=== PATIENT | female | born 1965 | race Caucasian/White ===

== ENCOUNTER 2020-03-01 16:15 | Observation (INO) | payer MEDICARE, OTHER ==
[~2020-03-01] VITALS: Ht 154 cm; Wt 95.2 kg
[~2020-03-01 16:15] MED LIST: ESCI20TA2; NASACORT
[2020-03-01] MEDS ORDERED: FAMOTIDINE 20MG/2ML IV (PEPCID) IV STA (16:31)
[2020-03-01 16:37] LABS: BASOPHILS % (AUTO) 0 % (0-10); EOSINOPHILS # (AUTO) 0.3 10^3/uL (0.0-0.3); EOSINOPHILS % (AUTO) 3 % (0-10); HEMATOCRIT 45 % (35-52); HEMOGLOBIN 15.6 g/dL (11.5-16.0); LYMPHOCYTES # (AUTO) 3.4 10^3/uL (1.0-4.0); LYMPHOCYTES % (AUTO) 34 % (12-44); MEAN CORPUSCULAR HEMOGLOBIN 29 pg (25-34); MEAN CORPUSCULAR HGB CONC 35 g/dL (32-36); MEAN CORPUSCULAR VOLUME 84 fL (80-99); MEAN PLATELET VOLUME 9.6 fL (9.0-12.2); MONOCYTES % (AUTO) 10 % (0-12); NEUTROPHILS # (AUTO) 5.3 10^3/uL (1.8-7.8); NEUTROPHILS % (AUTO) 52 % (42-75); PLATELET COUNT 319 10^3/uL (130-400); WHITE BLOOD COUNT 10.1 10^3/uL (4.3-11.0)
--- NOTE | 2020-03-01 16:38 | ED Chest Pain ---
General Chief Complaint: Chest Pain Stated Complaint: CHEST PAIN/SOB Source: patient Exam Limitations: no limitations (JORDI AGUILAR) History of Present Illness Date Seen by Provider: Mar 01, 2020 Time Seen by Provider: 16:14 Initial Comments Patient presents to the ER by private conveyance from home with chief complaint since yesterday evening when she went to bed she started having some right sided upper chest pain radiating into her neck and right shoulder and right jaw. She has no previous history of this pain or cardiac history. Her brother had his first heart attack when he was 42 years old. She has a history of asthma but she does not smoke cigarettes. She is not having any wheezing or shortness of air. She says the pain is okay as long she sits perfectly still but is soon as she starts getting up and walking around the pain intensifies and feels like pressure on her chest. She has hypertension and hyperlipidemia but no diabetes. She says several years ago when she was in [place] she had a work-up by a sheet writer and was told everything was okay and she was dismissed from his care. She has not establish care with a primary care provider here. She does not take any medicines routinely. She says she cannot take aspirin because it causes her to have seizures. She has not taken anything for the pain. She denies a history of reflux but she does take ibuprofen daily for her rheumatoid arthritis and scleroderma. She used to be followed by a lead assistant manager but is not on any antirheumatic's or antiimmunologic's. She has not been on steroids recently. (JORDI AGUILAR) Initial Comments PT STATES SHE HAS NOT SEEN A DR OF ANY KIND SINCE 2015 (JOSÉ STOKES DO) Allergies and Home Medications Allergies Coded Allergies: Aspirin (Unverified Allergy, Mild, 06/09/08) Penicillins (Unverified Allergy, Mild, 06/09/08) Uncoded Allergies: CODIENE (Allergy, Mild, 06/09/08) Patient Home Medication List Home Medication List Reviewed: Yes (JORDI AGUILAR) Review of Systems Review of Systems Constitutional: No chills, No diaphoresis EENTM: No Blurred Vision, No Double Vision Respiratory: Denies Cough, Denies Shortness of Air Cardiovascular: See HPI, Chest Pain; Denies Edema, Denies Irregular Heart Rate, Denies Lightheadedness, Denies Palpitations, Denies Syncope Gastrointestinal: Denies Abdomen Distended, Denies Abdominal Pain, Denies Constipated, Denies Diarrhea, Denies Difficulty Swallowing, Denies Nausea Genitourinary: Denies Burning, Denies Discharge Musculoskeletal: No back pain, No joint pain (JORDI AGUILAR) All Other Systems Reviewed Negative Unless Noted: Yes (JORDI AGUILAR) Past Bfzdaoq-Nzptbj-Rkajou Hx Past Med/Social Hx: Reviewed and Corrections made (JOSÉ STOKES DO) Patient Social History Alcohol Use: Denies Use Recreational Drug Use: No Smoking Status: Never a Smoker (JORDI AGUILAR) Alcohol Use: Occasionally Uses Recreational Drug Use: No Smoking Status: Never a Smoker (JOSÉ STOKES DO) Seasonal Allergies Seasonal Allergies: Yes (JOSÉ STOKES DO) Past Medical History Surgeries: Yes (C-SPINE SURGERY; LEFT ELBOW ULNAR NERVE SURGERY) Gallbladder, Orthopedic Respiratory: No Cardiac: Yes High Cholesterol, Hypertension Neurological: Yes 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 Genitourinary: No Gastrointestinal: Yes (S/P CHOLECYSTECTOMY; CELIAC DISEASE) Gall Bladder Disease Musculoskeletal: Yes (SCLERODERMA; C-SPINE SURGERY; LEFT ELBOW ULNAR NERVE SURGERY) Rheumatoid Arthritis Endocrine: No HEENT: Yes (SINUS PROBLEMS) Cancer: No Psychosocial: Yes Anxiety, Depression Integumentary: No Blood Disorders: No (JOSÉ STOKES DO) Physical Exam Vital Signs Vital Signs - First Documented 03/01/20 16:26 Temp 35.7 Pulse 76 Resp 18 B/P (MAP) 140/68 (92) Pulse Ox 100 O2 Delivery Room Air (JOSÉ STOKES DO) Vital Signs Capillary Refill : (JORDI AGUILAR) Height, Weight, BMI Height: '" Weight: lbs. oz. kg; BMI Method: General Appearance: WD/WN, Anxious, Mild Distress HEENT: PERRL/EOMI, Pharynx Normal, Moist Mucous Membranes Neck: Full Range of Motion, Normal Inspection Respiratory: Chest Non Tender, Lungs Clear, Normal Breath Sounds, No Accessory Muscle Use, No Respiratory Distress Cardiovascular: Regular Rate, Rhythm, No Edema, Normal Peripheral Pulses Gastrointestinal: Normal Bowel Sounds, Non Tender, Soft Extremity: Normal Capillary Refill, Normal Inspection, Normal Range of Motion, Non Tender, No Calf Tenderness, No Pedal Edema Neurologic/Psychiatric: Alert, Oriented x3 Skin: Normal Color, Damp (Mild sweating) (JORDI AGUILAR) General Appearance: Obese (JOSÉ STOKES K DO) Progress/Results/Core Measures Results/Orders Lab Results Laboratory Tests Test 03/01/20 16:30 Range/Units White Blood Count 10.1 4.3-11.0 10^3/uL Red Blood Count 5.32 H 3.80-5.11 10^6/uL Hemoglobin 15.6 11.5-16.0 g/dL Hematocrit 45 35-52 % Mean Corpuscular Volume 84 80-99 fL Mean Corpuscular Hemoglobin 29 25-34 pg Mean Corpuscular Hemoglobin Concent 35 32-36 g/dL Red Cell Distribution Width 11.6 10.0-14.5 % Platelet Count 319 130-400 10^3/uL Mean Platelet Volume 9.6 9.0-12.2 fL Immature Granulocyte % (Auto) 0 % Neutrophils (%) (Auto) 52 42-75 % Lymphocytes (%) (Auto) 34 12-44 % Monocytes (%) (Auto) 10 0-12 % Eosinophils (%) (Auto) 3 0-10 % Basophils (%) (Auto) 0 0-10 % Neutrophils # (Auto) 5.3 1.8-7.8 10^3/uL Lymphocytes # (Auto) 3.4 1.0-4.0 10^3/uL Monocytes # (Auto) 1.0 0.0-1.0 10^3/uL Eosinophils # (Auto) 0.3 0.0-0.3 10^3/uL Basophils # (Auto) 0.0 0.0-0.1 10^3/uL Immature Granulocyte # (Auto) 0.0 0.0-0.1 10^3/uL Prothrombin Time 12.8 12.2-14.7 SEC INR Comment 0.9 0.8-1.4 Activated Partial Thromboplast Time 33 24-35 SEC D-Dimer < 0.27 0.00-0.49 UG/ML Sodium Level 138 135-145 MMOL/L Potassium Level 4.2 3.6-5.0 MMOL/L Chloride Level 103 98-107 MMOL/L Carbon Dioxide Level 25 21-32 MMOL/L Anion Gap 10 5-14 MMOL/L Blood Urea Nitrogen 18 7-18 MG/DL Creatinine 0.85 0.60-1.30 MG/DL Estimat Glomerular Filtration Rate > 60 BUN/Creatinine Ratio 21 Glucose Level 107 H 70-105 MG/DL Calcium Level 9.2 8.5-10.1 MG/DL Corrected Calcium 9.0 8.5-10.1 MG/DL Magnesium Level 2.2 1.6-2.4 MG/DL Total Bilirubin 0.5 0.1-1.0 MG/DL Aspartate Amino Transf (AST/SGOT) 21 5-34 U/L Alanine Aminotransferase (ALT/SGPT) 20 0-55 U/L Alkaline Phosphatase 90 40-136 U/L Myoglobin 31.8 10.0-92.0 NG/ML Troponin I < 0.028 <0.028 NG/ML Total Protein 7.4 6.4-8.2 GM/DL Albumin 4.3 3.2-4.5 GM/DL Lipase 35 8-78 U/L (JACKY,JOSÉ K DO) My Orders Orders - JACKYJOSÉ K DO Metoprolol Succinate (Xl) Tab (Toprol Xl (03/01/20 18:15) Enoxaparin Injection (Lovenox Injection) (03/01/20 18:15) Clopidogrel Tablet (Plavix Tablet) (03/01/20 18:15) Pantoprazole Injection (Protonix Injecti (03/01/20 18:15) (JACKY,JOSÉ K DO) Medications Given in ED Current Medications Medications Dose Ordered Sig/Issa Route Start Time Stop Time Status Last Admin Dose Admin Al Hydrox/Mg Hydrox/Simethicone 30 ml ONCE ONCE PO 03/01/20 16:45 03/01/20 16:46 DC 03/01/20 16:42 30 ML Clopidogrel Bisulfate 300 mg ONCE ONCE PO 03/01/20 18:15 03/01/20 18:16 03/01/20 18:14 300 MG Enoxaparin Sodium 100 mg ONCE ONCE SC 03/01/20 18:15 03/01/20 18:16 03/01/20 18:15 100 MG Lidocaine HCl 15 ml ONCE ONCE PO 03/01/20 16:45 03/01/20 16:46 DC 03/01/20 16:42 15 ML Pantoprazole 40 mg ONCE ONCE IV 03/01/20 18:15 03/01/20 18:16 03/01/20 18:15 40 MG (JOSÉ STOKES Barbara BLOUNT) Vital Signs/I&O 03/01/20 03/01/20 16:26 16:26 Temp 35.7 Pulse 76 Resp 18 B/P (MAP) 140/68 (92) Pulse Ox 100 O2 Delivery Room Air (JOSÉ STOKES ) Progress Progress Note #1: Time: 16:38 Progress Note Patient is perimenopausal but has not had any hemoptysis coughing shortness of air or hypoxia/tachycardia. Pulmonary embolism is less likely. Initial EKG is reassuring. Her family history and personal medical history is concerning. Even with a negative first troponin her heart score would be 4 points, high risk. Giving her a GI cocktail to entertain the possibility of GERD with her frequent use of NSAIDs. Progress Note #2: Time: 18:00 Progress Note Care of the patient transferred at shift change to Dr. Stokes. Labs are in and her initial troponin and EKG are normal. She does have significant risk factors and we recommend consultation with cardiology for final disposition. (JORDI AGUILAR) Progress Note : Progress Note 1745-ASSUMED CARE FROM DR. AGUILAR. PT IS PAIN-FREE AND HAS NO COMPLAINTS, ALL LAB IS NORMAL, IS EKG. PT HAS NOT REQUIRED ANY NTG AT THIS TIME. (JOSÉ STOKES DO) Initial ECG Impression Date: Mar 01, 2020 Initial ECG Impression Time: 16:19 Initial ECG Rate: 74 Initial ECG Rhythm: Normal Sinus Initial ECG Intervals: Normal Initial ECG Impression: Normal Comment Normal sinus rhythm without clinically relevant ST elevation or depression (JORDI AGUILAR) Diagnostic Imaging Diagonstic Imaging: Xray Plain Films/CT/US/NM/MRI: chest Comments [facility], [place] NAME: LUCILA ALANIZ MED REC#: [id number] PT STATUS: REG ER : 1965 PHYSICIAN: JORDI AGUILAR MD ADMIT DATE: 03/01/20/ER Signed Date of Exam:03/01/20 CHEST 1 VIEW, AP/PA ONLY EXAMINATION: Chest 1 view HISTORY: Chest pain COMPARISON: None available. FINDINGS: Heart size and pulmonary vasculature are normal. The lungs are clear without consolidation, pleural effusion, or pneumothorax. The osseous structures are intact. Cervical fusion hardware is present. IMPRESSION: 1. No acute radiographic abnormality in the chest. Dictated by: Dictated on workstation # [id number] Dict: 03/01/201656 Trans: 03/01/201701 AS6 [id number] Interpreted by: ELIER ZAMORA DO Electronically signed by: ELIER ZAMORA DO 03/01/201701 Reviewed: Reviewed by Me (JORDI AGUILAR) Departure Communication (Admissions) 1757--SPOKE WITH DR. NINO, ORDERS NOTED. ADVISES ADMIT TO HOSPITALIST 1801--SPOKE WITH DR. MARTINEZ, HOSPITALIST, ACCEPTS PT FOR ADMIT (JOSÉ STOKES DO) Impression Primary Impression: Chest pain Qualified Codes: R07.9 - Chest pain, unspecified Disposition: ADMITTED INPATIENT Condition: Stable Admissions Decision to Admit Reason: Admit from ER (General) Decision to Admit/Date: Mar 01, 2020 Time/Decision to Admit Time: 18:00 (JOSÉ STOKES DO) JORDI AGUILAR Mar 01, 2020 16:38 JOSÉ STOKES DO Mar 01, 2020 17:58
[2020-03-01] MEDS ORDERED: LIDOCAINE 2% VISCOUS 15 ML UDC PO ONE (16:45)
[2020-03-01] MEDS ORDERED: ANTACID SUSP 30 ML UDC (MYLANTA) PO ONE (16:45)
[2020-03-01 16:57] LABS: ALBUMIN 4.3 GM/DL (3.2-4.5); CHLORIDE 103 MMOL/L (98-107); INR 0.9 (0.8-1.4); POTASSIUM 4.2 MMOL/L (3.6-5.0); PROTHROMBIN TIME PATIENT 12.8 SEC (12.2-14.7); SODIUM 138 MMOL/L (135-145)
[2020-03-01 16:58] LABS: CALCIUM 9.2 MG/DL (8.5-10.1)
[2020-03-01 16:59] LABS: GLUCOSE 107 MG/DL (70-105); TOTAL PROTEIN 7.4 GM/DL (6.4-8.2)
--- NOTE | 2020-03-01 16:59 | Diagnostic Imaging Report ---
EXAMINATION: Chest 1 view HISTORY: Chest pain COMPARISON: None available. FINDINGS: Heart size and pulmonary vasculature are normal. The lungs are clear without consolidation, pleural effusion, or pneumothorax. The osseous structures are intact. Cervical fusion hardware is present. IMPRESSION: 1. No acute radiographic abnormality in the chest. Dictated by: Dictated on workstation # [id number]
[2020-03-01 17:01] LABS: BILIRUBIN,TOTAL 0.5 MG/DL (0.1-1.0); CARBON DIOXIDE 25 MMOL/L (21-32)
[2020-03-01 17:03] LABS: ALKALINE PHOSPHATASE 90 U/L (40-136); CREATININE SERUM 0.85 MG/DL (0.60-1.30); GFR ESTIMATED > 60
[2020-03-01 17:04] LABS: BUN/CREATININE RATIO 21
[2020-03-01 17:06] LABS: ALANINE AMINOTRANSFERASE 20 U/L (0-55); MAGNESIUM 2.2 MG/DL (1.6-2.4)
[2020-03-01 17:07] LABS: LIPASE 35 U/L (8-78)
[2020-03-01] MEDS ORDERED: ENOXAPARIN 100 MG/1 ML (LOVENOX) SYR SC ONE (18:15)
[2020-03-01] MEDS ORDERED: CLOPIDOGREL 300 MG (PLAVIX) TABLET PO ONE (18:15)
[2020-03-01] MEDS ORDERED: PANTOPRAZOLE 40 MG (PROTONIX) VIAL IV ONE (18:15)
[2020-03-01] MEDS ORDERED: meTOproloL SUCCINATE 50 MG (TOPROL XL) TAB PO SCH (18:15)
[2020-03-01 19:45] VITALS: BP 138/94
--- NOTE | 2020-03-01 19:45 | NUR ---
LUCILA ALANIZ admitted to room 405-1, with an admitting diagnosis of chest pain, on 03/01/20 from [place] via [place], accompanied by ED staff.LUCILA ALANIZ introduced to surroundings, call light, bed controls, phone, TV, temperature control, lights, meal times, smoking policy, visitor policy, side rail policy, bathrooms and showers. Patient Rights given to patient in the handbook. LUCILA ALANIZ verbalizes understanding that [facility] is not responsible for the loss or damage to any personal effects or valuables that are kept in the patients possession during their hospitalization. LUCILA ALANIZ verbalizes understanding of Interdisciplinary Patient Education. Patient and/or family were informed about the Rapid Response Team and its purpose.
[2020-03-01 20:00] VITALS: BP 134/94
[2020-03-01 20:15] VITALS: BP 124/63
[2020-03-01 20:26] VITALS: BP 149/77
[2020-03-01 20:30] VITALS: BP 119/57
[2020-03-01 20:45] VITALS: BP 116/58
--- NOTE | 2020-03-01 21:11 | NUR ---
THIS RN CONTACTED DR NINO AND INFORMED HIM THAT PATIENTS REPEAT 1 HR AFTER ADM EKG CAME BACK ABNORMAL. PATIENTS PREVIOUS EKG IN IN ED WAS OTHERWISE NORMAL. 2045 EKG INDICATED SINUS RHYTHM WITH MULTIPLE PVC'S. NO NEW ORDERS AT THIS TIME.
[2020-03-01] MEDS ORDERED: CATHETER FLUSH 10 ML SYR IV PRN (21:45)
[2020-03-02] VITALS (22 sets, daily range): BP systolic 109–153; BP diastolic 60–99
[2020-03-02] MEDS: CATHETER FLUSH 10 ML SYR IV SCH ×4 (00:03→21:00)
--- NOTE | 2020-03-02 01:27 | NUR ---
PT CALLED THIS RN INTO ROOM AND ADVISED SHE WAS HAVING 7/10 CHEST PAIN. PT DESCRIBED SHARP PAIN ACCOMPANIED BY HEAVY PRESSURE IN CENTER AND ON RIGHT SIDE OF CHEST RADIATING TO RIGHT NECK AND JAW. THIS RN TOOK VITALS AND PERFORMED AN EKG. VS: BP 148/86, HR 68, 18R, 98%O2. EKG INDICATED SINUS RHYTHM, PVC'S, AND NONSPECIFIC T ABNORMALITIES. AT THIS TIME PT STATED HER PAIN HAD MOSTLY SUBSIDED AND WAS REPLACED BY A DULL ACHE. THIS RN CONTACTED DR NINO AND INFORMED HIM OF PT COMPLAINT, VS, AND EKG RESULTS. ORDERS GIVEN FOR TYLENOL 650MG PO Q6HR PRN, AND PERCOCET 5/325 PO Q4HR PRN TO CONTROL PAIN. PATIENT DENIED NEED FOR PAIN MEDICATION AT THIS TIME.
[2020-03-02] MEDS ORDERED: oxyCODONE/APAP 5/325MG (PERCOCET 5) TABLET PO PRN (01:45)
[2020-03-02] MEDS ORDERED: ACETAMINOPHEN 325 MG TABLET PO PRN (01:45)
[2020-03-02] MEDS ORDERED: ENOXAPARIN 100 MG/1 ML (LOVENOX) SYR SC SCH (06:00)
[2020-03-02 06:19] LABS: BASOPHILS % (AUTO) 0 % (0-10); EOSINOPHILS # (AUTO) 0.3 10^3/uL (0.0-0.3); EOSINOPHILS % (AUTO) 3 % (0-10); HEMATOCRIT 43 % (35-52); HEMOGLOBIN 14.7 g/dL (11.5-16.0); LYMPHOCYTES # (AUTO) 2.9 10^3/uL (1.0-4.0); LYMPHOCYTES % (AUTO) 31 % (12-44); MEAN CORPUSCULAR HEMOGLOBIN 29 pg (25-34); MEAN CORPUSCULAR HGB CONC 34 g/dL (32-36); MEAN CORPUSCULAR VOLUME 85 fL (80-99); MEAN PLATELET VOLUME 9.2 fL (9.0-12.2); MONOCYTES # (AUTO) 0.9 10^3/uL (0.0-1.0); MONOCYTES % (AUTO) 9 % (0-12); NEUTROPHILS # (AUTO) 5.3 10^3/uL (1.8-7.8); NEUTROPHILS % (AUTO) 56 % (42-75); PLATELET COUNT 273 10^3/uL (130-400); WHITE BLOOD COUNT 9.4 10^3/uL (4.3-11.0)
[2020-03-02 07:07] LABS: ALANINE AMINOTRANSFERASE 15 U/L (0-55); ALBUMIN 3.7 GM/DL (3.2-4.5); ALKALINE PHOSPHATASE 72 U/L (40-136); BILIRUBIN,TOTAL 0.5 MG/DL (0.1-1.0); BUN/CREATININE RATIO 19; CALCIUM 8.7 MG/DL (8.5-10.1); CARBON DIOXIDE 23 MMOL/L (21-32); CHLORIDE 105 MMOL/L (98-107); CHOLESTEROL 237 MG/DL (< 200); CREATININE SERUM 0.78 MG/DL (0.60-1.30); GFR ESTIMATED > 60; GLUCOSE 103 MG/DL (70-105); HDL CHOLESTEROL 38 MG/DL (40-60); SODIUM 137 MMOL/L (135-145); TOTAL PROTEIN 6.5 GM/DL (6.4-8.2); TRIGLYCERIDES 217 MG/DL (<150); VLDL CHOLESTEROL 43 MG/DL (5-40)
[2020-03-02] MEDS ORDERED: PANTOPRAZOLE 40 MG (PROTONIX) VIAL IV SCH (09:00)
[2020-03-02] MEDS: meTOproloL SUCCINATE 50 MG (TOPROL XL) TAB PO SCH (09:16)
[2020-03-02] MEDS: CLOPIDOGREL 75 MG (PLAVIX) TABLET PO SCH (09:16)
[2020-03-02] MEDS ORDERED: REGADENOSON 0.4 MG/5 ML SYR (LEXISCAN) IV ONE (10:00)
[2020-03-02] MEDS ORDERED: methylPREDNISolone 125 MG (Solu-MEDROL) VIAL IV SCH (10:30)
[2020-03-02] MEDS ORDERED: FAMOTIDINE 20 MG (PEPCID) TABLET PO SCH (10:30)
[2020-03-02] MEDS ORDERED: diphenhydrAMINE 25 MG TAB (BENADRYL) PO SCH (10:30)
--- NOTE | 2020-03-02 10:36 | Consultation-Cardiology ---
HPI-Cardiology Cardiology Consultation: Date of Consultation 03/02/20 Time Seen by a Provider: 10:10 Date of Admission 03-01-2020 Attending Physician Cynthia Huerta MD Admitting Physician No,Local Physician Consulting Physician Mary Vora MD HPI: Chief Complaint: Chest pain Ms. Ley is a 54 yr old female admitted to 405 from the ED with c/o CP. She reports the pain started a few days ago. She reports it was mid-sternal, radiating up her neck, into her shoulder blades and down left arm. She states the discomfort was brought on with exertion and relieved with rest. Chest pain describes as a pressure, ache. Discomfort off and on all day yesterday. Reports feeling SOB with the chest pain. C/O palpitations, hard heart beat with the chest pain. No c/o n/v/d. No c/o fever or chills. No c/o LE swelling. No syncope or near syncope. Review of Systems-Cardiology Review of Systems Constitutional: No chills, No fever Eyes: No vision change Ears/Nose/Throat: No epistaxis, No recent hearing loss Respiratory: As described under HPI Cardiovascular: As described under HPI Gastrointestinal: No constipation, No diarrhea, No nausea, No vomiting Genitourinary: No dysuria, No hematuria Musculoskeletal: no symptoms reported Skin: No rash on exposed areas, No ulcerations on exposed areas Psychiatric/Neurological: No anxiety, No depression, No seizure, No focal w eakness, No syncope Hematologic: No bleeding abnormalities All Other Systems Reviewed Negative Unless Noted: Yes GPD-Rtguds-Qylxwk Hx Patient Social History Alcohol Use: Occasionally Uses Recreational Drug Use: No Smoking Status: Never a Smoker Recent Foreign Travel: No Recent Infectious Disease Expo: No Past Medical History PMH As described under Assessment. Family Medical History Family Medical History: Family h/o father having CAD sisi his 50's. Reports brothers x 2 having CAD and TX's in thier 40's. Family History: 19 FATHER Myocardial infarction, Onset:60 years & older Cataracts, Onset:60 years & older Deafness or hearing loss Dementia Hypertension Severe allergy, Onset: 19 MOTHER Arthritis, Onset:Adolescence Diabetes mellitus Severe allergy, Onset:Childhood G8 BROTHER Alcoholism, Onset:15's - 20 Myocardial infarction, Onset:40's - 50 Psychosocial problem, Onset:25's - 30 G8 BROTHER Arthritis, Onset:Adolescence Asthma Diabetes mellitus Hypertension G8 SISTER Arthritis, Onset: Allergies and Home Medications Allergies Coded Allergies: Penicillins (Unverified Allergy, Mild, 06/09/08) aspirin (Unverified Allergy, Mild, convulsions, 03/02/20) Uncoded Allergies: CODIENE (Allergy, Mild, 06/09/08) Physical Exam-Cardiology Physical Exam Vital Signs/I&O 03/02/20 03/02/20 03/02/20 03/02/20 00:00 00:10 01:17 03:46 Temp 36.2 36.4 Pulse 74 72 68 68 Resp 20 18 18 B/P (MAP) 141/82 (101) 148/86 (106) 145/64 (91) Pulse Ox 99 98 98 O2 Delivery Room Air Room Air Room Air 03/02/20 03/02/20 03/02/20 07:00 08:00 08:00 Temp 36.3 Pulse 63 79 Resp 16 B/P (MAP) 153/70 (97) Pulse Ox 96 96 O2 Delivery Room Air Room Air Capillary Refill : Less Than 3 SecondsLess Than 3 Seconds Constitutional: AAO x 3, well-developed, well-nourished HEENT: hearing is well preserved, oral hygience is good Neck: No carotid bruit; carotid pulses are 2 + bilaterally Respiratory: No accessory muscle use, No respiratory distress; chest expansion is symmetric, chest is bilaterally symmetric, lungs clear to auscultation Cardiovascular: regular rate-rhythm; No JVD; S1 and S2 Gastrointestinal: No tender; soft, round, audible bowel sounds Extremities: no lower extremity edema bilateral Neurologic/Psychiatric: grossly intact (moves all extremities) Skin: No rash on exposed areas, No ulcerations on exposed areas Data Review Labs Laboratory Tests 03/01/20 16:30: White Blood Count 10.1, Red Blood Count 5.32H, Hemoglobin 15.6, Hematocrit 45, Mean Corpuscular Volume 84, Mean Corpuscular Hemoglobin 29, Mean Corpuscular Hemoglobin Concent 35, Red Cell Distribution Width 11.6, Platelet Count 319, Mean Platelet Volume 9.6, Immature Granulocyte % (Auto) 0, Neutrophils (%) (Auto) 52, Lymphocytes (%) (Auto) 34, Monocytes (%) (Auto) 10, Eosinophils (%) (Auto) 3, Basophils (%) (Auto) 0, Neutrophils # (Auto) 5.3, Lymphocytes # (Auto) 3.4, Monocytes # (Auto) 1.0, Eosinophils # (Auto) 0.3, Basophils # (Auto) 0.0, Immature Granulocyte # (Auto) 0.0, Prothrombin Time 12.8, INR Comment 0.9, Activated Partial Thromboplast Time 33, D-Dimer < 0.27, Sodium Level 138, Potassium Level 4.2, Chloride Level 103, Carbon Dioxide Level 25, Anion Gap 10, Blood Urea Nitrogen 18, Creatinine 0.85, Estimat Glomerular Filtration Rate > 60, BUN/Creatinine Ratio 21, Glucose Level 107H, Calcium Level 9.2, Corrected Calcium 9.0, Magnesium Level 2.2, Total Bilirubin 0.5, Aspartate Amino Transf (AST/SGOT) 21, Alanine Aminotransferase (ALT/SGPT) 20, Alkaline Phosphatase 90, Myoglobin 31.8, Troponin I < 0.028, Total Protein 7.4, Albumin 4.3, Lipase 35 03/02/20 05:31: White Blood Count 9.4, Red Blood Count 5.05, Hemoglobin 14.7, Hematocrit 43, Mean Corpuscular Volume 85, Mean Corpuscular Hemoglobin 29, Mean Corpuscular Hemoglobin Concent 34, Red Cell Distribution Width 11.7, Platelet Count 273, Mean Platelet Volume 9.2, Immature Granulocyte % (Auto) 0, Neutrophils (%) (Auto) 56, Lymphocytes (%) (Auto) 31, Monocytes (%) (Auto) 9, Eosinophils (%) (Auto) 3, Basophils (%) (Auto) 0, Neutrophils # (Auto) 5.3, Lymphocytes # (Auto) 2.9, Monocytes # (Auto) 0.9, Eosinophils # (Auto) 0.3, Basophils # (Auto) 0.0, Immature Granulocyte # (Auto) 0.0, Sodium Level 137, Potassium Level 4.0, Chloride Level 105, Carbon Dioxide Level 23, Anion Gap 9, Blood Urea Nitrogen 15, Creatinine 0.78, Estimat Glomerular Filtration Rate > 60, BUN/Creatinine Ratio 19, Glucose Level 103, Calcium Level 8.7, Corrected Calcium 8.9, Total Bilirubin 0.5, Aspartate Amino Transf (AST/SGOT) 16, Alanine Aminotransferase (ALT/SGPT) 15, Alkaline Phosphatase 72, Total Protein 6.5, Albumin 3.7, Triglycerides Level 217H, Cholesterol Level 237H, LDL Cholesterol Direct 177H, VLDL Cholesterol 43H, HDL Cholesterol 38L Laboratory Tests 03/01/20 16:30 03/02/20 05:31 Radiology NAME: [facility] REC#: [id number] PT STATUS: REG ER : 1965 PHYSICIAN: JORDI AGUILAR MD ADMIT DATE: 03/01/20/ER Signed Date of Exam:03/01/20 CHEST 1 VIEW, AP/PA ONLY EXAMINATION: Chest 1 view HISTORY: Chest pain COMPARISON: None available. FINDINGS: Heart size and pulmonary vasculature are normal. The lungs are clear without consolidation, pleural effusion, or pneumothorax. The osseous structures are intact. Cervical fusion hardware is present. IMPRESSION: 1. No acute radiographic abnormality in the chest. Dictated by: Dictated on workstation # [id number] Dict: 03/01/201656 Trans: 03/01/201701 AS6 [id number] Interpreted by: ELIER ZAMORA DO Electronically signed by: ELIER ZAMORA DO 03/01/201701 ECG Impression ECG Comment SR with PVC A/P-Cardiology Assessment/Admission Diagnosis Chest pain with features suggestive of exertional angina HTN Scleroderma H/O rheumatic fever as a child Celiac dz HLD H/O occular stroke Allergy to ASA - reports h/o convulsions Reported shellfish allergy Family h/o premature CAD (brothers x2 and father) Discussion and Recomendations Chest pain with features of stable angina - advise cardiac cath . We have discussed the procedure, risks, benefits and potential complications of cardiac cath with possible ad hoc coronary intervention. She provides informed consent We will proceed later today She has a reported shellfish allergy, we will pre-med She has a reported ASA allergy Advise echocardiogram to eval structure and function Monitor lab Replace electrolytes as indicated Continue Plavix and BB Add statin Further recs will be based on her hospital course We would like to thank Dr. Huerta for this consult We have spoken with Dr. Huerta regarding plan of care Clinical Quality Measures AMI/AHF: ASA po Prior to arrival: No DVT/VTE Risk/Contraindication: Risk Factor Score Per Nursin RFS Level Per Nursing on Admit: 3=High GERARD NOLASCO Mar 02, 2020 10:36
[2020-03-02] MEDS: NS IV 1000 ML 1,000 ML IV SCH ×2 (10:44→16:35)
[2020-03-02] MEDS ORDERED: 5-HY100C3 PO (11:38)
[2020-03-02] MEDS ORDERED: IBUP-2185 PO (11:38)
[2020-03-02] MEDS ORDERED: MAGN250T13 PO (11:38)
[2020-03-02] MEDS ORDERED: DIPH25CA48 PO (11:38)
[2020-03-02] MEDS ORDERED: VITA-189 PO (11:38)
[2020-03-02] MEDS ORDERED: FERR-84 PO (11:38)
[2020-03-02] MEDS ORDERED: DICL20GE TP (11:38)
--- NOTE | 2020-03-02 11:40 | NUR ---
SPOKE WITH THE PT TO COMPLETE THE MED REC PT DENIES TAKING ANY PRESCRIPTION MEDICATIONS OTC MEDS 5 HTP MAGNESIUM IBUPROFEN BENADRYL B-COMPLEX IRON VOLTAREN GEL
[2020-03-02] MEDS ORDERED: NS IV 1000 ML 0 ML ONE (12:04)
[2020-03-02] MEDS ORDERED: HEParin (CATH LAB) 2,000 ML IV ONE (12:04)
[2020-03-02] MEDS ORDERED: LIDOCAINE 1% INJ 20 ML 20 ML VIAL ONE (12:04)
[2020-03-02] MEDS ORDERED: fentaNYL INJECTION 100 MCG/2 ML AMP ONE (12:45)
[2020-03-02] MEDS ORDERED: MIDAZOLAM 5 MG/5 ML (VERSED) VIAL ONE (12:45)
--- NOTE | 2020-03-02 13:42 | History & Physical-Hospitalist ---
History of Present Illness HPI/Chief Complaint Pt is a 54yoCF with a PMH of HTN, HLD who presented to the ER due to chest pain. She states that this has been going on for a while and is worse with exertion. She states she has a history of asthma and thought that that was all it was but as it continued she decided to seek evaluation. She has a significant family his tory of heart disease. Her father and two of her brothers have had heart attacks very young (one of [place] at 55yo and one had his first [place] at 42yo). Source: patient Date Seen 03/02/20 Time Seen by a Provider: 09:30 Attending Physician Tiffanie Huerta MD PCP No,Local Physician Referring Physician Date of Admission Mar 01, 2020 at 18:00 Home Medications & Allergies Home Medications Reviewed patient Home Medication Reconciliation performed by pharmacy medication reconciliations ct technician and/or nursing. Patients Allergies have been reviewed. Allergies Allergies Coded Allergies nitrofurantoin (Verified Allergy, Severe, 03/02/20) shellfish derived (Verified Allergy, Severe, 03/02/20) Penicillins (Unverified Allergy, Mild, 06/09/08) aspirin (Unverified Allergy, Mild, convulsions, 03/02/20) Uncoded Allergies CODIENE ( Allergy, Mild, 06/09/08) Past Jkcnwfn-Ypmxxt-Qqiqam Hx Past Med/Social Hx: Reviewed and Corrections made Patient Social History Alcohol Use: Occasionally Uses Recreational Drug Use: No Smoking Status: Never a Smoker Recent Foreign Travel: No Contact w/other who traveled: No Recent Hopitalizations: No Recent Infectious Disease Expo: No Seasonal Allergies Seasonal Allergies: Yes Past Medical History Surgeries: Gallbladder, Orthopedic Cardiac: High Cholesterol, Hypertension Neurological: 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 Menopausal Gastrointestinal: Gall Bladder Disease Musculoskeletal: Rheumatoid Arthritis Psychosocial: Anxiety, Depression Skin/Integumentary: Psoriasis History of Blood Disorders: No Family History Reviewed Nursing Family Hx Alcoholism G8 BROTHER, Onset:15's - 20 Arthritis 19 MOTHER, Onset:Adolescence G8 BROTHER, Onset:Adolescence G8 SISTER, Onset:25's - 30 Asthma G8 BROTHER Cataracts 19 FATHER, Onset:60 years & older Deafness or hearing loss 19 FATHER Dementia 19 FATHER Diabetes mellitus 19 MOTHER G8 BROTHER Hypertension 19 FATHER G8 BROTHER Myocardial infarction 19 FATHER, Onset:60 years & older G8 BROTHER, Onset:40's - 50 Psychosocial problem G8 BROTHER, Onset:25's - 30 Severe allergy 19 FATHER, Onset:[place] 19 MOTHER, Onset:Childhood Review of Systems Constitutional: No chills, No fever EENTM: no symptoms reported Respiratory: see HPI Cardiovascular: see HPI Gastrointestinal: No abdominal pain, No nausea, No vomiting Genitourinary: frequency Musculoskeletal: no symptoms reported Skin: no symptoms reported Psychiatric/Neurological: Anxiety Physical Exam Physical Exam Vital Signs Vital Signs - First Documented 03/01/20 16:26 Temp 35.7 Pulse 76 Resp 18 B/P (MAP) 140/68 (92) Pulse Ox 100 O2 Delivery Room Air Capillary Refill : Less Than 3 SecondsLess Than 3 Seconds Height, Weight, BMI Height: '" Weight: lbs. oz. kg; 40.14 BMI Method: General Appearance: No Apparent Distress, WD/WN HEENT: PERRL/EOMI, Moist Mucous Membranes Neck: Normal Inspection, Supple Respiratory: Lungs Clear, No Accessory Muscle Use, No Respiratory Distress Cardiovascular: Regular Rate, Rhythm, No Murmur Gastrointestinal: Normal Bowel Sounds, Non Tender, Soft Extremity: No Calf Tenderness, No Pedal Edema Neurologic/Psychiatric: Alert, Oriented x3, Normal Mood/Affect Skin: Normal Color, Warm/Dry Results Results/Procedures Labs Laboratory Tests 03/01/20 16:30 03/02/20 05:31 Patient resulted labs reviewed. Imaging: Reviewed Imaging Report Assessment/Plan Admission Diagnosis Chest pain Admission Status: Inpatient Order (span 2 midnights) Reason for Inpatient Admission: see below Assessment and Plan Chest pain Features somewhat concerning for cardiac etiology Has very significant family history of heart disease Cardiology consulted, appreciate recs Plan is for cardiac cath today per cardiology Severe allergy to ASA Clinical Quality Measures AMI/AHF: ASA po Prior to arrival: No DVT/VTE Risk/Contraindication: Risk Factor Score Per Nursin RFS Level Per Nursing on Admit: 3=High TIFFANIE HUERTA MD Mar 02, 2020 13:42
[2020-03-02] MEDS ORDERED: DICLOFENAC 1% GEL 100 GM (VOLTAREN) TUBE TP PRN (13:45)
[2020-03-02] MEDS ORDERED: EPTIFIBATIDE BOLUS 20 ML IV ONE (14:00)
[2020-03-02] MEDS ORDERED: HEParin 1000 UNIT/ML (10ML VIAL) FOR BOLUS ONE (14:00)
[2020-03-02] MEDS ORDERED: NITRO DRIP 25000 MCG/D5W 250 ML IV ONE (14:33)
[2020-03-02] MEDS ORDERED: CLOPIDOGREL 300 MG (PLAVIX) TABLET PO ONE (14:46)
[2020-03-02] MEDS ORDERED: ASPIRIN 81 MG CHEW (CHILDREN'S ASA) ONE (14:46)
[2020-03-02] MEDS ORDERED: NS IV 1000 ML 1,000 ML ONE (15:10)
--- NOTE | 2020-03-02 15:12 | Consultation-Cardiology ---
HPI-Cardiology Cardiology Consultation: Date of Consultation 03/02/20 Time Seen by a Provider: 10:10 Date of Admission Attending Physician Cynthia Huerta MD Admitting Physician No,Local Physician Consulting Physician SERENITY NINO MD, FACP, FACC HPI: Chief Complaint: Chest pain Ms. Ley is a 54 yr old female admitted to 405 from the ED with c/o CP. She reports the pain started a few days ago. She reports it was mid-sternal, radiating up her neck, into her shoulder blades and down left arm. She states the discomfort was brought on with exertion and relieved with rest. Chest pain describes as a pressure, ache. Discomfort off and on all day yesterday. Reports feeling SOB with the chest pain. C/O palpitations, hard heart beat with the chest pain. No c/o n/v/d. No c/o fever or chills. No c/o LE swelling. No syncope or near syncope. Review of Systems-Cardiology Review of Systems Constitutional: No chills, No fever Eyes: No vision change Ears/Nose/Throat: No epistaxis, No recent hearing loss Respiratory: As described under HPI Cardiovascular: As described under HPI Gastrointestinal: No constipation, No diarrhea, No nausea, No vomiting Genitourinary: No dysuria, No hematuria Musculoskeletal: no symptoms reported Skin: No rash on exposed areas, No ulcerations on exposed areas Psychiatric/Neurological: No anxiety, No depression, No seizure, No focal weakness, No syncope Hematologic: No bleeding abnormalities All Other Systems Reviewed Negative Unless Noted: Yes IGL-Edetoz-Rktfba Hx Patient Social History Alcohol Use: Occasionally Uses Recreational Drug Use: No Smoking Status: Never a Smoker Recent Foreign Travel: No Recent Infectious Disease Expo: No Past Medical History PMH As described under Assessment. Family Medical History Family Medical History: Family h/o father having CAD sisi his 50's. Reports brothers x 2 having CAD and WA's in thier 40's. Family History: Alcoholism G8 BROTHER, Onset:15's - 20 Arthritis 19 MOTHER, Onset:Adolescence G8 BROTHER, Onset:Adolescence G8 SISTER, Onset:25's - 30 Asthma G8 BROTHER Cataracts 19 FATHER, Onset:60 years & older Deafness or hearing loss 19 FATHER Dementia 19 FATHER Diabetes mellitus 19 MOTHER G8 BROTHER Hypertension 19 FATHER G8 BROTHER Myocardial infarction 19 FATHER, Onset:60 years & older G8 BROTHER, Onset:40's - 50 Psychosocial problem G8 BROTHER, Onset:25's - 30 Severe allergy 19 FATHER, Onset: 19 MOTHER, Onset:Childhood Allergies and Home Medications Allergies Coded Allergies: nitrofurantoin (Verified Allergy, Severe, 03/02/20) shellfish derived (Verified Allergy, Severe, 03/02/20) Penicillins (Unverified Allergy, Mild, 06/09/08) aspirin (Unverified Allergy, Mild, convulsions, 03/02/20) codeine (Verified Allergy, Unknown, 03/02/20) Home Medications 5-Hydroxytryptophan 100 Mg Capsule, 200 MG PO HS, (Reported) TAKES 2 CAPS Diclofenac Sodium 20 Gm Gel..gram., 1 APPLIC TP PRN PRN for PAIN-BREAKTHROUGH, (Reported) Diphenhydramine HCl 25 Mg Capsule, 25 MG PO QID, (Reported) Ferrous Sulfate 325 Mg Tablet, 325 MG PO Q48H, (Reported) ALTERNATES B-COMPLEX AND IRON Ibuprofen 200 Mg Capsule, 400 MG PO QID, (Reported) Magnesium Oxide 250 Mg Tablet, 250 MG PO BID, (Reported) Vitamin B Complex 1 Each Tablet, 1 EACH PO Q48H, (Reported) ALTERNATES B-COMPLEX AND IRON Patient Home Medication List Home Medication List Reviewed: Yes Physical Exam-Cardiology Physical Exam Vital Signs/I&O 03/02/20 03/02/20 03/02/20 03/02/20 03:46 07:00 08:00 08:00 Temp 36.4 36.3 Pulse 68 63 79 Resp 18 16 B/P (MAP) 145/64 (91) 153/70 (97) Pulse Ox 98 96 96 O2 Delivery Room Air Room Air Room Air 03/02/20 03/02/20 12:00 12:30 Temp 36.4 Pulse 57 56 Resp 20 B/P (MAP) 142/68 (92) Pulse Ox 96 O2 Delivery Room Air Capillary Refill : Less Than 3 SecondsLess Than 3 Seconds Constitutional: AAO x 3, well-developed, well-nourished HEENT: hearing is well preserved, oral hygience is good Neck: No carotid bruit; carotid pulses are 2 + bilaterally Respiratory: No accessory muscle use, No respiratory distress; chest expansion is symmetric, chest is bilaterally symmetric, lungs clear to auscultation Cardiovascular: regular rate-rhythm; No JVD; S1 and S2 Gastrointestinal: No tender; soft, round, audible bowel sounds Extremities: no lower extremity edema bilateral Neurologic/Psychiatric: grossly intact (moves all extremities) Skin: No rash on exposed areas, No ulcerations on exposed areas Data Review Labs Laboratory Tests 03/01/20 16:30: White Blood Count 10.1, Red Blood Count 5.32H, Hemoglobin 15.6, Hematocrit 45, Mean Corpuscular Volume 84, Mean Corpuscular Hemoglobin 29, Mean Corpuscular Hemoglobin Concent 35, Red Cell Distribution Width 11.6, Platelet Count 319, Mean Platelet Volume 9.6, Immature Granulocyte % (Auto) 0, Neutrophils (%) (Auto) 52, Lymphocytes (%) (Auto) 34, Monocytes (%) (Auto) 10, Eosinophils (%) (Auto) 3, Basophils (%) (Auto) 0, Neutrophils # (Auto) 5.3, Lymphocytes # (Auto) 3.4, Monocytes # (Auto) 1.0, Eosinophils # (Auto) 0.3, Basophils # (Auto) 0.0, Immature Granulocyte # (Auto) 0.0, Prothrombin Time 12.8, INR Comment 0.9, Activated Partial Thromboplast Time 33, D-Dimer < 0.27, Sodium Level 138, Potassium Level 4.2, Chloride Level 103, Carbon Dioxide Level 25, Anion Gap 10, Blood Urea Nitrogen 18, Creatinine 0.85, Estimat Glomerular Filtration Rate > 60, BUN/Creatinine Ratio 21, Glucose Level 107H, Calcium Level 9.2, Corrected Calcium 9.0, Magnesium Level 2.2, Total Bilirubin 0.5, Aspartate Amino Transf (AST/SGOT) 21, Alanine Aminotransferase (ALT/SGPT) 20, Alkaline Phosphatase 90, Myoglobin 31.8, Troponin I < 0.028, Total Protein 7.4, Albumin 4.3, Lipase 35 03/02/20 05:31: White Blood Count 9.4, Red Blood Count 5.05, Hemoglobin 14.7, Hematocrit 43, Mean Corpuscular Volume 85, Mean Corpuscular Hemoglobin 29, Mean Corpuscular Hemoglobin Concent 34, Red Cell Distribution Width 11.7, Platelet Count 273, Mean Platelet Volume 9.2, Immature Granulocyte % (Auto) 0, Neutrophils (%) (Auto) 56, Lymphocytes (%) (Auto) 31, Monocytes (%) (Auto) 9, Eosinophils (%) (Auto) 3, Basophils (%) (Auto) 0, Neutrophils # (Auto) 5.3, Lymphocytes # (Auto) 2.9, Monocytes # (Auto) 0.9, Eosinophils # (Auto) 0.3, Basophils # (Auto) 0.0, Immature Granulocyte # (Auto) 0.0, Sodium Level 137, Potassium Level 4.0, Chloride Level 105, Carbon Dioxide Level 23, Anion Gap 9, Blood Urea Nitrogen 15, Creatinine 0.78, Estimat Glomerular Filtration Rate > 60, BUN/Creatinine Ratio 19, Glucose Level 103, Calcium Level 8.7, Corrected Calcium 8.9, Total Bilirubin 0.5, Aspartate Amino Transf (AST/SGOT) 16, Alanine Aminotransferase (ALT/SGPT) 15, Alkaline Phosphatase 72, Total Protein 6.5, Albumin 3.7, Triglycerides Level 217H, Cholesterol Level 237H, LDL Cholesterol Direct 177H, VLDL Cholesterol 43H, HDL Cholesterol 38L A/P-Cardiology Assessment/Admission Diagnosis Chest pain with features suggestive of unstable angina HTN Scleroderma H/O rheumatic fever as a child Celiac dz HLD H/O occular stroke Allergy to ASA - reports h/o convulsions Reported shellfish allergy Family h/o premature CAD (brothers x2 and father) Discussion and Recomendations Chest pain with features of stable angina - advise cardiac cath . We have d iscussed the procedure, risks, benefits and potential complications of cardiac cath with possible ad hoc coronary intervention. She provides informed consent We will proceed later today She has a reported shellfish allergy, we will pre-med She has a reported ASA intolerance (convulsions) but is very vague on recalling any actual history. States took it only one time. If she needs PCI, we need to retry ASA Advise echocardiogram to eval structure and function Monitor lab Replace electrolytes as indicated Continue Plavix and BB Add statin Further recs will be based on her hospital course We would like to thank Dr. Huerta for this consult We have spoken with Dr. Huerta regarding plan of care Clinical Quality Measures AMI/AHF: ASA po Prior to arrival: No DVT/VTE Risk/Contraindication: Risk Factor Score Per Nursin RFS Level Per Nursing on Admit: 3=High SERENITY NINO MD FACP FACC CCDS Mar 02, 2020 15:12
[2020-03-02] MEDS ORDERED: PATIENT MAY USE OWN MEDS, ALL PO SCH (15:15)
--- NOTE | 2020-03-02 16:33 | CARDIAC CATHETERIZATION ---
DATE OF SERVICE: 03/02/2020 CARDIAC CATHETERIZATION AND CORONARY INTERVENTION REPORT INDICATIONS FOR PROCEDURE: The patient is a 54-year-old lady, who was hospitalized with chest discomfort and symptoms suggestive of unstable angina. Cardiac catheterization was carried out after having obtained informed consent for cardiac catheterization ad hoc coronary intervention, if needed. DESCRIPTION OF PROCEDURE: She was brought to the cardiac catheterization laboratory in a fasting state. Right groin was prepared and draped in the usual sterile fashion. Lidocaine 1% was used for local anesthesia. Modified Seldinger technique was used to advance a 5-Nauruan sheath in the right femoral artery, 5-Nauruan JR4 catheter was used for left coronary angiography, 5-Nauruan JR4 catheter was used for right coronary angiography and 5-Nauruan pigtail catheter was used for left heart catheterization and left ventricular angiography. PERCUTANEOUS INTERVENTION TO THE FIRST DIAGONAL BRANCH OF THE LEFT ANTERIOR DESCENDING OF FIRST DIAGONAL: The left anterior descending was exhibiting 95% stenosis and was felt to be the likely culprit for patient's unstable angina. We used a 6-Nauruan JR4 guide catheter to carry out intervention. This catheter was advanced after the sheath had been exchanged over a wire for a 6-Nauruan sheath. We gave 5000 units of intravenous heparin and double bolus of Integrilin. We engaged the left coronary artery and we were able to advance a BMW wire across the lesion and the tip was placed in the distal part of the vessel and balloon angioplasty was carried out with a Mini Trek 2.0 x 20 mm balloon, which reduced the stenosis to less than 30%. This was an ostial lesion and is not suitable for stenting because of the stent likely to protrude into the left anterior descending. We have gotten good results with balloon angioplasty only. We waited several minutes to make sure that there was no rebound; there was none. The patient tolerated the procedure well. Angioplasty equipment was removed. The sheath was sutured in place. She was transferred to the floor for manual sheath removal. HEMODYNAMICS: Left ventricular end-diastolic pressure following coronary angiography was 24 mmHg. There was no significant pressure gradient on pullback across the aortic valve. Ascending aortic pressure is 130/73 with a mean of 95 mmHg. CORONARY ANGIOGRAPHY: Left main coronary artery does not exhibit significant disease. Left anterior descending artery has diffuse mild plaque. The first diagonal branch had 95% ostial stenosis to which successful balloon angioplasty was carried out for reduction of stenosis to less than 30%. Distally, this diagonal branch has multiple up to 50% stenosis. The left circumflex artery is small and does not exhibit significant disease. 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 It is a dominant vessel. It has mild plaques. LEFT VENTRICULAR ANGIOGRAPHY: Left ventricular angiography was carried out in the right anterior oblique projection. Global left ventricular systolic function is normal. Left ventricular ejection fraction is approximately 60%. CONCLUSIONS: 1. Coronary artery disease primarily consisting of 95% ostial stenosis of a first diagonal of the left anterior descending to which successful balloon angioplasty was carried out with reduced the stenosis to less than 30%. Elsewhere, the patient exhibits mild to moderate diffuse coronary plaques. 2. Normal global left ventricular systolic function with an ejection fraction of approximately 60%. 3. Elevated left ventricular end-diastolic pressure. DISCUSSION AND RECOMMENDATIONS: Dual antiplatelet therapy is being continued. Risk factor modification has been reviewed. She remains hospitalized for continuing observation after today's procedure. Job ID: [id number] DocumentID: [id number] Dictated Date: 03/02/2020 15:05:53 Shoe Lining Fitter Date: 03/02/2020 16:32:37 Dictated By: SERENITY NINO MD, MA, FACP, FACC, MTDD
[2020-03-02] MEDS: FERROUS SULF 325 MG (IRON) TAB PO SCH (16:36)
[2020-03-02] MEDS ORDERED: morphine INJ 4 MG/ML 1 ML (VIAL/SYRINGE) ONE (20:35)
[2020-03-02] MEDS: ENOXAPARIN 40 MG/0.4 ML (LOVENOX) SYR SC SCH (20:38)
[2020-03-02] MEDS: morphine INJ 4 MG/ML 1 ML (VIAL/SYRINGE) IVP PRN ×2 (20:40→21:49)
[2020-03-02] MEDS ORDERED: PANTOPRAZOLE 40 MG (PROTONIX) VIAL IV ONE (22:15)
[2020-03-02] MEDS ORDERED: ANTACID SUSP 30 ML UDC (MYLANTA) PO ONE (23:00)
[2020-03-03] VITALS (23 sets, daily range): BP systolic 107–135; BP diastolic 50–95
[2020-03-03] MEDS: NS IV 1000 ML 1,000 ML IV SCH ×2 (01:15→05:43)
[2020-03-03] MEDS: morphine INJ 4 MG/ML 1 ML (VIAL/SYRINGE) IVP PRN ×3 (03:10→08:11)
[2020-03-03 03:35] LABS: HEMOGLOBIN 14.8 g/dL (11.5-16.0); MEAN PLATELET VOLUME 9.3 fL (9.0-12.2); WHITE BLOOD COUNT 17.3 10^3/uL (4.3-11.0)
[2020-03-03 03:48] LABS: CHLORIDE 105 MMOL/L (98-107); POTASSIUM 4.2 MMOL/L (3.6-5.0); SODIUM 134 MMOL/L (135-145)
[2020-03-03 03:49] LABS: CALCIUM 8.7 MG/DL (8.5-10.1)
[2020-03-03 03:50] LABS: GLUCOSE 133 MG/DL (70-105)
[2020-03-03 03:51] LABS: CARBON DIOXIDE 17 MMOL/L (21-32)
[2020-03-03 03:54] LABS: CREATININE SERUM 0.74 MG/DL (0.60-1.30); GFR ESTIMATED > 60; PHOSPHORUS 4.1 MG/DL (2.3-4.7)
[2020-03-03 03:55] LABS: BUN/CREATININE RATIO 20
--- NOTE | 2020-03-03 04:13 | Pulmonary Consultation ---
History of Present Illness History of Present Illness Date Seen by Provider: Mar 03, 2020 Time Seen by Provider: 04:11 Date of Admission Allergies and Home Medications Allergies Coded Allergies: nitrofurantoin (Verified Allergy, Severe, 03/02/20) shellfish derived (Verified Allergy, Severe, 03/02/20) atorvastatin (Verified Allergy, Intermediate, 03/02/20) pt states it makes her hurt all over/extreme pain Penicillins (Unverified Allergy, Mild, 06/09/08) aspirin (Unverified Allergy, Mild, convulsions, 03/02/20) codeine (Verified Allergy, Unknown, 03/02/20) Home Medications 5-Hydroxytryptophan 100 Mg Capsule, 200 MG PO HS, (Reported) TAKES 2 CAPS Diclofenac Sodium 20 Gm Gel..gram., 1 APPLIC TP PRN PRN for PAIN-BREAKTHROUGH, (Reported) Diphenhydramine HCl 25 Mg Capsule, 25 MG PO QID, (Reported) Ferrous Sulfate 325 Mg Tablet, 325 MG PO Q48H, (Reported) ALTERNATES B-COMPLEX AND IRON Ibuprofen 200 Mg Capsule, 400 MG PO QID, (Reported) Magnesium Oxide 250 Mg Tablet, 250 MG PO BID, (Reported) Vitamin B Complex 1 Each Tablet, 1 EACH PO Q48H, (Reported) ALTERNATES B-COMPLEX AND IRON Past Touljcn-Aqmbey-Cthzcs Hx Past Med/Social Hx: Reviewed and Corrections made Patient Social History Alcohol Use: Occasionally Uses Recreational Drug Use: No Smoking Status: Never a Smoker Recent Foreign Travel: No Contact w/Someone Who Travel: No Recent Infectious Disease Expo: No Recent Hopitalizations: No Physical Abuse: No Sexual Abuse: No Mistreated: No Fear: No Seasonal Allergies Seasonal Allergies: Yes Past Medical History Surgeries: Yes (C-SPINE SURGERY; LEFT ELBOW ULNAR NERVE SURGERY) Gallbladder, Orthopedic Respiratory: No Asthma Cardiac: Yes High Cholesterol, Hypertension Neurological: Yes 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 Genitourinary: No Gastrointestinal: Yes (S/P CHOLECYSTECTOMY; CELIAC DISEASE) Gall Bladder Disease Musculoskeletal: Yes (SCLERODERMA; C-SPINE SURGERY; LEFT ELBOW ULNAR NERVE SURGERY) Rheumatoid Arthritis Endocrine: No HEENT: Yes (SINUS PROBLEMS) Cancer: No Psychosocial: Yes Anxiety, Depression Integumentary: No Psoriasis Blood Disorders: No Family Medical History Reviewed Nursing Family Hx Alcoholism G8 BROTHER, Onset:15s - 20 Arthritis 19 MOTHER, Onset:Adolescence G8 BROTHER, Onset:Adolescence G8 SISTER, Onset:25's - 30 Asthma G8 BROTHER Cataracts 19 FATHER, Onset:60 years & older Deafness or hearing loss 19 FATHER Dementia 19 FATHER Diabetes mellitus 19 MOTHER G8 BROTHER Hypertension 19 FATHER G8 BROTHER Myocardial infarction 19 FATHER, Onset:60 years & older G8 BROTHER, Onset:40's - 50 Psychosocial problem G8 BROTHER, Onset:25's - 30 Severe allergy 19 FATHER, Onset:[place] 19 MOTHER, Onset:Childhood Review of Systems Time Seen by Provider: 04:13 Sepsis Event Evaluation Height, Weight, BMI Height: '" Weight: lbs. oz. kg; 40.14 BMI Method: Exam Exam Vital Signs Date Time Temp Pulse Resp B/P (MAP) Pulse Ox O2 Delivery O2 Flow Rate FiO2 03/03/20 00:19 36.3 03/03/20 00:00 71 117/75 (89) Room Air 03/02/20 23:00 72 117/77 (90) Room Air 03/02/20 22:00 74 145/99 (114) Room Air 03/02/20 21:00 68 137/82 (100) Room Air 03/02/20 20:00 68 116/79 (91) Room Air 03/02/20 19:20 35.7 03/02/20 19:00 72 03/02/20 19:00 69 121/89 (100) Room Air 03/02/20 18:00 93 116/86 (96) 98 Room Air 03/02/20 17:45 81 123/67 (85) 98 Room Air 03/02/20 17:30 59 115/63 (80) 97 Room Air 03/02/20 17:15 68 127/69 (88) 98 Room Air 03/02/20 17:00 62 118/65 (82) 97 Room Air 03/02/20 16:45 70 123/60 (81) 97 Room Air 03/02/20 16:30 67 126/75 (92) 97 Room Air 03/02/20 16:15 61 109/64 (79) 95 Room Air 03/02/20 16:05 63 21 121/76 (91) 96 Room Air 03/02/20 15:50 64 18 109/79 (89) 96 Room Air 12/31/20 15:33 65 18 127/66 (86) 96 Room Air 03/02/20 15:20 66 18 122/80 (94) 95 Room Air 03/02/20 12:30 56 03/02/20 12:00 36.4 57 20 142/68 (92) 96 Room Air 03/02/20 08:00 96 Room Air 03/02/20 08:00 36.3 79 16 153/70 (97) 96 Room Air 03/02/20 07:00 63 I & O 03/03/20 07:00 Intake Total 390 ml Output Total 750 ml Balance -360 ml Height & Weight Height: '" Weight: lbs. oz. kg; 40.14 BMI Method: General Appearance: No Apparent Distress, WD/WN HEENT: PERRL/EOMI, Moist Mucous Membranes Neck: Normal Inspection, Supple Respiratory: Lungs Clear, No Accessory Muscle Use, No Respiratory Distress Cardiovascular: Regular Rate, Rhythm, No Murmur Capillary Refill: Less Than 3 Seconds Extremity: No Calf Tenderness, No Pedal Edema Neurologic/Psychiatric: Alert, Oriented x3, Normal Mood/Affect Skin: Normal Color, Warm/Dry Results Lab Laboratory Tests 03/01/20 16:30 03/02/20 05:31 03/03/20 03:15 Assessment/Plan Assessment/Plan Chest pain s/p cath with balooning of LAD -Cardiology following Leukocytosis - possibly reactive -Monitor JOHANNA AGUIRRE DO Mar 03, 2020 04:13
[2020-03-03] MEDS: CATHETER FLUSH 10 ML SYR IV SCH ×3 (05:40→22:26)
[2020-03-03] MEDS: ANTACID SUSP 30 ML UDC (MYLANTA) PO SCH ×4 (05:43→20:39)
[2020-03-03] MEDS ORDERED: NITROGLYCERIN 0.4 MG SL TABS BTL 25'S SL PRN (07:30)
--- NOTE | 2020-03-03 08:05 | NUR ---
TIMELINE NOTE BELOW: 03/02/20 @ 2028 PT C/O RIGHT GROIN PAIN AT CATH INSERTION SITE. THIS RN AT BEDSIDE TO ASSESS AND HEMATOMA NOTED AND MANUAL PRESSURE STARTED AT THIS TIME. * @ 2029 DR. NINO NOTIFIED OF HEMATOMA, NEW ORDERS RECEIVED TO HOLD 2100 DOSE OF LOVENOX AND GIVE MORPHINE FOR PAIN PRN, SEE EMAR AND ORDER HX. * @2039 MANUAL PRESSURE RELEASED AT THIS TIME, PATIENT'S VITALS STABLE AND RIGHT GROIN SOFT. 10LB SANDBAG APPLIED AND PATIENT'S BEDREST RESTARTED, PATIENT'S BED FLAT IN LOW POSITION WITH WHEELS LOCKED. * @ 2139 PATIENT C/O CHEST PRESSURE 4/10. STAT EKG COMPLETED AT THIS TIME. DR. NINO NOTIFIED AND ORDERS RECEIVED. SEE ORDER HX AND EMAR. 03/03/20 @ 0309 PT C/O RIGHT GROIN PAIN AT CATH INSERTION SITE. THIS RN AT BEDSIDE TO ASSESS AND HEMATOMA NOTED AND MANUAL PRESSURE STARTED AT THIS TIME. DR. NINO NOTIFIED. 03/03/20 @ 0330 MANUAL PRESSURE RELEASED AT THIS TIME, PATIENT'S VITALS STABLE AND RIGHT GROIN SOFT WITH SLIGHT BRUISING AND SWELLING. FEMOSTOP APPLIED WITH PRESSURE OF 95 mmHg. PATIENT'S BEDREST RESTARTED, PATIENT'S BED FLAT IN LOW POSITION WITH WHEELS LOCKED. THIS RN WILL CONTINUE TO MONITOR. 03/03/20 @ 0545 TEXTILES SALES REPRESENTATIVE RN'S AT BEDSIDE TO ASSESS PATIENT'S RIGHT GROIN AND FEMOSTOP. MANUAL PRESSURE APPLIED BY TEXTILES SALES REPRESENTATIVE RN. PATIENT'S VITALS STABLE, PATIENT STILL ON 4 HOUR BEDREST WITH BED FLAT AT THIS TIME. THIS RN WILL CONTINUE TO MONITOR.
[2020-03-03] MEDS: meTOproloL SUCCINATE 50 MG (TOPROL XL) TAB PO SCH (08:11)
[2020-03-03] MEDS: PANTOPRAZOLE 40 MG (PROTONIX) TAB PO SCH (08:12)
[2020-03-03] MEDS ORDERED: CLOPIDOGREL 75 MG (PLAVIX) TABLET PO SCH (09:00)
--- NOTE | 2020-03-03 09:23 | Progress Note - Hospitalist ---
Subjective HPI/CC On Admission Date Seen by Provider: Mar 03, 2020 Time Seen by Provider: 09:17 Pt is a 54yoCF with a PMH of HTN, HLD who presented to the ER due to chest pain. She states that this has been going on for a while and is worse with exertion. She states she has a history of asthma and thought that that was all it was but as it continued she decided to seek evaluation. She has a significant family history of heart disease. Her father and two of her brothers have had heart attacks very young (one of CA at 55yo and one had his first CA at 42yo). Subjective/Events-last exam Pt reports feeling well this morning. Had complications from cath with hematoma overnight but now off bedrest and stabilized. Patient states she will continue to lay flat until she sees the csr technician just to make sure. Says all previous symptoms are resolved. Objective Exam Vital Signs Vital Signs Date Time Temp Pulse Resp B/P (MAP) Pulse Ox O2 Delivery O2 Flow Rate FiO2 03/03/20 07:34 36.1 03/03/20 06:00 72 118/95 (103) 97 Room Air 03/02/20 16:05 21 Capillary Refill : Less Than 3 SecondsLess Than 3 Seconds General Appearance: No Apparent Distress, WD/WN Respiratory: Lungs Clear, No Respiratory Distress Cardiovascular: Regular Rate, Rhythm, No Murmur Neurologic/Psychiatric: Alert, Oriented x3 Results/Procedures Lab Laboratory Tests 03/03/20 03:15 Patient resulted labs reviewed. Imaging: Reviewed Imaging Report Assessment/Plan Assessment and Plan Assess & Plan/Chief Complaint CAD HTN Balloon angioplasty done yesterday Symptoms improved EF on cath around 60% Continue on Plavix, has sever ASA allergy Had bleed followign sheath removal- improved with pressure Hgb 14.8 Has Lipitor allergy as well Leukocytosis Likely reactive, trend DVT ppx: Lovenox on hold for bleed Diagnosis/Problems Diagnosis/Problems (1) CAD (coronary artery disease) (2) Chest pain Status: Acute Qualifiers: Chest pain type: unspecified Qualified Codes: R07.9 - Chest pain, unspecified Clinical Quality Measures AMI/AHF: ASA po Prior to arrival: No DVT/VTE Risk/Contraindication: Risk Factor Score Per Nursin RFS Level Per Nursing on Admit: 3=High TIFFANIE MARTINEZ MD Mar 03, 2020 09:23
[2020-03-03] MEDS: ENOXAPARIN 40 MG/0.4 ML (LOVENOX) SYR SC SCH ×2 (12:04→21:01)
[2020-03-03] MEDS: ASPIRIN E.C. 81 MG (ECOTRIN) TAB PO SCH (12:14)
[2020-03-03] MEDS: CLOPIDOGREL 75 MG (PLAVIX) TABLET PO SCH (12:14)
--- NOTE | 2020-03-03 14:56 | Progress Note - Cardiology ---
Cardiology SOAP Progress Note Subjective: No cp or palp or syncope or shortness of breath No groin or leg discomfort No focal weakness No n/v Objective: I&O/Vital Signs 03/03/20 03/03/20 03/03/20 03/03/20 03:19 04:00 04:00 05:00 Temp 36.4 Pulse 71 70 66 B/P (MAP) 125/72 (89) 111/63 (79) 134/68 (90) Pulse Ox 100 96 94 O2 Delivery Room Air Room Air Room Air 03/03/20 03/03/20 03/03/20 03/03/20 06:00 06:38 07:00 07:34 Temp 36.1 Pulse 72 65 64 B/P (MAP) 118/95 (103) 114/71 (85) Pulse Ox 97 94 O2 Delivery Room Air Room Air 03/03/20 03/03/20 03/03/20 03/03/20 08:00 08:00 09:00 10:00 Pulse 66 70 67 B/P (MAP) 130/75 (93) 113/63 (80) 114/63 (80) Pulse Ox 96 96 95 95 O2 Delivery Room Air Room Air Room Air Room Air 03/03/20 03/03/20 03/03/20 03/03/20 11:00 11:21 12:00 12:31 Temp 36.9 Pulse 72 74 73 B/P (MAP) 125/57 (79) 127/63 (84) Pulse Ox 95 96 O2 Delivery Room Air Room Air 03/03/20 03/03/20 13:00 14:00 Pulse 76 67 B/P (MAP) 128/63 (84) 113/60 (77) Pulse Ox 94 94 O2 Delivery Room Air Room Air 03/03/20 00:00 Intake Total 240 ml Output Total 500 ml Balance -260 ml Swelling: mild amount of swelling Bruising: mild bruising Constitutional: AAO x 3, well-developed, well-nourished Respiratory: No accessory muscle use, No respiratory distress; chest expansion is symmetric, chest is bilaterally symmetric, lungs clear to auscultation Cardiovascular: regular rate-rhythm; No JVD; S1 and S2 Gastrointestional: No tender; soft, round, audible bowel sounds Extremities: no lower extremity edema bilateral Neurologic/Psychiatric: grossly intact (moves all extremities) Skin: No rash on exposed areas, No ulcerations on exposed areas Results/Procedures: Labs Laboratory Tests 03/02/20 17:10: Activated Partial Thromboplast Time 90H 03/03/20 03:15: White Blood Count 17.3H, Red Blood Count 5.08, Hemoglobin 14.8, Hematocrit 42, Mean Corpuscular Volume 83, Mean Corpuscular Hemoglobin 29, Mean Corpuscular Hemoglobin Concent 35, Red Cell Distribution Width 11.6, Platelet Count 356, Mean Platelet Volume 9.3, Sodium Level 134L, Potassium Level 4.2, Chloride Level 105, Carbon Dioxide Level 17L, Anion Gap 12, Blood Urea Nitrogen 15, Creatinine 0.74, Estimat Glomerular Filtration Rate > 60, BUN/Creatinine Ratio 20, Glucose Level 133H, Calcium Level 8.7, Phosphorus Level 4.1, Magnesium Level 2.0 Laboratory Tests 03/01/20 16:30 03/02/20 05:31 03/03/20 03:15 A/P: Assessment: Unstable angina due to CAD. Card cath and PCI on 03/02/20: Coronary artery disease primarily consisting of 95% ostial stenosis of a first diagonal of the left anterior descending to which successful balloon angioplasty was carried out with reduced the stenosis to less than 30%. Elsewhere, the patient exhibits mild to moderate diffuse coronary plaques. Normal global left ventricular systolic function with an ejection fraction of approximately 60%. Elevated left ventricular end-diastolic pressure. Multiple groin bleed post-cath on 03/02/20 HTN Scleroderma H/O rheumatic fever as a child Celiac dz HLD H/O occular stroke Allergy to ASA - reports h/o convulsions Reported shellfish allergy Family h/o premature CAD (brothers x2 and father) Plan: * Reviewed and discussed with her the cath findings and the intervention undertaken * Continue to keep in hospital because of multiple groin bleed after card cath of 03/02/20 * Continue DAPT. Has been tolerating ASA w/o difficulty so far * Monitor labs Clinical Quality Measures AMI/AHF: ASA po Prior to arrival: SERENITY Stout MD FACP [facility] CCDS Mar 03, 2020 14:56
[2020-03-04] VITALS (15 sets, daily range): BP systolic 97–139; BP diastolic 44–86
[2020-03-04 03:26] LABS: BASOPHILS % (AUTO) 0 % (0-10); EOSINOPHILS # (AUTO) 0.1 10^3/uL (0.0-0.3); EOSINOPHILS % (AUTO) 1 % (0-10); HEMATOCRIT 36 % (35-52); HEMOGLOBIN 12.6 g/dL (11.5-16.0); LYMPHOCYTES # (AUTO) 2.4 10^3/uL (1.0-4.0); LYMPHOCYTES % (AUTO) 19 % (12-44); MEAN CORPUSCULAR HEMOGLOBIN 29 pg (25-34); MEAN CORPUSCULAR HGB CONC 35 g/dL (32-36); MEAN CORPUSCULAR VOLUME 84 fL (80-99); MEAN PLATELET VOLUME 9.3 fL (9.0-12.2); MONOCYTES # (AUTO) 1.2 10^3/uL (0.0-1.0); MONOCYTES % (AUTO) 9 % (0-12); NEUTROPHILS # (AUTO) 9.1 10^3/uL (1.8-7.8); NEUTROPHILS % (AUTO) 71 % (42-75); PLATELET COUNT 294 10^3/uL (130-400); WHITE BLOOD COUNT 12.8 10^3/uL (4.3-11.0)
[2020-03-04 03:52] LABS: CHLORIDE 104 MMOL/L (98-107); POTASSIUM 3.9 MMOL/L (3.6-5.0); SODIUM 134 MMOL/L (135-145)
[2020-03-04 03:53] LABS: CALCIUM 8.2 MG/DL (8.5-10.1)
[2020-03-04 03:54] LABS: GLUCOSE 115 MG/DL (70-105)
[2020-03-04 03:55] LABS: CARBON DIOXIDE 22 MMOL/L (21-32)
[2020-03-04 03:57] LABS: CREATININE SERUM 0.71 MG/DL (0.60-1.30); GFR ESTIMATED > 60; PHOSPHORUS 1.6 MG/DL (2.3-4.7)
[2020-03-04 03:58] LABS: BUN/CREATININE RATIO 30
[2020-03-04 03:59] LABS: MAGNESIUM 2.1 MG/DL (1.6-2.4)
[2020-03-04] MEDS: ANTACID SUSP 30 ML UDC (MYLANTA) PO SCH ×2 (06:43→12:06)
[2020-03-04] MEDS: CATHETER FLUSH 10 ML SYR IV SCH ×2 (06:44→14:00)
--- NOTE | 2020-03-04 07:19 | Discharge Inst-Simple/Standard ---
Discharge Inst-Standard Patient Instructions/Follow Up Plan of Care/Instructions/FU: Please continue to take your medications as written. Please follow up with your primary care doctor to follow up this hospital stay and with Dr Diony palumbo. Please continue to wear a mask to slow the spread of COVID19. Activity as Tolerated: Yes Discharge Diet: Cardiac Diet Return to The Hospital For: chest pain, shortness of breath, bleeding or pain at your incision site, fever, cough, if you symptoms return or if you feel you are getting worse. TIFFANIE MARTINEZ MD Mar 04, 2020 07:19
--- NOTE | 2020-03-04 08:11 | Discharge Summary ---
Diagnosis/Chief Complaint Date of Admission Mar 01, 2020 at 18:00 Date of Discharge Discharge Date: Mar 04, 2020 Admission Diagnosis Chest pain Primary Care No,Local Physician Discharge Diagnosis (1) CAD (coronary artery disease) (2) Chest pain Status: Acute Discharge Summary Procedures/Consulations Dr Vora- Cardiology Discharge Physical Exam Allergies: Coded Allergies: nitrofurantoin (Verified Allergy, Severe, 03/02/20) shellfish derived (Verified Allergy, Severe, 03/02/20) atorvastatin (Verified Allergy, Intermediate, 03/02/20) pt states it makes her hurt all over/extreme pain Penicillins (Unverified Allergy, Mild, 06/09/08) aspirin (Unverified Allergy, Mild, convulsions, 03/02/20) codeine (Verified Allergy, Unknown, 03/02/20) Vitals & I&Os Vital Signs Date Time Temp Pulse Resp B/P (MAP) Pulse Ox O2 Delivery O2 Flow Rate FiO2 03/04/20 16:00 03/04/20 15:00 78 Room Air 03/04/20 14:00 97 03/03/20 19:40 37.0 03/03/20 18:00 26 General Appearance: No Apparent Distress, Obese Respiratory: Lungs Clear, No Respiratory Distress Cardiovascular: Regular Rate, Rhythm, No Murmur Neurologic/Psychiatric: Alert, Oriented x3 Hospital Course Pt is a 54yoCF who was admitted with typical chest pain concerning for angina. She was taken to kiln labourer which revealed stenosis of the first diagonal of the LAD and successful balloon angioplasty was performed. She was started on DAPT and despite previous intolerance of aspirin tolerated this well. Her post cath care was complicated by bleed and hematoma which resolved with pressure being held. She was monitored an extra night to make sure she had no further issues and did well. She was discharged home to continue DAPT therapy and follow up with Dr Vora. She was advised to establish with a primary care doctor as well. Labs (last 24 hrs) Microbiology 03/02/20 MRSA Screen - Final, Complete MRSA not isolated Patient resulted labs reviewed. Pending Labs Imaging: Reviewed Imaging Report Discussion & Recommendations Discharge Planning: >30 minutes discharge planning Discharge Home Medications: Active Scripts Active Pravastatin Sodium 20 Mg Tablet 20 Mg PO DAILY Aspirin EC (Aspirin) 81 Mg Tablet.dr 81 Mg PO DAILY 90 Days Metoprolol Succinate 50 Mg Tab.er.24h 50 Mg PO DAILY 90 Days Clopidogrel (Clopidogrel Bisulfate) 75 Mg Tablet 75 Mg PO DAILY 90 Days Reported Voltaren Arthritis Pain (Diclofenac Sodium) 20 Gm Gel..gram. 1 Applic TP PRN PRN Iron (Ferrous Sulfate) 325 Mg Tablet 325 Mg PO Q48H ALTERNATES B-COMPLEX AND IRON B Complex (Vitamin B Complex) 1 Each Tablet 1 Each PO Q48H ALTERNATES B-COMPLEX AND IRON Diphenhydramine HCl 25 Mg Capsule 25 Mg PO QID Magnesium (Magnesium Oxide) 250 Mg Tablet 250 Mg PO BID 5-Htp (5-Hydroxytryptophan) 100 Mg Capsule 200 Mg PO HS TAKES 2 CAPS Instructions to patient/family Please see electronic discharge instructions given to patient. Clinical Quality Measures AMI/AHF: ASA po Prior to arrival: No DVT/VTE Risk/Contraindication: Risk Factor Score Per Nursin RFS Level Per Nursing on Admit: 3=High Problem Qualifiers (1) CAD (coronary artery disease): Qualified Codes: I25.10 - Atherosclerotic heart disease of [place] coronary artery without angina pectoris; I25.84 - Coronary atherosclerosis due to calcified coronary lesion (2) Chest pain: Chest pain type: unspecified Qualified Codes: R07.9 - Chest pain, unspecified TIFFANIE MARTINEZ MD Mar 04, 2020 08:11
[2020-03-04] MEDS: ASPIRIN E.C. 81 MG (ECOTRIN) TAB PO SCH (08:51)
[2020-03-04] MEDS: FERROUS SULF 325 MG (IRON) TAB PO SCH (08:51)
[2020-03-04] MEDS: PANTOPRAZOLE 40 MG (PROTONIX) TAB PO SCH (08:52)
[2020-03-04] MEDS: CLOPIDOGREL 75 MG (PLAVIX) TABLET PO SCH (08:52)
[2020-03-04] MEDS: meTOproloL SUCCINATE 50 MG (TOPROL XL) TAB PO SCH (08:52)
[2020-03-04] MEDS: ENOXAPARIN 40 MG/0.4 ML (LOVENOX) SYR SC SCH (08:52)
[2020-03-04] MEDS: NS IV 1000 ML 1,000 ML IV SCH (10:46)
[2020-03-04] MEDS ORDERED: PRAV20TA3 PO (15:34)
[2020-03-04] MEDS ORDERED: METO50TA7 PO (15:34)
[2020-03-04] MEDS ORDERED: CLOP75TA28 PO (15:34)
[2020-03-04] MEDS ORDERED: ASPI-1238 PO (15:34)
--- NOTE | 2020-03-04 15:43 | Progress Note - Cardiology ---
Cardiology SOAP Progress Note Subjective: No cp or palp or syncope or shortness of breath or groin discomfort or leg discomfort or leg discoloration No n/v/d Wishes to go home Objective: I&O/Vital Signs 03/04/20 03/04/20 03/04/20 03/04/20 04:00 05:00 06:00 07:00 Pulse 77 70 138 94 B/P (MAP) 105/60 (75) 122/70 (88) 129/71 (85) Pulse Ox 96 97 94 O2 Delivery Room Air Room Air Room Air 03/04/20 03/04/20 03/04/20 03/04/20 07:00 08:00 08:45 09:00 Pulse 80 84 80 B/P (MAP) 139/86 (103) 128/61 (83) 131/76 (94) Pulse Ox 94 95 95 95 O2 Delivery Room Air Room Air Room Air Room Air 03/04/20 03/04/20 03/04/20 03/04/20 10:00 11:00 12:00 12:33 Pulse 81 69 77 85 B/P (MAP) 122/70 (87) 122/56 (78) 124/69 (87) Pulse Ox 94 100 94 O2 Delivery Room Air Room Air Room Air 03/04/20 03/04/20 03/04/20 13:00 14:00 15:00 Pulse 73 78 78 B/P (MAP) 136/71 (92) 112/51 (71) 120/57 (78) Pulse Ox 97 97 O2 Delivery Room Air Room Air Room Air 03/04/20 00:00 Intake Total 1150 ml Output Total 75 ml Balance 1075 ml Swelling: mild amount of swelling Bruising: mild bruising Constitutional: AAO x 3, well-developed, well-nourished Respiratory: No accessory muscle use, No respiratory distress; chest expansion is symmetric, chest is bilaterally symmetric, lungs clear to auscultation Cardiovascular: regular rate-rhythm; No JVD; S1 and S2 Gastrointestional: No tender; soft, round, audible bowel sounds Extremities: no lower extremity edema bilateral Neurologic/Psychiatric: grossly intact (moves all extremities) Skin: No rash on exposed areas, No ulcerations on exposed areas Results/Procedures: Labs Laboratory Tests 03/04/20 03:07: White Blood Count 12.8H, Red Blood Count 4.30, Hemoglobin 12.6, Hematocrit 36, Mean Corpuscular Volume 84, Mean Corpuscular Hemoglobin 29, Mean Corpuscular Hemoglobin Concent 35, Red Cell Distribution Width 11.9, Platelet Count 294, Mean Platelet Volume 9.3, Immature Granulocyte % (Auto) 1, Neutrophils (%) (Auto) 71, Lymphocytes (%) (Auto) 19, Monocytes (%) (Auto) 9, Eosinophils (%) (Auto) 1, Basophils (%) (Auto) 0, Neutrophils # (Auto) 9.1H, Lymphocytes # (Auto) 2.4, Monocytes # (Auto) 1.2H, Eosinophils # (Auto) 0.1, Basophils # (Auto) 0.0, Immature Granulocyte # (Auto) 0.1, Sodium Level 134L, Potassium Level 3.9, Chloride Level 104, Carbon Dioxide Level 22, Anion Gap 8, Blood Urea Nitrogen 21H, Creatinine 0.71, Estimat Glomerular Filtration Rate > 60, BUN/Creatinine Ratio 30, Glucose Level 115H, Calcium Level 8.2L, Phosphorus Level 1.6L, Magnesium Level 2.1 Microbiology 03/02/20 MRSA Screen - Final, Complete MRSA not isolated A/P: Assessment: Unstable angina due to CAD, treated with PCI (see below) Card cath and PCI on 03/02/20: Coronary artery disease primarily consisting of 95% ostial stenosis of a first diagonal of the left anterior descending to which successful balloon angioplasty was carried out with reduced the stenosis to less than 30%. Elsewhere, the patient exhibits mild to moderate diffuse coronary plaques. Normal global left ventricular systolic function with an ejection fraction of approximately 60%. Elevated left ventricular end-diastolic pressure. Multiple groin bleed post-cath on 03/02/20 HTN Hyperlipidemia. Labs of 03/02/20: LDL-C 177, HDL-C 43, Trig 217 HLD H/o occular stroke Reported allergy to ASA, but has been able to take ASA without any difficulty or symptoms during this hospitalization Reported shellfish allergy Scleroderma and celiac dz and rheumatic fever as a child, by history Family h/o premature CAD (brothers x2 and father) Plan: * Continue DAPT. Has been tolerating ASA w/o difficulty so far * D/c ibuprofen * Refuses atrovastatin, but is willing to try a different statin. We wrote for pravastatin 20 mg daily with instructions to have a lipid panel and CMP drawn in a few weeks if she is able to tolerate pravastatin * Risk factor modification reviewed * Outpt f/u advised Clinical Quality Measures AMI/AHF: ASA po Prior to arrival: SERENITY Stout MD FACP [facility] Mar 04, 2020 15:43
== END 2020-03-04 16:02 | disposition home or self-care (01) ==
LOC: EDUNIT# 16:15 → ER 16:17 → 4TH 18:00 → EDLOC 18:00 → INTOOBSV 18:00 → 4TH 03-02 13:58 → ICU 03-02 16:25
PROVIDERS: ADMIT Family Medicine; ATTEND Family Medicine
DX: I25.10 Atherosclerotic heart disease of native coronary artery without angina pectoris (principal); I10 Essential (primary) hypertension; E78.5 Hyperlipidemia, unspecified; E78.00 Pure hypercholesterolemia, unspecified; G43.909 Migraine, unspecified, not intractable, without status migrainosus; F41.9 Anxiety disorder, unspecified; F32.9 Major depressive disorder, single episode, unspecified; I25.84 Coronary atherosclerosis due to calcified coronary lesion; M06.9 Rheumatoid arthritis, unspecified; Z79.82 Long term (current) use of aspirin; Z79.899 Other long term (current) drug therapy; Z88.0 Allergy status to penicillin; Z91.013 Allergy to seafood; Z88.5 Allergy status to narcotic agent; Z88.1 Allergy status to other antibiotic agents; Z88.8 Allergy status to other drugs, medicaments and biological substances; Z86.73 Personal history of transient ischemic attack (TIA), and cerebral infarction without residual deficits; Z83.3 Family history of diabetes mellitus
CPT/HCPCS: 71045; 80048 ×2; 80053 ×2; 80061; 83690; 83735 ×3; 83874; 84100 ×2; 84484; 85025 ×3; 85027; 85347; 85379; 85610; 85730 ×2; 87081; 92920; 93306; 93458; 94760; 99284; C1725; C1769; C1887 ×2; C1894 ×2; 36415

== ENCOUNTER 2020-04-20 11:56 | Inpatient (IN) | payer MEDICARE ==
[~2020-04-20] VITALS: Ht 154.9 cm; Wt 92.1 kg
[~2020-04-20 11:56] MED LIST changes: +5-HY100C3 PO; +ASPI-1238 PO; +CLOP75TA28 PO; +DICL20GE TP; +DIPH25CA48 PO; +FERR-84 PO; +IBUP-2185 PO; +MAGN250T13 PO; +METO50TA7 PO; +PRAV20TA3 PO; +VITA-189 PO
--- NOTE | 2020-04-20 12:14 | ED Chest Pain ---
General Stated Complaint: CP Source: patient, EMS Exam Limitations: no limitations History of Present Illness Date Seen by Provider: Apr 20, 2020 Time Seen by Provider: 12:12 Initial Comments To ER by EMS from home with intermittent waxing and waning chest pain since midnight. The pain was so intense that it awakened her from sleep at 5 AM and she just stayed awake. She was here in January on the 2019 for chest pain and underwent PCI which showed coronary artery disease consisting of 95% ostial stenosis of a first diagonal of the left anterior descending. She underwent successful balloon angioplasty and was placed on dual antiplatelet therapy. She had her full dose aspirin this morning and she has not missed any Plavix doses. 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 NTG SL WATER PLANT MAINTENANCE MECHANIC: No Allergies and Home Medications Allergies Coded Allergies: nitrofurantoin (Verified Allergy, Severe, 03/02/20) shellfish derived (Verified Allergy, Severe, 03/02/20) atorvastatin (Verified Allergy, Intermediate, 03/02/20) pt states it makes her hurt all over/extreme pain Penicillins (Unverified Allergy, Mild, 06/09/08) aspirin (Unverified Allergy, Mild, convulsions, 03/02/20) codeine (Verified Allergy, Unknown, 03/02/20) Home Medications 5-Hydroxytryptophan 100 Mg Capsule, 200 MG PO HS, (Reported) TAKES 2 CAPS Aspirin 81 Mg Tablet.dr, 81 MG PO DAILY Prescribed by: SERENITY NINO on 03/04/20 153 Clopidogrel Bisulfate 75 Mg Tablet, 75 MG PO DAILY Prescribed by: SERENITY NINO on 03/04/20 1534 Diclofenac Sodium 20 Gm Gel..gram., 1 APPLIC TP PRN PRN for PAIN-BREAKTHROUGH, (Reported) Diphenhydramine HCl 25 Mg Capsule, 25 MG PO QID, (Reported) Ferrous Sulfate 325 Mg Tablet, 325 MG PO Q48H, (Reported) ALTERNATES B-COMPLEX AND IRON Magnesium Oxide 250 Mg Tablet, 250 MG PO BID, (Reported) Metoprolol Succinate 50 Mg Tab.er.24h, 50 MG PO DAILY Prescribed by: SERENITY NINO on 03/04/20 153 Pravastatin Sodium 20 Mg Tablet, 20 MG PO DAILY Prescribed by: SERENITY NINO on 03/04/20 1534 Vitamin B Complex 1 Each Tablet, 1 EACH PO Q48H, (Reported) ALTERNATES B-COMPLEX AND IRON Patient Home Medication List Home Medication List Reviewed: Yes Review of Systems Review of Systems Constitutional: see HPI EENTM: No Symptoms Reported Respiratory: No Symptoms Reported Cardiovascular: See HPI, Chest Pain Gastrointestinal: No Symptoms Reported Genitourinary: No Symptoms Reported Musculoskeletal: no symptoms reported Skin: no symptoms reported Psychiatric/Neurological: No Symptoms Reported Endocrine: No Symptoms Reported Hematologic/Lymphatic: No Symptoms Reported Past Gifpvro-Lcmote-Tmeuvy Hx Patient Social History Recent Hopitalizations: No Seasonal Allergies Seasonal Allergies: Yes Past Medical History Surgeries: Yes (C-SPINE SURGERY; LEFT ELBOW ULNAR NERVE SURGERY) Gallbladder, Orthopedic Respiratory: No Asthma Cardiac: Yes High Cholesterol, Hypertension Neurological: Yes 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 Genitourinary: No Gastrointestinal: Yes (S/P CHOLECYSTECTOMY; CELIAC DISEASE) Gall Bladder Disease Musculoskeletal: Yes (SCLERODERMA; C-SPINE SURGERY; LEFT ELBOW ULNAR NERVE SURGERY) Rheumatoid Arthritis Endocrine: No HEENT: Yes (SINUS PROBLEMS) Cancer: No Psychosocial: Yes Anxiety, Depression Integumentary: No Psoriasis Blood Disorders: No Family Medical History Alcoholism G8 BROTHER, Onset:15's - 20 Arthritis 19 MOTHER, Onset:Adolescence G8 BROTHER, Onset:Adolescence G8 SISTER, Onset:25's - 30 Asthma G8 BROTHER Cataracts 19 FATHER, Onset:60 years & older Deafness or hearing loss 19 FATHER Dementia 19 FATHER Diabetes mellitus 19 MOTHER G8 BROTHER Hypertension 19 FATHER G8 BROTHER Myocardial infarction 19 FATHER, Onset:60 years & older G8 BROTHER, Onset:40's - 50 Psychosocial problem G8 BROTHER, Onset:25's - 30 Severe allergy 19 FATHER, Onset:[place] 19 MOTHER, Onset:Childhood Physical Exam Vital Signs Vital Signs - First Documented 04/20/20 12:00 Temp 35.7 Pulse 62 Resp 18 B/P (MAP) 131/84 (100) Pulse Ox 97 O2 Delivery Room Air Capillary Refill : Height, Weight, BMI Height: '" Weight: lbs. oz. kg; 40.14 BMI Method: General Appearance: No Apparent Distress, WD/WN, Other (Alert and oriented. EMS put an inch of Nitropaste on the left upper chest, at the time of arrival to ER she is chest pain-free. Heart rate is 59 sinus with PVCs. Blood pressure 131/84. No ST segment changes and no appreciable change from her March 02 EKG. She is alert oriented talkative pleasant and in no distress.) Neck: Full Range of Motion, Normal Inspection Respiratory: Normal Breath Sounds, No Accessory Muscle Use, No Respiratory Distress Cardiovascular: Regular Rate, Rhythm, Normal Peripheral Pulses Gastrointestinal: Normal Bowel Sounds, Non Tender, Soft Extremity: Normal Capillary Refill, Normal Inspection Neurologic/Psychiatric: Alert, Oriented x3 Skin: Normal Color, Warm/Dry Progress/Results/Core Measures Results/Orders Lab Results Laboratory Tests Test 04/20/20 12:22 Range/Units White Blood Count 7.2 4.3-11.0 10^3/uL Red Blood Count 4.77 3.80-5.11 10^6/uL Hemoglobin 14.1 11.5-16.0 g/dL Hematocrit 41 35-52 % Mean Corpuscular Volume 86 80-99 fL Mean Corpuscular Hemoglobin 30 25-34 pg Mean Corpuscular Hemoglobin Concent 35 32-36 g/dL Red Cell Distribution Width 12.0 10.0-14.5 % Platelet Count 287 130-400 10^3/uL Mean Platelet Volume 9.9 9.0-12.2 fL Immature Granulocyte % (Auto) 0 % Neutrophils (%) (Auto) 66 42-75 % Lymphocytes (%) (Auto) 21 12-44 % Monocytes (%) (Auto) 10 0-12 % Eosinophils (%) (Auto) 3 0-10 % Basophils (%) (Auto) 0 0-10 % Neutrophils # (Auto) 4.7 1.8-7.8 10^3/uL Lymphocytes # (Auto) 1.5 1.0-4.0 10^3/uL Monocytes # (Auto) 0.7 0.0-1.0 10^3/uL Eosinophils # (Auto) 0.2 0.0-0.3 10^3/uL Basophils # (Auto) 0.0 0.0-0.1 10^3/uL Immature Granulocyte # (Auto) 0.0 0.0-0.1 10^3/uL Prothrombin Time 13.0 12.2-14.7 SEC INR Comment 0.9 0.8-1.4 Activated Partial Thromboplast Time 34 24-35 SEC Sodium Level 140 135-145 MMOL/L Potassium Level 4.2 3.6-5.0 MMOL/L Chloride Level 107 98-107 MMOL/L Carbon Dioxide Level 22 21-32 MMOL/L Anion Gap 11 5-14 MMOL/L Blood Urea Nitrogen 15 7-18 MG/DL Creatinine 0.78 0.60-1.30 MG/DL Estimat Glomerular Filtration Rate > 60 BUN/Creatinine Ratio 19 Glucose Level 115 H 70-105 MG/DL Calcium Level 8.8 8.5-10.1 MG/DL Corrected Calcium 8.9 8.5-10.1 MG/DL Magnesium Level 2.1 1.6-2.4 MG/DL Total Bilirubin 0.3 0.1-1.0 MG/DL Aspartate Amino Transf (AST/SGOT) 15 5-34 U/L Alanine Aminotransferase (ALT/SGPT) 17 0-55 U/L Alkaline Phosphatase 82 40-136 U/L Myoglobin 74.6 10.0-92.0 NG/ML Troponin I < 0.028 <0.028 NG/ML B-Type Natriuretic Peptide 97.1 <100.0 PG/ML Total Protein 6.9 6.4-8.2 GM/DL Albumin 3.9 3.2-4.5 GM/DL My Orders Orders - LUIS SAHA APRN Cbc With Automated Diff (04/20/20 12:10) Magnesium (04/20/20 12:10) Chest 1 View, Ap/Pa Only (04/20/20 12:10) Ekg Tracing (04/20/20 12:10) Comprehensive Metabolic Panel (04/20/20 12:10) Myoglobin Serum (04/20/20 12:10) Protime With Inr (04/20/20 12:10) Partial Thromboplastin Time (04/20/20 12:10) O2 (04/20/20 12:10) Monitor-Rhythm Ecg Trace Only (04/20/20 12:10) Lipid Panel (04/21/20 06:00) Ed Iv/Invasive Line Start (04/20/20 12:10) BNP (04/20/20 12:10) Troponin I (04/20/20 12:10) Vital Signs/I&O 04/20/20 12:00 Temp 35.7 Pulse 62 Resp 18 B/P (MAP) 131/84 (100) Pulse Ox 97 O2 Delivery Room Air Departure Communication (Admissions) 1315-states that she is overall feeling much better, whether this is coincidental or related to the nitroglycerin paste application is unclear. Her symptoms are similar to her anginal symptoms and Andrew. Will admit observation to hospitalist and consult to cardiology. Impression Primary Impression: CAD (coronary artery disease) Additional Impression: Chest pain Disposition: ADMITTED INPATIENT Condition: Stable Admissions Decision to Admit Reason: Admit from ER (General) Decision to Admit/Date: Apr 20, 2020 Time/Decision to Admit Time: 13:16 Departure-Patient Inst. Referrals: NO,LOCAL PHYSICIAN (PCP/Family) Primary Care Physician LUIS SAHA APRN Apr 20, 2020 12:14
[2020-04-20 12:33] LABS: BASOPHILS % (AUTO) 0 % (0-10); EOSINOPHILS # (AUTO) 0.2 10^3/uL (0.0-0.3); EOSINOPHILS % (AUTO) 3 % (0-10); HEMATOCRIT 41 % (35-52); HEMOGLOBIN 14.1 g/dL (11.5-16.0); LYMPHOCYTES # (AUTO) 1.5 10^3/uL (1.0-4.0); LYMPHOCYTES % (AUTO) 21 % (12-44); MEAN CORPUSCULAR HEMOGLOBIN 30 pg (25-34); MEAN CORPUSCULAR HGB CONC 35 g/dL (32-36); MEAN CORPUSCULAR VOLUME 86 fL (80-99); MEAN PLATELET VOLUME 9.9 fL (9.0-12.2); MONOCYTES # (AUTO) 0.7 10^3/uL (0.0-1.0); MONOCYTES % (AUTO) 10 % (0-12); NEUTROPHILS # (AUTO) 4.7 10^3/uL (1.8-7.8); NEUTROPHILS % (AUTO) 66 % (42-75); PLATELET COUNT 287 10^3/uL (130-400); WHITE BLOOD COUNT 7.2 10^3/uL (4.3-11.0)
--- NOTE | 2020-04-20 12:36 | Diagnostic Imaging Report ---
INDICATION: Chest pain AP view of the chest is obtained with comparison made to study of 03/01/2020. FINDINGS: Heart size and pulmonary vascularity are within normal limits, and the lungs are clear, bilaterally. IMPRESSION: Unremarkable chest. Dictated by: Dictated on workstation # [id number]
[2020-04-20 12:37] LABS: ALBUMIN 3.9 GM/DL (3.2-4.5)
[2020-04-20 12:38] LABS: CHLORIDE 107 MMOL/L (98-107); POTASSIUM 4.2 MMOL/L (3.6-5.0); SODIUM 140 MMOL/L (135-145)
[2020-04-20 12:39] LABS: CALCIUM 8.8 MG/DL (8.5-10.1)
[2020-04-20 12:40] LABS: GLUCOSE 115 MG/DL (70-105); TOTAL PROTEIN 6.9 GM/DL (6.4-8.2)
[2020-04-20 12:41] LABS: CARBON DIOXIDE 22 MMOL/L (21-32)
[2020-04-20 12:42] LABS: BILIRUBIN,TOTAL 0.3 MG/DL (0.1-1.0); INR 0.9 (0.8-1.4)
[2020-04-20 12:43] LABS: ALKALINE PHOSPHATASE 82 U/L (40-136)
[2020-04-20 12:44] LABS: CREATININE SERUM 0.78 MG/DL (0.60-1.30); GFR ESTIMATED > 60
[2020-04-20 12:45] LABS: BUN/CREATININE RATIO 19
[2020-04-20 12:46] LABS: MAGNESIUM 2.1 MG/DL (1.6-2.4)
[2020-04-20 12:47] LABS: ALANINE AMINOTRANSFERASE 17 U/L (0-55)
[2020-04-20] MEDS ORDERED: LACTATED RINGERS 1,000 ML IV ONE (14:14)
[2020-04-20 14:30] VITALS: BP 141/83
[2020-04-20] MEDS ORDERED: CATHETER FLUSH 10 ML SYR IV PRN (14:45)
[2020-04-20] MEDS: LACTATED RINGERS 1,000 ML IV SCH (15:12)
--- NOTE | 2020-04-20 15:45 | Consultation-Cardiology ---
HPI-Cardiology Cardiology Consultation: Date of Consultation 04/20/20 Time Seen by a Provider: 15:50 Date of Admission 04-20-20 Attending Physician Dagmar Frederick MD Admitting Physician No,Local Physician Consulting Physician Mary Vora MD HPI: Chief Complaint: Chest pain Ms. Garcia is a 54 yr old female admitted to 510 from the ED with c/o CP which she states is exactly like the pain she had prior to her last coronary intervention. She reports mid-sternal chest pain, pressure which radiated through to her back, up her neck and into both arms. She describes it as a heavy pressure which lasted for several hours and gradually improved. She states it did not change with activity. She reports it woke her up from sleep around 11 p.m last night, then again at 5 this morning. She denies any SOB, palpitations, syncope or near syncope. She reports the episode of chest pain this afternoon was a heavy, crushing pain which persisted for greater than 15 minutes and did not resolve until EMS applied nitro-paste. Then the pain gradually resolved and has not returned. She denies any LE swelling. She reports she has been taking 325mg ASA BID (for arthritis per guidance of her pharmacist) along with her Plavix. She reports he has been taking Mylanta daily to prevent heartburn. She states she has not missed any doses of her medications. Review of Systems-Cardiology Review of Systems Constitutional: No chills, No fever; malaise Eyes: No vision change Ears/Nose/Throat: No epistaxis, No nasal drainage Respiratory: As described under HPI Cardiovascular: As described under HPI Gastrointestinal: No constipation, No diarrhea, No nausea Genitourinary: No dysuria, No hematuria Musculoskeletal: joint pain (chronic) Skin: No rash on exposed areas, No ulcerations on exposed areas Psychiatric/Neurological: No anxiety, No depression, No seizure, No focal weakness, No syncope Hematologic: No bleeding abnormalities JQW-Odiajg-Gsltpr Hx Patient Social History Smoking Status: Never a Smoker Past Medical History PMH As described under Assessment. Family Medical History Family Medical History: Family h/o father having CAD sisi his 50's. Reports brothers x 2 having CAD and ID's in thier 40's. Family History: Alcoholism G8 BROTHER, Onset:15's - 20 Arthritis 19 MOTHER, Onset:Adolescence G8 BROTHER, Onset:Adolescence G8 SISTER, Onset:25's - 30 Asthma G8 BROTHER Cataracts 19 FATHER, Onset:60 years & older Deafness or hearing loss 19 FATHER Dementia 19 FATHER Diabetes mellitus 19 MOTHER G8 BROTHER Hypertension 19 FATHER G8 BROTHER Myocardial infarction 19 FATHER, Onset:60 years & older G8 BROTHER, Onset:40's - 50 Psychosocial problem G8 BROTHER, Onset:25's - 30 Severe allergy 19 FATHER, Onset: 19 MOTHER, Onset:Childhood Allergies and Home Medications Allergies Coded Allergies: nitrofurantoin (Verified Allergy, Severe, 03/02/20) shellfish derived (Verified Allergy, Severe, 03/02/20) atorvastatin (Verified Allergy, Intermediate, 03/02/20) pt states it makes her hurt all over/extreme pain Penicillins (Unverified Allergy, Mild, 06/09/08) aspirin (Unverified Allergy, Mild, convulsions, 03/02/20) codeine (Verified Allergy, Unknown, 03/02/20) Home Medications 5-Hydroxytryptophan 100 Mg Capsule, 200 MG PO HS, (Reported) TAKES 2 CAPS Aspirin 325 Mg Tablet.dr, 325 MG PO BID, (Reported) Clopidogrel Bisulfate 75 Mg Tablet, 75 MG PO HS, (Reported) Diclofenac Sodium 20 Gm Gel..gram., 1 APPLIC TP PRN PRN for PAIN-BREAKTHROUGH, (Reported) Diphenhydramine HCl 25 Mg Capsule, 25 MG PO DAILY, (Reported) Diphenhydramine HCl 25 Mg Capsule, 75 MG PO HS, (Reported) TAKES 3 (25MG) CAPS Ferrous Sulfate 325 Mg Tablet, 325 MG PO DAILY, (Reported) Magnesium Oxide 250 Mg Tablet, 250 MG PO DAILY, (Reported) Metoprolol Succinate 50 Mg Tab.er.24h, 50 MG PO HS, (Reported) Pravastatin Sodium 20 Mg Tablet, 20 MG PO HS, (Reported) Vitamin B Complex 1 Each Tablet, 1 EACH PO DAILY, (Reported) Physical Exam-Cardiology Physical Exam Vital Signs/I&O 04/20/20 04/21/20 04/21/20 04/21/20 23:32 01:00 04:57 07:00 Temp 36.2 36.4 Pulse 65 70 61 67 Resp 16 16 B/P (MAP) 110/94 (99) 136/82 (100) Pulse Ox 99 97 O2 Delivery Room Air Room Air 04/21/20 04/21/20 08:08 08:55 Temp 36.3 Pulse 69 Resp 28 B/P (MAP) 131/89 (103) Pulse Ox 95 97 O2 Delivery Room Air Room Air 04/21/20 00:00 Intake Total 340 ml Balance 340 ml Capillary Refill : Less Than 3 Seconds Constitutional: AAO x 3, well-developed, well-nourished HEENT: PERRL, hearing is well preserved, oral hygience is good Neck: No carotid bruit; carotid pulses are 2 + bilaterally Respiratory: No accessory muscle use, No respiratory distress; chest expansion is symmetric, chest is bilaterally symmetric, lungs clear to auscultation Cardiovascular: regular rate-rhythm; No JVD; S1 and S2 Gastrointestinal: No tender; soft, round, audible bowel sounds Extremities: no lower extremity edema bilateral Neurologic/Psychiatric: grossly intact (moves all extremities) Skin: No rash on exposed areas, No ulcerations on exposed areas Data Review Labs Laboratory Tests 04/20/20 12:22: White Blood Count 7.2, Red Blood Count 4.77, Hemoglobin 14.1, Hematocrit 41, Mean Corpuscular Volume 86, Mean Corpuscular Hemoglobin 30, Mean Corpuscular Hemoglobin Concent 35, Red Cell Distribution Width 12.0, Platelet Count 287, Mean Platelet Volume 9.9, Immature Granulocyte % (Auto) 0, Neutrophils (%) (Auto) 66, Lymphocytes (%) (Auto) 21, Monocytes (%) (Auto) 10, Eosinophils (%) (Auto) 3, Basophils (%) (Auto) 0, Neutrophils # (Auto) 4.7, Lymphocytes # (Auto) 1.5, Monocytes # (Auto) 0.7, Eosinophils # (Auto) 0.2, Basophils # (Auto) 0.0, Immature Granulocyte # (Auto) 0.0, Prothrombin Time 13.0, INR Comment 0.9, Activated Partial Thromboplast Time 34, Sodium Level 140, Potassium Level 4.2, Chloride Level 107, Carbon Dioxide Level 22, Anion Gap 11, Blood Urea Nitrogen 15, Creatinine 0.78, Estimat Glomerular Filtration Rate > 60, BUN/Creatinine Ratio 19, Glucose Level 115H, Calcium Level 8.8, Corrected Calcium 8.9, Magnesium Level 2.1, Total Bilirubin 0.3, Aspartate Amino Transf (AST/SGOT) 15, Alanine Aminotransferase (ALT/SGPT) 17, Alkaline Phosphatase 82, Myoglobin 74.6, Troponin I < 0.028, B-Type Natriuretic Peptide 97.1, Total Protein 6.9, Albumin 3.9 04/20/20 18:05: Troponin I 1.264*H 04/21/20 00:20: White Blood Count 7.6, Red Blood Count 4.50, Hemoglobin 13.2, Hematocrit 38, Mean Corpuscular Volume 85, Mean Corpuscular Hemoglobin 29, Mean Corpuscular Hemoglobin Concent 35, Red Cell Distribution Width 12.0, Platelet Count 244, Mean Platelet Volume 10.0, Prothrombin Time 13.2, INR Comment 1.0, Activated Partial Thromboplast Time 32, Sodium Level 137, Potassium Level 3.8, Chloride Level 106, Carbon Dioxide Level 22, Anion Gap 9, Blood Urea Nitrogen 12, Creatinine 0.69, Estimat Glomerular Filtration Rate > 60, BUN/Creatinine Ratio 17, Glucose Level 98, Calcium Level 8.3L, Troponin I 1.078*H, Triglycerides Level 225H, Cholesterol Level 150, LDL Cholesterol Direct 89, VLDL Cholesterol 45H, HDL Cholesterol 28L Radiology NAME: LUCILA GARCIA [facility] REC#: [id number] PT STATUS: ADM IN : 1965 PHYSICIAN: LUIS SAHA APRN ADMIT DATE: 04/20/20/[facility] Signed Date of Exam:04/20/20 CHEST 1 VIEW, AP/PA ONLY INDICATION: Chest pain AP view of the chest is obtained with comparison made to study of 03/01/2020. FINDINGS: Heart size and pulmonary vascularity are within normal limits, and the lungs are clear, bilaterally. IMPRESSION: Unremarkable chest. Dictated by: Dictated on workstation # [id number] Dict: 04/20/20 1235 Trans: 04/20/20 1535 [facility] [id number] Interpreted by: MARLYS FLANNERY MD Electronically signed by: MARLYS FLANNERY MD 04/20/20 1535 ECG Impression ECG Initial ECG Rhythm: Normal Sinus A/P-Cardiology Assessment/Admission Diagnosis Chest pain with features of angina Card cath and PCI on 03/02/20: Coronary artery disease primarily consisting of 95% ostial stenosis of a first diagonal of the left anterior descending to which successful balloon angioplasty was carried out with reduced the stenosis to less than 30%. Elsewhere, the patient exhibits mild to moderate diffuse coronary plaques. Normal global left ventricular systolic function with an ejection fraction of approximately 60%. Elevated left ventricular end-diastolic pressure. Multiple groin bleed post-cath on 03/02/20 HTN Scleroderma H/O rheumatic fever as a child Celiac dz HLD H/O occular stroke Reported allergy to ASA (however, she has been taking ASA 325mg BID per her report without difficulty) - reports h/o convulsions Reported shellfish allergy H/O chronic joint pain d/t arthritis Family h/o premature CAD (brothers x2 and father) Discussion and Recomendations Chest pain with features of angina for which she herself is concerned it is d/t a coronary artery blockage. Advise cardiac cath. We have discussed the pro cedure, risks, benefits and potential complications of cardiac cath with possible PCI. She provides informed consent. We will continue ASA 81mg and Plavix 75mg We advise against taking more than 81mg ASA d/t possible GI upset Will add PPI and Mylanta Continue BB and statin Monitor lab Replace electrolytes as indicated Further recs will be based on her hospital course We would like to thank medical services for this consult Clinical Quality Measures AMI/AHF: ASA po Prior to arrival: Yes (AT HOME ) GERARD NOLASCO Apr 20, 2020 15:45
[2020-04-20 16:00] VITALS: BP 141/84
[2020-04-20] MEDS ORDERED: DIPH25CA48 PO (16:00)
[2020-04-20] MEDS ORDERED: METO50TA7 PO (16:00)
[2020-04-20] MEDS ORDERED: PRAV20TA3 PO (16:00)
[2020-04-20] MEDS ORDERED: ASPI325T32 PO (16:00)
[2020-04-20] MEDS ORDERED: CLOP75TA69 PO (16:00)
[2020-04-20] MEDS ORDERED: PANTOPRAZOLE 40 MG (PROTONIX) TAB PO ONE (16:30)
[2020-04-20] MEDS ORDERED: ACETAMINOPHEN 500 MG TAB (TYLENOL) PO PRN (16:30)
[2020-04-20] MEDS: ANTACID SUSP 30 ML UDC (MYLANTA) PO SCH ×2 (16:43→19:40)
[2020-04-20] MEDS: NITROGLYCERIN 2% OINT 1 GM UNIT DOSE PACKET TOP SCH ×2 (16:44→23:33)
--- NOTE | 2020-04-20 17:52 | Consultation-Cardiology ---
HPI-Cardiology Cardiology Consultation: Date of Consultation 04/20/20 Time Seen by a Provider: 17:15 Date of Admission Attending Physician Dagmar Frederick MD Admitting Physician No,Local Physician Consulting Physician SERENITY NINO MD, MA, FACP, FACC, FSCAI, CCDS HPI: Chief Complaint: CC: Chest discomfort HPI Ms. Garcia is a 54 yr old female admitted to [facility] from the ED with c/o CP which she states is exactly like the pain she had prior to her last coronary intervention. She reports mid-sternal chest pain, pressure which radiated through to her back, up her neck and into both arms. She describes it as a heavy pressure which lasted for several hours and gradually improved. She states it did not change with activity. She reports it woke her up from sleep around 11 p.m last night, then again at 5 this morning. She denies any SOB, palpitations, syncope or near syncope. She reports the episode of chest pain this afternoon was a heavy, crushing pain which persisted for greater than 15 minutes and did not resolve until EMS applied nitro-paste. Then the pain gradually resolved and has not returned. She denies any LE swelling. She reports she has been taking 325mg ASA BID (for arthritis per guidance of her pharmacist) along with her Plavix. She reports he has been taking Mylanta daily to prevent heartburn. She states she has not missed any doses of her medications. Review of Systems-Cardiology Review of Systems Constitutional: No chills, No fever; malaise Eyes: No vision change Ears/Nose/Throat: No epistaxis, No nasal drainage Respiratory: As described under HPI Cardiovascular: As described under HPI Gastrointestinal: No constipation, No diarrhea, No nausea Genitourinary: No dysuria, No hematuria Musculoskeletal: joint pain (chronic) Skin: No rash on exposed areas, No ulcerations on exposed areas Psychiatric/Neurological: No anxiety, No depression, No seizure, No focal weakness, No syncope Hematologic: No bleeding abnormalities ZLC-Twikoa-Jicdtm Hx Patient Social History Smoking Status: Never a Smoker Past Medical History PMH As described under Assessment. Family Medical History Family Medical History: Family h/o father having CAD sisi his 50's. Reports brothers x 2 having CAD and ME's in thier 40's. Family History: Alcoholism G8 BROTHER, Onset:15's - 20 Arthritis 19 MOTHER, Onset:Adolescence G8 BROTHER, Onset:Adolescence G8 SISTER, Onset:25's - 30 Asthma G8 BROTHER Cataracts 19 FATHER, Onset:60 years & older Deafness or hearing loss 19 FATHER Dementia 19 FATHER Diabetes mellitus 19 MOTHER G8 BROTHER Hypertension 19 FATHER G8 BROTHER Myocardial infarction 19 FATHER, Onset:60 years & older G8 BROTHER, Onset:40's - 50 Psychosocial problem G8 BROTHER, Onset:25's - 30 Severe allergy 19 FATHER, Onset: 19 MOTHER, Onset:Childhood Allergies and Home Medications Allergies Coded Allergies: nitrofurantoin (Verified Allergy, Severe, 03/02/20) shellfish derived (Verified Allergy, Severe, 03/02/20) atorvastatin (Verified Allergy, Intermediate, 03/02/20) pt states it makes her hurt all over/extreme pain Penicillins (Unverified Allergy, Mild, 06/09/08) aspirin (Unverified Allergy, Mild, convulsions, 03/02/20) codeine (Verified Allergy, Unknown, 03/02/20) Home Medications 5-Hydroxytryptophan 100 Mg Capsule, 200 MG PO HS, (Reported) TAKES 2 CAPS Aspirin 325 Mg Tablet.dr, 325 MG PO BID, (Reported) Clopidogrel Bisulfate 75 Mg Tablet, 75 MG PO HS, (Reported) Diclofenac Sodium 20 Gm Gel..gram., 1 APPLIC TP PRN PRN for PAIN-BREAKTHROUGH, (Reported) Diphenhydramine HCl 25 Mg Capsule, 25 MG PO DAILY, (Reported) Diphenhydramine HCl 25 Mg Capsule, 75 MG PO HS, (Reported) TAKES 3 (25MG) CAPS Ferrous Sulfate 325 Mg Tablet, 325 MG PO DAILY, (Reported) Magnesium Oxide 250 Mg Tablet, 250 MG PO DAILY, (Reported) Metoprolol Succinate 50 Mg Tab.er.24h, 50 MG PO HS, (Reported) Pravastatin Sodium 20 Mg Tablet, 20 MG PO HS, (Reported) Vitamin B Complex 1 Each Tablet, 1 EACH PO DAILY, (Reported) Patient Home Medication List Home Medication List Reviewed: Yes Physical Exam-Cardiology Physical Exam Vital Signs/I&O 04/20/20 04/20/20 04/20/20 04/20/20 12:00 13:59 14:20 14:51 Temp 35.7 Pulse 62 61 62 Resp 18 18 B/P (MAP) 131/84 (100) 111/56 Pulse Ox 97 96 100 O2 Delivery Room Air Room Air Room Air 04/20/20 17:36 Pulse Ox 100 O2 Delivery Room Air Capillary Refill : Less Than 3 Seconds Constitutional: AAO x 3, well-developed, well-nourished HEENT: PERRL, hearing is well preserved, oral hygience is good Neck: No carotid bruit; carotid pulses are 2 + bilaterally Respiratory: No accessory muscle use, No respiratory distress; chest expansion is symmetric, chest is bilaterally symmetric, lungs clear to auscultation Cardiovascular: regular rate-rhythm; No JVD; S1 and S2 Gastrointestinal: No tender; soft, round, audible bowel sounds Extremities: no lower extremity edema bilateral Neurologic/Psychiatric: grossly intact (moves all extremities) Skin: No rash on exposed areas, No ulcerations on exposed areas Data Review Labs Laboratory Tests 04/20/20 12:22: White Blood Count 7.2, Red Blood Count 4.77, Hemoglobin 14.1, Hematocrit 41, Mean Corpuscular Volume 86, Mean Corpuscular Hemoglobin 30, Mean Corpuscular Hemoglobin Concent 35, Red Cell Distribution Width 12.0, Platelet Count 287, Mean Platelet Volume 9.9, Immature Granulocyte % (Auto) 0, Neutrophils (%) (Auto) 66, Lymphocytes (%) (Auto) 21, Monocytes (%) (Auto) 10, Eosinophils (%) (Auto) 3, Basophils (%) (Auto) 0, Neutrophils # (Auto) 4.7, Lymphocytes # (Auto) 1.5, Monocytes # (Auto) 0.7, Eosinophils # (Auto) 0.2, Basophils # (Auto) 0.0, Immature Granulocyte # (Auto) 0.0, Prothrombin Time 13.0, INR Comment 0.9, Activated Partial Thromboplast Time 34, Sodium Level 140, Potassium Level 4.2, Chloride Level 107, Carbon Dioxide Level 22, Anion Gap 11, Blood Urea Nitrogen 15, Creatinine 0.78, Estimat Glomerular Filtration Rate > 60, BUN/Creatinine Ratio 19, Glucose Level 115H, Calcium Level 8.8, Corrected Calcium 8.9, Magnesium Level 2.1, Total Bilirubin 0.3, Aspartate Amino Transf (AST/SGOT) 15, Alanine Aminotransferase (ALT/SGPT) 17, Alkaline Phosphatase 82, Myoglobin 74.6, Troponin I < 0.028, B-Type Natriuretic Peptide 97.1, Total Protein 6.9, Albumin 3.9 Laboratory Tests 04/20/20 12:22 A/P-Cardiology Assessment/Admission Diagnosis Chest pain with features of angina Card cath and PCI on 03/02/20: Coronary artery disease primarily consisting of 95% ostial stenosis of a first diagonal of the left anterior descending to which successful balloon angioplasty was carried out with reduced the stenosis to less than 30%. Elsewhere, the patient exhibits mild to moderate diffuse coronary plaques. Normal global left ventricular systolic function with an ejection fraction of approximately 60%. Elevated left ventricular end-diastolic pressure. Multiple groin bleed post-cath on 03/02/20 HTN Scleroderma H/O rheumatic fever as a child Celiac dz HLD H/O occular stroke Reported allergy to ASA (however, she has been taking ASA 325mg BID per her report without difficulty) - reports h/o convulsions Reported shellfish allergy H/O chronic joint pain d/t arthritis Family h/o premature CAD (brothers x2 and father) Discussion and Recomendations Chest pain with features of angina for which she herself is concerned it is d/t a coronary artery blockage. Advise cardiac cath. We have discussed the procedure, risks, benefits and potential complications of cardiac cath with possible PCI. She provides informed consent. We will continue ASA 81mg and Plavix 75mg We advise against taking more than 81mg ASA d/t possible GI upset Will add PPI and Mylanta Continue BB and statin Monitor lab Replace electrolytes as indicated Further recs will be based on her hospital course We would like to thank medical services for this consult Clinical Quality Measures AMI/AHF: ASA po Prior to arrival: Yes (AT HOME ) SERENITY NINO MD FACP FAC CCDS Apr 20, 2020 17:52
[2020-04-20 20:00] VITALS: BP 118/65
[2020-04-20 23:32] VITALS: BP 110/94
[2020-04-21] VITALS (20 sets, daily range): BP systolic 114–136; BP diastolic 62–91
[2020-04-21 00:38] LABS: HEMOGLOBIN 13.2 g/dL (11.5-16.0); WHITE BLOOD COUNT 7.6 10^3/uL (4.3-11.0)
[2020-04-21 00:44] LABS: CHLORIDE 106 MMOL/L (98-107); POTASSIUM 3.8 MMOL/L (3.6-5.0); PROTHROMBIN TIME PATIENT 13.2 SEC (12.2-14.7); SODIUM 137 MMOL/L (135-145)
[2020-04-21 00:45] LABS: CALCIUM 8.3 MG/DL (8.5-10.1)
[2020-04-21 00:46] LABS: GLUCOSE 98 MG/DL (70-105); TRIGLYCERIDES 225 MG/DL (<150); VLDL CHOLESTEROL 45 MG/DL (5-40)
[2020-04-21 00:47] LABS: CARBON DIOXIDE 22 MMOL/L (21-32)
[2020-04-21 00:49] LABS: CREATININE SERUM 0.69 MG/DL (0.60-1.30); GFR ESTIMATED > 60
[2020-04-21 00:51] LABS: BUN/CREATININE RATIO 17; CHOLESTEROL 150 MG/DL (< 200)
[2020-04-21 00:52] LABS: HDL CHOLESTEROL 28 MG/DL (40-60)
[2020-04-21] MEDS: LACTATED RINGERS 1,000 ML IV SCH (02:15)
[2020-04-21] MEDS: NS IV 1000 ML 1,000 ML IV SCH ×3 (05:48→16:34)
[2020-04-21] MEDS: NITROGLYCERIN 2% OINT 1 GM UNIT DOSE PACKET TOP SCH ×4 (06:02→23:59)
[2020-04-21] MEDS: PANTOPRAZOLE 40 MG (PROTONIX) TAB PO SCH (07:41)
[2020-04-21] MEDS: ANTACID SUSP 30 ML UDC (MYLANTA) PO SCH ×4 (07:41→19:41)
[2020-04-21] MEDS: ASPIRIN 81 MG CHEW (CHILDREN'S ASA) PO SCH (07:41)
[2020-04-21] MEDS: meTOproloL SUCCINATE 50 MG (TOPROL XL) TAB PO SCH (07:42)
[2020-04-21] MEDS: CLOPIDOGREL 75 MG (PLAVIX) TABLET PO SCH (07:42)
[2020-04-21] MEDS ORDERED: HEParin (CATH LAB) 2,000 ML IV ONE (08:10)
[2020-04-21] MEDS ORDERED: LIDOCAINE 1% INJ 20 ML 20 ML VIAL ONE (08:10)
[2020-04-21] MEDS ORDERED: fentaNYL INJECTION 100 MCG/2 ML AMP ONE ×2 (08:12→11:45)
[2020-04-21] MEDS ORDERED: MIDAZOLAM 5 MG/5 ML (VERSED) VIAL ONE (08:12)
[2020-04-21] MEDS ORDERED: methylPREDNISolone 125 MG (Solu-MEDROL) VIAL ONE (08:12)
[2020-04-21] MEDS ORDERED: diphenhydrAMINE 50 MG/ML INJ (BENADRYL) ONE (08:12)
[2020-04-21] MEDS ORDERED: EPTIFIBATIDE BOLUS 20 ML IV ONE (09:06)
[2020-04-21] MEDS ORDERED: HEParin 1000 UNIT/ML (10ML VIAL) FOR BOLUS ONE (09:06)
[2020-04-21] MEDS ORDERED: NITRO DRIP 25000 MCG/D5W 250 ML IV ONE (09:06)
[2020-04-21] MEDS ORDERED: ASPIRIN 81 MG CHEW (CHILDREN'S ASA) ONE (09:40)
[2020-04-21] MEDS ORDERED: CLOPIDOGREL 75 MG (PLAVIX) TABLET ONE (09:40)
--- NOTE | 2020-04-21 09:50 | Progress Note - Cardiology ---
Cardiology SOAP Progress Note Subjective: Has had intermittent chest discomfort (prior to PCI today) No palp or syncope or shortness of breath at rest No n/v/d No focal weakness Some gen weakness and malaise Objective: I&O/Vital Signs 04/20/20 04/21/20 04/21/20 04/21/20 23:32 01:00 04:57 07:00 Temp 36.2 36.4 Pulse 65 70 61 67 Resp 16 16 B/P (MAP) 110/94 (99) 136/82 (100) Pulse Ox 99 97 O2 Delivery Room Air Room Air 04/21/20 04/21/20 08:08 08:55 Temp 36.3 Pulse 69 Resp 28 B/P (MAP) 131/89 (103) Pulse Ox 95 97 O2 Delivery Room Air Room Air 04/21/20 00:00 Intake Total 340 ml Balance 340 ml Constitutional: AAO x 3, well-developed, well-nourished Respiratory: No accessory muscle use, No respiratory distress; chest expansion is symmetric, chest is bilaterally symmetric, lungs clear to auscultation Cardiovascular: regular rate-rhythm; No JVD; S1 and S2 Gastrointestional: No tender; soft, round, audible bowel sounds Extremities: no lower extremity edema bilateral Neurologic/Psychiatric: grossly intact (moves all extremities) Skin: No rash on exposed areas, No ulcerations on exposed areas Results/Procedures: Labs Laboratory Tests 04/20/20 12:22: White Blood Count 7.2, Red Blood Count 4.77, Hemoglobin 14.1, Hematocrit 41, Mean Corpuscular Volume 86, Mean Corpuscular Hemoglobin 30, Mean Corpuscular Hemoglobin Concent 35, Red Cell Distribution Width 12.0, Platelet Count 287, Mean Platelet Volume 9.9, Immature Granulocyte % (Auto) 0, Neutrophils (%) ( Auto) 66, Lymphocytes (%) (Auto) 21, Monocytes (%) (Auto) 10, Eosinophils (%) (Auto) 3, Basophils (%) (Auto) 0, Neutrophils # (Auto) 4.7, Lymphocytes # (Auto) 1.5, Monocytes # (Auto) 0.7, Eosinophils # (Auto) 0.2, Basophils # (Auto) 0.0, Immature Granulocyte # (Auto) 0.0, Prothrombin Time 13.0, INR Comment 0.9, Activated Partial Thromboplast Time 34, Sodium Level 140, Potassium Level 4.2, Chloride Level 107, Carbon Dioxide Level 22, Anion Gap 11, Blood Urea Nitrogen 15, Creatinine 0.78, Estimat Glomerular Filtration Rate > 60, BUN/Creatinine Ratio 19, Glucose Level 115H, Calcium Level 8.8, Corrected Calcium 8.9, Magnesium Level 2.1, Total Bilirubin 0.3, Aspartate Amino Transf (AST/SGOT) 15, Alanine Aminotransferase (ALT/SGPT) 17, Alkaline Phosphatase 82, Myoglobin 74.6, Troponin I < 0.028, B-Type Natriuretic Peptide 97.1, Total Protein 6.9, Albumin 3.9 04/20/20 18:05: Troponin I 1.264*H 04/21/20 00:20: White Blood Count 7.6, Red Blood Count 4.50, Hemoglobin 13.2, Hematocrit 38, Mean Corpuscular Volume 85, Mean Corpuscular Hemoglobin 29, Mean Corpuscular Hemoglobin Concent 35, Red Cell Distribution Width 12.0, Platelet Count 244, Mean Platelet Volume 10.0, Prothrombin Time 13.2, INR Comment 1.0, Activated Partial Thromboplast Time 32, Sodium Level 137, Potassium Level 3.8, Chloride Level 106, Carbon Dioxide Level 22, Anion Gap 9, Blood Urea Nitrogen 12, Creatinine 0.69, Estimat Glomerular Filtration Rate > 60, BUN/Creatinine Ratio 17, Glucose Level 98, Calcium Level 8.3L, Troponin I 1.078*H, Triglycerides Level 225H, Cholesterol Level 150, LDL Cholesterol Direct 89, VLDL Cholesterol 45H, HDL Cholesterol 28L A/P: Assessment: Ac NSTEMI on 04/20/20, treated with PCI (see below) CAD - Card cath and PCI on 03/02/20: Coronary artery disease primarily consisting of 95% ostial stenosis of the left anterior descending to just past origin of large D1 to which successful balloon angioplasty was carried out with reduced the stenosis to less than 30%. Mild plaque in other cors. RCA dominant - Card cath and PCI on 04/21/20: PTCA for 95% restenosis as site of PTCA in mid LAD, just past D1, reducing the lesion to less than 10% and with normal antegrade flow, LVEDP 12 mmHg, LVEF 50-55% HTN Scleroderma, by history H/O rheumatic fever as a child Celiac dz HLD H/o occular stroke Reported allergy to ASA (however, she has been taking ASA, per her report, without difficulty) - reports h/o convulsions Reported shellfish allergy H/O chronic joint pain d/t arthritis Family h/o premature CAD (brothers x2 and father) Plan: PCI to LAD performed (balloon angioplasty done because location of lesion did not appear suitable for stenting) and good results obtained Continue DAPT and BB and statin Monitor lab Replace electrolytes as indicated Dr Smith covering cardiology over the weekend Clinical Quality Measures AMI/AHF: ASA po Prior to arrival: Yes (AT HOME ) SERENITY NINO MD FACP FAC CCDS Apr 21, 2020 09:50
[2020-04-21] MEDS ORDERED: PATIENT MAY USE OWN MEDS, ALL PO SCH (10:15)
[2020-04-21] MEDS ORDERED: ATROPINE INJECTION 1 MG/10 ML SYR (ABBOTT) ONE (11:41)
--- NOTE | 2020-04-21 13:25 | CARDIAC CATHETERIZATION ---
DATE OF SERVICE: 04/21/2020 CARDIAC CATHETERIZATION AND CORONARY INTERVENTION REPORT The patient is a 54-year-old lady, who was hospitalized in 02/2020 with acute coronary syndrome and underwent balloon angioplasty of the left anterior descending just past the large diagonal. She returns with unstable angina and non-ST elevation myocardial infarction and symptoms are similar to what she had in 02/2020. Cardiac catheterization was carried out after having obtained an informed consent for cardiac catheterization and possible ad hoc coronary intervention. DESCRIPTION OF PROCEDURE: She was brought to the cardiac catheterization laboratory in a fasting state. Right groin was prepared and draped in the usual sterile fashion. A 1% lidocaine was used for local anesthesia. Modified Seldinger technique was used to advance a 6-Thai sheath into the right femoral artery. A 5-Thai JL4 catheter was used for left coronary angiography. Subsequently, percutaneous intervention was carried out to the left anterior descending artery, which is described below. Following completion of the percutaneous intervention, we used a 5-Thai pigtail catheter to carry out left heart catheterization, left ventricular angiography. The pigtail was pulled back and removed. The sheath was sutured in place for manual sheath removal on the floor. She tolerated the procedure well. PERCUTANEOUS INTERVENTION TO THE LEFT ANTERIOR DESCENDING: The left anterior descending artery was exhibiting a 95% stenosis just past the large first diagonal. This is a complex lesion, which extends up to the ostium of the first diagonal. We used a 6-Thai JL4 guide catheter to engage the coronary artery. We advanced a ChoICE floppy wire across the lesion and placed it in the distal vessel. We carried out balloon angioplasty with [place] 2.25 x 20 mm balloon. Balloon inflations were carried out to 12 atmospheres. Subsequent angiography reveals no significant residual stenosis and flow throughout the vessel is normal. The diagonal branch was not compromised. The patient tolerated the procedure well. She received 6000 units of intravenous heparin during the procedure and also double bolus of Integrilin during the procedure. HEMODYNAMICS: Left ventricular end-diastolic pressure following coronary angiography was 12 mmHg. There was no significant pressure gradient on pullback across the aortic valve. LEFT VENTRICULAR ANGIOGRAPHY: Left ventricular angiography was carried out in the right anterior oblique projection. Global left ventricular systolic function appears to be well preserved. Left ventricular ejection fraction approximately 50% to 55%. CONCLUSIONS: 1. Coronary artery disease primarily consisting of 95% stenosis of the left anterior descending just past the large diagonal branch, to which successful balloon angioplasty was carried out for reduction of stenosis to less than 10%. The rest of the left coronary system has mild to moderate plaques. Right coronary artery was not selectively engaged but found to be patent on left ventricular angiography. 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 2. Normal left ventricular end-diastolic pressure. 3. Well preserved global left ventricular systolic function with ejection fraction of 50 to 55%. DISCUSSION AND RECOMMENDATIONS: Dual antiplatelet therapy is being continued. Beta kena and statin therapy is being continued. Risk factor modification has been reviewed. Job ID: [id number] DocumentID: [id number] Dictated Date: 04/21/2020 10:00:59 Dressage Judge Date: 04/21/2020 12:32:51 Dictated By: SERENITY NINO MD, MA, FACP, FACC,
--- NOTE | 2020-04-21 17:35 | History & Physical-Hospitalist ---
History of Present Illness HPI/Chief Complaint Anjelica Garcia is a 54 year old female with PMH HTN, HLD, CVA, obesity, scleroderma, Raynaud's, CAD, who presented with chest pain. The pain started around midnight and woke her up. She had pressure like midsternal chest pain with radiation to her neck and arms. She did not have diaphoresis, nausea, or shortness of breath. This was very similar to the symptoms she was having in January when she came in with chest pain and was found to have coronary artery disease and underwent ballooning of the LAD. Source: patient Exam Limitations: no limitations Date Seen 04/21/20 Time Seen by a Provider: 12:15 Attending Physician Carli Reich MD PCP No,Local Physician Referring Physician Date of Admission Apr 20, 2020 at 13:04 Home Medications & Allergies Home Medications Reviewed patient Home Medication Reconciliation performed by pharmacy medication reconciliations carpet cleaning technician and/or nursing. Patients Allergies have been reviewed. Allergies Allergies Coded Allergies nitrofurantoin (Verified Allergy, Severe, 03/02/20) shellfish derived (Verified Allergy, Severe, 03/02/20) atorvastatin (Verified Allergy, Intermediate, 03/02/20) pt states it makes her hurt all over/extreme pain Penicillins (Unverified Allergy, Mild, 06/09/08) aspirin (Unverified Allergy, Mild, convulsions, 03/02/20) codeine (Verified Allergy, Unknown, 03/02/20) Past Ackplib-Tzhqwy-Srvxqe Hx Past Med/Social Hx: Reviewed Nursing Past Med/Soc Hx Patient Social History Alcohol Use: Denies Use Recreational Drug Use: No Smoking Status: Never a Smoker Recent Foreign Travel: No Contact w/other who traveled: No Recent Hopitalizations: No Recent Infectious Disease Expo: No Seasonal Allergies Seasonal Allergies: Yes Past Medical History Surgeries: Gallbladder, Orthopedic Cardiac: High Cholesterol, Hypertension Neurological: 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 Menopausal Gastrointestinal: Gall Bladder Disease Musculoskeletal: Rheumatoid Arthritis Psychosocial: Anxiety, Depression Skin/Integumentary: Psoriasis History of Blood Disorders: No Family History Alcoholism G8 BROTHER, Onset:15's - 20 Arthritis 19 MOTHER, Onset:Adolescence G8 BROTHER, Onset:Adolescence G8 SISTER, Onset:25's - 30 Asthma G8 BROTHER Cataracts 19 FATHER, Onset:60 years & older Deafness or hearing loss 19 FATHER Dementia 19 FATHER Diabetes mellitus 19 MOTHER G8 BROTHER Hypertension 19 FATHER G8 BROTHER Myocardial infarction 19 FATHER, Onset:60 years & older G8 BROTHER, Onset:40's - 50 Psychosocial problem G8 BROTHER, Onset:25's - 30 Severe allergy 19 FATHER, Onset: 19 MOTHER, Onset:Childhood Review of Systems Constitutional: no symptoms reported EENTM: no symptoms reported Respiratory: no symptoms reported Cardiovascular: chest pain Gastrointestinal: no symptoms reported Genitourinary: no symptoms reported Musculoskeletal: no symptoms reported Skin: no symptoms reported Psychiatric/Neurological: No Symptoms Reported Physical Exam Physical Exam Vital Signs Vital Signs - First Documented 04/20/20 12:00 Temp 35.7 Pulse 62 Resp 18 B/P (MAP) 131/84 (100) Pulse Ox 97 O2 Delivery Room Air Capillary Refill : Less Than 3 Seconds Height, Weight, BMI Height: '" Weight: lbs. oz. kg; 39.84 BMI Method: General Appearance: No Apparent Distress, Obese HEENT: PERRL/EOMI, Pharynx Normal Neck: Normal Inspection, Supple Respiratory: Lungs Clear, Normal Breath Sounds, No Respiratory Distress Cardiovascular: Regular Rate, Rhythm, No Edema, No Murmur Gastrointestinal: Normal Bowel Sounds, Non Tender, Soft Extremity: Non Tender, No Pedal Edema, Other (right groin bleeding post-sheath removal with nurse holding pressure) Neurologic/Psychiatric: Alert, Oriented x3, No Motor/Sensory Deficits, Normal Mood/Affect Skin: Normal Color, Warm/Dry Results Results/Procedures Labs Laboratory Tests 04/20/20 12:22 04/21/20 00:20 Patient resulted labs reviewed. Imaging: Reviewed Imaging Report Assessment/Plan Admission Diagnosis NSTEMI Admission Status: Inpatient Order (span 2 midnights) Reason for Inpatient Admission: NSTEMI requiring coronary intervention Assessment and Plan NSTEMI CAD HTN HLD Obesity Troponin trended up EKG unremarkable Cardiology consulted, appreciate asistance Performed left heart catheterization revealing 95% LAD stenosis distal to first diagonal branch Balloon angioplasy perfomed Continue DAPT Continue Metoprolol Continue statin Lifestyle changes recommended Diagnosis/Problems Diagnosis/Problems (1) NSTEMI (non-ST elevation myocardial infarction) Status: Acute (2) CAD (coronary artery disease) Status: Acute (3) HTN (hypertension) Status: Chronic Qualifiers: Hypertension type: essential hypertension Qualified Codes: I10 - Essential (primary) hypertension (4) HLD (hyperlipidemia) Status: Chronic (5) Obesity Status: Chronic Clinical Quality Measures AMI/AHF: ASA po Prior to arrival: Yes (AT HOME ) CARLI REICH MD Apr 21, 2020 17:35
[2020-04-21] MEDS ORDERED: ROSUVASTATIN 20 MG (CRESTOR) TABLET PO SCH (21:00)
[2020-04-22] VITALS (17 sets, daily range): BP systolic 92–144; BP diastolic 46–105
[2020-04-22 03:28] LABS: HEMOGLOBIN 13.9 g/dL (11.5-16.0); WHITE BLOOD COUNT 18.2 10^3/uL (4.3-11.0)
[2020-04-22 03:37] LABS: CHLORIDE 108 MMOL/L (98-107); POTASSIUM 4.3 MMOL/L (3.6-5.0); SODIUM 137 MMOL/L (135-145)
[2020-04-22 03:38] LABS: CALCIUM 8.6 MG/DL (8.5-10.1)
[2020-04-22 03:39] LABS: GLUCOSE 131 MG/DL (70-105)
[2020-04-22 03:40] LABS: CARBON DIOXIDE 18 MMOL/L (21-32)
[2020-04-22 03:42] LABS: CREATININE SERUM 0.71 MG/DL (0.60-1.30); GFR ESTIMATED > 60; PHOSPHORUS 2.6 MG/DL (2.3-4.7)
[2020-04-22 03:43] LABS: BUN/CREATININE RATIO 20
[2020-04-22 03:45] LABS: MAGNESIUM 2.2 MG/DL (1.6-2.4)
[2020-04-22] MEDS: NS IV 1000 ML 1,000 ML IV SCH ×3 (05:33→16:45)
[2020-04-22] MEDS: NITROGLYCERIN 2% OINT 1 GM UNIT DOSE PACKET TOP SCH ×2 (05:37→12:13)
--- NOTE | 2020-04-22 07:28 | Diagnostic Imaging Report ---
EXAMINATION: Portable erect AP chest at 2:44 AM INDICATION: Chest pain FINDINGS: The heart size is within normal limits and stable when compared to 04/20/2020. The lungs remain clear. There is still no sign of failure, pneumonia or of a pleural effusion. The mediastinum is not widened. The osseous structures are intact. An orthopedic plate and screw fixation device is again seen overlying the lower cervical spine. IMPRESSION: Stable chest. There has been no adverse change since the prior exam. Dictated by: Dictated on workstation # [id number]
[2020-04-22] MEDS: CLOPIDOGREL 75 MG (PLAVIX) TABLET PO SCH (07:44)
[2020-04-22] MEDS: PANTOPRAZOLE 40 MG (PROTONIX) TAB PO SCH (07:44)
[2020-04-22] MEDS: ASPIRIN 81 MG CHEW (CHILDREN'S ASA) PO SCH (07:44)
[2020-04-22] MEDS: meTOproloL SUCCINATE 50 MG (TOPROL XL) TAB PO SCH (07:44)
[2020-04-22 07:58] LABS: BILIRUBIN,URINE NEGATIVE (NEGATIVE); CLARITY,URINE CLEAR; COLOR,URINE YELLOW; GLUCOSE, URINE (UA) NEGATIVE (NEGATIVE); KETONES,URINE NEGATIVE (NEGATIVE); LEUKOCYTE ESTERASE ,URINE NEGATIVE (NEGATIVE); NITRITE,URINE NEGATIVE (NEGATIVE); PH,URINE 6.5 (5-9); PROTEIN,URINE NEGATIVE (NEGATIVE)
[2020-04-22] MEDS: ANTACID SUSP 30 ML UDC (MYLANTA) PO SCH ×3 (08:01→16:45)
[2020-04-22 08:07] LABS: BACTERIA,URINE NEGATIVE /HPF; WBC,URINE RARE /HPF
[2020-04-22] MEDS ORDERED: ROSU40TA23 PO (09:00)
--- NOTE | 2020-04-22 10:27 | Discharge Summary ---
Discharge Summary Hospital Course Was the Problem List Reviewed?: Yes Problems/Dx: (1) NSTEMI (non-ST elevation myocardial infarction) Status: Acute (2) CAD (coronary artery disease) Status: Acute (3) HTN (hypertension) Status: Chronic Qualifiers: Qualified Codes: I10 - Essential (primary) hypertension (4) HLD (hyperlipidemia) Status: Chronic (5) Obesity Status: Chronic Hospital Course Date of Admission: Apr 20, 2020 at 13:04 Admission Diagnosis : Chest pain Family Physician/Provider: No,Local Physician Date of Discharge: 04/22/20 Discharge Diagnosis: NSTEMI Hospital Course: Anjelica Garcia is a 54-year-old female who presented with chest pain and was admitted with non-ST elevation [place]. Her EKG and troponin was initially normal but her troponin trended up. Cardiology was consulted and assisted with her care. She underwent a left heart catheterization which revealed and 95 percent stenosis of the LAD just distal to the first diagonal branch. A balloon angioplasty was performed due to the location of the stenosis. This was an area that has required balloon angioplasty just 2 months ago. She was continued on aspirin and Plavix. She was transitioned from pravastatin to rosuvastatin. She should follow-up with cardiology as scheduled. She should follow-up with her primary care physician. Her course was complicated by a leukocytosis on the day of discharge. This was thought to be due to a large dose of steroids given the prior day. A chest x-ray and urinalysis or normal. A procalcitonin was negative. She had no symptoms concerning for infection. She was discharged home in stable condition. Labs and Pending Lab Test: Laboratory Tests 04/22/20 03:05: White Blood Count 18.2H, Red Blood Count 4.79, Hemoglobin 13.9, Hematocrit 40, Mean Corpuscular Volume 84, Mean Corpuscular Hemoglobin 29, Mean Corpuscular Hemoglobin Concent 35, Red Cell Distribution Width 12.0, Platelet Count 340, Mean Platelet Volume 10.0, Sodium Level 137, Potassium Level 4.3, Chloride Level 108H, Carbon Dioxide Level 18L, Anion Gap 11, Blood Urea Nitrogen 14, Creatinine 0.71, Estimat Glomerular Filtration Rate > 60, BUN/Creatinine Ratio 20, Glucose Level 131H, Calcium Level 8.6, Phosphorus Level 2.6, Magnesium Level 2.2, Procalcitonin 0.02 2/20/21 07:45: Urine Color YELLOW, Urine Clarity CLEAR, Urine pH 6.5, Urine Specific [place] 1.010L, Urine Protein NEGATIVE, Urine Glucose (UA) NEGATIVE, Urine Ketones NEGATIVE, Urine Nitrite NEGATIVE, Urine Bilirubin NEGATIVE, Urine Urobilinogen 0.2, Urine Leukocyte Esterase NEGATIVE, Urine RBC (Auto) NEGATIVE, Urine RBC NONE, Urine WBC RARE, Urine Crystals NONE, Urine Bacteria NEGATIVE, Urine Casts NONE, Urine Mucus NEGATIVE, Urine Culture Indicated NO Home Meds Active Rosuvastatin Calcium 40 Mg Tablet 40 Mg PO HS 90 Days Reported Pravastatin Sodium 20 Mg Tablet 20 Mg PO HS Plavix (Clopidogrel Bisulfate) 75 Mg Tablet 75 Mg PO HS Metoprolol Succinate 50 Mg Tab.er.24h 50 Mg PO HS Diphenhydramine HCl 25 Mg Capsule 75 Mg PO HS TAKES 3 (25MG) CAPS Aspirin EC (Aspirin) 325 Mg Tablet.dr 325 Mg PO BID Voltaren Arthritis Pain (Diclofenac Sodium) 20 Gm Gel..gram. 1 Applic TP PRN PRN Iron (Ferrous Sulfate) 325 Mg Tablet 325 Mg PO DAILY B Complex (Vitamin B Complex) 1 Each Tablet 1 Each PO DAILY Diphenhydramine HCl 25 Mg Capsule 25 Mg PO DAILY Magnesium (Magnesium Oxide) 250 Mg Tablet 250 Mg PO DAILY 5-Htp (5-Hydroxytryptophan) 100 Mg Capsule 200 Mg PO HS TAKES 2 CAPS Assessment/Pt Instructions Take medications as prescribed. Begin taking Crestor for hyperlipidemia. Follow-up with cardiology. Follow-up with your primary care physician. Return with worsening chest pain or fibula creating worse. Discharge Planning: <30 minutes discharge planning Discharge Instructions Discharge Diet: Low Sodium Diet Activity as Tolerated: Yes Consultations cardiology Discharge Physical Examination Vital Signs Vital Signs Date Time Temp Pulse Resp B/P (MAP) Pulse Ox O2 Delivery O2 Flow Rate FiO2 04/22/20 10:00 69 23 111/46 (67) 99 Room Air 04/22/20 07:36 36.5 General Appearance: No Apparent Distress, Obese Respiratory: Lungs Clear, Normal Breath Sounds, No Respiratory Distress Cardiovascular: Regular Rate, Rhythm, No Edema, No Murmur Gastrointestinal: Normal Bowel Sounds, Non Tender, Soft Extremity: Normal Inspection, Non Tender, No Pedal Edema Skin: Normal Color, Warm/Dry Neurologic/Psychiatric: Alert, Oriented x3, No Motor/Sensory Deficits, Normal Mood/Affect Allergies: Coded Allergies: nitrofurantoin (Verified Allergy, Severe, 03/02/20) shellfish derived (Verified Allergy, Severe, 03/02/20) atorvastatin (Verified Allergy, Intermediate, 03/02/20) pt states it makes her hurt all over/extreme pain Penicillins (Unverified Allergy, Mild, 06/09/08) aspirin (Unverified Allergy, Mild, convulsions, 03/02/20) codeine (Verified Allergy, Unknown, 03/02/20) Discharge Summary Date of Admission Apr 20, 2020 at 13:04 Date of Discharge Discharge Date: Apr 22, 2020 Discharge Time: 10:26 Admission Diagnosis NSTEMI Consults/Procedures Consulations cardiology Discharge Diagnosis NSTEMI (1) NSTEMI (non-ST elevation myocardial infarction) Status: Acute (2) CAD (coronary artery disease) Status: Acute (3) HTN (hypertension) Status: Chronic Qualifiers: Qualified Codes: I10 - Essential (primary) hypertension (4) HLD (hyperlipidemia) Status: Chronic (5) Obesity Status: Chronic Clinical Quality Measures AMI/AHF: ASA po Prior to arrival: Yes (AT HOME ) CARLI REICH MD Apr 22, 2020 10:27
--- NOTE | 2020-04-22 14:28 | Cardiology Progress Note ---
Cardiology SOAP Progress Note Subjective: No chest pain. Objective: I&O/Vital Signs 04/22/20 04/22/20 04/22/20 04/22/20 03:00 04:00 05:00 05:42 Temp 36.6 Pulse 81 70 75 Resp 19 20 16 B/P (MAP) 128/105 (113) 130/74 (92) 107/69 (82) Pulse Ox 97 97 97 O2 Delivery Room Air Room Air Room Air 04/22/20 04/22/20 04/22/20 04/22/20 06:00 07:00 07:00 07:36 Temp 36.5 Pulse 73 81 79 Resp 15 16 B/P (MAP) 129/71 (90) 144/87 (106) Pulse Ox 96 99 O2 Delivery Room Air Room Air Room Air 04/22/20 04/22/20 04/22/20 04/22/20 08:00 08:41 09:00 10:00 Pulse 84 72 69 Resp 24 16 23 B/P (MAP) 126/72 (90) 103/68 (80) 111/46 (67) Pulse Ox 96 100 99 O2 Delivery Room Air Room Air Room Air Room Air 04/22/20 04/22/20 04/22/20 04/22/20 11:00 12:00 12:13 12:22 Temp 36.4 Pulse 73 74 Resp 13 15 B/P (MAP) 116/46 (69) 124/69 (87) Pulse Ox 100 100 O2 Delivery Room Air Room Air Room Air 04/22/20 04/22/20 04/22/20 12:44 13:00 14:00 Pulse 78 76 70 Resp 26 14 B/P (MAP) 128/79 (95) 119/69 (86) Pulse Ox 97 97 O2 Delivery Room Air Room Air 04/22/20 00:00 Intake Total 400 ml Output Total 400 ml Balance 0 ml Constitutional: AAO x 3, well-developed, well-nourished Respiratory: No accessory muscle use, No respiratory distress; chest expansion is symmetric, chest is bilaterally symmetric, lungs clear to auscultation Cardiovascular: regular rate-rhythm; No JVD; S1 and S2 Gastrointestional: No tender; soft, round, audible bowel sounds Extremities: no lower extremity edema bilateral Neurologic/Psychiatric: grossly intact (moves all extremities) Skin: No rash on exposed areas, No ulcerations on exposed areas Results/Procedures: Labs Laboratory Tests 04/22/20 03:05: White Blood Count 18.2H, Red Blood Count 4.79, Hemoglobin 13.9, Hematocrit 40, Mean Corpuscular Volume 84, Mean Corpuscular Hemoglobin 29, Mean Corpuscular Hemoglobin Concent 35, Red Cell Distribution Width 12.0, Platelet Count 340, Mean Platelet Volume 10.0, Sodium Level 137, Potassium Level 4.3, Chloride Level 108H, Carbon Dioxide Level 18L, Anion Gap 11, Blood Urea Nitrogen 14, Creatinine 0.71, Estimat Glomerular Filtration Rate > 60, BUN/Creatinine Ratio 20, Glucose Level 131H, Calcium Level 8.6, Phosphorus Level 2.6, Magnesium Level 2.2, Procalcitonin 0.02 04/22/20 07:45: Urine Color YELLOW, Urine Clarity CLEAR, Urine pH 6.5, Urine Specific [place] 1.010L, Urine Protein NEGATIVE, Urine Glucose (UA) NEGATIVE, Urine Ketones NEGATIVE, Urine Nitrite NEGATIVE, Urine Bilirubin NEGATIVE, Urine Urobilinogen 0.2, Urine Leukocyte Esterase NEGATIVE, Urine RBC (Auto) NEGATIVE, Urine RBC NONE, Urine WBC RARE, Urine Crystals NONE, Urine Bacteria NEGATIVE, Urine Casts NONE, Urine Mucus NEGATIVE, Urine Culture Indicated NO A/P: Assessment/Dx: Ac NSTEMI on 04/20/20, treated with PCI (see below) CAD - Card cath and PCI on 03/02/20: Coronary artery disease primarily consisting of 95% ostial stenosis of the left anterior descending to just past origin of large D1 to which successful balloon angioplasty was carried out with reduced the stenosis to less than 30%. Mild plaque in other cors. RCA dominant - Card cath and PCI on 04/21/20: PTCA for 95% restenosis as site of PTCA in mid LAD, just past D1, reducing the lesion to less than 10% and with normal antegrade flow, LVEDP 12 mmHg, LVEF 50-55% HTN Scleroderma, by history H/O rheumatic fever as a child Celiac dz HLD H/o occular stroke Reported allergy to ASA (however, she has been taking ASA, per her report, without difficulty) - reports h/o convulsions Reported shellfish allergy H/O chronic joint pain d/t arthritis Family h/o premature CAD (brothers x2 and father) Plan: PCI to LAD performed (balloon angioplasty done because location of lesion did not appear suitable for stenting) and good results obtained Continue DAPT and BB and statin Monitor lab Replace electrolytes as indicated Discharge today, follow-up with Dr. Vora in 2 weeks. Thank you for your consultation. Please call me if you have any questions. Clarice Smith MD, FACP, FACC, FSCAI, FHRS, CCDS Interventional Cardiology Cardiac Electrophysiology Vascular Medicine and Endovascular Interventions Clinical Quality Measures AMI/AHF: ASA po Prior to arrival: Yes (AT HOME ) Elissa SMITH MD Apr 22, 2020 14:28
== END 2020-04-22 17:20 | disposition home or self-care (01) | DRG 251 ==
LOC: EDUNIT# 11:56 → ER 11:58 → CSD 13:04 → ICU 04-21 09:37
PROVIDERS: ADMIT Internal Medicine; ATTEND Internal Medicine
PROC: 02703ZZ Dilation of Coronary Artery, One Artery, Percutaneous Approach (ICD-10-PCS; principal; 2020-04-21)
PROC: 4A023N7 Measurement of Cardiac Sampling and Pressure, Left Heart, Percutaneous Approach (ICD-10-PCS; 2020-04-21)
PROC: B2111ZZ Fluoroscopy of Multiple Coronary Arteries using Low Osmolar Contrast (ICD-10-PCS; 2020-04-21)
PROC: B2151ZZ Fluoroscopy of Left Heart using Low Osmolar Contrast (ICD-10-PCS; 2020-04-21)
DX: I21.4 Non-ST elevation (NSTEMI) myocardial infarction (principal); E78.00 Pure hypercholesterolemia, unspecified; I10 Essential (primary) hypertension; G43.909 Migraine, unspecified, not intractable, without status migrainosus; M06.9 Rheumatoid arthritis, unspecified; F41.9 Anxiety disorder, unspecified; F32.9 Major depressive disorder, single episode, unspecified; I25.10 Atherosclerotic heart disease of native coronary artery without angina pectoris; E66.9 Obesity, unspecified; M34.9 Systemic sclerosis, unspecified; I73.00 Raynaud's syndrome without gangrene; L40.9 Psoriasis, unspecified; K90.0 Celiac disease; G89.29 Other chronic pain; M25.50 Pain in unspecified joint; Z88.0 Allergy status to penicillin; Z88.6 Allergy status to analgesic agent; Z91.013 Allergy to seafood; Z79.82 Long term (current) use of aspirin
CPT/HCPCS: 36415; 71045; 80048; 80053; 80061; 81000; 83735; 83874; 83880; 84100; 84145; 84484; 85025; 85027; 85610; 85730; 93005; 93041; 93458

== ENCOUNTER 2020-06-07 14:15 | Day surgery (SDC) | payer MEDICARE, MEDICAID ==
[~2020-06-07] VITALS: Ht 153.1 cm; Wt 102.3 kg
[~2020-06-07 14:15] MED LIST changes: +ASPI325T32 PO; +CLOP75TA69 PO; +ROSU40TA23 PO
[2020-06-07 14:44] LABS: BASOPHILS % (AUTO) 0 % (0-10); EOSINOPHILS # (AUTO) 0.3 10^3/uL (0.0-0.3); EOSINOPHILS % (AUTO) 3 % (0-10); HEMATOCRIT 45 % (35-52); LYMPHOCYTES % (AUTO) 24 % (12-44); MEAN CORPUSCULAR HEMOGLOBIN 29 pg (25-34); MEAN CORPUSCULAR HGB CONC 34 g/dL (32-36); MEAN CORPUSCULAR VOLUME 86 fL (80-99); MEAN PLATELET VOLUME 9.5 fL (9.0-12.2); MONOCYTES # (AUTO) 0.8 10^3/uL (0.0-1.0); MONOCYTES % (AUTO) 10 % (0-12); NEUTROPHILS # (AUTO) 5.1 10^3/uL (1.8-7.8); NEUTROPHILS % (AUTO) 63 % (42-75); PLATELET COUNT 313 10^3/uL (130-400); WHITE BLOOD COUNT 8.2 10^3/uL (4.3-11.0)
[2020-06-07] MEDS ORDERED: NS IV 1000 ML 1,000 ML IV SCH (14:45)
[2020-06-07] MEDS ORDERED: NITROGLYCERIN 0.4 MG SL TABS BTL 25'S SL PRN ×2 (14:45→18:00)
--- NOTE | 2020-06-07 14:46 | ED Chest Pain ---
General Chief Complaint: Chest Pain Stated Complaint: CP Source: patient Exam Limitations: no limitations History of Present Illness Date Seen by Provider: Jun 07, 2020 Time Seen by Provider: 14:30 Initial Comments Patient is a 54-year-old female who presents to the emergency department today with a chief complaint of chest pain onset as she was walking into [facility] just prior to arrival in the emergency department. Patient states that the pain is a crushing and stabbing discomfort in the central portion of her chest which radiates up into her right neck and jaw. Patient states that she became profusely diaphoretic at the onset of the pain and a little short of breath. She denies any nausea. Patient states that she has had similar pain twice in the past both of which required angiography and intervention. Last heart cath was approximately 6 weeks ago. The patient had plaquing in her LAD artery and angioplasty. She had intervention approximately 7 weeks prior to this in the same location. 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 Patient states that she is compliant with her Plavix and aspirin. She takes 2 regular aspirin every 6 hours for arthritis pain. She took 2 aspirin just prior to the onset of her pain today. She denies any recent illnesses such as fevers, chills cough or congestion. No nausea, vomiting diarrhea or urinary complaints. No swelling in her lower extremities. Patient has never been a smoker. She is compliant with her cholesterol medication and her hypertension medication. She does have significant family history of coronary artery disease in brothers and her father. Patient is currently rating her pain at "3 or 4" at its worst at onset it was a "7 or an 8". Timing/Duration: 1/2 hour Severity/Quality: moderate Location: substernal, central Radiation: jaw, neck (Right side of neck) Activities at Onset: activity (Walking in [facility]) Prior CP/Workup: cardiac cath, heart attack ASA po EQUIPMENT DRIVER: Yes NTG SL EQUIPMENT DRIVER: No Associated Symptoms: back pain (Right shoulder blade) Allergies and Home Medications Allergies Coded Allergies: nitrofurantoin (Verified Allergy, Severe, 03/02/20) shellfish derived (Verified Allergy, Severe, 03/02/20) atorvastatin (Verified Allergy, Intermediate, 03/02/20) pt states it makes her hurt all over/extreme pain Penicillins (Unverified Allergy, Mild, 06/09/08) codeine (Verified Allergy, Unknown, 03/02/20) Home Medications Aspirin 325 Mg Tablet.dr, 325 MG PO BID, (Reported) Clopidogrel Bisulfate 75 Mg Tablet, 75 MG PO HS, (Reported) Diclofenac Sodium 20 Gm Gel..gram., 1 APPLIC TP PRN PRN for PAIN-BREAKTHROUGH, (Reported) Diphenhydramine HCl 25 Mg Capsule, 25 MG PO DAILY, (Reported) Diphenhydramine HCl 25 Mg Capsule, 75 MG PO HS, (Reported) TAKES 3 (25MG) CAPS Ferrous Sulfate 325 Mg Tablet, 325 MG PO DAILY, (Reported) Magnesium Oxide 250 Mg Tablet, 250 MG PO DAILY, (Reported) Metoprolol Succinate 50 Mg Tab.er.24h, 50 MG PO HS, (Reported) Rosuvastatin Calcium 40 Mg Tablet, 40 MG PO HS Prescribed by: CARLI REICH on 04/22/20 0900 Vitamin B Complex 1 Each Tablet, 1 EACH PO DAILY, (Reported) Patient Home Medication List Home Medication List Reviewed: Yes Review of Systems Review of Systems Constitutional: see HPI EENTM: No Symptoms Reported Respiratory: SOA With Exertion Cardiovascular: Chest Pain Gastrointestinal: No Symptoms Reported Genitourinary: No Symptoms Reported Musculoskeletal: no symptoms reported Skin: no symptoms reported Psychiatric/Neurological: No Symptoms Reported All Other Systems Reviewed Negative Unless Noted: Yes Past Wiujoto-Rntype-Ewzxfk Hx Patient Social History Recent Hopitalizations: No Seasonal Allergies Seasonal Allergies: Yes Past Medical History Surgeries: Yes (C-SPINE SURGERY; LEFT ELBOW ULNAR NERVE SURGERY) Gallbladder, Orthopedic Respiratory: No Asthma Cardiac: Yes High Cholesterol, Hypertension Neurological: Yes 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 SPEC History: Menopausal Genitourinary: No Gastrointestinal: Yes (S/P CHOLECYSTECTOMY; CELIAC DISEASE) Gall Bladder Disease Musculoskeletal: Yes (SCLERODERMA; C-SPINE SURGERY; LEFT ELBOW ULNAR NERVE SURGERY) Rheumatoid Arthritis Endocrine: No HEENT: Yes (SINUS PROBLEMS) Cancer: No Psychosocial: Yes Anxiety, Depression Integumentary: No Psoriasis Blood Disorders: No Family Medical History Alcoholism G8 BROTHER, Onset:15's - 20 Arthritis 19 MOTHER, Onset:Adolescence G8 BROTHER, Onset:Adolescence G8 SISTER, Onset:25's - 30 Asthma G8 BROTHER Cataracts 19 FATHER, Onset:60 years & older Deafness or hearing loss 19 FATHER Dementia 19 FATHER Diabetes mellitus 19 MOTHER G8 BROTHER Hypertension 19 FATHER G8 BROTHER Myocardial infarction 19 FATHER, Onset:60 years & older G8 BROTHER, Onset:40's - 50 Psychosocial problem G8 BROTHER, Onset:25's - 30 Severe allergy 19 FATHER, Onset:Reserve 19 MOTHER, Onset:Childhood Physical Exam Vital Signs Vital Signs - First Documented 06/07/20 14:17 Temp 36.1 Pulse 67 Resp 18 B/P (MAP) 128/64 (85) Pulse Ox 98 O2 Delivery Room Air Capillary Refill : Height, Weight, BMI Height: '" Weight: lbs. oz. kg; 39.84 BMI Method: General Appearance: No Apparent Distress, WD/WN, Anxious (Mildly anxious appearing) HEENT: PERRL/EOMI Neck: Normal Inspection Respiratory: Lungs Clear, Normal Breath Sounds, No Accessory Muscle Use, No Respiratory Distress Cardiovascular: Regular Rate, Rhythm Gastrointestinal: Normal Bowel Sounds, Non Tender, Soft Extremity: Normal Inspection, Normal Range of Motion, Non Tender, No Calf Tenderness, No Pedal Edema Neurologic/Psychiatric: Alert, Oriented x3, No Motor/Sensory Deficits, Normal Mood/Affect Skin: Normal Color, Warm/Dry Progress/Results/Core Measures Results/Orders Lab Results Laboratory Tests Test 06/07/20 14:25 Range/Units White Blood Count 8.2 4.3-11.0 10^3/uL Red Blood Count 5.20 H 3.80-5.11 10^6/uL Hemoglobin 15.0 11.5-16.0 g/dL Hematocrit 45 35-52 % Mean Corpuscular Volume 86 80-99 fL Mean Corpuscular Hemoglobin 29 25-34 pg Mean Corpuscular Hemoglobin Concent 34 32-36 g/dL Red Cell Distribution Width 12.1 10.0-14.5 % Platelet Count 313 130-400 10^3/uL Mean Platelet Volume 9.5 9.0-12.2 fL Immature Granulocyte % (Auto) 0 % Neutrophils (%) (Auto) 63 42-75 % Lymphocytes (%) (Auto) 24 12-44 % Monocytes (%) (Auto) 10 0-12 % Eosinophils (%) (Auto) 3 0-10 % Basophils (%) (Auto) 0 0-10 % Neutrophils # (Auto) 5.1 1.8-7.8 10^3/uL Lymphocytes # (Auto) 2.0 1.0-4.0 10^3/uL Monocytes # (Auto) 0.8 0.0-1.0 10^3/uL Eosinophils # (Auto) 0.3 0.0-0.3 10^3/uL Basophils # (Auto) 0.0 0.0-0.1 10^3/uL Immature Granulocyte # (Auto) 0.0 0.0-0.1 10^3/uL Prothrombin Time 13.1 12.2-14.7 SEC INR Comment 1.0 0.8-1.4 Activated Partial Thromboplast Time 33 24-35 SEC Sodium Level 138 135-145 MMOL/L Potassium Level 4.2 3.6-5.0 MMOL/L Chloride Level 103 98-107 MMOL/L Carbon Dioxide Level 23 21-32 MMOL/L Anion Gap 12 5-14 MMOL/L Blood Urea Nitrogen 16 7-18 MG/DL Creatinine 0.81 0.60-1.30 MG/DL Estimat Glomerular Filtration Rate > 60 BUN/Creatinine Ratio 20 Glucose Level 115 H 70-105 MG/DL Calcium Level 9.0 8.5-10.1 MG/DL Total Creatine Kinase 83 29-168 U/L Creatine Kinase MB 3.1 <6.6 NG/ML Troponin I < 0.028 <0.028 NG/ML My Orders Orders - ARCHANA WHARTON MD Cbc With Automated Diff (06/07/20 14:36) Basic Metabolic Panel (06/07/20 14:36) Creatine Kinase (06/07/20 14:36) Creatine Kinase Mb (06/07/20 14:36) Troponin I (06/07/20 14:36) Ekg Tracing (06/07/20 14:36) Chest 1 View, Ap/Pa Only (06/07/20 14:36) Protime With Inr (06/07/20 14:36) Partial Thromboplastin Time (06/07/20 14:36) Ns Iv 1000 Ml (Sodium Chloride 0.9%) (06/07/20 14:45) Nitroglycerin 0.4 Mg Btl 25's (Nitrostat (06/07/20 14:45) Medications Given in ED Vital Signs/I&O 06/07/20 06/07/20 14:17 14:46 Temp 36.1 Pulse 67 Resp 18 B/P (MAP) 128/64 (85) Pulse Ox 98 O2 Delivery Room Air Room Air Initial ECG Impression Date: Jun 07, 2020 Initial ECG Impression Time: 14:30 Initial ECG Rate: 68 Initial ECG Rhythm: Normal Sinus Initial ECG Intervals: Normal Initial ECG Impression: Nonspecific Changes Diagnostic Imaging Diagonstic Imaging: Xray Plain Films/CT/US/NM/MRI: chest Comments [facility]. [place], [place] NAME: LUCILA BRENNER [facility] REC#: [id number] PT STATUS: REG ER : 1965 PHYSICIAN: ARCHANA WHARTON MD ADMIT DATE: 06/07/20/ER Draft Date of Exam:06/07/20 CHEST 1 VIEW, AP/PA ONLY EXAMINATION: Chest 1 view HISTORY: Chest pain. COMPARISON: 04/22/2020. FINDINGS: The lungs are clear without edema or pneumonia. No pleural effusion or pneumothorax. Heart size is normal. IMPRESSION: 1. Clear lungs. Dictated on workstation # [id number] Dict: 06/07/20 1459 Trans: 06/07/20 1500 [facility] [phone] Interpreted by: ROSITA HOLLEY MD Electronically signed by: Departure Communication (Admissions) Time/Spoke to Admitting Phy: 15:[address] Samaniego who accepts the patient for observation admission Time/Spoke to Consulting Phy: 15:[address] Oden's nurse practitioner who will make him aware of the consult Impression Primary Impression: Chest pain Qualified Codes: R07.9 - Chest pain, unspecified Additional Impression: CAD (coronary artery disease) Qualified Codes: I25.119 - Atherosclerotic heart disease of [place] coronary artery with unspecified angina pectoris Disposition: ADMITTED INPATIENT Condition: Stable Admissions Decision to Admit Reason: Admit from ER (General) Decision to Admit/Date: Jun 07, 2020 Time/Decision to Admit Time: 15:14 Departure-Patient Inst. Referrals: [facility] [place] (PCP) Primary Care Physician ROSI CABRERA APRN (Family) Primary Care Physician ARCHANA WHARTON MD Jun 07, 2020 14:46
[2020-06-07 14:53] LABS: CHLORIDE 103 MMOL/L (98-107); POTASSIUM 4.2 MMOL/L (3.6-5.0); SODIUM 138 MMOL/L (135-145)
[2020-06-07 14:54] LABS: GLUCOSE 115 MG/DL (70-105)
[2020-06-07 14:56] LABS: CARBON DIOXIDE 23 MMOL/L (21-32)
[2020-06-07 14:57] LABS: PROTHROMBIN TIME PATIENT 13.1 SEC (12.2-14.7)
[2020-06-07 14:58] LABS: CREATININE SERUM 0.81 MG/DL (0.60-1.30); GFR ESTIMATED > 60
[2020-06-07 14:59] LABS: BUN/CREATININE RATIO 20
[2020-06-07 15:01] LABS: CREATINE KINASE 83 U/L (29-168)
--- NOTE | 2020-06-07 15:01 | Diagnostic Imaging Report ---
EXAMINATION: Chest 1 view HISTORY: Chest pain. COMPARISON: 04/22/2020. FINDINGS: The lungs are clear without edema or pneumonia. No pleural effusion or pneumothorax. Heart size is normal. IMPRESSION: 1. Clear lungs. Dictated by: Dictated on workstation # [id number]
[2020-06-07 15:07] LABS: CREATINE KINASE MB 3.1 NG/ML (<6.6)
--- NOTE | 2020-06-07 15:10 | Consultation-Cardiology ---
HPI-Cardiology Cardiology Consultation Date of Consultation 06/07/20 Date of Admission Time Seen by Provider: 15:08 Indication: Chest pain HPI Patient is a 54 y/o female with history of CAD with PTCA in Feb 2020 and Apr 2020 to prox LAD, HTN, HLP. Presented to the ER with complaints of chest pain, onset earlier today while walking in [employer]. Currently c/o chest pain rated 3/10. Associated dyspnea and dizziness. No syncope. Patient reports symptoms are similar to when she had NSTEMI in recent past. 54 years old lady with history of coronary artery disease, hypertension hyperlipidemia, had recurrent intervention on the LAD over the past few months. Started to have chest pain described as dull in nature radiating to the shoulder with shortness of breath. Came into the emergency room, cardiac enzymes and EKG did not show any acute abnormality Home Medications & Allergies Allergies: Coded Allergies: nitrofurantoin (Verified Allergy, Severe, 03/02/20) shellfish derived (Verified Allergy, Severe, 03/02/20) atorvastatin (Verified Allergy, Intermediate, 03/02/20) pt states it makes her hurt all over/extreme pain Penicillins (Unverified Allergy, Mild, 06/09/08) codeine (Verified Allergy, Unknown, 03/02/20) Home Medication List Reviewed: Yes RSU-Cvypja-Qqasvo Hx Patient Social History Recreational Drug Use: No Smoking Status: Never a Smoker Recent Hopitalizations: No Past Medical History CAD, HTN, HLP Family Medical History Family History: Alcoholism G8 BROTHER, Onset:15's - 20 Arthritis 19 MOTHER, Onset:Adolescence G8 BROTHER, Onset:Adolescence G8 SISTER, Onset:25's - 30 Asthma G8 BROTHER Cataracts 19 FATHER, Onset:60 years & older Deafness or hearing loss 19 FATHER Dementia 19 FATHER Diabetes mellitus 19 MOTHER G8 BROTHER Hypertension 19 FATHER G8 BROTHER Myocardial infarction 19 FATHER, Onset:60 years & older G8 BROTHER, Onset:40's - 50 Psychosocial problem G8 BROTHER, Onset:25's - 30 Severe allergy 19 FATHER, Onset: 19 MOTHER, Onset:Childhood Review of Systems-General Review of Systems Constitutional: no symptoms reported, see HPI; No diaphoresis, No fever, No malaise, No weakness EENTM: see HPI, no symptoms reported; No blurred vision, No double vision Cardiovascular: see HPI, chest pain, Hx of Intervention, palpitations, vascular heart diseas Gastrointestinal: no symptoms reported; No abdominal pain Genitourinary: no symptoms reported Musculoskeletal: no symptoms reported Skin: no symptoms reported Psychiatric/Neurological: No Symptoms Reported All Other Systems Reviewed Negative Unless Noted: Yes Reviewed Test Results Reviewed Test Results Lab Laboratory Tests 06/07/20 14:25: White Blood Count 8.2, Red Blood Count 5.20H, Hemoglobin 15.0, Hematocrit 45, Mean Corpuscular Volume 86, Mean Corpuscular Hemoglobin 29, Mean Corpuscular Hemoglobin Concent 34, Red Cell Distribution Width 12.1, Platelet Count 313, Mean Platelet Volume 9.5, Immature Granulocyte % (Auto) 0, Neutrophils (%) (Auto) 63, Lymphocytes (%) (Auto) 24, Monocytes (%) (Auto) 10, Eosinophils (%) (Auto) 3, Basophils (%) (Auto) 0, Neutrophils # (Auto) 5.1, Lymphocytes # (Auto) 2.0, Monocytes # (Auto) 0.8, Eosinophils # (Auto) 0.3, Basophils # (Auto) 0.0, Immature Granulocyte # (Auto) 0.0, Prothrombin Time 13.1, INR Comment 1.0, Activated Partial Thromboplast Time 33, Sodium Level 138, Potassium Level 4.2, Chloride Level 103, Carbon Dioxide Level 23, Anion Gap 12, Blood Urea Nitrogen 16, Creatinine 0.81, Estimat Glomerular Filtration Rate > 60, BUN/Creatinine Ratio 20, Glucose Level 115H, Calcium Level 9.0, Total Creatine Kinase 83, Creatine Kinase MB 3.1, Troponin I < 0.028 ECG Impression ECG Initial ECG Rhythm: Normal Sinus Physical Exam Physical Exam Vital Signs Vital Signs - First Documented 06/07/20 14:17 Temp 36.1 Pulse 67 Resp 18 B/P (MAP) 128/64 (85) Pulse Ox 98 O2 Delivery Room Air Capillary Refill : Less Than 3 Seconds Height, Weight, BMI Height: '" Weight: lbs. oz. kg; 38.00 BMI Method: General Appearance: No Apparent Distress, WD/WN, Anxious (Mildly anxious appearing) HEENT: PERRL/EOMI Neck: Normal Inspection Respiratory: Lungs Clear, Normal Breath Sounds, No Accessory Muscle Use, No Respiratory Distress Cardiovascular: Regular Rate, Rhythm Gastrointestinal: Normal Bowel Sounds, Non Tender, Soft Extremity: Normal Inspection, Normal Range of Motion, Non Tender, No Calf Tenderness, No Pedal Edema Neurologic/Psychiatric: Alert, Oriented x3, No Motor/Sensory Deficits, Normal Mood/Affect Skin: Normal Color, Warm/Dry A/P-Cardiology Admission Diagnosis Chest pain CAD HTN HLP Assessment/Plan Chest pain, resembling angina, was given SL NG with some relief of pain. EKG showing nonspecific ST changes with PVCs. Initial troponin negative. Will continue to monitor. CAD, under went Card cath and PCI on 03/02/[address] Vora showing coronary artery disease primarily consisting of 95% ostial stenosis of the left anterior descending to just past origin of large D1 to which successful balloon angioplasty was carried out with reduced the stenosis to less than 30%. Mild plaque in other cors. RCA dominant Patient had NSTEMI and underwent Card cath and PCI on 04/21/20 wt PTCA for 95% restenosis as site of PTCA in mid LAD, just past D1, reducing the lesion to less than 10% and with normal antegrade flow, LVEDP 12 mmHg, LVEF 50-55%. Maintained on ASA and Plavix. Patient reports compiance with medications HTN, restart home BP medications and continue to monitor Hyperlipidemia, maintained on Crestor. Evaluate lipid profile. Scleroderma, by history H/O rheumatic fever as a child Celiac dz H/o occular stroke Reported allergy to ASA (however, she has been taking ASA, per her report, without difficulty) - reports h/o convulsions Reported shellfish allergy H/O chronic joint pain d/t arthritis Family h/o premature CAD (brothers x2 and father) Thank you for allowing us to participate in the management of Ms. Garcia. This is Ria Suarez PA-C, as a scribe for Dr. Oden. Patient was seen and evaluated with Ria, examination performed, management plan was discussed, agree with the current scribed note, I made few changes to the note using Italic font Patient was chest pain-free, has been having accelerating angina, had extensive coronary artery disease history as described above I am planning to monitor overnight and proceed with left heart catheterization possible PTCA Restart home medication monitor blood pressure and lipids. Clinical Quality Measures AMI/AHF: ASA po Prior to arrival: Yes RIA MIXON Jun 07, 2020 15:10 ELIZABETH ODEN MD Jun 07, 2020 18:23
--- NOTE | 2020-06-07 15:37 | History & Physical-Hospitalist ---
History of Present Illness HPI/Chief Complaint CC: CP HPI: This is a 54yoWF clinic patient of [facility] who has a h/o angioplasty x [address] Vora but no stent placed due to junction of arteries angle and h/o systemic sclerosis who presents to the ER with CP. Cardiology plans on completing a cath tomorrow. Source: patient Exam Limitations: no limitations Date Seen 06/07/20 Time Seen by a Provider: 15:30 Attending Physician [facility] Referring Physician Date of Admission Home Medications & Allergies Home Medications Reviewed patient Home Medication Reconciliation performed by pharmacy medication reconciliations multi craft maintenance technician and/or nursing. Patients Allergies have been reviewed. Allergies Allergies Coded Allergies nitrofurantoin (Verified Allergy, Severe, 03/02/20) shellfish derived (Verified Allergy, Severe, 03/02/20) atorvastatin (Verified Allergy, Intermediate, 03/02/20) pt states it makes her hurt all over/extreme pain Penicillins (Unverified Allergy, Mild, 06/09/08) codeine (Verified Allergy, Unknown, 03/02/20) Patient Social History Marrital Status: Employed/Student: retired Smoking Status: Never a Smoker Substance use?: No Alcohol Use?: No Current Status Primary Language: Khmer Past Medical History SS CAD HTN Family Medical History Family Hx: CAD Review of Systems Constitutional: see HPI Cardiovascular: chest pain Physical Exam Physical Exam Vital Signs Vital Signs - First Documented 06/07/20 14:17 Temp 36.1 Pulse 67 Resp 18 B/P (MAP) 128/64 (85) Pulse Ox 98 O2 Delivery Room Air Capillary Refill : Less Than 3 Seconds Height, Weight, BMI Height: '" Weight: lbs. oz. kg; 38.00 BMI Method: General Appearance: No Apparent Distress, Chronically ill Eyes: Right Eye Normal Inspection, Right Eye PERRL HEENT: PERRL/EOMI, Normal ENT Inspection, Pharynx Normal, Moist Mucous Membranes Neck: Full Range of Motion, Normal Inspection, Non Tender Respiratory: Chest Non Tender, Lungs Clear, Normal Breath Sounds, No Accessory Muscle Use, No Respiratory Distress Cardiovascular: Regular Rate, Rhythm, No Edema, No Gallop, No JVD, No Murmur, Normal Peripheral Pulses Gastrointestinal: Normal Bowel Sounds, No Organomegaly, No Pulsatile Mass, Non Tender, Soft Back: Normal Inspection, No CVA Tenderness, No Vertebral Tenderness Extremity: Normal Capillary Refill, Normal Inspection, Normal Range of Motion, Non Tender, No Calf Tenderness, No Pedal Edema Neurologic/Psychiatric: Alert, Oriented x3, No Motor/Sensory Deficits, Normal Mood/Affect Skin: Normal Color, Warm/Dry Lymphatic: No Adenopathy Results Results/Procedures Labs Laboratory Tests 06/07/20 14:25 Patient resulted labs reviewed. Assessment/Plan Admission Diagnosis Assessment: CP CAD SS HTN Plan: Cardiology consultation Admission Status: Observation Clinical Quality Measures AMI/AHF: ASA po Prior to arrival: Yes LULU WAGNER DO Jun 07, 2020 15:37
[2020-06-07 16:00] VITALS: BP 129/71
[2020-06-07] MEDS ORDERED: CITA10TA12 PO (16:14)
[2020-06-07] MEDS: NS IV 1000 ML 1,000 ML IV SCH ×2 (18:00→23:24)
[2020-06-07] MEDS ORDERED: ONDANSETRON 4 MG/2 ML (SDV) Z0FRAN IVP PRN (18:00)
[2020-06-07] MEDS ORDERED: CATHETER FLUSH 10 ML SYR IV PRN (18:00)
[2020-06-07 20:00] VITALS: BP 109/72
[2020-06-07 23:28] VITALS: BP 108/65
[2020-06-08 04:52] VITALS: BP 124/67
[2020-06-08] MEDS ORDERED: DICLOFENAC 1% GEL 100 GM (VOLTAREN) TUBE TP PRN (05:30)
[2020-06-08] MEDS ORDERED: MULTIVIT W/MINERALS TAB (THERAGRAN M) PO SCH (07:00)
[2020-06-08] MEDS ORDERED: LIDOCAINE 1% INJ 20 ML 20 ML VIAL ONE (07:16)
[2020-06-08] MEDS ORDERED: HEParin (CATH LAB) 2,000 ML IV ONE (07:17)
[2020-06-08] MEDS ORDERED: MIDAZOLAM 5 MG/5 ML (VERSED) VIAL ONE (07:17)
[2020-06-08] MEDS ORDERED: methylPREDNISolone 125 MG (Solu-MEDROL) VIAL ONE (07:18)
[2020-06-08] MEDS ORDERED: diphenhydrAMINE 50 MG/ML INJ (BENADRYL) ONE (07:18)
[2020-06-08] MEDS ORDERED: fentaNYL INJ 100 MCG/2 ML AMP ONE (07:18)
[2020-06-08] MEDS ORDERED: NS IV 1000 ML 1,000 ML ONE (07:37)
[2020-06-08] MEDS ORDERED: NITRO DRIP 25000 MCG/D5W 250 ML IV ONE (07:43)
[2020-06-08] MEDS ORDERED: VERAPAMIL 5 MG/2 ML (CALAN) VIAL IV ONE (07:43)
[2020-06-08] MEDS ORDERED: HEParin 1000 UNIT/ML (10ML VIAL) FOR BOLUS ONE (07:43)
--- NOTE | 2020-06-08 07:49 | Cardiac Procedure Note-CS/ASA ---
Pre-Procedure Note Pre-Op Procedure Note H&P Reviewed The H&P was reviewed, patient examined and no changes noted. Date H&P Reviewed: Jun 08, 2020 Time H&P Reviewed: 08:00 Conscious Sedation Pre-Proced Time 08:00 ASA Score 3 For ASA 3 and 4: Consider anesthesia and medical clearance. Also, for patients with a history of failed moderate sedation consider anesthesia. Airway Lungs Heart ASA score ASA 1: a normal healthy patient ASA 2: a patient with a mild systemic disease (mid diabetes, controlled hypertension, obesity x ASA 3: a patient with a severe systemic disease that limits activity (angina, COPD, prior Myocardial infarction) ASA 4: a patient with an incapacitating disease that is a constant threat to life (CHF, renal failure) ASA 5: a moribund patient not expected to survive 24 hrs. (ruptured aneurysm) ASA 6: a declared brain- patient whose organs are being harvested. For emergent operations, add the letter E after the classification Mallampati Classification Grade 3 Sedation Plan Analgesia, Amnesia, Plan communicated to team members, Discussed options with patient/fam, Discussed risks with patient/fam The patient is an appropriate candidate to undergo the planned procedure, sedation, and anesthesia. The patient immediately re-assessed prior to indication. ELIZABETH CHERRY MD Jun 08, 2020 07:49
[2020-06-08] MEDS ORDERED: MAGNESIUM OXIDE (MAG-OX)400 MG TAB PO SCH (08:00)
--- NOTE | 2020-06-08 08:29 | Cardiology Progress Note ---
Subjective Date Seen by Provider: Jun 08, 2020 Time Seen by Provider: 08:28 Subjective/Events-last exam Patient was seen and evaluated today, feeling better, still having chest pain with minimal exertion Review of Systems General: No Chills, No Night Sweats, No Fatigue, No Malaise, No Appetite, No Other HEENT: No Head Aches, No Visual Changes, No Eye Pain, No Ear Pain, No Dysphasia, No Sinus Congestion, No Post Nasal Drip, No Sore Throat, No Other Pulmonary: No Dyspnea, No Cough, No Pleuritic Chest Pain, No Other Cardiovascular: Chest Pain; No: Palpitations, Orthopnea, Paroxysmal Noc. Dyspnea, Edema, Lt Headedness, Other Objective-Cardiology Exam Last Set of Vital Signs Vital Signs 06/08/20 04:52 Temp 36.3 Pulse 60 Resp 16 B/P (MAP) 124/67 (86) Pulse Ox 99 O2 Delivery Room Air Capillary Refill : Less Than 3 Seconds I&O Intake and Output 06/08/20 00:00 Intake Total 1340 ml Balance 1340 ml Intake Oral 340 ml IV Total 1000 ml # Voids 1 Daily Weight Change No General: Alert, Oriented X3, Cooperative HEENT: Atraumatic, PERRLA Neck: Supple, No JVD, No Thyromegaly Lungs: Clear to Auscultation, Normal Air Movement Heart: Regular Rate, Normal S1, Normal S2, No Murmurs Abdomen: Normal Bowel Sounds, Soft, No Tenderness, No Hepatosplenomegaly, No Masses Extremities: No Clubbing, No Cyanosis, No Edema, Normal Pulses, No Tenderness/Swelling Skin: No Rashes, No Breakdown, No Significant Lesion Neuro: Normal Gait, Normal Speech, Strength at 5/5 X4 Ext, Normal Tone, Sensation Intact Psych/Mental Status: Mental Status NL, Mood NL Results Lab Laboratory Tests 06/07/20 14:25 A/P-Cardiology Admission Diagnosis Chest pain CAD HTN HLP Assessment/Plan Unstable angina, cardiac catheterization was carried out today on June 08, 2020 showing severe restenosis in the ostium of the LAD, I discussed with the patient the management plan, I will arrange for transfer for evaluation for CABG CAD, under went Card cath and PCI on 03/02/[address] Vora showing coronary artery disease primarily consisting of 95% ostial stenosis of the left anterior descending to just past origin of large D1 to which successful balloon angiopla sty was carried out with reduced the stenosis to less than 30%. Mild plaque in other cors. RCA dominant Patient had NSTEMI and underwent Card cath and PCI on 04/21/20 [facility] PTCA for 95% restenosis as site of PTCA in mid LAD, just past D1, reducing the lesion to less than 10% and with normal antegrade flow, LVEDP 12 mmHg, LVEF 50-55%. Maintained on ASA and Plavix. Patient reports compiance with medications HTN, restart home BP medications and continue to monitor Hyperlipidemia, maintained on Crestor. Evaluate lipid profile. Scleroderma, by history H/O rheumatic fever as a child Celiac dz H/o occular stroke Reported allergy to ASA (however, she has been taking ASA, per her report, without difficulty) - reports h/o convulsions Reported shellfish allergy H/O chronic joint pain d/t arthritis Family h/o premature CAD (brothers x2 and father) Clinical Quality Measures AMI/AHF: ASA po Prior to arrival: Yes ELIZABETH CHERRY MD Jun 08, 2020 08:29
[2020-06-08] MEDS ORDERED: NS IV 1000 ML 1,000 ML IV SCH (08:30)
--- NOTE | 2020-06-08 08:33 | Cardiac Cath Report ---
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 The patient signed the consent and then she was placed on the cardiac catheterization laboratory. Groin was prepped SL fashion local anesthesia was used. Sheath placed in the Right radial artery, [place] catheter advanced to the left ventricular cavity, left ventriculogram was done, pulled back to the coronary system and evaluated the right and left coronary system then pulled to the aortic arch and aortic arch angiogram was done in preparation for referral for CABG At the end of the procedure the sheath was removed. Vascular band was used FINDINGS: Hemodynamics LV 80/14, end-diastolic pressure of 40 Aorta 82/60 mean of 71 ANATOMY: Left Main Is free of obstructive disease Left Anterior Descending Has severe ostial restenosis otherwise mild disease Left Circumflex Has mild disease nonobstructive disease Right Coronory Artery Has mild aneurysmal dilatation proximally with mild disease at the midportion nonobstructive disease LV Gram Was done showing normal left ventricular size, systolic function is normal estimated ejection fraction 60% Aorta Evaluation done with aortic arch angiogram showing normal aortic arch, no dissection or aneurysm, normal origin of the great vessels of the neck including the innominate artery, left carotid and left subclavian arteries CONCLUSION: 1. Severe ostial LAD stenosis 2. Normal left ventricular systolic function estimate ejection fraction 60% 3. Normal aortic arch and great vessels of the neck DISCUSSION AND RECOMMENDATION: Patient will be transferred for evaluation for CABG Hospital course Patient was hospitalized and monitor overnight, cardiac catheterization showed severe restenosis of the ostium of the LAD, arrangement to transfer for evaluation for CABG was made Final diagnosis Unstable angina Coronary artery disease Hyperlipidemia Anesthesia Type: Conscious Sedation Estimated blood loss (mL): 10 ml Contrast Amount: 82 ml Total Radiation Dose: 636 mGy Post-Procedure Diagnosis Post-operative diagnosis: Unstable angina Coronary artery disease Hypertension Hyperlipidemia ELIZABETH CHERRY MD Jun 08, 2020 08:33
[2020-06-08 08:47] VITALS: BP 103/70
[2020-06-08] MEDS ORDERED: diphenhydrAMINE 25 MG TAB (BENADRYL) PO SCH ×2 (09:00→21:00)
[2020-06-08] MEDS ORDERED: FERROUS SULF 325 MG (IRON) TAB PO SCH (09:00)
[2020-06-08] MEDS ORDERED: ASPIRIN E.C. 325 MG (ECOTRIN) TABLET PO SCH (09:00)
[2020-06-08] MEDS ORDERED: ASPIRIN E.C. 81 MG (ECOTRIN) TAB PO SCH (09:00)
[2020-06-08] MEDS ORDERED: CLOPIDOGREL 75 MG (PLAVIX) TABLET PO SCH ×2 (09:00→21:00)
[2020-06-08 09:11] VITALS: BP 111/70
[2020-06-08 10:30] VITALS: BP 117/58
[2020-06-08 11:00] VITALS: BP 113/60
[2020-06-08] MEDS ORDERED: ROSU40TA23 PO (11:09)
[2020-06-08] MEDS ORDERED: OXYM-12 NS (11:09)
[2020-06-08] MEDS ORDERED: CHLO-159 PO (11:09)
[2020-06-08] MEDS ORDERED: LORA10TA7 PO (11:09)
--- NOTE | 2020-06-08 11:35 | Discharge Summary ---
Discharge Summary Hospital Course Was the Problem List Reviewed?: Yes Problems/Dx: (1) Unstable angina Hospital Course Date of Admission: Jun 07, 2020 at 15:07 Admission Diagnosis : Family Physician/Provider: Madison Capellan Casino Controller Date of Discharge: 06/08/20 Discharge Diagnosis: unstable angina sent for CABG Hospital Course: Brief course after admitted for CP and cath revealed the need for CABG and she was transferred to [facility]. Labs and Pending Lab Test: Laboratory Tests 06/07/20 14:25: White Blood Count 8.2, Red Blood Count 5.20H, Hemoglobin 15.0, Hematocrit 45, Mean Corpuscular Volume 86, Mean Corpuscular Hemoglobin 29, Mean Corpuscular Hemoglobin Concent 34, Red Cell Distribution Width 12.1, Platelet Count 313, Mean Platelet Volume 9.5, Immature Granulocyte % (Auto) 0, Neutrophils (%) ( Auto) 63, Lymphocytes (%) (Auto) 24, Monocytes (%) (Auto) 10, Eosinophils (%) (Auto) 3, Basophils (%) (Auto) 0, Neutrophils # (Auto) 5.1, Lymphocytes # (Auto) 2.0, Monocytes # (Auto) 0.8, Eosinophils # (Auto) 0.3, Basophils # (Auto) 0.0, Immature Granulocyte # (Auto) 0.0, Prothrombin Time 13.1, INR Comment 1.0, Activated Partial Thromboplast Time 33, Sodium Level 138, Potassium Level 4.2, Chloride Level 103, Carbon Dioxide Level 23, Anion Gap 12, Blood Urea Nitrogen 16, Creatinine 0.81, Estimat Glomerular Filtration Rate > 60, BUN/Creatinine Ratio 20, Glucose Level 115H, Calcium Level 9.0, Total Creatine Kinase 83, Creatine Kinase MB 3.1, Troponin I < 0.028 06/07/20 22:50: Troponin I < 0.028 Home Meds Active Reported Oxymetazoline HCl 30 Ml [place] 1-2 Sprays NS UD PRN Chlortabs (Chlorpheniramine Maleate) 4 Mg Tablet 4 Mg PO Q4H Loratadine 10 Mg Tablet 10 Mg PO DAILY Rosuvastatin Calcium 40 Mg Tablet 40 Mg PO HS Celexa (Citalopram Hydrobromide) 10 Mg Tablet 10 Mg PO HS Plavix (Clopidogrel Bisulfate) 75 Mg Tablet 75 Mg PO 1900 Metoprolol Succinate 50 Mg Tab.er.24h 50 Mg PO 1900 Diphenhydramine HCl 25 Mg Capsule 75 Mg PO HS TAKES 3 (25MG) CAPS Aspirin EC (Aspirin) 325 Mg Tablet.dr 650 Mg PO TID TAKES 2 (325MG) TABS Voltaren Arthritis Pain (Diclofenac Sodium) 20 Gm Gel..gram. 1 Applic TP PRN PRN APPLY TO SHOULDERS AND/OR KNEES Iron (Ferrous Sulfate) 325 Mg Tablet 325 Mg PO Q48H B Complex (Vitamin B Complex) 1 Each Tablet 1 Each PO Q48H Diphenhydramine HCl 25 Mg Capsule 25 Mg PO DAILY Magnesium (Magnesium Oxide) 250 Mg Tablet 250 Mg PO BID Assessment/Pt Instructions Sanchez for CABG Discharge Planning: <30 minutes discharge planning Discharge Instructions Discharge Diet: Cardiac Diet Discharge Physical Examination Vital Signs Vital Signs Date Time Temp Pulse Resp B/P (MAP) Pulse Ox O2 Delivery O2 Flow Rate FiO2 06/08/20 04:52 36.3 60 16 124/67 (86) 99 Room Air General Appearance: No Apparent Distress, WD/WN Allergies: Coded Allergies: nitrofurantoin (Verified Allergy, Severe, 03/02/20) shellfish derived (Verified Allergy, Severe, 03/02/20) atorvastatin (Verified Allergy, Intermediate, 03/02/20) pt states it makes her hurt all over/extreme pain Penicillins (Unverified Allergy, Mild, 06/09/08) codeine (Verified Allergy, Unknown, 03/02/20) Discharge Summary Date of Admission Jun 07, 2020 at 15:07 Date of Discharge Discharge Date: Jun 08, 2020 Admission Diagnosis Assessment: CP CAD SS HTN Plan: Cardiology consultation Clinical Quality Measures AMI/AHF: ASA po Prior to arrival: Yes LULU WAGNER DO Jun 08, 2020 11:35
[2020-06-08 11:36] VITALS: BP 113/60
[2020-06-08] MEDS ORDERED: ROSUVASTATIN 20 MG (CRESTOR) TABLET PO SCH (21:00)
[2020-06-08] MEDS ORDERED: meTOproloL SUCCINATE 50 MG (TOPROL XL) TAB PO SCH (21:00)
== END 2020-06-08 11:36 | disposition short-term general hospital (02) ==
LOC: EDUNIT# 14:15 → ER 14:17 → UNDOADMOB 15:07 → CSD 15:07 → CATH 16:01 → CSD 16:01 → CATH 06-08 11:36 → UNDODISOB 06-08 11:36
PROVIDERS: ATTEND Internal Medicine
DX: I25.110 Atherosclerotic heart disease of native coronary artery with unstable angina pectoris (principal); I10 Essential (primary) hypertension; E78.5 Hyperlipidemia, unspecified; J45.909 Unspecified asthma, uncomplicated; G43.909 Migraine, unspecified, not intractable, without status migrainosus; M06.9 Rheumatoid arthritis, unspecified; G89.29 Other chronic pain; F32.9 Major depressive disorder, single episode, unspecified; F41.9 Anxiety disorder, unspecified; Z87.2 Personal history of diseases of the skin and subcutaneous tissue; Z88.0 Allergy status to penicillin; Z88.8 Allergy status to other drugs, medicaments and biological substances; Z88.5 Allergy status to narcotic agent; Z91.013 Allergy to seafood; Z79.82 Long term (current) use of aspirin; Z79.02 Long term (current) use of antithrombotics/antiplatelets; Z79.899 Other long term (current) drug therapy; Z83.3 Family history of diabetes mellitus; Z82.61 Family history of arthritis
CPT/HCPCS: 36221; 71045; 80048; 82550; 82553; 84484; 85025; 85610; 85730; 93005 ×2; 93458; 99284; C1894; G0378; 36415

== ENCOUNTER 2020-06-26 17:53 | Observation (INO) | payer MEDICARE, MEDICAID ==
[~2020-06-26] VITALS: Ht 154 cm; Wt 93.0 kg
[~2020-06-26 17:53] MED LIST changes: +CHLO-159 PO; +CITA10TA12 PO; +LORA10TA7 PO; +OXYM-12 NS
--- NOTE | 2020-06-26 18:15 | ED Chest Pain ---
General Stated Complaint: CP/STENT PLACED 06/10 Source: patient Exam Limitations: no limitations History of Present Illness Date Seen by Provider: Jun 26, 2020 Time Seen by Provider: 17:56 Initial Comments Patient presents ER by private conveyance from home with her father and chief complaint of chest pain starting about 1530, 2-1/2 hours prior to arrival while walking through [employer]. She describes it as mostly pressure like someone is reaching into her chest and gripping her heart squeezing it says not as much pain as she has had in the past with heart attacks. The pressure radiates through to her left shoulder blade and some numbness goes down the back of her left upper extremity. She had a stent placed at [facility] by Dr. Street radially on June 10, 16 days ago. She says she was sent there by Dr. Vora her hydrostatic tester because he has stented the same place in her LAD twice and said she would need a CABG. Cardiology there said her vessels were too small for a CABG and attempted to stent it and said if it continues to be a problem she would have to go to the [facility]. She has an extensive family history including several stents in her father as well as a brother with 8+ stents and another brother who has already succumbed to coronary disease. She is not having shortness of breath cough fever chills. She does not smoke. She does have hypertension hyperlipidemia prior heart disease and has had 3 different heart caths. She is known to Dr. Rowland and [facility] for primary care. She took a 325 aspirin at the time her chest pain started but has not taken a nitroglycerin yet because she did not have access to her blood pressure. She is not having any palpitations or feeling of near syncope. She has a history of sclerosing disease Most recent cardiac catheterization from June 08, [address] Oden demonstrates left main free of obstructive disease, LAD has severe ostial restenosis otherwise mild disease. Left circumflex mild nonobstructive. Right coronary artery has mild aneurysmal dilatation proximally with mild disease in the midportion nonobstructive disease. EF of 60%. Normal aortogram without dissection or aneurysm. Normal origin of the great vessels of the neck including the innominate artery left carotid and left subclavian arteries. Allergies and Home Medications Allergies Coded Allergies: nitrofurantoin (Verified Allergy, Severe, 03/02/20) shellfish derived (Verified Allergy, Severe, 03/02/20) atorvastatin (Verified Allergy, Intermediate, 03/02/20) pt states it makes her hurt all over/extreme pain Penicillins (Unverified Allergy, Mild, 06/09/08) codeine (Verified Allergy, Unknown, 03/02/20) Home Medications Aspirin 325 Mg Tablet.dr, 650 MG PO TID, (Reported) TAKES 2 (325MG) TABS Chlorpheniramine Maleate 4 Mg Tablet, 4 MG PO Q4H, (Reported) Citalopram Hydrobromide 10 Mg Tablet, 10 MG PO HS, (Reported) Clopidogrel Bisulfate 75 Mg Tablet, 75 MG PO 1900, (Reported) Diclofenac Sodium 20 Gm Gel..gram., 1 APPLIC TP PRN PRN for PAIN-BREAKTHROUGH, (Reported) APPLY TO SHOULDERS AND/OR KNEES Diphenhydramine HCl 25 Mg Capsule, 25 MG PO DAILY, (Reported) Diphenhydramine HCl 25 Mg Capsule, 75 MG PO HS, (Reported) TAKES 3 (25MG) CAPS Ferrous Sulfate 325 Mg Tablet, 325 MG PO Q48H, (Reported) Loratadine 10 Mg Tablet, 10 MG PO DAILY, (Reported) Magnesium Oxide 250 Mg Tablet, 250 MG PO BID, (Reported) Metoprolol Succinate 50 Mg Tab.er.24h, 50 MG PO 1900, (Reported) Oxymetazoline HCl 30 Ml [place], 1-2 SPRAYS NS UD PRN for CONGESTION, (Reported) Rosuvastatin Calcium 40 Mg Tablet, 40 MG PO HS, (Reported) Vitamin B Complex 1 Each Tablet, 1 EACH PO Q48H, (Reported) Patient Home Medication List Home Medication List Reviewed: Yes Review of Systems Review of Systems Constitutional: No chills, No diaphoresis EENTM: No Blurred Vision, No Double Vision Respiratory: Denies Cough, Denies Shortness of Air Cardiovascular: See HPI, Chest Pain; Denies Edema, Denies Irregular Heart Rate, Denies Lightheadedness Gastrointestinal: Denies Constipated, Denies Diarrhea, Denies Nausea Genitourinary: Denies Burning, Denies Discharge Musculoskeletal: No back pain, No joint pain Psychiatric/Neurological: Denies Anxiety, Denies Depressed All Other Systems Reviewed Negative Unless Noted: Yes Past Tmbytzm-Fmklte-Seielp Hx Patient Social History Alcohol Use: Denies Use Smoking Status: Never a Smoker Recent Hopitalizations: No Seasonal Allergies Seasonal Allergies: Yes Past Medical History Surgeries: Yes (C-SPINE SURGERY; LEFT ELBOW ULNAR NERVE SURGERY) Gallbladder, Orthopedic Respiratory: No Asthma Cardiac: Yes High Cholesterol, Hypertension Neurological: Yes 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 Genitourinary: No Gastrointestinal: Yes (S/P CHOLECYSTECTOMY; CELIAC DISEASE) Gall Bladder Disease Musculoskeletal: Yes (SCLERODERMA; C-SPINE SURGERY; LEFT ELBOW ULNAR NERVE SURGERY) Rheumatoid Arthritis Endocrine: No HEENT: Yes (SINUS PROBLEMS) Cancer: No Psychosocial: Yes Anxiety, Depression Integumentary: No Psoriasis Blood Disorders: No Family Medical History Alcoholism G8 BROTHER, Onset:15's - 20 Arthritis 19 MOTHER, Onset:Adolescence G8 BROTHER, Onset:Adolescence G8 SISTER, Onset:25s - 30 Asthma G8 BROTHER Cataracts 19 FATHER, Onset:60 years & older Deafness or hearing loss 19 FATHER Dementia 19 FATHER Diabetes mellitus 19 MOTHER G8 BROTHER Hypertension 19 FATHER G8 BROTHER Myocardial infarction 19 FATHER, Onset:60 years & older G8 BROTHER, Onset:40's - 50 Psychosocial problem G8 BROTHER, Onset:25s - 30 Severe allergy 19 FATHER, Onset: 19 MOTHER, Onset:Childhood CAD Physical Exam Vital Signs Vital Signs - First Documented 06/26/20 17:54 Temp 37.1 Pulse 62 Resp 16 B/P (MAP) 135/60 (85) Pulse Ox 98 O2 Delivery Room Air O2 Flow Rate 62.00 Capillary Refill : Height, Weight, BMI Height: '" Weight: lbs. oz. kg; 43.64 BMI Method: General Appearance: WD/WN, Anxious, Mild Distress HEENT: PERRL/EOMI, Pharynx Normal, Moist Mucous Membranes Neck: Full Range of Motion, Normal Inspection, Non Tender Respiratory: Chest Non Tender, Lungs Clear, Normal Breath Sounds, No Accessory Muscle Use, No Respiratory Distress Cardiovascular: Regular Rate, Rhythm, No Edema Gastrointestinal: Normal Bowel Sounds, No Organomegaly, Non Tender, Soft Extremity: Normal Capillary Refill, Normal Inspection, No Pedal Edema Neurologic/Psychiatric: Alert, Oriented x3 Skin: Normal Color, Warm/Dry Progress/Results/Core Measures Results/Orders Lab Results Laboratory Tests Test 06/26/20 18:26 Range/Units White Blood Count 7.7 4.3-11.0 10^3/uL Red Blood Count 4.85 3.80-5.11 10^6/uL Hemoglobin 13.9 11.5-16.0 g/dL Hematocrit 41 35-52 % Mean Corpuscular Volume 85 80-99 fL Mean Corpuscular Hemoglobin 29 25-34 pg Mean Corpuscular Hemoglobin Concent 34 32-36 g/dL Red Cell Distribution Width 12.1 10.0-14.5 % Platelet Count 306 130-400 10^3/uL Mean Platelet Volume 10.3 9.0-12.2 fL Immature Granulocyte % (Auto) 0 % Neutrophils (%) (Auto) 57 42-75 % Lymphocytes (%) (Auto) 29 12-44 % Monocytes (%) (Auto) 10 0-12 % Eosinophils (%) (Auto) 3 0-10 % Basophils (%) (Auto) 0 0-10 % Neutrophils # (Auto) 4.4 1.8-7.8 10^3/uL Lymphocytes # (Auto) 2.2 1.0-4.0 10^3/uL Monocytes # (Auto) 0.8 0.0-1.0 10^3/uL Eosinophils # (Auto) 0.3 0.0-0.3 10^3/uL Basophils # (Auto) 0.0 0.0-0.1 10^3/uL Immature Granulocyte # (Auto) 0.0 0.0-0.1 10^3/uL Prothrombin Time 14.2 12.2-14.7 SEC INR Comment 1.1 0.8-1.4 Activated Partial Thromboplast Time 33 24-35 SEC Sodium Level 137 135-145 MMOL/L Potassium Level 4.2 3.6-5.0 MMOL/L Chloride Level 103 98-107 MMOL/L Carbon Dioxide Level 23 21-32 MMOL/L Anion Gap 11 5-14 MMOL/L Blood Urea Nitrogen 11 7-18 MG/DL Creatinine 0.81 0.60-1.30 MG/DL Estimat Glomerular Filtration Rate > 60 BUN/Creatinine Ratio 14 Glucose Level 99 70-105 MG/DL Calcium Level 9.3 8.5-10.1 MG/DL Corrected Calcium 9.3 8.5-10.1 MG/DL Magnesium Level 2.0 1.6-2.4 MG/DL Total Bilirubin 0.4 0.1-1.0 MG/DL Aspartate Amino Transf (AST/SGOT) 22 5-34 U/L Alanine Aminotransferase (ALT/SGPT) 26 0-55 U/L Alkaline Phosphatase 93 40-136 U/L Myoglobin 24.1 10.0-92.0 NG/ML Troponin I < 0.028 <0.028 NG/ML B-Type Natriuretic Peptide 37.5 <100.0 PG/ML Total Protein 6.9 6.4-8.2 GM/DL Albumin 4.0 3.2-4.5 GM/DL Vital Signs/I&O 06/26/20 17:54 Temp 37.1 Pulse 62 Resp 16 B/P (MAP) 135/60 (85) Pulse Ox 98 O2 Delivery Room Air O2 Flow Rate 62.00 Progress Progress Note #1: Time: 18:13 Progress Note She is still taking her Plavix and metoprolol as prescribed. The patient has already taken 324 mg of aspirin. Her initial blood pressure was 135/85 so she offered to take her home dose of nitroglycerin. Highly concerning for unstable angina after recent stent placement 2 weeks ago. Patient rates her pressure down from a 5 to a 4 after 1 dose of nitroglycerin. Progress Note #2: Time: 19:24 Progress Note Patient says her pressure is now radiating across the right side of her chest about the same as when she came in however her blood pressure is 105 systolic. She has not taken a second dose of nitroglycerin and was offered a couple milligrams of morphine which she declined stating it is not bad enough for morphine yet. Initial ECG Impression Date: Jun 26, 2020 Initial ECG Impression Time: 18:02 Initial ECG Rate: 63 Initial ECG Rhythm: Normal Sinus Initial ECG Intervals: Normal Initial ECG Impression: Normal, Nonspecific Changes Initial ECG Comparisson: Unchanged Comment PVC noted. Normal sinus rhythm without clinically relevant ST changes. Diagnostic Imaging Diagonstic Imaging: Xray Plain Films/CT/US/NM/MRI: chest Comments No acute cardiopulmonary process on 1 view chest x-ray. NAME: LUCILA BRENNER MED REC#: [id number] PT STATUS: REG ER : 1965 PHYSICIAN: LUIS SAHA APRN ADMIT DATE: 06/26/20/ER Draft Date of Exam:06/26/20 CHEST 1 VIEW, AP/PA ONLY INDICATION: Chest pain FINDINGS: The lungs are clear. No failure, effusion or pneumothorax. IMPRESSION: Negative. Dictated on workstation # [id number] Dict: 06/26/201821 Trans: 06/26/201826 [facility] [id number] Interpreted by: MARLYS SNELL Electronically signed by: Reviewed: Reviewed by Me Departure Communication (Admissions) Time/Spoke to Admitting Phy: 19:30 Discussed the case with Dr. Fulton and she agrees to observe the patient with cardiac consultation. Time/Spoke to Consulting Phy: 19:25 Discussed the case with Dr. Vora and he agrees with keeping the patient here so he can do some further investigation. Morphine for pain. Aspirin Plavix and weight-based Lovenox. Impression Primary Impression: Unstable angina Disposition: ADMITTED INPATIENT Condition: Stable Admissions Decision to Admit Reason: Admit from ER (General) Decision to Admit/Date: Jun 26, 2020 Time/Decision to Admit Time: 19:00 Departure-Patient Inst. Referrals: [facility] (PCP) Primary Care Physician ROSI CABRERA APRN (Family) Primary Care Physician JORDI AGUILAR Jun 26, 2020 18:15
--- NOTE | 2020-06-26 18:27 | Diagnostic Imaging Report ---
INDICATION: Chest pain FINDINGS: The lungs are clear. No failure, effusion or pneumothorax. IMPRESSION: Negative. Dictated by: Dictated on workstation # [id number]
[2020-06-26 18:33] LABS: BASOPHILS % (AUTO) 0 % (0-10); EOSINOPHILS # (AUTO) 0.3 10^3/uL (0.0-0.3); EOSINOPHILS % (AUTO) 3 % (0-10); HEMATOCRIT 41 % (35-52); HEMOGLOBIN 13.9 g/dL (11.5-16.0); LYMPHOCYTES # (AUTO) 2.2 10^3/uL (1.0-4.0); LYMPHOCYTES % (AUTO) 29 % (12-44); MEAN CORPUSCULAR HEMOGLOBIN 29 pg (25-34); MEAN CORPUSCULAR HGB CONC 34 g/dL (32-36); MEAN CORPUSCULAR VOLUME 85 fL (80-99); MEAN PLATELET VOLUME 10.3 fL (9.0-12.2); MONOCYTES # (AUTO) 0.8 10^3/uL (0.0-1.0); MONOCYTES % (AUTO) 10 % (0-12); NEUTROPHILS # (AUTO) 4.4 10^3/uL (1.8-7.8); NEUTROPHILS % (AUTO) 57 % (42-75); PLATELET COUNT 306 10^3/uL (130-400); WHITE BLOOD COUNT 7.7 10^3/uL (4.3-11.0)
[2020-06-26 18:46] LABS: INR 1.1 (0.8-1.4); PROTHROMBIN TIME PATIENT 14.2 SEC (12.2-14.7)
[2020-06-26 18:54] LABS: ALANINE AMINOTRANSFERASE 26 U/L (0-55); ALKALINE PHOSPHATASE 93 U/L (40-136); BILIRUBIN,TOTAL 0.4 MG/DL (0.1-1.0); BUN/CREATININE RATIO 14; CALCIUM 9.3 MG/DL (8.5-10.1); CARBON DIOXIDE 23 MMOL/L (21-32); CHLORIDE 103 MMOL/L (98-107); CREATININE SERUM 0.81 MG/DL (0.60-1.30); GFR ESTIMATED > 60; GLUCOSE 99 MG/DL (70-105); POTASSIUM 4.2 MMOL/L (3.6-5.0); SODIUM 137 MMOL/L (135-145); TOTAL PROTEIN 6.9 GM/DL (6.4-8.2)
[2020-06-26] MEDS ORDERED: ENOXAPARIN 100 MG/1 ML (LOVENOX) SYR SC ONE (19:45)
[2020-06-26 20:57] VITALS: BP 115/69
[2020-06-26] MEDS ORDERED: RT-ALBUTEROL SULF 2.5 MG/3 ML PRE-MIX VIAL INH PRN (21:00)
[2020-06-26] MEDS ORDERED: NITROGLYCERIN 0.4 MG SL TABS BTL 25'S SL PRN (21:30)
[2020-06-26] MEDS ORDERED: ONDANSETRON 4 MG/2 ML (SDV) Z0FRAN IVP PRN (21:30)
[2020-06-26] MEDS ORDERED: morphine INJ 4 MG/ML 1 ML (VIAL/SYRINGE) IV PRN (21:30)
[2020-06-27 00:58] LABS: BASOPHILS % (AUTO) 0 % (0-10); EOSINOPHILS # (AUTO) 0.3 10^3/uL (0.0-0.3); EOSINOPHILS % (AUTO) 4 % (0-10); HEMATOCRIT 38 % (35-52); HEMOGLOBIN 13.2 g/dL (11.5-16.0); LYMPHOCYTES # (AUTO) 2.1 10^3/uL (1.0-4.0); LYMPHOCYTES % (AUTO) 25 % (12-44); MEAN CORPUSCULAR HEMOGLOBIN 29 pg (25-34); MEAN CORPUSCULAR HGB CONC 35 g/dL (32-36); MEAN CORPUSCULAR VOLUME 84 fL (80-99); MEAN PLATELET VOLUME 10.3 fL (9.0-12.2); MONOCYTES # (AUTO) 0.9 10^3/uL (0.0-1.0); MONOCYTES % (AUTO) 10 % (0-12); NEUTROPHILS % (AUTO) 60 % (42-75); PLATELET COUNT 264 10^3/uL (130-400); WHITE BLOOD COUNT 8.3 10^3/uL (4.3-11.0)
[2020-06-27 01:21] LABS: ALANINE AMINOTRANSFERASE 26 U/L (0-55); ALBUMIN 3.5 GM/DL (3.2-4.5); ALKALINE PHOSPHATASE 82 U/L (40-136); BILIRUBIN,TOTAL 0.3 MG/DL (0.1-1.0); BUN/CREATININE RATIO 17; CALCIUM 8.6 MG/DL (8.5-10.1); CARBON DIOXIDE 25 MMOL/L (21-32); CHLORIDE 105 MMOL/L (98-107); CREATININE SERUM 0.78 MG/DL (0.60-1.30); GFR ESTIMATED > 60; GLUCOSE 117 MG/DL (70-105); PHOSPHORUS 3.6 MG/DL (2.3-4.7); POTASSIUM 3.7 MMOL/L (3.6-5.0); SODIUM 140 MMOL/L (135-145)
[2020-06-27 01:22] LABS: CHOLESTEROL 111 MG/DL (< 200); HDL CHOLESTEROL 28 MG/DL (40-60); TRIGLYCERIDES 207 MG/DL (<150); VLDL CHOLESTEROL 41 MG/DL (5-40)
[2020-06-27] MEDS ORDERED: MAGNESIUM 1 GM/100 ML IVPB 100 ML IV SCH (06:00)
[2020-06-27] MEDS ORDERED: POTASSIUM CL 10MEQ/50ML IVPB 50 ML IV SCH (06:00)
[2020-06-27] MEDS ORDERED: KCL 20 MEQ TAB (K-DUR) PO SCH (06:00)
--- NOTE | 2020-06-27 07:33 | Diagnostic Imaging Report ---
INDICATION: Unstable angina. TECHNIQUE: Single view chest 2:29 AM. CORRELATION STUDY: 06/26/2020 FINDINGS: The heart size, mediastinal configuration and pulmonary vascularity are within normal limits. The lungs are clear with no consolidating infiltrate. There is no significant effusion or pneumothorax. Cervical thoracic spinal fusion hardware. IMPRESSION: 1. Negative for acute abnormality of the chest. Dictated by: Dictated on workstation # [id number]
[2020-06-27] MEDS ORDERED: ENOXAPARIN 100 MG/1 ML (LOVENOX) SYR SC SCH (08:00)
--- NOTE | 2020-06-27 08:34 | Consultation-Cardiology ---
HPI-Cardiology Cardiology Consultation: Date of Consultation 06/27/20 Time Seen by a Provider: 08:15 Date of Admission 06-26-20 Attending Physician Margi Smalls MD Admitting Physician [facility] Consulting Physician Mary Vora MD HPI: Chief Complaint: Angina Ms. Garcia is a 54 yr old female admitted to ICU 11 from the ED with c/o CP. She reports she went to [employer] yesterday evening and while walking through the store she developed left sided, squeezing chest pressure which would radiate across her chest and into her right jaw. She reports diaphoresis, lightheadedness and SOB with the discomfort. She states it would resolve with rest and return with any amt of physical exertion. She states she was transferred from this facility on June 10, 2020 following cardiac cath by Dr. Oden to [facility] for evaluation for CABG. She reports she was told her vessels were too small to bypass and she underwent stent placement by Dr. Shi. She states she has been compliant with her medications, Plavix and ASA. She states she continues to have chest pain this morning with any amt of movement. No c/o LE swelling. No c/o fever or chills. Review of Systems-Cardiology Review of Systems Constitutional: No chills, No fever; lightheadedness Eyes: No vision change Ears/Nose/Throat: No epistaxis, No ulcerations Respiratory: As described under HPI Cardiovascular: As described under HPI Gastrointestinal: As described under HPI Genitourinary: No dysuria, No hematuria Skin: No rash on exposed areas, No ulcerations on exposed areas Psychiatric/Neurological: anxiety; No depression, No seizure, No focal weakness, No syncope Hematologic: No bleeding abnormalities All Other Systems Reviewed Negative Unless Noted: Yes ZMS-[id number]-Biccdp Hx Patient Social History Smoking Status: Never a Smoker Have you traveled recently?: No Alcohol Use?: No Pt feels they are or have been: No Past Medical History PMH As described under Assessment. Family Medical History Family Medical History: Family h/o father having CAD sisi his 50's. Reports brothers x 2 having CAD and OK's in thier 40's. Family History: Alcoholism G8 BROTHER, Onset:15's - 20 Arthritis 19 MOTHER, Onset:Adolescence G8 BROTHER, Onset:Adolescence G8 SISTER, Onset:25's - 30 Asthma G8 BROTHER Cataracts 19 FATHER, Onset:60 years & older Deafness or hearing loss 19 FATHER Dementia 19 FATHER Diabetes mellitus 19 MOTHER G8 BROTHER Hypertension 19 FATHER G8 BROTHER Myocardial infarction 19 FATHER, Onset:60 years & older G8 BROTHER, Onset:40's - 50 Psychosocial problem G8 BROTHER, Onset:25's - 30 Severe allergy 19 FATHER, Onset: 19 MOTHER, Onset:Childhood Allergies and Home Medications Allergies Coded Allergies: nitrofurantoin (Verified Allergy, Severe, 03/02/20) shellfish derived (Verified Allergy, Severe, 03/02/20) atorvastatin (Verified Allergy, Intermediate, 03/02/20) pt states it makes her hurt all over/extreme pain Penicillins (Unverified Allergy, Mild, 06/09/08) codeine (Verified Allergy, Unknown, 03/02/20) Home Medications Aspirin 325 Mg Tablet.dr, 650 MG PO TID, (Reported) TAKES 2 (325MG) TABS Chlorpheniramine Maleate 4 Mg Tablet, 4 MG PO Q4H, (Reported) Citalopram Hydrobromide 10 Mg Tablet, 10 MG PO HS, (Reported) Clopidogrel Bisulfate 75 Mg Tablet, 75 MG PO 1900, (Reported) Diclofenac Sodium 20 Gm Gel..gram., 1 APPLIC TP PRN PRN for PAIN-BREAKTHROUGH, (Reported) APPLY TO SHOULDERS AND/OR KNEES Diphenhydramine HCl 25 Mg Capsule, 25 MG PO DAILY, (Reported) Diphenhydramine HCl 25 Mg Capsule, 75 MG PO HS, (Reported) TAKES 3 (25MG) CAPS Ferrous Sulfate 325 Mg Tablet, 325 MG PO Q48H, (Reported) Loratadine 10 Mg Tablet, 10 MG PO DAILY, (Reported) Magnesium Oxide 250 Mg Tablet, 250 MG PO BID, (Reported) Metoprolol Succinate 50 Mg Tab.er.24h, 50 MG PO 1900, (Reported) Oxymetazoline HCl 30 Ml [place], 1-2 SPRAYS NS UD PRN for CONGESTION, (Reported) Rosuvastatin Calcium 40 Mg Tablet, 40 MG PO HS, (Reported) Vitamin B Complex 1 Each Tablet, 1 EACH PO Q48H, (Reported) Physical Exam-Cardiology Physical Exam Vital Signs/I&O 06/26/20 06/26/20 06/26/20 06/26/20 20:30 20:40 20:48 20:57 Temp 36.2 36.9 Pulse 61 56 57 71 Resp 14 23 B/P (MAP) 110/76 (87) 100/87 (91) Pulse Ox 100 99 98 O2 Delivery Room Air Room Air FiO2 21 06/26/20 06/26/20 06/26/20 06/26/20 21:00 21:15 21:30 21:45 Pulse 54 56 59 61 Resp 20 16 13 B/P (MAP) 108/59 (77) 109/55 (74) 110/59 (84) 119/57 (77) Pulse Ox 99 97 98 97 O2 Delivery Room Air Room Air Room Air Room Air 06/26/20 06/26/20 06/26/20 06/26/20 22:00 23:00 23:15 23:59 Pulse 61 60 59 Resp 11 16 15 B/P (MAP) 101/75 (84) 85/44 (58) 90/44 (59) Pulse Ox 96 95 96 100 O2 Delivery Room Air Room Air Room Air Room Air 06/27/20 06/27/20 06/27/20 06/27/20 00:00 00:15 01:00 01:00 Pulse 60 61 64 64 Resp 16 16 17 B/P (MAP) 84/51 (62) 93/40 (57) 99/48 (65) Pulse Ox 96 96 96 O2 Delivery Room Air Room Air Room Air 06/27/20 06/27/20 06/27/20 06/27/20 02:00 03:00 04:00 04:00 Pulse 62 65 66 Resp 17 13 14 B/P (MAP) 93/46 (62) 96/52 (67) 94/47 (63) Pulse Ox 95 96 100 94 O2 Delivery Room Air Room Air Room Air Room Air 06/27/20 06/27/20 06/27/20 06/27/20 05:00 06:00 06:51 07:54 Temp 36.6 Pulse 70 70 69 Resp 18 15 B/P (MAP) 100/54 (69) 104/54 (71) Pulse Ox 95 96 O2 Delivery Room Air Room Air 06/27/20 08:00 Pulse 66 Resp 18 B/P (MAP) 114/57 (76) Pulse Ox 96 O2 Delivery Room Air 06/27/20 00:00 Intake Total 200 ml Output Total 150 ml Balance 50 ml Capillary Refill : Less Than 3 Seconds Constitutional: AAO x 3, well-developed, well-nourished HEENT: PERRL, hearing is well preserved, oral hygience is good Neck: No carotid bruit; carotid pulses are 2 + bilaterally Respiratory: No accessory muscle use, No respiratory distress; chest expansion is symmetric, chest is bilaterally symmetric, lungs clear to auscultation Cardiovascular: regular rate-rhythm; No JVD; S1 and S2 Gastrointestinal: No tender; soft, round, audible bowel sounds Extremities: no lower extremity edema bilateral Neurologic/Psychiatric: grossly intact (moves all extremities) Skin: No rash on exposed areas, No ulcerations on exposed areas Data Review Labs Laboratory Tests 06/26/20 18:26: White Blood Count 7.7, Red Blood Count 4.85, Hemoglobin 13.9, Hematocrit 41, M byron Corpuscular Volume 85, Mean Corpuscular Hemoglobin 29, Mean Corpuscular Hemoglobin Concent 34, Red Cell Distribution Width 12.1, Platelet Count 306, Mean Platelet Volume 10.3, Immature Granulocyte % (Auto) 0, Neutrophils (%) (Auto) 57, Lymphocytes (%) (Auto) 29, Monocytes (%) (Auto) 10, Eosinophils (%) (Auto) 3, Basophils (%) (Auto) 0, Neutrophils # (Auto) 4.4, Lymphocytes # (Auto) 2.2, Monocytes # (Auto) 0.8, Eosinophils # (Auto) 0.3, Basophils # (Auto) 0.0, Immature Granulocyte # (Auto) 0.0, Prothrombin Time 14.2, INR Comment 1.1, Activated Partial Thromboplast Time 33, Sodium Level 137, Potassium Level 4.2, Chloride Level 103, Carbon Dioxide Level 23, Anion Gap 11, Blood Urea Nitrogen 11, Creatinine 0.81, Estimat Glomerular Filtration Rate > 60, BUN/Creatinine Ratio 14, Glucose Level 99, Calcium Level 9.3, Corrected Calcium 9.3, Magnesium Level 2.0, Total Bilirubin 0.4, Aspartate Amino Transf (AST/SGOT) 22, Alanine Aminotransferase (ALT/SGPT) 26, Alkaline Phosphatase 93, Myoglobin 24.1, Troponin I < 0.028, B-Type Natriuretic Peptide 37.5, Total Protein 6.9, Albumin 4.0 06/27/20 00:50: White Blood Count 8.3, Red Blood Count 4.54, Hemoglobin 13.2, Hematocrit 38, Mean Corpuscular Volume 84, Mean Corpuscular Hemoglobin 29, Mean Corpuscular Hemoglobin Concent 35, Red Cell Distribution Width 12.2, Platelet Count 264, Mean Platelet Volume 10.3, Immature Granulocyte % (Auto) 0, Neutrophils (%) (Auto) 60, Lymphocytes (%) (Auto) 25, Monocytes (%) (Auto) 10, Eosinophils (%) (Auto) 4, Basophils (%) (Auto) 0, Neutrophils # (Auto) 5.0, Lymphocytes # (Auto) 2.1, Monocytes # (Auto) 0.9, Eosinophils # (Auto) 0.3, Basophils # (Auto) 0.0, Immature Granulocyte # (Auto) 0.0, Sodium Level 140, Potassium Level 3.7, Chloride Level 105, Carbon Dioxide Level 25, Anion Gap 10, Blood Urea Nitrogen 13, Creatinine 0.78, Estimat Glomerular Filtration Rate > 60, BUN/Creatinine Ratio 17, Glucose Level 117H, Calcium Level 8.6, Corrected Calcium 9.0, M agnesium Level 2.0, Total Bilirubin 0.3, Aspartate Amino Transf (AST/SGOT) 22, Alanine Aminotransferase (ALT/SGPT) 26, Alkaline Phosphatase 82, Troponin I < 0.028, Total Protein 6.0L, Albumin 3.5, Phosphorus Level 3.6, Triglycerides Level 207H, Cholesterol Level 111, LDL Cholesterol Direct 57, VLDL Cholesterol 41H, HDL Cholesterol 28L 06/27/20 06:43: Troponin I < 0.028 Laboratory Tests 06/26/20 18:26 06/27/20 00:50 Radiology NAME: LUCILA GARCIA [facility] REC#: [id number] PT STATUS: ADM Moises : 1965 PHYSICIAN: MARGI SMALLS MD ADMIT DATE: 06/26/20/ICU Signed Date of Exam:06/27/20 CHEST 1 VIEW, AP/PA ONLY INDICATION: Unstable angina. TECHNIQUE: Single view chest 2:29 AM. CORRELATION STUDY: 06/26/2020 FINDINGS: The heart size, mediastinal configuration and pulmonary vascularity are within normal limits. The lungs are clear with no consolidating infiltrate. There is no significant effusion or pneumothorax. Cervical thoracic spinal fusion hardware. IMPRESSION: 1. Negative for acute abnormality of the chest. Dictated by: Dictated on workstation # [id number] Dict: 06/27/2031 Trans: 06/27/20 0732 DO [id number] Interpreted by: NORI BAUTISTA DO Electronically signed by: NORI BAUTISTA DO 06/27/20 0732 ECG Impression ECG Initial ECG Rhythm: Normal Sinus A/P-Cardiology Assessment/Admission Diagnosis Angina H/O Ac NSTEMI on 04/20/20, treated with PCI (see below) CAD - Card cath and PCI on 03/02/20: Coronary artery disease primarily consisting of 95% ostial stenosis of the left anterior descending to just past origin of large D1 to which successful balloon angioplasty was carried out with reduced the stenosis to less than 30%. Mild plaque in other cors. RCA dominant - Card cath and PCI on 04/21/20: PTCA for 95% restenosis as site of PTCA in mid LAD, just past D1, reducing the lesion to less than 10% and with normal a ntegrade flow, LVEDP 12 mmHg, LVEF 50-55% - Cardiac cath on 06-08-[address] Oden: Severe ostial LAD stenosis. Normal left ventricular systolic function estimate ejection fraction 60%. Normal aortic arch and great vessels of the neck - Reports recent cardiac cath with PCI on 06-10-[address] Shi at [facility] HTN Scleroderma, by history H/O rheumatic fever as a child Celiac dz HLD H/o occular stroke Reported allergy to ASA (however, she has been taking ASA, per her report, without difficulty) - reports h/o convulsions Reported shellfish allergy H/O chronic joint pain d/t arthritis Family h/o premature CAD (brothers x2 and father) Discussion and Recomendations She is reporting symptoms consistent with angina. She continues to report chest pain this morning therefore based on her continuing instability of symptoms and h/o known CAD with previous multiple intervention we advise emergent cardiac cath. We have disucussed the proceedure, risks, benefits of cardiac cath with possible PCI. She verbalizes understanding and provides informed consent. We will continue DAPT Continue statin and BB Further recs will be based on her hospital course We would like to thank medical services for this consult Clinical Quality Measures AMI/AHF: ASA po Prior to arrival: Yes (325MG) GERARD NOLASCO Jun 27, 2020 08:34
[2020-06-27] MEDS ORDERED: NS IV 1000 ML 1,000 ML IV SCH ×2 (08:45→15:00)
[2020-06-27] MEDS ORDERED: methylPREDNISolone 125 MG (Solu-MEDROL) VIAL IV SCH (08:45)
[2020-06-27] MEDS ORDERED: diphenhydrAMINE 25 MG TAB (BENADRYL) PO SCH (08:45)
[2020-06-27] MEDS ORDERED: FAMOTIDINE 20 MG (PEPCID) TABLET PO SCH (08:45)
[2020-06-27] MEDS ORDERED: ASPIRIN E.C. 81 MG (ECOTRIN) TAB PO SCH (09:00)
[2020-06-27] MEDS ORDERED: meTOproloL SUCCINATE 50 MG (TOPROL XL) TAB PO SCH (09:00)
[2020-06-27] MEDS ORDERED: CLOPIDOGREL 75 MG (PLAVIX) TABLET PO SCH (09:00)
[2020-06-27] MEDS ORDERED: LISI2.5T PO (09:54)
[2020-06-27] MEDS ORDERED: PANT40TA52 PO (09:54)
[2020-06-27] MEDS ORDERED: FLUT9.9S NSEACH (09:54)
[2020-06-27] MEDS ORDERED: NITR0.4T39 SL (09:54)
[2020-06-27] MEDS ORDERED: LIDOCAINE 1% INJ 20 ML 20 ML VIAL ONE (10:07)
[2020-06-27] MEDS ORDERED: HEParin (CATH LAB) 2,000 ML IV ONE (10:07)
[2020-06-27] MEDS ORDERED: MIDAZOLAM 5 MG/5 ML (VERSED) VIAL ONE (14:04)
[2020-06-27] MEDS ORDERED: methylPREDNISolone 125 MG (Solu-MEDROL) VIAL ONE (14:04)
[2020-06-27] MEDS ORDERED: diphenhydrAMINE 50 MG/ML INJ (BENADRYL) ONE (14:04)
[2020-06-27] MEDS ORDERED: fentaNYL INJ 100 MCG/2 ML AMP ONE (14:04)
[2020-06-27] MEDS ORDERED: PATIENT MAY USE OWN MEDS, ALL PO SCH (15:00)
[2020-06-27] MEDS ORDERED: ACETAMINOPHEN 325 MG TABLET PO PRN (15:15)
--- NOTE | 2020-06-27 15:15 | Consultation-Cardiology ---
HPI-Cardiology Cardiology Consultation: Date of Consultation 06/27/20 Time Seen by a Provider: 14:15 Date of Admission Attending Physician Gilda Fulton MD Admitting Physician [facility] Consulting Physician SERENITY NINO MD, MA, FACP, FACC, FSCAI, CCDS HPI: Chief Complaint: CC: Chest pain HPI Ms. Garcia is a 54 yr old female admitted to ICU 11 from the ED with c/o CP. She reports she went to [employer] yesterday evening and while walking through the store she developed left sided, squeezing chest pressure which would radiate across her chest and into her right jaw. She reports diaphoresis, lightheadedness and SOB with the discomfort. She states it would resolve with rest and return with any amt of physical exertion. She states she was transferred from this facility on June 10, 2020 following cardiac cath by Dr. Oden to [facility] for evaluation for CABG. She reports she was told her vessels were too small to bypass and she underwent stent placement by Dr. Shi. She states she has been compliant with her medications, Plavix and ASA. She states she continues to have chest pain this morning with any amt of movement. No c/o LE swelling. No c/o fever or chills. Review of Systems-Cardiology Review of Systems Constitutional: No chills, No fever; lightheadedness Eyes: No vision change Ears/Nose/Throat: No epistaxis, No ulcerations Respiratory: As described under HPI Cardiovascular: As described under HPI Gastrointestinal: As described under HPI Genitourinary: No dysuria, No hematuria Skin: No rash on exposed areas, No ulcerations on exposed areas Psychiatric/Neurological: anxiety; No depression, No seizure, No focal weakness, No syncope Hematologic: No bleeding abnormalities All Other Systems Reviewed Negative Unless Noted: Yes KAJ-Vkaacq-Lzqgzs Hx Patient Social History Smoking Status: Never a Smoker Have you traveled recently?: No Alcohol Use?: No Pt feels they are or have been: No Past Medical History PMH As described under Assessment. Family Medical History Family Medical History: Family h/o father having CAD sisi his 50's. Reports brothers x 2 having CAD and FL's in thier 40's. Family History: Alcoholism G8 BROTHER, Onset:15's - 20 Arthritis 19 MOTHER, Onset:Adolescence G8 BROTHER, Onset:Adolescence G8 SISTER, Onset:25's - 30 Asthma G8 BROTHER Cataracts 19 FATHER, Onset:60 years & older Deafness or hearing loss 19 FATHER Dementia 19 FATHER Diabetes mellitus 19 MOTHER G8 BROTHER Hypertension 19 FATHER G8 BROTHER Myocardial infarction 19 FATHER, Onset:60 years & older G8 BROTHER, Onset:40's - 50 Psychosocial problem G8 BROTHER, Onset:25's - 30 Severe allergy 19 FATHER, Onset: 19 MOTHER, Onset:Childhood Allergies and Home Medications Allergies Coded Allergies: nitrofurantoin (Verified Allergy, Severe, 03/02/20) shellfish derived (Verified Allergy, Severe, 03/02/20) atorvastatin (Verified Allergy, Intermediate, 03/02/20) pt states it makes her hurt all over/extreme pain Penicillins (Unverified Allergy, Mild, 06/09/08) codeine (Verified Allergy, Unknown, 03/02/20) Home Medications Aspirin 325 Mg Tablet.dr, 650 MG PO BID, (Reported) TAKES 2 (325MG) TABS Last Action: Reviewed Chlorpheniramine Maleate 4 Mg Tablet, 4 MG PO Q4H PRN for ALLERGY SYMPTOMS, (Reported) Last Action: Reviewed Citalopram Hydrobromide 10 Mg Tablet, 10 MG PO HS, (Reported) Last Action: Reviewed Clopidogrel Bisulfate 75 Mg Tablet, 75 MG PO DAILY, (Reported) Last Action: Reviewed Diclofenac Sodium 20 Gm Gel..gram., 1 APPLIC TP PRN PRN for PAIN-BREAKTHROUGH, (Reported) APPLY TO SHOULDERS AND/OR KNEES Last Action: Reviewed Diphenhydramine HCl 25 Mg Capsule, 25 MG PO QID, (Reported) Last Action: Reviewed Ferrous Sulfate 325 Mg Tablet, 325 MG PO DAILY, (Reported) Last Action: Reviewed Fluticasone Propionate 9.9 Ml [place].susp, 1 SPRAY NSEACH BID PRN for CONGESTION, (Reported) Last Action: Reviewed Lisinopril 2.5 Mg Tablet, 2.5 MG PO DAILY, (Reported) Last Action: Reviewed Loratadine 10 Mg Tablet, 10 MG PO DAILY PRN for ALLERGY SYMPTOMS, (Reported) Last Action: Reviewed Magnesium Oxide 250 Mg Tablet, 250 MG PO BID, (Reported) Last Action: Reviewed Metoprolol Succinate 50 Mg Tab.er.24h, 50 MG PO 1900, (Reported) Last Action: Reviewed Nitroglycerin 0.4 Mg Tab.subl, 0.4 MG SL UD PRN for CHEST PAIN, (Reported) Last Action: Reviewed Oxymetazoline HCl 30 Ml [place], 1-2 SPRAYS NS UD PRN for CONGESTION, (Reported) Last Action: Reviewed Pantoprazole Sodium 40 Mg Tablet.dr, 40 MG PO DAILY, (Reported) Last Action: Reviewed Rosuvastatin Calcium 40 Mg Tablet, 40 MG PO HS, (Reported) Last Action: Reviewed Vitamin B Complex 1 Each Tablet, 1 EACH PO DAILY, (Reported) Last Action: Reviewed Patient Home Medication List Home Medication List Reviewed: Yes Physical Exam-Cardiology Physical Exam Vital Signs/I&O 06/27/20 06/27/20 06/27/20 06/27/20 04:00 04:00 05:00 06:00 Pulse 66 70 70 Resp 14 18 15 B/P (MAP) 94/47 (63) 100/54 (69) 104/54 (71) Pulse Ox 100 94 95 96 O2 Delivery Room Air Room Air Room Air Room Air 06/27/20 06/27/20 06/27/20 06/27/20 06:51 07:00 07:54 08:00 Temp 36.6 Pulse 69 69 Resp 16 B/P (MAP) 110/58 (75) Pulse Ox 95 95 O2 Delivery Room Air Room Air 06/27/20 06/27/20 06/27/20 06/27/20 08:00 09:00 11:00 11:17 Temp 36.0 Pulse 66 69 65 Resp 18 11 16 B/P (MAP) 114/57 (76) 103/60 (74) 100/58 (72) Pulse Ox 96 97 96 O2 Delivery Room Air Room Air Room Air 06/27/20 06/27/20 06/27/20 06/27/20 12:00 12:00 12:43 13:00 Pulse 65 66 56 Resp 15 10 B/P (MAP) 99/61 (74) 100/58 (72) Pulse Ox 95 96 96 O2 Delivery Room Air Room Air Room Air 06/27/20 14:00 Pulse 64 Resp 14 B/P (MAP) 104/58 (73) Pulse Ox 96 O2 Delivery Room Air 06/27/20 00:00 Intake Total 200 ml Output Total 150 ml Balance 50 ml Capillary Refill : Less Than 3 Seconds Constitutional: AAO x 3, well-developed, well-nourished HEENT: PERRL, hearing is well preserved, oral hygience is good Neck: No carotid bruit; carotid pulses are 2 + bilaterally Respiratory: No accessory muscle use, No respiratory distress; chest expansion is symmetric, chest is bilaterally symmetric, lungs clear to auscultation Cardiovascular: regular rate-rhythm; No JVD; S1 and S2 Gastrointestinal: No tender; soft, round, audible bowel sounds Extremities: no lower extremity edema bilateral Neurologic/Psychiatric: grossly intact (moves all extremities) Skin: No rash on exposed areas, No ulcerations on exposed areas Data Review Labs Laboratory Tests 06/26/20 18:26: White Blood Count 7.7, Red Blood Count 4.85, Hemoglobin 13.9, Hematocrit 41, Mean Corpuscular Volume 85, Mean Corpuscular Hemoglobin 29, Mean Corpuscular Hemoglobin Concent 34, Red Cell Distribution Width 12.1, Platelet Count 306, Mean Platelet Volume 10.3, Immature Granulocyte % (Auto) 0, Neutrophils (%) (Auto) 57, Lymphocytes (%) (Auto) 29, Monocytes (%) (Auto) 10, Eosinophils (%) (Auto) 3, Basophils (%) (Auto) 0, Neutrophils # (Auto) 4.4, Lymphocytes # (Auto) 2.2, Monocytes # (Auto) 0.8, Eosinophils # (Auto) 0.3, Basophils # (Auto) 0.0, Immature Granulocyte # (Auto) 0.0, Prothrombin Time 14.2, INR Comment 1.1, Activated Partial Thromboplast Time 33, Sodium Level 137, Potassium Level 4.2, Chloride Level 103, Carbon Dioxide Level 23, Anion Gap 11, Blood Urea Nitrogen 11, Creatinine 0.81, Estimat Glomerular Filtration Rate > 60, BUN/Creatinine Ratio 14, Glucose Level 99, Calcium Level 9.3, Corrected Calcium 9.3, Magnesium Level 2.0, Total Bilirubin 0.4, Aspartate Amino Transf (AST/SGOT) 22, Alanine A minotransferase (ALT/SGPT) 26, Alkaline Phosphatase 93, Myoglobin 24.1, Troponin I < 0.028, B-Type Natriuretic Peptide 37.5, Total Protein 6.9, Albumin 4.0 06/27/20 00:50: White Blood Count 8.3, Red Blood Count 4.54, Hemoglobin 13.2, Hematocrit 38, Mean Corpuscular Volume 84, Mean Corpuscular Hemoglobin 29, Mean Corpuscular Hemoglobin Concent 35, Red Cell Distribution Width 12.2, Platelet Count 264, Mean Platelet Volume 10.3, Immature Granulocyte % (Auto) 0, Neutrophils (%) (Auto) 60, Lymphocytes (%) (Auto) 25, Monocytes (%) (Auto) 10, Eosinophils (%) (Auto) 4, Basophils (%) (Auto) 0, Neutrophils # (Auto) 5.0, Lymphocytes # (Auto) 2.1, Monocytes # (Auto) 0.9, Eosinophils # (Auto) 0.3, Basophils # (Auto) 0.0, Immature Granulocyte # (Auto) 0.0, Sodium Level 140, Potassium Level 3.7, Chloride Level 105, Carbon Dioxide Level 25, Anion Gap 10, Blood Urea Nitrogen 13, Creatinine 0.78, Estimat Glomerular Filtration Rate > 60, BUN/Creatinine Ratio 17, Glucose Level 117H, Calcium Level 8.6, Corrected Calcium 9.0, Magnesium Level 2.0, Total Bilirubin 0.3, Aspartate Amino Transf (AST/SGOT) 22, Alanine Aminotransferase (ALT/SGPT) 26, Alkaline Phosphatase 82, Troponin I < 0.028, Total Protein 6.0L, Albumin 3.5, Phosphorus Level 3.6, Triglycerides Level 207H, Cholesterol Level 111, LDL Cholesterol Direct 57, VLDL Cholesterol 41H, HDL Cholesterol 28L 06/27/20 06:43: Troponin I < 0.028 A/P-Cardiology Assessment/Admission Diagnosis Chest pain, noncardiac, based on normal cardiac enzymes and cardiac cath carried out today (see below) CAD - Card cath and PCI on 03/02/20: Coronary artery disease primarily consisting of 95% ostial stenosis of the left anterior descending to just past origin of large D1 to which successful balloon angioplasty was carried out with reduced the stenosis to less than 30%. Mild plaque in other cors. RCA dominant - Card cath and PCI on 04/21/20: PTCA for 95% restenosis as site of PTCA in mid LAD, just past D1, reducing the lesion to less than 10% and with normal antegrade flow, LVEDP 12 mmHg, LVEF 50-55% - Cardiac cath on 06-08-[address] Oden: Severe LAD stenosis, transferred to [facility] - Reports cardiac cath with PCI on 06-10-[address] Haywood at [facility] - Card cath on 06/26/20: Patent LAD stent, mild to mod distal CAD, anomalous high origin of RCA and mild diffuse disease of RCA, LVEDP 11 mmHg, LVEF 55-60% HTN Scleroderma, by history H/O rheumatic fever as a child Celiac dz HLD H/o occular stroke Reported allergy to ASA (however, she has been taking ASA, per her report, without difficulty) - reports h/o convulsions Reported shellfish allergy H/O chronic joint pain d/t arthritis Family h/o premature CAD (brothers x2 and father) Discussion and Recomendations Due to symptoms consistent with angina continuing instability of symptoms and h/o known CAD with previous multiple intervention we carried out urgent cardiac cath after discussing the proceedure, risks, benefits of cardiac cath with possible PCI. She verbalized understanding and provides informed consent. Cath shows stable cor status (see above) Continue DAPT Continue statin and BB Risk factor mod reviewed Questions answered Outpt f/u advised Clinical Quality Measures AMI/AHF: ASA po Prior to arrival: Yes (325MG) SERENITY NINO MD FACP FACC CCDS Jun 27, 2020 15:15
--- NOTE | 2020-06-27 15:18 | Cardiac Procedure Note-CS/ASA ---
Pre-Procedure Note Pre-Op Procedure Note H&P Reviewed The H&P was reviewed, patient examined and no changes noted. Date H&P Reviewed: Jun 27, 2020 Time H&P Reviewed: 14:30 Conscious Sedation Pre-Proced Time 14:30 ASA Score 3 For ASA 3 and 4: Consider anesthesia and medical clearance. Also, for patients with a history of failed moderate sedation consider anesthesia. Airway Lungs Heart ASA score ASA 1: a normal healthy patient ASA 2: a patient with a mild systemic disease (mid diabetes, controlled hypertension, obesity ASA 3: a patient with a severe systemic disease that limits activity (angina, COPD, prior Myocardial infarction) ASA 4: a patient with an incapacitating disease that is a constant threat to life (CHF, renal failure) ASA 5: a moribund patient not expected to survive 24 hrs. (ruptured aneurysm) ASA 6: a declared brain- patient whose organs are being harvested. For emergent operations, add the letter E after the classification Mallampati Classification Grade 2 Sedation Plan Analgesia, Amnesia, Plan communicated to team members, Discussed options with patient/fam, Discussed risks with patient/fam The patient is an appropriate candidate to undergo the planned procedure, sedation, and anesthesia. The patient immediately re-assessed prior to indication. SERENITY NINO MD FACP FAC CCDS Jun 27, 2020 15:18
--- NOTE | 2020-06-27 15:47 | CARDIAC CATHETERIZATION ---
DATE OF SERVICE: 06/27/2020 CARDIAC CATHETERIZATION The patient is a 54-year-old lady, who was hospitalized with chest discomfort that she felt was similar to her previous unstable angina. Because of continuing symptoms, cardiac catheterization was carried out after having obtained an informed consent. DESCRIPTION OF PROCEDURE: She was brought to the cardiac catheterization laboratory in a fasting state. Right groin was prepared and draped in the usual sterile fashion. Lidocaine 1% was used for local anesthesia. Modified Seldinger technique was used to advance a 5-Panamanian sheath in the right femoral artery, 5-Panamanian JL4 catheter was used for left coronary angiography, 5-Panamanian JR4 catheter for right coronary angiography, 5-Panamanian pigtail catheter was used for left heart catheterization and left ventricular angiography. At the end of the procedure, angiography of the right femoral artery was carried out through the sheath and Mynx was used to achieve hemostasis following sheath removal. She tolerated the procedure well. HEMODYNAMICS: Left ventricular end-diastolic pressure following coronary angiography was 11 mmHg. There was no significant pressure gradient on pullback across the aortic valve. CORONARY ANGIOGRAPHY: Left main coronary artery is free of significant disease. Left anterior descending artery has a widely patent stent in its mid portion following the origin of the first diagonal. The stent is patent and free of significant disease. Distal left anterior descending artery has diffuse moderate disease. Left circumflex artery has mild plaques. Right coronary artery is dominant and has mild plaques. LEFT VENTRICULAR ANGIOGRAPHY: Left ventricular angiography was carried out in the right anterior oblique projection. Global left ventricular systolic function is normal. Left ventricular ejection fraction approximately 55% to 60%. CONCLUSIONS: 1. Mild coronary artery disease. 2. Patent stent in the mid left anterior descending artery. 3. Normal global left ventricular systolic function with ejection fraction of 55% to 60%. 4. Normal left ventricular end-diastolic pressure. DISCUSSION AND RECOMMENDATIONS: Based on results of the study, chest discomfort does not appear to be of coronary origin. Continuing risk factor modification is advised. Outpatient followup is advised. Job ID: [id number] DocumentID: [id number] Dictated Date: 06/27/2020 15:00:05 Maintenance Technician Date: 06/27/2020 15:47:02 Dictated By: SERENITY NINO MD, MA, FACP, FACC,
--- NOTE | 2020-06-27 17:30 | History & Physical ---
ELIER JOHNSON,MED STUDENT 06/27/20 1730: HPI History of Present Illness: She noticed yesterday while walking around a store that she was having chest pain that felt like her heart was being squeezed. The pain was only with exertion, and subsided with rest. The pain radiated to her L shoulder/arm, and to her jaw. Shortly after the onset of pain, she felt lightheaded and had some nausea. She also reports feeling a little more tired the last few days. She feels fine when at rest, but felt the chest pain when she woke up this morning and leaned forward in bed. At rest, she feels completely normal. Source: patient Exam Limitations: no limitations Time Seen by Provider: 09:30 Attending Physician Margi Smalls MD [facility] [place] Consult Date of Admission Jun 26, 2020 at 19:30 Home Medications Home Medications Reviewed patient Home Medication Reconciliation performed by pharmacy medication reconciliations transportation engineering technician and/or nursing. Patients Allergies have been reviewed. Allergies Coded Allergies: nitrofurantoin (Verified Allergy, Severe, 03/02/20) shellfish derived (Verified Allergy, Severe, 03/02/20) atorvastatin (Verified Allergy, Intermediate, 03/02/20) pt states it makes her hurt all over/extreme pain Penicillins (Unverified Allergy, Mild, 06/09/08) codeine (Verified Allergy, Unknown, 03/02/20) [id number] Hx Patient Social History Smoking Status: Never a Smoker Recent Hopitalizations: No Alcohol Use?: No Have you traveled recently?: No Past Medical History Systemic Sclerosis CAD HTN HLD Anxiety MDD Family Medical History Other Significan Family Hx: CAD Family History: Alcoholism G8 BROTHER, Onset:15's - 20 Arthritis 19 MOTHER, Onset:Adolescence G8 BROTHER, Onset:Adolescence G8 SISTER, Onset:25's - 30 Asthma G8 BROTHER Cataracts 19 FATHER, Onset:60 years & older Deafness or hearing loss 19 FATHER Dementia 19 FATHER Diabetes mellitus 19 MOTHER G8 BROTHER Hypertension 19 FATHER G8 BROTHER Myocardial infarction 19 FATHER, Onset:60 years & older G8 BROTHER, Onset:40's - 50 Psychosocial problem G8 BROTHER, Onset:25's - 30 Severe allergy 19 FATHER, Onset: 19 MOTHER, Onset:Childhood Review of Systems (CHC) Constitutional: dizziness (after onset of chest pain) EENTM: No hearing loss, No vision loss, No epistaxis Respiratory: short of breath (associated with chest pain) Cardiovascular: chest pain (with exertion only, radiates to L shoulder/arm and jaw); No edema Gastrointestinal: nausea (after onset of chest pain) Genitourinary: No decreased output, No dysuria Musculoskeletal: No joint swelling, No muscle pain Skin: No rash Psychiatric/Neurological: Denies Anxiety, Denies Depressed, Denies Headache Reviewed Test Results Reviewed Test Results Lab Laboratory Tests Test 06/26/20 18:26 06/27/20 00:50 06/27/20 06:43 Range/Units White Blood Count 7.7 8.3 4.3-11.0 10^3/uL Red Blood Count 4.85 4.54 3.80-5.11 10^6/uL Hemoglobin 13.9 13.2 11.5-16.0 g/dL Hematocrit 41 38 35-52 % Mean Corpuscular Volume 85 84 80-99 fL Mean Corpuscular Hemoglobin 29 29 25-34 pg Mean Corpuscular Hemoglobin Concent 34 35 32-36 g/dL Red Cell Distribution Width 12.1 12.2 10.0-14.5 % Platelet Count 306 264 130-400 10^3/uL Mean Platelet Volume 10.3 10.3 9.0-12.2 fL Immature Granulocyte % (Auto) 0 0 % Neutrophils (%) (Auto) 57 60 42-75 % Lymphocytes (%) (Auto) 29 25 12-44 % Monocytes (%) (Auto) 10 10 0-12 % Eosinophils (%) (Auto) 3 4 0-10 % Basophils (%) (Auto) 0 0 0-10 % Neutrophils # (Auto) 4.4 5.0 1.8-7.8 10^3/uL Lymphocytes # (Auto) 2.2 2.1 1.0-4.0 10^3/uL Monocytes # (Auto) 0.8 0.9 0.0-1.0 10^3/uL Eosinophils # (Auto) 0.3 0.3 0.0-0.3 10^3/uL Basophils # (Auto) 0.0 0.0 0.0-0.1 10^3/uL Immature Granulocyte # (Auto) 0.0 0.0 0.0-0.1 10^3/uL Prothrombin Time 14.2 12.2-14.7 SEC INR Comment 1.1 0.8-1.4 Activated Partial Thromboplast Time 33 24-35 SEC Sodium Level 137 140 135-145 MMOL/L Potassium Level 4.2 3.7 3.6-5.0 MMOL/L Chloride Level 103 105 98-107 MMOL/L Carbon Dioxide Level 23 25 21-32 MMOL/L Anion Gap 11 10 5-14 MMOL/L Blood Urea Nitrogen 11 13 7-18 MG/DL Creatinine 0.81 0.78 0.60-1.30 MG/DL Estimat Glomerular Filtration Rate > 60 > 60 BUN/Creatinine Ratio 14 17 Glucose Level 99 117 H 70-105 MG/DL Calcium Level 9.3 8.6 8.5-10.1 MG/DL Corrected Calcium 9.3 9.0 8.5-10.1 MG/DL Magnesium Level 2.0 2.0 1.6-2.4 MG/DL Total Bilirubin 0.4 0.3 0.1-1.0 MG/DL Aspartate Amino Transf (AST/SGOT) 22 22 5-34 U/L Alanine Aminotransferase (ALT/SGPT) 26 26 0-55 U/L Alkaline Phosphatase 93 82 40-136 U/L Myoglobin 24.1 10.0-92.0 NG/ML Troponin I < 0.028 < 0.028 < 0.028 <0.028 NG/ML B-Type Natriuretic Peptide 37.5 <100.0 PG/ML Total Protein 6.9 6.0 L 6.4-8.2 GM/DL Albumin 4.0 3.5 3.2-4.5 GM/DL Phosphorus Level 3.6 2.3-4.7 MG/DL Triglycerides Level 207 H <150 MG/DL Cholesterol Level 111 < 200 MG/DL LDL Cholesterol Direct 57 1-129 MG/DL VLDL Cholesterol 41 H 5-40 MG/DL HDL Cholesterol 28 L 40-60 MG/DL Radiology NAME: ANJELICA GARCIA [facility] REC#: [id number] PT STATUS: ADM Moises : 1965 PHYSICIAN: MARGI SMALLS MD ADMIT DATE: 06/26/20/ICU Signed Date of Exam:06/27/20 CHEST 1 VIEW, AP/PA ONLY INDICATION: Unstable angina. TECHNIQUE: Single view chest 2:29 AM. CORRELATION STUDY: 06/26/2020 FINDINGS: The heart size, mediastinal configuration and pulmonary vascularity are within normal limits. The lungs are clear with no consolidating infiltrate. There is no significant effusion or pneumothorax. Cervical thoracic spinal fusion hardware. IMPRESSION: 1. Negative for acute abnormality of the chest. Dictated by: Dictated on workstation # [id number] Dict: 06/27/20730 Trans: 06/27/20 0732 DO [id number] Interpreted by: NORI BAUTISTA DO Electronically signed by: NORI BAUTISTA DO 06/27/20 0732 Physical Exam-(CHC) Physical Exam Vital Signs VS - Last 72 Hours, by Label 06/26/20 06/26/20 06/26/20 06/26/20 17:54 20:29 20:30 20:40 Temp 37.1 36.9 36.2 Pulse 62 71 61 56 Resp 16 16 14 B/P (MAP) 135/60 (85) 115/69 (85) 110/76 (87) Pulse Ox 98 98 100 O2 Delivery Room Air Room Air Room Air O2 Flow Rate 62.00 0 06/26/20 06/26/20 06/26/20 06/26/20 20:48 20:57 21:00 21:15 Temp 36.9 Pulse 57 71 54 56 Resp 23 20 16 B/P (MAP) 100/87 (91) 108/59 (77) 109/55 (74) Pulse Ox 99 98 99 97 O2 Delivery Room Air Room Air Room Air FiO2 21 06/26/20 06/26/20 06/26/20 06/26/20 21:30 21:45 22:00 23:00 Pulse 59 61 61 60 Resp 13 11 16 B/P (MAP) 110/59 (84) 119/57 (77) 101/75 (84) 85/44 (58) Pulse Ox 98 97 96 95 O2 Delivery Room Air Room Air Room Air Room Air 06/26/20 06/26/20 06/27/20 06/27/20 23:15 23:59 00:00 00:15 Pulse 59 60 61 Resp 15 16 16 B/P (MAP) 90/44 (59) 84/51 (62) 93/40 (57) Pulse Ox 96 100 96 96 O2 Delivery Room Air Room Air Room Air Room Air 06/27/20 06/27/20 06/27/20 06/27/20 01:00 01:00 02:00 03:00 Pulse 64 64 62 65 Resp 17 17 13 B/P (MAP) 99/48 (65) 93/46 (62) 96/52 (67) Pulse Ox 96 95 96 O2 Delivery Room Air Room Air Room Air 06/27/20 06/27/20 06/27/20 06/27/20 04:00 04:00 05:00 06:00 Pulse 66 70 70 Resp 14 18 15 B/P (MAP) 94/47 (63) 100/54 (69) 104/54 (71) Pulse Ox 100 94 95 96 O2 Delivery Room Air Room Air Room Air Room Air 06/27/20 06/27/20 06/27/20 06/27/20 06:51 07:00 07:54 08:00 Temp 36.6 Pulse 69 69 Resp 16 B/P (MAP) 110/58 (75) Pulse Ox 95 95 O2 Delivery Room Air Room Air 06/27/20 06/27/20 06/27/20 06/27/20 08:00 09:00 11:00 11:17 Temp 36.0 Pulse 66 69 65 Resp 18 11 16 B/P (MAP) 114/57 (76) 103/60 (74) 100/58 (72) Pulse Ox 96 97 96 O2 Delivery Room Air Room Air Room Air 06/27/20 06/27/20 06/27/20 06/27/20 12:00 12:00 12:43 13:00 Pulse 65 66 56 Resp 15 10 B/P (MAP) 99/61 (74) 100/58 (72) Pulse Ox 95 96 96 O2 Delivery Room Air Room Air Room Air 06/27/20 06/27/20 06/27/20 06/27/20 14:00 15:00 15:15 15:30 Pulse 64 59 61 Resp 14 8 12 B/P (MAP) 104/58 (73) 84/73 (77) 100/53 (69) 92/52 (65) Pulse Ox 96 97 95 O2 Delivery Room Air Room Air Room Air Room Air 06/27/20 06/27/20 06/27/20 06/27/20 15:40 15:45 16:00 16:00 Temp 36.2 Pulse 61 61 Resp 13 15 B/P (MAP) 89/55 (66) 102/54 (70) Pulse Ox 94 95 95 O2 Delivery Room Air Room Air Room Air 06/27/20 16:30 Pulse 61 Resp 16 B/P (MAP) 99/52 (68) Pulse Ox 93 O2 Delivery Room Air Capillary Refill : Less Than 3 Seconds General Appearance: no apparent distress Eyes: Bilateral Eye Normal Inspection HEENT: No scleral icterus (R), No scleral icterus (L) Neck: non-tender, full range of motion Respiratory: lungs clear Cardiovascular: regular rate, rhythm, no JVD Gastrointestinal: normal bowel sounds, non tender Back: no CVA tenderness Extremities: no pedal edema Neurologic/Psychiatric: alert, normal mood/affect, oriented x 3 Assessment/Plan Assessment/Plan Admission Dx Angina Assessment & Plan Anjelica Garcia is a 54y F that presented with chest pain on exertion for one day, with resulting lightheadedness and nausea secondary to pain. She follows with cardiology, and has had a recent cath with a stent placed within the last month. Upon presentation, her EKG showed PVCs but had normal sinus rhythm with no ST changes. Troponin and BNP were also within corinna l limits. Cardiology is consulted, with plans to take her for a repeat catheterization today to look for possible causes of her exertional chest pain. (1) Obesity Status: Chronic (2) HTN (hypertension) Status: Chronic Assessment & Plan: Continue REGIONAL PROGRAM MANAGER Metoprolol 50mg Qday (3) HLD (hyperlipidemia) Status: Chronic (4) CAD (coronary artery disease) Status: Acute Assessment & Plan: Continue REGIONAL PROGRAM MANAGER Clopidogrel and ASA (5) Chest pain Status: Acute Assessment & Plan: Cardiology consulted, patient to go for a catheterization today. Morphine and nitroglycerin available prn for chest pain. (6) Other hyperlipidemia Clinical Quality Measures AMI/AHF: ASA po Prior to arrival: Yes (325MG) MARGI SMALLS MD 06/27/20 4355: Home Medications Allergies Coded Allergies: nitrofurantoin (Verified Allergy, Severe, 03/02/20) shellfish derived (Verified Allergy, Severe, 03/02/20) atorvastatin (Verified Allergy, Intermediate, 03/02/20) pt states it makes her hurt all over/extreme pain Penicillins (Unverified Allergy, Mild, 06/09/08) codeine (Verified Allergy, Unknown, 03/02/20) BVA-Kxftsc-Dnmsra Hx Family Medical History Family History: Alcoholism G8 BROTHER, Onset:15's - 20 Arthritis 19 MOTHER, Onset:Adolescence G8 BROTHER, Onset:Adolescence G8 SISTER, Onset:25's - 30 Asthma G8 BROTHER Cataracts 19 FATHER, Onset:60 years & older Deafness or hearing loss 19 FATHER Dementia 19 FATHER Diabetes mellitus 19 MOTHER G8 BROTHER Hypertension 19 FATHER G8 BROTHER Myocardial infarction 19 FATHER, Onset:60 years & older G8 BROTHER, Onset:40's - 50 Psychosocial problem G8 BROTHER, Onset:25's - 30 Severe allergy 19 FATHER, Onset:[place] 19 MOTHER, Onset:Childhood Assessment/Plan Assessment/Plan Admission Status: Observation Supervisory-Addendum Brief Verification & Attestation Participated in pt care: history, MDM, physical Personally performed: exam, history, MDM Care discussed with: Medical Student Procedures: n/a I personally saw and evaluated patient today and did my own history and exam which confirmed that documented by the medical student. I directed the plan of care as documented. ELIER JOHNSON,MED STUDENT Jun 27, 2020 17:30 MARGI SMALLS MD Jun 27, 2020 18:36
--- NOTE | 2020-06-27 18:31 | Discharge Summary ---
Discharge Summary Hospital Course Problems/Diagnosis: (1) Chest pain Status: Acute Assessment & Plan: Cardiology consulted, catheterization done with no intervention needed. (2) Obesity Status: Chronic (3) HTN (hypertension) Status: Chronic Assessment & Plan: Continue FUNERAL DIRECTOR/EMBALMER/OWNER Metoprolol 50mg Qday (4) HLD (hyperlipidemia) Status: Chronic (5) CAD (coronary artery disease) Status: Acute Assessment & Plan: Continue FUNERAL DIRECTOR/EMBALMER/OWNER Clopidogrel and ASA (6) Other hyperlipidemia Hospital Course Date of Admission: Jun 26, 2020 at 19:30 Admission Diagnosis : Family Physician/Provider: Madison Capellan Cyber Systems Administrator Date of Discharge: 06/27/20 Discharge Diagnosis: See problem list Hospital Course: See problem list Labs and Pending Lab Test: Laboratory Tests 06/27/20 00:50: White Blood Count 8.3, Red Blood Count 4.54, Hemoglobin 13.2, Hematocrit 38, Mean Corpuscular Volume 84, Mean Corpuscular Hemoglobin 29, Mean Corpuscular Hemoglobin Concent 35, Red Cell Distribution Width 12.2, Platelet Count 264, Mean Platelet Volume 10.3, Immature Granulocyte % (Auto) 0, Neutrophils (%) (Auto) 60, Lymphocytes (%) (Auto) 25, Monocytes (%) (Auto) 10, Eosinophils (%) (Auto) 4, Basophils (%) (Auto) 0, Neutrophils # (Auto) 5.0, Lymphocytes # (Auto) 2.1, Monocytes # (Auto) 0.9, Eosinophils # (Auto) 0.3, Basophils # (Auto) 0.0, Immature Granulocyte # (Auto) 0.0, Sodium Level 140, Potassium Level 3.7, Chloride Level 105, Carbon Dioxide Level 25, Anion Gap 10, Blood Urea Nitrogen 13, Creatinine 0.78, Estimat Glomerular Filtration Rate > 60, BUN/Creatinine Ratio 17, Glucose Level 117H, Calcium Level 8.6, Corrected Calcium 9.0, Phosphorus Level 3.6, Magnesium Level 2.0, Total Bilirubin 0.3, Aspartate Amino Transf (AST/SGOT) 22, Alanine Aminotransferase (ALT/SGPT) 26, Alkaline Phosphatase 82, Troponin I < 0.028, Total Protein 6.0L, Albumin 3.5, Triglycerides Level 207H, Cholesterol Level 111, LDL Cholesterol Direct 57, VLDL Cholesterol 41H, HDL Cholesterol 28L 06/27/20 06:43: Troponin I < 0.028 Microbiology 06/26/20 MRSA Screen - Final, Complete MRSA not isolated Home Meds Active Reported Flonase Allergy Relief (Fluticasone Propionate) 9.9 Ml [place].susp 1 [place] NSEACH BID PRN Nitroglycerin 0.4 Mg Tab.subl 0.4 Mg SL UD PRN Pantoprazole Sodium 40 Mg Tablet.dr 40 Mg PO DAILY Lisinopril 2.5 Mg Tablet 2.5 Mg PO DAILY Oxymetazoline HCl 30 Ml [place] 1-2 Sprays NS UD PRN Chlortabs (Chlorpheniramine Maleate) 4 Mg Tablet 4 Mg PO Q4H PRN Loratadine 10 Mg Tablet 10 Mg PO DAILY PRN Rosuvastatin Calcium 40 Mg Tablet 40 Mg PO HS Celexa (Citalopram Hydrobromide) 10 Mg Tablet 10 Mg PO HS Plavix (Clopidogrel Bisulfate) 75 Mg Tablet 75 Mg PO DAILY Metoprolol Succinate 50 Mg Tab.er.24h 50 Mg PO 1900 Aspirin EC (Aspirin) 325 Mg Tablet.dr 650 Mg PO BID TAKES 2 (325MG) TABS Voltaren Arthritis Pain (Diclofenac Sodium) 20 Gm Gel..gram. 1 Applic TP PRN PRN APPLY TO SHOULDERS AND/OR KNEES Iron (Ferrous Sulfate) 325 Mg Tablet 325 Mg PO DAILY B Complex (Vitamin B Complex) 1 Each Tablet 1 Each PO DAILY Diphenhydramine HCl 25 Mg Capsule 25 Mg PO QID Magnesium (Magnesium Oxide) 250 Mg Tablet 250 Mg PO BID Assessment/Pt DC Instructions Follow up with Cardiology as directed. Discharge Physical Examination Allergies: Coded Allergies: nitrofurantoin (Verified Allergy, Severe, 03/02/20) shellfish derived (Verified Allergy, Severe, 03/02/20) atorvastatin (Verified Allergy, Intermediate, 03/02/20) pt states it makes her hurt all over/extreme pain Penicillins (Unverified Allergy, Mild, 06/09/08) codeine (Verified Allergy, Unknown, 03/02/20) Clinical Quality Measures AMI/AHF: ASA po Prior to arrival: Yes (325MG) MARGI SMALLS MD Jun 27, 2020 18:31
== END 2020-06-27 18:40 | disposition home or self-care (01) ==
LOC: EDUNIT# 17:53 → ER 17:55 → ICU 19:30
PROVIDERS: ADMIT Family Medicine; ATTEND Family Medicine
DX: I25.110 Atherosclerotic heart disease of native coronary artery with unstable angina pectoris (principal); E78.49 Other hyperlipidemia; I10 Essential (primary) hypertension; E78.00 Pure hypercholesterolemia, unspecified; J45.909 Unspecified asthma, uncomplicated; G43.909 Migraine, unspecified, not intractable, without status migrainosus; M06.9 Rheumatoid arthritis, unspecified; F41.9 Anxiety disorder, unspecified; F32.9 Major depressive disorder, single episode, unspecified; I21.4 Non-ST elevation (NSTEMI) myocardial infarction; E66.9 Obesity, unspecified; Z68.39 Body mass index [BMI] 39.0-39.9, adult; Z79.82 Long term (current) use of aspirin; Z79.899 Other long term (current) drug therapy; Z88.0 Allergy status to penicillin; Z88.5 Allergy status to narcotic agent; Z88.8 Allergy status to other drugs, medicaments and biological substances; Z91.013 Allergy to seafood
CPT/HCPCS: 71045 ×2; 80053 ×2; 80061; 83735 ×2; 83874; 83880; 84100; 84484 ×2; 85025 ×2; 85610; 85730; 87081; 93005 ×2; 93041; 93458; 99285; C1760; C1894; 36415; G0378

== ENCOUNTER 2020-06-30 23:11 | Emergency (ER) | payer MEDICARE, MEDICAID ==
[~2020-06-30] VITALS: Ht 154 cm; Wt 93.0 kg
[~2020-06-30 23:11] MED LIST changes: +FLUT9.9S NSEACH; +LISI2.5T PO; +NITR0.4T39 SL; +PANT40TA52 PO
[2020-06-30 23:17] VITALS: BP 118/76
[2020-06-30] MEDS ORDERED: LIDOCAINE 1% INJ 20 ML 20 ML VIAL ONE (23:17)
[2020-06-30] MEDS ORDERED: LIDOCAINE 2% 20 ML (XYLOCAINE) VIAL INJ STA (23:22)
[2020-06-30] MEDS ORDERED: TETANUS,DIPTH,PERTUSS P/F (BOOSTRIX) 0.5 ML VIAL IM ONE (23:30)
--- NOTE | 2020-06-30 23:45 | ED Upper Extremity ---
General Chief Complaint: Laceration Stated Complaint: LEFT THUMB LAC Nursing Triage Note: LEFT THUMB LACERATION. Nursing Sepsis Screen: No Definite Risk Source: patient History of Present Illness Date Seen by Provider: Jun 30, 2020 Time Seen by Provider: 23:18 Initial Comments PT ARRIVES VIA POV FROM HOME C/O LEFT THUMB LACERATION STATES AROUND 1930 TONIGHT, SHE WAS SLICING ONIONS, AND ACCIDENTALLY SLICED HER THUMB. WOUND CONTINUES TO BLEED PT IS ON PLAVIX AND ASPIRIN PT IS NOT DIABETIC PT IS RIGHT HANDED. PCP: [facility] Allergies and Home Medications Allergies Coded Allergies: nitrofurantoin (Verified Allergy, Severe, 03/02/20) shellfish derived (Verified Allergy, Severe, 03/02/20) atorvastatin (Verified Allergy, Intermediate, 03/02/20) pt states it makes her hurt all over/extreme pain Penicillins (Unverified Allergy, Mild, 06/09/08) codeine (Verified Allergy, Unknown, 03/02/20) Home Medications Aspirin 325 Mg Tablet.dr, 650 MG PO BID, (Reported) TAKES 2 (325MG) TABS Chlorpheniramine Maleate 4 Mg Tablet, 4 MG PO Q4H PRN for ALLERGY SYMPTOMS, (Reported) Citalopram Hydrobromide 10 Mg Tablet, 10 MG PO HS, (Reported) Clopidogrel Bisulfate 75 Mg Tablet, 75 MG PO DAILY, (Reported) Diclofenac Sodium 20 Gm Gel..gram., 1 APPLIC TP PRN PRN for PAIN-BREAKTHROUGH, (Reported) APPLY TO SHOULDERS AND/OR KNEES Diphenhydramine HCl 25 Mg Capsule, 25 MG PO QID, (Reported) Ferrous Sulfate 325 Mg Tablet, 325 MG PO DAILY, (Reported) Fluticasone Propionate 9.9 Ml [place].susp, 1 SPRAY NSEACH BID PRN for CONGESTION, (Reported) Lisinopril 2.5 Mg Tablet, 2.5 MG PO DAILY, (Reported) Loratadine 10 Mg Tablet, 10 MG PO DAILY PRN for ALLERGY SYMPTOMS, (Reported) Magnesium Oxide 250 Mg Tablet, 250 MG PO BID, (Reported) Metoprolol Succinate 50 Mg Tab.er.24h, 50 MG PO 1900, (Reported) Nitroglycerin 0.4 Mg Tab.subl, 0.4 MG SL UD PRN for CHEST PAIN, (Reported) Oxymetazoline HCl 30 Ml [place], 1-2 SPRAYS NS UD PRN for CONGESTION, (Reported) Pantoprazole Sodium 40 Mg Tablet.dr, 40 MG PO DAILY, (Reported) Rosuvastatin Calcium 40 Mg Tablet, 40 MG PO HS, (Reported) Vitamin B Complex 1 Each Tablet, 1 EACH PO DAILY, (Reported) Patient Home Medication List Home Medication List Reviewed: Yes Review of Systems Constitutional: no symptoms reported Skin: see HPI Psychiatric/Neurological: No Symptoms Reported Past Xhfglai-Sjepim-Pnmwao Hx Past Med/Social Hx: Reviewed and Corrections made Patient Social History Alcohol Use: Denies Use Smoking Status: Never a Smoker 2nd Hand Smoke Exposure: No Recent Infectious Disease Expo: No Recent Hopitalizations: Yes (DC'D 06/27/20) Immunizations Up To Date Tetanus Booster (TDap): More than 5yrs (2008) Seasonal Allergies Seasonal Allergies: Yes Past Medical History Surgeries: Yes (C-SPINE SURGERY; LEFT ELBOW ULNAR NERVE SURGERY) Cardiac, Coronary Stent, Gallbladder, Orthopedic Respiratory: Yes Asthma Cardiac: Yes ([place] X 2 ; STENT X 1) Coronary Artery Disease, Heart Attack, High Cholesterol, Hypertension Neurological: Yes 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 : 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 Genitourinary: No Gastrointestinal: Yes (S/P CHOLECYSTECTOMY; CELIAC DISEASE) Gall Bladder Disease Musculoskeletal: Yes (SCLERODERMA; C-SPINE SURGERY; LEFT ELBOW ULNAR NERVE SURGERY) Rheumatoid Arthritis Endocrine: No HEENT: Yes (SINUS PROBLEMS) Cancer: No Psychosocial: Yes Anxiety, Depression Integumentary: Yes Psoriasis Blood Disorders: No Family Medical History Alcoholism G8 BROTHER, Onset:15's - 20 Arthritis 19 MOTHER, Onset:Adolescence G8 BROTHER, Onset:Adolescence G8 SISTER, Onset:25's - 30 Asthma G8 BROTHER Cataracts 19 FATHER, Onset:60 years & older Deafness or hearing loss 19 FATHER Dementia 19 FATHER Diabetes mellitus 19 MOTHER G8 BROTHER Hypertension 19 FATHER G8 BROTHER Myocardial infarction 19 FATHER, Onset:60 years & older G8 BROTHER, Onset:40's - 50 Psychosocial problem G8 BROTHER, Onset:25's - 30 Severe allergy 19 FATHER, Onset: 19 MOTHER, Onset:Childhood PAST SURGICAL HISTORY: -CERVICAL SPINE SURGERY -LEFT ELBOW ULNAR NERVE SURGERY -CHOLECYSTECTOMY -CARDIAC CATHS--HAD STENT X 1 PLACED 06/10/20 AT [facility]. LAST CARDIAC CATH DONE HERE 06/27/[address] NINO: CONCLUSIONS: 1. Mild coronary artery disease. 2. Patent stent in the mid left anterior descending artery. 3. Normal global left ventricular systolic function with ejection fraction of 55% to 60%. 4. Normal left ventricular end-diastolic pressure. Physical Exam Vital Signs Vital Signs - First Documented 06/30/20 23:17 Temp 35.0 Pulse 60 Resp 18 B/P (MAP) 118/76 (90) Pulse Ox 96 O2 Delivery Room Air Capillary Refill : Less Than 3 Seconds Height, Weight, BMI Height: '" Weight: lbs. oz. kg; 39.00 BMI Method: General Appearance: WD/WN, no apparent distress, other (VERY TALKATIVE AND PLEASANT) Hand: Left (THUMB), laceration (VERY SUPERFICIAL V-SHAPED LACERATION TO PAD OF LEFT THUMB, WITH MODERATE CONSTANT OOZING--CONTROLLED WITH PRESSURE. MOTOR/SENSORY/VASCULAR INTACT) Procedures/Interventions Other Wound Location LEFT THUMB Wound Length (cm): 1 Wound's Depth, Shape: superficial, flap Wound Explored: clean Anesthesia: 1% Lidocaine Suture: Ethlion Suture Size: 5-0 Number of Sutures: 3 Layer Closure?: 1 Sterile Dressing Applied?: Yes Progress BLEEDING CONTROLLED AT DISMISSAL Progress/Results/Core Measures Results/Orders My Orders Orders - JOSÉ RICO DO Dipht,Pertuss(Acell),Tet Adult (Boostrix (06/30/20 23:30) Lidocaine 2% Injection 20 Ml (Xylocaine (06/30/20 23:22) Lidocaine 1% Inj 20 Ml (Xylocaine 1% Inj (06/30/20 23:17) Wound Dressing-Ed (06/30/20 23:43) Medications Given in ED Current Medications Medications Dose Ordered Sig/Issa Route Start Time Stop Time Status Last Admin Dose Admin Diphtheria/ Tetanus/Acell Pertussis 0.5 ml ONCE ONCE IM 06/30/20 23:30 06/30/20 23:31 DC 06/30/20 23:26 0.5 ML Lidocaine HCl 20 ml STK-MED ONCE .ROUTE 06/30/20 23:17 06/30/20 23:25 DC 06/30/20 23:25 20 ML Vital Signs/I&O 06/30/20 23:17 Temp 35.0 Pulse 60 Resp 18 B/P (MAP) 118/76 (90) Pulse Ox 96 O2 Delivery Room Air Blood Pressure Mean: 90 Departure Impression Primary Impression: Laceration of left thumb Additional Impression: Jhqnybuemy-jxymloogp-fuolard (DPT) vaccination administered at current visit Disposition: 01 HOME, SELF-CARE Condition: Stable Departure-Patient Inst. Referrals: [facility] (PCP) Primary Care Physician ROSI CABRERA APRN (Family) Primary Care Physician Patient Instructions: Diphtheria and Tetanus Toxoids, and Acellular Pertussis Vaccine, Laceration Repair With Stitches (DC) Add. Discharge Instructions: CLEAN WOUND TWICE A DAY WITH ANTIBACTERIAL SOAP AND WATER ON A Q-TIP, OTHERWISE KEEP CLEAN AND DRY TYLENOL NEEDED FOR PAIN SUTURES OUT IN 10 DAYS--RETURN TO ER FOR REMOVAL All discharge instructions reviewed with patient and/or family. Voiced understanding. JOSÉ RICO DO Jun 30, 2020 23:45
== END 2020-06-30 23:50 | disposition home or self-care (01) ==
LOC: EDUNIT# 23:11 → ER 23:14
DX: S61.012A Laceration without foreign body of left thumb without damage to nail, initial encounter (principal); I10 Essential (primary) hypertension; I25.10 Atherosclerotic heart disease of native coronary artery without angina pectoris; I25.2 Old myocardial infarction; E78.00 Pure hypercholesterolemia, unspecified; G43.909 Migraine, unspecified, not intractable, without status migrainosus; F41.9 Anxiety disorder, unspecified; F32.9 Major depressive disorder, single episode, unspecified; J45.909 Unspecified asthma, uncomplicated; Z23 Encounter for immunization; Z95.5 Presence of coronary angioplasty implant and graft; Z79.82 Long term (current) use of aspirin; Z79.02 Long term (current) use of antithrombotics/antiplatelets; Z79.51 Long term (current) use of inhaled steroids; Z88.0 Allergy status to penicillin; Z88.1 Allergy status to other antibiotic agents; Z88.5 Allergy status to narcotic agent; Z88.8 Allergy status to other drugs, medicaments and biological substances; W26.9XXA Contact with unspecified sharp object(s), initial encounter
CPT/HCPCS: 12001; 90715

== ENCOUNTER 2020-07-10 10:51 | Emergency (ER) | payer MEDICARE, MEDICAID | END 2020-07-10 11:39 | disposition home or self-care (01) | LOC: EDUNIT# 10:51 → ER 10:53 | DX: Z48.02 Encounter for removal of sutures (principal) ==

== ENCOUNTER 2020-10-19 13:06 | Outpatient (RCR) | payer MEDICARE, MEDICAID ==
[~2020-10-19 13:06] MED LIST changes: -LISI2.5T PO; +LISI2.5T13 PO
[2020-10-19 13:35] LABS: BASOPHILS % (AUTO) 1 % (0-10); EOSINOPHILS # (AUTO) 0.2 10^3/uL (0.0-0.3); EOSINOPHILS % (AUTO) 3 % (0-10); HEMATOCRIT 42 % (35-52); HEMOGLOBIN 14.8 g/dL (11.5-16.0); LYMPHOCYTES # (AUTO) 1.9 10^3/uL (1.0-4.0); LYMPHOCYTES % (AUTO) 24 % (12-44); MEAN CORPUSCULAR HEMOGLOBIN 30 pg (25-34); MEAN CORPUSCULAR HGB CONC 35 g/dL (32-36); MEAN CORPUSCULAR VOLUME 85 fL (80-99); MEAN PLATELET VOLUME 9.6 fL (9.0-12.2); MONOCYTES # (AUTO) 0.8 10^3/uL (0.0-1.0); MONOCYTES % (AUTO) 10 % (0-12); NEUTROPHILS # (AUTO) 5.2 10^3/uL (1.8-7.8); NEUTROPHILS % (AUTO) 64 % (42-75); PLATELET COUNT 305 10^3/uL (130-400); WHITE BLOOD COUNT 8.2 10^3/uL (4.3-11.0)
[2020-10-19 13:56] LABS: ALBUMIN 3.9 GM/DL (3.2-4.5); BILIRUBIN,TOTAL 0.5 MG/DL (0.1-1.0); CALCIUM 9.2 MG/DL (8.5-10.1); CREATININE SERUM 0.77 MG/DL (0.60-1.30); TOTAL PROTEIN 6.8 GM/DL (6.4-8.2)
[2020-10-24 13:18] LABS: IMMUNOFIX PATH REPORT NUMBER Complete (Complete)
== END 2021-01-17 | disposition home or self-care (01) ==
LOC: ONC 13:06
PROVIDERS: ATTEND Internal Medicine Hematology & Oncology
DX: D47.2 Monoclonal gammopathy (principal); I25.10 Atherosclerotic heart disease of native coronary artery without angina pectoris; I10 Essential (primary) hypertension; M34.9 Systemic sclerosis, unspecified
CPT/HCPCS: 80053; 82784 ×3; 83883; 84165; 85025; 86334; G0463; 84155; 99214

== ENCOUNTER → 2020-11-13 | Outpatient (CLI) | payer MEDICARE, MEDICAID ==
[~2020-11-13] MED LIST changes: +GADOBUTROL 10 MMOL/10 ML (GADAVIST) VIAL IV ONE; +LISI2.5T PO; -LISI2.5T13 PO
--- NOTE | 2020-11-13 12:53 | Diagnostic Imaging Report ---
CLINICAL INDICATION: Patient with dizzy spell. EXAM: MRI of the brain performed without and with 9 cc of Gadavist IV contrast. Sequences include axial DWI, ADC map, axial gradient echo, axial T2, axial FLAIR, axial T1, axial T1 post IV contrast, coronal T1 fat-sat post IV contrast, and sagittal T1 post IV contrast. COMPARISON: Head CT without contrast dated 06/09/2008. FINDINGS: There is no evidence of acute cerebral infarct, intracranial hemorrhage, or gross mass effect. There is no abnormal IV contrast enhancement. The brain parenchymal volume appears appropriate for patient's age. There is normal lehman-white matter distinction. There is no significant midline shift or herniation. The grayling of Smith vascular structures show no gross abnormality as visualized. The pituitary gland, sella, and suprasellar regions are unremarkable as visualized. There is no evidence of hydrocephalus. The basal cisterns are unremarkable. The skull, extracranial soft tissue, and orbits are unremarkable. There is minimal mucosal thickening involving the ethmoid sinus and left maxillary sinus. Temporal bones show no significant abnormality. IMPRESSION: Mild paranasal sinus disease. Otherwise, unremarkable MRI of the brain. Dictated by: Dictated on workstation # [id number]
== END ==
LOC: RAD 11:00
PROVIDERS: ATTEND Otolaryngology Otolaryngology/Facial Plastic Surgery
DX: H81.4 Vertigo of central origin (principal); J34.9 Unspecified disorder of nose and nasal sinuses; W19.XXXA Unspecified fall, initial encounter
CPT/HCPCS: 70553

== ENCOUNTER 2021-02-19 17:59 | Observation (INO) | payer MEDICARE, MEDICAID ==
[~2021-02-19] VITALS: Ht 154.9 cm; Wt 100.5 kg
[~2021-02-19 17:59] MED LIST changes: -GADOBUTROL 10 MMOL/10 ML (GADAVIST) VIAL IV ONE; -LISI2.5T PO; +LISI2.5T13 PO
--- NOTE | 2021-02-19 18:22 | ED Cardiac General ---
History of Present Illness General Stated Complaint: L SIDE CP/THROAT PAIN/SOB Source: patient History of Present Illness Date Seen by Provider: Feb 19, 2021 Time Seen by Provider: 18:05 Initial Comments PT ARRIVES VIA POV FROM HOME--BRINGS HER FATHER WITH HER C/O CHEST PAIN X 5 DAYS PAIN IS IN LEFT UPPER CHEST AND RADIATES ACROSS TO HER RIGHT NECK AND RIGHT EAR PAIN IS A BURNING TYPE PAIN RATES PAIN 4/10 AT THIS TIME, 6-7/10 AT WORST NOTHING WORSENS OR IMPROVES PAIN HAS NTG AT HOME BUT HAS NOT TAKEN ANY AT ANY TIME + SHORTNESS OF BREATH + NAUSEA, NO VOMITING + SWEATS, BUT STATES "I SWEAT ALL THE TIME" NO CHANGE IN CHRONIC LEG SWELLING NO FEVER NO COUGH OR URI SYMPTOMS OR RECENT ILLNESS PT HAS HAD COVID-19 VACCINE X 2 IN AUGUST OF THIS YEAR PT HAS HISTORY OF CAD WITH [place], HAD STENT X 1 04/2020 HAD A CARDIAC CATH IN DECEMBER OF THIS YEAR--IN [place] WHILE SHE WAS VISITING FAMILY THERE. 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 NINO Allergies and Home Medications Allergies Coded Allergies: nitrofurantoin (Verified Allergy, Severe, 03/02/20) shellfish derived (Verified Allergy, Severe, 03/02/20) atorvastatin (Verified Allergy, Intermediate, 03/02/20) pt states it makes her hurt all over/extreme pain Penicillins (Unverified Allergy, Mild, 06/09/08) codeine (Verified Allergy, Unknown, 03/02/20) Patient Home Medication List Home Medication List Reviewed: Yes Aspirin (Aspirin EC) 325 Mg Tablet., 650 MG PO BID, (Reported) Entered as Reported by: ISABELLA CARDOZO on 04/20/20 1600 Chlorpheniramine Maleate (Chlortabs) 4 Mg Tablet, 4 MG PO Q4H PRN for ALLERGY SYMPTOMS, (Reported) Entered as Reported by: ISABELLA CARDOZO on 06/08/20 1109 Citalopram Hydrobromide (Celexa) 10 Mg Tablet, 10 MG PO HS, (Reported) Entered as Reported by: PETER BROWN on 06/07/20 1614 Clopidogrel Bisulfate (Plavix) 75 Mg Tablet, 75 MG PO DAILY, (Reported) Entered as Reported by: ISABELLA CARDOZO on 04/20/20 1600 Diclofenac Sodium (Voltaren Arthritis Pain) 20 Gm Gel..gram., 1 APPLIC TP PRN PRN for PAIN-BREAKTHROUGH, (Reported) Entered as Reported by: ISABELLA CARDOZO on 03/02/20 1138 Diphenhydramine HCl (Diphenhydramine HCl) 25 Mg Capsule, 25 MG PO QID, (Reported) Entered as Reported by: ISABELLA CARDOZO on 03/02/20 1138 Ferrous Sulfate (Iron) 325 Mg Tablet, 325 MG PO DAILY, (Reported) Entered as Reported by: ISABELLA CARDOZO on 03/02/20 113 Fluticasone Propionate (Flonase Allergy Relief) 9.9 Ml [place].susp, 1 SPRAY NSEACH BID PRN for CONGESTION, (Reported) Entered as Reported by: ISABELLA CARDOZO on 06/27/20 0954 Lisinopril (Lisinopril) 2.5 Mg Tablet, 2.5 MG PO DAILY, (Reported) Entered as Reported by: ISABELLA CARDOZO on 06/27/20 0954 Loratadine (Loratadine) 10 Mg Tablet, 10 MG PO DAILY PRN for ALLERGY SYMPTOMS, (Reported) Entered as Reported by: ISABELLA CARDOZO on 06/08/20 1109 Magnesium Oxide (Magnesium) 250 Mg Tablet, 250 MG PO BID, (Reported) Entered as Reported by: ISABELLA CARDOZO on 03/02/20 1138 Metoprolol Succinate (Metoprolol Succinate) 50 Mg Tab.er.24h, 50 MG PO 1900, (Reported) Entered as Reported by: ISABELLA CARDOZO on 04/20/20 1600 Nitroglycerin (Nitroglycerin) 0.4 Mg Tab.subl, 0.4 MG SL UD PRN for CHEST PAIN, (Reported) Entered as Reported by: ISABELLA CARDOZO on 06/27/20 0954 Oxymetazoline HCl (Oxymetazoline HCl) 30 Ml [place], 1-2 SPRAYS NS UD PRN for CONGESTION, (Reported) Entered as Reported by: ISABELLA CARDOZO on 06/08/20 1109 Pantoprazole Sodium (Pantoprazole Sodium) 40 Mg Tablet.dr, 40 MG PO DAILY, (Reported) Entered as Reported by: ISABELLA CARDOZO on 06/27/20 0954 Rosuvastatin Calcium (Rosuvastatin Calcium) 40 Mg Tablet, 40 MG PO HS, (Reported) Entered as Reported by: ISABELLA CARDOZO on 06/08/20 1109 Vitamin B Complex (B Complex) 1 Each Tablet, 1 EACH PO DAILY, (Reported) Entered as Reported by: ISABELLA CARDOZO on 03/02/20 1138 Review of Systems Review of Systems Constitutional: see HPI, diaphoresis EENTM: See HPI Respiratory: See HPI Cardiovascular: See HPI, Chest Pain, Edema; Denies Lightheadedness, Denies P alpitations, Denies Syncope Gastrointestinal: See HPI; Denies Abdominal Pain; Nausea; Denies Vomiting Genitourinary: No Symptoms Reported Musculoskeletal: see HPI Skin: no symptoms reported Psychiatric/Neurological: No Symptoms Reported Endocrine: No Symptoms Reported Hematologic/Lymphatic: No Symptoms Reported Past Ndbihrw-Phlysm-Vbifsu Hx Patient Social History Tobacco Use?: No Substance use?: No Alcohol Use?: No Immunizations Up To Date Tetanus Booster (TDap): More than 5yrs Seasonal Allergies Seasonal Allergies: Yes Past Medical History Surgeries: Yes (C-SPINE SURGERY; LEFT ELBOW ULNAR NERVE SURGERY;CARDIAC CATH- STENT X 1) Cardiac, Coronary Stent, Gallbladder, Orthopedic Respiratory: Yes Asthma Cardiac: Yes ([place] X 2 ; STENT X 1) Chronic Edema/Swelling, Coronary Artery Disease, Heart Attack, High Cholesterol, Hypertension Neurological: Yes 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 Genitourinary: No Gastrointestinal: Yes (S/P CHOLECYSTECTOMY; CELIAC DISEASE) Gall Bladder Disease Musculoskeletal: Yes (SCLERODERMA; C-SPINE SURGERY; LEFT ELBOW ULNAR NERVE SURGERY) Rheumatoid Arthritis Endocrine: No HEENT: Yes (SINUS PROBLEMS) Cancer: No Psychosocial: Yes Anxiety, Depression Integumentary: Yes Psoriasis Blood Disorders: No Family Medical History Alcoholism G8 BROTHER, Onset:15's - 20 Arthritis 19 MOTHER, Onset:Adolescence G8 BROTHER, Onset:Adolescence G8 SISTER, Onset:25's - 30 Asthma G8 BROTHER Cataracts 19 FATHER, Onset:60 years & older Deafness or hearing loss 19 FATHER Dementia 19 FATHER Diabetes mellitus 19 MOTHER G8 BROTHER Hypertension 19 FATHER G8 BROTHER Myocardial infarction 19 FATHER, Onset:60 years & older G8 BROTHER, Onset:40's - 50 Psychosocial problem G8 BROTHER, Onset:25's - 30 Severe allergy 19 FATHER, Onset: 19 MOTHER, Onset:Childhood PAST SURGICAL HISTORY: -CERVICAL SPINE SURGERY -LEFT ELBOW ULNAR NERVE SURGERY -CHOLECYSTECTOMY -CARDIAC CATHS-- -03/02/[address] NINO: CONCLUSIONS: 1. Coronary artery disease primarily consisting of 95% ostial stenosis of a first diagonal of the left anterior descending to which successful balloon angioplasty was carried out with reduced the stenosis to less than 30%. Elsewhere, the patient exhibits mild to moderate diffuse coronary plaques. 2. Normal global left ventricular systolic function with an ejection fraction of approximately 60%. 3. Elevated left ventricular end-diastolic pressure. -HAD STENT X 1 PLACED 06/10/20 AT [facility]. -LAST CARDIAC CATH DONE HERE 06/27/[address] NINO: CONCLUSIONS: 1. Mild coronary artery disease. 2. Patent stent in the mid left anterior descending artery. 3. Normal global left ventricular systolic function with ejection fraction of 55% to 60%. 4. Normal left ventricular end-diastolic pressure. Physical Exam Vital Signs Vital Signs - First Documented 02/19/21 18:05 Temp 36.0 Pulse 67 Resp 18 B/P (MAP) 130/65 (86) Pulse Ox 97 O2 Delivery Room Air Capillary Refill : Height, Weight, BMI Height: '" Weight: lbs. oz. 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 ) Neck: Normal Inspection Respiratory: Normal Breath Sounds, No Accessory Muscle Use, No Respiratory Distress, Other (MILD LEFT UPPER CHEST TENDERNESS) Cardiovascular: Regular Rate, Rhythm, No Edema, No JVD, No Murmur, Normal Peripheral Pulses, Other (COMPRESSION STOCKINGS IN PLACE; OCCASIONAL PVC'S) Gastrointestinal: Normal Bowel Sounds, No Organomegaly, No Pulsatile Mass, Non Tender, Soft Extremity: Normal Capillary Refill, Normal Range of Motion, No Pedal Edema (WEARING COMPRESSION STOCKINGS) Neurologic/Psychiatric: Alert, Oriented x3, No Motor/Sensory Deficits, Normal Mood/Affect, float phlebotomist II-XII Norm as Tested Skin: Normal Color, Warm/Dry Procedures/Interventions Suture Size: 5-0 Progress/Results/Core Measures Results/Orders Lab Results Laboratory Tests Test 02/19/21 18:15 02/19/21 21:45 Range/Units White Blood Count 9.5 4.3-11.0 10^3/uL Red Blood Count 4.92 3.80-5.11 10^6/uL Hemoglobin 14.9 11.5-16.0 g/dL Hematocrit 44 35-52 % Mean Corpuscular Volume 89 80-99 fL Mean Corpuscular Hemoglobin 30 25-34 pg Mean Corpuscular Hemoglobin Concent 34 32-36 g/dL Red Cell Distribution Width 12.1 10.0-14.5 % Platelet Count 320 130-400 10^3/uL Mean Platelet Volume 9.4 9.0-12.2 fL Immature Granulocyte % (Auto) 0 % Neutrophils (%) (Auto) 59 42-75 % Lymphocytes (%) (Auto) 25 12-44 % Monocytes (%) (Auto) 12 0-12 % Eosinophils (%) (Auto) 3 0-10 % Basophils (%) (Auto) 0 0-10 % Neutrophils # (Auto) 5.6 1.8-7.8 10^3/uL Lymphocytes # (Auto) 2.4 1.0-4.0 10^3/uL Monocytes # (Auto) 1.1 H 0.0-1.0 10^3/uL Eosinophils # (Auto) 0.3 0.0-0.3 10^3/uL Basophils # (Auto) 0.0 0.0-0.1 10^3/uL Immature Granulocyte # (Auto) 0.0 0.0-0.1 10^3/uL Erythrocyte Sedimentation Rate 8 0-30 MM/HR Prothrombin Time 2.4 L 12.2-14.7 SEC INR Comment 0.9 0.8-1.4 Activated Partial Thromboplast Time 25 24-35 SEC D-Dimer 0.17 0.00-0.49 UG/ML Sodium Level 138 135-145 MMOL/L Potassium Level 4.1 3.6-5.0 MMOL/L Chloride Level 104 98-107 MMOL/L Carbon Dioxide Level 22 21-32 MMOL/L Anion Gap 12 5-14 MMOL/L Blood Urea Nitrogen 11 7-18 MG/DL Creatinine 0.76 0.60-1.30 MG/DL Estimat Glomerular Filtration Rate 78 BUN/Creatinine Ratio 14 Glucose Level 106 H 70-105 MG/DL Calcium Level 8.9 8.5-10.1 MG/DL Corrected Calcium 8.9 8.5-10.1 MG/DL Magnesium Level 2.3 1.6-2.4 MG/DL Total Bilirubin 0.3 0.1-1.0 MG/DL Aspartate Amino Transf (AST/SGOT) 21 5-34 U/L Alanine Aminotransferase (ALT/SGPT) 24 0-55 U/L Alkaline Phosphatase 80 40-136 U/L Lactate Dehydrogenase 244 H 125-220 U/L Total Creatine Kinase 90 29-168 U/L Creatine Kinase MB 1.4 <6.6 NG/ML Troponin I < 0.028 < 0.028 <0.028 NG/ML C-Reactive Protein High Sensitivity 0.13 0.00-0.50 MG/DL B-Type Natriuretic Peptide 40.6 <100.0 PG/ML Total Protein 7.1 6.4-8.2 GM/DL Albumin 4.0 3.2-4.5 GM/DL Lipase 39 8-78 U/L Influenza Type A (RT-PCR) Not Detected Not Detecte Influenza Type B (RT-PCR) Not Detected Not Detecte SARS-CoV-2 RNA (RT-PCR) Not Detected Not Detecte My Orders Orders - JOSÉ RICO DO Ed Iv/Invasive Line Start (02/19/21 18:07) Ekg Tracing (02/19/21 18:07) Monitor-Rhythm Ecg Trace Only (02/19/21 18:07) Bnp Christal (02/19/21 18:07) Cbc With Automated Diff (02/19/21 18:07) Comprehensive Metabolic Panel (02/19/21 18:07) Creatine Kinase (02/19/21 18:07) Creatine Kinase Mb (02/19/21 18:07) Hs C Reactive Protein (02/19/21 18:07) Fibrin Degradation Products (02/19/21 18:07) Lipase (02/19/21 18:07) Magnesium (02/19/21 18:07) Protime With Inr (02/19/21 18:07) Partial Thromboplastin Time (02/19/21 18:07) Influenza A And B By Pcr (02/19/21 18:07) Erythrocyte Sedimentation Rate (02/19/21 18:07) Troponin I [place] (02/19/21 18:07) LDH (02/19/21 18:07) Chest 1 View, Ap/Pa Only (02/19/21 18:07) Covid 19 Inhouse Test (02/19/21 18:07) Isolation Central Supply Req (02/19/21 18:07) Aspirin Chewable Tablet (Baby Aspirin Ch (02/19/21 18:30) Nitroglycerin 0.4 Mg Btl 25's (Nitrostat (02/19/21 18:30) Ekg Tracing (02/19/21 21:23) Troponin I [place] (02/19/21 21:23) Aspirin Chewable Tablet (Baby Aspirin Ch (02/19/21 18:44) Nitroglycerin 0.4 Mg Btl 25's (Nitrostat (02/19/21 18:44) Ondansetron Injection (Zofran Injectio (02/19/21 22:30) Medications Given in ED Current Medications Medications Dose Ordered Sig/Issa Route Start Time Stop Time Status Last Admin Dose Admin Aspirin 324 mg ONCE ONCE PO 02/19/21 18:30 02/19/21 21:55 DC 02/19/21 18:47 324 MG Nitroglycerin 1 TAB Q 5 MIN X 3 NEEDED PRN SL 02/19/21 18:30 02/19/21 22:55 0.4 MG Ondansetron HCl 8 mg ONCE ONCE IVP 02/19/21 22:30 02/19/21 22:31 DC 02/19/21 22:47 8 MG Vital Signs/I&O 02/19/21 18:05 Temp 36.0 Pulse 67 Resp 18 B/P (MAP) 130/65 (86) Pulse Ox 97 O2 Delivery Room Air Progress Progress Note : Progress Note GIVEN ASPIRIN AND NTG X 1--COMPLETE RELIEF OF PAIN WILL OBSERVE AND DO REPEAT TROPONIN AND EKG, AND PT IS VERY AGREEABLE TO THIS PLAN--AND ADVISED THAT IF NEGATIVE AND SHE REMAINED PAIN FREE, THEN WOULD SEND HOME AND HAVE HER FOLLOW UP WITH DR. NINO. PT IS AGREEABLE TO THIS PLAN. PT IS CALM AND SMILING AT THIS TIME 2225--AFTER REPEAT TESTING WAS DONE, I WAS REVIEWING TEST RESULTS AND PLAN FOR DISMISSAL, PT IS NOW EXTREMELY AGITATED AND VERY HOSTILE TO THE POINT OF YELLING, AND DEMANDS TO BE ADMITTED AND STATES SHE IS REFUSING TO GO HOME, AND STATES SHE WILL GO HOME AND IF I DO NOT ADMIT HER AND SHE WILL ON THE HOLIDAY. PT HAD NO RETURN OF PAIN AT ANY TIME DURING ER STAY PT DID C/O NAUSEA SHE WAS GETTING UPSET-ZOFRAN ORDERED, WITH IMPROVEMENT IN NAUSEA. Initial ECG Impression Date: Feb 19, 2021 Initial ECG Impression Time: 18:11 Initial ECG Rate: 63 Initial ECG Rhythm: Normal Sinus (PVC'S) Initial ECG Impression: Nonspecific Changes EKG : EKG Time: 21:25 Rate: 57 Rhythm: Normal Sinus ECG Comparisson: Unchanged Diagnostic Imaging Comments CXR--PER RADIOLOGIST REPORT AT 1905 FINDINGS: The heart size and pulmonary vascularity are normal. The lungs are clear. There are no effusions or pneumothoraces. IMPRESSION: Negative chest. Reviewed: Reviewed by Me Departure Communication (Admissions) 2225--SPOKE WITH DR. NINO, BELLING MACHINE OPERATOR, ADVISES TO ADMIT TO HOSPITALIST AND HE WILL SEE PT IN CONSULT. 2229--SPOKE WITH DR. WAGNER, HOSPITALIST FOR [facility], ACCEPTS PT FOR ADMIT. Impression Primary Impression: Chest pain Disposition: ADMITTED INPATIENT Condition: Improved Admissions Decision to Admit Reason: Admit from ER (General) Decision to Admit/Date: Feb 19, 2021 Time/Decision to Admit Time: 22:30 Departure-Patient Inst. Decision time for Depature: 22:23 Referrals: [facility] [place]) Primary Care Physician ROSI CABRERA APRN (Family) Primary Care Physician SERENITY NINO MD FACP FAC CCDS Patient Instructions: Chest Pain (DC) Add. Discharge Instructions: HOME, REST TAKE YOUR NITROGLYCERINE SUBLIGUAL TABLETS EVERY 5 MINUTES X 3, NEEDED FOR CHEST PAIN CONTINUE YOUR REGULAR MEDICATIONS PRESCRIBED FOLLOW UP WITH DR. NINO THIS WEEK FOR FURTHER CARE, RETURN TO ER IF SYMPTOMS RETURN JOSÉ RICO DO Feb 19, 2021 18:22
[2021-02-19] MEDS ORDERED: ASPIRIN 81 MG CHEW (CHILDREN'S ASA) PO ONE (18:30)
[2021-02-19 18:31] LABS: BASOPHILS % (AUTO) 0 % (0-10); EOSINOPHILS # (AUTO) 0.3 10^3/uL (0.0-0.3); EOSINOPHILS % (AUTO) 3 % (0-10); HEMATOCRIT 44 % (35-52); HEMOGLOBIN 14.9 g/dL (11.5-16.0); LYMPHOCYTES # (AUTO) 2.4 10^3/uL (1.0-4.0); LYMPHOCYTES % (AUTO) 25 % (12-44); MEAN CORPUSCULAR HEMOGLOBIN 30 pg (25-34); MEAN CORPUSCULAR HGB CONC 34 g/dL (32-36); MEAN CORPUSCULAR VOLUME 89 fL (80-99); MEAN PLATELET VOLUME 9.4 fL (9.0-12.2); MONOCYTES # (AUTO) 1.1 10^3/uL (0.0-1.0); MONOCYTES % (AUTO) 12 % (0-12); NEUTROPHILS # (AUTO) 5.6 10^3/uL (1.8-7.8); NEUTROPHILS % (AUTO) 59 % (42-75); PLATELET COUNT 320 10^3/uL (130-400); WHITE BLOOD COUNT 9.5 10^3/uL (4.3-11.0)
[2021-02-19] MEDS ORDERED: ASPIRIN 81 MG CHEW (CHILDREN'S ASA) ONE (18:44)
[2021-02-19] MEDS ORDERED: NITROGLYCERIN 0.4 MG SL TABS BTL 25'S SL ONE (18:44)
[2021-02-19 18:47] LABS: CHLORIDE 104 MMOL/L (98-107); POTASSIUM 4.1 MMOL/L (3.6-5.0); SODIUM 138 MMOL/L (135-145)
[2021-02-19] MEDS: NITROGLYCERIN 0.4 MG SL TABS BTL 25'S SL PRN ×2 (18:47→22:55)
[2021-02-19 18:48] LABS: FIBRIN DEGRADATION PRODUCTS 0.17 UG/ML (0.00-0.49); INR 0.9 (0.8-1.4); PROTHROMBIN TIME PATIENT 2.4 SEC (12.2-14.7)
[2021-02-19 18:49] LABS: CALCIUM 8.9 MG/DL (8.5-10.1)
[2021-02-19 18:50] LABS: GLUCOSE 106 MG/DL (70-105); TOTAL PROTEIN 7.1 GM/DL (6.4-8.2)
[2021-02-19 18:51] LABS: CARBON DIOXIDE 22 MMOL/L (21-32); ERYTHROCYTE SEDIMENTATION RATE 8 MM/HR (0-30)
[2021-02-19 18:52] LABS: BILIRUBIN,TOTAL 0.3 MG/DL (0.1-1.0)
[2021-02-19 18:53] LABS: ALKALINE PHOSPHATASE 80 U/L (40-136)
[2021-02-19 18:54] LABS: CREATININE SERUM 0.76 MG/DL (0.60-1.30); GFR ESTIMATED 78
[2021-02-19 18:55] LABS: BUN/CREATININE RATIO 14
[2021-02-19 18:56] LABS: ALANINE AMINOTRANSFERASE 24 U/L (0-55)
[2021-02-19 18:57] LABS: MAGNESIUM 2.3 MG/DL (1.6-2.4)
[2021-02-19 18:58] LABS: CREATINE KINASE 90 U/L (29-168); LIPASE 39 U/L (8-78)
--- NOTE | 2021-02-19 18:58 | Diagnostic Imaging Report ---
INDICATION: Chest pain and shortness of breath EXAM: Portable chest at 6:33 PM FINDINGS: The heart size and pulmonary vascularity are normal. The lungs are clear. There are no effusions or pneumothoraces. IMPRESSION: Negative chest. Dictated by: Dictated on workstation # [id number]
[2021-02-19 19:08] LABS: CREATINE KINASE MB 1.4 NG/ML (<6.6)
[2021-02-19] MEDS ORDERED: ONDANSETRON 4 MG/2 ML (SDV) Z0FRAN IVP ONE (22:30)
[2021-02-19 23:54] VITALS: BP 113/63
[2021-02-20] VITALS (13 sets, daily range): BP systolic 93–127; BP diastolic 59–88
[2021-02-20] MEDS ORDERED: ONDANSETRON 4 MG/2 ML (SDV) Z0FRAN IVP PRN (01:30)
[2021-02-20] MEDS ORDERED: LORazepam INJ 2 MG/ML (ATIVAN) VIAL IV PRN (01:30)
[2021-02-20] MEDS ORDERED: TEMAZEPAM 15 MG (RESTORIL) CAP PO PRN (01:30)
[2021-02-20] MEDS ORDERED: morphine INJ 4 MG/ML 1 ML (VIAL/SYRINGE) IV PRN (03:00)
[2021-02-20 06:15] LABS: BASOPHILS % (AUTO) 1 % (0-10); EOSINOPHILS # (AUTO) 0.3 10^3/uL (0.0-0.3); EOSINOPHILS % (AUTO) 3 % (0-10); HEMATOCRIT 41 % (35-52); HEMOGLOBIN 13.9 g/dL (11.5-16.0); LYMPHOCYTES # (AUTO) 2.3 10^3/uL (1.0-4.0); LYMPHOCYTES % (AUTO) 27 % (12-44); MEAN CORPUSCULAR HEMOGLOBIN 30 pg (25-34); MEAN CORPUSCULAR HGB CONC 34 g/dL (32-36); MEAN CORPUSCULAR VOLUME 89 fL (80-99); MEAN PLATELET VOLUME 9.9 fL (9.0-12.2); MONOCYTES # (AUTO) 0.8 10^3/uL (0.0-1.0); MONOCYTES % (AUTO) 9 % (0-12); NEUTROPHILS % (AUTO) 59 % (42-75); PLATELET COUNT 274 10^3/uL (130-400); WHITE BLOOD COUNT 8.4 10^3/uL (4.3-11.0)
[2021-02-20] MEDS: NITROGLYCERIN 0.4 MG SL TABS BTL 25'S SL PRN ×2 (06:24→11:33)
[2021-02-20] MEDS: CATHETER FLUSH 10 ML SYR IV SCH ×3 (06:24→22:13)
[2021-02-20 06:36] LABS: CALCIUM 8.4 MG/DL (8.5-10.1); CREATININE SERUM 0.78 MG/DL (0.60-1.30)
[2021-02-20 06:37] LABS: POTASSIUM 4.8 MMOL/L (3.6-5.0)
--- NOTE | 2021-02-20 07:59 | Consultation-Cardiology ---
HPI-Cardiology Cardiology Consultation: Date of Consultation 02/20/21 Time Seen by a Provider: 08:15 Date of Admission 02-19-21 Attending Physician Wandy Samaniego DO Admitting Physician [facility] Consulting Physician Mary Vora MD HPI: Chief Complaint: Chest pain Ms. Garcia is a 55 yr old female admitted to 404 from the ED with c/o chest pain which started approx 5 days. The discomfort comes on with any exertional activity and would relieve with rest. She reports diaphoresis with the episodes. She reports yesterday she began to have pain with exertion that did not go away with rest. She reports the discomfort is mid-sternal, radiates across her chest and into her right jaw. She reports diaphoresis. She did not take any nitro at home for the discomfort. She states the pain that started yesterday would change in intensity with exertion. She states the discomfort did improve yesterday after she received nitro in the ED. She reports the discomfort has returned this morning after walking to the [place]. She reports it as mild to mod pressure this morning. She herself is concerned her discomfort is r/t coronary artery blockages and wants a cardiac cath to be done today. She reports mild to mod LE swelling. No palpitations. No syncope or near syncope. She reports she has been compliant with her medications. Review of Systems-Cardiology Review of Systems Constitutional: No chills, No fever, No lightheadedness; tiredness Eyes: No vision change Ears/Nose/Throat: No epistaxis, No recent hearing loss Respiratory: As described under HPI Cardiovascular: As described under HPI Gastrointestinal: No diarrhea; nausea; No vomiting Genitourinary: No dysuria, No hematuria Musculoskeletal: other (left knee pain) Skin: No rash on exposed areas, No ulcerations on exposed areas Psychiatric/Neurological: anxiety; No depression, No seizure, No focal weakness, No syncope Hematologic: No bleeding abnormalities PAV-Nncguq-Lymkrk Hx Patient Social History 2nd Hand Smoke Exposure: No Have you traveled recently?: No Alcohol Use?: No Pt feels they are or have been: No Immunizations Up To Date Tetanus Booster (TDap): More than 5yrs Past Medical History PMH As described under Assessment. Family Medical History Family Medical History: Family h/o father having CAD sisi his 50's. Reports brothers x 2 having CAD and AR's in thier 40's. Family History: Alcoholism G8 BROTHER, Onset:15's - 20 Arthritis 19 MOTHER, Onset:Adolescence G8 BROTHER, Onset:Adolescence G8 SISTER, Onset:25's - 30 Asthma G8 BROTHER Cataracts 19 FATHER, Onset:60 years & older Deafness or hearing loss 19 FATHER Dementia 19 FATHER Diabetes mellitus 19 MOTHER G8 BROTHER Hypertension 19 FATHER G8 BROTHER Myocardial infarction 19 FATHER, Onset:60 years & older G8 BROTHER, Onset:40's - 50 Psychosocial problem G8 BROTHER, Onset:25's - 30 Severe allergy 19 FATHER, Onset:[place] 19 MOTHER, Onset:Childhood Allergies and Home Medications Allergies Coded Allergies: nitrofurantoin (Verified Allergy, Severe, 03/02/20) shellfish derived (Verified Allergy, Severe, 03/02/20) atorvastatin (Verified Allergy, Intermediate, 03/02/20) pt states it makes her hurt all over/extreme pain Penicillins (Unverified Allergy, Mild, 06/09/08) Proton Pump Inhibitors (Verified Allergy, Unknown, ANGINA, 02/20/21) codeine (Verified Allergy, Unknown, 03/02/20) Patient Home Medication List Aspirin (Aspirin EC) 81 Mg Tablet.dr, 81 MG PO DAILY, (Reported) Entered as Reported by: ISABELLA CARDOZO on 02/20/211334 Last Action: Continued Chlorpheniramine Maleate (Chlortabs) 4 Mg Tablet, 4 MG PO Q4H PRN for ALLERGY SYMPTOMS, (Reported) Entered as Reported by: ISABELLA CARDOZO on 06/08/20 1109 Last Action: Continued Citalopram Hydrobromide (Citalopram HBr) 10 Mg Tablet, 10 MG PO HS, (Reported) Entered as Reported by: ISABELLA CARDOZO on 02/20/21 133 Last Action: Continued Clopidogrel Bisulfate (Clopidogrel) 75 Mg Tablet, 75 MG PO DAILY, (Reported) Entered as Reported by: ISABELLA CARDOZO on 02/20/211334 Last Action: Continued Diclofenac Sodium (Voltaren Arthritis Pain) 20 Gm Gel..gram., 1 APPLIC TP TID PRN for PAIN-BREAKTHROUGH, (Reported) Entered as Reported by: ISABELLA CARDOZO on 03/02/20 1138 Last Action: Continued Diphenhydramine HCl (Diphenhydramine HCl) 25 Mg Capsule, 25 MG PO QID PRN for ALLERGY SYMPTOMS, (Reported) Entered as Reported by: ISABELLA CARDOZO on 03/02/20 113 Last Action: Converted Isosorbide Mononitrate (Isosorbide Mononitrate ER) 30 Mg Tab.er.24h, 30 MG PO DAILY, (Reported) Entered as Reported by: ISABELLA CARDOZO on 02/20/211334 Last Action: Continued Levothyroxine Sodium (Levothyroxine Sodium) 50 Mcg Tablet, 50 MCG PO DAILY, (Reported) Entered as Reported by: ISABELLA CARDOZO on 02/20/211334 Last Action: Continued Magnesium Oxide (Magnesium) 250 Mg Tablet, 250 MG PO BID, (Reported) Entered as Reported by: ISABELLA CARDOZO on 03/02/20 113 Last Action: Converted Metoprolol Succinate (Metoprolol Succinate) 50 Mg Tab.er.24h, 50 MG PO DAILY, (Reported) Entered as Reported by: ISABELLA CARDOZO on 04/20/20 1600 Last Action: Continued Mv-Mn/Folic Acid/Calcium/Vit K (Women's 50 Plus Multivit Tab) 1 Each Tablet, 1 EACH PO DAILY, (Reported) Entered as Reported by: ISABELLA CARDOZO on 02/20/211334 Last Action: Converted Nitroglycerin (Nitroglycerin) 0.4 Mg Tab.subl, 0.4 MG SL UD PRN for CHEST PAIN, (Reported) Entered as Reported by: ISABELLA CARDOZO on 06/27/20 0954 Last Action: Continued Oxymetazoline HCl (Oxymetazoline HCl) 30 Ml Lillie, 1-2 SPRAYS NS UD PRN for CONGESTION, (Reported) Entered as Reported by: ISABELLA CARDOZO on 06/08/20 1109 Last Action: Continued Ranolazine (Ranolazine ER) 500 Mg Tab.er.12h, 500 MG PO BID, (Reported) Entered as Reported by: ISABELLA CARDOZO on 02/20/211334 Last Action: Continued Rosuvastatin Calcium (Rosuvastatin Calcium) 40 Mg Tablet, 40 MG PO HS, (Reported) Entered as Reported by: ISABELLA CARDOZO on 06/08/20 110 Last Action: Converted Discontinued Medications Aspirin (Aspirin EC) 325 Mg Tablet.dr, 650 MG PO BID, (Reported) Discontinued Reason: No Longer Taking Entered as Reported by: ISABELLA CARDOZO on 04/20/20 1600 Last Action: Discontinued Citalopram Hydrobromide (Celexa) 10 Mg Tablet, 10 MG PO HS, (Reported) Discontinued Reason: Duplicate Order Entered as Reported by: PETER BROWN on 06/07/20 1614 Last Action: Discontinued Clopidogrel Bisulfate (Plavix) 75 Mg Tablet, 75 MG PO DAILY, (Reported) Discontinued Reason: Duplicate Order Entered as Reported by: ISABELLA CARDOZO on 04/20/20 1600 Last Action: Discontinued Ferrous Sulfate (Iron) 325 Mg Tablet, 325 MG PO DAILY, (Reported) Discontinued Reason: No Longer Taking Entered as Reported by: ISABELLA CARDOZO on 03/02/20 113 Last Action: Discontinued Lisinopril (Lisinopril) 2.5 Mg Tablet, 2.5 MG PO DAILY, (Reported) Discontinued Reason: No Longer Taking Entered as Reported by: ISABELLA CARDOZO on 06/27/20 0954 Last Action: Discontinued Loratadine (Loratadine) 10 Mg Tablet, 10 MG PO DAILY PRN for ALLERGY SYMPTOMS, (Reported) Discontinued Reason: No Longer Taking Entered as Reported by: ISABELLA CARDOZO on 06/08/20 1109 Last Action: Discontinued Pantoprazole Sodium (Pantoprazole Sodium) 40 Mg Tablet., 40 MG PO DAILY, (Reported) Discontinued Reason: No Longer Taking Entered as Reported by: ISABELLA CARDOZO on 06/27/20 0954 Last Action: Discontinued Vitamin B Complex (B Complex) 1 Each Tablet, 1 EACH PO DAILY, (Reported) Discontinued Reason: No Longer Taking Entered as Reported by: ISABELLA CARDOZO on 03/02/20 1138 Last Action: Discontinued Physical Exam-Cardiology Physical Exam Vital Signs/I&O 02/20/21 02/21/21 02/21/21 02/21/21 23:36 01:00 04:24 07:00 Temp 36.2 36.5 Pulse 71 64 69 60 Resp 20 20 B/P (MAP) 115/77 (90) 122/75 (91) Pulse Ox 93 95 O2 Delivery Room Air Room Air 02/21/21 00:00 Intake Total 200 ml Output Total 200 ml Balance 0 ml Capillary Refill : Less Than 3 Seconds Constitutional: AAO x 3, well-developed, well-nourished HEENT: PERRL, hearing is well preserved, oral hygience is good Neck: No carotid bruit; carotid pulses are 2 + bilaterally Respiratory: No accessory muscle use, No respiratory distress; chest expansion is symmetric, chest is bilaterally symmetric, lungs clear to auscultation Cardiovascular: regular rate-rhythm; No JVD; S1 and S2 Gastrointestinal: No tender; soft, round, audible bowel sounds Extremities: no lower extremity edema bilateral Neurologic/Psychiatric: grossly intact (moves all extremities) Skin: No rash on exposed areas, No ulcerations on exposed areas Data Review Labs Laboratory Tests 02/21/21 05:31: White Blood Count 12.4H, Red Blood Count 4.88, Hemoglobin 14.6, Hematocrit 42, Mean Corpuscular Volume 86, Mean Corpuscular Hemoglobin 30, Mean Corpuscular Hemoglobin Concent 35, Red Cell Distribution Width 11.8, Platelet Count 303, Mean Platelet Volume 9.5, Immature Granulocyte % (Auto) 1, Neutrophils (%) (Auto) 88H, Lymphocytes (%) (Auto) 9L, Monocytes (%) (Auto) 3, Eosinophils (%) (Auto) 0, Basophils (%) (Auto) 0, Neutrophils # (Auto) 10.9H, Lymphocytes # (Auto) 1.1, Monocytes # (Auto) 0.4, Eosinophils # (Auto) 0.0, Basophils # (Auto) 0.0, Immature Granulocyte # (Auto) 0.1, Neutrophils % (Manual) 85, Lymphocytes % (Manual) 12, Monocytes % (Manual) 2, Band Neutrophils 1, Blood Morphology Comment NORMAL 02/21/21 06:58: Sodium Level 135, Potassium Level 4.2, Chloride Level 106, Carbon Dioxide Level 20L, Anion Gap 9, Blood Urea Nitrogen 12, Creatinine 0.72, Estimat Glomerular Filtration Rate 83, BUN/Creatinine Ratio 17, Glucose Level 144H, Calcium Level 8.6, Corrected Calcium 8.8, Total Bilirubin 0.5, Aspartate Amino Transf (AST/SGOT) 18, Alanine Aminotransferase (ALT/SGPT) 25, Alkaline Phosphatase 76, Total Protein 6.7, Albumin 3.8 Radiology NAME: LUCILA GARCIA Zach [facility] REC#: [id number] PT STATUS: REG ER : 1965 PHYSICIAN: JOSÉ RICO DO ADMIT DATE: 02/19/21/ER Signed Date of Exam:02/19/21 CHEST 1 VIEW, AP/PA ONLY INDICATION: Chest pain and shortness of breath EXAM: Portable chest at 6:33 PM FINDINGS: The heart size and pulmonary vascularity are normal. The lungs are clear. There are no effusions or pneumothoraces. IMPRESSION: Negative chest. Dictated by: Dictated on workstation # [id number] Dict: 02/19/215 Trans: 02/19/211905 [id number] Interpreted by: MICHAEL ZAMORA MD Electronically signed by: MICHAEL ZAMORA MD 02/19/211905 ECG Impression ECG Initial ECG Rhythm: Normal Sinus A/P-Cardiology Assessment/Admission Diagnosis Angina CAD - Card cath and PCI on 03/02/20: Coronary artery disease primarily consisting of 95% ostial stenosis of the left anterior descending to just past origin of large D1 to which successful balloon angioplasty was carried out with reduced the stenosis to less than 30%. Mild plaque in other cors. RCA dominant - Echocardiogram of 03-02-20 showed LVEF 60-65%. PASP 20-25 mmHg - Card cath and PCI on 04/21/20: PTCA for 95% restenosis as site of PTCA in mid LAD, just past D1, reducing the lesion to less than 10% and with normal antegrade flow, LVEDP 12 mmHg, LVEF 50-55% - Cardiac cath on 06-08-[address] Oden: Severe LAD stenosis, transferred to [facility] - Reports cardiac cath with PCI on 06-10-[address] Haywood at [facility] - Card cath on 06/26/20: Patent LAD stent, mild to mod distal CAD, anomalous high origin of RCA and mild diffuse disease of RCA, LVEDP 11 mmHg, LVEF 55-60% - Card cath 12/03/[address] Gomez at [facility] in [place], [place]: showed LAD patent stent in the prox LAD, in the mid LAD there is an 80% stenosis in small vessel no amenable to intervention. Approx 50% stenosis in the prox first diag. LVEF 675%. Medical tx was advised. HTN - controlled Scleroderma, - by history - managed by PCP Celiac dz - managed by PCP HLD - statin tx - followed by PCP H/o occular stroke Medication Intolerance/allergy - Reported allergy to ASA (however, she has been taking ASA, per her report, without difficulty) - reports h/o convulsions - Reported shellfish allergy Orthopedic H/O chronic joint pain d/t arthritis Family h/o - premature CAD (brothers x2 and father) Positional dizziness - likely d/t medications Vertigo - refer to Dr. Mack Discussion and Recomendations Angina with h/o CAD - we advise cardiac cath and she herself wishes to have a cardiac cath. We have discussed the procedure, risks, benefits and potential complications of cardiac cath with possible ad hoc coronary intervention. She provides informed consent. Continue ASA, Plavix Continue home medications Pre-med for IV dye allergy Monitor lab Further recs will be based on her hospital course We would like to thank medical services for this consult Clinical Quality Measures AMI/AHF: ASA po Prior to arrival: GERARD Ratliff Feb 20, 2021 07:59
[2021-02-20] MEDS ORDERED: NS IV 1000 ML 1,000 ML IV SCH (08:45)
[2021-02-20] MEDS ORDERED: CLOPIDOGREL 75 MG (PLAVIX) TABLET PO ONE (08:45)
[2021-02-20] MEDS ORDERED: diphenhydrAMINE 25 MG TAB (BENADRYL) PO SCH (08:45)
[2021-02-20] MEDS ORDERED: FAMOTIDINE 20 MG (PEPCID) TABLET PO SCH (08:45)
[2021-02-20] MEDS ORDERED: methylPREDNISolone 125 MG (Solu-MEDROL) VIAL IV SCH (08:45)
[2021-02-20] MEDS: CLOPIDOGREL 75 MG (PLAVIX) TABLET PO SCH (09:53)
[2021-02-20] MEDS: ASPIRIN E.C. 81 MG (ECOTRIN) TAB PO SCH (09:53)
[2021-02-20] MEDS ORDERED: HEParin (CATH LAB) 2,000 ML IV ONE (10:17)
[2021-02-20] MEDS ORDERED: LIDOCAINE 1% INJ 20 ML 20 ML VIAL ONE (10:17)
--- NOTE | 2021-02-20 10:41 | Short Stay Summary-Hospitalist ---
STEVEN FRANCIS MED STUDENT 02/20/21 1041: History of Present Illness HPI/Chief Complaint CC- Chest Pain Mrs. Garcia is a 55yo female w/ hx of multiple stents and caths that presented on 02/19 for chest pain. She states that the pain began a couple of days ago and is worse with exertion. Pain is in the Left upper chest and radiates into her back and neck. Describes the pain as burning. ROS positive for SOB, Nausea. Denies Fever, chills, abdominal pain. Her pain improved with nitro. She had a negative troponin and EKG in ER but insisted on being admitted. She is going to mobile home laborer this morning. This morning she is sitting up in bed. She states that she is feeling okay this morning and her pain only comes back when the nitro wears off. Rates about a 2 right now. She is nauseas but no vomiting. LBM was yesterday. She does have some swelling in her legs that she states is chronic for her. She is on room air. She had a chest xray that did not show any concerning findings. Source: patient Exam Limitations: no limitations Date Seen 02/20/21 Time Seen by a Provider: 08:00 Attending Physician Wandy Samaniego DO [facility] Referring Physician Date of Admission Feb 19, 2021 at 22:30 Home Medications & Allergies Home Medications Reviewed patient Home Medication Reconciliation performed by pharmacy medication reconciliations nanotechnology technician and/or nursing. Patients Allergies have been reviewed. Allergies Allergies Coded Allergies nitrofurantoin (Verified Allergy, Severe, 03/02/20) shellfish derived (Verified Allergy, Severe, 03/02/20) atorvastatin (Verified Allergy, Intermediate, 03/02/20) pt states it makes her hurt all over/extreme pain Penicillins (Unverified Allergy, Mild, 06/09/08) codeine (Verified Allergy, Unknown, 03/02/20) Past Medical/Social/Family Hx Patient Social History Tobacco Use?: No Use of E-Cig and/or Vaping dev: No Substance use?: No Alcohol Use?: No Pt stated abuse/neglect: No Immunizations Up To Date Influenza Vaccine Up-to-Date: No; Not Current First/Initial COVID19 Vaccinat: AUGUST 02 2020 Second COVID19 Vaccination Tu: AUGUST 30 2020 Tetanus Booster (TDap): Unknown Hepatitis A: Yes Hepatitis B: Yes TB Skin Test: None Current Status status: No Advance Directives: No Communicates: Verbally Primary Language: Maori Preferred Spoken Language: Maori Is interpretation needed?: No Implanted or Applied Medical D: Stents Past Medical History Systemic Sclerosis CAD HTN HLD Anxiety MDD Family Medical History Family Hx: PAST SURGICAL HISTORY: -CERVICAL SPINE SURGERY -LEFT ELBOW ULNAR NERVE SURGERY -CHOLECYSTECTOMY -CARDIAC CATHS-- -03/02/[address] VORA: CONCLUSIONS: 1. Coronary artery disease primarily consisting of 95% ostial stenosis of a first diagonal of the left anterior descending to which successful balloon angioplasty was carried out with reduced the stenosis to less than 30%. Elsewhere, the patient exhibits mild to moderate diffuse coronary plaques. 2. Normal global left ventricular systolic function with an ejection fraction of approximately 60%. 3. Elevated left ventricular end-diastolic pressure. -HAD STENT X 1 PLACED 06/10/20 AT [facility]. -LAST CARDIAC CATH DONE HERE 06/27/[address] VORA: CONCLUSIONS: 1. Mild coronary artery disease. 2. Patent stent in the mid left anterior descending artery. 3. Normal global left ventricular systolic function with ejection fraction of 55% to 60%. 4. Normal left ventricular end-diastolic pressure. Review of Systems Constitutional: No chills; dizziness; No fever, No malaise EENTM: blurred vision; No hearing loss, No eye pain, No vision loss Respiratory: No cough; dyspnea on exertion; No hemoptysis, No phlegm; short of breath; No wheezing Cardiovascular: chest pain, edema, Hx of Intervention; No palpitations, No syncope Gastrointestinal: No abdominal pain, No constipation, No diarrhea, No dysphagia, No hematemesis, No heartburn, No melena; nausea; No vomiting Genitourinary: No dysuria, No frequency, No hematuria : No Musculoskeletal: other (Pain and swelling in both legs) Skin: No lesions, No rash Psychiatric/Neurological: Headache Physical Exam Physical Exam Vital Signs Vital Signs - First Documented 02/19/21 18:05 Temp 36.0 Pulse 67 Resp 18 B/P (MAP) 130/65 (86) Pulse Ox 97 O2 Delivery Room Air Capillary Refill : Less Than 3 Seconds Height, Weight, BMI Height: '" Weight: lbs. oz. kg; 41.88 BMI Method:Estimated General Appearance: No Apparent Distress, WD/WN, Obese HEENT: PERRL/EOMI, Moist Mucous Membranes Neck: Supple Respiratory: Lungs Clear, Normal Breath Sounds, No Accessory Muscle Use, No Respiratory Distress Cardiovascular: Regular Rate, Rhythm, No Edema, No JVD, No Murmur, Normal Peripheral Pulses Gastrointestinal: Normal Bowel Sounds, No Organomegaly, No Pulsatile Mass, Non Tender, Soft Rectal: Deferred Extremity: Normal Capillary Refill, Normal Range of Motion, No Pedal Edema (WEARING COMPRESSION STOCKINGS), Calf Tenderness, Swelling Neurologic/Psychiatric: Alert, Oriented x3, Normal Mood/Affect Skin: Normal Color, Warm/Dry Results Results/Procedures Labs Laboratory Tests 02/19/21 18:15 02/20/21 05:53 Patient resulted labs reviewed. Imaging NAME: LUCILA GARCIA REC#: [id number] PT STATUS: REG ER : 1965 PHYSICIAN: JOSÉ RICO DO ADMIT DATE: 02/19/21/ER Signed Date of Exam:02/19/21 CHEST 1 VIEW, AP/PA ONLY INDICATION: Chest pain and shortness of breath EXAM: Portable chest at 6:33 PM FINDINGS: The heart size and pulmonary vascularity are normal. The lungs are clear. There are no effusions or pneumothoraces. IMPRESSION: Negative chest. 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 Conclusion Plan Chest Pain -Pain controlled with nitro -Negative troponin but can recheck -Pt will be going to mobile home laborer -Cardiology following, okay to be D/C if cleared with cards Nausea -Nausea medication -No vomiting yet -Controlled with nitro as well Hx of Multiple stents and cardiac catheterization -Pt going to mobile home laborer Hx of CAD, High Cholesterol, and HTN -Normal meds -Continue to monitor -BP controlled now 114/77 Clinical Quality Measures AMI/AHF: ASA po Prior to arrival: WANDY Arredondo DO 02/21/21 0608: History of Present Illness HPI/Chief Complaint CC: Chest pain HPI: This is a 55yoWF with a PMH of stents placed and AV malformation type of cardiac coronary artery dysfunction who presents with chest pain. She has had multiple Caths done before and nitroglycerin had helped and she will have cath by Dr. Vora today. Source: patient Exam Limitations: no limitations Past Medical/Social/Family Hx Patient Social History Marrital Status: Employed/Student: unemployed Smoking Status: Never a Smoker Past Medical History CAD Review of Systems Constitutional: see HPI Cardiovascular: chest pain Physical Exam Physical Exam General Appearance: No Apparent Distress, WD/WN, Chronically ill Eyes: Bilateral Eye Normal Inspection, Bilateral Eye PERRL HEENT: PERRL/EOMI, Normal ENT Inspection, Pharynx Normal Neck: Full Range of Motion, Normal Inspection, Non Tender, Supple, Carotid Bruit Respiratory: Chest Non Tender, Lungs Clear, Normal Breath Sounds, No Accessory Muscle Use, No Respiratory Distress Cardiovascular: Regular Rate, Rhythm, No Edema, No Gallop, No JVD, No Murmur, Normal Peripheral Pulses Gastrointestinal: Normal Bowel Sounds, No Organomegaly, No Pulsatile Mass, Non Tender, Soft Back: Normal Inspection, No CVA Tenderness, No Vertebral Tenderness Extremity: Normal Capillary Refill, Normal Inspection, Normal Range of Motion, Non Tender, No Calf Tenderness, No Pedal Edema Neurologic/Psychiatric: Alert, Oriented x3, No Motor/Sensory Deficits, Normal Mood/Affect Skin: Normal Color, Warm/Dry Lymphatic: No Adenopathy Short Stay Diagnosis Discharge Diagnosis-Short Stay Admission Diagnosis Unstable angina CAD Final Discharge Diagnosis Unstable angina CAD Conclusion Plan Cardiac cath Supervisory-Addendum Brief Verification & Attestation Participated in pt care: history, MDM, physical Personally performed: exam, history, MDM, supervision of care Care discussed with: Medical Student Procedures: n/a Results interpretation: Verified all documentation Verification and Attestation of Medical Student E/M Service A medical student performed and documented this service in my presence. I r eviewed and verified all information documented by the medical student and made modifications to such information, when appropriate. I personally performed the physical exam and medical decision making. Wandy Samaniego, Feb 21, 2021,06:07 STEVEN FRANCIS MED STUDENT Feb 20, 2021 10:41 WANDY SAMANIEGO DO Feb 21, 2021 06:08
[2021-02-20] MEDS ORDERED: CLOP75TA28 PO (13:35)
[2021-02-20] MEDS ORDERED: LEVO50TA6 PO (13:35)
[2021-02-20] MEDS ORDERED: MV-M1TAB57 PO (13:35)
[2021-02-20] MEDS ORDERED: RANO500T6 PO (13:35)
[2021-02-20] MEDS ORDERED: ISOS30TA82 PO (13:35)
[2021-02-20] MEDS ORDERED: CITA10TA9 PO (13:35)
[2021-02-20] MEDS ORDERED: ASPI-1238 PO (13:35)
[2021-02-20] MEDS ORDERED: fentaNYL INJ 100 MCG/2 ML AMP ONE (14:19)
[2021-02-20] MEDS ORDERED: methylPREDNISolone 125 MG (Solu-MEDROL) VIAL ONE (14:19)
[2021-02-20] MEDS ORDERED: MIDAZOLAM 5 MG/5 ML (VERSED) VIAL ONE (14:19)
[2021-02-20] MEDS ORDERED: diphenhydrAMINE 50 MG/ML INJ (BENADRYL) ONE (14:19)
[2021-02-20] MEDS ORDERED: FAMOTIDINE 20MG/2ML IV (PEPCID) ONE (14:19)
--- NOTE | 2021-02-20 16:05 | Consultation-Cardiology ---
HPI-Cardiology Cardiology Consultation: Date of Consultation 02/20/21 Time Seen by a Provider: 15:00 Date of Admission Attending Physician Wandy Samaniego DO Admitting Physician [facility] Consulting Physician SERENITY NINO MD, MA, FACP, FACC, [facility] [place], CCD[facility] HPI: Chief Complaint: Chest pain Ms. Garcia is a 55 yr old female admitted to [facility] from the ED with c/o chest pain which started approx 5 days. The discomfort comes on with any exertional activity and would relieve with rest. She reports diaphoresis with the episodes. She reports yesterday she began to have pain with exertion that did not go away with rest. She reports the discomfort is mid-sternal, radiates across her chest and into her right jaw. She reports diaphoresis. She did not take any nitro at home for the discomfort. She states the pain that started yesterday would change in intensity with exertion. She states the discomfort did improve yesterday after she received nitro in the ED. She reports the discomfort has returned this morning after walking to the [place]. She reports it as mild to mod pressure this morning. She herself is concerned her discomfort is r/t coronary artery blockages and wants a cardiac cath to be done today. She reports mild to mod LE swelling. No palpitations. No syncope or near syncope. She reports she has been compliant with her medications. Review of Systems-Cardiology Review of Systems Constitutional: No chills, No fever, No lightheadedness; tiredness Eyes: No vision change Ears/Nose/Throat: No epistaxis, No recent hearing loss Respiratory: As described under HPI Cardiovascular: As described under HPI Gastrointestinal: No diarrhea; nausea; No vomiting Genitourinary: No dysuria, No hematuria : No Musculoskeletal: other (left knee pain) Skin: No rash on exposed areas, No ulcerations on exposed areas Psychiatric/Neurological: anxiety; No depression, No seizure, No focal weakness, No syncope Hematologic: No bleeding abnormalities CEX-[facility] Hx Patient Social History 2nd Hand Smoke Exposure: No Have you traveled recently?: No Alcohol Use?: No Pt feels they are or have been: No Immunizations Up To Date Tetanus Booster (TDap): More than 5yrs Past Medical History PMH As described under Assessment. Family Medical History Family Medical History: Family h/o father having CAD sisi his 50's. Reports brothers x 2 having CAD and DC's in thier 40's. Family History: Alcoholism G8 BROTHER, Onset:15's - 20 Arthritis 19 MOTHER, Onset:Adolescence G8 BROTHER, Onset:Adolescence G8 SISTER, Onset:25's - 30 Asthma G8 BROTHER Cataracts 19 FATHER, Onset:60 years & older Deafness or hearing loss 19 FATHER Dementia 19 FATHER Diabetes mellitus 19 MOTHER G8 BROTHER Hypertension 19 FATHER G8 BROTHER Myocardial infarction 19 FATHER, Onset:60 years & older G8 BROTHER, Onset:40's - 50 Psychosocial problem G8 BROTHER, Onset:25's - 30 Severe allergy 19 FATHER, Onset: 19 MOTHER, Onset:Childhood Allergies and Home Medications Allergies Coded Allergies: nitrofurantoin (Verified Allergy, Severe, 03/02/20) shellfish derived (Verified Allergy, Severe, 03/02/20) atorvastatin (Verified Allergy, Intermediate, 03/02/20) pt states it makes her hurt all over/extreme pain Penicillins (Unverified Allergy, Mild, 06/09/08) Proton Pump Inhibitors (Verified Allergy, Unknown, ANGINA, 02/20/21) codeine (Verified Allergy, Unknown, 03/02/20) Patient Home Medication List Home Medication List Reviewed: Yes Aspirin (Aspirin EC) 81 Mg Tablet.dr, 81 MG PO DAILY, (Reported) Entered as Reported by: ISABELLA CARDOZO on 02/20/211334 Last Action: Reviewed Chlorpheniramine Maleate (Chlortabs) 4 Mg Tablet, 4 MG PO Q4H PRN for ALLERGY SYMPTOMS, (Reported) Entered as Reported by: ISABELLA CARDOZO on 06/08/20 1109 Last Action: Reviewed Citalopram Hydrobromide (Citalopram HBr) 10 Mg Tablet, 10 MG PO HS, (Reported) Entered as Reported by: ISABELLA CARDOZO on 02/20/21 133 Last Action: Reviewed Clopidogrel Bisulfate (Clopidogrel) 75 Mg Tablet, 75 MG PO DAILY, (Reported) Entered as Reported by: ISABELLA CARDOZO on 02/20/211334 Last Action: Reviewed Diclofenac Sodium (Voltaren Arthritis Pain) 20 Gm Gel..gram., 1 APPLIC TP TID PRN for PAIN-BREAKTHROUGH, (Reported) Entered as Reported by: ISABELLA CARDOZO on 03/02/201137 Last Action: Reviewed Diphenhydramine HCl (Diphenhydramine HCl) 25 Mg Capsule, 25 MG PO QID PRN for ALLERGY SYMPTOMS, (Reported) Entered as Reported by: ISABELLA CARDOZO on 03/02/201137 Last Action: Reviewed Isosorbide Mononitrate (Isosorbide Mononitrate ER) 30 Mg Tab.er.24h, 30 MG PO DAILY, (Reported) Entered as Reported by: ISABELLA CARDOZO on 02/20/211334 Last Action: Reviewed Levothyroxine Sodium (Levothyroxine Sodium) 50 Mcg Tablet, 50 MCG PO DAILY, (Reported) Entered as Reported by: ISABELLA CARDOZO on 02/20/211334 Last Action: Reviewed Magnesium Oxide (Magnesium) 250 Mg Tablet, 250 MG PO BID, (Reported) Entered as Reported by: ISABELLA CARDOZO on 03/02/201137 Last Action: Reviewed Metoprolol Succinate (Metoprolol Succinate) 50 Mg Tab.er.24h, 50 MG PO DAILY, (Reported) Entered as Reported by: ISABELLA CARDOZO on 04/20/20 1600 Last Action: Reviewed Mv-Mn/Folic Acid/Calcium/Vit K (Women's 50 Plus Multivit Tab) 1 Each Tablet, 1 EACH PO DAILY, (Reported) Entered as Reported by: ISABELLA CARDOZO on 02/20/211334 Last Action: Reviewed Nitroglycerin (Nitroglycerin) 0.4 Mg Tab.subl, 0.4 MG SL UD PRN for CHEST PAIN, (Reported) Entered as Reported by: ISABELLA CARDOZO on 06/27/20 0954 Last Action: Reviewed Oxymetazoline HCl (Oxymetazoline HCl) 30 Ml [place], 1-2 SPRAYS NS UD PRN for CONGESTION, (Reported) Entered as Reported by: ISABELLA CARDOZO on 06/08/20 110 Last Action: Reviewed Ranolazine (Ranolazine ER) 500 Mg Tab.er.12h, 500 MG PO BID, (Reported) Entered as Reported by: ISABELLA CARDOZO on 02/20/211334 Last Action: Reviewed Rosuvastatin Calcium (Rosuvastatin Calcium) 40 Mg Tablet, 40 MG PO HS, (Reported) Entered as Reported by: ISABELLA CARDOZO on 06/08/20 110 Last Action: Reviewed Discontinued Medications Aspirin (Aspirin EC) 325 Mg Tablet., 650 MG PO BID, (Reported) Discontinued Reason: No Longer Taking Entered as Reported by: ISABELLA CARDOZO on 04/20/20 1600 Last Action: Discontinued Citalopram Hydrobromide (Celexa) 10 Mg Tablet, 10 MG PO HS, (Reported) Discontinued Reason: Duplicate Order Entered as Reported by: PETER BROWN on 06/07/20 1614 Last Action: Discontinued Clopidogrel Bisulfate (Plavix) 75 Mg Tablet, 75 MG PO DAILY, (Reported) Discontinued Reason: Duplicate Order Entered as Reported by: ISABELLA CARDOZO on 04/20/20 1600 Last Action: Discontinued Ferrous Sulfate (Iron) 325 Mg Tablet, 325 MG PO DAILY, (Reported) Discontinued Reason: No Longer Taking Entered as Reported by: ISABELLA CARDOZO on 03/02/20 113 Last Action: Discontinued Lisinopril (Lisinopril) 2.5 Mg Tablet, 2.5 MG PO DAILY, (Reported) Discontinued Reason: No Longer Taking Entered as Reported by: ISABELLA CARDOZO on 06/27/20 0954 Last Action: Discontinued Loratadine (Loratadine) 10 Mg Tablet, 10 MG PO DAILY PRN for ALLERGY SYMPTOMS, (Reported) Discontinued Reason: No Longer Taking Entered as Reported by: ISABELLA CARDOZO on 06/08/20 110 Last Action: Discontinued Pantoprazole Sodium (Pantoprazole Sodium) 40 Mg Tablet., 40 MG PO DAILY, (Reported) Discontinued Reason: No Longer Taking Entered as Reported by: ISABELLA CARDOZO on 06/27/20 0954 Last Action: Discontinued Vitamin B Complex (B Complex) 1 Each Tablet, 1 EACH PO DAILY, (Reported) Discontinued Reason: No Longer Taking Entered as Reported by: ISABELLA CARDOZO on 03/02/20 1138 Last Action: Discontinued Physical Exam-Cardiology Physical Exam Vital Signs/I&O 02/20/21 02/20/21 02/20/21 02/20/21 04:54 07:00 08:00 08:00 Temp 36.1 Pulse 53 80 51 Resp 18 20 B/P (MAP) 114/77 (89) 125/75 (92) Pulse Ox 95 96 O2 Delivery Room Air Room Air Room Air 02/20/21 02/20/21 12:00 12:47 Temp 35.8 Pulse 55 55 Resp 20 B/P (MAP) 127/82 (97) Pulse Ox 97 O2 Delivery Room Air Capillary Refill : Less Than 3 Seconds Constitutional: AAO x 3, well-developed, well-nourished HEENT: PERRL, hearing is well preserved, oral hygience is good Neck: No carotid bruit; carotid pulses are 2 + bilaterally Respiratory: No accessory muscle use, No respiratory distress; chest expansion is symmetric, chest is bilaterally symmetric, lungs clear to auscultation Cardiovascular: regular rate-rhythm; No JVD; S1 and S2 Gastrointestinal: No tender; soft, round, audible bowel sounds Extremities: no lower extremity edema bilateral Neurologic/Psychiatric: grossly intact (moves all extremities) Skin: No rash on exposed areas, No ulcerations on exposed areas Data Review Labs Laboratory Tests 02/19/21 18:15: White Blood Count 9.5, Red Blood Count 4.92, Hemoglobin 14.9, Hematocrit 44, Mean Corpuscular Volume 89, Mean Corpuscular Hemoglobin 30, Mean Corpuscular Hemoglobin Concent 34, Red Cell Distribution Width 12.1, Platelet Count 320, Mean Platelet Volume 9.4, Immature Granulocyte % (Auto) 0, Neutrophils (%) (Auto) 59, Lymphocytes (%) (Auto) 25, Monocytes (%) (Auto) 12, Eosinophils (%) (Auto) 3, Basophils (%) (Auto) 0, Neutrophils # (Auto) 5.6, Lymphocytes # (Auto) 2.4, Monocytes # (Auto) 1.1H, Eosinophils # (Auto) 0.3, Basophils # (Auto) 0.0, Immature Granulocyte # (Auto) 0.0, Erythrocyte Sedimentation Rate 8, Prothrombin Time 2.4L, INR Comment 0.9, Activated Partial Thromboplast Time 25, D-Dimer 0.17, Sodium Level 138, Potassium Level 4.1, Chloride Level 104, Carbon Dioxide Level 22, Anion Gap 12, Blood Urea Nitrogen 11, Creatinine 0.76, Estimat Glomerular Filtration Rate 78, BUN/Creatinine Ratio 14, Glucose Level 106H, Calcium Level 8.9, Corrected Calcium 8.9, Magnesium Level 2.3, Total Bilirubin 0.3, Aspartate Amino Transf (AST/SGOT) 21, Alanine Aminotransferase (ALT/SGPT) 24, Alkaline Phosphatase 80, Lactate Dehydrogenase 244H, Total Creatine Kinase 90, Creatine Kinase MB 1.4, Troponin I < 0.028, C-Reactive Protein High Sensitivity 0.13, B-Type Natriuretic Peptide 40.6, Total Protein 7.1, Albumin 4.0, Lipase 39, Influenza Type A (RT-PCR) Not Detected, Influenza Type B (RT- PCR) Not Detected, SARS-CoV-2 RNA (RT-PCR) Not Detected 02/19/21 21:45: Troponin I < 0.028 02/20/21 00:50: Troponin I < 0.028 02/20/21 05:53: White Blood Count 8.4, Red Blood Count 4.61, Hemoglobin 13.9, Hematocrit 41, Mean Corpuscular Volume 89, Mean Corpuscular Hemoglobin 30, Mean Corpuscular Hemoglobin Concent 34, Red Cell Distribution Width 12.3, Platelet Count 274, Mean Platelet Volume 9.9, Immature Granulocyte % (Auto) 0, Neutrophils (%) (Auto) 59, Lymphocytes (%) (Auto) 27, Monocytes (%) (Auto) 9, Eosinophils (%) (Auto) 3, Basophils (%) (Auto) 1, Neutrophils # (Auto) 5.0, Lymphocytes # (Auto) 2.3, Monocytes # (Auto) 0.8, Eosinophils # (Auto) 0.3, Basophils # (Auto) 0.0, Immature Granulocyte # (Auto) 0.0, Prothrombin Time 13.0, INR Comment 1.0, Activated Partial Thromboplast Time 32, Sodium Level 136, Potassium Level 4.8, Chloride Level 102, Carbon Dioxide Level 23, Anion Gap 11, Blood Urea Nitrogen 12, Creatinine 0.78, Estimat Glomerular Filtration Rate 76, BUN/Creatinine Ratio 15, Glucose Level 108H, Calcium Level 8.4L, Triglycerides Level 129, Cholesterol Level 138, LDL Cholesterol Direct 76, VLDL Cholesterol 26, HDL Cholesterol 43 A/P-Cardiology Assessment/Admission Diagnosis Chest discomfort w/o any evidence of ACS, likely noncardiac (normal serial cardiac enzymes and no evidence of any acute or severe lesions on card cath of 02/20/21 CAD - Card cath and PCI on 03/02/20: Coronary artery disease primarily consisting of 95% ostial stenosis of the left anterior descending to just past origin of large D1 to which successful balloon angioplasty was carried out with reduced the stenosis to less than 30%. Mild plaque in other cors. RCA dominant - Echocardiogram of 03-02-20 showed LVEF 60-65%. PASP 20-25 mmHg - Card cath and PCI on 04/21/20: PTCA for 95% restenosis at site of PTCA in mid LAD, just past D1, reducing the lesion to less than 10% and with normal antegrade flow, LVEDP 12 mmHg, LVEF 50-55% - Cardiac cath on 06-08-[address] Oden: Severe LAD stenosis, transferred to [facility] - Reports cardiac cath with PCI on 06-10-[address] 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 Gomez at [facility] in [place], [place]: showed LAD patent stent in the prox LAD, in the mid LAD there is an 80% stenosis in small vessel no amenable to intervention. Approx 50% stenosis in the prox first diag. LVEF 675%. Medical tx was advised. 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, LVEDP 13 mmHg, LVEF 60% HTN - controlled Scleroderma, - by history - managed by PCP Celiac dz - managed by PCP HLD - statin tx - followed by PCP H/o occular stroke Medication Intolerance/allergy - Reported allergy to ASA (however, she has been taking ASA, per her report, without difficulty) - reports h/o convulsions - Reported shellfish allergy Orthopedic H/O chronic joint pain d/t arthritis Family h/o - premature CAD (brothers x2 and father) Dizziness and vertigo - managed by pcp Discussion and Recomendations We recommended and discussed risk factor mod Continue ASA, Plavix Continue home medications Ok to d/c from cardiac standpoint Outpt cardiac f/u advised Clinical Quality Measures AMI/AHF: ASA po Prior to arrival: SERENITY Stout MD FACP FAC CCDS Feb 20, 2021 16:05
--- NOTE | 2021-02-20 16:18 | Cardiac Procedure Note-CS/ASA ---
Pre-Procedure Note Pre-Op Procedure Note H&P Reviewed The H&P was reviewed, patient examined and no changes noted. Date H&P Reviewed: Feb 20, 2021 Time H&P Reviewed: 15:00 Conscious Sedation Pre-Proced Time 15:00 ASA Score 3 For ASA 3 and 4: Consider anesthesia and medical clearance. Also, for patients with a history of failed moderate sedation consider anesthesia. Airway Lungs Heart ASA score ASA 1: a normal healthy patient ASA 2: a patient with a mild systemic disease (mid diabetes, controlled hypertension, obesity ASA 3: a patient with a severe systemic disease that limits activity (angina, COPD, prior Myocardial infarction) ASA 4: a patient with an incapacitating disease that is a constant threat to life (CHF, renal failure) ASA 5: a moribund patient not expected to survive 24 hrs. (ruptured aneurysm) ASA 6: a declared brain- patient whose organs are being harvested. For emergent operations, add the letter E after the classification Mallampati Classification Grade 2 Sedation Plan Analgesia, Amnesia, Plan communicated to team members, Discussed options with patient/fam, Discussed risks with patient/fam The patient is an appropriate candidate to undergo the planned procedure, sedation, and anesthesia. The patient immediately re-assessed prior to indication. SERENITY NINO MD FACP FAC CCDS Feb 20, 2021 16:18
[2021-02-20] MEDS ORDERED: CHLORPHENIRAMINE 4 MG TAB (NON-FORMULARY) PO PRN (20:15)
[2021-02-20] MEDS ORDERED: DICLOFENAC 1% GEL 100 GM (VOLTAREN) TUBE TP PRN (20:15)
[2021-02-20] MEDS ORDERED: OXYMETAZOLINE (AFRIN) 0.05% NA 30 ML BTL NS PRN (20:15)
[2021-02-20] MEDS ORDERED: NITROGLYCERIN 0.4 MG SL TABS BTL 25'S SL PRN (20:15)
[2021-02-20] MEDS ORDERED: ROSUVASTATIN 10 MG (CRESTOR) TABLET PO SCH (21:49)
[2021-02-20] MEDS: MAGNESIUM OXIDE (MAG-OX)400 MG TAB PO SCH (22:13)
[2021-02-20] MEDS: RANOLAZINE ER 500 MG TAB (RANEXA) PO SCH (22:13)
[2021-02-20] MEDS ORDERED: diphenhydrAMINE 25 MG TAB (BENADRYL) PO PRN (22:45)
[2021-02-21 04:24] VITALS: BP 122/75
[2021-02-21] MEDS: CATHETER FLUSH 10 ML SYR IV SCH (05:13)
[2021-02-21] MEDS ORDERED: LEVOTHYROXINE 50 MCG (LEVOTHROID) TAB PO SCH (07:00)
[2021-02-21 07:07] LABS: BASOPHILS % (AUTO) 0 % (0-10); EOSINOPHILS % (AUTO) 0 % (0-10); HEMATOCRIT 42 % (35-52); HEMOGLOBIN 14.6 g/dL (11.5-16.0); LYMPHOCYTES # (AUTO) 1.1 10^3/uL (1.0-4.0); LYMPHOCYTES % (AUTO) 9 % (12-44); MEAN CORPUSCULAR HEMOGLOBIN 30 pg (25-34); MEAN CORPUSCULAR HGB CONC 35 g/dL (32-36); MEAN CORPUSCULAR VOLUME 86 fL (80-99); MEAN PLATELET VOLUME 9.5 fL (9.0-12.2); MONOCYTES # (AUTO) 0.4 10^3/uL (0.0-1.0); MONOCYTES % (AUTO) 3 % (0-12); NEUTROPHILS # (AUTO) 10.9 10^3/uL (1.8-7.8); NEUTROPHILS % (AUTO) 88 % (42-75); PLATELET COUNT 303 10^3/uL (130-400); WHITE BLOOD COUNT 12.4 10^3/uL (4.3-11.0)
[2021-02-21 07:40] LABS: ALBUMIN 3.8 GM/DL (3.2-4.5); BILIRUBIN,TOTAL 0.5 MG/DL (0.1-1.0); CALCIUM 8.6 MG/DL (8.5-10.1); CREATININE SERUM 0.72 MG/DL (0.60-1.30); POTASSIUM 4.2 MMOL/L (3.6-5.0); TOTAL PROTEIN 6.7 GM/DL (6.4-8.2)
[2021-02-21 07:50] LABS: BAND NEUTROPHILS 1 %; LYMPHOCYTES % (MANUAL) 12 %; MONOCYTES % (MANUAL) 2 %; NEUTROPHILS % (MANUAL) 85 %; RBC MORPH NORMAL
[2021-02-21 08:00] VITALS: BP 127/77
[2021-02-21] MEDS: MAGNESIUM OXIDE (MAG-OX)400 MG TAB PO SCH (08:39)
[2021-02-21] MEDS: ASPIRIN E.C. 81 MG (ECOTRIN) TAB PO SCH (08:39)
[2021-02-21] MEDS: CLOPIDOGREL 75 MG (PLAVIX) TABLET PO SCH (08:39)
[2021-02-21] MEDS: RANOLAZINE ER 500 MG TAB (RANEXA) PO SCH (08:39)
[2021-02-21] MEDS ORDERED: MULTIVIT W/MINERALS TAB (THERAGRAN M) PO SCH (09:00)
[2021-02-21] MEDS ORDERED: meTOproloL SUCCINATE 50 MG (TOPROL XL) TAB PO SCH (09:00)
[2021-02-21] MEDS ORDERED: ASPIRIN E.C. 81 MG (ECOTRIN) TAB PO SCH (09:00)
[2021-02-21] MEDS ORDERED: CLOPIDOGREL 75 MG (PLAVIX) TABLET PO SCH (09:00)
[2021-02-21] MEDS ORDERED: ISOSORBIDE MONONITRATE 30 MG (IMDUR) TAB PO SCH (09:00)
--- NOTE | 2021-02-21 09:32 | Discharge Summary ---
Discharge Summary Hospital Course Was the Problem List Reviewed?: Yes Problems/Dx: (1) Unstable angina (2) CAD (coronary artery disease) Status: Acute Hospital Course Date of Admission: Feb 19, 2021 at 22:30 Admission Diagnosis : Family Physician/Provider: Madison Capellan Aprn Date of Discharge: 02/21/21 Discharge Diagnosis: Unstable angina, known CAD with recent stents Hospital Course: Hospital course: Pt had an uneventful three day hospital course after she was admitted for chest pain, previous stents, underwent a cardiac catheterization with no intervention performed so she was placed back on all of her home medication and felt like she was ready for discharge. Labs and Pending Lab Test: Laboratory Tests 02/21/21 05:31: White Blood Count 12.4H, Red Blood Count 4.88, Hemoglobin 14.6, Hematocrit 42, Mean Corpuscular Volume 86, Mean Corpuscular Hemoglobin 30, Mean Corpuscular Hemoglobin Concent 35, Red Cell Distribution Width 11.8, Platelet Count 303, Mean Platelet Volume 9.5, Immature Granulocyte % (Auto) 1, Neutrophils (%) (Auto) 88H, Lymphocytes (%) (Auto) 9L, Monocytes (%) (Auto) 3, Eosinophils (%) (Auto) 0, Basophils (%) (Auto) 0, Neutrophils # (Auto) 10.9H, Lymphocytes # (Auto) 1.1, Monocytes # (Auto) 0.4, Eosinophils # (Auto) 0.0, Basophils # (Auto) 0.0, Immature Granulocyte # (Auto) 0.1, Neutrophils % (Manual) 85, Lymphocytes % (Manual) 12, Monocytes % (Manual) 2, Band Neutrophils 1, Blood Morphology Comment NORMAL 02/21/21 06:58: Sodium Level 135, Potassium Level 4.2, Chloride Level 106, Carbon Dioxide Level 20L, Anion Gap 9, Blood Urea Nitrogen 12, Creatinine 0.72, Estimat Glomerular Filtration Rate 83, BUN/Creatinine Ratio 17, Glucose Level 144H, Calcium Level 8.6, Corrected Calcium 8.8, Total Bilirubin 0.5, Aspartate Amino Transf (AST/SGOT) 18, Alanine Aminotransferase (ALT/SGPT) 25, Alkaline Phosphatase 76, Total Protein 6.7, Albumin 3.8 Home Meds Active Reported Women's 50 Plus Multivit Tab (Mv-Mn/Folic Acid/Calcium/Vit K) 1 Each Tablet 1 Each PO DAILY Citalopram HBr (Citalopram Hydrobromide) 10 Mg Tablet 10 Mg PO HS Clopidogrel (Clopidogrel Bisulfate) 75 Mg Tablet 75 Mg PO DAILY Ranolazine ER (Ranolazine) 500 Mg Tab.er.12h 500 Mg PO BID Isosorbide Mononitrate ER (Isosorbide Mononitrate) 30 Mg Tab.er.24h 30 Mg PO DAILY Aspirin EC (Aspirin) 81 Mg Tablet.dr 81 Mg PO DAILY Levothyroxine Sodium 50 Mcg Tablet 50 Mcg PO DAILY Nitroglycerin 0.4 Mg Tab.subl 0.4 Mg SL UD PRN Oxymetazoline HCl 30 Ml [place] 1-2 Sprays NS UD PRN Chlortabs (Chlorpheniramine Maleate) 4 Mg Tablet 4 Mg PO Q4H PRN Rosuvastatin Calcium 40 Mg Tablet 40 Mg PO HS Metoprolol Succinate 50 Mg Tab.er.24h 50 Mg PO DAILY Voltaren Arthritis Pain (Diclofenac Sodium) 20 Gm Gel..gram. 1 Applic TP TID PRN Diphenhydramine HCl 25 Mg Capsule 25 Mg PO QID PRN Magnesium (Magnesium Oxide) 250 Mg Tablet 250 Mg PO BID Assessment/Pt Instructions PCP in 2 weeks Discharge Planning: <30 minutes discharge planning Discharge Physical Examination Vital Signs Vital Signs Date Time Temp Pulse Resp B/P (MAP) Pulse Ox O2 Delivery O2 Flow Rate FiO2 02/21/21 08:00 36.3 66 20 127/77 (94) 95 Room Air General Appearance: No Apparent Distress, WD/WN, Chronically ill Allergies: Coded Allergies: nitrofurantoin (Verified Allergy, Severe, 03/02/20) shellfish derived (Verified Allergy, Severe, 03/02/20) atorvastatin (Verified Allergy, Intermediate, 03/02/20) pt states it makes her hurt all over/extreme pain Penicillins (Unverified Allergy, Mild, 06/09/08) Proton Pump Inhibitors (Verified Allergy, Unknown, ANGINA, 02/20/21) codeine (Verified Allergy, Unknown, 03/02/20) Discharge Summary Date of Admission Feb 19, 2021 at 22:30 Date of Discharge Discharge Date: Feb 21, 2021 Admission Diagnosis Unstable angina CAD Discharge Diagnosis Cardiac cath Clinical Quality Measures AMI/AHF: ASA po Prior to arrival: LULU Arredondo DO Feb 21, 2021 09:32
[2021-02-21 12:00] VITALS: BP 115/78
== END 2021-02-21 16:51 | disposition home or self-care (01) ==
LOC: EDUNIT# 17:59 → ER 18:02 → 4TH 22:30 → CSD 02-20 15:55 → 4TH 02-20 19:00
PROVIDERS: ADMIT Internal Medicine; ATTEND Internal Medicine
DX: R07.89 Other chest pain (principal); Z79.899 Other long term (current) drug therapy; Z79.82 Long term (current) use of aspirin; Z79.02 Long term (current) use of antithrombotics/antiplatelets; Z79.891 Long term (current) use of opiate analgesic; I25.2 Old myocardial infarction; I25.10 Atherosclerotic heart disease of native coronary artery without angina pectoris; I10 Essential (primary) hypertension; E78.00 Pure hypercholesterolemia, unspecified; G43.909 Migraine, unspecified, not intractable, without status migrainosus; M06.9 Rheumatoid arthritis, unspecified
CPT/HCPCS: 71045; 80048; 80053 ×2; 80061; 82550; 82553; 83615; 83690; 83735; 83880; 84484 ×2; 85007; 85025 ×2; 85027; 85379; 85610 ×2; 85652; 85730 ×2; 86141; 87081; 87636; 93005 ×3; 93041; 93458; 99284; C1894; G0378; 36415

== ENCOUNTER → 2021-04-30 | Outpatient (RCR) | payer MEDICARE, MEDICAID ==
[~2021-04-30] MED LIST changes: +CITA10TA9 PO; +ISOS30TA82 PO; +LEVO50TA6 PO; +MV-M1TAB57 PO; +RANO500T6 PO
== END | disposition home or self-care (01) ==
LOC: CR 04-11 08:34
PROVIDERS: ATTEND Internal Medicine Cardiovascular Disease
DX: Z29.8 Encounter for other specified prophylactic measures (principal); I25.118 Atherosclerotic heart disease of native coronary artery with other forms of angina pectoris; Z95.5 Presence of coronary angioplasty implant and graft
CPT/HCPCS: 93798

== ENCOUNTER 2021-05-30 09:06 | Outpatient (RCR) | payer MEDICARE, MEDICAID | END 2021-05-31 | disposition home or self-care (01) | LOC: CR 09:06 | PROVIDERS: ATTEND Internal Medicine Cardiovascular Disease | DX: Z29.8 Encounter for other specified prophylactic measures (principal); I25.118 Atherosclerotic heart disease of native coronary artery with other forms of angina pectoris; Z95.5 Presence of coronary angioplasty implant and graft | CPT/HCPCS: 93798 ==

== ENCOUNTER 2021-06-27 09:16 | Outpatient (RCR) | payer MEDICARE, MEDICAID ==
[~2021-06-27 09:16] MED LIST changes: +FURO-125 PO
== END 2021-06-30 | disposition home or self-care (01) ==
LOC: CR 09:16
PROVIDERS: ATTEND Internal Medicine Cardiovascular Disease
DX: Z29.8 Encounter for other specified prophylactic measures (principal); I25.118 Atherosclerotic heart disease of native coronary artery with other forms of angina pectoris; Z95.5 Presence of coronary angioplasty implant and graft
CPT/HCPCS: 93798

== ENCOUNTER 2021-07-18 09:18 | Observation (INO) | payer MEDICARE, MEDICAID ==
[~2021-07-18] VITALS: Ht 154 cm; Wt 106.8 kg
--- NOTE | 2021-07-18 09:54 | ED Chest Pain ---
General Chief Complaint: Cardiac/General Problems Stated Complaint: HIGH BP Source: patient Exam Limitations: no limitations History of Present Illness Date Seen by Provider: July 18, 2021 Time Seen by Provider: 09:42 Initial Comments Patient is a 55-year-old female who presents to the emergency room, directed from cardiac rehab chief complaint of elevated blood pressure and also some chest pain and pressure. Patient tells me her blood pressure at cardiac rehab prior to exerting herself was in the 160s systolic. Patient states that she has a history of cardiac stenting in March 2020. She sees Dr. Vora. She states she last saw him in clinic on Friday she had a carotid ultrasound study done that day as well. Patient endorses a little chest discomfort yesterday with light housework. This morning at 730 she woke up with chest discomfort. She states it radiates up into her neck, the left side as well as into her throat. She denies any recent illnesses such as fevers, chills, cough. She feels a little short of breath currently with nausea. She states walking into the emergency department check-in seem to make her discomfort worse. She rates it currently at a "7 or 8". She has been compliant with her daily medications to include blood thinner and antiplatelet therapy. She does not smoke. All other review of systems reviewed and negative except as stated. 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 NTG SL MUSIC REHABILITATION THERAPIST: No Associated Symptoms: nausea/vomiting, shortness of breath, weakness Allergies and Home Medications Allergies Coded Allergies: nitrofurantoin (Verified Allergy, Severe, 03/02/20) shellfish derived (Verified Allergy, Severe, 03/02/20) atorvastatin (Verified Allergy, Intermediate, 03/02/20) pt states it makes her hurt all over/extreme pain Penicillins (Unverified Allergy, Mild, 06/09/08) Proton Pump Inhibitors (Verified Allergy, Unknown, ANGINA, 02/20/21) codeine (Verified Allergy, Unknown, 03/02/20) Patient Home Medication List Home Medication List Reviewed: Yes Aspirin (Aspirin EC) 81 Mg Elizabeth., 81 MG PO DAILY, (Reported) Entered as Reported by: ISABELLA CARDOZO on 02/20/21 1335 Chlorpheniramine Maleate (Chlortabs) 4 Mg Tablet, 4 MG PO Q4H PRN for ALLERGY SYMPTOMS, (Reported) Entered as Reported by: ISABELLA CARDOZO on 06/08/20 1109 Citalopram Hydrobromide (Citalopram HBr) 10 Mg Tablet, 10 MG PO HS, (Reported) Entered as Reported by: ISABELLA CARDOZO on 02/20/21 1335 Clopidogrel Bisulfate (Clopidogrel) 75 Mg Tablet, 75 MG PO DAILY, (Reported) Entered as Reported by: ISABELLA CARDOZO on 02/20/21 1335 Diclofenac Sodium (Voltaren Arthritis Pain) 20 Gm Gel..gram., 1 APPLIC TP TID PRN for PAIN-BREAKTHROUGH, (Reported) Entered as Reported by: ISABELLA CARDOZO on 03/02/20 1138 Diphenhydramine HCl (Diphenhydramine HCl) 25 Mg Capsule, 25 MG PO QID PRN for ALLERGY SYMPTOMS, (Reported) Entered as Reported by: ISABELLA CARDOZO on 03/02/20 1138 Furosemide (Lasix) 20 Mg Tablet, 20 MG PO DAILY PRN for fluid retention Prescribed by: JORDI AGUILAR on 06/08/21 1657 Isosorbide Mononitrate (Isosorbide Mononitrate ER) 30 Mg Tab.er.24h, 30 MG PO DAILY, (Reported) Entered as Reported by: ISABELLA CARDOZO on 02/20/21 1335 Levothyroxine Sodium (Levothyroxine Sodium) 50 Mcg Tablet, 50 MCG PO DAILY, (Reported) Entered as Reported by: ISABELLA CARDOZO on 02/20/21 1335 Magnesium Oxide (Magnesium) 250 Mg Tablet, 250 MG PO BID, (Reported) Entered as Reported by: ISABELLA CARDOZO on 03/02/20 1138 Metoprolol Succinate (Metoprolol Succinate) 50 Mg Tab.er.24h, 50 MG PO DAILY, (Reported) Entered as Reported by: ISABELLA CARDOZO on 04/20/20 1600 Mv-Mn/Folic Acid/Calcium/Vit K (Women's 50 Plus Multivit Tab) 1 Each Tablet, 1 EACH PO DAILY, (Reported) Entered as Reported by: ISABELLA CARDOZO on 02/20/21 1335 Nitroglycerin (Nitroglycerin) 0.4 Mg Tab.subl, 0.4 MG SL UD PRN for CHEST PAIN, (Reported) Entered as Reported by: ISABELLA CARDOZO on 06/27/20 0954 Oxymetazoline HCl (Oxymetazoline HCl) 30 Ml [place], 1-2 SPRAYS NS UD PRN for CONGESTION, (Reported) Entered as Reported by: ISABELLA CARDOZO on 06/08/20 1109 Ranolazine (Ranolazine ER) 500 Mg Tab.er.12h, 500 MG PO BID, (Reported) Entered as Reported by: ISABELLA CARDOZO on 02/20/21 1335 Rosuvastatin Calcium (Rosuvastatin Calcium) 40 Mg Tablet, 40 MG PO HS, (Reported) Entered as Reported by: ISABELLA CARDOZO on 06/08/20 1109 Review of Systems Review of Systems Constitutional: see HPI EENTM: Throat Pain Respiratory: Shortness of Air Cardiovascular: Chest Pain Gastrointestinal: Nausea Genitourinary: No Symptoms Reported Musculoskeletal: no symptoms reported, other (swelling in her fingers/hands) Skin: no symptoms reported Psychiatric/Neurological: No Symptoms Reported All Other Systems Reviewed Negative Unless Noted: Yes Past Bmrljxi-Aeojkh-Emkzjk Hx Immunizations Up To Date Tetanus Booster (TDap): More than 5yrs First/Initial COVID19 Vaccinat: RECEIVED, UNK WHEN Second COVID19 Vaccination Tu: AUGUST 30 2020 Seasonal Allergies Seasonal Allergies: Yes Past Medical History Surgeries: Yes (C-SPINE SURGERY; LEFT ELBOW ULNAR NERVE SURGERY;CARDIAC CATH- STENT X 1) Cardiac, Coronary Stent, Gallbladder, Orthopedic Respiratory: Yes Asthma Cardiac: Yes ([place] X 2 ; STENT X 1) Chronic Edema/Swelling, Coronary Artery Disease, Heart Attack, High Cholesterol, Hypertension Neurological: Yes 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 Genitourinary: No Gastrointestinal: Yes (S/P CHOLECYSTECTOMY; CELIAC DISEASE) Gall Bladder Disease Musculoskeletal: Yes (SCLERODERMA; C-SPINE SURGERY; LEFT ELBOW ULNAR NERVE GARZA RGERY) Rheumatoid Arthritis Endocrine: No HEENT: Yes (SINUS PROBLEMS) Cancer: No Psychosocial: Yes Anxiety, Depression Integumentary: Yes Psoriasis Blood Disorders: No Family Medical History Alcoholism G8 BROTHER, Onset:15's - 20 Arthritis 19 MOTHER, Onset:Adolescence G8 BROTHER, Onset:Adolescence G8 SISTER, Onset:25's - 30 Asthma G8 BROTHER Cataracts 19 FATHER, Onset:60 years & older Deafness or hearing loss 19 FATHER Dementia 19 FATHER Diabetes mellitus 19 MOTHER G8 BROTHER Hypertension 19 FATHER G8 BROTHER Myocardial infarction 19 FATHER, Onset:60 years & older G8 BROTHER, Onset:40's - 50 Psychosocial problem G8 BROTHER, Onset:25's - 30 Severe allergy 19 FATHER, Onset:[place] 19 MOTHER, Onset:Childhood PAST SURGICAL HISTORY: -CERVICAL SPINE SURGERY -LEFT ELBOW ULNAR NERVE SURGERY -CHOLECYSTECTOMY -CARDIAC CATHS-- -03/02/[address] VORA: CONCLUSIONS: 1. Coronary artery disease primarily consisting of 95% ostial stenosis of a first diagonal of the left anterior descending to which successful balloon angioplasty was carried out with reduced the stenosis to less than 30%. Elsewhere, the patient exhibits mild to moderate diffuse coronary plaques. 2. Normal global left ventricular systolic function with an ejection fraction of approximately 60%. 3. Elevated left ventricular end-diastolic pressure. -HAD STENT X 1 PLACED 06/10/20 AT [place]. -LAST CARDIAC CATH DONE HERE 06/27/[address] VORA: CONCLUSIONS: 1. Mild coronary artery disease. 2. Patent stent in the mid left anterior descending artery. 3. Normal global left ventricular systolic function with ejection fraction of 55% to 60%. 4. Normal left ventricular end-diastolic pressure. Physical Exam Vital Signs Vital Signs - First Documented 07/18/21 09:20 Temp 35.8 Pulse 68 Resp 18 B/P (MAP) 152/71 (98) Pulse Ox 95 O2 Delivery Room Air Capillary Refill : Height, Weight, BMI Height: '" Weight: lbs. oz. kg; 45.00 BMI Method:Estimated General Appearance: No Apparent Distress, WD/WN HEENT: PERRL/EOMI, Pharynx Normal Neck: Normal Inspection Respiratory: Lungs Clear, Normal Breath Sounds, No Accessory Muscle Use, No Respiratory Distress Cardiovascular: Regular Rate, Rhythm, Normal Peripheral Pulses Gastrointestinal: Normal Bowel Sounds, Non Tender, Soft Extremity: Normal Capillary Refill, Normal Inspection, No Calf Tenderness, Swelling (hands and fingers) Neurologic/Psychiatric: Alert, Oriented x3, No Motor/Sensory Deficits, Normal Mood/Affect, outbound supervisor II-XII Norm as Tested Skin: Normal Color, Warm/Dry Procedures/Interventions Suture Size: 5-0 Progress/Results/Core Measures Results/Orders Lab Results Laboratory Tests Test 07/18/21 09:31 Range/Units White Blood Count 6.4 4.3-11.0 10^3/uL Red Blood Count 4.49 3.80-5.11 10^6/uL Hemoglobin 14.1 11.5-16.0 g/dL Hematocrit 41 35-52 % Mean Corpuscular Volume 90 80-99 fL Mean Corpuscular Hemoglobin 31 25-34 pg Mean Corpuscular Hemoglobin Concent 35 32-36 g/dL Red Cell Distribution Width 12.0 10.0-14.5 % Platelet Count 231 130-400 10^3/uL Mean Platelet Volume 9.0 9.0-12.2 fL Immature Granulocyte % (Auto) 0 % Neutrophils (%) (Auto) 64 42-75 % Lymphocytes (%) (Auto) 23 12-44 % Monocytes (%) (Auto) 11 0-12 % Eosinophils (%) (Auto) 2 0-10 % Basophils (%) (Auto) 0 0-10 % Neutrophils # (Auto) 4.1 1.8-7.8 10^3/uL Lymphocytes # (Auto) 1.5 1.0-4.0 10^3/uL Monocytes # (Auto) 0.7 0.0-1.0 10^3/uL Eosinophils # (Auto) 0.2 0.0-0.3 10^3/uL Basophils # (Auto) 0.0 0.0-0.1 10^3/uL Immature Granulocyte # (Auto) 0.0 0.0-0.1 10^3/uL Prothrombin Time 13.0 12.2-14.7 SEC INR Comment 0.9 0.8-1.4 Activated Partial Thromboplast Time 32 24-35 SEC Sodium Level 139 135-145 MMOL/L Potassium Level 4.2 3.6-5.0 MMOL/L Chloride Level 105 98-107 MMOL/L Carbon Dioxide Level 22 21-32 MMOL/L Anion Gap 12 5-14 MMOL/L Blood Urea Nitrogen 10 7-18 MG/DL Creatinine 0.74 0.60-1.30 MG/DL Estimat Glomerular Filtration Rate 94 BUN/Creatinine Ratio 14 Glucose Level 123 H 70-105 MG/DL Calcium Level 8.9 8.5-10.1 MG/DL Corrected Calcium 8.8 8.5-10.1 MG/DL Magnesium Level 2.0 1.6-2.4 MG/DL Total Bilirubin 0.6 0.1-1.0 MG/DL Aspartate Amino Transf (AST/SGOT) 16 5-34 U/L Alanine Aminotransferase (ALT/SGPT) 18 0-55 U/L Alkaline Phosphatase 69 40-136 U/L Myoglobin 29.2 10.0-92.0 NG/ML Troponin I < 0.028 <0.028 NG/ML Total Protein 6.4 6.4-8.2 GM/DL Albumin 4.1 3.2-4.5 GM/DL My Orders Orders - ARCHANA WHARTON MD Cbc With Automated Diff (07/18/21 09:50) Magnesium (07/18/21 09:50) Chest 1 View, Ap/Pa Only (07/18/21 09:50) Ekg Tracing (07/18/21 09:50) Comprehensive Metabolic Panel (07/18/21 09:50) Myoglobin Serum (07/18/21 09:50) Protime With Inr (07/18/21 09:50) Partial Thromboplastin Time (07/18/21 09:50) O2 (07/18/21 09:50) Monitor-Rhythm Ecg Trace Only (07/18/21 09:50) Lipid Panel (07/19/21 06:00) Ed Iv/Invasive Line Start (07/18/21 09:50) Troponin I [place] (07/18/21 09:50) Aspirin Chewable Tablet (Baby Aspirin Ch (07/18/21 10:00) Fentanyl Inj (Sublimaze Injection) (07/18/21 11:00) Ed Admission (Communication) (07/18/21 11:07) Medications Given in ED Current Medications Medications Dose Ordered Sig/Issa Route Start Time Stop Time Status Last Admin Dose Admin Aspirin 324 mg ONCE ONCE PO 07/18/21 10:00 07/18/21 10:01 DC 07/18/21 10:02 324 MG Fentanyl Citrate 50 mcg ONCE ONCE IVP 07/18/21 11:00 07/18/21 11:01 DC 07/18/21 11:09 50 MCG Vital Signs/I&O 07/18/21 07/18/21 07/18/21 09:20 09:35 10:30 Temp 35.8 Pulse 68 56 Resp 18 B/P (MAP) 152/71 (98) 107/60 Pulse Ox 95 95 95 O2 Delivery Room Air Room Air Progress Progress Note : Time: 11:05 Progress Note Discussed with patient, blood pressure down to 101 systolic. We will give her some fentanyl for her chest pain. Chest pain is down from a "8" to a "5". I spoke with Dr. Vora who is agreeable to observation admission for cardiac rule out. Also discussed with Dr. Samaniego. We will maintain patient's Plavix and aspirin. She is able to eat, do not anticipate cast. Initial ECG Impression Date: July 18, 2021 Initial ECG Impression Time: 10:07 Initial ECG Rate: 57 Initial ECG Rhythm: Normal Sinus Initial ECG Intervals: Normal Initial ECG Impression: Normal EKG : EKG Time: 11:26 Rate: 61 Intervals: Normal Intervals DC 199 QRS 92 QTc 440 Comment PVC noted, no significant ST segment elevation or depression is noted. Diagnostic Imaging Diagonstic Imaging: Xray Plain Films/CT/US/NM/MRI: chest Comments [facility]. [place], [place] NAME: LUCILA BRENNER [facility] REC#: [id number] PT STATUS: REG ER : 1965 PHYSICIAN: ARCHANA WHARTON MD ADMIT DATE: 07/18/21/ER Signed Date of Exam:07/18/21 CHEST 1 VIEW, AP/PA ONLY EXAMINATION: Chest radiograph, portable AP view. DATE: 07/18/2021 10:04 AM. INDICATION: 55-year-old female, chest pain. COMPARISON: June 08, 2021. FINDINGS: There is cervical spine hardware. Heart size and mediastinal contours are unchanged. There is no identified pneumothorax. There is no large pleural effusion. There is no identified focal airspace consolidation. IMPRESSION: No identified acute cardiopulmonary abnormality. Dictated by: Dictated on workstation # [id number] Dict: 07/18/21 1008 Trans: 07/18/21 1024 [id number] Interpreted by: SAMIR MEIER MD Electronically signed by: SAMIR MEIER MD 07/18/21 1024 Departure Communication (Admissions) Time/Spoke to Admitting Phy: 11:[address] Samaniego - lion put Que'd orders in Time/Spoke to Consulting Phy: 11:[address] Vora - ok to admit cardiac rule/out Impression Primary Impression: Chest pain Qualified Codes: R07.9 - Chest pain, unspecified Additional Impression: History of coronary artery disease Disposition: ADMITTED INPATIENT Condition: Stable Admissions Decision to Admit Reason: Admit from ER (General) Decision to Admit/Date: July 18, 2021 Time/Decision to Admit Time: 11:04 Departure-Patient Inst. Referrals: [facility] (PCP) Primary Care Physician ISABELLA UREÑA DO (Family) Primary Care Physician ARCHANA WHARTON MD July 18, 2021 09:54
[2021-07-18] MEDS ORDERED: ASPIRIN 81 MG CHEW (CHILDREN'S ASA) PO ONE (10:00)
[2021-07-18 10:01] LABS: ALBUMIN 4.1 GM/DL (3.2-4.5); POTASSIUM 4.2 MMOL/L (3.6-5.0)
[2021-07-18 10:02] LABS: BASOPHILS % (AUTO) 0 % (0-10); CALCIUM 8.9 MG/DL (8.5-10.1); EOSINOPHILS # (AUTO) 0.2 10^3/uL (0.0-0.3); EOSINOPHILS % (AUTO) 2 % (0-10); HEMATOCRIT 41 % (35-52); HEMOGLOBIN 14.1 g/dL (11.5-16.0); LYMPHOCYTES # (AUTO) 1.5 10^3/uL (1.0-4.0); LYMPHOCYTES % (AUTO) 23 % (12-44); MEAN CORPUSCULAR HEMOGLOBIN 31 pg (25-34); MEAN CORPUSCULAR HGB CONC 35 g/dL (32-36); MEAN CORPUSCULAR VOLUME 90 fL (80-99); MONOCYTES # (AUTO) 0.7 10^3/uL (0.0-1.0); MONOCYTES % (AUTO) 11 % (0-12); NEUTROPHILS # (AUTO) 4.1 10^3/uL (1.8-7.8); NEUTROPHILS % (AUTO) 64 % (42-75); PLATELET COUNT 231 10^3/uL (130-400); WHITE BLOOD COUNT 6.4 10^3/uL (4.3-11.0)
[2021-07-18 10:03] LABS: TOTAL PROTEIN 6.4 GM/DL (6.4-8.2)
[2021-07-18 10:05] LABS: BILIRUBIN,TOTAL 0.6 MG/DL (0.1-1.0)
[2021-07-18 10:07] LABS: CREATININE SERUM 0.74 MG/DL (0.60-1.30)
[2021-07-18 10:09] LABS: INR 0.9 (0.8-1.4)
--- NOTE | 2021-07-18 10:12 | Diagnostic Imaging Report ---
EXAMINATION: Chest radiograph, portable AP view. DATE: 07/18/2021 10:04 AM. INDICATION: 55-year-old female, chest pain. COMPARISON: June 08, 2021. FINDINGS: There is cervical spine hardware. Heart size and mediastinal contours are unchanged. There is no identified pneumothorax. There is no large pleural effusion. There is no identified focal airspace consolidation. IMPRESSION: No identified acute cardiopulmonary abnormality. Dictated by: Dictated on workstation # [id number]
[2021-07-18] MEDS ORDERED: fentaNYL INJ 100 MCG/2 ML AMP IVP ONE (11:00)
--- NOTE | 2021-07-18 11:10 | History & Physical-Hospitalist ---
History of Present Illness HPI/Chief Complaint CC: Chest pain HPI: This is a [facility] pt who has been in cardiac rehab for the last 56 sessions. Pt presented to the ER with complaints of chest pain. Initial troponins have been negative but considering her history of heart disease Dr. Vora wanted her admitted for observation. At this current time pt denies any chest pain but we will monitor her closely and follow troponins. Source: patient Exam Limitations: no limitations Date Seen 07/18/21 Time Seen by a Provider: 11:30 Attending Physician [facility] Referring Physician Date of Admission Home Medications & Allergies Home Medications Reviewed patient Home Medication Reconciliation performed by pharmacy medication reconciliations master motorcycle technician and/or nursing. Patients Allergies have been reviewed. Allergies Allergies Coded Allergies nitrofurantoin (Verified Allergy, Severe, 03/02/20) shellfish derived (Verified Allergy, Severe, 03/02/20) atorvastatin (Verified Allergy, Intermediate, 03/02/20) pt states it makes her hurt all over/extreme pain Penicillins (Unverified Allergy, Mild, 06/09/08) Proton Pump Inhibitors (Verified Allergy, Unknown, ANGINA, 02/20/21) codeine (Verified Allergy, Unknown, 03/02/20) Past Enwrsny-Pilxmb-Hyytpt Hx Patient Social History Marrital Status: single Employed/Student: unemployed Tobacco Use?: No Smoking Status: Former Smoker Use of E-Cig and/or Vaping dev: No Substance use?: No Alcohol Use?: No Pt feels they are or have been: No Immunizations Up To Date First/Initial COVID19 Vaccinat: RECEIVED, UNK WHEN Second COVID19 Vaccination Tu: RECEIVED, UNK WHEN Tetanus Booster (TDap): Unknown Hepatitis A: Yes Hepatitis B: Yes Seasonal Allergies Seasonal Allergies: Yes Current Status status: No Advance Directives: No Communicates: Verbally Primary Language: Stateless Preferred Spoken Language: Stateless Is interpretation needed?: No Implanted or Applied Medical D: None Past Medical History Surgeries: Cardiac, Coronary Stent, Gallbladder, Orthopedic Asthma Chronic Edema/Swelling, Coronary Artery Disease, Heart Attack, High Cholesterol, Hypertension 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 Gall Bladder Disease Rheumatoid Arthritis Anxiety, Depression Psoriasis Blood Disorders: No CAD Family Medical History Alcoholism G8 BROTHER, Onset:15's - 20 Arthritis 19 MOTHER, Onset:Adolescence G8 BROTHER, Onset:Adolescence G8 SISTER, Onset:25's - 30 Asthma G8 BROTHER Cataracts 19 FATHER, Onset:60 years & older Deafness or hearing loss 19 FATHER Dementia 19 FATHER Diabetes mellitus 19 MOTHER G8 BROTHER Hypertension 19 FATHER G8 BROTHER Myocardial infarction 19 FATHER, Onset:60 years & older G8 BROTHER, Onset:40's - 50 Psychosocial problem G8 BROTHER, Onset:25's - 30 Severe allergy 19 FATHER, Onset:[place] 19 MOTHER, Onset:Childhood PAST SURGICAL HISTORY: -CERVICAL SPINE SURGERY -LEFT ELBOW ULNAR NERVE SURGERY -CHOLECYSTECTOMY -CARDIAC CATHS-- -03/02/[address] VORA: CONCLUSIONS: 1. Coronary artery disease primarily consisting of 95% ostial stenosis of a first diagonal of the left anterior descending to which successful balloon angioplasty was carried out with reduced the stenosis to less than 30%. Elsewhere, the patient exhibits mild to moderate diffuse coronary plaques. 2. Normal global left ventricular systolic function with an ejection fraction of approximately 60%. 3. Elevated left ventricular end-diastolic pressure. -HAD STENT X 1 PLACED 06/10/20 AT [place]. -LAST CARDIAC CATH DONE HERE 06/27/[address] VORA: CONCLUSIONS: 1. Mild coronary artery disease. 2. Patent stent in the mid left anterior descending artery. 3. Normal global left ventricular systolic function with ejection fraction of 55% to 60%. 4. Normal left ventricular end-diastolic pressure. Review of Systems Constitutional: see HPI, malaise, weakness EENTM: no symptoms reported Respiratory: dyspnea on exertion Cardiovascular: chest pain Gastrointestinal: no symptoms reported Genitourinary: no symptoms reported Musculoskeletal: no symptoms reported Skin: no symptoms reported Psychiatric/Neurological: No Symptoms Reported All Other Systems Reviewed Negative Unless Noted: Yes Physical Exam Physical Exam Vital Signs Vital Signs - First Documented 07/18/21 09:20 Temp 35.8 Pulse 68 Resp 18 B/P (MAP) 152/71 (98) Pulse Ox 95 O2 Delivery Room Air Capillary Refill : Height, Weight, BMI Height: '" Weight: lbs. oz. kg; 45.00 BMI Method:Estimated General Appearance: No Apparent Distress, Anxious Eyes: Right Eye Normal Inspection, Right Eye PERRL HEENT: PERRL/EOMI, Normal ENT Inspection, Pharynx Normal, Moist Mucous Membranes Neck: Full Range of Motion, Normal Inspection, Non Tender Respiratory: Chest Non Tender, Lungs Clear, Normal Breath Sounds, No Accessory Muscle Use, No Respiratory Distress Cardiovascular: Regular Rate, Rhythm, No Edema, No Gallop, No JVD, No Murmur, Normal Peripheral Pulses Gastrointestinal: Normal Bowel Sounds, No Organomegaly, No Pulsatile Mass, Non Tender, Soft Back: Normal Inspection, No CVA Tenderness, No Vertebral Tenderness Extremity: Normal Capillary Refill, Normal Inspection, Normal Range of Motion, Non Tender, No Calf Tenderness, No Pedal Edema Neurologic/Psychiatric: Alert, Oriented x3, No Motor/Sensory Deficits, Normal Mood/Affect Skin: Normal Color, Warm/Dry Lymphatic: No Adenopathy Results Results/Procedures Labs Laboratory Tests 07/18/21 09:31 07/19/21 05:28 Patient resulted labs reviewed. Assessment/Plan Admission Diagnosis Assessment: Chest pain CAD Previous stents Anxiety Plan: Monitor troponin Appreciate cardiology Admission Status: Observation Clinical Quality Measures AMI/AHF: ASA po Prior to arrival: Yes LULU WAGNER DO July 18, 2021 11:10
[2021-07-18] MEDS ORDERED: PATIENT MAY USE OWN MEDS, ALL PO SCH ×2 (12:00)
[2021-07-18] MEDS ORDERED: ANTACID SUSP 30 ML UDC (MYLANTA) PO PRN (12:00)
[2021-07-18] MEDS ORDERED: diphenhydrAMINE 50 MG/ML INJ (BENADRYL) IVP PRN (12:00)
[2021-07-18] MEDS ORDERED: polyethylene glycoL POWDER 17 GM (MIRALAX) PACK PO PRN (12:00)
[2021-07-18] MEDS ORDERED: MELATONIN 3 MG TABLET PO PRN (12:00)
[2021-07-18] MEDS ORDERED: NITROGLYCERIN 0.4 MG SL TABS BTL 25'S SL PRN ×2 (12:00→18:30)
[2021-07-18] MEDS ORDERED: ONDANSETRON 4 MG (ZOFRAN) ORAL DISSOLVE TAB PO PRN (12:00)
[2021-07-18] MEDS ORDERED: MILK OF MAGNESIA 400 MG/5 ML 30 ML UDC PO PRN (12:00)
[2021-07-18] MEDS ORDERED: BISACODYL 10 MG SUPP (DULCOLAX) PR PRN (12:00)
[2021-07-18] MEDS ORDERED: ACETAMINOPHEN 325 MG TABLET PO PRN (12:00)
[2021-07-18] MEDS ORDERED: morphine INJ 4 MG/ML 1 ML (VIAL/SYRINGE) IV PRN (12:00)
[2021-07-18] MEDS ORDERED: CALCIUM CARBONATE 500 MG (TUMS) TAB.CHEW PO PRN (12:00)
[2021-07-18] MEDS ORDERED: diphenhydrAMINE 25 MG TAB (BENADRYL) PO PRN (12:00)
[2021-07-18] MEDS ORDERED: ONDANSETRON 4 MG/2 ML (SDV) Z0FRAN IV PRN (12:00)
[2021-07-18] MEDS ORDERED: LACTULOSE SYRUP 10GM/15ML (ENULOSE) 30ML UDC PO PRN (12:00)
--- NOTE | 2021-07-18 12:56 | Consultation-Cardiology ---
HPI-Cardiology Cardiology Consultation: Date of Consultation 07/18/21 Time Seen by a Provider: 12:05 Date of Admission Attending Physician Wandy Samaniego DO Admitting Physician [facility] Consulting Physician SERENITY NINO MD, MA, FACP, FACC, [facility], CCDS HPI: Chief Complaint: Chest discomfort 55 yo woman with a known h/o CAD. She awoke at her usual time today and then noted that she was having some chest discomfort (to the ER physician she had reported 8/10 cp but reported it to be mild to me). This was in the L and the R parasternal area, nonradiating, not associated with palp or syncope or shortness of breath. She went to cardiac rehab that she attends regularly and was found to have an elevated bp. She says she decided to come in to the hosp to be checked out. She currently does not report any cp. Chest discomfort this am lasted several hours before resolving. She does not report swelling or palp or syncope Review of Systems-Cardiology Review of Systems Constitutional: tiredness; No weight loss, No weight gain Eyes: No vision change Ears/Nose/Throat: No ear discharge, No nasal drainage, No recent hearing loss Respiratory: As described under HPI Cardiovascular: As described under HPI Gastrointestinal: No diarrhea, No nausea, No vomiting Genitourinary: No dysuria, No hematuria Musculoskeletal: back pain (chronic, intemittent) Skin: No rash, No ulcerations Psychiatric/Neurological: No seizure, No focal weakness, No syncope Hematologic: No bleeding abnormalities All Other Systems Reviewed Negative Unless Noted: Yes [id number]-Bfdmte-Nqtoem Hx Patient Social History 2nd Hand Smoke Exposure: No Alcohol Use?: No Pt feels they are or have been: No Immunizations Up To Date Tetanus Booster (TDap): More than 5yrs Past Medical History PMH As described under Assessment. Family Medical History Family Medical History: Family h/o father having CAD sisi his 50's. Reports brothers x 2 having CAD and AR's in thier 40's. Family History: Alcoholism G8 BROTHER, Onset:15's - 20 Arthritis 19 MOTHER, Onset:Adolescence G8 BROTHER, Onset:Adolescence G8 SISTER, Onset:25's - 30 Asthma G8 BROTHER Cataracts 19 FATHER, Onset:60 years & older Deafness or hearing loss 19 FATHER Dementia 19 FATHER Diabetes mellitus 19 MOTHER G8 BROTHER Hypertension 19 FATHER G8 BROTHER Myocardial infarction 19 FATHER, Onset:60 years & older G8 BROTHER, Onset:40's - 50 Psychosocial problem G8 BROTHER, Onset:25's - 30 Severe allergy 19 FATHER, Onset: 19 MOTHER, Onset:Childhood Allergies and Home Medications Allergies Coded Allergies: nitrofurantoin (Verified Allergy, Severe, 03/02/20) shellfish derived (Verified Allergy, Severe, 03/02/20) atorvastatin (Verified Allergy, Intermediate, 03/02/20) pt states it makes her hurt all over/extreme pain Penicillins (Unverified Allergy, Mild, 06/09/08) Proton Pump Inhibitors (Verified Allergy, Unknown, ANGINA, 02/20/21) codeine (Verified Allergy, Unknown, 03/02/20) Patient Home Medication List Home Medication List Reviewed: Yes Aspirin (Aspirin EC) 81 Mg Tablet.dr, 81 MG PO DAILY, (Reported) Entered as Reported by: ISABELLA CARDOZO on 02/20/21 1335 Chlorpheniramine Maleate (Chlortabs) 4 Mg Tablet, 4 MG PO Q4H PRN for ALLERGY SYMPTOMS, (Reported) Entered as Reported by: ISABELLA CARDOZO on 06/08/20 1109 Citalopram Hydrobromide (Citalopram HBr) 10 Mg Tablet, 10 MG PO HS, (Reported) Entered as Reported by: ISABELLA CARDOZO on 02/20/21 1335 Clopidogrel Bisulfate (Clopidogrel) 75 Mg Tablet, 75 MG PO DAILY, (Reported) Entered as Reported by: ISABELLA CARDOZO on 02/20/21 1335 Diclofenac Sodium (Voltaren Arthritis Pain) 20 Gm Gel..gram., 1 APPLIC TP TID PRN for PAIN-BREAKTHROUGH, (Reported) Entered as Reported by: ISABELLA CARDOZO on 03/02/20 1138 Diphenhydramine HCl (Diphenhydramine HCl) 25 Mg Capsule, 25 MG PO QID PRN for ALLERGY SYMPTOMS, (Reported) Entered as Reported by: ISABELLA CARDOZO on 03/02/20 1138 Furosemide (Lasix) 20 Mg Tablet, 20 MG PO DAILY PRN for fluid retention Prescribed by: JORDI AGUILAR on 06/08/21 1657 Isosorbide Mononitrate (Isosorbide Mononitrate ER) 30 Mg Tab.er.24h, 30 MG PO DAILY, (Reported) Entered as Reported by: ISABELLA CARDOZO on 02/20/21 1335 Levothyroxine Sodium (Levothyroxine Sodium) 50 Mcg Tablet, 50 MCG PO DAILY, (Reported) Entered as Reported by: ISABELLA CARDZOO on 02/20/21 1335 Magnesium Oxide (Magnesium) 250 Mg Tablet, 250 MG PO BID, (Reported) Entered as Reported by: ISABELLA CARDOZO on 03/02/20 1138 Metoprolol Succinate (Metoprolol Succinate) 50 Mg Tab.er.24h, 50 MG PO DAILY, (Reported) Entered as Reported by: ISABELLA CARDOZO on 04/20/20 1600 Mv-Mn/Folic Acid/Calcium/Vit K (Women's 50 Plus Multivit Tab) 1 Each Tablet, 1 EACH PO DAILY, (Reported) Entered as Reported by: ISABELLA CARDOZO on 02/20/21 1335 Nitroglycerin (Nitroglycerin) 0.4 Mg Tab.subl, 0.4 MG SL UD PRN for CHEST PAIN, (Reported) Entered as Reported by: ISABELLA CARDOZO on 06/27/20 0954 Oxymetazoline HCl (Oxymetazoline HCl) 30 Ml [place], 1-2 SPRAYS NS UD PRN for CONGESTION, (Reported) Entered as Reported by: ISABELLA CARDOZO on 06/08/20 1109 Ranolazine (Ranolazine ER) 500 Mg Tab.er.12h, 500 MG PO BID, (Reported) Entered as Reported by: ISABELLA CARDOZO on 02/20/21 1335 Rosuvastatin Calcium (Rosuvastatin Calcium) 40 Mg Tablet, 40 MG PO HS, (Reported) Entered as Reported by: ISABELLA CARDOZO on 06/08/20 1109 Physical Exam-Cardiology Physical Exam Vital Signs/I&O 07/18/21 07/18/21 07/18/21 07/18/21 09:20 09:35 10:30 11:52 Temp 35.8 Pulse 68 56 55 Resp 18 18 B/P (MAP) 152/71 (98) 107/60 105/68 Pulse Ox 95 95 95 96 O2 Delivery Room Air Room Air Room Air 07/18/21 07/18/21 12:15 12:30 Pulse 55 Resp 16 B/P (MAP) 144/95 141/83 Pulse Ox 95 Capillary Refill : Constitutional: AAO x 3, well-developed HEENT: EOMI, hearing is well preserved Neck: carotid pulses are 2 + bilaterally, with good upstrokes Respiratory: No accessory muscle use; other (good, bilat air entry) Cardiovascular: regular rate-rhythm, S1 and S2, systolic murmur (soft TRI at card base) Gastrointestinal: No tender, No guarding, No rebound; audible bowel sounds Extremities: No clubbing, No cyanosis, No significant edema Neurologic/Psychiatric: oriented x 3, other (moves all limbs equally) Skin: No rash on exposed areas, No ulcerations on exposed areas Data Review Labs Laboratory Tests 07/18/21 09:31: White Blood Count 6.4, Red Blood Count 4.49, Hemoglobin 14.1, Hematocrit 41, Mean Corpuscular Volume 90, Mean Corpuscular Hemoglobin 31, Mean Corpuscular Hemoglobin Concent 35, Red Cell Distribution Width 12.0, Platelet Count 231, Mean Platelet Volume 9.0, Immature Granulocyte % (Auto) 0, Neutrophils (%) (Aut o) 64, Lymphocytes (%) (Auto) 23, Monocytes (%) (Auto) 11, Eosinophils (%) (Auto) 2, Basophils (%) (Auto) 0, Neutrophils # (Auto) 4.1, Lymphocytes # (Auto) 1.5, Monocytes # (Auto) 0.7, Eosinophils # (Auto) 0.2, Basophils # (Auto) 0.0, Immature Granulocyte # (Auto) 0.0, Prothrombin Time 13.0, INR Comment 0.9, Activated Partial Thromboplast Time 32, Sodium Level 139, Potassium Level 4.2, Chloride Level 105, Carbon Dioxide Level 22, Anion Gap 12, Blood Urea Nitrogen 10, Creatinine 0.74, Estimat Glomerular Filtration Rate 94, BUN/Creatinine Ratio 14, Glucose Level 123H, Calcium Level 8.9, Corrected Calcium 8.8, Magnesium Level 2.0, Total Bilirubin 0.6, Aspartate Amino Transf (AST/SGOT) 16, Alanine Aminotransferase (ALT/SGPT) 18, Alkaline Phosphatase 69, Myoglobin 29.2, Tro ponin I < 0.028, Total Protein 6.4, Albumin 4.1 Laboratory Tests 07/18/21 09:31 A/P-Cardiology Assessment/Admission Diagnosis Chest discomfort w/o any evidence of ACS so far CAD - Card cath and PCI on 03/02/20: Coronary artery disease primarily consisting of 95% ostial stenosis of the left anterior descending to just past origin of large D1 to which successful balloon angioplasty was carried out with reduced the stenosis to less than 30%. Mild plaque in other cors. RCA dominant - Echocardiogram of 03-02-20 showed LVEF 60-65%. PASP 20-25 mmHg - Card cath and PCI on 04/21/20: PTCA for 95% restenosis at site of PTCA in mid LAD, just past D1, reducing the lesion to less than 10% and with normal antegrade flow, LVEDP 12 mmHg, LVEF 50-55% - Cardiac cath on 06-08-[address] Oden: Severe LAD stenosis, transferred to [facility] - Reports cardiac cath with PCI on 06-10-[address] 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 Gomez at [facility] in [place], [place]: showed LAD patent stent in the prox LAD, in the mid LAD there is an 80% stenosis in small vessel no amenable to intervention. Approx 50% stenosis in the prox first diag. LVEF 675%. Medical tx was advised. 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 Isabella Whitaker at [facility] Palpitations - undetermined etiology Carotid dz - minimal plaque per u/s of May 2020 HTN - controlled Scleroderma, - by history - managed by PCP Celiac dz - managed by PCP HLD - statin tx - followed by PCP Discussion and Recomendations * Treat with dual antiplatelet therapy and beta-kena and statin (pt has chronically been on rosuvastatin 40 mg daily w/o complications) * Keep on tele and evaluate serial cardiac enzymes * If evidence of ACS is seen, then consider repeat card cath. Otherwise, manage conservatively * Monitor lab * I discussed her CV issues with her and answered questions Clinical Quality Measures AMI/AHF: ASA po Prior to arrival: Yes SERENITY NINO MD FACP FAC CCDS July 18, 2021 12:56
[2021-07-18] MEDS: ENOXAPARIN 40 MG/0.4 ML (LOVENOX) SYR SC SCH (13:04)
[2021-07-18 13:13] VITALS: BP 141/83
[2021-07-18] MEDS ORDERED: EZET10TA17 PO (13:16)
[2021-07-18] MEDS ORDERED: RT-ALBUTEROL SULF 2.5 MG/3 ML PRE-MIX VIAL INH PRN ×2 (13:30→18:30)
[2021-07-18] MEDS ORDERED: ALBU18HF2 INH (15:48)
[2021-07-18] MEDS ORDERED: TRZ50T PO (15:48)
[2021-07-18] MEDS ORDERED: LORA10TA7 PO (15:48)
[2021-07-18] MEDS ORDERED: DESO15CR26 TP (15:48)
[2021-07-18] MEDS ORDERED: MAGN250T31 PO (15:48)
[2021-07-18] MEDS ORDERED: CITA20TA9 PO (15:48)
[2021-07-18] MEDS ORDERED: HYDR453. TP (15:48)
[2021-07-18] MEDS ORDERED: DIPH25CA48 PO (15:48)
[2021-07-18 15:52] VITALS: BP 99/61
[2021-07-18 18:00] VITALS: BP 123/89
[2021-07-18] MEDS ORDERED: OXYMETAZOLINE (AFRIN) 0.05% NA 30 ML BTL NS PRN (18:30)
[2021-07-18] MEDS ORDERED: HYDROCORTISONE 1% CREAM 30 GM TUBE TP PRN (18:30)
[2021-07-18] MEDS ORDERED: DICLOFENAC 1% GEL 100 GM (VOLTAREN) TUBE TP PRN (18:30)
[2021-07-18 19:32] VITALS: BP 122/82
[2021-07-18] MEDS: SENNOSIDES 8.6 MG (SENOKOT) TAB PO SCH (21:00)
[2021-07-18] MEDS ORDERED: diphenhydrAMINE 25 MG TAB (BENADRYL) PO SCH (21:00)
[2021-07-18] MEDS: RANOLAZINE ER 500 MG TAB (RANEXA) PO SCH (21:00)
[2021-07-18] MEDS ORDERED: eZETimibe 10 MG (ZETIA) TABLET PO SCH (21:00)
[2021-07-18] MEDS ORDERED: ROSUVASTATIN 20 MG (CRESTOR) TABLET PO SCH ×2 (21:00)
[2021-07-18] MEDS: DOCUSATE SODIUM 100 MG (COLACE) CAP PO SCH (21:00)
[2021-07-18] MEDS ORDERED: MAGNESIUM OXIDE (MAG-OX)400 MG TAB PO SCH (21:00)
[2021-07-18] MEDS ORDERED: traZODone 50 MG (DESYREL) TAB PO SCH (21:00)
[2021-07-18] MEDS ORDERED: LORATADINE (CLARITIN) 10 MG TAB PO SCH (21:00)
[2021-07-18 22:59] VITALS: BP 102/61
[2021-07-19] MEDS: ENOXAPARIN 40 MG/0.4 ML (LOVENOX) SYR SC SCH
[2021-07-19 02:35] VITALS: BP 117/70
[2021-07-19 05:39] LABS: BASOPHILS % (AUTO) 0 % (0-10); EOSINOPHILS # (AUTO) 0.1 10^3/uL (0.0-0.3); EOSINOPHILS % (AUTO) 3 % (0-10); HEMATOCRIT 37 % (35-52); HEMOGLOBIN 12.9 g/dL (11.5-16.0); LYMPHOCYTES # (AUTO) 1.5 10^3/uL (1.0-4.0); LYMPHOCYTES % (AUTO) 28 % (12-44); MEAN CORPUSCULAR HEMOGLOBIN 32 pg (25-34); MEAN CORPUSCULAR HGB CONC 35 g/dL (32-36); MEAN CORPUSCULAR VOLUME 91 fL (80-99); MONOCYTES # (AUTO) 0.6 10^3/uL (0.0-1.0); MONOCYTES % (AUTO) 11 % (0-12); NEUTROPHILS # (AUTO) 3.1 10^3/uL (1.8-7.8); NEUTROPHILS % (AUTO) 58 % (42-75); PLATELET COUNT 197 10^3/uL (130-400); WHITE BLOOD COUNT 5.4 10^3/uL (4.3-11.0)
[2021-07-19 06:05] LABS: CHLORIDE 106 MMOL/L (98-107); POTASSIUM 4.2 MMOL/L (3.6-5.0); SODIUM 138 MMOL/L (135-145)
[2021-07-19 06:06] LABS: ALBUMIN 3.4 GM/DL (3.2-4.5)
[2021-07-19 06:07] LABS: CALCIUM 8.5 MG/DL (8.5-10.1)
[2021-07-19 06:08] LABS: GLUCOSE 114 MG/DL (70-105); TOTAL PROTEIN 5.5 GM/DL (6.4-8.2); TRIGLYCERIDES 131 MG/DL (<150); VLDL CHOLESTEROL 26 MG/DL (5-40)
[2021-07-19 06:09] LABS: CARBON DIOXIDE 21 MMOL/L (21-32)
[2021-07-19 06:10] LABS: BILIRUBIN,TOTAL 0.5 MG/DL (0.1-1.0)
[2021-07-19 06:12] LABS: ALKALINE PHOSPHATASE 61 U/L (40-136); CREATININE SERUM 0.72 MG/DL (0.60-1.30); GFR ESTIMATED 97
[2021-07-19 06:13] LABS: BUN/CREATININE RATIO 15; CHOLESTEROL 111 MG/DL (< 200)
[2021-07-19 06:14] LABS: HDL CHOLESTEROL 36 MG/DL (40-60)
[2021-07-19 06:15] LABS: ALANINE AMINOTRANSFERASE 17 U/L (0-55)
[2021-07-19 07:35] VITALS: BP 135/63
[2021-07-19] MEDS ORDERED: MAGNESIUM OXIDE (MAG-OX)400 MG TAB PO SCH (08:00)
[2021-07-19 08:02] VITALS: BP 135/65
--- NOTE | 2021-07-19 08:15 | Progress Note - Cardiology ---
Cardiology SOAP Progress Note Objective: I&O/Vital Signs Constitutional: AAO x 3, well-developed Respiratory: No accessory muscle use; other (good, bilat air entry) Cardiovascular: regular rate-rhythm, S1 and S2, systolic murmur (soft TRI at card base) Gastrointestional: No tender, No guarding, No rebound; audible bowel sounds Extremities: No clubbing, No cyanosis, No significant edema Neurologic/Psychiatric: oriented x 3, other (moves all limbs equally) Skin: No rash on exposed areas, No ulcerations on exposed areas Results/Procedures: Labs A/P: Assessment: Chest discomfort w/o any evidence of ACS - continue with conservative management CAD - Card cath and PCI on 03/02/20: Coronary artery disease primarily consisting of 95% ostial stenosis of the left anterior descending to just past origin of large D1 to which successful balloon angioplasty was carried out with reduced the stenosis to less than 30%. Mild plaque in other cors. RCA dominant - Echocardiogram of 03-02-20 showed LVEF 60-65%. PASP 20-25 mmHg - Card cath and PCI on 04/21/20: PTCA for 95% restenosis at site of PTCA in mid LAD, just past D1, reducing the lesion to less than 10% and with normal antegrade flow, LVEDP 12 mmHg, LVEF 50-55% - Cardiac cath on 06-08-[address] Oden: Severe LAD stenosis, transferred to [facility] - Reports cardiac cath with PCI on 06-10-[address] 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 Gomez at [facility] in [place], [place]: showed LAD patent stent in the prox LAD, in the mid LAD there is an 80% stenosis in small vessel no amenable to intervention. Approx 50% stenosis in the prox first diag. LVEF 675%. Medical tx was advised. 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 Charles Whitaker at [facility] Palpitations - undetermined etiology Carotid dz - minimal plaque per u/s of May 2020 HTN - controlled Scleroderma, - by history - managed by PCP Celiac dz - managed by PCP HLD - statin tx - followed by PCP Plan: * Treat with dual antiplatelet therapy and beta-kena and statin (pt has chronically been on rosuvastatin 40 mg daily w/o complications) * No evidence of ACS - appears appropriate to continue to manage conservatively * Monitor lab * I discussed her CV issues with her and answered questions Clinical Quality Measures AMI/AHF: ASA po Prior to arrival: Yes GERARD NOLSACO [facility] July 19, 2021 08:15
[2021-07-19] MEDS ORDERED: MULTIVIT W/MINERALS TAB (THERAGRAN M) PO SCH (09:00)
[2021-07-19] MEDS ORDERED: CLOPIDOGREL 75 MG (PLAVIX) TABLET PO SCH ×2 (09:00)
[2021-07-19] MEDS ORDERED: ASPIRIN E.C. 81 MG (ECOTRIN) TAB PO SCH ×2 (09:00)
[2021-07-19] MEDS: RANOLAZINE ER 500 MG TAB (RANEXA) PO SCH (09:00)
[2021-07-19] MEDS ORDERED: meTOproloL SUCCINATE 50 MG (TOPROL XL) TAB PO SCH (09:00)
[2021-07-19] MEDS ORDERED: LEVOTHYROXINE 50 MCG (LEVOTHROID) TAB PO SCH (09:00)
[2021-07-19] MEDS ORDERED: diphenhydrAMINE 25 MG TAB (BENADRYL) PO SCH (09:00)
[2021-07-19] MEDS: DOCUSATE SODIUM 100 MG (COLACE) CAP PO SCH (09:01)
[2021-07-19] MEDS: SENNOSIDES 8.6 MG (SENOKOT) TAB PO SCH (09:01)
--- NOTE | 2021-07-19 09:05 | Progress Note - Cardiology ---
Cardiology SOAP Progress Note Subjective: No cp or palp or syncope or shortness of breath No n/v/d No focal weakness Wishes to go home Objective: I&O/Vital Signs 07/18/21 07/19/21 07/19/21 07/19/21 22:59 01:00 02:35 07:00 Temp 36.7 Pulse 60 54 60 52 Resp 16 9 B/P (MAP) 102/61 (75) 117/70 (86) Pulse Ox 95 O2 Delivery Room Air Room Air 07/19/21 07/19/21 07/19/21 07/19/21 07:30 07:35 08:00 08:02 Temp 36.8 Pulse 58 54 60 Resp 9 18 B/P (MAP) 135/63 (87) 135/65 (88) O2 Delivery Room Air Room Air Room Air 07/19/21 00:00 Intake Total 1175 ml Balance 1175 ml Constitutional: AAO x 3, well-developed Respiratory: No accessory muscle use; other (good, bilat air entry) Cardiovascular: regular rate-rhythm, S1 and S2, systolic murmur (soft TRI at card base) Gastrointestional: No tender, No guarding, No rebound; audible bowel sounds Extremities: No clubbing, No cyanosis, No significant edema Neurologic/Psychiatric: oriented x 3, other (moves all limbs equally) Skin: No rash on exposed areas, No ulcerations on exposed areas Results/Procedures: Labs Laboratory Tests 07/18/21 09:31: White Blood Count 6.4, Red Blood Count 4.49, Hemoglobin 14.1, Hematocrit 41, Mean Corpuscular Volume 90, Mean Corpuscular Hemoglobin 31, Mean Corpuscular Hemoglobin Concent 35, Red Cell Distribution Width 12.0, Platelet Count 231, Mean Platelet Volume 9.0, Immature Granulocyte % (Auto) 0, Neutrophils (%) (Auto) 64, Lymphocytes (%) (Auto) 23, Monocytes (%) (Auto) 11, Eosinophils (%) (Auto) 2, Basophils (%) (Auto) 0, Neutrophils # (Auto) 4.1, Lymphocytes # (Auto) 1.5, Monocytes # (Auto) 0.7, Eosinophils # (Auto) 0.2, Basophils # (Auto) 0.0, Immature Granulocyte # (Auto) 0.0, Prothrombin Time 13.0, INR Comment 0.9, Activated Partial Thromboplast Time 32, Sodium Level 139, Potassium Level 4.2, Chloride Level 105, Carbon Dioxide Level 22, Anion Gap 12, Blood Urea Nitrogen 1 0, Creatinine 0.74, Estimat Glomerular Filtration Rate 94, BUN/Creatinine Ratio 14, Glucose Level 123H, Calcium Level 8.9, Corrected Calcium 8.8, Magnesium Level 2.0, Total Bilirubin 0.6, Aspartate Amino Transf (AST/SGOT) 16, Alanine A minotransferase (ALT/SGPT) 18, Alkaline Phosphatase 69, Myoglobin 29.2, Troponin I < 0.028, Total Protein 6.4, Albumin 4.1 07/18/21 16:45: Troponin I < 0.028 07/19/21 05:28: White Blood Count 5.4, Red Blood Count 4.09, Hemoglobin 12.9, Hematocrit 37, Mean Corpuscular Volume 91, Mean Corpuscular Hemoglobin 32, Mean Corpuscular Hemoglobin Concent 35, Red Cell Distribution Width 12.0, Platelet Count 197, Mean Platelet Volume 9.0, Immature Granulocyte % (Auto) 0, Neutrophils (%) (Auto) 58, Lymphocytes (%) (Auto) 28, Monocytes (%) (Auto) 11, Eosinophils (%) (Auto) 3, Basophils (%) (Auto) 0, Neutrophils # (Auto) 3.1, Lymphocytes # (Auto) 1.5, Monocytes # (Auto) 0.6, Eosinophils # (Auto) 0.1, Basophils # (Auto) 0.0, Immature Granulocyte # (Auto) 0.0, Sodium Level 138, Potassium Level 4.2, Chloride Level 106, Carbon Dioxide Level 21, Anion Gap 11, Blood Urea Nitrogen 11, Creatinine 0.72, Estimat Glomerular Filtration Rate 97, BUN/Creatinine Ratio 15, Glucose Level 114H, Calcium Level 8.5, Corrected Calcium 9.0, Total Bilirubin 0.5, Aspartate Amino Transf (AST/SGOT) 18, Alanine Aminotransferase (ALT/SGPT) 17, Alkaline Phosphatase 61, Troponin I < 0.028, Total Protein 5.5L, Albumin 3.4, Triglycerides Level 131, Cholesterol Level 111, LDL Cholesterol Direct 58, VLDL Cholesterol 26, HDL Cholesterol 36L A/P: Assessment: Chest discomfort w/o any evidence of ACS - continue with conservative management CAD - Card cath and PCI on 03/02/20: Coronary artery disease primarily consisting of 95% ostial stenosis of the left anterior descending to just past origin of large D1 to which successful balloon angioplasty was carried out with reduced the stenosis to less than 30%. Mild plaque in other cors. RCA dominant - Echocardiogram of 03-02-20 showed LVEF 60-65%. PASP 20-25 mmHg - Card cath and PCI on 04/21/20: PTCA for 95% restenosis at site of PTCA in mid LAD, just past D1, reducing the lesion to less than 10% and with normal antegrade flow, LVEDP 12 mmHg, LVEF 50-55% - Cardiac cath on 06-08-[address] Oden: Severe LAD stenosis, transferred to [facility] - Reports cardiac cath with PCI on 06-10-[address] 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 Gomez at [facility] in [place], [place]: showed LAD patent stent in the prox LAD, in the mid LAD there is an 80% stenosis in small vessel no amenable to intervention. Approx 50% stenosis in the prox first diag. LVEF 675%. Medical tx was advised. 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 Charles Whitaker at [facility] Palpitations - undetermined etiology Carotid dz - minimal plaque per u/s of May 2020 HTN - controlled Scleroderma, - by history - managed by PCP Celiac dz - managed by PCP HLD - statin tx - followed by PCP Plan: * Treat with dual antiplatelet therapy and beta-kena and statin (pt has chronically been on rosuvastatin 40 mg daily w/o complications) * No evidence of coronary syndrome. Continue current regimen. Outpt f/u. Reviewed risk factor mod. Outpt f/u advised Clinical Quality Measures AMI/AHF: ASA po Prior to arrival: Yes SERENITY NINO MD FACP FACC CCDS July 19, 2021 09:05
[2021-07-19] MEDS ORDERED: ROSU40TA23 PO (09:32)
--- NOTE | 2021-07-19 09:35 | Discharge Summary ---
Discharge Summary Hospital Course Was the Problem List Reviewed?: Yes Problems/Dx: (1) Chest pain Status: Acute Qualifiers: Qualified Codes: R07.9 - Chest pain, unspecified (2) History of coronary artery disease Status: Acute Hospital Course Date of Admission: July 18, 2021 at 11:08 Admission Diagnosis : Family Physician/Provider: Charles Whitaker DO Date of Discharge: 07/19/21 Discharge Diagnosis: Chest pain, CAD, hypertension, hyperlipidemia, anxiety Hospital Course: Pt had an uneventful hospital course. She was admitted for chest pain with a long history of CAD. Cardiology evaluated her and all troponins were negative. There was no evidence of acute coronary syndrome. She was discharged in improved condition. Labs and Pending Lab Test: Laboratory Tests 07/18/21 16:45: Troponin I < 0.028 07/19/21 05:28: Troponin I < 0.028, White Blood Count 5.4, Red Blood Count 4.09, Hemoglobin 12.9, Hematocrit 37, Mean Corpuscular Volume 91, Mean Corpuscular Hemoglobin 32, Mean Corpuscular Hemoglobin Concent 35, Red Cell Distribution Width 12.0, Platelet Count 197, Mean Platelet Volume 9.0, Immature Granulocyte % (Auto) 0, Neutrophils (%) (Auto) 58, Lymphocytes (%) (Auto) 28, Monocytes (%) (Auto) 11, Eosinophils (%) (Auto) 3, Basophils (%) (Auto) 0, Neutrophils # (Auto) 3.1, Lymphocytes # (Auto) 1.5, Monocytes # (Auto) 0.6, Eosinophils # (Auto) 0.1, Basophils # (Auto) 0.0, Immature Granulocyte # (Auto) 0.0, Sodium Level 138, Potassium Level 4.2, Chloride Level 106, Carbon Dioxide Level 21, Anion Gap 11, Blood Urea Nitrogen 11, Creatinine 0.72, Estimat Glomerular Filtration Rate 97, BUN/Creatinine Ratio 15, Glucose Level 114H, Calcium Level 8.5, Corrected Calcium 9.0, Total Bilirubin 0.5, Aspartate Amino Transf (AST/SGOT) 18, Alanine Aminotransferase (ALT/SGPT) 17, Alkaline Phosphatase 61, Total Protein 5.5L, Albumin 3.4, Triglycerides Level 131, Cholesterol Level 111, LDL Cholesterol Direct 58, VLDL Cholesterol 26, HDL Cholesterol 36L Home Meds Active Reported Citalopram HBr (Citalopram Hydrobromide) 20 Mg Tablet 20 Mg PO HS Loratadine 10 Mg Tablet 10 Mg PO HS Desonide 0.05 % Cream..g. 1 Applic TP BID PRN Hydrocortisone 1 % Cream..g. 1 Applic TP UD PRN Diphenhydramine HCl 25 Mg Capsule 75 Mg PO HS TAKES 3 (25MG) CAPS Magnesium 250 Mg Tablet 500 Mg PO HS TAKES 2 (250MG) TABS Trazodone HCl 50 Mg Tablet 25-50 Mg PO HS TAKES TO 1 (50MG) TAB Ventolin Hfa (Albuterol Sulfate) 90 Mcg Hfa.aer.ad 2 Puff INH Q4H PRN Zetia (Ezetimibe) 10 Mg Tablet 10 Mg PO HS Women's 50 Plus Multivit Tab (Mv-Mn/Folic Acid/Calcium/Vit K) 1 Each Tablet 1 Each PO DAILY Clopidogrel (Clopidogrel Bisulfate) 75 Mg Tablet 75 Mg PO DAILY Ranolazine ER (Ranolazine) 500 Mg Tab.er.12h 500 Mg PO BID Isosorbide Mononitrate ER (Isosorbide Mononitrate) 30 Mg Tab.er.24h 60 Mg PO 1500 TAKES 2 (30MG) TABS Aspirin EC (Aspirin) 81 Mg Tablet.dr 81 Mg PO DAILY Levothyroxine Sodium 50 Mcg Tablet 50 Mcg PO DAILY Nitroglycerin 0.4 Mg Tab.subl 0.4 Mg SL UD PRN Oxymetazoline HCl 30 Ml [place] 1-2 Sprays NS UD PRN Rosuvastatin Calcium 40 Mg Tablet 40 Mg PO HS Metoprolol Succinate 50 Mg Tab.er.24h 50 Mg PO DAILY Voltaren Arthritis Pain (Diclofenac Sodium) 20 Gm Gel..gram. 1 Applic TP TID PRN Diphenhydramine HCl 25 Mg Capsule 25 Mg PO DAILY Magnesium (Magnesium Oxide) 250 Mg Tablet 250 Mg PO DAILY Assessment/Pt Instructions PCP in 1 week Discharge Planning: <30 minutes discharge planning Discharge Instructions Discharge Diet: No Restrictions Discharge Physical Examination Vital Signs Vital Signs Date Time Temp Pulse Resp B/P (MAP) Pulse Ox O2 Delivery O2 Flow Rate FiO2 07/19/21 08:02 36.8 60 18 135/65 (88) 07/19/21 08:00 Room Air 07/18/21 22:59 95 General Appearance: No Apparent Distress, WD/WN, Anxious, Chronically ill Respiratory: Lungs Clear, Normal Breath Sounds Cardiovascular: Regular Rate, Rhythm Neurologic/Psychiatric: Alert, Oriented x3 Allergies: Coded Allergies: nitrofurantoin (Verified Allergy, Severe, 03/02/20) shellfish derived (Verified Allergy, Severe, 03/02/20) atorvastatin (Verified Allergy, Intermediate, 03/02/20) pt states it makes her hurt all over/extreme pain Penicillins (Unverified Allergy, Mild, 06/09/08) Proton Pump Inhibitors (Verified Allergy, Unknown, ANGINA, 02/20/21) codeine (Verified Allergy, Unknown, 03/02/20) Discharge Summary Date of Admission July 18, 2021 at 11:08 Date of Discharge Discharge Date: July 19, 2021 Admission Diagnosis Assessment: Chest pain CAD Previous stents Anxiety Plan: Monitor troponin Appreciate cardiology Clinical Quality Measures AMI/AHF: ASA po Prior to arrival: Yes LULU WAGNER DO July 19, 2021 09:35
[2021-07-19] MEDS ORDERED: ISOSORBIDE MONONITRATE 30 MG (IMDUR) TAB PO SCH (15:00)
== END 2021-07-19 11:10 | disposition home or self-care (01) ==
LOC: EDUNIT# 09:18 → ER 09:19 → CSD 11:08
PROVIDERS: ADMIT Internal Medicine; ATTEND Internal Medicine
DX: R07.89 Other chest pain (principal); I25.10 Atherosclerotic heart disease of native coronary artery without angina pectoris; I10 Essential (primary) hypertension; I77.9 Disorder of arteries and arterioles, unspecified; I65.29 Occlusion and stenosis of unspecified carotid artery; E78.5 Hyperlipidemia, unspecified; M34.9 Systemic sclerosis, unspecified; F41.9 Anxiety disorder, unspecified; R00.2 Palpitations; Z95.5 Presence of coronary angioplasty implant and graft; Z87.891 Personal history of nicotine dependence; Z79.899 Other long term (current) drug therapy
CPT/HCPCS: 71045; 80053 ×2; 80061; 83735; 83874; 84484 ×2; 85025 ×2; 85610; 85730; 93005; 93041; 96372; 99284; G0378; 36415

== ENCOUNTER 2021-07-23 09:22 | Outpatient (RCR) | payer MEDICARE, MEDICAID ==
[~2021-07-23 09:22] MED LIST changes: +ALBU18HF2 INH; +CITA20TA9 PO; +DESO15CR26 TP; +EZET10TA17 PO; +HYDR453. TP; +MAGN250T31 PO; +TRZ50T PO
== END 2021-07-31 | disposition home or self-care (01) ==
LOC: CR 09:22
PROVIDERS: ATTEND Internal Medicine Cardiovascular Disease
DX: Z29.8 Encounter for other specified prophylactic measures (principal); I25.118 Atherosclerotic heart disease of native coronary artery with other forms of angina pectoris; Z95.5 Presence of coronary angioplasty implant and graft
CPT/HCPCS: 93798

== ENCOUNTER → 2021-08-01 | Outpatient (CLI) | payer MEDICARE, MEDICAID ==
[~2021-08-01] MED LIST changes: +GADOTERATE 0.5 MMOL/ML (CLARISCAN) 20 ML VIAL IV ONE
--- NOTE | 2021-08-01 11:12 | Diagnostic Imaging Report ---
Clinical Indication: Patient possible stroke. Patient has numbness in her face with loss of hearing in left ear. Exam: MRI of the brain performed without and with 20 cc of Clariscan IV contrast. Sequences include axial DWI, ADC map, axial gradient echo, axial FLAIR, axial T1, axial T2, axial T1 post IV contrast whole brain, coronal T1 fat-sat post IV contrast whole brain, and sagittal T1 fat-sat post IV contrast whole brain. Comparison: MRI of the brain with and without contrast dated 11/13/2020. Findings: There is no evidence of acute cerebral infarct, intracranial hemorrhage, or gross mass effect. There is no abnormal IV contrast enhancement. The brain parenchymal volume appears appropriate for patient's age. There is normal lehman-white matter distinction. There is no significant midline shift or herniation. The [place] vascular structures show no gross abnormality as visualized. The pituitary gland, sella, and suprasellar regions are unremarkable as visualized. There is no evidence of hydrocephalus. The basal cisterns are unremarkable. The skull, extracranial soft tissue, and orbits are unremarkable. Minimal mucosal thickening involving the ethmoid sinus and left maxillary sinus. Temporal bones show no significant abnormality. IMPRESSION: 1: Stable MRI of the brain with no evidence of acute intracranial process. 2: Minimal paranasal sinus disease. Dictated by: Dictated on workstation # [id number]
== END ==
LOC: RAD 10:15
PROVIDERS: ATTEND Pediatrics
DX: R20.0 Anesthesia of skin (principal); H91.92 Unspecified hearing loss, left ear; R29.810 Facial weakness
CPT/HCPCS: 70553

== ENCOUNTER 2021-08-10 09:44 | Outpatient (CLI) | payer MEDICARE, MEDICAID | END 2021-08-10 10:30 | LOC: SLEEP 09:44 | PROVIDERS: ATTEND Internal Medicine Critical Care Medicine | DX: G47.33 Obstructive sleep apnea (adult) (pediatric) (principal) | CPT/HCPCS: G0399 ==

== ENCOUNTER → 2021-08-10 | Outpatient (CLI) | payer MEDICARE, MEDICAID ==
[~2021-08-10] MED LIST changes: -GADOTERATE 0.5 MMOL/ML (CLARISCAN) 20 ML VIAL IV ONE
== END ==
LOC: CARD 10:00
PROVIDERS: ATTEND Nurse Practitioner Family
DX: R00.2 Palpitations (principal)
CPT/HCPCS: 93225; 93226

== ENCOUNTER 2021-08-20 09:31 | Outpatient (RCR) | payer MEDICARE, MEDICAID | END 2021-08-30 | disposition home or self-care (01) | LOC: CR3 09:31 | PROVIDERS: ATTEND Internal Medicine Cardiovascular Disease | DX: Z29.8 Encounter for other specified prophylactic measures (principal) ==

== ENCOUNTER → 2021-08-21 | Day surgery (SDC) | payer MEDICARE, MEDICAID ==
[~2021-08-21] VITALS: Ht 154.9 cm; Wt 107.8 kg
[~2021-08-21] MED LIST changes: +LIDOCAINE 1% INJ 20 ML VIAL INJ ONE; +LIDOCAINE 1% INJ 20 ML VIAL ONE
--- NOTE | 2021-08-21 18:24 | OPERATIVE REPORT ---
DATE OF SERVICE: 08/21/2021 PREOPERATIVE DIAGNOSIS: Cryptogenic stroke. POSTOPERATIVE DIAGNOSIS: Cryptogenic stroke. PROCEDURE PERFORMED: Implantable loop recorder implantation. DESCRIPTION OF PROCEDURE: Implantable loop recorder implantation was carried out after having obtained an informed consent. [facility] The left prepectoral area was prepared and draped in the usual sterile fashion. Lidocaine 1% was used for local anesthesia. The tools provided with the Es[employer] LINQ II device were used to make a subcutaneous pocket anterior to the left fourth intercostal space into which the device was placed and the wound edges were closed using Dermabond and Steri-Strips. She tolerated the procedure well. The serial number of the device is [id number]. Job ID: [id number] DocumentID: [id number] Dictated Date: 08/21/2021 10:39:22 Manager Sales Support Date: 08/21/2021 18:24:05 Dictated By: SERENITY NINO MD, MA, FACP, FACC,
== END ==
LOC: CATH 09:00
PROVIDERS: ATTEND Internal Medicine Cardiovascular Disease
DX: I63.9 Cerebral infarction, unspecified (principal); G47.33 Obstructive sleep apnea (adult) (pediatric); I25.10 Atherosclerotic heart disease of native coronary artery without angina pectoris; I10 Essential (primary) hypertension; M34.9 Systemic sclerosis, unspecified; E78.2 Mixed hyperlipidemia; I65.23 Occlusion and stenosis of bilateral carotid arteries
CPT/HCPCS: 33285; C1764

== ENCOUNTER 2021-09-26 09:31 | Outpatient (RCR) | payer MEDICARE, MEDICAID ==
[~2021-09-26 09:31] MED LIST changes: -LIDOCAINE 1% INJ 20 ML VIAL INJ ONE; -LIDOCAINE 1% INJ 20 ML VIAL ONE
[2021-10-01] MEDS ORDERED: AMLO2.5T4 PO (13:54)
[2021-10-01] MEDS ORDERED: SEMA0.25 SQ (13:54)
[2021-10-24] MEDS ORDERED: FLUT15.845 NS (17:04)
== END 2021-10-30 | disposition home or self-care (01) ==
LOC: CR3 09:31
PROVIDERS: ATTEND Internal Medicine Cardiovascular Disease
DX: Z29.8 Encounter for other specified prophylactic measures (principal)

== ENCOUNTER 2021-10-01 05:37 | Outpatient (CLI) | payer MEDICARE, MEDICAID ==
[~2021-10-01] VITALS: Ht 154.9 cm; Wt 106.1 kg
[2021-10-01] MEDS ORDERED: SEMA0.25 SQ (13:54)
[2021-10-01] MEDS ORDERED: AMLO2.5T4 PO (13:54)
== END 2021-10-01 14:00 | disposition home or self-care (01) ==
LOC: PREOP 05:37
PROVIDERS: ATTEND Obstetrics & Gynecology
DX: Z01.818 Encounter for other preprocedural examination (principal)

== ENCOUNTER 2021-10-08 10:02 | Day surgery (SDC) | payer MEDICARE, MEDICAID ==
[2021-10-08] VITALS (10 sets, daily range): BP systolic 88–108; BP diastolic 43–71
[~2021-10-08] VITALS: Ht 154.9 cm; Wt 106.1 kg
[~2021-10-08 10:02] MED LIST changes: +AMLO2.5T4 PO; +SEMA0.25 SQ
[2021-10-08] MEDS ORDERED: LACTATED RINGERS 1,000 ML IV PRN (10:30)
[2021-10-08 11:32] LABS: BASOPHILS % (AUTO) 0 % (0-10); EOSINOPHILS # (AUTO) 0.2 10^3/uL (0.0-0.3); EOSINOPHILS % (AUTO) 3 % (0-10); HEMATOCRIT 42 % (35-52); HEMOGLOBIN 14.6 g/dL (11.5-16.0); LYMPHOCYTES # (AUTO) 1.6 10^3/uL (1.0-4.0); LYMPHOCYTES % (AUTO) 24 % (12-44); MEAN CORPUSCULAR HEMOGLOBIN 31 pg (25-34); MEAN CORPUSCULAR HGB CONC 35 g/dL (32-36); MEAN CORPUSCULAR VOLUME 89 fL (80-99); MEAN PLATELET VOLUME 9.4 fL (9.0-12.2); MONOCYTES # (AUTO) 0.7 10^3/uL (0.0-1.0); MONOCYTES % (AUTO) 10 % (0-12); NEUTROPHILS # (AUTO) 4.3 10^3/uL (1.8-7.8); NEUTROPHILS % (AUTO) 63 % (42-75); PLATELET COUNT 247 10^3/uL (130-400); WHITE BLOOD COUNT 6.8 10^3/uL (4.3-11.0)
--- NOTE | 2021-10-08 11:39 | History & Physical-Surgical ---
HPO-Surgical History of Present Illness Chief Complaint: PMB Diagnosis/Surgical Indication: PMB, THICKENED ENDOMETERIUM Procedure: D&C Date of Surgery: Oct 08, 2021 Allergies and Home Medications Allergies Coded Allergies: nitrofurantoin (Verified Allergy, Severe, 03/02/20) shellfish derived (Verified Allergy, Severe, 03/02/20) atorvastatin (Verified Allergy, Intermediate, 03/02/20) pt states it makes her hurt all over/extreme pain Penicillins (Unverified Allergy, Mild, 06/09/08) Proton Pump Inhibitors (Verified Allergy, Unknown, ANGINA, 02/20/21) codeine (Verified Allergy, Unknown, 03/02/20) Patient Home Medication List Home Medication List Reviewed: Yes Albuterol Sulfate (Ventolin Hfa) 90 Mcg Hfa.aer.ad, 2 PUFF INH Q4H PRN for SHORTNESS OF BREATH, (Reported) Entered as Reported by: ISABELLA CARDOZO on 07/18/21 1548 Amlodipine Besylate (Amlodipine Besylate) 2.5 Mg Tablet, 2.5 MG PO DAILY, (Reported) Entered as Reported by: ELIZABETH NOLASCO on 10/01/21 1354 Aspirin (Aspirin EC) 81 Mg Tablet.dr, 81 MG PO DAILY, (Reported) Entered as Reported by: ISABELLA CARDOZO on 02/20/21 1335 Citalopram Hydrobromide (Citalopram HBr) 20 Mg Tablet, 20 MG PO HS, (Reported) Entered as Reported by: ISABELLA CARDOZO on 07/18/21 1548 Clopidogrel Bisulfate (Clopidogrel) 75 Mg Tablet, 75 MG PO DAILY, (Reported) Entered as Reported by: ISABELLA CARDOZO on 02/20/21 1335 Diclofenac Sodium (Voltaren Arthritis Pain) 20 Gm Gel..gram., 1 APPLIC TP TID PRN for PAIN-BREAKTHROUGH, (Reported) Entered as Reported by: ISABELLA CARDOZO on 03/02/20 1138 Diphenhydramine HCl (Diphenhydramine HCl) 25 Mg Capsule, 25 MG PO DAILY, (Reported) Entered as Reported by: ISABELLA CARDOZO on 03/02/20 1138 Ezetimibe (Zetia) 10 Mg Tablet, 10 MG PO HS, (Reported) Entered as Reported by: YENNI WOMACK on 07/18/21 1316 Isosorbide Mononitrate (Isosorbide Mononitrate ER) 30 Mg Tab.er.24h, 60 MG PO 1500, (Reported) Entered as Reported by: ISABELLA CARDOZO on 02/20/21 1335 Levothyroxine Sodium (Levothyroxine Sodium) 50 Mcg Tablet, 50 MCG PO DAILY, (Reported) Entered as Reported by: ISABELLA CARDOZO on 02/20/21 1335 Loratadine (Loratadine) 10 Mg Tablet, 10 MG PO HS, (Reported) Entered as Reported by: ISABELLA CARDOZO on 07/18/21 1548 Magnesium Oxide (Magnesium) 250 Mg Tablet, 250 MG PO DAILY, (Reported) Entered as Reported by: ISABELLA CARDOZO on 03/02/20 1138 Metoprolol Succinate (Metoprolol Succinate) 50 Mg Tab.er.24h, 50 MG PO DAILY, (Reported) Entered as Reported by: ISABELLA CARDOZO on 04/20/20 1600 Mv-Mn/Folic Acid/Calcium/Vit K (Women's 50 Plus Multivit Tab) 1 Each Tablet, 1 EACH PO DAILY, (Reported) Entered as Reported by: ISABELLA CARDOZO on 02/20/21 1335 Nitroglycerin (Nitroglycerin) 0.4 Mg Tab.subl, 0.4 MG SL UD PRN for CHEST PAIN, (Reported) Entered as Reported by: ISABELLA CARDOZO on 06/27/20 0954 Oxymetazoline HCl (Oxymetazoline HCl) 30 Ml [place], 1-2 SPRAYS NS UD PRN for CONGESTION, (Reported) Entered as Reported by: ISABELLA CARDOZO on 06/08/20 1109 Ranolazine (Ranolazine ER) 500 Mg Tab.er.12h, 500 MG PO BID, (Reported) Entered as Reported by: ISABELLA CARDOZO on 02/20/21 1335 Rosuvastatin Calcium (Rosuvastatin Calcium) 40 Mg Tablet, 40 MG PO HS Prescribed by: LULU WAGNER on 07/19/21 0932 Semaglutide (Ozempic) 0.25 Mg/0.2 Ml Pen.injctr, 0.5 MG SQ WEEK, (Reported) Entered as Reported by: ELIZABETH NOLASCO on 10/01/21 1354 Trazodone HCl (Trazodone HCl) 50 Mg Tablet, 25-50 MG PO HS, (Reported) Entered as Reported by: ISABELLA CARDOZO on 07/18/211547 Discontinued Medications Desonide (Desonide) 0.05 % Cream..g., 1 APPLIC TP BID PRN for RASH, (Reported) Discontinued Reason: No Longer Taking Entered as Reported by: ISABELLA CARDOZO on 07/18/211547 Diphenhydramine HCl (Diphenhydramine HCl) 25 Mg Capsule, 75 MG PO HS, (Reported) Discontinued Reason: No Longer Taking Entered as Reported by: ISABELLA CARDOZO on 07/18/211547 Hydrocortisone (Hydrocortisone) 1 % Cream..g., 1 APPLIC TP UD PRN for ITCHING, (Reported) Discontinued Reason: No Longer Taking Entered as Reported by: ISABELLA CARDOZO on 07/18/211547 Magnesium (Magnesium) 250 Mg Tablet, 500 MG PO HS, (Reported) Discontinued Reason: No Longer Taking Entered as Reported by: ISABELLA CARDOZO on 07/18/211547 Past Qasljsv-Rcdapv-Hlnvlv Hx Patient Social History 2nd Hand Smoke Exposure: Yes Recent Hopitalizations: No Immunizations Up To Date Tetanus Booster (TDap): Unknown Seasonal Allergies Seasonal Allergies: Yes Surgeries Yes (C-SPINE SURGERY; LEFT ELBOW ULNAR NERVE SURGERY;CARDIAC CATH-STENT X 1) Cardiac, Coronary Stent, Gallbladder, Orthopedic Respiratory Yes Cardiovascular Yes (PA X 2 ; STENT X 1) Chronic Edema/Swelling, Coronary Artery Disease, Heart Attack, High Cholesterol, Hypertension Neurological Yes 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 Genitourinary No Gastrointestinal Yes (S/P CHOLECYSTECTOMY; CELIAC DISEASE) Gall Bladder Disease Musculoskeletal Yes (SCLERODERMA; C-SPINE SURGERY; LEFT ELBOW ULNAR NERVE SURGERY) Rheumatoid Arthritis Endocrine History of Endocrine Disorders: Yes Endocrine Disorders: Hypothyroidsim HEENT History of HEENT Disorders: Yes (SINUS PROBLEMS) Cancer No Psychosocial History of Psychiatric Problem: Yes Behavioral Health Disorders: Anxiety, Depression Integumentary History of Skin or Integumenta: Yes Skin/Integumentary Disorders: Psoriasis Blood Transfusions History of Blood Disorders: No Family Medical History Other Significan Family Hx: PAST SURGICAL HISTORY: -CERVICAL SPINE SURGERY -LEFT ELBOW ULNAR NERVE SURGERY -CHOLECYSTECTOMY -CARDIAC CATHS-- -03/02/[address] MICA: CONCLUSIONS: 1. Coronary artery disease primarily consisting of 95% ostial stenosis of a first diagonal of the left anterior descending to which successful balloon angioplasty was carried out with reduced the stenosis to less than 30%. Elsewhere, the patient exhibits mild to moderate diffuse coronary plaques. 2. Normal global left ventricular systolic function with an ejection fraction of approximately 60%. 3. Elevated left ventricular end-diastolic pressure. -HAD STENT X 1 PLACED 06/10/20 AT [facility]. -LAST CARDIAC CATH DONE HERE 06/27/[address] NINO: CONCLUSIONS: 1. Mild coronary artery disease. 2. Patent stent in the mid left anterior descending artery. 3. Normal global left ventricular systolic function with ejection fraction of 55% to 60%. 4. Normal left ventricular end-diastolic pressure. Family Hx: Alcoholism G8 BROTHER, Onset:15's - 20 Arthritis 19 MOTHER, Onset:Adolescence G8 BROTHER, Onset:Adolescence G8 SISTER, Onset:25's - 30 Asthma G8 BROTHER Cataracts 19 FATHER, Onset:60 years & older Deafness or hearing loss 19 FATHER Dementia 19 FATHER Diabetes mellitus 19 MOTHER G8 BROTHER Hypertension 19 FATHER G8 BROTHER Myocardial infarction 19 FATHER, Onset:60 years & older G8 BROTHER, Onset:40's - 50 Psychosocial problem G8 BROTHER, Onset:25's - 30 Severe allergy 19 FATHER, Onset:[place] 19 MOTHER, Onset:Childhood Exam Vital Signs Capillary Refill : Labs Laboratory Tests Test 10/08/21 11:05 Range/Units White Blood Count 6.8 4.3-11.0 10^3/uL Red Blood Count 4.67 3.80-5.11 10^6/uL Hemoglobin 14.6 11.5-16.0 g/dL Hematocrit 42 35-52 % Mean Corpuscular Volume 89 80-99 fL Mean Corpuscular Hemoglobin 31 25-34 pg Mean Corpuscular Hemoglobin Concent 35 32-36 g/dL Red Cell Distribution Width 11.9 10.0-14.5 % Platelet Count 247 130-400 10^3/uL Mean Platelet Volume 9.4 9.0-12.2 fL Immature Granulocyte % (Auto) 0 % Neutrophils (%) (Auto) 63 42-75 % Lymphocytes (%) (Auto) 24 12-44 % Monocytes (%) (Auto) 10 0-12 % Eosinophils (%) (Auto) 3 0-10 % Basophils (%) (Auto) 0 0-10 % Neutrophils # (Auto) 4.3 1.8-7.8 10^3/uL Lymphocytes # (Auto) 1.6 1.0-4.0 10^3/uL Monocytes # (Auto) 0.7 0.0-1.0 10^3/uL Eosinophils # (Auto) 0.2 0.0-0.3 10^3/uL Basophils # (Auto) 0.0 0.0-0.1 10^3/uL Immature Granulocyte # (Auto) 0.0 0.0-0.1 10^3/uL General Appearance: Alert, Oriented X3 HEENT: Atraumatic Respiratory: Clear to Auscultation Cardiovascular: Regular Rate Abdominal: Normal Bowel Sounds Neuro: Normal Gait Psych/Mental Status: Mental Status NL Assessment/Plan Assessment and Plan Diagnosis: 56 yo female with PMB Thickened endometrium on US P: D and C Admission Diagnosis 56 yo female with PMB Thickened endometrium on US Admission Status: Other (Same Day Surgery) ANTONI SULLIVAN DO Oct 08, 2021 11:39
--- NOTE | 2021-10-08 11:41 | Discharge Inst-Women's Service ---
Discharge Inst-Women's Serv Depart Medication/Instructions New, Converted or Re-Newed RX: Transmitted to Pharmacy Problems Reviewed?: Yes Consults/Follow Up Additional Follow Up: Yes Orders/Referrals Dr. Sullivan in 2 weeks Activity Activity: Activity as Tolerated Driving Instructions: You May Drive NO SMOKING: NO SMOKING Nothing Inside Vagina: No Douching, No [place], No Tampons Diet Discharge Diet: No Restrictions Symptoms to Report to : Bleeding Excessive, Pain Increased, Fever Over 101 Degrees F, Vaginal Bleeding Increase, Questions/Concerns For Any Problems or Questions: Contact Your Physician ANTONI SULLIVAN DO Oct 08, 2021 11:41
[2021-10-08] MEDS ORDERED: ONDANSETRON 4 MG/2 ML (SDV) Z0FRAN IVP PRN ×2 (11:45→14:00)
[2021-10-08] MEDS ORDERED: D5 LR IV SOLUTION 1,000 ML IV SCH (11:45)
[2021-10-08] MEDS ORDERED: KETOROLAC 30 MG/ML VIAL IVP ONE (11:45)
[2021-10-08 12:14] LABS: INR 0.9 (0.8-1.4)
[2021-10-08] MEDS ORDERED: proPOfol 200 MG/20 ML (DIPRIVAN) VIAL IV ONE (13:17)
[2021-10-08] MEDS ORDERED: ONDANSETRON 4 MG/2 ML (SDV) Z0FRAN ONE (13:17)
[2021-10-08] MEDS ORDERED: MIDAZOLAM 2 MG/2 ML (VERSED) VIAL ONE (13:17)
[2021-10-08] MEDS ORDERED: SEVOFLURANE (ULTANE) 15 ML INHAL SOLN ONE (13:17)
[2021-10-08] MEDS ORDERED: fentaNYL INJ 100 MCG/2 ML AMP ONE (13:17)
[2021-10-08] MEDS ORDERED: LIDOCAINE PF 2% 5 ML (XYLOCAINE) VIAL ONE (13:17)
[2021-10-08] MEDS ORDERED: PHENYLEPHRINE 100 MCG/ML 10 ML (ANESTHESIA) SYR ONE (13:31)
[2021-10-08] MEDS ORDERED: BUPIVACAINE 0.25% 30 ML (SENSORCAINE) VIAL ONE (13:35)
[2021-10-08] MEDS ORDERED: BUPIVACAINE 0.25% 30 ML (SENSORCAINE) VIAL INJ ONE (13:45)
[2021-10-08] MEDS ORDERED: HYDROmorphone 2 MG/ML VIAL (DILAUDID) IV ONE (14:00)
[2021-10-08] MEDS ORDERED: KETOROLAC 30 MG/ML VIAL ONE (14:04)
--- NOTE | 2021-10-08 14:12 | Anesthesia-General Post-Op ---
General Patient Condition Mental Status/LOC: Same as Preop Cardiovascular: Satisfactory Nausea/Vomiting: Absent Respiratory: Satisfactory Pain: Controlled Complications: Absent Post Op Complications Complications None Follow Up Care/Instructions Patient Instructions None needed. Anesthesia/Patient Condition Patient Condition Patient is doing well, no complaints, stable vital signs, no apparent adverse anesthesia problems. No complications reported per nursing. [place] [facility] Yes LUZ LOPEZ CRNA Oct 08, 2021 14:12
--- NOTE | 2021-10-08 20:00 | OPERATIVE REPORT ---
DATE OF SERVICE: PREOPERATIVE DIAGNOSES: A 56-year-old female with postmenopausal bleeding. POSTOPERATIVE DIAGNOSES: A 56-year-old female with postmenopausal bleeding. PROCEDURE: D and C. SURGEON: Antoni Sullivan DO ANESTHESIA: LMA general. ESTIMATED BLOOD LOSS: Minimal. URINE OUTPUT: 50 mL drained at start of procedure. FLUIDS: 800 mL lactated Ringer's solution. FINDINGS: Grossly normal appearing external female genitalia, normal appearing cervix and vagina, small to moderate amount of endometrial tissue collected on curettings. SPECIMEN SENT: Endometrial curettings. INDICATIONS FOR PROCEDURE: This 56-year-old female is a patient who wanted endometrial sampling in the office. She had postmenopausal bleeding episodes and a thickened endometrium on prior ultrasound. I discussed with the patient biopsy in the office versus D and C, how D and C could be potentially curative. Risks of the procedure were discussed with the patient in detail and after all questions were answered, she agreed to proceed with D and C. Consent was obtained in preoperative area and the patient was taken to the operating room. OPERATIVE REPORT IN DETAIL: Once in the operating room, anesthesia was found to be adequate. She was placed in dorsal lithotomy position, prepped and draped in normal sterile fashion. A timeout was performed. A weighted speculum inserted to the patient's vagina after straight catheterization is performed. A right angle retractor was used to visualize the cervix, which was grasped at 12 o'clock position using long Allis clamp. Paracervical block was then performed at 3 and 9 o'clock positions on the cervix. Care was taken to aspirate for injecting 5 mL of 0.25% Marcaine injected into each site. I then gently sound the uterine cavity, depth was found to be 8 cm. I then gently dilated the cervix using Hanks dilators to maximum dilatation approximately 1 cm, at which point I performed a gentle curettage using a medium size endometrial curette of the endometrial cavity. All this tissue was collected and sent as endometrial curettings. There was no active bleeding noted on the cervix. After this was performed, all instruments were removed from the patient's vagina. The patient tolerated the procedure well and sent to recovery area in stable condition. Lap and sponge counts were correct at the end of the procedure. Instrument counts correct as well. Job ID: [id number] DocumentID: [id number] Dictated Date: 10/08/2021 13:43:11 Sequins Stringer Date: 10/08/2021 20:00:01 Dictated By: ANTONI SULLIVAN DO
== END 2021-10-08 15:40 | disposition home or self-care (01) ==
LOC: SDC 10:02
PROVIDERS: ATTEND Obstetrics & Gynecology
DX: N84.0 Polyp of corpus uteri (principal); G47.33 Obstructive sleep apnea (adult) (pediatric); Z88.5 Allergy status to narcotic agent; Z88.0 Allergy status to penicillin; Z95.5 Presence of coronary angioplasty implant and graft; Z79.82 Long term (current) use of aspirin
CPT/HCPCS: 36415; 85025; 85610; 86850; 86900; 86901; 87081; 88305

== ENCOUNTER → 2021-10-24 | Outpatient (CLI) | payer MEDICARE, MEDICAID ==
[~2021-10-24] VITALS: Ht 154.9 cm; Wt 107.5 kg
[~2021-10-24] MED LIST changes: +FLUT15.845 NS
== END ==
LOC: PREOP 05:42
PROVIDERS: ATTEND Surgery
DX: Z01.818 Encounter for other preprocedural examination (principal); Z12.11 Encounter for screening for malignant neoplasm of colon

== ENCOUNTER 2021-11-06 10:57 | Day surgery (SDC) | payer MEDICARE, MEDICAID ==
[~2021-11-06] VITALS: Ht 155 cm; Wt 107.5 kg
[2021-11-06] MEDS ORDERED: LACTATED RINGERS 1,000 ML IV STA (10:59)
[2021-11-06] MEDS ORDERED: HURRICAINE EXT TUBE (BENZOCAINE) XX PRN (11:00)
[2021-11-06 11:10] VITALS: BP 120/72
[2021-11-06] MEDS ORDERED: MIDAZOLAM 2 MG/2 ML (VERSED) VIAL ONE (12:44)
[2021-11-06] MEDS ORDERED: PROPOFOL INJECTION 50 ML IV ONE (12:44)
--- NOTE | 2021-11-06 14:11 | Progress Note-Post Operative ---
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
--- NOTE | 2021-11-06 14:12 | Discharge Inst-Simple/Standard ---
Discharge Inst-Standard Patient Instructions/Follow Up Plan of Care/Instructions/FU: 2 weeks Bianca Activity as Tolerated: Yes Discharge Diet: Regular Diet INA ARAMBULA DO Nov 06, 2021 14:12
[2021-11-06 14:16] VITALS: BP 92/69
[2021-11-06 14:20] VITALS: BP 103/57
[2021-11-06 14:45] VITALS: BP 106/60
[2021-11-06 14:50] VITALS: BP 106/60
--- NOTE | 2021-11-06 15:08 | Anesthesia-General Post-Op ---
MAC Patient Condition Mental Status/LOC: Same as Preop Cardiovascular: Satisfactory Nausea/Vomiting: Absent Respiratory: Satisfactory Pain: Controlled Complications: Absent Post Op Complications Complications None Follow Up Care/Instructions Patient Instructions None needed. Anesthesiology Discharge Order Discharge Order Patient was doing well after the procedure with no complaints, stable vital signs, no apparent adverse anesthesia problems. No complications reported per nursing. STACY PEDRAZA DO Nov 06, 2021 15:07
--- NOTE | 2021-11-06 17:37 | OPERATIVE REPORT ---
DATE OF SERVICE: 11/06/2021 PREOPERATIVE DIAGNOSES: Celiac, dysphagia, and screening colonoscopy. POSTOPERATIVE DIAGNOSES: Gastritis, normal colon. PROCEDURES PERFORMED: EGD with biopsies, colonoscopy. SURGEON: Ina Valenzuela DO ANESTHESIA: Per MDA. ESTIMATED BLOOD LOSS: None. COMPLICATIONS: None. SPECIMENS: Duodenum, antrum, and GE junction. INDICATIONS FOR PROCEDURE: The patient is a 56-year-old female who has celiac and having some slight dysphagia and also needing screening colonoscopy. She understands the risks and benefits of the procedure and wished to proceed. Consent was signed in the chart. DESCRIPTION OF PROCEDURE: The patient was taken to the endoscopy suite and placed in the left lateral recumbent position. A timeout was performed. Scope was inserted in mouth, down the esophagus, stomach and into the duodenum without difficulty. There were no polyps, masses or ulcerations. Biopsy of the duodenum was obtained. Scope was then slowly retracted back. Stomach had a slight gastritis appearance, very faint, and biopsy of the antrum was obtained. Scope was retroflexed noting no other pathology. No polyps, masses or ulcerations. Scope was returned to its normal position, slowly withdrawn until completely removed from the stomach and into the esophagus. At the distal portion, no polyps, masses or ulcerations. Scope was slowly retracted back until completely removed noting no other pathology. A digital rectal exam was performed. Slight hemorrhoidal disease. No palpable polyps, masses or ulcerations. Scope was inserted in the rectum and advanced all the way to cecum with minimal difficulty. Prep was adequate with irrigation and suction. Scope was then slowly retracted back. No polyps, masses or ulcerations within the cecum, ascending, transverse, descending and sigmoid colon. Once in the rectum, the rectum was narrow, so retroflexion could not be done, so multiple insertions and retractions were made noting no other pathology. Scope was then slowly retracted back until completely removed. The patient tolerated the procedure well without any complications. She was taken to recovery room in stable condition. RECOMMENDATIONS: The patient will need repeat colonoscopy in 10 years unless family history of colon cancer, which would then be 5 years or any personal history of polyps, which would then be 5 years. Any issues before that be seen at that time. The patient to follow up on biopsies. We will continue on current medications at this time, but will consider adding a PPI. Job ID: [id number] DocumentID: [id number] Dictated Date: 11/06/2021 14:15:24 Manager Sports Date: 11/06/2021 17:36:51 Dictated By: INA VALENZUELA DO
== END 2021-11-06 14:45 | disposition home or self-care (01) ==
LOC: ENDO 10:57
PROVIDERS: ATTEND Surgery
DX: Z12.11 Encounter for screening for malignant neoplasm of colon (principal); K31.89 Other diseases of stomach and duodenum; K29.70 Gastritis, unspecified, without bleeding; E66.9 Obesity, unspecified; Z68.42 Body mass index [BMI] 45.0-49.9, adult; G47.33 Obstructive sleep apnea (adult) (pediatric); Z79.899 Other long term (current) drug therapy
CPT/HCPCS: 88305; G0121

== ENCOUNTER 2021-12-01 12:35 | Inpatient (IN) | payer MEDICARE, MEDICAID ==
[~2021-12-01] VITALS: Ht 154 cm; Wt 112.1 kg
[2021-12-01] MEDS ORDERED: LACTATED RINGERS 2,000 ML IV ONE (12:42)
[2021-12-01] MEDS ORDERED: ONDANSETRON 4 MG/2 ML (SDV) Z0FRAN ONE (12:42)
[2021-12-01 13:11] LABS: HEMOGLOBIN 15.3 g/dL (11.5-16.0)
[2021-12-01 13:12] LABS: BASOPHILS % (AUTO) 0 % (0-10); EOSINOPHILS # (AUTO) 0.1 10^3/uL (0.0-0.3); EOSINOPHILS % (AUTO) 1 % (0-10); HEMATOCRIT 43 % (35-52); LYMPHOCYTES # (AUTO) 1.5 10^3/uL (1.0-4.0); LYMPHOCYTES % (AUTO) 18 % (12-44); MEAN CORPUSCULAR HEMOGLOBIN 32 pg (25-34); MEAN CORPUSCULAR HGB CONC 36 g/dL (32-36); MEAN CORPUSCULAR VOLUME 90 fL (80-99); MEAN PLATELET VOLUME 9.2 fL (9.0-12.2); MONOCYTES # (AUTO) 0.8 10^3/uL (0.0-1.0); MONOCYTES % (AUTO) 10 % (0-12); NEUTROPHILS # (AUTO) 5.8 10^3/uL (1.8-7.8); NEUTROPHILS % (AUTO) 70 % (42-75); PLATELET COUNT 276 10^3/uL (130-400); WHITE BLOOD COUNT 8.3 10^3/uL (4.3-11.0)
--- NOTE | 2021-12-01 13:12 | ED Neurological Problem ---
General Chief Complaint: Neurological Problems Stated Complaint: STROKE Nursing Triage Note: Pt here with left side of face and right side of body numbness with onset 1140 hours today. Pt is A&Ox4. Pt is able to answer questions appropriately. Source: patient Exam Limitations: no limitations History of Present Illness Date Seen by Provider: Dec 01, 2021 Time Seen by Provider: 12:44 Initial Comments Patient to the ER by EMS from home with chief complaint at 1145 she had a sudden onset of left facial numbness, right leg and right arm weakness. She has a history of strokes in May, 6 months ago with just minor resultant weakness in her right leg and her left face. She is not having any facial droop. She has difficulty expressing herself today. She is not diabetic. She has a history of a stent and coronary disease followed by Dr. Vora. She follows with a neurologist in [place]. She thinks she has a history of atrial fibrillation and is on Plavix and aspirin but no blood thinner. She is not experiencing any pain shortness of air fevers chills nausea vomiting diarrhea constipation cough etc. she has a history of hyper lipidemia but no hypertension. Patient states she does not use any assistive devices to walk at baseline and she is not able to walk since 1 hour prior to arrival when the symptoms began. Echocardiogram 02/19 showed EF of 60 to 65%. Cardiac catheterization 04/23 I had a EF of 50 to 55% and 95% restenosis in the mid LAD. And recatheterization 06/21 had severe LAD stenosis and was transferred to [place]. She had PCI by Dr. Brewer at [facility]. Repeat cardiac catheterization 06/26/2020 demonstrated a patent LAD stent. More recently she had a cardiac catheterization 12/[address] Scott at [facility] in [facility] which showed LAD with a patent stent and 80% stenosis and small vessel disease. She also has a pertinent history of hypertension, scleredema, celiac disease, hyperlipidemia and undetermined etiology palpitations per Dr. Vora's note. She is managed by Dr. Isabella Ureña at [facility]. Allergies and Home Medications Allergies Coded Allergies: nitrofurantoin (Verified Allergy, Severe, 03/02/20) shellfish derived (Verified Allergy, Severe, 03/02/20) atorvastatin (Verified Allergy, Intermediate, 03/02/20) pt states it makes her hurt all over/extreme pain Penicillins (Unverified Allergy, Mild, 06/09/08) Proton Pump Inhibitors (Verified Allergy, Unknown, ANGINA, 02/20/21) codeine (Verified Allergy, Unknown, 03/02/20) Patient Home Medication List Home Medication List Reviewed: Yes Albuterol Sulfate (Ventolin Hfa) 90 Mcg Hfa.aer.ad, 2 PUFF INH Q4H PRN for SHORTNESS OF BREATH, (Reported) Entered as Reported by: ISABELLA CARDOZO on 07/18/21 1548 Amlodipine Besylate (Amlodipine Besylate) 2.5 Mg Tablet, 2.5 MG PO DAILY, (Reported) Entered as Reported by: ELIZABETH NOLASCO on 10/01/21 1354 Aspirin (Aspirin EC) 81 Mg Tablet.dr, 81 MG PO DAILY, (Reported) Entered as Reported by: ISABELLA CARDOZO on 02/20/21 1335 Citalopram Hydrobromide (Citalopram HBr) 20 Mg Tablet, 20 MG PO HS, (Reported) Entered as Reported by: ISABELLA CARDOZO on 07/18/21 1548 Clopidogrel Bisulfate (Clopidogrel) 75 Mg Tablet, 75 MG PO DAILY, (Reported) Entered as Reported by: ISABELLA CARDOZO on 02/20/21 1335 Diphenhydramine HCl (Diphenhydramine HCl) 25 Mg Capsule, 25 MG PO DAILY, (Reported) Entered as Reported by: ISABELLA CARDOZO on 03/02/20 1138 Ezetimibe (Zetia) 10 Mg Tablet, 10 MG PO HS, (Reported) Entered as Reported by: YENNI WOMACK on 07/18/21 1316 Fluticasone Propionate (Fluticasone Propionate) 50 Mcg/Actuation [place].susp, 15.8 ML NS DAILY, (Reported) Entered as Reported by: HEAVENLY BENÍTEZ on 10/24/21 1704 Isosorbide Mononitrate (Isosorbide Mononitrate ER) 30 Mg Tab.er.24h, 60 MG PO 1500, (Reported) Entered as Reported by: ISABELLA CARDOZO on 02/20/21 1335 Levothyroxine Sodium (Levothyroxine Sodium) 50 Mcg Tablet, 50 MCG PO DAILY, (Reported) Entered as Reported by: ISABELLA CARDOZO on 02/20/21 1335 Loratadine (Loratadine) 10 Mg Tablet, 10 MG PO HS, (Reported) Entered as Reported by: ISABELLA CARDOZO on 07/18/21 1548 Metoprolol Succinate (Metoprolol Succinate) 50 Mg Tab.er.24h, 50 MG PO DAILY, (Reported) Entered as Reported by: ISABELLA CARDOZO on 04/20/20 1600 Mv-Mn/Folic Acid/Calcium/Vit K (Women's 50 Plus Multivit Tab) 1 Each Tablet, 1 EACH PO DAILY, (Reported) Entered as Reported by: ISABELLA CARDOZO on 02/20/21 1335 Nitroglycerin (Nitroglycerin) 0.4 Mg Tab.subl, 0.4 MG SL UD PRN for CHEST PAIN, (Reported) Entered as Reported by: ISABELLA CARDOZO on 06/27/20 0954 Ranolazine (Ranolazine ER) 500 Mg Tab.er.12h, 500 MG PO BID, (Reported) Entered as Reported by: ISABELLA CARDOZO on 02/20/21 1335 Rosuvastatin Calcium (Rosuvastatin Calcium) 40 Mg Tablet, 40 MG PO HS Prescribed by: LULU SAMANIEGO on 07/19/21 0932 Semaglutide (Ozempic) 0.25 Mg/0.2 Ml Pen.injctr, 0.5 MG SQ WEEK, (Reported) Entered as Reported by: ELIZABETH NOLASCO on 10/01/21 1354 Review of Systems Review of Systems Constitutional: No chills, No fever, No malaise; weakness Eyes: Denies Blindness, Denies Blurred Vision Ears, Nose, Mouth, Throat: denies ear pain, denies ear discharge Respiratory: No cough, No dyspnea on exertion, No phlegm Cardiovascular: No chest pain, No edema Gastrointestinal: No abdominal pain, No constipation, No diarrhea, No nausea Genitourinary: No discharge, No dysuria Musculoskeletal: see HPI; No back pain, No joint pain Psychiatric/Neurological: Denies Anxiety, Denies Depressed Past Mqtyocg-Rvnjpk-Mzuwel Hx Patient Social History Tobacco Use?: No Smoking Status: Never a Smoker Use of E-Cig and/or Vaping dev: No Substance use?: No Alcohol Use?: No Immunizations Up To Date Tetanus Booster (TDap): Unknown First/Initial COVID19 Vaccinat: 2020 Second COVID19 Vaccination Tu: 2020 Third COVID19 Vaccination Date: NO Seasonal Allergies Seasonal Allergies: Yes Past Medical History Surgeries: Yes (C-SPINE SURGERY; LEFT ELBOW ULNAR NERVE SURGERY;CARDIAC CATH- STENT X 1) Cardiac, Coronary Stent, Gallbladder, Orthopedic Respiratory: Yes Asthma, Sleep Apnea Currently Using CPAP: Yes Cardiac: Yes (NH X 2 ; STENT X 1, HAS CARDIAC LOOP RECORDER) Atrial Fibrillation, Chronic Edema/Swelling, Coronary Artery Disease, Heart Attack, High Cholesterol, Hypertension, Rheumatic Fever Neurological: Yes (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, L HEARING LOSS, L CHEEK NUMB) 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, 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 Genitourinary: No Gastrointestinal: Yes (S/P CHOLECYSTECTOMY; CELIAC DISEASE) Gall Bladder Disease Musculoskeletal: Yes (SCLERODERMA; C-SPINE SURGERY; LEFT ELBOW ULNAR NERVE SURGERY) Rheumatoid Arthritis Endocrine: Yes Hypothyroidsim HEENT: Yes (SINUS PROBLEMS,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) Cancer: No Psychosocial: Yes Anxiety, Depression Integumentary: Yes Psoriasis Blood Disorders: No Family Medical History Alcoholism G8 BROTHER, Onset:15's - 20 Arthritis 19 MOTHER, Onset:Adolescence G8 BROTHER, Onset:Adolescence G8 SISTER, Onset:25's - 30 Asthma G8 BROTHER Cataracts 19 FATHER, Onset:60 years & older Deafness or hearing loss 19 FATHER Dementia 19 FATHER Diabetes mellitus 19 MOTHER G8 BROTHER Hypertension 19 FATHER G8 BROTHER Myocardial infarction 19 FATHER, Onset:60 years & older G8 BROTHER, Onset:40's - 50 Psychosocial problem G8 BROTHER, Onset:25's - 30 Severe allergy 19 FATHER, Onset:[place] 19 MOTHER, Onset:Childhood PAST SURGICAL HISTORY: -CERVICAL SPINE SURGERY -LEFT ELBOW ULNAR NERVE SURGERY -CHOLECYSTECTOMY -CARDIAC CATHS-- -03/02/[address] VORA: CONCLUSIONS: 1. Coronary artery disease primarily consisting of 95% ostial stenosis of a first diagonal of the left anterior descending to which successful balloon angioplasty was carried out with reduced the stenosis to less than 30%. Elsewhere, the patient exhibits mild to moderate diffuse coronary plaques. 2. Normal global left ventricular systolic function with an ejection fraction of approximately 60%. 3. Elevated left ventricular end-diastolic pressure. -HAD STENT X 1 PLACED 06/10/20 AT [facility]. -LAST CARDIAC CATH DONE HERE 06/27/[address] VORA: CONCLUSIONS: 1. Mild coronary artery disease. 2. Patent stent in the mid left anterior descending artery. 3. Normal global left ventricular systolic function with ejection fraction of 55% to 60%. 4. Normal left ventricular end-diastolic pressure. Physical Exam Vital Signs Vital Signs - First Documented 12/01/21 12:39 Temp 37.0 Pulse 76 Resp 76 B/P (MAP) 135/78 (97) Pulse Ox 95 O2 Delivery Room Air Capillary Refill : Less Than 3 Seconds Height, Weight, BMI Height: '" Weight: lbs. oz. kg; 41.00 BMI Method:Estimated General Appearance: WD/WN, mild distress HEENT: PERRL/EOMI, normal ENT inspection, TMs normal, pharynx normal Neck: non-tender, full range of motion, normal inspection Respiratory: lungs clear, normal breath sounds, no respiratory distress, no accessory muscle use Cardiovascular: normal peripheral pulses, regular rate, rhythm Peripheral Pulses: 2+ Radial Pulses (R), 2+ Radial Pulses (L) Gastrointestinal: normal bowel sounds, non tender, soft Extremities: normal range of motion, non-tender, normal capillary refill Neurologic/Psychiatric: alert, normal mood/affect, oriented x 3, abnormal line puller II-XII (Decreased sensation all 3 branches of the trigeminal nerve without motor strength weakness) Crainal Nerves: normal hearing, normal speech, PERRL Coordination/Gait: normal finger to nose Motor/Sensory: pronator drift (R) (Upper and lower extremity), sensory deficit (Left face) Skin: normal color, warm/dry Stroke Onset of Symptoms Date of Onset of Symptoms: Dec 01, 2021 Time of Symptom Onset: 11:45 Onset of Symptoms: Yes Symptoms onset unknown: Yes NIH Stroke Scale Assessment Select: Initial Level of Consciousness: 0=Alert (0), Level of Consciousness- Questions: 0=Answers both month/age (0), LOC Commands: 0=Performs both tasks (0), Gaze: Normal (0), Visual Castillo: 0=No visual loss (0), Facial Movement (Facial Paresis): 0=Normal symmetrical mnt (0), Motor Function-Arms Right: 1=Drift (1), Motor Function-Arms Left: 0=No drift (0), Motor Function-Legs Right: 1=Drift (1), Motor Function-Legs Left: 0=No drift (0), Limb Ataxia: 0=Absent (0), Sensory: 1=Mild to Moderate loss (1), Best Language: 1=Mild to moderat aphasia (1), Dysarthria: 1=Mild to moderate loss (1), Extinction & Inattention: 0=No abnormality (0), Total: 5 Stroke Thrombolytic Exclusion Age 18 or Over: Yes Acute intenal hemorrhage: No History of CVA: Yes Uncontrolled Coagulation Defec: No Intracranial Hemorrhage: No Severe Hypertension: No GI or Bleed: No Subarachnoid Hemorrhage: No Intracranial Neoplasm/Aneurysm: No Oral Anticoagulants: No Surgery or Trauma: No Puncture of Non-Compressible V: No Recent CPR: No Diabetic Hemorrhagic Retinopat: No Organ Biopsy: No Recent Obstetric Delivery: No Glucose: No (116) Significant Hepatic Dysfunctio: No NIH Stoke Scale >22: No Bacterial Endocarditis: No Pericarditis: No Improving Symptoms: No Platelets: No TPA Contraindication: No Procedures/Interventions Suture Size: 5-0 Progress/Results/Core Measures Results/Orders Lab Results Laboratory Tests Test 12/01/21 12:41 12/01/21 12:46 12/01/21 13:43 Range/Units White Blood Count 8.3 4.3-11.0 10^3/uL Red Blood Count 4.74 3.80-5.11 10^6/uL Hemoglobin 15.3 11.5-16.0 g/dL Hematocrit 43 35-52 % Mean Corpuscular Volume 90 80-99 fL Mean Corpuscular Hemoglobin 32 25-34 pg Mean Corpuscular Hemoglobin Concent 36 32-36 g/dL Red Cell Distribution Width 12.3 10.0-14.5 % Platelet Count 276 130-400 10^3/uL Mean Platelet Volume 9.2 9.0-12.2 fL Immature Granulocyte % (Auto) 1 % Neutrophils (%) (Auto) 70 42-75 % Lymphocytes (%) (Auto) 18 12-44 % Monocytes (%) (Auto) 10 0-12 % Eosinophils (%) (Auto) 1 0-10 % Basophils (%) (Auto) 0 0-10 % Neutrophils # (Auto) 5.8 1.8-7.8 10^3/uL Lymphocytes # (Auto) 1.5 1.0-4.0 10^3/uL Monocytes # (Auto) 0.8 0.0-1.0 10^3/uL Eosinophils # (Auto) 0.1 0.0-0.3 10^3/uL Basophils # (Auto) 0.0 0.0-0.1 10^3/uL Immature Granulocyte # (Auto) 0.0 0.0-0.1 10^3/uL Percent Immature Platelet Fraction 1.5 0.0-7.6 % Prothrombin Time 13.4 12.2-14.7 SEC INR Comment 1.0 0.8-1.4 Activated Partial Thromboplast Time 29 24-35 SEC D-Dimer <= 0.27 0.00-0.49 UG/ML Sodium Level 136 135-145 MMOL/L Potassium Level 4.4 3.6-5.0 MMOL/L Chloride Level 103 98-107 MMOL/L Carbon Dioxide Level 24 21-32 MMOL/L Anion Gap 9 5-14 MMOL/L Blood Urea Nitrogen 14 7-18 MG/DL Creatinine 0.86 0.60-1.30 MG/DL Estimat Glomerular Filtration Rate 78 BUN/Creatinine Ratio 16 Glucose Level 103 70-105 MG/DL Calcium Level 9.4 8.5-10.1 MG/DL Corrected Calcium 9.0 8.5-10.1 MG/DL Total Bilirubin 0.9 0.1-1.0 MG/DL Aspartate Amino Transf (AST/SGOT) 19 5-34 U/L Alanine Aminotransferase (ALT/SGPT) 21 0-55 U/L Alkaline Phosphatase 65 40-136 U/L Troponin I < 0.028 <0.028 NG/ML Total Protein 7.4 6.4-8.2 GM/DL Albumin 4.5 3.2-4.5 GM/DL Glucometer 116 H 70-110 MG/DL Urine Color YELLOW Urine Clarity SL CLOUDY Urine pH 7.0 5-9 Urine Specific [place] 1.025 H 1.016-1.022 Urine Protein NEGATIVE NEGATIVE Urine Glucose (UA) NEGATIVE NEGATIVE Urine Ketones NEGATIVE NEGATIVE Urine Nitrite NEGATIVE NEGATIVE Urine Bilirubin NEGATIVE NEGATIVE Urine Urobilinogen 0.2 < = 1.0 MG/DL Urine Leukocyte Esterase NEGATIVE NEGATIVE Urine RBC (Auto) NEGATIVE NEGATIVE Urine RBC NONE /HPF Urine WBC NONE /HPF Urine Squamous Epithelial Cells RARE /HPF Urine Crystals PRESENT H /LPF Urine Amorphous Sediment MOD KATHY URATES H /LPF Urine Bacteria TRACE /HPF Urine Casts NONE /LPF Urine Mucus NEGATIVE /LPF Urine Culture Indicated NO My Orders Orders - JORDI LOCK Code/Resuscitation (12/01/21 12:52) Cbc With Automated Diff (12/01/21 12:52) Protime With Inr (12/01/21 12:52) Partial Thromboplastin Time (12/01/21 12:52) Comprehensive Metabolic Panel (12/01/21 12:52) Fibrin Degradation Products (12/01/21 12:52) Troponin I [place] (12/01/21 12:52) Ua Culture If Indicated (12/01/21 12:52) Chest 1 View, Ap/Pa Only (12/01/21 12:52) Catheter(Urinary) Insert & Ass 03,15 (12/01/21 12:52) Ekg Tracing (12/01/21 12:52) Nothing By Mouth (12/01/21 Lunch) Accucheck Stat ONCE (12/01/21 12:52) Ed Iv/Invasive Line Start (12/01/21 12:52) Ed Iv/Invasive Line Start (12/01/21 12:52) Vital Signs Stroke Patient Q15M (12/01/21 12:52) Ct Head Wo-R/O Stroke (12/01/21 12:52) O2 (12/01/21 12:52) Intake & Output 06,14,22 (12/01/21 12:52) Monitor-Rhythm Ecg Trace Only (12/01/21 12:52) Dysphagia Screening Tool Q10MX1 (12/01/21 12:52) Post Thrombolytic Adminstratio (12/01/21 12:52) Lipid Panel (12/02/21 06:00) Ct Angio Head/Neck (12/01/21 13:24) Vital Signs Stroke Patient Q15M (12/01/21 13:24) Dysphagia Screening Tool Q10MX1 (12/01/21 13:24) Post Thrombolytic Adminstratio (12/01/21 13:24) Tenecteplase (Tnkase) (12/01/21 13:30) Post Thrombolytic Adminstratio (12/01/21 13:24) Iohexol Injection (Omnipaque 350 Mg/Ml 1 (12/01/21 13:30) Ns (Ivpb) (Sodium Chloride 0.9% Ivpb Bag (12/01/21 13:30) Ed Iv/Invasive Line Start (12/01/21 14:25) Ns Iv 1000 Ml (Sodium Chloride 0.9%) (12/01/21 14:30) Medications Given in ED Current Medications Medications Dose Ordered Sig/Issa Route Start Time Stop Time Status Last Admin Dose Admin Iohexol 100 ml ONCE ONCE IV 12/01/21 13:30 12/01/21 13:31 DC 12/01/21 14:48 75 ML Sodium Chloride 100 ml ONCE ONCE IV 12/01/21 13:30 12/01/21 13:31 DC 12/01/21 14:48 80 ML Tenecteplase 24.75 mg ONCE ONCE IV 12/01/21 13:30 12/01/21 13:31 DC 12/01/21 13:41 24.75 MG Vital Signs/I&O 12/01/21 12/01/21 12/01/21 12:39 12:39 13:41 Temp 37.0 Pulse 76 72 Resp 76 B/P (MAP) 135/78 (97) 114/63 Pulse Ox 95 97 O2 Delivery Room Air Room Air Blood Pressure Mean: 97 FSBG Bedside Testing Finger Stick Blood Glucose: 116 Blood Glucose Action Taken: RN AND PHYSICIAN NOTIFIED Progress Progress Note #1: Time: 13:08 Progress Note Put in a phone call to [facility] to make consultation with neurology. Dr Barrett: 1320: Reasonable to do TPA after discussing RBA of TPA. CT Angio Head and neck. 1325: We discussed the risks, benefits and alternatives and that there would be a 3% or less risk for significant bleeding related to the tPA as well as what would be done next. The patient agreed to this stating that she wants to try and obtain the benefit despite the risk. We are into establishing a second large-bore IV, Mata catheter etc. before giving the TNKase. Progress Note #2: Time: 14:25 Progress Note Unfortunately during the CT angiogram the IV blew and her contrast went subcutaneous rather than IV. We discussed risks, benefits and alternatives to putting another IVN and trying again. Right now the risk of the missed brain lesion might outweigh of a potential kidney injury. Will push for another liter of fluids IV. Progress Note #3: Time: 15:36 Progress Note Repeat NIH one-point for slightly decreased sensation in her tongue and left face. Initial ECG Impression Date: Dec 01, 2021 Initial ECG Impression Time: 12:47 Initial ECG Rate: 74 Initial ECG Rhythm: Normal Sinus Initial ECG Intervals: ND (219) Initial ECG Impression: Normal, Nonspecific Changes Comment Normal sinus rhythm with prolonged ND interval of [address] relevant [address] elevation or depression. Diagnostic Imaging Diagonstic Imaging: Xray Plain Films/CT/US/NM/MRI: chest Comments [facility] [place] [place] NAME: LUCILA BRENNER [facility] REC#: [id number] PT STATUS: REG ER : 1965 PHYSICIAN: JORDI LOCK MD ADMIT DATE: 12/01/21/ER Signed Date of Exam:12/01/21 CHEST 1 VIEW, AP/PA ONLY INDICATION: Chest pain. Stroke. COMPARISON: 07/18/2021. FINDINGS: The lungs appear clear without focal airspace opacities or consolidation. There are no findings of an effusion. There is no evidence of a pneumothorax. Heart size and mediastinal contours appear appropriate. Pulmonary vascularity appears within normal limits. There is no acute or suspicious osseous abnormality demonstrated. The patient is status post a prior cervical ACDF. There is an implantable subcutaneous athletic monitor. IMPRESSION: No radiographic evidence of an acute cardiopulmonary process. Dictated by: Dictated on workstation # [id number] Dict: 12/01/211422 Trans: 12/01/211423 [facility] [id number] Interpreted by: ROSI LONG MD Electronically signed by: ROSI LONG MD 12/01/211423 Reviewed: Reviewed by Me Diagonstic Imaging: CT (Noncontrast) Plain Films/CT/US/NM/MRI: head Comments No intracranial hemorrhage, midline shift, mass-effect or tumors. No calvarial fracture. [facility] [place], [place] NAME: LUCILA BRENNER MED REC#: [id number] PT STATUS: REG ER : 1965 PHYSICIAN: JORDI LOCK MD ADMIT DATE: 12/01/21/ER Signed Date of Exam:12/01/21 CT HEAD WO-R/O STROKE PROCEDURE: CT head wo r/o stroke. TECHNIQUE: Multiple contiguous axial images were obtained through the brain without the use of intravenous contrast. Auto Exposure Controls were utilized during the CT exam to meet ALARA standards for radiation dose reduction. INDICATION: Right-sided weakness. Neurological deficits. Evaluate for stroke. COMPARISON: Pain MRI, 08/01/2021. FINDINGS: CT of the head demonstrates no evidence of an acute intracranial abnormality. There is no evidence of intracranial hemorrhage. There is no extra-axial fluid collection, mass effect or shift. Velazquez and white matter differentiation appear preserved. There is no abnormal hypodensity within the basal ganglia. The ventricles are appropriate in size and configuration. There is no evidence of hydrocephalus. The basilar cisterns are patent. The posterior fossa is unremarkable. There is no evidence of a hyperdense blood vessel. Mastoids and visualized paranasal sinuses appear clear. Orbital contents are unremarkable. There is no calvarial abnormality. IMPRESSION: 1. No CT evidence of an acute intracranial abnormality. 2. No CT evidence of loss of velazquez-white differentiation or hyperdense blood vessel. Findings were called to Dr. Lock at time of dictation. Dictated by: Dictated on workstation # [id number] Dict: 12/01/211309 Trans: 12/01/211312 [facility] [id number] Interpreted by: ROSI LONG MD Electronically signed by: ROSI LONG MD 12/01/21 131 Reviewed: Reviewed by Me, Discussed w/Radiologist Diagonstic Imaging: CT (angio) Plain Films/CT/US/NM/MRI: head (neck) Comments [facility] [place], [place] NAME: LUCILA BRENNER [facility] REC#: [id number] PT STATUS: REG ER : 1965 PHYSICIAN: JORDI LOCK MD ADMIT DATE: 12/01/21/ER Draft Date of Exam:12/01/21 CT ANGIO HEAD/NECK PROCEDURE: CT angiography of the head and CT angiography of the neck with and without contrast. TECHNIQUE: Contiguous noncontrast images were obtained from the skull base through the vertex. After intravenous contrast administration, helical CT angiography of the neck was performed. Source data was reformatted into 3D MIP projections. Delayed post contrast acquisition was also obtained. Auto Exposure Controls were utilized during the CT exam to meet ALARA standards for radiation dose reduction. INDICATION: Altered mental status, follow-up CVA. COMPARISON: Head CT earlier today. DISCUSSION: CT head: No acute intracranial hemorrhage, mass, midline shift, or hydrocephalus. The ventricles and sulci are normal size and configuration for age. The visualized portions of the orbits, paranasal sinuses, mastoid air cells, and calvarium are unremarkable. CTA head: Intracranial arterial luminal enhancement and morphology are normal without focal stenosis, major vessel cut off, aneurysm, or vascular malformation. The [place] is complete. Visualized venous structures are unremarkable. CTA neck: The arch has conventional branch configuration. The vertebral arteries are codominant. The carotid arteries bifurcate midneck without focal stenosis, vessel cut off, or vascular malformation within the neck. The visualized soft tissues are unremarkable. IMPRESSION: 1. Unremarkable CTA of the head and neck. Dictated on workstation # [id number] Dict: 12/01/21 1449 Trans: 12/01/21 1454 [facility] [id number] Interpreted by: KRISTIAN REBOLLEDO MD Electronically signed by: Reviewed: Reviewed by Me Departure Communication (Admissions) Time/Spoke to Admitting Phy: 15:35 Dr. Samaniego agrees to admit the patient inpatient to the ICU s/p TKnase with consult cardiology. She will do queued orders. Time/Spoke to Consulting Phy: 15:36 Dr. Oden, cardiology agrees to consult on the case. Impression Primary Impression: CVA (cerebral vascular accident) Qualified Codes: I63.9 - Cerebral infarction, unspecified Disposition: ADMITTED INPATIENT Condition: Stable Admissions Decision to Admit Reason: Admit from ER (General) Decision to Admit/Date: Dec 01, 2021 Time/Decision to Admit Time: 15:25 Departure-Patient Inst. Referrals: [facility] (PCP) Primary Care Physician ISABELLA UREÑA V DO (Family) Primary Care Physician JORDI LOCK Dec 01, 2021 13:12
--- NOTE | 2021-12-01 13:15 | Diagnostic Imaging Report ---
PROCEDURE: CT head wo r/o stroke. TECHNIQUE: Multiple contiguous axial images were obtained through the brain without the use of intravenous contrast. Auto Exposure Controls were utilized during the CT exam to meet ALARA standards for radiation dose reduction. INDICATION: Right-sided weakness. Neurological deficits. Evaluate for stroke. COMPARISON: Pain MRI, 08/01/2021. FINDINGS: CT of the head demonstrates no evidence of an acute intracranial abnormality. There is no evidence of intracranial hemorrhage. There is no extra-axial fluid collection, mass effect or shift. Velazquez and white matter differentiation appear preserved. There is no abnormal hypodensity within the basal ganglia. The ventricles are appropriate in size and configuration. There is no evidence of hydrocephalus. The basilar cisterns are patent. The posterior fossa is unremarkable. There is no evidence of a hyperdense blood vessel. Mastoids and visualized paranasal sinuses appear clear. Orbital contents are unremarkable. There is no calvarial abnormality. IMPRESSION: 1. No CT evidence of an acute intracranial abnormality. 2. No CT evidence of loss of velazquez-white differentiation or hyperdense blood vessel. Findings were called to Dr. Lock at time of dictation. Dictated by: Dictated on workstation # [id number]
[2021-12-01 13:19] LABS: ALBUMIN 4.5 GM/DL (3.2-4.5); CHLORIDE 103 MMOL/L (98-107); POTASSIUM 4.4 MMOL/L (3.6-5.0); SODIUM 136 MMOL/L (135-145)
[2021-12-01 13:21] LABS: CALCIUM 9.4 MG/DL (8.5-10.1)
[2021-12-01 13:22] LABS: GLUCOSE 103 MG/DL (70-105); TOTAL PROTEIN 7.4 GM/DL (6.4-8.2)
[2021-12-01 13:23] LABS: BILIRUBIN,TOTAL 0.9 MG/DL (0.1-1.0); CARBON DIOXIDE 24 MMOL/L (21-32)
[2021-12-01 13:25] LABS: ALKALINE PHOSPHATASE 65 U/L (40-136); CREATININE SERUM 0.86 MG/DL (0.60-1.30); GFR ESTIMATED 78
[2021-12-01 13:26] LABS: BUN/CREATININE RATIO 16
[2021-12-01 13:28] LABS: ALANINE AMINOTRANSFERASE 21 U/L (0-55)
[2021-12-01] MEDS ORDERED: NS 100 ML (IVPB) BAG IV ONE (13:30)
[2021-12-01] MEDS ORDERED: TENECTEPLASE 50 MG VIAL IV ONE (13:30)
[2021-12-01] MEDS ORDERED: IOHEXOL 350 MG/ML 100 ML (OMNIPAQUE 350) VIAL IV ONE (13:30)
[2021-12-01 13:33] LABS: FIBRIN DEGRADATION PRODUCTS <= 0.27 UG/ML (0.00-0.49); PARTIAL THROMBOPLASTIN TIME 29 SEC (24-35); PROTHROMBIN TIME PATIENT 13.4 SEC (12.2-14.7)
[2021-12-01 13:51] LABS: BILIRUBIN,URINE NEGATIVE (NEGATIVE); CLARITY,URINE SL CLOUDY; COLOR,URINE YELLOW; GLUCOSE, URINE (UA) NEGATIVE (NEGATIVE); KETONES,URINE NEGATIVE (NEGATIVE); LEUKOCYTE ESTERASE ,URINE NEGATIVE (NEGATIVE); NITRITE,URINE NEGATIVE (NEGATIVE); PROTEIN,URINE NEGATIVE (NEGATIVE)
[2021-12-01 14:00] LABS: AMORPHOUS SEDIMENT,UR MOD AMOR URATES /LPF; BACTERIA,URINE TRACE /HPF; SQUAMOUS EPITHELIAL CELL,UR RARE /HPF
--- NOTE | 2021-12-01 14:26 | Diagnostic Imaging Report ---
INDICATION: Chest pain. Stroke. COMPARISON: 07/18/2021. FINDINGS: The lungs appear clear without focal airspace opacities or consolidation. There are no findings of an effusion. There is no evidence of a pneumothorax. Heart size and mediastinal contours appear appropriate. Pulmonary vascularity appears within normal limits. There is no acute or suspicious osseous abnormality demonstrated. The patient is status post a prior cervical ACDF. There is an implantable subcutaneous monitoring manager. IMPRESSION: No radiographic evidence of an acute cardiopulmonary process. Dictated by: Dictated on workstation # [id number]
[2021-12-01] MEDS ORDERED: NS IV 1000 ML 1,000 ML IV SCH (14:30)
--- NOTE | 2021-12-01 14:54 | Diagnostic Imaging Report ---
PROCEDURE: CT angiography of the head and CT angiography of the neck with and without contrast. TECHNIQUE: Contiguous noncontrast images were obtained from the skull base through the vertex. After intravenous contrast administration, helical CT angiography of the neck was performed. Source data was reformatted into 3D MIP projections. Delayed post contrast acquisition was also obtained. Auto Exposure Controls were utilized during the CT exam to meet ALARA standards for radiation dose reduction. INDICATION: Altered mental status, follow-up CVA. COMPARISON: Head CT earlier today. DISCUSSION: CT head: No acute intracranial hemorrhage, mass, midline shift, or hydrocephalus. The ventricles and sulci are normal size and configuration for age. The visualized portions of the orbits, paranasal sinuses, mastoid air cells, and calvarium are unremarkable. CTA head: Intracranial arterial luminal enhancement and morphology are normal without focal stenosis, major vessel cut off, aneurysm, or vascular malformation. The [place] of [place] is complete. Visualized venous structures are unremarkable. CTA neck: The arch has conventional branch configuration. The vertebral arteries are codominant. The carotid arteries bifurcate midneck without focal stenosis, vessel cut off, or vascular malformation within the neck. The visualized soft tissues are unremarkable. IMPRESSION: 1. Unremarkable CTA of the head and neck. Dictated by: Dictated on workstation # [id number]
[2021-12-01] MEDS ORDERED: ONDANSETRON 4 MG (ZOFRAN) ORAL DISSOLVE TAB PO PRN (16:30)
[2021-12-01] MEDS ORDERED: morphine IMMEDIATE RELEASE 15 MG TABLET PO PRN (16:30)
[2021-12-01] MEDS ORDERED: NS IV 500 ML 500 ML IV PRN (16:30)
[2021-12-01] MEDS ORDERED: polyethylene glycoL POWDER 17 GM (MIRALAX) PACK PO PRN (16:30)
[2021-12-01] MEDS ORDERED: ONDANSETRON 4 MG/2 ML (SDV) Z0FRAN IV PRN (16:30)
[2021-12-01] MEDS ORDERED: diphenhydrAMINE 25 MG TAB (BENADRYL) PO PRN ×2 (16:30→20:45)
[2021-12-01] MEDS ORDERED: ANTACID SUSP 30 ML UDC (MYLANTA) PO PRN (16:30)
[2021-12-01] MEDS ORDERED: morphine INJ 4 MG/ML 1 ML (VIAL/SYRINGE) IV PRN (16:30)
[2021-12-01] MEDS ORDERED: CALCIUM CARBONATE 500 MG (TUMS) TAB.CHEW PO PRN (16:30)
[2021-12-01] MEDS ORDERED: diphenhydrAMINE 50 MG/ML INJ (BENADRYL) IVP PRN (16:30)
[2021-12-01] MEDS ORDERED: MILK OF MAGNESIA 400 MG/5 ML 30 ML UDC PO PRN (16:30)
[2021-12-01] MEDS ORDERED: LACTULOSE SYRUP 10GM/15ML (ENULOSE) 30ML UDC PO PRN (16:30)
[2021-12-01] MEDS ORDERED: ACETAMINOPHEN 325 MG TABLET PO PRN ×2 (16:30→20:45)
[2021-12-01] MEDS ORDERED: MELATONIN 3 MG TABLET PO PRN (16:30)
[2021-12-01] MEDS ORDERED: LORazepam 0.5 MG (ATIVAN) TABLET PO PRN (16:30)
[2021-12-01] MEDS ORDERED: BISACODYL 10 MG SUPP (DULCOLAX) PR PRN (16:30)
--- NOTE | 2021-12-01 16:32 | Tele-ICU Progress Note ---
Subjective Date Seen by a Provider: Dec 01, 2021 Time Seen by a Provider: 16:27 Subjective/Events-last exam (Tele-ICU Physician , consultation) Available chart/ vitals / labs / Images reviewed H&P is from ER notes Patient's information available about PMH, allergy reviewed in EMR. ROS as per chart and RN report Video assessment done using teleICU camera, rest of exam as per RN Discussed with RN. She is a 56-year-old old female who is morbidly obese has a history of hypertension and a stroke in May 2021 with the weakness in her right leg and left side of the face. She did not have any facial droop. Today she presented to the emergency room with a complaint of 4 difficulty expressing herself. She is evaluated by neurologist in [place] where telemetry and well cared for to [facility]. Patient received TNKase. Prior to receiving TNKase she had a NIH score of 5 and by the time she left to the emergency room her NIH score is 1 per RN. I have made a video visit and reviewed the patient discussed with the patient. She did have a CT angio of the head and neck which are unremarkable. She is admitted for close monitoring and management in the ICU. Currently she is in no distress. Review of Systems ROS PER RN Sepsis Event Evaluation Height, Weight, BMI Height: '" Weight: lbs. oz. kg; 41.00 BMI Method:Estimated Exam Exam Patient acknowledged, consented, and participated in this virtual visit which was conducted using real time audio/video Vital Signs Date Time Temp Pulse Resp B/P (MAP) Pulse Ox O2 Delivery O2 Flow Rate FiO2 12/01/21 13:41 72 114/63 12/01/21 12:39 37.0 76 76 135/78 (97) 97 Room Air 12/01/21 12:39 95 Room Air Height & Weight Height: '" Weight: lbs. oz. kg; 41.00 BMI Method:Estimated General Appearance: Anxious Capillary Refill: Less Than 3 Seconds Peripheral Pulses: 2+ Radial Pulses (R), 2+ Radial Pulses (L) Gastrointestinal: normal bowel sounds, non tender, soft Other comments PE PER RN Results Lab Laboratory Tests 12/01/21 12:41 Assessment/Plan Assessment/Plan Impression 1 left CVA with right hemiparesis improved with the TNKase significantly but not completely 2. History of hyperlipidemia 3. History of coronary artery disease status post stent placement in the mid LAD 4. Morbid obesity 5. History of scleroderma and celiac disease. Recommendations 1. Permissive hypertension systolic up to 180 today 2. No aspirin or any other antiplatelet agent for the next 24 hours 3. Monitor for any bleeding complications 4. Avoid GM inhibitors for the next 24 hours because of possible angioedema. 5. LDL goal less than 70. 6. Physical therapy and Occupational Therapy as well as speech therapy. 7. Weight reduction strongly suggested. 8. Suggest sleep study as an outpatient. Critical Care: Critically Ill Patient Time spent with patient (mins): 25 CHAUNCEY NGUYEN MD Dec 01, 2021 16:32
[2021-12-01 16:44] VITALS: BP 135/78
[2021-12-01] MEDS ORDERED: ACET325C7 PO (17:19)
[2021-12-01] MEDS ORDERED: DICL100G13 TP (17:19)
[2021-12-01] MEDS ORDERED: OXYM-12 NSEACH (17:19)
[2021-12-01] MEDS ORDERED: MAGN200T8 PO (17:19)
[2021-12-01] MEDS ORDERED: TRZ50T PO (17:19)
--- NOTE | 2021-12-01 17:25 | History & Physical-Hospitalist ---
History of Present Illness HPI/Chief Complaint CC: CVA s/p tPa HPI: This is a 56yoWF known to me from prior hospital stay when cardiac dysfunction was acute who presents to the ICU s/p tPa after was found to have an acute ischemic CVA. Dysarthria and right sided weakness were the presenting signs after she called EMS when she fell outside and could not speak and had right sided weakness. CT brain w/o contrast was normal so give NIH scale and recs from Neuro she was given tPa and had excellent results. Dr Vora is her regular Community Services Manager bu Dr Oden is fisher sponge hooking who will see her for further risk stratification. Carotid USG will be ordered along with ECHO and lipid panel. She is intolerant to Lipitor. She had a loop recorder placed by Dr Vora this summe r so we will try to access that to evaluate if PAF is the source of her CVA since she is compliant with Plavix and ASA at home. Source: patient Exam Limitations: no limitations Date Seen 12/01/21 Time Seen by a Provider: 17:30 Attending Physician [place] PCP Admitting Physician: Wandy Wagner DO Attending Physician: Wandy Wagner DO Referring Physician Date of Admission Dec 01, 2021 at 15:42 Home Medications & Allergies Home Medications Reviewed patient Home Medication Reconciliation performed by pharmacy medication reconciliations water restoration technician and/or nursing. Patients Allergies have been reviewed. Allergies Allergies Coded Allergies nitrofurantoin (Verified Allergy, Severe, 03/02/20) shellfish derived (Verified Allergy, Severe, 03/02/20) atorvastatin (Verified Allergy, Intermediate, 03/02/20) pt states it makes her hurt all over/extreme pain Penicillins (Unverified Allergy, Mild, 06/09/08) Proton Pump Inhibitors (Verified Allergy, Unknown, ANGINA, 02/20/21) codeine (Verified Allergy, Unknown, 03/02/20) Past Witlfid-Gmbwrs-Luicqs Hx Patient Social History Marrital Status: single Employed/Student: unemployed Tobacco Use?: No Smoking Status: Never a Smoker Use of E-Cig and/or Vaping dev: No Substance use?: No Alcohol Use?: No Pt feels they are or have been: No Immunizations Up To Date First/Initial COVID19 Vaccinat: 2020 Second COVID19 Vaccination Tu: 2020 Tetanus Booster (TDap): Unknown Hepatitis A: Yes Hepatitis B: Yes Seasonal Allergies Seasonal Allergies: Yes Current Status status: No Advance Directives: Yes Advance Directive Location: Scanned into EMR Communicates: Verbally Primary Language: Sierra Leonean Preferred Spoken Language: [place] Leonean Is interpretation needed?: No Sensory deficits: Vision impairment Implanted or Applied Medical D: Orthopedic hardware, Stents Past Medical History Surgeries: Cardiac, Coronary Stent, Gallbladder, Orthopedic Asthma, Sleep Apnea Currently Using CPAP: Yes Atrial Fibrillation, Chronic Edema/Swelling, Coronary Artery Disease, Heart Attack, High Cholesterol, Hypertension, Rheumatic Fever 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, 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 History: Menopausal Gall Bladder Disease Rheumatoid Arthritis Hypothyroidsim Anxiety, Depression Psoriasis Blood Disorders: No CAD Family Medical History Alcoholism G8 BROTHER, Onset:15's - 20 Arthritis 19 MOTHER, Onset:Adolescence G8 BROTHER, Onset:Adolescence G8 SISTER, Onset:25's - 30 Asthma G8 BROTHER Cataracts 19 FATHER, Onset:60 years & older Deafness or hearing loss 19 FATHER Dementia 19 FATHER Diabetes mellitus 19 MOTHER G8 BROTHER Hypertension 19 FATHER G8 BROTHER Myocardial infarction 19 FATHER, Onset:60 years & older G8 BROTHER, Onset:40's - 50 Psychosocial problem G8 BROTHER, Onset:25's - 30 Severe allergy 19 FATHER, Onset: 19 MOTHER, Onset:Childhood PAST SURGICAL HISTORY: -CERVICAL SPINE SURGERY -LEFT ELBOW ULNAR NERVE SURGERY -CHOLECYSTECTOMY -CARDIAC CATHS-- -03/02/[address] VORA: CONCLUSIONS: 1. Coronary artery disease primarily consisting of 95% ostial stenosis of a first diagonal of the left anterior descending to which successful balloon angioplasty was carried out with reduced the stenosis to less than 30%. Elsewhere, the patient exhibits mild to moderate diffuse coronary plaques. 2. Normal global left ventricular systolic function with an ejection fraction of approximately 60%. 3. Elevated left ventricular end-diastolic pressure. -HAD STENT X 1 PLACED 06/10/20 AT [facility]. -LAST CARDIAC CATH DONE HERE 06/27/[address] VORA: CONCLUSIONS: 1. Mild coronary artery disease. 2. Patent stent in the mid left anterior descending artery. 3. Normal global left ventricular systolic function with ejection fraction of 55% to 60%. 4. Normal left ventricular end-diastolic pressure. Review of Systems Constitutional: see HPI, dizziness, malaise, weakness EENTM: no symptoms reported Respiratory: no symptoms reported Cardiovascular: no symptoms reported Gastrointestinal: no symptoms reported Genitourinary: no symptoms reported Musculoskeletal: no symptoms reported Skin: no symptoms reported Psychiatric/Neurological: Tingling, Tremors, Weakness All Other Systems Reviewed Negative Unless Noted: Yes Physical Exam Physical Exam Vital Signs Vital Signs - First Documented 12/01/21 12/01/21 12:39 16:44 Temp 37.0 Pulse 76 Resp 76 B/P (MAP) 135/78 (97) Pulse Ox 95 O2 Delivery Room Air FiO2 21 Capillary Refill : Less Than 3 Seconds Height, Weight, BMI Height: '" Weight: lbs. oz. kg; 41.74 BMI Method:Estimated General Appearance: No Apparent Distress, Chronically ill, Obese Eyes: Right Eye Normal Inspection, Right Eye PERRL HEENT: PERRL/EOMI, Normal ENT Inspection, Pharynx Normal, Moist Mucous Membranes Neck: Full Range of Motion, Normal Inspection, Non Tender Respiratory: Chest Non Tender, Lungs Clear, Normal Breath Sounds, No Accessory Muscle Use, No Respiratory Distress Cardiovascular: Regular Rate, Rhythm, No Edema, No Gallop, No JVD, No Murmur, Normal Peripheral Pulses Gastrointestinal: Normal Bowel Sounds, No Organomegaly, No Pulsatile Mass, Non Tender, Soft Back: Normal Inspection, No CVA Tenderness, No Vertebral Tenderness Extremity: Normal Capillary Refill, Normal Inspection, Normal Range of Motion (except right leg strength 3/5), Non Tender, No Calf Tenderness, No Pedal Edema Neurologic/Psychiatric: Alert, Oriented x3, No Motor/Sensory Deficits, Normal Mood/Affect Skin: Normal Color, Warm/Dry Lymphatic: No Adenopathy Results Results/Procedures Labs Laboratory Tests 12/01/21 12:41 Patient resulted labs reviewed. Assessment/Plan Admission Diagnosis Assessment: Acute CVA with dysarthria and right leg weakness s/p tPA now much improved and minimal deficits Suspicion for PAF has loop recorder will need to access monitor CAD previous stents HTN HLP intolerant to Lipitor Plan: tPa protocol CT head in morning Lovenox versus OAC after 24 hours after tPa since suspected PAF Admission Status: Inpatient Order (span 2 midnights) Reason for Inpatient Admission: cva Clinical Quality Measures DVT/VTE Risk/Contraindication: Contraindications-Pharm: Other *list below* Other: tpa Stroke: Date of last known well: Dec 01, 2021 Time of last known well: 11:45 Symptoms onset unknown: Yes WANDY WAGNER DO Dec 01, 2021 17:25
[2021-12-01] MEDS ORDERED: ENOXAPARIN 100 MG/1 ML (LOVENOX) SYR SC SCH (17:30)
[2021-12-01] MEDS ORDERED: RT-ALBUTEROL SULF 2.5 MG/3 ML PRE-MIX VIAL INH PRN ×2 (18:00)
[2021-12-01] MEDS ORDERED: NITROGLYCERIN 0.4 MG SL TABS BTL 25'S SL PRN (18:00)
[2021-12-01] MEDS ORDERED: NON-FORMULARY MEDICATION 1 EA EA (Semaglutide (Ozempic) 1 MG) SQ SCH (18:00)
[2021-12-01] MEDS ORDERED: OXYMETAZOLINE (AFRIN) 0.05% NA 30 ML BTL NS PRN (18:00)
[2021-12-01] MEDS: DOCUSATE SODIUM 100 MG (COLACE) CAP PO SCH (20:42)
[2021-12-01] MEDS: SENNOSIDES 8.6 MG (SENOKOT) TAB PO SCH (20:42)
[2021-12-01] MEDS: ROSUVASTATIN 20 MG (CRESTOR) TABLET PO SCH (20:56)
[2021-12-01] MEDS: traZODone 50 MG (DESYREL) TAB PO SCH (20:57)
[2021-12-01] MEDS: LORATADINE (CLARITIN) 10 MG TAB PO SCH (20:57)
[2021-12-01] MEDS: RANOLAZINE ER 500 MG TAB (RANEXA) PO SCH (20:57)
[2021-12-01] MEDS: eZETimibe 10 MG (ZETIA) TABLET PO SCH (21:41)
[2021-12-02] MEDS: DICLOFENAC 1% GEL 100 GM (VOLTAREN) TUBE TP SCH ×5 (00:29→23:57)
[2021-12-02 05:39] LABS: BASOPHILS % (AUTO) 0 % (0-10); EOSINOPHILS # (AUTO) 0.1 10^3/uL (0.0-0.3); EOSINOPHILS % (AUTO) 1 % (0-10); HEMATOCRIT 39 % (35-52); HEMOGLOBIN 13.4 g/dL (11.5-16.0); LYMPHOCYTES # (AUTO) 1.6 10^3/uL (1.0-4.0); LYMPHOCYTES % (AUTO) 22 % (12-44); MEAN CORPUSCULAR HEMOGLOBIN 32 pg (25-34); MEAN CORPUSCULAR HGB CONC 34 g/dL (32-36); MEAN CORPUSCULAR VOLUME 92 fL (80-99); MONOCYTES # (AUTO) 0.7 10^3/uL (0.0-1.0); MONOCYTES % (AUTO) 9 % (0-12); NEUTROPHILS # (AUTO) 5.1 10^3/uL (1.8-7.8); NEUTROPHILS % (AUTO) 68 % (42-75); PLATELET COUNT 233 10^3/uL (130-400); WHITE BLOOD COUNT 7.5 10^3/uL (4.3-11.0)
[2021-12-02 05:43] LABS: POTASSIUM 4.1 MMOL/L (3.6-5.0)
[2021-12-02 05:44] LABS: ALBUMIN 3.7 GM/DL (3.2-4.5)
[2021-12-02 05:45] LABS: CALCIUM 8.7 MG/DL (8.5-10.1)
[2021-12-02 05:48] LABS: BILIRUBIN,TOTAL 0.6 MG/DL (0.1-1.0)
[2021-12-02 05:49] LABS: PHOSPHORUS 3.5 MG/DL (2.3-4.7)
[2021-12-02 05:50] LABS: CREATININE SERUM 0.74 MG/DL (0.60-1.30)
[2021-12-02] MEDS: POTASSIUM CL 10MEQ/50ML IVPB 50 ML IV SCH (06:10)
[2021-12-02] MEDS: MAGNESIUM 1 GM/100 ML IVPB 100 ML IV SCH (06:10)
[2021-12-02] MEDS: KCL 20 MEQ TAB (K-DUR) PO SCH (06:11)
[2021-12-02] MEDS: LEVOTHYROXINE 50 MCG (LEVOTHROID) TAB PO SCH (06:38)
--- NOTE | 2021-12-02 08:00 | Progress Note - Hospitalist ---
Subjective HPI/CC On Admission Date Seen by Provider: Dec 02, 2021 Time Seen by Provider: 10:00 CC: CVA s/p tPa HPI: This is a 56yoWF known to me from prior hospital stay when cardiac dysfunction was acute who presents to the ICU s/p tPa after was found to have an acute ischemic CVA. Dysarthria and right sided weakness were the presenting signs after she called EMS when she fell outside and could not speak and had right sided weakness. CT brain w/o contrast was normal so give NIH scale and recs from Neuro she was given tPa and had excellent results. Dr Vora is her regular Twister Doffer bu Dr Oden is director of operations for therapy who will see her for further risk stratification. Carotid USG will be ordered along with ECHO and lipid panel. She is intolerant to Lipitor. She had a loop recorder placed by Dr Vora this summer so we will try to access that to evaluate if PAF is the source of her CVA since she is compliant with Plavix and ASA at home. Subjective/Events-last exam Doing well CT repeat 24 hours after tpa was negative Improved overall No pain Weak right leg ECHO today Review of Systems General: Fatigue, Malaise Neurological: Weakness Objective Exam Vital Signs Vital Signs Date Time Temp Pulse Resp B/P (MAP) Pulse Ox O2 Delivery O2 Flow Rate FiO2 12/02/21 18:00 67 22 102/54 (70) 96 Room Air 12/02/21 16:00 36.5 12/01/21 16:44 21 Capillary Refill : Less Than 3 Seconds General Appearance: No Apparent Distress, WD/WN, Chronically ill Respiratory: Lungs Clear, Normal Breath Sounds Cardiovascular: Regular Rate, Rhythm Neurologic/Psychiatric: Alert, Oriented x3, No Motor/Sensory Deficits, Normal Mood/Affect Results/Procedures Lab Laboratory Tests 12/02/21 04:58 Patient resulted labs reviewed. Assessment/Plan Assessment and Plan Assess & Plan/Chief Complaint Assessment: Acute CVA with dysarthria and right leg weakness s/p tPA now much improved and minimal deficits Suspicion for PAF has loop recorder will need to access monitor CAD previous stents HTN HLP intolerant to Lipitor Plan: tPa protocol CT head today Lovenox versus OAC after 24 hours after tPa since suspected PAF Critical Care Critically Ill Patient Clinical Quality Measures DVT/VTE Risk/Contraindication: Contraindications-Pharm: Other *list below* Other: tpa Stroke: Date of last known well: Dec 01, 2021 Time of last known well: 11:45 Symptoms onset unknown: Yes LULU WAGNER DO Dec 02, 2021 08:00
[2021-12-02] MEDS: MULTIVIT W/MINERALS TAB (THERAGRAN M) PO SCH (08:08)
[2021-12-02] MEDS: DOCUSATE SODIUM 100 MG (COLACE) CAP PO SCH ×2 (08:08→20:30)
[2021-12-02] MEDS: RANOLAZINE ER 500 MG TAB (RANEXA) PO SCH ×2 (08:08→20:30)
[2021-12-02] MEDS: SENNOSIDES 8.6 MG (SENOKOT) TAB PO SCH ×2 (08:08→20:30)
[2021-12-02] MEDS: MAGNESIUM OXIDE (MAG-OX)400 MG TAB PO SCH ×2 (08:08→17:08)
[2021-12-02] MEDS: FLUTICASONE NASAL SPRAY (FLONASE) 16 GM BTL NS SCH (09:00)
--- NOTE | 2021-12-02 09:34 | Consultation-Cardiology ---
HPI-Cardiology Cardiology Consultation Date of Consultation 12/02/21 Date of Admission Time Seen by Provider: 09:29 Indication: Acute CVA HPI 56-year-old lady with a history of coronary artery disease, history of TIA in the past. Suffered acute stroke with left facial droop and right-sided weakness. CT of the head did not show any acute abnormality, patient received tPA and reported significant improvement. Still have minimal weakness in her right side. No chest pain. Reporting occasional episodes of palpitation and had a loop monitor implanted by Dr. Vora. She denied any chest pain, no shortness of breath. No syncope or near syncopal episodes. Home Medications & Allergies Allergies: Coded Allergies: nitrofurantoin (Verified Allergy, Severe, 03/02/20) shellfish derived (Verified Allergy, Severe, 03/02/20) atorvastatin (Verified Allergy, Intermediate, 03/02/20) pt states it makes her hurt all over/extreme pain Penicillins (Unverified Allergy, Mild, 06/09/08) Proton Pump Inhibitors (Verified Allergy, Unknown, ANGINA, 02/20/21) codeine (Verified Allergy, Unknown, 03/02/20) Home Medication List Reviewed: Yes XSA-Oddacm-Auighe Hx Patient Social History Marital Status: single Employed/Student: unemployed Smoking Status: Never a Smoker 2nd Hand Smoke Exposure: Yes Recent Hopitalizations: No Have you traveled recently?: No Alcohol Use?: No Immunizations Up To Date Tetanus Booster (TDap): Unknown Past Medical History Discussed below Family Medical History Family History: Alcoholism G8 BROTHER, Onset:15's - 20 Arthritis 19 MOTHER, Onset:Adolescence G8 BROTHER, Onset:Adolescence G8 SISTER, Onset:25's - 30 Asthma G8 BROTHER Cataracts 19 FATHER, Onset:60 years & older Deafness or hearing loss 19 FATHER Dementia 19 FATHER Diabetes mellitus 19 MOTHER G8 BROTHER Hypertension 19 FATHER G8 BROTHER Myocardial infarction 19 FATHER, Onset:60 years & older G8 BROTHER, Onset:40's - 50 Psychosocial problem G8 BROTHER, Onset:25's - 30 Severe allergy 19 FATHER, Onset:[place] 19 MOTHER, Onset:Childhood Review of Systems-General Review of Systems Constitutional: see HPI, malaise, weakness EENTM: see HPI, no symptoms reported Respiratory: see HPI; No cough, No dyspnea on exertion, No hemoptysis, No orthopnea, No phlegm, No short of breath, No stridor, No wheezing, No other Cardiovascular: see HPI; No chest pain, No edema, No Hx of Intervention; palpitations; No syncope, No vascular heart diseas, No other Gastrointestinal: no symptoms reported, see HPI Genitourinary: no symptoms reported, see HPI Musculoskeletal: no symptoms reported, see HPI Skin: no symptoms reported, see HPI Psychiatric/Neurological: See HPI, Tingling, Tremors, Weakness All Other Systems Reviewed Negative Unless Noted: Yes Reviewed Test Results Reviewed Test Results Lab Laboratory Tests Test 12/01/21 12:41 12/01/21 12:46 12/01/21 13:43 12/02/21 04:58 Range/Units White Blood Count 8.3 7.5 4.3-11.0 10^3/uL Red Blood Count 4.74 4.23 3.80-5.11 10^6/uL Hemoglobin 15.3 13.4 11.5-16.0 g/dL Hematocrit 43 39 35-52 % Mean Corpuscular Volume 90 92 80-99 fL Mean Corpuscular Hemoglobin 32 32 25-34 pg Mean Corpuscular Hemoglobin Concent 36 34 32-36 g/dL Red Cell Distribution Width 12.3 12.6 10.0-14.5 % Platelet Count 276 233 130-400 10^3/uL Mean Platelet Volume 9.2 9.0 9.0-12.2 fL Immature Granulocyte % (Auto) 1 0 % Neutrophils (%) (Auto) 70 68 42-75 % Lymphocytes (%) (Auto) 18 22 12-44 % Monocytes (%) (Auto) 10 9 0-12 % Eosinophils (%) (Auto) 1 1 0-10 % Basophils (%) (Auto) 0 0 0-10 % Neutrophils # (Auto) 5.8 5.1 1.8-7.8 10^3/uL Lymphocytes # (Auto) 1.5 1.6 1.0-4.0 10^3/uL Monocytes # (Auto) 0.8 0.7 0.0-1.0 10^3/uL Eosinophils # (Auto) 0.1 0.1 0.0-0.3 10^3/uL Basophils # (Auto) 0.0 0.0 0.0-0.1 10^3/uL Immature Granulocyte # (Auto) 0.0 0.0 0.0-0.1 10^3/uL Percent Immature Platelet Fraction 1.5 0.0-7.6 % Prothrombin Time 13.4 12.2-14.7 SEC INR Comment 1.0 0.8-1.4 Activated Partial Thromboplast Time 29 24-35 SEC D-Dimer <= 0.27 0.00-0.49 UG/ML Sodium Level 136 136 135-145 MMOL/L Potassium Level 4.4 4.1 3.6-5.0 MMOL/L Chloride Level 103 108 H 98-107 MMOL/L Carbon Dioxide Level 24 22 21-32 MMOL/L Anion Gap 9 6 5-14 MMOL/L Blood Urea Nitrogen 14 9 7-18 MG/DL Creatinine 0.86 0.74 0.60-1.30 MG/DL Estimat Glomerular Filtration Rate 78 94 BUN/Creatinine Ratio 16 12 Glucose Level 103 102 70-105 MG/DL Calcium Level 9.4 8.7 8.5-10.1 MG/DL Corrected Calcium 9.0 8.9 8.5-10.1 MG/DL Total Bilirubin 0.9 0.6 0.1-1.0 MG/DL Aspartate Amino Transf (AST/SGOT) 19 16 5-34 U/L Alanine Aminotransferase (ALT/SGPT) 21 17 0-55 U/L Alkaline Phosphatase 65 54 40-136 U/L Troponin I < 0.028 <0.028 NG/ML Total Protein 7.4 6.0 L 6.4-8.2 GM/DL Albumin 4.5 3.7 3.2-4.5 GM/DL Glucometer 116 H 70-110 MG/DL Urine Color YELLOW Urine Clarity SL CLOUDY Urine pH 7.0 5-9 Urine Specific [place] 1.025 H 1.016-1.022 Urine Protein NEGATIVE NEGATIVE Urine Glucose (UA) NEGATIVE NEGATIVE Urine Ketones NEGATIVE NEGATIVE Urine Nitrite NEGATIVE NEGATIVE Urine Bilirubin NEGATIVE NEGATIVE Urine Urobilinogen 0.2 < = 1.0 MG/DL Urine Leukocyte Esterase NEGATIVE NEGATIVE Urine RBC (Auto) NEGATIVE NEGATIVE Urine RBC NONE /HPF Urine WBC NONE /HPF Urine Squamous Epithelial Cells RARE /HPF Urine Crystals PRESENT H /LPF Urine Amorphous Sediment MOD KATHY URATES H /LPF Urine Bacteria TRACE /HPF Urine Casts NONE /LPF Urine Mucus NEGATIVE /LPF Urine Culture Indicated NO Phosphorus Level 3.5 2.3-4.7 MG/DL Magnesium Level 2.0 1.6-2.4 MG/DL Triglycerides Level 85 <150 MG/DL Cholesterol Level 117 < 200 MG/DL LDL Cholesterol Direct 58 1-129 MG/DL VLDL Cholesterol 17 5-40 MG/DL HDL Cholesterol 41 40-60 MG/DL Physical Exam Physical Exam Vital Signs Vital Signs - First Documented 12/01/21 12/01/21 12:39 16:44 Temp 37.0 Pulse 76 Resp 76 B/P (MAP) 135/78 (97) Pulse Ox 95 O2 Delivery Room Air FiO2 21 Capillary Refill : Less Than 3 Seconds Height, Weight, BMI Height: '" Weight: lbs. oz. kg; 46.71 BMI Method:Estimated General Appearance: No Apparent Distress, Chronically ill, Obese Eyes: Right Eye Normal Inspection, Right Eye PERRL HEENT: PERRL/EOMI, Normal ENT Inspection, Pharynx Normal, Moist Mucous Membranes Neck: Full Range of Motion, Normal Inspection, Non Tender Respiratory: Chest Non Tender, Lungs Clear, Normal Breath Sounds, No Accessory Muscle Use, No Respiratory Distress Cardiovascular: Regular Rate, Rhythm, No Edema, No Gallop, No JVD, No Murmur, Normal Peripheral Pulses Gastrointestinal: Normal Bowel Sounds, No Organomegaly, No Pulsatile Mass, Non Tender, Soft Back: Normal Inspection, No CVA Tenderness, No Vertebral Tenderness Extremity: Normal Capillary Refill, Normal Inspection, Normal Range of Motion (except right leg strength 3/5), Non Tender, No Calf Tenderness, No Pedal Edema Neurologic/Psychiatric: Alert, Oriented x3, No Motor/Sensory Deficits, Normal Mood/Affect Skin: Normal Color, Warm/Dry Lymphatic: No Adenopathy A/P-Cardiology Admission Diagnosis Acute CVA Palpitation Coronary artery disease Hypertension Hyperlipidemia Assessment/Plan Acute CVA, status post tPA treatment Significant improvement in her symptoms, still have minimal residual right side weakness. History of recurrent palpitation, had a loop monitor implanted by Dr. Vora on August 21, 2021 Will interrogate her device. Coronary artery disease, Cardiac catheterization done in February 2020 with 95% stenosis in the ostial LAD with balloon angioplasty done. Cardiac catheterization April 2020 95% stenosis to the proximal LAD with successful balloon angioplasty Cardiac catheterization June 2020 showing severe LAD stenosis transferred to [facility], had intervention with stenting to the LAD on June 10, [address] 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 Cardiac catheterization December [address] Scott at [facility] patent stent in the LAD with mid LAD 80% stenosis small vessel not amendable to intervention. 50% stenosis in the proximal first diagonal artery. Cardiac catheterization in January 2021 showing patent proximal LAD stent with distal moderate LAD disease. Hypertension, restart home medication monitor blood pressure Hyperlipidemia, maintained on statin Carotid stenosis, minimal plaque by ultrasound at Dr. 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 History of allergy to shellfish Family history of coronary artery disease History of dizziness and vertigo Clinical Quality Measures DVT/VTE Risk/Contraindication: Contraindications-Pharm: Other *list below* Other: tpa Stroke: Date of last known well: Dec 01, 2021 Time of last known well: 11:45 Symptoms onset unknown: Yes ELIZABETH CHERRY MD Dec 02, 2021 09:34
[2021-12-02] MEDS ORDERED: ISOSORBIDE MONONITRATE 30 MG (IMDUR) TAB PO SCH (15:00)
[2021-12-02] MEDS ORDERED: ENOXAPARIN 150 MG/ML (LOVENOX) SYR SQ SCH (15:00)
--- NOTE | 2021-12-02 15:44 | Diagnostic Imaging Report ---
PROCEDURE: CT head without contrast. TECHNIQUE: Multiple contiguous axial images were obtained through the brain without the use of intravenous contrast. Auto Exposure Controls were utilized during the CT exam to meet ALARA standards for radiation dose reduction. INDICATION: 24-hour follow-up after TPA. COMPARISON: CT angiogram head and neck from the previous day. FINDINGS: There is no CT finding of intracranial hemorrhage. There is no intracranial mass effect or shift. There is no evidence of loss of lehman-white differentiation or vasogenic edema. There is no infarct identified. There is no hydrocephalus. There is no extra-axial collection. The basilar cisterns are patent. Mastoid air cells are clear. The visualized paranasal sinuses are clear. The orbital contents are unremarkable. There is no acute calvarial abnormality. IMPRESSION: 1. No CT evidence of an acute intracranial abnormality. 2. No finding of hemorrhage. 3. No identified infarct. Dictated by: Dictated on workstation # [id number]
[2021-12-02] MEDS: meTOproloL SUCCINATE 50 MG (TOPROL XL) TAB PO SCH (16:18)
[2021-12-02] MEDS: amLODIPine 2.5MG (NORVASC) TAB PO SCH (16:18)
[2021-12-02] MEDS: ENOXAPARIN 100 MG/1 ML (LOVENOX) SYR SC SCH ×2 (16:34→17:09)
[2021-12-02] MEDS: LORATADINE (CLARITIN) 10 MG TAB PO SCH (20:29)
[2021-12-02] MEDS: ROSUVASTATIN 20 MG (CRESTOR) TABLET PO SCH (20:30)
[2021-12-02] MEDS: traZODone 50 MG (DESYREL) TAB PO SCH (20:30)
[2021-12-02] MEDS: eZETimibe 10 MG (ZETIA) TABLET PO SCH (20:32)
[2021-12-02] MEDS ORDERED: NITROGLYCERIN 0.1 MG/PATCH (NITRO-DUR) TD ONE (22:30)
[2021-12-02] MEDS ORDERED: NITROGLYCERIN 0.4 MG SL TABS BTL 25'S SL PRN (22:30)
[2021-12-03 05:05] LABS: BASOPHILS % (AUTO) 0 % (0-10); EOSINOPHILS # (AUTO) 0.1 10^3/uL (0.0-0.3); EOSINOPHILS % (AUTO) 2 % (0-10); HEMATOCRIT 39 % (35-52); HEMOGLOBIN 13.6 g/dL (11.5-16.0); LYMPHOCYTES # (AUTO) 1.7 10^3/uL (1.0-4.0); LYMPHOCYTES % (AUTO) 23 % (12-44); MEAN CORPUSCULAR HEMOGLOBIN 32 pg (25-34); MEAN CORPUSCULAR HGB CONC 35 g/dL (32-36); MEAN CORPUSCULAR VOLUME 93 fL (80-99); MEAN PLATELET VOLUME 8.9 fL (9.0-12.2); MONOCYTES # (AUTO) 0.7 10^3/uL (0.0-1.0); MONOCYTES % (AUTO) 10 % (0-12); NEUTROPHILS # (AUTO) 4.7 10^3/uL (1.8-7.8); NEUTROPHILS % (AUTO) 65 % (42-75); PLATELET COUNT 213 10^3/uL (130-400); WHITE BLOOD COUNT 7.3 10^3/uL (4.3-11.0)
[2021-12-03 05:17] LABS: ALBUMIN 3.6 GM/DL (3.2-4.5); CHLORIDE 105 MMOL/L (98-107); POTASSIUM 3.9 MMOL/L (3.6-5.0); SODIUM 136 MMOL/L (135-145)
[2021-12-03 05:18] LABS: CALCIUM 8.6 MG/DL (8.5-10.1)
[2021-12-03 05:20] LABS: GLUCOSE 102 MG/DL (70-105); TOTAL PROTEIN 5.9 GM/DL (6.4-8.2)
[2021-12-03 05:21] LABS: BILIRUBIN,TOTAL 0.7 MG/DL (0.1-1.0); CARBON DIOXIDE 22 MMOL/L (21-32)
[2021-12-03 05:23] LABS: ALKALINE PHOSPHATASE 61 U/L (40-136); CREATININE SERUM 0.75 MG/DL (0.60-1.30); GFR ESTIMATED 92; PHOSPHORUS 4.4 MG/DL (2.3-4.7)
[2021-12-03 05:24] LABS: BUN/CREATININE RATIO 16
[2021-12-03 05:26] LABS: ALANINE AMINOTRANSFERASE 17 U/L (0-55); MAGNESIUM 2.1 MG/DL (1.6-2.4)
[2021-12-03] MEDS: POTASSIUM CL 10MEQ/50ML IVPB 50 ML IV SCH (06:18)
[2021-12-03] MEDS: MAGNESIUM 1 GM/100 ML IVPB 100 ML IV SCH (06:18)
[2021-12-03] MEDS: KCL 20 MEQ TAB (K-DUR) PO SCH (06:18)
[2021-12-03] MEDS: LEVOTHYROXINE 50 MCG (LEVOTHROID) TAB PO SCH (06:41)
[2021-12-03] MEDS: DICLOFENAC 1% GEL 100 GM (VOLTAREN) TUBE TP SCH (06:41)
--- NOTE | 2021-12-03 08:04 | Progress Note - Cardiology ---
Cardiology SOAP Progress Note Subjective: Sitting up in bed No c/o CP, SOB or palpitations Reports right sided weakness in the upper and lower extremity are unchanged No c/o n/v/d Objective: I&O/Vital Signs 12/03/21 12/03/21 12/03/21 12/03/21 03:00 03:56 04:00 04:00 Temp 36.5 Pulse 65 67 Resp 16 15 B/P (MAP) 97/67 (80) 98/67 (81) Pulse Ox 93 93 O2 Delivery Room Air Room Air Room Air 12/03/21 12/03/21 12/03/21 12/03/21 05:00 06:00 07:00 07:28 Pulse 66 70 67 67 Resp 17 16 15 B/P (MAP) 99/69 (83) 113/76 (89) 121/80 (94) Pulse Ox 92 94 95 O2 Delivery Room Air Room Air Room Air 12/03/21 12/03/21 12/03/21 12/03/21 08:00 08:00 08:00 09:00 Temp 36.5 Pulse 73 70 Resp 17 22 B/P (MAP) 118/67 (84) 101/36 (57) Pulse Ox 93 91 O2 Delivery Room Air Room Air Room Air 12/03/21 10:00 Pulse 66 Resp 17 B/P (MAP) 106/60 (75) Pulse Ox 94 O2 Delivery Room Air 12/03/21 00:00 Intake Total 1400 ml Output Total 1075 ml Balance 325 ml Constitutional: AAO x 3, well-developed, well-nourished Respiratory: accessory muscle use; No respiratory distress; chest expansion is symmetric, chest is bilaterally symmetric, lungs clear to auscultation Cardiovascular: regular rate-rhythm; No JVD; S1 and S2 Gastrointestional: No tender; soft, round, audible bowel sounds Extremities: no lower extremity edema bilateral Neurologic/Psychiatric: grossly intact (moves all extremities; 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) Skin: No rash on exposed areas, No ulcerations on exposed areas Results/Procedures: Labs Laboratory Tests 12/03/21 04:45: White Blood Count 7.3, Red Blood Count 4.20, Hemoglobin 13.6, Hematocrit 39, Mean Corpuscular Volume 93, Mean Corpuscular Hemoglobin 32, Mean Corpuscular Hemoglobin Concent 35, Red Cell Distribution Width 12.5, Platelet Count 213, Nguyen n Platelet Volume 8.9L, Immature Granulocyte % (Auto) 0, Neutrophils (%) (Auto) 65, Lymphocytes (%) (Auto) 23, Monocytes (%) (Auto) 10, Eosinophils (%) (Auto) 2, Basophils (%) (Auto) 0, Neutrophils # (Auto) 4.7, Lymphocytes # (Auto) 1.7, Monocytes # (Auto) 0.7, Eosinophils # (Auto) 0.1, Basophils # (Auto) 0.0, Immature Granulocyte # (Auto) 0.0, Sodium Level 136, Potassium Level 3.9, Chloride Level 105, Carbon Dioxide Level 22, Anion Gap 9, Blood Urea Nitrogen 12, Creatinine 0.75, Estimat Glomerular Filtration Rate 92, BUN/Creatinine Ratio 16, Glucose Level 102, Calcium Level 8.6, Corrected Calcium 8.9, Phosphorus Level 4.4, Magnesium Level 2.1, Total Bilirubin 0.7, Aspartate Amino Transf (AST/SGOT) 15, Alanine Aminotransferase (ALT/SGPT) 17, Alkaline Phosphatase 61, Troponin I < 0.028, Total Protein 5.9L, Albumin 3.6 Microbiology 12/01/21 MRSA Screen - Final, Complete MRSA not isolated A/P: Assessment: CVA - management per stroke team - post status post tPA treatment - She reports still have minimal residual right side weakness (per nurse she reported that her right sided weakness is back to baseline from prior to this event) Palpitations - . 24 HR Holter of 08-10-21 showed NSR with av HR 65 bpm. Frequent PVC (PVC burden 0.7%). No VT or SVT or signif trupti - S/P ILR implant on 08-21-21: NSR with isolated PVCs - recent ILR download 12-03-21 shows no evidence of a-fib/flutter - SR with freq PVC's [place] - Sleep study of 08-13-21 showed mild [place] - following with Dr. Mcneil CAD - Card cath and PCI on 03/02/20: Coronary artery disease primarily consisting of 95% ostial stenosis of the left anterior descending to just past origin of large D1 to which successful balloon angioplasty was carried out with reduced the stenosis to less than 30%. Mild plaque in other cors. RCA dominant - Echocardiogram of 03-02-20 showed LVEF 60-65%. PASP 20-25 mmHg - Card cath and PCI on 04/21/20: PTCA for 95% restenosis at site of PTCA in mid LAD, just past D1, reducing the lesion to less than 10% and with normal antegrade flow, LVEDP 12 mmHg, LVEF 50-55% - Cardiac cath on 06-08-[address] Oden: Severe LAD stenosis, transferred to [facility] - Reports cardiac cath with PCI on 06-10-[address] 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 Gomez at [facility] in [place], [place]: showed LAD patent stent in the prox LAD, in the mid LAD there is an 80% stenosis in small vessel not amenable to intervention. Approx 50% stenosis in the prox first diag. LVEF 675%. Medical tx was advised. 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 The vertebral arteries are codominant. The carotid arteries bifurcate midneck without focal stenosis, vessel cut off, or vascular malformation within the neck. The visualized soft tissues are unremarkable. HTN - controlled Scleroderma, - by history - managed by PCP Celiac dz - managed by PCP HLD - statin tx - followed by PCP H/o occular stroke Medication Intolerance/allergy - Reported allergy to ASA (however, she has been taking ASA, per her report, without difficulty) - reports h/o convulsions - Reported shellfish allergy Orthopedic - H/O chronic joint pain d/t arthritis Family h/o - premature CAD (brothers x2 and father) Dizziness and vertigo - managed by pcp Plan: ILR transmissions reviewed this morning via [facility] - transmissions have not shown any a-fib/flutter - NSR with PVC's Continue current medication regimen Management of stroke is per stroke team Monitor lab Replace electrolytes as indicated Further recs will be based on her hospital course We have reviewed Dr. Oden's notes from the weekend Clinical Quality Measures Stroke: Date of last known well: Dec 01, 2021 Time of last known well: 11:45 Symptoms onset unknown: Yes GERARD NOLASCO Dec 03, 2021 08:04
[2021-12-03] MEDS: meTOproloL SUCCINATE 50 MG (TOPROL XL) TAB PO SCH (08:14)
[2021-12-03] MEDS: MAGNESIUM OXIDE (MAG-OX)400 MG TAB PO SCH (08:14)
[2021-12-03] MEDS: MULTIVIT W/MINERALS TAB (THERAGRAN M) PO SCH (08:14)
[2021-12-03] MEDS: SENNOSIDES 8.6 MG (SENOKOT) TAB PO SCH (08:15)
[2021-12-03] MEDS: DOCUSATE SODIUM 100 MG (COLACE) CAP PO SCH (08:15)
[2021-12-03] MEDS: RANOLAZINE ER 500 MG TAB (RANEXA) PO SCH (08:15)
[2021-12-03] MEDS: FLUTICASONE NASAL SPRAY (FLONASE) 16 GM BTL NS SCH (08:15)
--- NOTE | 2021-12-03 08:31 | Tele-ICU Progress Note ---
Subjective Date Seen by a Provider: Dec 03, 2021 Time Seen by a Provider: 08:27 Subjective/Events-last exam 56 yo F with new onset right sided weakness, received TNK-still has a little weakness in RUE but this is baseline, NIH score 0, can move all 4 extremties, speech is ok, not garbled On admission CTA head and neck were ok On RA with no resp distress PMH sclerodema, celiac disease, HTL, HTN, CAD with PCE LAD in 06/22 Sepsis Event Evaluation Height, Weight, BMI Height: '" Weight: lbs. oz. kg; 47.26 BMI Method:Estimated Exam Exam Patient acknowledged, consented, and participated in this virtual visit which was conducted using real time audio/video Vital Signs Date Time Temp Pulse Resp B/P (MAP) Pulse Ox O2 Delivery O2 Flow Rate FiO2 12/03/21 08:00 73 17 118/67 (84) 93 Room Air 12/03/21 08:00 36.5 12/03/21 07:28 67 12/03/21 07:00 67 15 121/80 (94) 95 Room Air 12/03/21 06:00 70 16 113/76 (89) 94 Room Air 12/03/21 05:00 66 17 99/69 (83) 92 Room Air 12/03/21 04:00 Room Air 12/03/21 04:00 67 15 98/67 (81) 93 Room Air 12/03/21 03:56 36.5 12/03/21 03:00 65 16 97/67 (80) 93 Room Air 12/03/21 02:00 69 16 116/71 (81) 94 Room Air 12/03/21 01:00 73 12/03/21 01:00 73 18 119/75 (87) 92 Room Air 12/03/21 00:05 36.2 12/03/21 00:00 67 12 117/67 (83) 96 Room Air 12/02/21 23:59 Room Air 12/02/21 23:00 73 15 98/57 (73) 91 Room Air 12/02/21 22:00 71 12 109/68 (80) 95 Room Air 12/02/21 21:00 72 11 103/61 (77) 89 Room Air 12/02/21 20:16 Room Air 12/02/21 20:15 83 11 107/47 (77) 97 Room Air 12/02/21 20:00 36.9 12/02/21 19:37 94 Room Air 12/02/21 19:15 73 10 98/61 (80) 94 Room Air 12/02/21 19:00 71 12/02/21 18:00 67 22 102/54 (70) 96 Room Air 12/02/21 17:00 66 21 97/45 (62) 95 Room Air 12/02/21 16:00 36.5 12/02/21 16:00 64 14 102/66 (78) 94 Room Air 12/02/21 16:00 Room Air 12/02/21 15:00 66 17 90/47 (61) 98 Room Air 12/02/21 14:00 68 17 96/60 (72) 93 Room Air 12/02/21 13:00 69 19 99/52 (68) 93 Room Air 12/02/21 12:37 67 12/02/21 12:00 68 17 97/61 (73) 95 Room Air 12/02/21 12:00 36.4 12/02/21 12:00 Room Air 12/02/21 11:00 63 16 103/55 (71) 95 Room Air 12/02/21 10:00 65 17 104/51 (68) 94 Room Air 12/02/21 09:00 66 21 99/57 (71) 95 Room Air I & O 12/03/21 07:00 Intake Total 2250 ml Output Total 2575 ml Balance -325 ml Height & Weight Height: '" Weight: lbs. oz. kg; 47.26 BMI Method:Estimated General Appearance: No Apparent Distress, WD/WN, Chronically ill HEENT: PERRL/EOMI, Normal ENT Inspection, Pharynx Normal, Moist Mucous Membranes Neck: Full Range of Motion, Normal Inspection, Non Tender Respiratory: Lungs Clear, Normal Breath Sounds Cardiovascular: Regular Rate, Rhythm Capillary Refill: Less Than 3 Seconds Peripheral Pulses: 2+ Radial Pulses (R), 2+ Radial Pulses (L) Gastrointestinal: normal bowel sounds, non tender, soft Extremity: Normal Capillary Refill, Normal Inspection, Normal Range of Motion ( except right leg strength 3/5), Non Tender, No Calf Tenderness, No Pedal Edema Neurologic/Psychiatric: Alert, Oriented x3 (RLE about 3/4, RLE 4/4, RUE 4/4, LUE 4/4), No Motor/Sensory Deficits, Normal Mood/Affect Skin: Normal Color, Warm/Dry Lymphatic: No Adenopathy Results Lab Laboratory Tests 12/01/21 12:41 12/02/21 04:58 12/03/21 04:45 Assessment/Plan Assessment/Plan Doing well, no sign of ICB, Neuro exam is good, passed swallow exam, to get PT and OT BP ok, Critical Care: Critically Ill Patient Time spent with patient (mins): 30 RAYSA LUNA MD Dec 03, 2021 08:31
--- NOTE | 2021-12-03 09:09 | Speech Therapy Progress Note ---
Therapy Progress Note Speech pathology received the consultation for the patient, reviewed the chart, and presented to the patient's room. At this time, the patient reports tolerance of a regular diet with thin liquids. Additionally, the patient reported a return to baseline speech, language, and cognitive function (with an absence of dysarthria). As the patient has returned to baseline function and does not report concerns at this time, ST is not warranted. Please re-consult ST if luis fernando ropriate. ANCA LOVE Dec 03, 2021 09:09
--- NOTE | 2021-12-03 09:46 | Discharge Summary ---
Diagnosis/Chief Complaint Date of Admission Dec 01, 2021 at 15:42 Date of Discharge Discharge Date: Dec 03, 2021 Discharge Diagnosis Assessment: Acute CVA with dysarthria and right leg weakness s/p tPA now much improved and minimal deficits but still right-sided weakness requiring inpatient rehab Suspicion for PAF has loop recorder will need to access monitor CAD previous stents HTN HLP intolerant to Lipitor Plan: tPa protocol CT head today Lovenox versus OAC after 24 hours after tPa since suspected PAF Discharge Summary Discharge Physical Examination Allergies: Coded Allergies: nitrofurantoin (Verified Allergy, Severe, 03/02/20) shellfish derived (Verified Allergy, Severe, 03/02/20) atorvastatin (Verified Allergy, Intermediate, 03/02/20) pt states it makes her hurt all over/extreme pain Penicillins (Unverified Allergy, Mild, 06/09/08) Proton Pump Inhibitors (Verified Allergy, Unknown, ANGINA, 02/20/21) codeine (Verified Adverse Reaction, Mild, 12/03/21) Night terrors, psych response Vitals & I&Os Vital Signs Date Time Temp Pulse Resp B/P (MAP) Pulse Ox O2 Delivery O2 Flow Rate FiO2 12/03/21 10:00 66 17 106/60 (75) 94 Room Air 12/03/21 08:00 36.5 12/01/21 16:44 21 General Appearance: Alert, Oriented X3, Cooperative Respiratory: Clear to Auscultation Cardiovascular: Regular Rate Psych/Mental Status: Mental Status NL Hospital Course Was the Problem List Reviewed?: Yes Ms. Anjelica Garcia is a 56 y/o F with PMH of CVA in 05/2021, CAD s/p JACQUELINE, HTN, HLD, and scleroderma who presented to the hospital on 12/01/21 with new onset dysarthria and right sided weakness after she had fallen that day. She had a CT brain w/out contrast which showed no acute hemorrhage, thus indicating this to be an acute ischemic stroke. [facility] was consulted and she was administered tPA following the protocol. She had improvement in her symptoms and is only still experiencing some mild right sided weakness in her arm and leg. Repeat CT of the head showed no acute intracranial abnormality and no hemorrhage. CTA showed unremarkable CTA of the head and neck. She had an ECHO performed which showed LVEF 55-60% and PASP WNL and did not appear to have a bubble study performed. She had a loop recorder implanted after her stroke in May which was interrogated and showed no atrial fibrillation, but did show some PVCs. Her lipid panel was within goal for stroke risk stratification. She is currently on lovenox for anticoagulation. She is being transferred to inpatient rehab to work on improving her strength. The cause of her stroke is still currently unknown and she may require a coagulopathy workup as an outpatient. [facility] (last 24 hrs) Laboratory Tests 12/01/21 12:41: White Blood Count 8.3, Red Blood Count 4.74, Hemoglobin 15.3, Hematocrit 43, Mean Corpuscular Volume 90, Mean Corpuscular Hemoglobin 32, Mean Corpuscular Hemoglobin Concent 36, Red Cell Distribution Width 12.3, Platelet Count 276, Mean Platelet Volume 9.2, Immature Granulocyte % (Auto) 1, Neutrophils (%) (Auto) 70, Lymphocytes (%) (Auto) 18, Monocytes (%) (Auto) 10, Eosinophils (%) (Auto) 1, Basophils (%) (Auto) 0, Neutrophils # (Auto) 5.8, Lymphocytes # (Auto) 1.5, Monocytes # (Auto) 0.8, Eosinophils # (Auto) 0.1, Basophils # (Auto) 0.0, Immature Granulocyte # (Auto) 0.0, Percent Immature Platelet Fraction 1.5, Prothrombin Time 13.4, INR Comment 1.0, Activated Partial Thromboplast Time 29, D-Dimer <= 0.27, Sodium Level 136, Potassium Level 4.4, Chloride Level 103, Carbon Dioxide Level 24, Anion Gap 9, Blood Urea Nitrogen 14, Creatinine 0.86, Estimat Glomerular Filtration Rate 78, BUN/Creatinine Ratio 16, Glucose Level 103, Calcium Level 9.4, Corrected Calcium 9.0, Total Bilirubin 0.9, Aspartate Amino Transf (AST/SGOT) 19, Alanine Aminotransferase (ALT/SGPT) 21, Alkaline Phosphatase 65, Troponin I < 0.028, Total Protein 7.4, Albumin 4.5 12/01/21 12:46: Glucometer 116H 12/01/21 13:43: Urine Color YELLOW, Urine Clarity SL CLOUDY, Urine pH 7.0, Urine Specific [place] 1.025H, Urine Protein NEGATIVE, Urine Glucose (UA) NEGATIVE, Urine Ketones NEGATIVE, Urine Nitrite NEGATIVE, Urine Bilirubin NEGATIVE, Urine Urobilinogen 0.2, Urine Leukocyte Esterase NEGATIVE, Urine RBC (Auto) NEGATIVE, Urine RBC NONE, Urine WBC NONE, Urine Squamous Epithelial Cells RARE, Urine Crystals PRESENTH, Urine Amorphous Sediment MOD KATHY URATESH, Urine Bacteria TRACE, Urine Casts NONE, Urine Mucus NEGATIVE, Urine Culture Indicated NO 12/02/21 04:58: White Blood Count 7.5, Red Blood Count 4.23, Hemoglobin 13.4, Hematocrit 39, Mean Corpuscular Volume 92, Mean Corpuscular Hemoglobin 32, Mean Corpuscular Hemoglobin Concent 34, Red Cell Distribution Width 12.6, Platelet Count 233, Mean Platelet Volume 9.0, Immature Granulocyte % (Auto) 0, Neutrophils (%) (Auto) 68, Lymphocytes (%) (Auto) 22, Monocytes (%) (Auto) 9, Eosinophils (%) (Auto) 1, Basophils (%) (Auto) 0, Neutrophils # (Auto) 5.1, Lymphocytes # (Auto) 1.6, Monocytes # (Auto) 0.7, Eosinophils # (Auto) 0.1, Basophils # (Auto) 0.0, Immature Granulocyte # (Auto) 0.0, Sodium Level 136, Potassium Level 4.1, Chloride Level 108H, Carbon Dioxide Level 22, Anion Gap 6, Blood Urea Nitrogen 9, Creatinine 0.74, Estimat Glomerular Filtration Rate 94, BUN/Creatinine Ratio 12, Glucose Level 102, Calcium Level 8.7, Corrected Calcium 8.9, Total Bilirubin 0.6, Aspartate Amino Transf (AST/SGOT) 16, Alanine Aminotransferase (ALT/SGPT) 17, Alkaline Phosphatase 54, Total Protein 6.0L, Albumin 3.7, Phosphorus Level 3.5, Magnesium Level 2.0, Triglycerides Level 85, Cholesterol Level 117, LDL Cholesterol Direct 58, VLDL Cholesterol 17, HDL Cholesterol 41 12/03/21 04:45: White Blood Count 7.3, Red Blood Count 4.20, Hemoglobin 13.6, Hematocrit 39, Mean Corpuscular Volume 93, Mean Corpuscular Hemoglobin 32, Mean Corpuscular Hemoglobin Concent 35, Red Cell Distribution Width 12.5, Platelet Count 213, Mean Platelet Volume 8.9L, Immature Granulocyte % (Auto) 0, Neutrophils (%) (Auto) 65, Lymphocytes (%) (Auto) 23, Monocytes (%) (Auto) 10, Eosinophils (%) (Auto) 2, Basophils (%) (Auto) 0, Neutrophils # (Auto) 4.7, Lymphocytes # (Auto) 1.7, Monocytes # (Auto) 0.7, Eosinophils # (Auto) 0.1, Basophils # (Auto) 0.0, Immature Granulocyte # (Auto) 0.0, Sodium Level 136, Potassium Level 3.9, Chloride Level 105, Carbon Dioxide Level 22, Anion Gap 9, Blood Urea Nitrogen 12, Creatinine 0.75, Estimat Glomerular Filtration Rate 92, BUN/Creatinine Ratio 16, Glucose Level 102, Calcium Level 8.6, Corrected Calcium 8.9, Phosphorus L evel 4.4, Magnesium Level 2.1, Total Bilirubin 0.7, Aspartate Amino Transf (AST/SGOT) 15, Alanine Aminotransferase (ALT/SGPT) 17, Alkaline Phosphatase 61, Troponin I < 0.028, Total Protein 5.9L, Albumin 3.6 Microbiology 12/01/21 MRSA Screen - Final, Complete MRSA not isolated Pending Labs Microbiology Date/Time Source Procedure Growth Status 12/01/21 16:23 Nasal MRSA Screen - Final MRSA not isolated Complete Laboratory Tests 12/01/21 12:41: White Blood Count 8.3, Red Blood Count 4.74, Hemoglobin 15.3, Hematocrit 43, Mean Corpuscular Volume 90, Mean Corpuscular Hemoglobin 32, Mean Corpuscular Hemoglobin Concent 36, Red Cell Distribution Width 12.3, Platelet Count 276, Mean Platelet Volume 9.2, Immature Granulocyte % (Auto) 1, Neutrophils (%) (Auto) 70, Lymphocytes (%) (Auto) 18, Monocytes (%) (Auto) 10, Eosinophils (%) (Auto) 1, Basophils (%) (Auto) 0, Neutrophils # (Auto) 5.8, Lymphocytes # (Auto) 1.5, Monocytes # (Auto) 0.8, Eosinophils # (Auto) 0.1, Basophils # (Auto) 0.0, Immature Granulocyte # (Auto) 0.0, Percent Immature Platelet Fraction 1.5, Prothrombin Time 13.4, INR Comment 1.0, Activated Partial Thromboplast Time 29, D-Dimer <= 0.27, Sodium Level 136, Potassium Level 4.4, Chloride Level 103, Carbon Dioxide Level 24, Anion Gap 9, Blood Urea Nitrogen 14, Creatinine 0.86, Estimat Glomerular Filtration Rate 78, BUN/Creatinine Ratio 16, Glucose Level 103, Calcium Level 9.4, Corrected Calcium 9.0, Total Bilirubin 0.9, Aspartate Amino Transf (AST/SGOT) 19, Alanine Aminotransferase (ALT/SGPT) 21, Alkaline Phosphatase 65, Troponin I < 0.028, Total Protein 7.4, Albumin 4.5 12/01/21 12:46: Glucometer 116 12/01/21 13:43: Urine Color YELLOW, Urine Clarity SL CLOUDY, Urine pH 7.0, Urine Specific [place] 1.025, Urine Protein NEGATIVE, Urine Glucose (UA) NEGATIVE, Urine Ketones NEGATIVE, Urine Nitrite NEGATIVE, Urine Bilirubin NEGATIVE, Urine Urobilinogen 0.2, Urine Leukocyte Esterase NEGATIVE, Urine RBC (Auto) NEGATIVE, Urine RBC NONE, Urine WBC NONE, Urine Squamous Epithelial Cells RARE, Urine Crystals PRESENT, Urine Amorphous Sediment MOD KATHY URATES, Urine Bacteria TRACE, Urine Casts NONE, Urine Mucus NEGATIVE, Urine Culture Indicated NO 12/02/21 04:58: White Blood Count 7.5, Red Blood Count 4.23, Hemoglobin 13.4, Hematocrit 39, Mean Corpuscular Volume 92, Mean Corpuscular Hemoglobin 32, Mean Corpuscular Hemoglobin Concent 34, Red Cell Distribution Width 12.6, Platelet Count 233, Mean Platelet Volume 9.0, Immature Granulocyte % (Auto) 0, Neutrophils (%) (Auto) 68, Lymphocytes (%) (Auto) 22, Monocytes (%) (Auto) 9, Eosinophils (%) (Auto) 1, Basophils (%) (Auto) 0, Neutrophils # (Auto) 5.1, Lymphocytes # (Auto) 1.6, Monocytes # (Auto) 0.7, Eosinophils # (Auto) 0.1, Basophils # (Auto) 0.0, Immature Granulocyte # (Auto) 0.0, Sodium Level 136, Potassium Level 4.1, Chloride Level 108, Carbon Dioxide Level 22, Anion Gap 6, Blood Urea Nitrogen 9, Creatinine 0.74, Estimat Glomerular Filtration Rate 94, BUN/Creatinine Ratio 12, Glucose Level 102, Calcium Level 8.7, Corrected Calcium 8.9, Total Bilirubin 0.6, Aspartate Amino Transf (AST/SGOT) 16, Alanine Aminotransferase (ALT/SGPT) 17, Alkaline Phosphatase 54, Total Protein 6.0, Albumin 3.7, Phosphorus Level 3.5, Magnesium Level 2.0, Triglycerides Level 85, Cholesterol Level 117, LDL Cholesterol Direct 58, VLDL Cholesterol 17, HDL Cholesterol 41 12/03/21 04:45: White Blood Count 7.3, Red Blood Count 4.20, Hemoglobin 13.6, Hematocrit 39, Mean Corpuscular Volume 93, Mean Corpuscular Hemoglobin 32, Mean Corpuscular Hemoglobin Concent 35, Red Cell Distribution Width 12.5, Platelet Count 213, Mean Platelet Volume 8.9, Immature Granulocyte % (Auto) 0, Neutrophils (%) (Auto) 65, Lymphocytes (%) (Auto) 23, Monocytes (%) (Auto) 10, Eosinophils (%) (Auto) 2, Basophils (%) (Auto) 0, Neutrophils # (Auto) 4.7, Lymphocytes # (Auto) 1.7, Monocytes # (Auto) 0.7, Eosinophils # (Auto) 0.1, Basophils # (Auto) 0.0, Immature Granulocyte # (Auto) 0.0, Sodium Level 136, Potassium Level 3.9, Chloride Level 105, Carbon Dioxide Level 22, Anion Gap 9, Blood Urea Nitrogen 12, Creatinine 0.75, Estimat Glomerular Filtration Rate 92, BUN/Creatinine Ratio 16, Glucose Level 102, Calcium Level 8.6, Corrected Calcium 8.9, Phosphorus Level 4.4, Magnesium Level 2.1, Total Bilirubin 0.7, Aspartate Amino Transf (AST/SGOT) 15, Alanine Aminotransferase (ALT/SGPT) 17, Alkaline Phosphatase 61, Troponin I < 0.028, Total Protein 5.9, Albumin 3.6 Discharge Home Medications: Active Scripts Active Reported Chlortabs (Chlorpheniramine Maleate) 4 Mg Tablet 4 Mg PO Q6H PRN Benadryl Allergy (Diphenhydramine HCl) 25 Mg Tablet 75 Mg PO HS TAKES 3 (25MG) TABS Rosuvastatin Calcium 40 Mg Tablet 40 Mg PO HS Ozempic (Semaglutide) 1 Mg/0.75 Ml (4 Mg/3 Ml) Pen.injctr 1 Mg INJ TUES Ranolazine ER (Ranolazine) 1,000 Mg Tab.er.12h 1,000 Mg PO BID Tylenol (Acetaminophen) 325 Mg Capsule 325-650 Mg PO QID PRN Trazodone HCl 50 Mg Tablet 12.5-25 Mg PO HS TAKES TO OF A 50MG TAB Oxymetazoline HCl 0.05 % [place] 2-3 Sprays NSEACH Q12H PRN Mag-Oxide (Magnesium Oxide) 200 Mg Magnesium Tablet 250 Mg PO BID Amlodipine Besylate 2.5 Mg Tablet 2.5 Mg PO DAILY Citalopram HBr (Citalopram Hydrobromide) 20 Mg Tablet 20 Mg PO HS Loratadine 10 Mg Tablet 10 Mg PO BID Ventolin Hfa (Albuterol Sulfate) 90 Mcg Hfa.aer.ad 2 Puff INH Q4H PRN Zetia (Ezetimibe) 10 Mg Tablet 10 Mg PO HS Clopidogrel (Clopidogrel Bisulfate) 75 Mg Tablet 75 Mg PO DAILY Isosorbide Mononitrate ER (Isosorbide Mononitrate) 30 Mg Tab.er.24h 60 Mg PO 18 00 TAKES 2 (30MG) TABS Aspirin EC (Aspirin) 81 Mg Tablet.dr 81 Mg PO DAILY Levothyroxine Sodium 50 Mcg Tablet 50 Mcg PO DAILY Nitroglycerin 0.4 Mg Tab.subl 0.4 Mg SL UD PRN Metoprolol Succinate 50 Mg Tab.er.24h 50 Mg PO DAILY Diphenhydramine HCl 25 Mg Capsule 25 Mg PO DAILY Instructions to patient/family Please see electronic discharge instructions given to patient. Clinical Quality Measures DVT/VTE Risk/Contraindication: Contraindications-Pharm: Other *list below* Other: tpa Stroke: Date of last known well: Dec 01, 2021 Time of last known well: 11:45 Symptoms onset unknown: Yes LULU WAGNER DO Dec 03, 2021 09:46
[2021-12-03] MEDS ORDERED: ASPI-1238 PO (10:46)
[2021-12-03] MEDS ORDERED: ASPIRIN E.C. 81 MG (ECOTRIN) TAB PO SCH (11:00)
[2021-12-03] MEDS: amLODIPine 2.5MG (NORVASC) TAB PO SCH (11:17)
[2021-12-03] MEDS ORDERED: DIPH25TA65 PO (12:29)
[2021-12-03] MEDS ORDERED: RANO10005 PO (12:29)
[2021-12-03] MEDS ORDERED: SEMA1PEN3 INJ (12:29)
[2021-12-03] MEDS ORDERED: ROSU40TA23 PO (12:29)
[2021-12-03] MEDS ORDERED: CHLO-159 PO (12:29)
--- NOTE | 2021-12-03 12:38 | Progress Note - Cardiology ---
Cardiology SOAP Progress Note Subjective: No cp No shortness of breath R-sided weakness Some gen weakness No n/v/d Objective: I&O/Vital Signs 12/03/21 12/03/21 12/03/21 12/03/21 01:00 01:00 02:00 03:00 Pulse 73 73 69 65 Resp 18 16 16 B/P (MAP) 119/75 (87) 116/71 (81) 97/67 (80) Pulse Ox 92 94 93 O2 Delivery Room Air Room Air Room Air 12/03/21 12/03/21 12/03/21 12/03/21 03:56 04:00 04:00 05:00 Temp 36.5 Pulse 67 66 Resp 15 17 B/P (MAP) 98/67 (81) 99/69 (83) Pulse Ox 93 92 O2 Delivery Room Air Room Air Room Air 12/03/21 12/03/21 12/03/21 12/03/21 06:00 07:00 07:28 08:00 Temp 36.5 Pulse 70 67 67 Resp 16 15 B/P (MAP) 113/76 (89) 121/80 (94) Pulse Ox 94 95 O2 Delivery Room Air Room Air 12/03/21 12/03/21 12/03/21 12/03/21 08:00 08:00 09:00 10:00 Pulse 73 70 66 Resp 17 22 17 B/P (MAP) 118/67 (84) 101/36 (57) 106/60 (75) Pulse Ox 93 91 94 O2 Delivery Room Air Room Air Room Air Room Air 12/03/21 00:00 Intake Total 1400 ml Output Total 1075 ml Balance 325 ml Constitutional: AAO x 3, well-developed, well-nourished Respiratory: accessory muscle use; No respiratory distress; chest expansion is symmetric, chest is bilaterally symmetric, lungs clear to auscultation Cardiovascular: regular rate-rhythm; No JVD; S1 and S2 Gastrointestional: No tender; soft, round, audible bowel sounds Extremities: no lower extremity edema bilateral Neurologic/Psychiatric: grossly intact (moves all extremities; 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) Skin: No rash on exposed areas, No ulcerations on exposed areas Results/Procedures: Labs Laboratory Tests 12/03/21 04:45: White Blood Count 7.3, Red Blood Count 4.20, Hemoglobin 13.6, Hematocrit 39, Mean Corpuscular Volume 93, Mean Corpuscular Hemoglobin 32, Mean Corpuscular Hemoglobin Concent 35, Red Cell Distribution Width 12.5, Platelet Count 213, Mean Platelet Volume 8.9L, Immature Granulocyte % (Auto) 0, Neutrophils (%) (Auto) 65, Lymphocytes (%) (Auto) 23, Monocytes (%) (Auto) 10, Eosinophils (%) (Auto) 2, Basophils (%) (Auto) 0, Neutrophils # (Auto) 4.7, Lymphocytes # (Auto) 1.7, Monocytes # (Auto) 0.7, Eosinophils # (Auto) 0.1, Basophils # (Auto) 0.0, Immature Granulocyte # (Auto) 0.0, Sodium Level 136, Potassium Level 3.9, Chlori de Level 105, Carbon Dioxide Level 22, Anion Gap 9, Blood Urea Nitrogen 12, Creatinine 0.75, Estimat Glomerular Filtration Rate 92, BUN/Creatinine Ratio 16, Glucose Level 102, Calcium Level 8.6, Corrected Calcium 8.9, Phosphorus Level 4.4, Magnesium Level 2.1, Total Bilirubin 0.7, Aspartate Amino Transf (AST/SGOT) 15, Alanine Aminotransferase (ALT/SGPT) 17, Alkaline Phosphatase 61, Troponin I < 0.028, Total Protein 5.9L, Albumin 3.6 Microbiology 12/01/21 MRSA Screen - Final, Complete MRSA not isolated Laboratory Tests 12/01/21 12:41 12/02/21 04:58 12/03/21 04:45 A/P: Assessment: CVA - management per stroke team - post status post tPA treatment - She reports still have minimal residual right side weakness (per nurse she reported that her right sided weakness is back to baseline from prior to this event) - Echo on 12-02-21: LVEF 55-60%, PASP WNL Palpitations - . 24 HR Holter of 08-10-21 showed NSR with av HR 65 bpm. Frequent PVC (PVC bu rden 0.7%). No VT or SVT or signif trupti - S/P ILR implant on 08-21-21: NSR with isolated PVCs - recent ILR download 12-03-21 shows no evidence of a-fib/flutter - SR with freq PVC's [place] - Sleep study of 08-13-21 showed mild [place] - following with Dr. Mcneil CAD - Card cath and PCI on 03/02/20: Coronary artery disease primarily consisting of 95% ostial stenosis of the left anterior descending to just past origin of large D1 to which successful balloon angioplasty was carried out with reduced the sten osis to less than 30%. Mild plaque in other cors. RCA dominant - Echocardiogram of 03-02-20 showed LVEF 60-65%. PASP 20-25 mmHg - Card cath and PCI on 04/21/20: PTCA for 95% restenosis at site of PTCA in mid LAD, just past D1, reducing the lesion to less than 10% and with normal antegrade flow, LVEDP 12 mmHg, LVEF 50-55% - Cardiac cath on 06-08-[address] Oden: Severe LAD stenosis, transferred to [facility] - Reports cardiac cath with PCI on 06-10-[address] Haywood at [facility] - Card cath on 06/26/20: Patent LAD stent, mild to mod distal CAD, anomalous high origin of RCA and mild diffuse disease of RCA, LVEDP 11 mmHg, LVEF 55-60% - Card cath 12/03/[address] Gomez at [facility] in [place], [place]: showed LAD patent stent in the prox LAD, in the mid LAD there is an 80% stenosis in small vessel not amenable to intervention. Approx 50% stenosis in the prox first diag. LVEF 675%. Medical tx was advised. 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 The vertebral arteries are codominant. The carotid arteries bifurcate midneck without focal stenosis, vessel cut off, or vascular malformation within the neck. The visualized soft tissues are unremarkable. HTN - controlled Scleroderma, - by history - managed by PCP Celiac dz - managed by PCP HLD - statin tx - followed by PCP H/o occular stroke Medication Intolerance/allergy - Reported allergy to ASA (however, she has been taking ASA, per her report, without difficulty) - reports h/o convulsions - Reported shellfish allergy Orthopedic - H/O chronic joint pain d/t arthritis Family h/o - premature CAD (brothers x2 and father) Dizziness and vertigo - managed by pcp Plan: ILR transmissions reviewed this morning via [facility] - transmissions have not shown any a-fib/flutter - NSR with PVC's Continue current medication regimen Management of stroke is per stroke team Monitor lab Replace electrolytes as indicated Further recs will be based on her hospital course I interviewed and examined the patient and reviewed her records Clinical Quality Measures Stroke: Date of last known well: Dec 01, 2021 Time of last known well: 11:45 Symptoms onset unknown: Yes SERENITY NINO MD FACP FAC CCDS Dec 03, 2021 12:38
== END 2021-12-03 11:34 | DRG 62 ==
LOC: EDUNIT# 12:35 → ER 12:36 → ICU 15:42
PROVIDERS: ADMIT Internal Medicine; ATTEND Internal Medicine
DX: I63.9 Cerebral infarction, unspecified (principal); G81.94 Hemiplegia, unspecified affecting left nondominant side; Z68.42 Body mass index [BMI] 45.0-49.9, adult; R47.1 Dysarthria and anarthria; I25.10 Atherosclerotic heart disease of native coronary artery without angina pectoris; I48.0 Paroxysmal atrial fibrillation; I49.3 Ventricular premature depolarization; G47.33 Obstructive sleep apnea (adult) (pediatric); E78.5 Hyperlipidemia, unspecified; M34.9 Systemic sclerosis, unspecified; K90.0 Celiac disease; E66.01 Morbid (severe) obesity due to excess calories; I10 Essential (primary) hypertension; R29.705 NIHSS score 5; H54.7 Unspecified visual loss; E03.9 Hypothyroidism, unspecified; F41.9 Anxiety disorder, unspecified; F32.A Depression, unspecified; H91.92 Unspecified hearing loss, left ear; Z95.5 Presence of coronary angioplasty implant and graft; Z79.02 Long term (current) use of antithrombotics/antiplatelets; Z79.82 Long term (current) use of aspirin; Z88.8 Allergy status to other drugs, medicaments and biological substances; Z88.5 Allergy status to narcotic agent; Z88.0 Allergy status to penicillin; Z91.013 Allergy to seafood; Z82.49 Family history of ischemic heart disease and other diseases of the circulatory system
CPT/HCPCS: 36415; 70450; 70496; 70498; 71045; 80053; 80061; 81000; 82947; 83735; 84100; 84484; 85025; 85379; 85610; 85730; 87081; 93005; 93041; 93306; 94664; 94760

== ENCOUNTER 2021-12-03 09:47 | Inpatient (IN) | payer MEDICARE, MEDICAID ==
[~2021-12-03] VITALS: Ht 155 cm; Wt 104.0 kg
[~2021-12-03 09:47] MED LIST changes: +ACET325C7 PO; +DICL100G13 TP; +MAGN200T8 PO; +OXYM-12 NSEACH
--- NOTE | 2021-12-03 09:57 | PM&R Post Admission Assessment ---
PM&R HP Date of Visit: Dec 03, 2021 Time of Visit: 11:30 History of Present Illness Chief complaint: CVA HPI: This is a 56-year-old female with a past medical history of CVA 05/2021 and CAD who presents to inpatient rehab following an uncomplicated course in the ICU following tPA for CVA. She continues to have right-sided weakness aggressive rehab to regain function in order to return back to independent living. Echocardiogram completed and carotid ultrasound will be done tomorrow. Dr. Vora sees her on a regular basis and access the loop recorder finding no evidence of any paroxysmal atrial fibrillation. She was placed on therapeutic dose Lovenox. Currently she is doing well and will work on right-sided weakness. Ms. Anjelica Garcia is a 56 y/o F with PMH of CVA in 05/2021, CAD s/p JACQUELINE, HTN, HLD, and scleroderma who presented to the hospital on 12/01/21 with new onset dysarthria and right sided weakness after she had fallen that day. She had a CT brain w/out contrast which showed no acute hemorrhage, thus indicating this to be an acute ischemic stroke. Neurology was consulted and she was administered tPA following the protocol. She had improvement in her symptoms and is only stil l experiencing some mild right sided weakness in her arm and leg. Repeat CT of the head showed no acute intracranial abnormality and no hemorrhage. CTA showed unremarkable CTA of the head and neck. She had an ECHO performed which showed LVEF 55-60% and PASP WNL and did not appear to have a bubble study performed. She had a loop recorder implanted after her stroke in May which was interrogated and showed no atrial fibrillation, but did show some PVCs. Her lipid panel was within goal for stroke risk stratification. She is currently on lovenox for anticoagulation. She is being transferred to inpatient rehab to work on improving her strength. The cause of her stroke is still currently unknown and she may require a coagulopathy workup as an outpatient. SANJUANA AMARO Past Otryjzq-Czjuok-Enrmap Hx Past Med/Social Hx: Reviewed Nursing Past Med/Soc Hx, Reviewed and Corrections made Patient Social History Marrital Status: single Employed/Student: unemployed Alcohol Use: Denies Use Smoking Status: Never a Smoker 2nd Hand Smoke Exposure: Yes Recent Hopitalizations: No Immunizations Up To Date Tetanus Booster (TDap): Unknown Seasonal Allergies Seasonal Allergies: Yes Past Medical History Surgeries: Cardiac, Coronary Stent, Gallbladder, Orthopedic Currently Using CPAP: Yes Cardiac: Atrial Fibrillation, Chronic Edema/Swelling, Coronary Artery Disease, Heart Attack, High Cholesterol, Hypertension, Rheumatic Fever Neurological: 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, Stroke Menopausal Gastrointestinal: Gall Bladder Disease Musculoskeletal: Rheumatoid Arthritis Endocrine: Hypothyroidsim Psychosocial: Anxiety, Depression Skin/Integumentary: Psoriasis History of Blood Disorders: No Family History Alcoholism G8 BROTHER, Onset:15's - 20 Arthritis 19 MOTHER, Onset:Adolescence G8 BROTHER, Onset:Adolescence G8 SISTER, Onset:25's - 30 Asthma G8 BROTHER Cataracts 19 FATHER, Onset:60 years & older Deafness or hearing loss 19 FATHER Dementia 19 FATHER Diabetes mellitus 19 MOTHER G8 BROTHER Hypertension 19 FATHER G8 BROTHER Myocardial infarction 19 FATHER, Onset:60 years & older G8 BROTHER, Onset:40's - 50 Psychosocial problem G8 BROTHER, Onset:25's - 30 Severe allergy 19 FATHER, Onset:[place] 19 MOTHER, Onset:Childhood PAST SURGICAL HISTORY: -CERVICAL SPINE SURGERY -LEFT ELBOW ULNAR NERVE SURGERY -CHOLECYSTECTOMY -CARDIAC CATHS-- -03/02/[address] VORA: CONCLUSIONS: 1. Coronary artery disease primarily consisting of 95% ostial stenosis of a first diagonal of the left anterior descending to which successful balloon angioplasty was carried out with reduced the stenosis to less than 30%. Elsewhere, the patient exhibits mild to moderate diffuse coronary plaques. 2. Normal global left ventricular systolic function with an ejection fraction of approximately 60%. 3. Elevated left ventricular end-diastolic pressure. -HAD STENT X 1 PLACED 06/10/20 AT [facility]. -LAST CARDIAC CATH DONE HERE 06/27/[address] VORA: CONCLUSIONS: 1. Mild coronary artery disease. 2. Patent stent in the mid left anterior descending artery. 3. Normal global left ventricular systolic function with ejection fraction of 55% to 60%. 4. Normal left ventricular end-diastolic pressure. PM&R Allergy/Meds/Data Review Allergies Coded Allergies: nitrofurantoin (Verified Allergy, Severe, 03/02/20) shellfish derived (Verified Allergy, Severe, 03/02/20) atorvastatin (Verified Allergy, Intermediate, 03/02/20) pt states it makes her hurt all over/extreme pain Penicillins (Unverified Allergy, Mild, 06/09/08) Proton Pump Inhibitors (Verified Allergy, Unknown, ANGINA, 02/20/21) codeine (Verified Adverse Reaction, Mild, 12/03/21) Night terrors, psych response Home Medications Scheduled Amlodipine Besylate (Amlodipine Besylate), 2.5 MG PO DAILY, (Reported) Aspirin (Aspirin EC), 81 MG PO DAILY, (Reported) Citalopram Hydrobromide (Citalopram HBr), 20 MG PO HS, (Reported) Clopidogrel Bisulfate (Clopidogrel), 75 MG PO DAILY, (Reported) Diphenhydramine HCl (Diphenhydramine HCl), 25 MG PO DAILY, (Reported) Diphenhydramine HCl (Benadryl Allergy), 75 MG PO HS, (Reported) Ezetimibe (Zetia), 10 MG PO HS, (Reported) Isosorbide Mononitrate (Isosorbide Mononitrate ER), 60 MG PO 1800, (Reported) Levothyroxine Sodium (Levothyroxine Sodium), 50 MCG PO DAILY, (Reported) Loratadine (Loratadine), 10 MG PO BID, (Reported) Magnesium Oxide (Mag-Oxide), 250 MG PO BID, (Reported) Metoprolol Succinate (Metoprolol Succinate), 50 MG PO DAILY, (Reported) Ranolazine (Ranolazine ER), 1,000 MG PO BID, (Reported) Rosuvastatin Calcium (Rosuvastatin Calcium), 40 MG PO HS, (Reported) Semaglutide (Ozempic), 1 MG INJ TUES, (Reported) Trazodone HCl (Trazodone HCl), 12.5-25 MG PO HS, (Reported) Scheduled PRN Acetaminophen (Tylenol), 325-650 MG PO QID PRN for PAIN-MILD (1-4), (Reported) Albuterol Sulfate (Ventolin Hfa), 2 PUFF INH Q4H PRN for SHORTNESS OF BREATH, (Reported) Chlorpheniramine Maleate (Chlortabs), 4 MG PO Q6H PRN for ALLERGY SYMPTOMS, (Reported) Nitroglycerin (Nitroglycerin), 0.4 MG SL UD PRN for CHEST PAIN, (Reported) Oxymetazoline HCl (Oxymetazoline HCl), 2-3 SPRAYS NSEACH Q12H PRN for CONGESTION, (Reported) Discontinued Medications Aspirin (Aspirin EC), 81 MG PO DAILY Discontinued Reason: Duplicate Order Diclofenac Sodium (Diclofenac Sodium), 100 GM TP DAILY PRN, (Reported) Discontinued Reason: No Longer Taking Fluticasone Propionate (Fluticasone Propionate), 15.8 ML NS DAILY, (Reported) Discontinued Reason: No Longer Taking Mv-Mn/Folic Acid/Calcium/Vit K (Women's 50 Plus Multivit Tab), 1 EACH PO DAILY, (Reported) Discontinued Reason: No Longer Taking Ranolazine (Ranolazine ER), 1,000 MG PO BID, (Reported) Discontinued Reason: No Longer Taking Rosuvastatin Calcium (Rosuvastatin Calcium), 40 MG PO HS Discontinued Reason: Duplicate Order Semaglutide (Ozempic), 1 MG SQ WEEK, (Reported) Discontinued Reason: Duplicate Order Current Medications Current Medications Reviewed Review of Systems Constitutional: see HPI, malaise, weakness EENTM: no symptoms reported Respiratory: no symptoms reported Cardiovascular: no symptoms reported Gastrointestinal: no symptoms reported Genitourinary: no symptoms reported Musculoskeletal: back pain, joint pain Skin: no symptoms reported Psychiatric/Neurological: Weakness All Other Systems Reviewed Negative Unless Noted: Yes Physical Exam Physical Exam Vital Signs Capillary Refill : Height, Weight, BMI Height: '" Weight: lbs. oz. kg; 47.26 BMI Method:Estimated General Appearance: No Apparent Distress, WD/WN, Chronically ill, Obese Eyes: Bilateral Eye Normal Inspection, Bilateral Eye PERRL HEENT: PERRL/EOMI, Normal ENT Inspection, Pharynx Normal Neck: Full Range of Motion, Normal Inspection, Non Tender, Supple, Carotid Bruit Respiratory: Chest Non Tender, Lungs Clear, Normal Breath Sounds, No Accessory Muscle Use, No Respiratory Distress Cardiovascular: Regular Rate, Rhythm, No Edema, No Gallop, No JVD, No Murmur, Normal Peripheral Pulses Gastrointestinal: Normal Bowel Sounds, No Organomegaly, No Pulsatile Mass, Non Tender, Soft Back: Normal Inspection, No CVA Tenderness, No Vertebral Tenderness Extremity: Normal Capillary Refill, Normal Inspection, Normal Range of Motion, Non Tender, No Calf Tenderness, No Pedal Edema Neurologic/Psychiatric: Alert, Oriented x3, front end architect II-XII Norm as Tested, Abnormal Gait, Depressed Affect, Motor Weakness (Right-sided weakness 4/5 upper extremity and 3/5 lower extremity) Skin: Normal Color, Warm/Dry Lymphatic: No Adenopathy PM&R Medical Assessment & Plan REHAB/MEDICAL ASSESSMENT AND PLAN: REHAB IMPAIRMENT GROUP: [ ] ETIOLOGIC DIAGNOSIS: [ (condition that led to rehab admission) ] The comorbidities that impact the patients function and/or functional outcome by: [ ] REHAB PLAN: The patient is being admitted to our comprehensive inpatient rehabilitation facility and can tolerate the intensity of service consisting of at least: 180 minutes of therapy a day, 5 out of 7 days a week Rehab treatment will consist of: [ (write brief focus that includes physician, rehab nursing and therapies/modalitiesIPOC will have more specifics) ] The patient/family has a good understanding of our discharge process and will benefit from an interdisciplinary inpatient rehabilitation program. The patient has potential to make improvement and is in need of at least two of the following multidisciplinary therapies including but not limited to physical, occupational, speech, and prosthetics and orthotics. Additionally the patient will need services from respiratory, nutritional services, wound care, psychology, etc. (Customize this to each patient). Given the patients complex condition and risk of further medical complications, rehabilitation services cannot be safely or effectively provided at a lower level of care such as a alf facility. BARRIERS TO DISCHARGE: [ ] ESTIMATED LOS: [ ] DISPOSITION: [ ] RELEVANT CHANGES SINCE PREADMISSION SCREENING: I have compared the patients medical and functional status at the time of the preadmission screening and there are: [no changes] [changes as follows: (if there is a discrepancy between the IGC/Etiologic stated on the PAS, address/clarify this as well) ] PROGNOSIS: [ ] REHABILITATION GOALS: 1. [ (specific to the patient) ] All the above goals were reviewed with the patient and he/she is in agreement. By signing this document, I acknowledge that I have personally performed a full physical examination on this patient within 24 hours of admission to this inpatient rehabilitation facility and have determined the patient to be able to tolerate the above course of treatment at an intensive level for a reasonable period of time. I will be completing a detailed individualized Plan of Care for this patient by day #4 of the patients stay based upon the Preadmission Screen, the Post-Admission Evaluation, and the therapy evaluations. Admission Dx/Comorbidities: (1) CVA (cerebral vascular accident) ICD Codes: I63.9 - Cerebral infarction, unspecified (2) History of coronary artery disease Status: Acute ICD Codes: Z86.79 - Personal history of other diseases of the circulatory system (3) HLD (hyperlipidemia) Status: Chronic ICD Codes: E78.5 - Hyperlipidemia, unspecified (4) HTN (hypertension) Status: Chronic ICD Codes: I10 - Essential (primary) hypertension (5) Obesity Status: Chronic ICD Codes: E66.9 - Obesity, unspecified Assessment/Plan Assessment and Plan Assess & Plan/Chief Complaint Assessment: 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 Obesity Rheumatoid arthritis Plan: Aggressive rehab Supportive care Pain control LULU Walls DO Dec 03, 2021 09:57
[2021-12-03] MEDS ORDERED: diphenhydrAMINE 25 MG TAB (BENADRYL) PO PRN (10:00)
[2021-12-03] MEDS ORDERED: ACETAMINOPHEN 325 MG TABLET PO PRN ×2 (10:00→13:30)
[2021-12-03] MEDS ORDERED: MELATONIN 3 MG TABLET PO PRN ×2 (10:00→13:30)
[2021-12-03] MEDS ORDERED: LOPERAMIDE 2 MG (IMODIUM) TABLET PO PRN (10:00)
[2021-12-03] MEDS ORDERED: CALCIUM CARBONATE 500 MG (TUMS) TAB.CHEW PO PRN ×2 (10:00→13:30)
[2021-12-03] MEDS ORDERED: ONDANSETRON 4 MG (ZOFRAN) ORAL DISSOLVE TAB PO PRN ×2 (10:00→13:30)
[2021-12-03] MEDS ORDERED: guaiFENesin/CODEINE (ROBITUSSIN AC) 10ML UDC PO PRN (10:00)
[2021-12-03] MEDS ORDERED: LACTULOSE SYRUP 10GM/15ML (ENULOSE) 30ML UDC PO PRN ×2 (10:00→13:30)
[2021-12-03] MEDS ORDERED: FLEET ENEMA ADULT 1 EA BTL PR PRN (10:00)
[2021-12-03] MEDS ORDERED: ALPRAZolam 0.25 MG (XANAX) TAB PO PRN (10:00)
[2021-12-03] MEDS ORDERED: DOCUSATE SODIUM 100 MG (COLACE) CAP PO PRN (10:00)
[2021-12-03] MEDS ORDERED: BISACODYL 10 MG SUPP (DULCOLAX) PR PRN ×2 (10:00→13:30)
[2021-12-03] MEDS ORDERED: ASPI-1238 PO (10:46)
[2021-12-03 12:22] VITALS: BP 105/73
[2021-12-03] MEDS ORDERED: CHLO-159 PO (12:29)
[2021-12-03] MEDS ORDERED: ROSU40TA23 PO (12:29)
[2021-12-03] MEDS ORDERED: DIPH25TA65 PO (12:29)
[2021-12-03] MEDS ORDERED: SEMA1PEN3 INJ (12:29)
[2021-12-03] MEDS ORDERED: RANO10005 PO (12:29)
--- NOTE | 2021-12-03 12:50 | Physical Therapy Evaluation ---
PT Evaluation-General Medical Diagnosis Admission Date Dec 03, 2021 at 11:25 Medical Diagnosis: CVA Onset Date: Dec 01, 2021 Therapy Diagnosis Therapy Diagnosis: impaired mobility, strength Precautions Precautions/Isolations: Fall Prevention, Standard Precautions Referral Physician: Wandy Samaniego DO Reason for Referral: Evaluation/Treatment Medical History History of Falls (past yr): Unknown Prior Surgery (last 100 days): Unknown Additional Medical History Past Medical History Surgeries: Cardiac, Coronary Stent, Gallbladder, Orthopedic Asthma, Sleep Apnea Currently Using CPAP: Yes Atrial Fibrillation, Chronic Edema/Swelling, Coronary Artery Disease, Heart Attack, High Cholesterol, Hypertension, Rheumatic Fever 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, 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 6-Ibcabqvwzi-vmcoiey completes the activity by him/herself with no assistance from a helper. 5-Set-up or Clean-up Assistance-helper sets up or cleans up; patient completes activity. [place] assists only prior to or following the activity. 4-Supervision or Touching Assistance-helper provides verbal cues and/or touchi ng/steadying and/or contact guard assistance as patient completes activity. Assistance may be provided throughout the activity or intermittently. 3-Partial/Moderate Assistance-helper does LESS THAN HALF the effort. [place] lifts, holds or supports trunk or limbs, but provides less than half the effort. 2-Substantial/Maximal Assistance-helper does MORE THAN HALF the effort. [place] lifts or holds trunk or limbs and provides more than half the effort. 5-Afjcflsnr-jtvjzm does ALL the effort. Patient does none of the effort to complete the activity. Or, the assistance of 2 or more helpers is required for the patient to complete the activity. If activity was not attempted, code reason: 7-Patient Refused. 9-Not Applicable-not attempted and the patient did not perform the activity before the current illness, exacerbation or injury. 10-Not Attempted due to Environmental Limitations-(lack of equipment, weather restraints, etc.). 88-Not Attempted due to Medical Conditions or Safety Concerns. Bed Mobility: 6 Transfers (B,C,W/C): 6 Gait: 6 Stairs: 6 Indoor Mobility (Ambulation): Independent Stairs: Independent PT Evaluation-Current Subjective Patient in WC pre tx, agrees to PT, has no complaints of pain. Will be co-treating with OT for part of tx due to poor patient mobility, strength, endurance, severe debility, coordinate UE and LE during activity, safety and reduce risk of falls. Pain Section J - Health Conditions 1. Rarely or not at all 2. Occasionally 3. Frequently 4. Almost constantly 8. Unable to answer Pain Effect on Sleep: 1 Pain Interference with Therapy: 1 Pain Interference w/Day-to-Day: 1 Pt/Family Goals to be independent at home Objective Patient Orientation: Person, Place, Situation ROM/Strength ROM Lower Extremities WNL Strength Lower Extremities LLE (hip flexion 4/5, knee flexion 4+/5, knee extension 4+/5, dorsiflexion 4+/5), RLE (hip flexion 3+/5, knee flexion 4/5, knee extension 4/5, dorsiflexion 4+/5) Sensory Hearing: Functional Sensation Right Lower Extremit: Intact Sensation Left Lower Extremity: Intact Transfers Roll Left & Right (QC): 6 Sit to Lying (QC): 4 Lying to Sitting/Side of Bed(Q: 4 Sit to Stand (QC): 4 Chair/Daw-rf-Jlzya Xfer(QC): 4 Toilet Transfer (QC): 4 Car Transfer (QC): 4 Patient performs rolling with independence, supine <-> sit SBA, sit <-> stand and transfers CGA, car transfer CGA. Gait Does the Patient Walk?: Yes Mode of Locomotion: Walk Anticipated Mode of Locomotion: Walk Walk 10 feet (QC): 4 Walk 50 ft with 2 Turns(QC): 4 Walk 150 ft (QC): 4 Walking 10ft/uneven surface-QC: 4 Distance: 150' Gait Assistive Device: FWW Comments/Gait Description Patient can ambulate 150' with a rolling walker with CGA (including 50' with at least 2 turns of 90 degrees and 10' over an uneven surface), patient ambulates slowly, states her right knee feels like it is going to buckle but it never does during tx. Wheelchair Training Wheel 50 ft with 2 turns (QC): 9 Wheel 150 ft (QC): 9 Stairs #of Steps: 1 1 Step (curb) (QC): 4 4 Steps (QC): 88 12 Steps (QC): 88 Walking Assistive Device: Walker Patient can go up and down 1 step using a rolling walker with CGA, cues for foot placement. Balance Sitting Static: Normal Sitting Dynamic: Normal Standing Static: Good Standing Dynamic: Good Picking up an Object (QC): 10 Special Test Comments Tinetti will be performed this afternoon. Treatment Patient also performed dressing and bathing. PT performed bed mobility and transfers, ambulation, stair training, standing and positioning during bathing and dressing, OT performed bathing, dressing, UE positioning and safety during activity. Assessment/Needs Patient in recliner post tx with nurse call, phone, tray, all needs met. Patient has impaired mobility, strength, endurance. CGA for transfers and ambulation. Rehab Potential: Fair PT Short Term Goals Short Term Goals Time Frame: Dec 10, 2021 Roll Left & Right: 6 Sit to lyin Lying to sitting on side of be: 6 Sit to stand: 4 (SBA) Chair/ksr-ef-egzcl transfer: 4 (SBA) Walk 10 feet: 4 (SBA) Walk 50 feet with two turns: 4 (SBA) Walk 150 feet: 4 (SBA) PT Business Applications Analyst Goals Business Applications Analyst Goals PT Business Applications Analyst Goals Time Frame: Dec 24, 2021 Scoring Section J - Health Conditions 1. Rarely or not at all 2. Occasionally 3. Frequently 4. Almost constantly 8. Unable to answer Roll Left to Right (QC): 6 Sit to Lying (QC): 6 Lying-Sitting on Side/Bed(QC): 6 Sit to Stand (QC): 6 Chair/Nni-ry-Twezw Xfer(QC): 6 Car Transfer (QC): 6 Walk 10 feet (QC): 6 Walk 10ft-Uneven Surface(QC): 6 Walk 50ft with 2 Turns (QC): 6 Walk 150 ft (QC): 6 Wheel 50 feet with 2 turns (QC: 9 1 Step (curb) (QC): 4 (SBA) 4 Steps (QC): 4 (SBA) 12 Steps (QC): 4 (SBA) Picking up an Object (QC): 4 (SBA using mental hygiene consultant) Toilet transfer independent, no LTG for WC PT Plan Problem List Problem List: Activity Tolerance, Functional Strength, Safety, Balance, Gait, Transfer, Bed Mobility, ROM Treatment/Plan Treatment Plan: Continue Plan of Care Treatment Plan: Bed Mobility, Education, Functional Activity Jase, Functional Strength, Group Therapy, Gait, Safety, Therapeutic Exercise, Transfers Treatment Duration: Dec 24, 2021 Frequency: At least 5 of 7 days/Wk (IRF) Estimated Hrs Per Day: 1.5 hours per day Patient and/or Family Agrees t: Yes Safety Risks/Education Patient Education: Gait Training, Transfer Techniques, Steps, Correct Positioning, Safety Issues Teaching Recipient: Patient Teaching Methods: Demonstration, Discussion Response to Teaching: Reinforcement Needed Discharge Recommendations Plan Patient will perform bed mobility and transfer training, balance and endurance training, functional strengthening, stair training, gait training, and education, to improve functional mobility and independence at home. Therapy Discharge Recommendati: Home & Family, Post Acute PT Time/GCodes Time In: 1140 Time Out: 1210 Total Billed Treatment Time: 30 Total Billed Treatment 1 visit EVM 10' FA 20' PT eval from [id number], co-treat from [id number] ALEXIS ANDERS PT Dec 03, 2021 12:50
--- NOTE | 2021-12-03 12:52 | Occupational Therapy Eval ---
OT Evaluation-General/PLF Medical Diagnosis Admission Date Dec 03, 2021 at 11:25 Medical Diagnosis: CVA Onset Date: Dec 01, 2021 Therapy Diagnosis Therapy Diagnosis: decreased ADL status Precautions Precautions/Isolations: Fall Prevention, Standard Precautions Referral Physician: Aden Turner Reason: Evaluation/Treatment Medical History Additional Medical History L ulnar nerve surgery, scleroderma, asthma, sleep apnea, afib, CAD, HTN, [place], CVA, RA, anxiety/depression Current History ED 12/01/21 with stroke like symptoms and R side weakness, found to have an acute ischemic stroke, s/p tPA 12/01/21 Social History Home: Single Level Current Living Status: Alone Entry Into Home: Stairs With Railing Steps Into Home: 4 ADL-Prior Level of Function SCALE: Activities may be completed with or without assistive devices. 0-Jgjrjlqsqh-vsrhppe completes the activity by him/herself with no assistance from a helper. 5-Set-up or Clean-up Assistance-helper sets up or cleans up; patient completes activity. [place] assists only prior to or following the activity. 4-Supervision or Touching Assistance-helper provides verbal cues and/or touching/steadying and/or contact guard assistance as patient completes activity. Assistance may be provided throughout the activity or intermittently. 3-Partial/Moderate Assistance-helper does LESS THAN HALF the effort. [place] lifts, holds or supports trunk or limbs, but provides less than half the effort. 2-Substantial/Maximal Assistance-helper does MORE THAN HALF the effort. [place] lifts or holds trunk or limbs and provides more than half the effort. 0-Tuyvhfnxy-eriufz does ALL the effort. Patient does none of the effort to complete the activity. Or, the assistance of 2 or more helpers is required for the patient to complete the activity. If activity was not attempted, code reason: 7-Patient Refused. 9-Not Applicable-not attempted and the patient did not perform the activity before the current illness, exacerbation or injury. 10-Not Attempted due to Environmental Limitations-(lack of equipment, weather restraints, etc.). 88-Not Attempted due to Medical Conditions or Safety Concerns. ADL PLOF Comments Pt reports IND with ADLs and functional mobility at PLOF, no AD. She has a tub/shower with tub transfer bench. She has used a cane in the past Self Care: Independent Functional Cognition: Independent DME/Equipment: Bath Bench, Tub/Shower Leisure Interests: candi, beadwork OT Current Status Subjective Pt agreeable to OT evaluation and tx. Mental Status/Objective Patient Orientation: Person, Place, Time, Situation Acute Mental Status Change: 0 Inattention: 0 Disorganized thinkin Altered level of consciousness: 0 Current Glasses/Contacts: Yes Hearing Aids: No Dentures/Partials: No Hand Dominance: Right Upper Extremity ROM WFL, BUE shoulder flexion to approx 140 degrees Upper Extremity Coordination WFL Upper Extremity Sensation Pt is at baseline with sensations BUEs. Pt has slight tingling and numbness in hand, but reports this is normal. Upper Extremity Strength RUE shoulder flexion 4-/5, LUE shoulder flexion 4/5 BUE elbow and airfield services officer grossly 4/5 ADL-Treatment Eating (QC): 6 (Per pt report) Oral Hygiene (QC): 5 (Per clincial judgment) Shower/Bathe Self (QC): 4 (CGA in stand for sponge bath) Upper Body Dressing (QC): 5 (set up with warehouse order puller shirt) Lower Body Dressing (QC): 4 (CGA during pant hike.) On/Off Footwear (QC): 4 (SBA donning/doffing gripper socks.) Toileting Hygiene (QC): 4 (CGA for pant hike.) Other Treatments 1st tx: Pt in bed, transferred supine to sit EOB, SBA. Pt completed SPT from EOB to w/c. Pt taken to ARU. OT/PT cotreat due to skill of 2 clinicians required which a clinical rehabilitation specialist could not perform in order to coordinate UE/LEs, decrease fall risk, and due to pt's limitations in strength and activity tolerance. OT focused on UE placement, cues for sequencing and safety, and ADLs, PT focused on LE placement, gross overall movement, and transfers/mobility. Pt completed sponge bath and dressing, then functional mobility/transfers using FWW. Pt returned to her room, transferring to recliner. Post tx, pt in recliner, call light in reach and all needs met. CGA for sit to/from stand transfers, mobility with FWW 150', 2nd tx: Pt in recliner, states she hasn't had lunch yet. OT talked with nurse for diet order and lunch was ordered. OT educated pt on menu and rehab expectation/process. BIMS performed. Pt transferred sit to stand, CGA, then used FWW to therapy gym, CGA. In order to increase BUE Strength and activitiy tolerance, pt completed x10 min on arm bike, x20 Watt resistance, no rest break. Pt returned to her room using FWW, CGA, transferring to recliner. Post tx, pt in recliner, call light in reach and all needs met. Education OT Patient Education: Correct positioning, Energy conservation, Modified ADL techniques, Progress toward Goal/Update tx plan, Purpose of tx/functional activities, Rehab process Teaching Recipient: Patient Teaching Methods: Discussion Response to Teaching: Verbalize Understanding OT Half-Way Goals Business Relationship Manager Goals Time Frame: Dec 21, 2021 Acute change in mental status: 0 Inattention: 0 Disorganized thinkin Altered level of consciousness: 0 Eating (QC): 6 Oral Hygiene (QC): 6 Toileting Hygiene (QC): 6 Shower/Bathe Self (QC): 6 Upper Body Dressing (QC): 6 Lower Body Dressing (QC): 6 On/Off Footwear (QC): 6 Additional Goals: 1-Demonstrate ADL Tasks, 2-Verbalize Understanding, 3- ImproveStrength/Jase 1=Demonstrate adherence to instructed precautions during ADL tasks. 2=Patient will verbalize/demonstrate understanding of assistive devices/modifications for ADL. 3=Patient will improve strength/tolerance for activity to enable patient to perform ADL's. OT Education/Plan Problem List/Assessment Assessment: Decreased Activ Tolerance, Decreased UE Strength, Impaired Funct Balance, Impaired I ADL's, Impaired Self-Care Skills Discharge Recommendations Plan/Recommendations: Continue POC Treatment Plan/Plan of Care Patient would benefit from OT for education, treatment and training to promote independence in ADL's, mobility, safety and/or upper extremity function for ADL's. Plan of Care: ADL Retraining, Functional Mobility, Group Exercise/Act as Ind, UE Funct Exercise/Act Treatment Duration: Dec 21, 2021 Frequency: At least 5 of 7 days/Wk (IRF) Estimated Hrs Per Day: 1.5 hours per day Agreement: Yes Rehab Potential: Good Time/GCodes Start Time: 11:25 ([id number]) Stop Time: 13:40 ([id number]) Total Time Billed (hr/min): 75 Billed Treatment Time 5799-1929 OT eval (15'). PT eval [id number] (not billed), [place] [id number] (20') 1, EVM (15'), ADL (20') [id number] OT tx 1, FA 2 (25'), EX (15') CHELSEY CASAREZ OT Dec 03, 2021 12:52
--- NOTE | 2021-12-03 13:07 | ST Cognitive Linguistic Eval ---
Speech Evaluation-General Medical Diagnosis CVA Onset Date: Dec 01, 2021 Therapy Diagnosis Therapy Diagnosis: Intact Cognition Precautions Precautions: Fall, Pressure Ulcer Precautions/Isolations: Fall Prevention, Standard Precautions Referral Referring Physician: Dr. Samaniego Reason for Referral: Evaluation/Treatment Medical History Current History L ulnar nerve surgery, scleroderma, asthma, sleep apnea, afib, CAD, HTN, [place], CVA, RA, anxiety/depression Current History The patient is a 56 year-old female with a past medical history significant for L ulnar nerve surgery, scleroderma, asthma, sleep apnea, afib, CAD, HTN, [place], CVA, RA, and anxiety/depression, who presented to the ED on 12/01/21 with stroke like symptoms and R side weakness. The patient was found to have an acute ischemic stroke and received tPA. Reviewed History: Yes Social History Current Living Status: Alone Speech PLF-Current Status Prior Level of Function The patient denied current or recent challenges with her speech, language, cognition, or swallowing. Subjective The patient was seated upright in her recliner, awake and alert upon entrance to her room by the clinician. The patient greeted the clinician appropriately and was agreeable to participation in the cognitive linguistic assessment. Language Eval: Auditory Comprehends Simple Yes/No Ques: Functional Indent/Objects Multiple Castillo: Functional Ident/Pics in Multiple Castillo: Functional Follows 1-Step Commands: Functional Follows General Conversations: Functional Language Eval: Verbal Language Completes Spontaneous Greeting: Functional Produces Auto, Serial Info: Functional Imitates Simple Words/Phrases: Functional Word Finding: Functional Requests Basic Needs: Functional States Basic Personal Info: Functional Expresses Complex Ideas: Functional Language Evaluation: Reading Follows Simple Written Direct: Functional Language Evaluation: Writing Writes to Simple Dictation: Functional Cognitive Patient Orientation The patient was independently oriented to self, location, month, day of the week, date and year. Objective Cognitive Domain Attention: WNL Memory: WNL Problem Solving: Functional Executive Functions: WNL Visuospatial Skills: WNL Composite Severity Rating: WNL Clock Drawing Severity Rating: WNL Objective Formal/Standardized Tests [facility] Mental Status Exam (UMS) Results The patient demonstrated a result of +30/30 on the SLUMS correlating to a score within normal limits. Oral Motor/Speech Production The patient does not display dysarthria or apraxia of speech. The patient is 100% intelligible in known and unknown contexts. Impression The patient demonstrates intact cognitive linguistic skills. Speech Patient Assess Expression of Ideas/Wants: Expression (4) Understanding Verbal Content: Understands (4) Brief Interview-Mental Status: Yes Repetition of Three Words: Three (3) Temporal Orientation: Year: Correct (3) Temporal Orientation: Month: Accurate within 5 days(2) Temporal Orientation: Day: Correct (1) Recall : Wear to say "Sock": Yes, no cue required (2) Recall : Color: Yes, no cue required (2) Recall : Bed: Yes, no cue required (2) Memory/Recall Ability: Current season, Location of own room, Staff names and faces, That he or she is in a hsp/hsp unit Speech-Plan Treatment Plan Speech Therapy Treatment Plan: Discontinue ST Frequency: 1 time per week Estimated Hrs Per Day: .5 hour per day Rehab Potential: Good Safety Risks/Education Teaching Recipient: Patient Teaching Methods: Discussion Response to Teaching: Verbalize Understanding Education Topics Provided: Results, Recommendations, Plan of Care Time Speech Therapy Time In: 12:10 Speech Therapy Time Out: 12:40 Total Billed Time: 30 Billed Treatment Time 1, FUENTES GRACE [facility] ST Dec 03, 2021 13:07
[2021-12-03] MEDS ORDERED: LORazepam 0.5 MG (ATIVAN) TABLET PO PRN (13:30)
[2021-12-03] MEDS ORDERED: ONDANSETRON 4 MG/2 ML (SDV) Z0FRAN IV PRN (13:30)
[2021-12-03] MEDS ORDERED: NON-FORMULARY MEDICATION 1 EA EA (Semaglutide (Ozempic) 1 MG) SQ SCH (13:30)
[2021-12-03] MEDS ORDERED: diphenhydrAMINE 50 MG/ML INJ (BENADRYL) IVP PRN (13:30)
[2021-12-03] MEDS ORDERED: NITROGLYCERIN 0.4 MG SL TABS BTL 25'S SL PRN (13:30)
[2021-12-03] MEDS ORDERED: ANTACID SUSP 30 ML UDC (MYLANTA) PO PRN (13:30)
[2021-12-03] MEDS ORDERED: morphine IMMEDIATE RELEASE 15 MG TABLET PO PRN (13:30)
[2021-12-03] MEDS ORDERED: MILK OF MAGNESIA 400 MG/5 ML 30 ML UDC PO PRN (13:30)
[2021-12-03] MEDS ORDERED: RT-ALBUTEROL SULF 2.5 MG/3 ML PRE-MIX VIAL INH PRN (13:30)
[2021-12-03] MEDS ORDERED: polyethylene glycoL POWDER 17 GM (MIRALAX) PACK PO PRN (13:30)
[2021-12-03] MEDS ORDERED: morphine INJ 4 MG/ML 1 ML (VIAL/SYRINGE) IV PRN (13:30)
[2021-12-03 13:32] VITALS: BP 135/78
--- NOTE | 2021-12-03 13:36 | Progress Note ---
SANJUANA AMARO 12/03/21 1336: Progress Note Ms. Anjelica Garcia is a 56 y/o F with PMH of CVA in 05/2021, CAD s/p JACQUELINE, HTN, HLD, and scleroderma who presented to the hospital on 12/01/21 with new onset dysarthria and right sided weakness after she had fallen that day. She had a CT brain w/out contrast which showed no acute hemorrhage, thus indicating this to be an acute ischemic stroke. [facility] was consulted and she was administered tPA following the protocol. She had improvement in her symptoms and is only still experiencing some mild right sided weakness in her arm and leg. Repeat CT of the head showed no acute intracranial abnormality and no hemorrhage. CTA showed unremarkable CTA of the head and neck. She had an ECHO performed which showed LVEF 55-60% and PASP WNL and did not appear to have a bubble study performed. She had a loop recorder implanted after her stroke in May which was interrogated and showed no atrial fibrillation, but did show some PVCs. Her lipid panel was within goal for stroke risk stratification. She is currently on lovenox for anticoagulation. She is being transferred to inpatient rehab to work on improving her strength. The cause of her stroke is still currently unknown and she may require a coagulopathy workup as an outpatient. WANDY SAMANIEGO DO 12/04/21 0524: Supervisory-Addendum Brief Verification & Attestation Participated in pt care: history, MDM, physical Personally performed: exam, history, MDM, supervision of care Care discussed with: Medical Student Procedures: n/a Results interpretation: Verified all documentation Verification and Attestation of Medical Student E/M Service A medical student performed and documented this service in my presence. I revi ewed and verified all information documented by the medical student and made modifications to such information, when appropriate. I personally performed the physical exam and medical decision making. Wandy Samaniego Dec 04, 2021,05:24 SANJUANA AMARO Dec 03, 2021 13:36 WANDY SAMANIEGO DO Dec 04, 2021 05:24
--- NOTE | 2021-12-03 13:40 | IRF PAI BIMS ---
BIMS BIMS IRF JANESSA BIMS: IRF JANESSA BIMS Response (Comments) Value Expression of Ideas and Wants (Verbal/Non Verbal) Without Difficulty 3 Understanding Verbal Content Understands 3 Should Brief Interview for Mental Status be Conducted Yes Repitition of Three Words Three 3 What year is it right now? Correct 0 What month is it right now? Accurate within 5 days 0 What week is it now? Correct 0 Recalls Socks Yes, No Cue Required 2 Recalls Blue Yes, No Cue Required 2 Recalls Bed Yes, No Cue Required 2 Total 15 Brief Interview/Mental Status: No Notes: score 15/15 CHELSEY CASAREZ OT Dec 03, 2021 13:40
--- NOTE | 2021-12-03 14:18 | Physical Therapy Daily Note ---
PT Daily Note-Current Subjective Patient in recliner pre tx, agrees to PT, has no complaints of pain. Pain Section J - Health Conditions 1. Rarely or not at all 2. Occasionally 3. Frequently 4. Almost constantly 8. Unable to answer Pain Effect on Sleep: 1 Pain Interference with Therapy: 1 Pain Interference w/Day-to-Day: 1 Appearance Patient on toilet post tx, instructed to use nurse call when done. Mental Status Patient Orientation: Person, Place, Situation Attachments: Mata Catheter Transfers SCALE: Activities may be completed with or without assistive devices. 2-Opjawhcfwa-eynsdha completes the activity by him/herself with no assistance from a helper. 5-Set-up or Clean-up Assistance-helper sets up or cleans up; patient completes activity. [place] assists only prior to or following the activity. 4-Supervision or Touching Assistance-helper provides verbal cues and/or touching/steadying and/or contact guard assistance as patient completes activity. Assistance may be provided throughout the activity or intermittently. 3-Partial/Moderate Assistance-helper does LESS THAN HALF the effort. [place] lifts, holds or supports trunk or limbs, but provides less than half the effort. 2-Substantial/Maximal Assistance-helper does MORE THAN HALF the effort. [place] lifts or holds trunk or limbs and provides more than half the effort. 4-Wfyxxxoei-bsbyng does ALL the effort. Patient does none of the effort to compl ete the activity. Or, the assistance of 2 or more helpers is required for the patient to complete the activity. If activity was not attempted, code reason: 7-Patient Refused. 9-Not Applicable-not attempted and the patient did not perform the activity before the current illness, exacerbation or injury. 10-Not Attempted due to Environmental Limitations-(lack of equipment, weather restraints, etc.). 88-Not Attempted due to Medical Conditions or Safety Concerns. Sit to Stand (QC): 4 Chair/Wgk-tf-Qqcmh Xfer(QC): 4 SBA Gait Training Distance: 150'x2 Walk 10 feet (QC): 4 Walk 50 ft with 2 Turns(QC): 4 Walk 150 ft (QC): 4 Gait Persons Needed: 1 Gait Assistive Device: FWW SBA, slow but steady ambulation Balance Picking up an Object (QC): 4 (SBA using a construction equipment technician) Special Test Comments Patient scored 20/28 on the Tinetti Exercises NuStep Minutes: 15 NuStep Workload: 4 Treatments transfers, ambulation, balance testing, functional strengthening Assessment Current Status: Fair Progress SBA with transfers and ambulation PT Short Term Goals Short Term Goals Time Frame: Dec 10, 2021 Roll Left & Right: 6 Sit to lyin Lying to sitting on side of be: 6 Sit to stand: 4 (SBA) Chair/jxx-eg-uaiqs transfer: 4 (SBA) Walk 10 feet: 4 (SBA) Walk 50 feet with two turns: 4 (SBA) Walk 150 feet: 4 (SBA) PT Flag Signaler Goals Flag Signaler Goals PT Intermediate Goals Time Frame: Dec 24, 2021 Roll Left & Right (QC): 6 Sit to Lying (QC): 6 Lying-Sitting on Side/Bed(QC): 6 Sit to Stand (QC): 6 Chair/Hls-vb-Rsamn Xfer(QC): 6 Toilet Transfer (QC): 6 Car Transfer (QC): 6 Does the Patient Walk: Yes Walk 10 feet (QC): 6 Walk 50ft with 2 Turns (QC): 6 Walk 150 ft (QC): 6 Walking 10ft on Uneven Surface: 6 1 Step (curb) (QC): 4 (SBA) 4 Steps (QC): 4 (SBA) 12 Steps (QC): 4 (SBA) Picking up an Object (QC): 4 (SBA using construction equipment technician) Wheel 50 feet with 2 turns (QC: 9 Wheel 150 feet: 9 PT Plan Problem List Problem List: Activity Tolerance, Functional Strength, Safety, Balance, Gait, Transfer, Bed Mobility, ROM Treatment/Plan Treatment Plan: Continue Plan of Care Treatment Plan: Bed Mobility, Education, Functional Activity Jase, Functional Strength, Group Therapy, Gait, Safety, Therapeutic Exercise, Transfers Treatment Duration: Dec 24, 2021 Frequency: At least 5 of 7 days/Wk (IRF) Estimated Hrs Per Day: 1.5 hours per day Patient and/or Family Agrees t: Yes Safety Risks/Education Patient Education: Gait Training, Transfer Techniques, Correct Positioning, Safety Issues Teaching Recipient: Patient Teaching Methods: Demonstration, Discussion Response to Teaching: Reinforcement Needed Time/GCodes Time In: 1340 Time Out: 1425 Total Billed Treatment Time: 45 Total Billed Treatment 1 visit EX 15' FA 30' ALEXIS ANDERS PT Dec 03, 2021 14:18
[2021-12-03] MEDS: ENOXAPARIN 100 MG/1 ML (LOVENOX) SYR SC SCH (15:06)
[2021-12-03] MEDS: ISOSORBIDE MONONITRATE 30 MG (IMDUR) TAB PO SCH (15:06)
[2021-12-03] MEDS: DICLOFENAC 1% GEL 100 GM (VOLTAREN) TUBE TP SCH ×2 (17:14→23:12)
[2021-12-03] MEDS: MAGNESIUM OXIDE (MAG-OX)400 MG TAB PO SCH (17:14)
[2021-12-03] MEDS: eZETimibe 10 MG (ZETIA) TABLET PO SCH (19:26)
[2021-12-03] MEDS: ROSUVASTATIN 20 MG (CRESTOR) TABLET PO SCH (19:26)
[2021-12-03] MEDS: RANOLAZINE ER 500 MG TAB (RANEXA) PO SCH (19:26)
[2021-12-03] MEDS: LORATADINE (CLARITIN) 10 MG TAB PO SCH (19:27)
[2021-12-03] MEDS: traZODone 50 MG (DESYREL) TAB PO SCH (19:27)
[2021-12-03] MEDS: DOCUSATE SODIUM 100 MG (COLACE) CAP PO SCH (19:35)
[2021-12-03] MEDS: polyethylene glycoL POWDER 17 GM (MIRALAX) PACK PO SCH (19:35)
[2021-12-03] MEDS: SENNOSIDES 8.6 MG (SENOKOT) TAB PO SCH (19:36)
[2021-12-03 20:04] VITALS: BP 112/70
[2021-12-03] MEDS: ACETAMINOPHEN 325 MG TABLET PO PRN (20:58)
[2021-12-03] MEDS ORDERED: DOCUSATE SODIUM 100 MG (COLACE) CAP PO SCH (21:00)
[2021-12-03] MEDS ORDERED: SENNA W/DOCUSATE (SENOKOT S) TABLET PO SCH (21:00)
[2021-12-04] MEDS: ENOXAPARIN 100 MG/1 ML (LOVENOX) SYR SC SCH ×2 (02:11→15:28)
[2021-12-04 05:33] LABS: BASOPHILS % (AUTO) 1 % (0-10); EOSINOPHILS # (AUTO) 0.2 10^3/uL (0.0-0.3); EOSINOPHILS % (AUTO) 2 % (0-10); HEMATOCRIT 36 % (35-52); HEMOGLOBIN 12.7 g/dL (11.5-16.0); LYMPHOCYTES # (AUTO) 1.8 10^3/uL (1.0-4.0); LYMPHOCYTES % (AUTO) 28 % (12-44); MEAN CORPUSCULAR HEMOGLOBIN 32 pg (25-34); MEAN CORPUSCULAR HGB CONC 35 g/dL (32-36); MEAN CORPUSCULAR VOLUME 92 fL (80-99); MEAN PLATELET VOLUME 9.2 fL (9.0-12.2); MONOCYTES # (AUTO) 0.8 10^3/uL (0.0-1.0); MONOCYTES % (AUTO) 12 % (0-12); NEUTROPHILS # (AUTO) 3.8 10^3/uL (1.8-7.8); NEUTROPHILS % (AUTO) 58 % (42-75); PLATELET COUNT 200 10^3/uL (130-400); WHITE BLOOD COUNT 6.6 10^3/uL (4.3-11.0)
[2021-12-04 06:03] LABS: ALBUMIN 3.4 GM/DL (3.2-4.5); BILIRUBIN,TOTAL 0.6 MG/DL (0.1-1.0); CALCIUM 8.6 MG/DL (8.5-10.1); CREATININE SERUM 0.84 MG/DL (0.60-1.30); POTASSIUM 4.3 MMOL/L (3.6-5.0); TOTAL PROTEIN 5.7 GM/DL (6.4-8.2)
[2021-12-04] MEDS: LEVOTHYROXINE 50 MCG (LEVOTHROID) TAB PO SCH (06:05)
[2021-12-04] MEDS: MULTIVIT W/MINERALS TAB (THERAGRAN M) PO SCH (06:05)
[2021-12-04] MEDS: DICLOFENAC 1% GEL 100 GM (VOLTAREN) TUBE TP SCH ×3 (06:07→17:05)
--- NOTE | 2021-12-04 06:37 | PM&R Progress Note ---
Subjective HPI/CC On Admission Date Seen by Provider: Dec 04, 2021 Time Seen by Provider: 08:45 Subjective/Events-last exam 12/04/2021: Pt is doing really well No major issues Bowels are moving No falls Checked meds and labs Right sided weakness remains Review of Systems General: Fatigue, Malaise Neurological: Weakness Objective Exam Vital Signs Vital Signs Date Time Temp Pulse Resp B/P (MAP) Pulse Ox O2 Delivery O2 Flow Rate FiO2 12/05/21 01:00 72 12/04/21 20:00 36.8 20 113/69 (84) 98 Room Air Capillary Refill : General Appearance: No Apparent Distress, WD/WN, Chronically ill, Obese HEENT: PERRL/EOMI, Normal ENT Inspection, Pharynx Normal Neck: Full Range of Motion, Normal Inspection, Non Tender, Supple, Carotid Bruit Respiratory: Chest Non Tender, Lungs Clear, Normal Breath Sounds, No Accessory Muscle Use, No Respiratory Distress Cardiovascular: Regular Rate, Rhythm, No Edema, No Gallop, No JVD, No Murmur, Normal Peripheral Pulses Gastrointestinal: Normal Bowel Sounds, No Organomegaly, No Pulsatile Mass, Non Tender, Soft Back: Normal Inspection, No CVA Tenderness, No Vertebral Tenderness Extremity: Normal Capillary Refill, Normal Inspection, Normal Range of Motion, Non Tender, No Calf Tenderness, No Pedal Edema Neurologic/Psychiatric: Alert, Oriented x3, silk folder II-XII Norm as Tested, Abnormal Gait, Depressed Affect, Motor Weakness (Right-sided weakness 4/5 upper extremity and 3/5 lower extremity) Skin: Normal Color, Warm/Dry Lymphatic: No Adenopathy Results/Procedures Lab Laboratory Tests 12/04/21 05:24 Patient resulted labs reviewed. FIM Transfers Therapy Code Descriptions/Definitions Functional [place] Measure: 0=Not Assessed/NA 4=Minimal Assistance 1=Total Assistance 5=Supervision or Setup 2=Maximal Assistance 6=Modified [place] 3=Moderate Assistance 7=Complete IndependenceSCALE: Activities may be completed with or without assistive devices. 0-Rthjceskdw-paoowzy completes the activity by him/herself with no assistance from a helper. 5-Set-up or Clean-up Assistance-helper sets up or cleans up; patient completes activity. [place] assists only prior to or following the activity. 4-Supervision or Touching Assistance-helper provides verbal cues and/or touching/steadying and/or contact guard assistance as patient completes activity. Assistance may be provided throughout the activity or intermittently. 3-Partial/Moderate Assistance-helper does LESS THAN HALF the effort. [place] lifts, holds or supports trunk or limbs, but provides less than half the effort. 2-Substantial/Maximal Assistance-helper does MORE THAN HALF the effort. [place] lifts or holds trunk or limbs and provides more than half the effort. 6-Aukhjqjuq-ayqwuf does ALL the effort. Patient does none of the effort to complete the activity. Or, the assistance of 2 or more helpers is required for the patient to complete the activity. If activity was not attempted, code reason: 7-Patient Refused. 9-Not Applicable-not attempted and the patient did not perform the activity before the current illness, exacerbation or injury. 10-Not Attempted due to Environmental Limitations-(lack of equipment, weather restraints, etc.). 88-Not Attempted due to Medical Conditions or Safety Concerns. Roll Left to Right (QC): 6 Sit to Lying (QC): 4 Sit to Stand (QC): 4 Chair/Kpt-jm-Tffue Xfer(QC): 4 Car Transfer (QC): 4 Gait Training Does the Patient Walk?: Yes Distance: 150'x2 Walk 10 feet (QC): 4 Walk 50 ft with 2 Turns(QC): 4 Walk 150 ft (QC): 4 Walking 10ft/uneven surface-QC: 4 Gait Persons Needed: 1 Gait Assistive Device: FWW Wheelchair Training Wheel 50 ft with 2 turns (QC): 9 Wheel 150 ft (QC): 9 Stair Training #of Steps: 1 1 Step (curb) (QC): 4 4 Steps (QC): 88 12 Steps (QC): 88 Balance Picking up an Object (QC): 4 (SBA using a fur sewer) ADL-Treatment Eating (QC): 6 (Per pt report) Oral Hygiene (QC): 5 (Per clincial judgment) Shower/Bathe Self (QC): 4 (CGA in stand for sponge bath) Upper Body Dressing (QC): 5 (set up with caul puller shirt) Lower Body Dressing (QC): 4 (CGA during pant hike.) On/Off Footwear (QC): 4 (SBA donning/doffing gripper socks.) Toileting Hygiene (QC): 4 (CGA for pant hike.) Assessment/Plan Assessment and Plan Assess & Plan/Chief Complaint Assessment: 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 Obesity Rheumatoid arthritis Plan: Aggressive rehab Supportive care Pain control MARIBELL Mata 12/04/2021: Tely Monitor closely (1) CVA (cerebral vascular accident) (2) History of coronary artery disease Status: Acute (3) HLD (hyperlipidemia) Status: Chronic (4) HTN (hypertension) Status: Chronic (5) Obesity Status: Chronic LULU WAGNER DO Dec 04, 2021 06:37
--- NOTE | 2021-12-04 06:37 | Individualized Plan of Care ---
Individualized Plan of Care Rehab Nursing IPOC Order Admission Date Dec 03, 2021 at 11:25 Current Orders Orders Admission Order(Inpt,Obs,Sdc) (12/03/21 09:55) Vital Signs: Per Unit Policy ( ,16,00 (12/03/21 09:55) Sourav Sweeney (12/03/21 09:55) Sequential Compression Device (12/03/21 09:55) [employer] Cake Decorator-Inpt Rehab Con (12/03/21 09:55) Rehab Nursing Orders-Ipoc (12/03/21 09:55) Physical Therapy Rehab Orders (12/03/21 09:55) Occupational Therapy Rehab Ord (12/03/21 09:55) Speech Therapy Rehab Orders (12/03/21 09:55) Cbc With Automated Diff (12/04/21 06:00) Comprehensive Metabolic Panel (12/04/21 06:00) Precautions (Aru) (12/03/21 09:55) Weekly Weight WEEK (12/03/21 09:55) Rehab-Intensity Of Therapy (12/03/21 09:55) Initiate Admission Nursing Pro .admission (12/03/21 09:55) Alprazolam Tablet (Xanax Tablet) (12/03/21 10:00) Calcium Carbonate Chew Tablet (Antacid C (12/03/21 10:00) Diphenhydramine Tablet (Benadryl Tablet) (12/03/21 10:00) Docusate Sodium Capsule (Colace Capsule) (12/03/21 21:00) Docusate Sodium Capsule (Colace Capsule) (12/03/21 10:00) Bisacodyl Suppository (Dulcolax Supposit (12/03/21 10:00) Lactulose Oral Solution (Enulose Oral So (12/03/21 10:00) Na Phos/Na Biphos Enema (Fleet Enema Mo (12/03/21 10:00) Guaifenesin/Codeine Syrup (Robitussin Ac (12/03/21 10:00) Loperamide Tablet (Imodium Tablet) (12/03/21 10:00) Melatonin Tablet (Melatonin Tablet) (12/03/21 10:00) Polyethylene Glycol Powder Pkt (Miralax (12/03/21 21:00) Ondansetron Oral Dissolve Tab (Zofran (12/03/21 10:00) Senna S Tablet (Senokot S Tablet) (12/03/21 21:00) Acetaminophen Tablet/Caplet (Tylenol T (12/03/21 10:00) Code/Resuscitation (12/03/21 09:55) Initiate Admission Nursing Pro .admission (12/03/21 09:55) Admission Arrival Bed Request (12/03/21 11:25) Patient Visit (12/03/21 ) Speech Sound Lang Comp (12/03/21 ) Treat. Speech/Lang/Voice (12/03/21 ) Patient Visit (12/03/21 ) Pt Eval Moderate Complexity (12/03/21 ) Functional Activities, Ea 15 (12/03/21 ) Code/Resuscitation (12/03/21 13:24) Incentive Spirometry (Nursing) Q2H (12/03/21 13:24) Sequential Compression Device (12/03/21 13:24) Sourav Patel (12/03/21 13:24) Telemetry (12/03/21 13:24) (Nf) Semaglutide (Ozempic) (12/03/21 13:30) Acetaminophen Tablet/Caplet (Tylenol T (12/03/21 13:30) Albuterol Pre-Mix Nebs (Rt) (Proventil (12/03/21 13:30) Aspirin Enteric Coated Tablet (Ecotrin T (12/04/21 09:00) Diphenhydramine Injection (Benadryl Inje (12/03/21 13:30) Diphenhydramine Tablet (Benadryl Tablet) (12/03/21 13:30) Citalopram Tablet (Celexa Tablet) (12/03/21 21:00) Docusate Sodium Capsule (Colace Capsule) (12/03/21 21:00) Diclofenac 1% Gel (Voltaren 1% Gel) (12/03/21 18:00) Bisacodyl Suppository (Dulcolax Supposit (12/03/21 13:30) Enoxaparin Injection (Lovenox Injection) (12/03/21 15:00) Lactulose Oral Solution (Enulose Oral So (12/03/21 13:30) Fluticasone Nasal [place] (Flonase Nasal S (12/04/21 09:00) Isosorbide Mononitrate Tablet (Imdur Tab (12/03/21 15:00) Lorazepam Tablet (Ativan Tablet) (12/03/21 13:30) Levothyroxine Tablet (Synthroid Tablet) (12/04/21 07:00) Loratadine Tablet (Claritin Tablet) (12/03/21 21:00) Magnesium Oxide Tablet (Mag Ox Tablet) (12/03/21 18:00) Melatonin Tablet (Melatonin Tablet) (12/03/21 13:30) Magnesium Hydroxide Oral Susp (Mom Oral (12/03/21 13:30) Polyethylene Glycol Powder Pkt (Miralax (12/03/21 13:30) Morphine Injection (Morphine Injection (12/03/21 13:30) Morphine Immediate Release Tab (Morphine (12/03/21 13:30) Antacid Suspension (Mylanta Suspension (12/03/21 13:30) Nitroglycerin 0.4 Mg Btl 25's (Nitrostat (12/03/21 13:30) Ranolazine Er Tablet (Ranexa Er Tablet) (12/03/21 21:00) Rosuvastatin Tablet (Crestor Tablet) (12/03/21 21:00) Sennosides Tablet (Senokot Tablet) (12/03/21 21:00) Therapeutic Multivitamin Tab (Vitamins, (12/04/21 07:00) Calcium Carbonate Chew Tablet (Antacid C (12/03/21 13:30) Acetaminophen Tablet/Caplet (Tylenol T (12/03/21 13:30) Ondansetron Injection (Zofran Injectio (12/03/21 13:30) Ondansetron Oral Dissolve Tab (Zofran (12/03/21 13:30) Amlodipine Tablet (Norvasc Tablet) (12/04/21 09:00) Ezetimibe Tablet (Zetia Tablet) (12/03/21 21:00) Metoprolol Succinate (Xl) Tab (Toprol Xl (12/04/21 09:00) Oxycodone Immediate Rel Tablet (Oxyir Ta (12/03/21 13:30) Trazodone Tablet (Desyrel Tablet) (12/03/21 21:00) Consult Cardiology (12/03/21 13:24) Incentive Spirometry Initial (12/03/21 13:24) Mat Initiate Protocol (12/03/21 13:24) Telemetry Nursing Assessment ( (12/03/21 13:24) Svn Small Volume Nebulizer (12/03/21 13:24) Incentive Spirometry (Nursing) Q2H (12/03/21 13:24) Catheter(Urinary) Discontinue (12/03/21 13:24) General/Regular (12/03/21 Lunch) Patient Visit (12/03/21 ) Exercise Therap, Ea 15 Min (12/03/21 ) Functional Activities, Ea 15 (12/03/21 ) Us Carotid Fito Complete [id number] (12/04/21 ) Patient Visit (12/04/21 ) Gait Training, Ea 15 Min (12/04/21 ) Exercise Therap, Ea 15 Min (12/04/21 ) Functional Activities, Ea 15 (12/04/21 ) Rehab Nursing Orders: Ongoing Assess. of Cognitive Status, Ongoing Assess. of Function Status, Bladder Management, Bladder Scan, Bladder Training, Bowel Management, Bowel Training, Disease Management & Educaiton, DVT Prophylaxis, Fall Prevention, Fluid/Electrolyte/Nutrition Mgmt, Infection Prevention, Medication Management & Education, Management of Risks & Complications, Management of Skin Intergrity, Nutrition Management, Pain Management, Patient/Family Support, Safety Management Intensity of Therapy to be met Patient to be seen: Min.3h per day/5 of 7d PT IPOC Problem List: Activity Tolerance, Functional Strength, Safety, Balance, Gait, Transfer, Bed Mobility, ROM Treatment Plan: Continue Plan of Care Bed Mobility, Education, Functional Activity Jase, Functional Strength, Group Therapy, Gait, Safety, Therapeutic Exercise, Transfers Treatment Duration: Dec 24, 2021 Frequency: At least 5 of 7 days/Wk (IRF) Estimated Hrs Per Day: 1.5 hours per day OT IPOC Problems: Decreased Activ Tolerance, Decreased UE Strength, Impaired Funct Balance, Impaired I ADL's, Impaired Self-Care Skills OT Treatment, Training and Edu: Yes Plan of Care: ADL Retraining, Functional Mobility, Group Exercise/Act as Ind, UE Funct Exercise/Act Treatment Duration: Dec 21, 2021 Frequency: At least 5 of 7 days/Wk (IRF) Estimated Hrs Per Day: 1.[address] IPOC Speech Therapy Treatment Plan: Discontinue ST Treatment Duration: Dec 04, 2021 Frequency: 1 time per week Estimated Hrs Per Day: .5 hour per day [employer] Cake Decorator/Case Mgmt [employer] Cake Decorator/Case Managemen: Discharge Planning Dietitian/Record Press Tender Dietitian/Record Press Tender to monitor nutritional status and make changes and/or recommendations as needed and work with speech pathology on dietary upgrades as the occur. Physician IPOC Medical Issues being managed closely and that require the 24 hour availability of a physician: Recent CVA recurrent in type along with other co-morbidities will require close monitoring for decompensation and expansion of CVA and monitoring of BP along with Cardiology management Medical Issues: Bowel/Bladder Function, DVT Prophylaxis, Falls Precautions, Fluid/Electrolyte/Nutrition Balance, Infection Protection, Pain Management Brief Synthesis of Preadmission Screen, Post-Admission Evaluation, and Therapy Evaluations: PT OT will focus on increasing ambulatory skills along with independence in ADL's in order to prepare for returning home to independence Medical Prognosis: Good Anticipated Length of Stay: 7 days LULU WAGNER DO Dec 04, 2021 06:37
[2021-12-04 07:33] VITALS: BP 144/58
[2021-12-04] MEDS: RANOLAZINE ER 500 MG TAB (RANEXA) PO SCH ×2 (08:17→20:26)
[2021-12-04] MEDS: amLODIPine 2.5MG (NORVASC) TAB PO SCH (08:17)
[2021-12-04] MEDS: MAGNESIUM OXIDE (MAG-OX)400 MG TAB PO SCH ×2 (08:17→17:51)
[2021-12-04] MEDS: ASPIRIN E.C. 81 MG (ECOTRIN) TAB PO SCH (08:17)
--- NOTE | 2021-12-04 08:17 | Progress Note - Cardiology ---
Cardiology SOAP Progress Note Objective: I&O/Vital Signs 12/04/21 12/04/21 12/05/21 12/05/21 20:00 20:00 01:00 07:00 Temp 36.8 Pulse 68 72 67 Resp 20 B/P (MAP) 113/69 (84) Pulse Ox 98 O2 Delivery Room Air Room Air 12/05/21 07:28 Temp 36.4 Pulse 72 Resp 18 B/P (MAP) 114/81 (92) Pulse Ox 93 O2 Delivery Room Air Constitutional: AAO x 3 Respiratory: No accessory muscle use, No respiratory distress; chest expansion is symmetric, chest is bilaterally symmetric, lungs clear to auscultation Cardiovascular: regular rate-rhythm; No JVD; S1 and S2 Gastrointestional: No tender; soft, round, audible bowel sounds Extremities: no lower extremity edema bilateral Neurologic/Psychiatric: grossly intact Skin: No rash on exposed areas, No ulcerations on exposed areas Results/Procedures: Labs A/P: Assessment: CVA - management per stroke team - post status post tPA treatment - She reports still have minimal residual right side weakness (per nurse she reported that her right sided weakness is back to baseline from prior to this event) - Echo on 12-02-21: LVEF 55-60%, PASP WNL - ILR transmissions reviewed on 12-03-21 via [facility] - transmissions have not shown any a-fib/flutter - NSR with PVC's Palpitations - . 24 HR Holter of 08-10-21 showed NSR with av HR 65 bpm. Frequent PVC (PVC burden 0.7%). No VT or SVT or signif trupti - S/P ILR implant on 08-21-21: NSR with isolated PVCs - recent ILR download 12-03-21 shows no evidence of a-fib/flutter - SR with freq PVC's [place] - Sleep study of 08-13-21 showed mild [place] - following with Dr. Mcneil CAD - Card cath and PCI on 03/02/20: Coronary artery disease primarily consisting of 95% ostial stenosis of the left anterior descending to just past origin of large D1 to which successful balloon angioplasty was carried out with reduced the stenosis to less than 30%. Mild plaque in other cors. RCA dominant - Echocardiogram of 03-02-20 showed LVEF 60-65%. PASP 20-25 mmHg - Card cath and PCI on 04/21/20: PTCA for 95% restenosis at site of PTCA in mid LAD, just past D1, reducing the lesion to less than 10% and with normal antegrade flow, LVEDP 12 mmHg, LVEF 50-55% - Cardiac cath on 06-08-[address] Oden: Severe LAD stenosis, transferred to [facility] - Reports cardiac cath with PCI on 06-10-[address] Haywood at [facility] - Card cath on 06/26/20: Patent LAD stent, mild to mod distal CAD, anomalous high origin of RCA and mild diffuse disease of RCA, LVEDP 11 mmHg, LVEF 55-60% - Card cath 12/03/[address] Gomez at [facility] in [place], [place]: showed LAD patent stent in the prox LAD, in the mid LAD there is an 80% stenosis in small vessel not amenable to intervention. Approx 50% stenosis in the prox first diag. LVEF 675%. Medical tx was advised. 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 The vertebral arteries are codominant. The carotid arteries bifurcate midneck without focal stenosis, vessel cut off, or vascular malformation within the neck. The visualized soft tissues are unremarkable. HTN - controlled Scleroderma, - by history - managed by PCP Celiac dz - managed by PCP HLD - statin tx - followed by PCP H/o occular stroke Medication Intolerance/allergy - Reported allergy to ASA (however, she has been taking ASA, per her report, without difficulty) - reports h/o convulsions - Reported shellfish allergy Orthopedic - H/O chronic joint pain d/t arthritis Family h/o - premature CAD (brothers x2 and father) Dizziness and vertigo - managed by pcp Plan: Continue current medication regimen Management of stroke is per stroke team Monitor lab Replace electrolytes as indicated GERARD NOLASCO Dec 04, 2021 08:17
[2021-12-04] MEDS: DOCUSATE SODIUM 100 MG (COLACE) CAP PO SCH ×2 (08:18→19:38)
[2021-12-04] MEDS: polyethylene glycoL POWDER 17 GM (MIRALAX) PACK PO SCH ×2 (08:18→19:38)
[2021-12-04] MEDS: meTOproloL SUCCINATE 50 MG (TOPROL XL) TAB PO SCH (08:18)
[2021-12-04] MEDS: SENNOSIDES 8.6 MG (SENOKOT) TAB PO SCH ×2 (08:18→19:38)
[2021-12-04] MEDS: FLUTICASONE NASAL SPRAY (FLONASE) 16 GM BTL NS SCH (08:18)
--- NOTE | 2021-12-04 09:24 | Occupational Ther Daily Note ---
OT Current Status-Daily Note Subjective Pt alert in recliner. Pt agrees to therapy. No c/o pain at this time. Mental Status/Objective Patient Orientation: Person, Place, Time, Situation Attachments: IV Acute change in mental status: 0 Inattention: 0 Disorganized thinkin Altered level of consciousness: 0 ADL-Treatment Pt independent eating. Pt agrees to shower. Pt ambulated with FWW to toilet, CGA due to R LE weakness. Pt transfers to toilet using grabbars, CGA. Pt independent in toilet hygiene while sitting. Pt CGA while hiking pants over hips. Pt ambulated using FWW to shower bench and transferred using grabbars, CGA. Pt completed 90% of shower in sitting. Pt was CGA, in standing to cleanse buttocks and [place] area. Pt completed oral care independently sitting at sink. After set up pt completed upper body dressing. Pt threaded clothing over feet by self then required CGA to hike over hips. After set up pt completed footwear. Pt ambulated to recliner using FWW, CGA. Pt left in recliner call light/phone in reach all needs met in room. Therapy Code Descriptions/Definitions Functional [place] Measure: 0=Not Assessed/NA 4=Minimal Assistance 1=Total Assistance 5=Supervision or Setup 2=Maximal Assistance 6=Modified [place] 3=Moderate Assistance 7=Complete IndependenceSCALE: Activities may be completed with or without assistive devices. 2-Hyfsdwggmq-trlmlqy completes the activity by him/herself with no assistance from a helper. 5-Set-up or Clean-up Assistance-helper sets up or cleans up; patient completes activity. [place] assists only prior to or following the activity. 4-Supervision or Touching Assistance-helper provides verbal cues and/or touching/steadying and/or contact guard assistance as patient completes activity. Assistance may be provided throughout the activity or intermittently. 3-Partial/Moderate Assistance-helper does LESS THAN HALF the effort. [place] lifts, holds or supports trunk or limbs, but provides less than half the effort. 2-Substantial/Maximal Assistance-helper does MORE THAN HALF the effort. [place] lifts or holds trunk or limbs and provides more than half the effort. 6-Cscqnajpr-dudukk does ALL the effort. Patient does none of the effort to complete the activity. Or, the assistance of 2 or more helpers is required for the patient to complete the activity. If activity was not attempted, code reason: 7-Patient Refused. 9-Not Applicable-not attempted and the patient did not perform the activity before the current illness, exacerbation or injury. 10-Not Attempted due to Environmental Limitations-(lack of equipment, weather restraints, etc.). 88-Not Attempted due to Medical Conditions or Safety Concerns. Eating (QC): 6 Oral Hygiene (QC): 6 Bathing Location: L Arm, R Arm, L Upper Leg, R Upper Leg, L Lower Leg (including foot), R Lower Leg (including foot), Chest, Abdomen, Buttocks, Perineal Area Shower/Bathe Self (QC): 4 Upper Body Dressing (QC): 5 Lower Body Dressing (QC): 4 On/Off Footwear: 5 Toileting Hygiene (QC): 4 Toilet Transfer (QC): 4 Pt required cues to take recovery breaks due to SOA. Other Treatment Pt completed 3 B UE exercises 3 sets 10 reps, with light resistance theraband to strengthen B UE for daily functional tasks. Skilled instruction and verbal cues given throughout exercise. Education OT Patient Education: Exercise program Teaching Recipient: Patient Teaching Methods: Demonstration, Discussion Response to Teaching: Verbalize Understanding, Return Demonstration OT Penitentiary Goals Penitentiary Goals Time Frame: Dec 21, 2021 Acute change in mental status: 0 Inattention: 0 Disorganized thinkin Altered level of consciousness: 0 Eating (QC): 6 Oral Hygiene (QC): 6 Toileting Hygiene (QC): 6 Shower/Bathe Self (QC): 6 Upper Body Dressing (QC): 6 Lower Body Dressing (QC): 6 On/Off Footwear (QC): 6 Additional Goals: 1-Demonstrate ADL Tasks, 2-Verbalize Understanding, 3- ImproveStrength/Jase 1=Demonstrate adherence to instructed precautions during ADL tasks. 2=Patient will verbalize/demonstrate understanding of assistive devices/modifica tions for ADL. 3=Patient will improve strength/tolerance for activity to enable patient to perform ADL's. OT Education/Plan Problem List/Assessment Assessment: Decreased Activ Tolerance, Decreased UE Strength, Impaired Coordination, Impaired Funct Balance, Impaired Self-Care Skills Discharge Recommendations Plan/Recommendations: Continue POC Treatment Plan/Plan of Care Patient would benefit from OT for education, treatment and training to promote independence in ADL's, mobility, safety and/or upper extremity function for ADL's. Plan of Care: ADL Retraining, Functional Mobility, Group Exercise/Act as Ind, UE Funct Exercise/Act Treatment Duration: Dec 21, 2021 Frequency: At least 5 of 7 days/Wk (IRF) Estimated Hrs Per Day: 1.5 hours per day Agreement: Yes Rehab Potential: Good Time/GCodes Start Time: 07:30 Stop Time: 09:00 Total Time Billed (hr/min): 90 Billed Treatment Time 1 visit ADL 5 (75 min) EX 1 (15 min) ELAINE RUIZ Dec 04, 2021 09:24
--- NOTE | 2021-12-04 10:40 | Progress Note - Cardiology ---
Cardiology SOAP Progress Note Subjective: R arm weakness has resolved nearly completely, R leg weakness is improving No cp or palp or syncope or shortness of breath at rest No n/v/d Objective: I&O/Vital Signs 12/04/21 12/04/21 12/04/21 12/04/21 01:00 07:01 07:33 08:00 Temp 36.9 Pulse 71 77 76 Resp 18 B/P (MAP) 144/58 (86) Pulse Ox 95 O2 Delivery Room Air Room Air Constitutional: AAO x 3 Respiratory: No accessory muscle use, No respiratory distress; chest expansion is symmetric, chest is bilaterally symmetric, lungs clear to auscultation Cardiovascular: regular rate-rhythm; No JVD; S1 and S2 Gastrointestional: No tender; soft, round, audible bowel sounds Extremities: no lower extremity edema bilateral Neurologic/Psychiatric: grossly intact Skin: No rash on exposed areas, No ulcerations on exposed areas Results/Procedures: Labs Laboratory Tests 12/04/21 05:24: White Blood Count 6.6, Red Blood Count 3.92, Hemoglobin 12.7, Hematocrit 36, Mean Corpuscular Volume 92, Mean Corpuscular Hemoglobin 32, Mean Corpuscular Hemoglobin Concent 35, Red Cell Distribution Width 12.5, Platelet Count 200, Mean Platelet Volume 9.2, Immature Granulocyte % (Auto) 0, Neutrophils (%) (Auto) 58, Lymphocytes (%) (Auto) 28, Monocytes (%) (Auto) 12, Eosinophils (%) (Auto) 2, Basophils (%) (Auto) 1, Neutrophils # (Auto) 3.8, Lymphocytes # (Auto) 1.8, Monocytes # (Auto) 0.8, Eosinophils # (Auto) 0.2, Basophils # (Auto) 0.0, Immature Granulocyte # (Auto) 0.0, Sodium Level 138, Potassium Level 4.3, Chloride Level 106, Carbon Dioxide Level 24, Anion Gap 8, Blood Urea Nitrogen 15, Creatinine 0.84, Estimat Glomerular Filtration Rate 80, BUN/Creatinine Ratio 18, Glucose Level 101, Calcium Level 8.6, Corrected Calcium 9.1, Total Bilirubin 0.6, Aspartate Amino Transf (AST/SGOT) 16, Alanine Aminotransferase (ALT/SGPT) 18, Alkaline Phosphatase 52, Total Protein 5.7L, Albumin 3.4 Laboratory Tests 12/04/21 05:24 A/P: Assessment: CVA - management per Dr Samaniego - post status post tPA treatment - She reports still have minimal residual right side weakness (per nurse she reported that her right sided weakness is back to baseline from prior to this event) - Echo on 12-02-21: LVEF 55-60%, PASP WNL - ILR transmissions reviewed on 12-03-21 via [facility] - transmissions have not shown any a-fib/flutter - NSR with PVC's Palpitations - 24 HR Holter of 08-10-21 showed NSR with av HR 65 bpm. Frequent PVC (PVC burden 0.7%). No VT or SVT or signif trupti - S/P ILR implant on 08-21-21: NSR with isolated PVCs - recent ILR download 12-03-21 shows no evidence of a-fib/flutter - SR with freq PVC's [place] - Sleep study of 08-13-21 showed mild [place] - following with Dr. Mcneil CAD - Card cath and PCI on 03/02/20: Coronary artery disease primarily consisting of 95% ostial stenosis of the left anterior descending to just past origin of large D1 to which successful balloon angioplasty was carried out with reduced the stenosis to less than 30%. Mild plaque in other cors. RCA dominant - Echocardiogram of 03-02-20 showed LVEF 60-65%. PASP 20-25 mmHg - Card cath and PCI on 04/21/20: PTCA for 95% restenosis at site of PTCA in mid LAD, just past D1, reducing the lesion to less than 10% and with normal antegrade flow, LVEDP 12 mmHg, LVEF 50-55% - Cardiac cath on 06-08-[address] Oden: Severe LAD stenosis, transferred to [facility] - Reports cardiac cath with PCI on 06-10-[address] at [facility] - Card cath on 06/26/20: Patent LAD stent, mild to mod distal CAD, anomalous high origin of RCA and mild diffuse disease of RCA, LVEDP 11 mmHg, LVEF 55-60% - Card cath 12/03/[address] Gomez at [facility] in [place], [place]: showed LAD patent stent in the prox LAD, in the mid LAD there is an 80% stenosis in small vessel not amenable to intervention. Approx 50% stenosis in the prox first diag. LVEF 675%. Medical tx was advised. 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 The vertebral arteries are codominant. The carotid arteries b ifurcate midneck without focal stenosis, vessel cut off, or vascular malformation within the neck. The visualized soft tissues are unremarkable. HTN - controlled Scleroderma, - by history - managed by PCP Celiac dz - managed by PCP HLD - statin tx - followed by PCP H/o occular stroke Medication Intolerance/allergy - Reported allergy to ASA (however, she has been taking ASA, per her report, w ithout difficulty) - reports h/o convulsions - Reported shellfish allergy Orthopedic - H/O chronic joint pain d/t arthritis Family h/o - premature CAD (brothers x2 and father) Dizziness and vertigo - managed by pcp Plan: Monitor lab Replace electrolytes as indicated SERENITY NINO MD FACP FAC CCDS Dec 04, 2021 10:40
--- NOTE | 2021-12-04 10:41 | Physical Therapy Daily Note ---
PT Daily Note-Current Subjective Pt sitting in recliner upon arrival. Pt agrees to PT and reports feeling better everyday. Pain Location: No Pain Reported Section J - Health Conditions 1. Rarely or not at all 2. Occasionally 3. Frequently 4. Almost constantly 8. Unable to answer Pain Effect on Sleep: 1 Pain Interference with Therapy: 1 Pain Interference w/Day-to-Day: 1 Mental Status Patient Orientation: Person, Place, Time, Situation Attachments: Other-See Comments (Telemetry) Transfers SCALE: Activities may be completed with or without assistive devices. 4-Umwvyueszl-ixjwljg completes the activity by him/herself with no assistance from a helper. 5-Set-up or Clean-up Assistance-helper sets up or cleans up; patient completes activity. [place] assists only prior to or following the activity. 4-Supervision or Touching Assistance-helper provides verbal cues and/or touching/steadying and/or contact guard assistance as patient completes activity. Assistance may be provided throughout the activity or intermittently. 3-Partial/Moderate Assistance-helper does LESS THAN HALF the effort. [place] lifts, holds or supports trunk or limbs, but provides less than half the effort. 2-Substantial/Maximal Assistance-helper does MORE THAN HALF the effort. [place] lifts or holds trunk or limbs and provides more than half the effort. 8-Jyobhhyny-fizfkp does ALL the effort. Patient does none of the effort to complete the activity. Or, the assistance of 2 or more helpers is required for the patient to complete the activity. If activity was not attempted, code reason: 7-Patient Refused. 9-Not Applicable-not attempted and the patient did not perform the activity be fore the current illness, exacerbation or injury. 10-Not Attempted due to Environmental Limitations-(lack of equipment, weather restraints, etc.). 88-Not Attempted due to Medical Conditions or Safety Concerns. Sit to Stand (QC): 5 Toilet Transfer (QC): 5 Weight Bearing Full Weight Bearing Full Weight Bearing Gait Training Does the Patient Walk?: Yes Distance: 350' Walk 10 feet (QC): 5 Walk 50 ft with 2 Turns(QC): 5 Walk 150 ft (QC): 5 Gait Assistive Device: FWW Wheelchair Training Does the Pt Use a Wheelchair?: No Exercises Standing: Hip Abduction, Heel/toe raises, 3 way Ex=Flex, Abd, Ext, Marching, Mini squats, Weight shifts Standing Reps: 15 NuStep Minutes: 15 NuStep Workload: 4 Treatments TF to standing after Nurse applies Telemetry and completes Stroke screening. Pt uses BR then amb in hallway. Pt uses NuStep then completes Standing Ex at //bars. Pt amb. in hallway extended distance before returning to room to rest in recliner. All needs met, call light in hand. Assessment Current Status: Good Progress PT Short Term Goals Short Term Goals Time Frame: Dec 10, 2021 Roll Left & Right: 6 Sit to lyin Lying to sitting on side of be: 6 Sit to stand: 4 (SBA) Chair/gps-ot-oktqa transfer: 4 (SBA) Walk 10 feet: 4 (SBA) Walk 50 feet with two turns: 4 (SBA) Walk 150 feet: 4 (SBA) PT Food And Beverage Server Goals Food And Beverage Server Goals PT Retirement Goals Time Frame: Dec 24, 2021 Roll Left & Right (QC): 6 Sit to Lying (QC): 6 Lying-Sitting on Side/Bed(QC): 6 Sit to Stand (QC): 6 Chair/Mpm-hj-Mnhsl Xfer(QC): 6 Toilet Transfer (QC): 6 Car Transfer (QC): 6 Does the Patient Walk: Yes Walk 10 feet (QC): 6 Walk 50ft with 2 Turns (QC): 6 Walk 150 ft (QC): 6 Walking 10ft on Uneven Surface: 6 1 Step (curb) (QC): 4 (SBA) 4 Steps (QC): 4 (SBA) 12 Steps (QC): 4 (SBA) Picking up an Object (QC): 4 (SBA using handtools repairer) Wheel 50 feet with 2 turns (QC: 9 Wheel 150 feet: 9 PT Plan Problem List Problem List: Activity Tolerance Treatment/Plan Treatment Plan: Continue Plan of Care Treatment Plan: Bed Mobility, Education, Functional Activity Jase, Functional Strength, Group Therapy, Gait, Safety, Therapeutic Exercise, Transfers Treatment Duration: Dec 24, 2021 Frequency: At least 5 of 7 days/Wk (IRF) Estimated Hrs Per Day: 1.5 hours per day Patient and/or Family Agrees t: Yes Safety Risks/Education Patient Education: Correct Positioning Teaching Recipient: Patient Teaching Methods: Demonstration, Discussion Response to Teaching: Verbalize Understanding, Return Demonstration Time/GCodes Time In: 915 Time Out: 1045 Total Billed Treatment Time: 90 Total Billed Treatment 1, GT x2 (30m), EX x3 (45m) & FA (15m) MONICA CRABTREE CAN FILLING AND CLOSING MACHINE TENDER Dec 04, 2021 10:41
[2021-12-04 10:42] VITALS: BP 112/64
[2021-12-04] MEDS: ISOSORBIDE MONONITRATE 30 MG (IMDUR) TAB PO SCH (15:28)
--- NOTE | 2021-12-04 15:50 | Diagnostic Imaging Report ---
PROCEDURE: US carotid duplex, bilateral. TECHNIQUE: Multiple real-time grayscale images were obtained over the carotid arteries in various projections, bilaterally. Additional spectral analysis and color Doppler duplex images were also obtained. INDICATION: Neurologic deficit, CVA. FINDINGS: There is minimal atherosclerotic plaque seen in the carotid bifurcation. There is no significant alteration of the waveforms or velocities on either side. Both vertebral arteries are patent with antegrade flow. IMPRESSION: Mild atherosclerotic plaque at both carotid bifurcations. There is no hemodynamically significant stenosis. Parameters based on the consensus panel Velazquez-Scale and Doppler ultrasound criteria published January 2003, Radiology, Volume 229. DOPPLER (peak systolic velocity M/S Right Left CCA .70 .72 ICA Proximal .51 .58 ICA Mid .58 .65 ICA Distal .43 1.0 RATIO .83 1.4 ECA .91 .82 VERT .68 .41 Dictated by: Dictated on workstation # [id number]
[2021-12-04 20:00] VITALS: BP 113/69
[2021-12-04] MEDS: ACETAMINOPHEN 325 MG TABLET PO PRN (20:25)
[2021-12-04] MEDS: eZETimibe 10 MG (ZETIA) TABLET PO SCH (20:25)
[2021-12-04] MEDS: diphenhydrAMINE 25 MG TAB (BENADRYL) PO PRN (20:25)
[2021-12-04] MEDS: traZODone 50 MG (DESYREL) TAB PO SCH (20:25)
[2021-12-04] MEDS: LORATADINE (CLARITIN) 10 MG TAB PO SCH (20:26)
[2021-12-04] MEDS: ROSUVASTATIN 20 MG (CRESTOR) TABLET PO SCH (20:26)
[2021-12-05] MEDS: DICLOFENAC 1% GEL 100 GM (VOLTAREN) TUBE TP SCH ×4 (00:06→16:23)
[2021-12-05] MEDS: ENOXAPARIN 100 MG/1 ML (LOVENOX) SYR SC SCH ×2 (03:48→16:22)
[2021-12-05] MEDS: LEVOTHYROXINE 50 MCG (LEVOTHROID) TAB PO SCH (06:13)
[2021-12-05] MEDS: MULTIVIT W/MINERALS TAB (THERAGRAN M) PO SCH (06:13)
--- NOTE | 2021-12-05 06:31 | PM&R Progress Note ---
Subjective HPI/CC On Admission Date Seen by Provider: Dec 05, 2021 Time Seen by Provider: 08:30 Subjective/Events-last exam 12/05/2021: No major issues Walking around really well No other concerns 12/04/2021: Pt is doing really well No major issues Bowels are moving No falls Checked meds and labs Right sided weakness remains Review of Systems General: Fatigue Objective Exam Vital Signs Vital Signs Date Time Temp Pulse Resp B/P (MAP) Pulse Ox O2 Delivery O2 Flow Rate FiO2 12/06/21 00:32 63 12/05/21 20:48 36.5 20 112/67 (82) 95 Room Air Capillary Refill : General Appearance: No Apparent Distress, WD/WN, Chronically ill, Obese HEENT: PERRL/EOMI, Normal ENT Inspection, Pharynx Normal Neck: Full Range of Motion, Normal Inspection, Non Tender, Supple, Carotid Bruit Respiratory: Chest Non Tender, Lungs Clear, Normal Breath Sounds, No Accessory Muscle Use, No Respiratory Distress Cardiovascular: Regular Rate, Rhythm, No Edema, No Gallop, No JVD, No Murmur, Normal Peripheral Pulses Gastrointestinal: Normal Bowel Sounds, No Organomegaly, No Pulsatile Mass, Non Tender, Soft Back: Normal Inspection, No CVA Tenderness, No Vertebral Tenderness Extremity: Normal Capillary Refill, Normal Inspection, Normal Range of Motion, Non Tender, No Calf Tenderness, No Pedal Edema Neurologic/Psychiatric: Alert, Oriented x3, field service rep II-XII Norm as Tested, Abnormal Gait, Depressed Affect, Motor Weakness (Right-sided weakness 4/5 upper extremity and 3/5 lower extremity) Skin: Normal Color, Warm/Dry Lymphatic: No Adenopathy Results/Procedures Lab Patient resulted labs reviewed. FIM Transfers Therapy Code Descriptions/Definitions Functional [place] Measure: 0=Not Assessed/NA 4=Minimal Assistance 1=Total Assistance 5=Supervision or Setup 2=Maximal Assistance 6=Modified [place] 3=Moderate Assistance 7=Complete IndependenceSCALE: Activities may be completed with or without assistive devices. 0-Pvzlfvodzq-umuxshf completes the activity by him/herself with no assistance from a helper. 5-Set-up or Clean-up Assistance-helper sets up or cleans up; patient completes activity. [place] assists only prior to or following the activity. 4-Supervision or Touching Assistance-helper provides verbal cues and/or touchin g/steadying and/or contact guard assistance as patient completes activity. Assistance may be provided throughout the activity or intermittently. 3-Partial/Moderate Assistance-helper does LESS THAN HALF the effort. [place] lifts, holds or supports trunk or limbs, but provides less than half the effort. 2-Substantial/Maximal Assistance-helper does MORE THAN HALF the effort. [place] lifts or holds trunk or limbs and provides more than half the effort. 9-Yhlcqqzdw-kwxhju does ALL the effort. Patient does none of the effort to complete the activity. Or, the assistance of 2 or more helpers is required for the patient to complete the activity. If activity was not attempted, code reason: 7-Patient Refused. 9-Not Applicable-not attempted and the patient did not perform the activity before the current illness, exacerbation or injury. 10-Not Attempted due to Environmental Limitations-(lack of equipment, weather restraints, etc.). 88-Not Attempted due to Medical Conditions or Safety Concerns. Roll Left to Right (QC): 6 Sit to Lying (QC): 4 Sit to Stand (QC): 5 Chair/Rnx-ul-Upqhu Xfer(QC): 4 Car Transfer (QC): 4 Gait Training Does the Patient Walk?: Yes Distance: 350' Walk 10 feet (QC): 5 Walk 50 ft with 2 Turns(QC): 5 Walk 150 ft (QC): 5 Walking 10ft/uneven surface-QC: 4 Gait Persons Needed: 1 Gait Assistive Device: FWW Wheelchair Training Does the Pt Use a Wheelchair?: No Wheel 50 ft with 2 turns (QC): 9 Wheel 150 ft (QC): 9 Type of Wheelchair: N/A Stair Training #of Steps: 1 1 Step (curb) (QC): 4 4 Steps (QC): 88 12 Steps (QC): 88 Balance Picking up an Object (QC): 4 (SBA using a fence setter) ADL-Treatment Eating (QC): 6 Oral Hygiene (QC): 6 Bathing Location: L Arm, R Arm, L Upper Leg, R Upper Leg, L Lower Leg (including foot), R Lower Leg (including foot), Chest, Abdomen, Buttocks, Perineal Area Shower/Bathe Self (QC): 4 Upper Body Dressing (QC): 5 Lower Body Dressing (QC): 4 On/Off Footwear (QC): 5 Toileting Hygiene (QC): 4 Toilet Transfer (QC): 4 Assessment/Plan Assessment and Plan Assess & Plan/Chief Complaint Assessment: 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 Obesity Rheumatoid arthritis Plan: Aggressive rehab Supportive care Pain control DC Mata 12/04/2021: Tely Monitor closely 12/05/2021: Supportive care (1) CVA (cerebral vascular accident) (2) History of coronary artery disease Status: Acute (3) HLD (hyperlipidemia) Status: Chronic (4) HTN (hypertension) Status: Chronic (5) Obesity Status: Chronic LULU WAGNER DO Dec 05, 2021 06:31
[2021-12-05 07:28] VITALS: BP 114/81
[2021-12-05] MEDS: SENNOSIDES 8.6 MG (SENOKOT) TAB PO SCH ×2 (08:29→20:22)
[2021-12-05] MEDS: DOCUSATE SODIUM 100 MG (COLACE) CAP PO SCH ×2 (08:29→20:21)
[2021-12-05] MEDS: polyethylene glycoL POWDER 17 GM (MIRALAX) PACK PO SCH ×2 (08:29→20:21)
[2021-12-05] MEDS: FLUTICASONE NASAL SPRAY (FLONASE) 16 GM BTL NS SCH (08:57)
[2021-12-05] MEDS: amLODIPine 2.5MG (NORVASC) TAB PO SCH (08:57)
[2021-12-05] MEDS: MAGNESIUM OXIDE (MAG-OX)400 MG TAB PO SCH ×2 (08:57→16:22)
[2021-12-05] MEDS: RANOLAZINE ER 500 MG TAB (RANEXA) PO SCH ×2 (08:57→20:20)
[2021-12-05] MEDS: ASPIRIN E.C. 81 MG (ECOTRIN) TAB PO SCH (08:57)
[2021-12-05] MEDS: meTOproloL SUCCINATE 50 MG (TOPROL XL) TAB PO SCH (08:57)
--- NOTE | 2021-12-05 09:02 | Occupational Ther Daily Note ---
OT Current Status-Daily Note Subjective Pt alert in recliner finishing breakfast. Pt agrees to therapy. Pt states R UE is sore and hard to use. Mental Status/Objective Patient Orientation: Person, Place, Time, Situation Attachments: IV Acute change in mental status: 0 Inattention: 0 Disorganized thinkin Altered level of consciousness: 0 ADL-Treatment Pt independent in eating. Pt ambulated to toilet using FWW, CGA due to R leg weakness and safety precautions. Pt transferred to toilet using grabbars, CGA. Pt CGA in toilet hygiene. Pt ambulated with FWW to sink, CGA. Pt independent in oral care/personal hygiene sitting at sink. Pt ambulated with FWW to therapy gym, CGA. Therapy Code Descriptions/Definitions Functional [place] Measure: 0=Not Assessed/NA 4=Minimal Assistance 1=Total Assistance 5=Supervision or Setup 2=Maximal Assistance 6=Modified [place] 3=Moderate Assistance 7=Complete IndependenceSCALE: Activities may be completed with or without assistive devices. 4-Zcjjuytvue-wgputmk completes the activity by him/herself with no assistance from a helper. 5-Set-up or Clean-up Assistance-helper sets up or cleans up; patient completes activity. [place] assists only prior to or following the activity. 4-Supervision or Touching Assistance-helper provides verbal cues and/or touching/steadying and/or contact guard assistance as patient completes activity. Assistance may be provided throughout the activity or intermittently. 3-Partial/Moderate Assistance-helper does LESS THAN HALF the effort. [place] lifts, holds or supports trunk or limbs, but provides less than half the effort. 2-Substantial/Maximal Assistance-helper does MORE THAN HALF the effort. [place] lifts or holds trunk or limbs and provides more than half the effort. 1-Ghaduhtin-vtvvig does ALL the effort. Patient does none of the effort to complete the activity. Or, the assistance of 2 or more helpers is required for the patient to complete the activity. If activity was not attempted, code reason: 7-Patient Refused. 9-Not Applicable-not attempted and the patient did not perform the activity before the current illness, exacerbation or injury. 10-Not Attempted due to Environmental Limitations-(lack of equipment, weather restraints, etc.). 88-Not Attempted due to Medical Conditions or Safety Concerns. Eating (QC): 6 Oral Hygiene (QC): 6 Toileting Hygiene (QC): 4 Toilet Transfer (QC): 4 Pt completed 10 min arm bike with 25 bethea resistance to increase strength in B UE for ADL's. 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 Pt completed fine/gross motor tasks in standing to work on dynamic standing balance and standing stamina. Pt ambulated with FWW to recliner, [facility], due to R LE weakness and safety. Pt left in recliner call light/phone in reach. All needs met in room. OT Intermediate Goals Pmo Analyst Goals Time Frame: Dec 21, 2021 Acute change in mental status: 0 Inattention: 0 Disorganized thinkin Altered level of consciousness: 0 Eating (QC): 6 Oral Hygiene (QC): 6 Toileting Hygiene (QC): 6 Shower/Bathe Self (QC): 6 Upper Body Dressing (QC): 6 Lower Body Dressing (QC): 6 On/Off Footwear (QC): 6 Additional Goals: 1-Demonstrate ADL Tasks, 2-Verbalize Understanding, 3- ImproveStrength/Jase 1=Demonstrate adherence to instructed precautions during ADL tasks. 2=Patient will verbalize/demonstrate understanding of assistive devices/modifications for ADL. 3=Patient will improve strength/tolerance for activity to enable patient to perform ADL's. OT Education/Plan Problem List/Assessment Assessment: Decreased Activ Tolerance, Decreased Safety Aware, Decreased UE Strength, Impaired Coordination, Impaired Funct Balance Discharge Recommendations Plan/Recommendations: Continue POC Treatment Plan/Plan of Care Patient would benefit from OT for education, treatment and training to promote independence in ADL's, mobility, safety and/or upper extremity function for ADL's. Plan of Care: ADL Retraining, Functional Mobility, Group Exercise/Act as Ind, UE Funct Exercise/Act Treatment Duration: Dec 21, 2021 Frequency: At least 5 of 7 days/Wk (IRF) Estimated Hrs Per Day: 1.5 hours per day Agreement: Yes Rehab Potential: Good Time/GCodes Start Time: 07:30 Stop Time: 09:00 Total Time Billed (hr/min): 90 Billed Treatment Time 1 visit ADL 2 (30 min) EX 4 (60 min) ELAINE RUIZ Dec 05, 2021 09:02
--- NOTE | 2021-12-05 10:45 | Physical Therapy Daily Note ---
PT Daily Note-Current Subjective Pt sitting in recliner in room upon arrival. Pt agrees to PT. Pain Location: No Pain Reported Section J - Health Conditions 1. Rarely or not at all 2. Occasionally 3. Frequently 4. Almost constantly 8. Unable to answer Pain Effect on Sleep: 1 Pain Interference with Therapy: 1 Pain Interference w/Day-to-Day: 1 Mental Status Patient Orientation: Person, Place, Time, Situation Transfers SCALE: Activities may be completed with or without assistive devices. 9-Ylpukygfin-vqjxnnf completes the activity by him/herself with no assistance from a helper. 5-Set-up or Clean-up Assistance-helper sets up or cleans up; patient completes activity. [place] assists only prior to or following the activity. 4-Supervision or Touching Assistance-helper provides verbal cues and/or to uching/steadying and/or contact guard assistance as patient completes activity. Assistance may be provided throughout the activity or intermittently. 3-Partial/Moderate Assistance-helper does LESS THAN HALF the effort. [place] lifts, holds or supports trunk or limbs, but provides less than half the effort. 2-Substantial/Maximal Assistance-helper does MORE THAN HALF the effort. [place] lifts or holds trunk or limbs and provides more than half the effort. 3-Qkcgcotpi-agxgpe does ALL the effort. Patient does none of the effort to complete the activity. Or, the assistance of 2 or more helpers is required for the patient to complete the activity. If activity was not attempted, code reason: 7-Patient Refused. 9-Not Applicable-not attempted and the patient did not perform the activity before the current illness, exacerbation or injury. 10-Not Attempted due to Environmental Limitations-(lack of equipment, weather restraints, etc.). 88-Not Attempted due to Medical Conditions or Safety Concerns. Sit to Stand (QC): 6 Toilet Transfer (QC): 6 Weight Bearing Full Weight Bearing Full Weight Bearing Gait Training Does the Patient Walk?: Yes Distance: 350' Walk 10 feet (QC): 6 Walk 50 ft with 2 Turns(QC): 6 Walk 150 ft (QC): 5 Gait Assistive Device: FWW Stair Training Stair Training: Handrails/: 1 handrail #of Steps: 8 1 Step (curb) (QC): 5 4 Steps (QC): 5 Stairs: Pattern: Step to Exercises Standing: Hip Abduction, Heel/toe raises, 3 way Ex=Flex, Abd, Ext, Marching, Mini squats, Weight shifts NuStep Minutes: 15 NuStep Workload: 5 Treatments TF to standing and uses BR. Pt amb. in hallway then uses NuStep followed by RB. Pt completes Standing EX at //bars then completes 1 set of stairs w/2 hand rails then 2nd set w/R hand rail ascending. Pt amb. in hallway then returns to room to rest in recliner. GRECIA gayle. All needs met, call light in hand. Assessment Current Status: Good Progress Pt is improving with strength, activity tolerance and awareness of fatigue level. PT Short Term Goals Short Term Goals Time Frame: Dec 10, 2021 Roll Left & Right: 6 Sit to lyin Lying to sitting on side of be: 6 Sit to stand: 4 (SBA) Chair/dxv-pt-zziwp transfer: 4 (SBA) Walk 10 feet: 4 (SBA) Walk 50 feet with two turns: 4 (SBA) Walk 150 feet: 4 (SBA) PT Fur Sewer Goals Retirement Goals PT Retirement Goals Time Frame: Dec 24, 2021 Roll Left & Right (QC): 6 Sit to Lying (QC): 6 Lying-Sitting on Side/Bed(QC): 6 Sit to Stand (QC): 6 Chair/Kud-ut-Nmoad Xfer(QC): 6 Toilet Transfer (QC): 6 Car Transfer (QC): 6 Does the Patient Walk: Yes Walk 10 feet (QC): 6 Walk 50ft with 2 Turns (QC): 6 Walk 150 ft (QC): 6 Walking 10ft on Uneven Surface: 6 1 Step (curb) (QC): 4 (SBA) 4 Steps (QC): 4 (SBA) 12 Steps (QC): 4 (SBA) Picking up an Object (QC): 4 (SBA using outside collector) Wheel 50 feet with 2 turns (QC: 9 Wheel 150 feet: 9 PT Plan Treatment/Plan Treatment Plan: Continue Plan of Care Treatment Plan: Bed Mobility, Education, Functional Activity Jase, Functional Strength, Group Therapy, Gait, Safety, Therapeutic Exercise, Transfers Treatment Duration: Dec 24, 2021 Frequency: At least 5 of 7 days/Wk (IRF) Estimated Hrs Per Day: 1.5 hours per day Patient and/or Family Agrees t: Yes Safety Risks/Education Patient Education: Gait Training, Steps, Correct Positioning, Safety Issues Teaching Recipient: Patient Teaching Methods: Discussion Response to Teaching: Verbalize Understanding Time/GCodes Time In: 900 Time Out: 1030 Total Billed Treatment Time: 90 Total Billed Treatment 1, GT x2 (30m), EX x2 (30m) & FA x2 (30m) MONICA CRABTREE CONGRESSIONAL REPRESENTATIVE Dec 05, 2021 10:45
--- NOTE | 2021-12-05 13:58 | Progress Note - Cardiology ---
Cardiology SOAP Progress Note Subjective: No cp or palp or syncope or shortness of breath No n/v/d Gen weakness and malaise improving R-sided weakness improving Objective: I&O/Vital Signs 12/05/21 12/05/21 12/05/21 12/05/21 07:00 07:28 09:07 13:00 Temp 36.4 Pulse 67 72 67 Resp 18 B/P (MAP) 114/81 (92) Pulse Ox 93 O2 Delivery Room Air Room Air Constitutional: AAO x 3 Respiratory: No accessory muscle use, No respiratory distress; chest expansion is symmetric, chest is bilaterally symmetric, lungs clear to auscultation Cardiovascular: regular rate-rhythm; No JVD; S1 and S2 Gastrointestional: No tender; soft, round, audible bowel sounds Extremities: no lower extremity edema bilateral Neurologic/Psychiatric: other (moves all limbs equally) Skin: No rash on exposed areas, No ulcerations on exposed areas A/P: Assessment: CVA - management per Dr Samaniego - post status post tPA treatment - She reports still have minimal residual right side weakness (per nurse she reported that her right sided weakness is back to baseline from prior to this event) - Echo on 12-02-21: LVEF 55-60%, PASP WNL - ILR transmissions reviewed on 12-03-21 via [facility] - transmissions have not shown any a-fib/flutter - NSR with PVC's Palpitations - 24 HR Holter of 08-10-21 showed NSR with av HR 65 bpm. Frequent PVC (PVC burden 0.7%). No VT or SVT or signif trupti - S/P ILR implant on 08-21-21: NSR with isolated PVCs - recent ILR download 12-03-21 shows no evidence of a-fib/flutter - SR with freq PVC's [place] - Sleep study of 08-13-21 showed mild [place] - following with Dr. Mcneil CAD - Card cath and PCI on 03/02/20: Coronary artery disease primarily consisting of 95% ostial stenosis of the left anterior descending to just past origin of large D1 to which successful balloon angioplasty was carried out with reduced the stenosis to less than 30%. Mild plaque in other cors. RCA dominant - Echocardiogram of 03-02-20 showed LVEF 60-65%. PASP 20-25 mmHg - Card cath and PCI on 04/21/20: PTCA for 95% restenosis at site of PTCA in mid LAD, just past D1, reducing the lesion to less than 10% and with normal antegrade flow, LVEDP 12 mmHg, LVEF 50-55% - Cardiac cath on 06-08-[address] Oden: Severe LAD stenosis, transferred to [facility] - Reports cardiac cath with PCI on 06-10-[address] 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 Gomez at [facility] in [place], [place]: showed LAD patent stent in the prox LAD, in the mid LAD there is an 80% stenosis in small vessel not amenable to intervention. Approx 50% stenosis in the prox first diag. LVEF 675%. Medical tx was advised. 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 The vertebral arteries are codominant. The carotid arteries bifurcate midneck without focal stenosis, vessel cut off, or vascular malformation within the neck. The visualized soft tissues are unremarkable. HTN - controlled Scleroderma, - by history - managed by PCP Celiac dz - managed by PCP HLD - statin tx - followed by PCP H/o occular stroke Medication Intolerance/allergy - Reported allergy to ASA (however, she has been taking ASA, per her report, without difficulty) - reports h/o convulsions - Reported shellfish allergy Orthopedic - H/O chronic joint pain d/t arthritis Family h/o - premature CAD (brothers x2 and father) Dizziness and vertigo - managed by pcp Plan: Monitor lab Replace electrolytes as indicated [facility] CCDS Dec 05, 2021 13:58
[2021-12-05] MEDS: ISOSORBIDE MONONITRATE 30 MG (IMDUR) TAB PO SCH (16:22)
[2021-12-05] MEDS: diphenhydrAMINE 2% 30 GM CR (ALLERGY CREAM) TOP PRN (19:21)
[2021-12-05] MEDS: ACETAMINOPHEN 325 MG TABLET PO PRN (20:20)
[2021-12-05] MEDS: ROSUVASTATIN 20 MG (CRESTOR) TABLET PO SCH (20:20)
[2021-12-05] MEDS: diphenhydrAMINE 25 MG TAB (BENADRYL) PO PRN (20:20)
[2021-12-05] MEDS: eZETimibe 10 MG (ZETIA) TABLET PO SCH (20:20)
[2021-12-05] MEDS: LORATADINE (CLARITIN) 10 MG TAB PO SCH (20:21)
[2021-12-05] MEDS: traZODone 50 MG (DESYREL) TAB PO SCH (20:21)
[2021-12-05 20:48] VITALS: BP 112/67
[2021-12-06] MEDS: DICLOFENAC 1% GEL 100 GM (VOLTAREN) TUBE TP SCH ×4 (00:59→18:44)
[2021-12-06] MEDS: ENOXAPARIN 100 MG/1 ML (LOVENOX) SYR SC SCH ×2 (03:02→16:31)
[2021-12-06] MEDS: MULTIVIT W/MINERALS TAB (THERAGRAN M) PO SCH (06:25)
[2021-12-06] MEDS: LEVOTHYROXINE 50 MCG (LEVOTHROID) TAB PO SCH (06:25)
[2021-12-06 07:54] VITALS: BP 134/63
[2021-12-06] MEDS: meTOproloL SUCCINATE 50 MG (TOPROL XL) TAB PO SCH (07:58)
[2021-12-06] MEDS: RANOLAZINE ER 500 MG TAB (RANEXA) PO SCH ×2 (07:58→20:07)
[2021-12-06] MEDS: amLODIPine 2.5MG (NORVASC) TAB PO SCH (07:58)
[2021-12-06] MEDS: ASPIRIN E.C. 81 MG (ECOTRIN) TAB PO SCH (07:58)
[2021-12-06] MEDS: MAGNESIUM OXIDE (MAG-OX)400 MG TAB PO SCH ×2 (07:58→16:32)
[2021-12-06] MEDS: polyethylene glycoL POWDER 17 GM (MIRALAX) PACK PO SCH ×2 (07:59→20:08)
[2021-12-06] MEDS: FLUTICASONE NASAL SPRAY (FLONASE) 16 GM BTL NS SCH (07:59)
--- NOTE | 2021-12-06 09:01 | Occupational Ther Daily Note ---
OT Current Status-Daily Note Subjective Pt alert in recliner. Pt agrees to therapy. No c/o pain at this time. Mental Status/Objective Patient Orientation: Person, Place, Time, Situation Attachments: IV Acute change in mental status: 0 Inattention: 0 Disorganized thinkin Altered level of consciousness: 0 ADL-Treatment Pt independent eating. Pt agrees to shower. Pt ambulated with FWW to toilet, CGA due to LOB. Pt transfers to toilet using grabbars, SBA for safety. Pt independent in toilet hygiene while sitting. Pt SBA while hiking pants over hips. Pt ambulated using FWW to shower bench and transferred using grabbars, SBA. Pt completed 100% of shower in sitting. Pt completed oral care independently sitting at sink. After set up pt completed upper body dressing. Pt threaded clothing over feet by self then required CGA, due to LOB to hike over hips. Pt independent footwear. Pt ambulated to recliner using FWW, SBA. Pt continues to require education cues due to impulsively standing and moving when dizziness occurs, 3 LOB during session. Pt hyperverbal to the point of making self dizzy/ SOA. Pt left in recliner call light/phone in reach all needs met in room. Therapy Code Descriptions/Definitions Functional [place] Measure: 0=Not Assessed/NA 4=Minimal Assistance 1=Total Assistance 5=Supervision or Setup 2=Maximal Assistance 6=Modified [place] 3=Moderate Assistance 7=Complete IndependenceSCALE: Activities may be completed with or without assistive devices. 1-Znvgsellba-fuertyc completes the activity by him/herself with no assistance from a helper. 5-Set-up or Clean-up Assistance-helper sets up or cleans up; patient completes activity. [place] assists only prior to or following the activity. 4-Supervision or Touching Assistance-helper provides verbal cues and/or touching/steadying and/or contact guard assistance as patient completes activity. Assistance may be provided throughout the activity or intermittently. 3-Partial/Moderate Assistance-helper does LESS THAN HALF the effort. [place] lifts, holds or supports trunk or limbs, but provides less than half the effort. 2-Substantial/Maximal Assistance-helper does MORE THAN HALF the effort. [place] lifts or holds trunk or limbs and provides more than half the effort. 8-Vqbcqknkw-njtsms does ALL the effort. Patient does none of the effort to complete the activity. Or, the assistance of 2 or more helpers is required for the patient to complete the activity. If activity was not attempted, code reason: 7-Patient Refused. 9-Not Applicable-not attempted and the patient did not perform the activity before the current illness, exacerbation or injury. 10-Not Attempted due to Environmental Limitations-(lack of equipment, weather restraints, etc.). 88-Not Attempted due to Medical Conditions or Safety Concerns. Eating (QC): 6 Oral Hygiene (QC): 6 Bathing Location: L Arm, R Arm, L Upper Leg, R Upper Leg, L Lower Leg (including foot), R Lower Leg (including foot), Chest, Abdomen, Buttocks, Perineal Area Shower/Bathe Self (QC): 4 Upper Body Dressing (QC): 5 Lower Body Dressing (QC): 4 On/Off Footwear: 6 Toileting Hygiene (QC): 4 Toilet Transfer (QC): 4 Other Treatment Pt completed fine/gross motor task with cognition component, 2lb weights on wrists to strengthen B UE for daily functional tasks. Pt required verbal cues throughout task and skilled instruction to use both hands. 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 Education OT Patient Education: Safety issues Teaching Recipient: Patient Teaching Methods: Demonstration, Discussion Response to Teaching: Verbalize Understanding, Return Demonstration OT Half-Way Goals Half-Way Goals Time Frame: Dec 21, 2021 Acute change in mental status: 0 Inattention: 0 Disorganized thinkin Altered level of consciousness: 0 Eating (QC): 6 Oral Hygiene (QC): 6 Toileting Hygiene (QC): 6 Shower/Bathe Self (QC): 6 Upper Body Dressing (QC): 6 Lower Body Dressing (QC): 6 On/Off Footwear (QC): 6 Additional Goals: 1-Demonstrate ADL Tasks, 2-Verbalize Understanding, 3- ImproveStrength/Jase 1=Demonstrate adherence to instructed precautions during ADL tasks. 2=Patient will verbalize/demonstrate understanding of assistive devices/modifications for ADL. 3=Patient will improve strength/tolerance for activity to enable patient to perform ADL's. OT Education/Plan Problem List/Assessment Assessment: Decreased Safety Aware, Decreased UE Strength, Impaired Coordination, Impaired Funct Balance Discharge Recommendations Plan/Recommendations: Continue POC Treatment Plan/Plan of Care Patient would benefit from OT for education, treatment and training to promote independence in ADL's, mobility, safety and/or upper extremity function for ADL's. Plan of Care: ADL Retraining, Functional Mobility, Group Exercise/Act as Ind, UE Funct Exercise/Act Treatment Duration: Dec 21, 2021 Frequency: At least 5 of 7 days/Wk (IRF) Estimated Hrs Per Day: 1.5 hours per day Agreement: Yes Rehab Potential: Good Time/GCodes Start Time: 07:30 Stop Time: 09:00 Total Time Billed (hr/min): 90 Billed Treatment Time 1 visit ADL 4 (60 min) EX 2 (30 min) ELAINE RUIZ Dec 06, 2021 09:01
[2021-12-06] MEDS: DOCUSATE SODIUM 100 MG (COLACE) CAP PO SCH ×2 (09:09→20:08)
[2021-12-06] MEDS: SENNOSIDES 8.6 MG (SENOKOT) TAB PO SCH ×2 (09:09→20:08)
[2021-12-06] MEDS: diphenhydrAMINE 2% 30 GM CR (ALLERGY CREAM) TOP PRN (09:18)
--- NOTE | 2021-12-06 11:00 | Physical Therapy Daily Note ---
PT Daily Note-Current Subjective Very pleasant and motivated, agrees to Rx. No c/o pain Pain Location: No Pain Reported Section J - Health Conditions 1. Rarely or not at all 2. Occasionally 3. Frequently 4. Almost constantly 8. Unable to answer Pain Effect on Sleep: 1 Pain Interference with Therapy: 1 Pain Interference w/Day-to-Day: 1 Mental Status Patient Orientation: Normal For Age Attachments: Other-See Comments (telemetry) Transfers SCALE: Activities may be completed with or without assistive devices. 5-Mmuodekobh-setttbl completes the activity by him/herself with no assistance from a helper. 5-Set-up or Clean-up Assistance-helper sets up or cleans up; patient completes activity. [place] assists only prior to or following the activity. 4-Supervision or Touching Assistance-helper provides verbal cues and/or touching/steadying and/or contact guard assistance as patient completes activity. Assistance may be provided throughout the activity or intermittently. 3-Partial/Moderate Assistance-helper does LESS THAN HALF the effort. [place] lifts, holds or supports trunk or limbs, but provides less than half the effort. 2-Substantial/Maximal Assistance-helper does MORE THAN HALF the effort. [place] lifts or holds trunk or limbs and provides more than half the effort. 7-Tiplswwup-nyvokk does ALL the effort. Patient does none of the effort to complete the activity. Or, the assistance of 2 or more helpers is required for the patient to complete the activity. If activity was not attempted, code reason: 7-Patient Refused. 9-Not Applicable-not attempted and the patient did not perform the activity before the current illness, exacerbation or injury. 10-Not Attempted due to Environmental Limitations-(lack of equipment, weather restraints, etc.). 88-Not Attempted due to Medical Conditions or Safety Concerns. Roll Left & Right (QC): 6 Sit to Lying (QC): 6 Lying to Sitting/Side of Bed(Q: 6 Sit to Stand (QC): 6 Chair/Qvk-np-Magbi Xfer(QC): 6 Toilet Transfer (QC): 6 Weight Bearing Full Weight Bearing Full Weight Bearing Gait Training Does the Patient Walk?: Yes Walk 10 feet (QC): 6 Walk 50 ft with 2 Turns(QC): 6 Walk 150 ft (QC): 6 Gait Persons Needed: 0 Gait Assistive Device: FWW no LOB, safe use of AD, slow steady gait Stair Training Stair Training: Handrails/: 2 handrails #of Steps: 8 4 Steps (QC): 6 Stairs: Pattern: Step to has 5 steps at home, explains her situation and simulates that on the steps here, no LOB , safe technique Exercises Supine Ex: Bridging, Ankle pumps, Rolling, Lower trunk rotation, Heel Slides, Short Arc Quads, Straight leg raise, Hip abd/add Supine Reps: 12 Seated Therapy Exercises: Ankle pumps, Sit to stand, Long arc quads, Hip flexion, Hip abd/add Seated Reps: 15 NuStep Minutes: 12 NuStep Workload: 5 Assessment Current Status: Good Progress pt. is good candidate for up ad mark in room, will forward to nurse PT Short Term Goals Short Term Goals Time Frame: Dec 10, 2021 Roll Left & Right: 6 Sit to lyin Lying to sitting on side of be: 6 Sit to stand: 4 (SBA) Chair/rbn-dt-dhtyp transfer: 4 (SBA) Walk 10 feet: 4 (SBA) Walk 50 feet with two turns: 4 (SBA) Walk 150 feet: 4 (SBA) PT Jail Goals Jail Goals PT Wheelchair Van Driver Goals Time Frame: Dec 24, 2021 Roll Left & Right (QC): 6 Sit to Lying (QC): 6 Lying-Sitting on Side/Bed(QC): 6 Sit to Stand (QC): 6 Chair/Hpc-qa-Dqefp Xfer(QC): 6 Toilet Transfer (QC): 6 Car Transfer (QC): 6 Does the Patient Walk: Yes Walk 10 feet (QC): 6 Walk 50ft with 2 Turns (QC): 6 Walk 150 ft (QC): 6 Walking 10ft on Uneven Surface: 6 1 Step (curb) (QC): 4 (SBA) 4 Steps (QC): 4 (SBA) 12 Steps (QC): 4 (SBA) Picking up an Object (QC): 4 (SBA using insurance billing clerk) Wheel 50 feet with 2 turns (QC: 9 Wheel 150 feet: 9 PT Plan Treatment/Plan Treatment Plan: Continue Plan of Care Treatment Plan: Bed Mobility, Education, Functional Activity Jase, Functional Strength, Group Therapy, Gait, Safety, Therapeutic Exercise, Transfers Treatment Duration: Dec 24, 2021 Frequency: At least 5 of 7 days/Wk (IRF) Estimated Hrs Per Day: 1.5 hours per day Patient and/or Family Agrees t: Yes Safety Risks/Education Patient Education: Gait Training, Transfer Techniques, Steps, Reviewed Precautions, Disease Process, Safety Issues Teaching Recipient: Patient Teaching Methods: Demonstration, Discussion Response to Teaching: Verbalize Understanding, Return Demonstration, Reinforcement Needed Time/GCodes Time In: 930 Time Out: 1100 Total Billed Treatment Time: 90 Total Billed Treatment 1,EX35m,GT25m,FA30m TYLER GARZA PTA Dec 06, 2021 11:00
--- NOTE | 2021-12-06 11:08 | PM&R Progress Note ---
Subjective HPI/CC On Admission Date Seen by Provider: Dec 06, 2021 Time Seen by Provider: 12:00 Subjective/Events-last exam 12/06/2021: Pt is doing really well No dysphasia No pain is reported No falls 12/05/2021: No major issues Walking around really well No other concerns 12/04/2021: Pt is doing really well No major issues Bowels are moving No falls Checked meds and labs Right sided weakness remains Review of Systems General: Fatigue, Malaise Objective Exam Vital Signs Vital Signs Date Time Temp Pulse Resp B/P (MAP) Pulse Ox O2 Delivery O2 Flow Rate FiO2 12/06/21 10:44 Room Air 12/06/21 07:54 36.0 65 20 134/63 (86) 96 12/03/21 13:32 21 Capillary Refill : General Appearance: No Apparent Distress, WD/WN, Chronically ill, Obese HEENT: PERRL/EOMI, Normal ENT Inspection, Pharynx Normal Neck: Full Range of Motion, Normal Inspection, Non Tender, Supple, Carotid Bruit Respiratory: Chest Non Tender, Lungs Clear, Normal Breath Sounds, No Accessory Muscle Use, No Respiratory Distress Cardiovascular: Regular Rate, Rhythm, No Edema, No Gallop, No JVD, No Murmur, Normal Peripheral Pulses Gastrointestinal: Normal Bowel Sounds, No Organomegaly, No Pulsatile Mass, Non Tender, Soft Back: Normal Inspection, No CVA Tenderness, No Vertebral Tenderness Extremity: Normal Capillary Refill, Normal Inspection, Normal Range of Motion, Non Tender, No Calf Tenderness, No Pedal Edema Neurologic/Psychiatric: Alert, Oriented x3, astrochemist II-XII Norm as Tested, Abnormal Gait, Depressed Affect, Motor Weakness (Right-sided weakness 4/5 upper extremity and 3/5 lower extremity) Skin: Normal Color, Warm/Dry Lymphatic: No Adenopathy Results/Procedures Lab Patient resulted labs reviewed. FIM Transfers Therapy Code Descriptions/Definitions Functional [place] Measure: 0=Not Assessed/NA 4=Minimal Assistance 1=Total Assistance 5=Supervision or Setup 2=Maximal Assistance 6=Modified [place] 3=Moderate Assistance 7=Complete IndependenceSCALE: Activities may be completed with or without assistive devices. 3-Pawhivpaot-yolveew completes the activity by him/herself with no assistance from a helper. 5-Set-up or Clean-up Assistance-helper sets up or cleans up; patient completes activity. [place] assists only prior to or following the activity. 4-Supervision or Touching Assistance-helper provides verbal cues and/or touching/steadying and/or contact guard assistance as patient completes activity. Assistance may be provided throughout the activity or intermittently. 3-Partial/Moderate Assistance-helper does LESS THAN HALF the effort. T[place] lifts, holds or supports trunk or limbs, but provides less than half the effort. 2-Substantial/Maximal Assistance-helper does MORE THAN HALF the effort. T[place] lifts or holds trunk or limbs and provides more than half the effort. 1-Vyvqljfll-fakxzr does ALL the effort. Patient does none of the effort to complete the activity. Or, the assistance of 2 or more helpers is required for the patient to complete the activity. If activity was not attempted, code reason: 7-Patient Refused. 9-Not Applicable-not attempted and the patient did not perform the activity before the current illness, exacerbation or injury. 10-Not Attempted due to Environmental Limitations-(lack of equipment, weather restraints, etc.). 88-Not Attempted due to Medical Conditions or Safety Concerns. Roll Left to Right (QC): 6 Sit to Lying (QC): 6 Sit to Stand (QC): 6 Chair/Hia-qw-Wtexw Xfer(QC): 6 Car Transfer (QC): 4 Gait Training Does the Patient Walk?: Yes Distance: 350' Walk 10 feet (QC): 6 Walk 50 ft with 2 Turns(QC): 6 Walk 150 ft (QC): 6 Walking 10ft/uneven surface-QC: 4 Gait Persons Needed: 0 Gait Assistive Device: FWW Wheelchair Training Does the Pt Use a Wheelchair?: No Wheel 50 ft with 2 turns (QC): 9 Wheel 150 ft (QC): 9 Type of Wheelchair: N/A Stair Training Stair Training: Handrails/: 2 handrails #of Steps: 8 1 Step (curb) (QC): 5 4 Steps (QC): 6 12 Steps (QC): 88 Stairs: Pattern: Step to Balance Picking up an Object (QC): 4 (SBA using a kettle coordinator) ADL-Treatment Eating (QC): 6 Oral Hygiene (QC): 6 Bathing Location: L Arm, R Arm, L Upper Leg, R Upper Leg, L Lower Leg (including foot), R Lower Leg (including foot), Chest, Abdomen, Buttocks, Perineal Area Shower/Bathe Self (QC): 4 Upper Body Dressing (QC): 5 Lower Body Dressing (QC): 4 On/Off Footwear (QC): 6 Toileting Hygiene (QC): 4 Toilet Transfer (QC): 4 Assessment/Plan Assessment and Plan Assess & Plan/Chief Complaint Assessment: 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 Obesity Rheumatoid arthritis Plan: Aggressive rehab Supportive care Pain control DC Adolfo 12/04/2021: Tely Monitor closely 12/05/2021: Supportive care 12/06/2021: MARIBELL Lopez (1) CVA (cerebral vascular accident) (2) History of coronary artery disease Status: Acute (3) HLD (hyperlipidemia) Status: Chronic (4) HTN (hypertension) Status: Chronic (5) Obesity Status: Chronic LULU WAGNER DO Dec 06, 2021 11:08
--- NOTE | 2021-12-06 14:30 | Progress Note - Cardiology ---
Cardiology SOAP Progress Note Subjective: No cp or palp or syncope or shortness of breath Gen malaise and weakness are improving No n/v/d Objective: I&O/Vital Signs 12/06/21 12/06/21 12/06/21 12/06/21 07:00 07:54 08:47 10:44 Temp 36.0 Pulse 65 65 Resp 20 B/P (MAP) 134/63 (86) Pulse Ox 96 O2 Delivery Room Air Room Air Room Air Constitutional: AAO x 3 Respiratory: No accessory muscle use, No respiratory distress; chest expansion is symmetric, chest is bilaterally symmetric, lungs clear to auscultation Cardiovascular: regular rate-rhythm; No JVD; S1 and S2 Gastrointestional: No tender; soft, round, audible bowel sounds Extremities: no lower extremity edema bilateral Neurologic/Psychiatric: other (moves all limbs equally) Skin: No rash on exposed areas, No ulcerations on exposed areas A/P: Assessment: CVA - management per Dr Samaniego - post status post tPA treatment - She reports still have minimal residual right side weakness (per nurse she reported that her right sided weakness is back to baseline from prior to this event) - Echo on 12-02-21: LVEF 55-60%, PASP WNL - ILR transmissions reviewed on 12-03-21 via [facility] - transmissions have not shown any a-fib/flutter - NSR with PVC's Palpitations - 24 HR Holter of 08-10-21 showed NSR with av HR 65 bpm. Frequent PVC (PVC burden 0.7%). No VT or SVT or signif trupti - S/P ILR implant on 08-21-21: NSR with isolated PVCs - recent ILR download 12-03-21 shows no evidence of a-fib/flutter - SR with freq PVC's [place] - Sleep study of 08-13-21 showed mild [place] - following with Dr. Mcneil CAD - Card cath and PCI on 03/02/20: Coronary artery disease primarily consisting of 95% ostial stenosis of the left anterior descending to just past origin of large D1 to which successful balloon angioplasty was carried out with reduced the stenosis to less than 30%. Mild plaque in other cors. RCA dominant - Echocardiogram of 03-02-20 showed LVEF 60-65%. PASP 20-25 mmHg - Card cath and PCI on 04/21/20: PTCA for 95% restenosis at site of PTCA in mid LAD, just past D1, reducing the lesion to less than 10% and with normal antegrade flow, LVEDP 12 mmHg, LVEF 50-55% - Cardiac cath on 06-08-[address] Oden: Severe LAD stenosis, transferred to [facility] - Reports cardiac cath with PCI on 06-10-[address] Haywood at [facility] - Card cath on 06/26/20: Patent LAD stent, mild to mod distal CAD, anomalous high origin of RCA and mild diffuse disease of RCA, LVEDP 11 mmHg, LVEF 55-60% - Card cath 12/03/[address] Gomez at [facility] in [place], [place]: showed LAD patent stent in the prox LAD, in the mid LAD there is an 80% stenosis in small vessel not amenable to intervention. Approx 50% stenosis in the prox first diag. LVEF 675%. Medical tx was advised. 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 The vertebral arteries are codominant. The carotid arteries bifurcate midneck without focal stenosis, vessel cut off, or vascular malformation within the neck. The visualized soft tissues are unremarkable. HTN - controlled Scleroderma, - by history - managed by PCP Celiac dz - managed by PCP HLD - statin tx - followed by PCP H/o occular stroke Medication Intolerance/allergy - Reported allergy to ASA (however, she has been taking ASA, per her report, without difficulty) - reports h/o convulsions - Reported shellfish allergy Orthopedic - H/O chronic joint pain d/t arthritis Family h/o - premature CAD (brothers x2 and father) Dizziness and vertigo - managed by pcp Plan: Monitor lab Replace electrolytes as indicated D/c tele SERENITY NINO MD FACP [facility] CCDS Dec 06, 2021 14:30
[2021-12-06] MEDS: ISOSORBIDE MONONITRATE 30 MG (IMDUR) TAB PO SCH (16:31)
[2021-12-06] MEDS: LORATADINE (CLARITIN) 10 MG TAB PO SCH (20:07)
[2021-12-06] MEDS: ACETAMINOPHEN 325 MG TABLET PO PRN (20:07)
[2021-12-06] MEDS: eZETimibe 10 MG (ZETIA) TABLET PO SCH (20:07)
[2021-12-06] MEDS: traZODone 50 MG (DESYREL) TAB PO SCH (20:07)
[2021-12-06] MEDS: ROSUVASTATIN 20 MG (CRESTOR) TABLET PO SCH (20:08)
[2021-12-06 20:30] VITALS: BP 155/60
[2021-12-07] MEDS: DICLOFENAC 1% GEL 100 GM (VOLTAREN) TUBE TP SCH ×5 (00:32→23:47)
[2021-12-07] MEDS: ENOXAPARIN 100 MG/1 ML (LOVENOX) SYR SC SCH ×2 (03:27→15:04)
--- NOTE | 2021-12-07 05:44 | PM&R Progress Note ---
Subjective HPI/CC On Admission Date Seen by Provider: Dec 07, 2021 Time Seen by Provider: 17:30 Subjective/Events-last exam 12/07/2021: No major issues DC planned for Friday No falls Using cane 12/06/2021: Pt is doing really well No dysphasia No pain is reported No falls 12/05/2021: No major issues Walking around really well No other concerns 12/04/2021: Pt is doing really well No major issues Bowels are moving No falls Checked meds and labs Right sided weakness remains Review of Systems General: Fatigue, Malaise Objective Exam Vital Signs Vital Signs Date Time Temp Pulse Resp B/P (MAP) Pulse Ox O2 Delivery O2 Flow Rate FiO2 12/07/21 20:14 36.1 62 16 104/69 (81) 96 Room Air 12/03/21 13:32 21 Capillary Refill : General Appearance: No Apparent Distress, WD/WN, Chronically ill, Obese HEENT: PERRL/EOMI, Normal ENT Inspection, Pharynx Normal Neck: Full Range of Motion, Normal Inspection, Non Tender, Supple, Carotid Bruit Respiratory: Chest Non Tender, Lungs Clear, Normal Breath Sounds, No Accessory Muscle Use, No Respiratory Distress Cardiovascular: Regular Rate, Rhythm, No Edema, No Gallop, No JVD, No Murmur, Normal Peripheral Pulses Gastrointestinal: Normal Bowel Sounds, No Organomegaly, No Pulsatile Mass, Non Tender, Soft Back: Normal Inspection, No CVA Tenderness, No Vertebral Tenderness Extremity: Normal Capillary Refill, Normal Inspection, Normal Range of Motion, Non Tender, No Calf Tenderness, No Pedal Edema Neurologic/Psychiatric: Alert, Oriented x3, cardiac cath tech II-XII Norm as Tested, Abnormal Gait, Depressed Affect, Motor Weakness (Right-sided weakness 4/5 upper extremity and 3/5 lower extremity) Skin: Normal Color, Warm/Dry Lymphatic: No Adenopathy Results/Procedures Lab Patient resulted labs reviewed. FIM Transfers Therapy Code Descriptions/Definitions Functional [employer] Measure: 0=Not Assessed/NA 4=Minimal Assistance 1=Total Assistance 5=Supervision or Setup 2=Maximal Assistance 6=Modified [employer] 3=Moderate Assistance 7=Complete IndependenceSCALE: Activities may be completed with or without assistive devices. 1-Yjbrcvxyqg-zxiplps completes the activity by him/herself with no assistance from a helper. 5-Set-up or Clean-up Assistance-helper sets up or cleans up; patient completes activity. [place] assists only prior to or following the activity. 4-Supervision or Touching Assistance-helper provides verbal cues and/or touching/steadying and/or contact guard assistance as patient completes activity. Assistance may be provided throughout the activity or intermittently. 3-Partial/Moderate Assistance-helper does LESS THAN HALF the effort. [place] lifts, holds or supports trunk or limbs, but provides less than half the effort. 2-Substantial/Maximal Assistance-helper does MORE THAN HALF the effort. [place] lifts or holds trunk or limbs and provides more than half the effort. 5-Kbbqjcifs-pivrgm does ALL the effort. Patient does none of the effort to complete the activity. Or, the assistance of 2 or more helpers is required for the patient to complete the activity. If activity was not attempted, code reason: 7-Patient Refused. 9-Not Applicable-not attempted and the patient did not perform the activity before the current illness, exacerbation or injury. 10-Not Attempted due to Environmental Limitations-(lack of equipment, weather restraints, etc.). 88-Not Attempted due to Medical Conditions or Safety Concerns. Roll Left to Right (QC): 6 Sit to Lying (QC): 6 Sit to Stand (QC): 6 Chair/Sxm-qs-Fegmj Xfer(QC): 6 Car Transfer (QC): 4 Gait Training Does the Patient Walk?: Yes Distance: 350' Walk 10 feet (QC): 6 Walk 50 ft with 2 Turns(QC): 6 Walk 150 ft (QC): 6 Walking 10ft/uneven surface-QC: 4 Gait Persons Needed: 0 Gait Assistive Device: FWW Wheelchair Training Does the Pt Use a Wheelchair?: No Wheel 50 ft with 2 turns (QC): 9 Wheel 150 ft (QC): 9 Type of Wheelchair: N/A Stair Training Stair Training: Handrails/: 2 handrails #of Steps: 8 1 Step (curb) (QC): 5 4 Steps (QC): 6 12 Steps (QC): 88 Stairs: Pattern: Step to Balance Picking up an Object (QC): 4 (SBA using a mixed animal veterinarian) ADL-Treatment Eating (QC): 6 Oral Hygiene (QC): 6 Bathing Location: L Arm, R Arm, L Upper Leg, R Upper Leg, L Lower Leg (including foot), R Lower Leg (including foot), Chest, Abdomen, Buttocks, Perineal Area Shower/Bathe Self (QC): 4 Upper Body Dressing (QC): 5 Lower Body Dressing (QC): 4 On/Off Footwear (QC): 6 Toileting Hygiene (QC): 4 Toilet Transfer (QC): 4 Assessment/Plan Assessment and Plan Assess & Plan/Chief Complaint Assessment: 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 Obesity Rheumatoid arthritis Plan: Aggressive rehab Supportive care Pain control DC Mata 12/04/2021: Tely Monitor closely 12/05/2021: Supportive care 12/06/2021: DC Tely 12/07/2021: Cane used now instead of a walker (1) CVA (cerebral vascular accident) (2) History of coronary artery disease Status: Acute (3) HLD (hyperlipidemia) Status: Chronic (4) HTN (hypertension) Status: Chronic (5) Obesity Status: Chronic LULU WAGNER DO Dec 07, 2021 05:44
[2021-12-07] MEDS: LEVOTHYROXINE 50 MCG (LEVOTHROID) TAB PO SCH (06:55)
[2021-12-07] MEDS: MULTIVIT W/MINERALS TAB (THERAGRAN M) PO SCH (06:55)
[2021-12-07 07:33] VITALS: BP 121/70
--- NOTE | 2021-12-07 09:02 | Occupational Ther Daily Note ---
OT Current Status-Daily Note Subjective Pt alert in recliner. Pt agrees to therapy. No pain at this time. Mental Status/Objective Patient Orientation: Person, Place, Time, Situation Attachments: IV Acute change in mental status: 0 Inattention: 0 Disorganized thinkin Altered level of consciousness: 0 ADL-Treatment Pt independent eating. Pt agrees to shower. Pt ambulated with FWW to toilet, SBA. Pt transfers to toilet using grabbars, SBA for safety. Pt independent in toilet hygiene while sitting. Pt SBA while hiking pants over hips. Pt ambulated using FWW to shower bench and transferred using grabbars, SBA. Pt completed 100% of shower in sitting. Pt completed oral care independently sitting at sink. Pt independent upper body dressing. Pt threaded clothing over feet by self then required SBA to hike over hips. Pt independent footwear. Pt ambulated to recliner using FWW, SBA. Pt continues to require education cues due to impulsively standing. Pt left in recliner call light/phone in reach all needs met in room. Therapy Code Descriptions/Definitions Functional [place] Measure: 0=Not Assessed/NA 4=Minimal Assistance 1=Total Assistance 5=Supervision or Setup 2=Maximal Assistance 6=Modified [place] 3=Moderate Assistance 7=Complete IndependenceSCALE: Activities may be completed with or without assistive devices. 9-Flzyurbozx-zkrbprs completes the activity by him/herself with no assistance from a helper. 5-Set-up or Clean-up Assistance-helper sets up or cleans up; patient completes activity. [place] assists only prior to or following the activity. 4-Supervision or Touching Assistance-helper provides verbal cues and/or touching/steadying and/or contact guard assistance as patient completes activity. Assistance may be provided throughout the activity or intermittently. 3-Partial/Moderate Assistance-helper does LESS THAN HALF the effort. [place] lifts, holds or supports trunk or limbs, but provides less than half the effort. 2-Substantial/Maximal Assistance-helper does MORE THAN HALF the effort. [place] lifts or holds trunk or limbs and provides more than half the effort. 2-Zezsqkkif-lbrzum does ALL the effort. Patient does none of the effort to complete the activity. Or, the assistance of 2 or more helpers is required for the patient to complete the activity. If activity was not attempted, code reason: 7-Patient Refused. 9-Not Applicable-not attempted and the patient did not perform the activity before the current illness, exacerbation or injury. 10-Not Attempted due to Environmental Limitations-(lack of equipment, weather restraints, etc.). 88-Not Attempted due to Medical Conditions or Safety Concerns. Eating (QC): 6 Oral Hygiene (QC): 6 Bathing Location: L Arm, R Arm, L Upper Leg, R Upper Leg, L Lower Leg (including foot), R Lower Leg (including foot), Chest, Abdomen, Buttocks, Perineal Area Shower/Bathe Self (QC): 6 Upper Body Dressing (QC): 6 Lower Body Dressing (QC): 4 On/Off Footwear: 6 Toileting Hygiene (QC): 4 Toilet Transfer (QC): 4 Pt continues to be SBA with functional mobility due to safety awareness of episodic dizziness. Other Treatment Pt completed fine/gross motor task with cognition component, 2lb weights on wrists to strengthen B UE for daily functional tasks. Pt required verbal cues throughout task and skilled instruction to use both hands.. Pt completed fine/gross motor tasks in standing to work on dynamic standing balance and standing stamina. Pt ambulated with FWW to recliner from therapy gym, [facility], for safety. OT Blank Driller Goals Blank Driller Goals Time Frame: Dec 21, 2021 Acute change in mental status: 0 Inattention: 0 Disorganized thinkin Altered level of consciousness: 0 Eating (QC): 6 (met) Oral Hygiene (QC): 6 (met) Toileting Hygiene (QC): 6 (not met: SBA due to safety concerns) Shower/Bathe Self (QC): 6 (met) Upper Body Dressing (QC): 6 (met) Lower Body Dressing (QC): 6 (not met: SBA due to safety concerns) On/Off Footwear (QC): 6 (met) Additional Goals: 1-Demonstrate ADL Tasks, 2-Verbalize Understanding, 3-Improve Strength/Jase 1=Demonstrate adherence to instructed precautions during ADL tasks. 2=Patient will verbalize/demonstrate understanding of assistive devices/modifications for ADL. 3=Patient will improve strength/tolerance for activity to enable patient to pe rform ADL's. OT Education/Plan Problem List/Assessment Assessment: Decreased Activ Tolerance, Decreased Safety Aware, Decreased UE Strength, Impaired Coordination, Impaired Funct Balance Discharge Recommendations Plan/Recommendations: Continue POC Treatment Plan/Plan of Care Patient would benefit from OT for education, treatment and training to promote independence in ADL's, mobility, safety and/or upper extremity function for ADL's. Plan of Care: ADL Retraining, Functional Mobility, Group Exercise/Act as Ind, UE Funct Exercise/Act Treatment Duration: Dec 21, 2021 Frequency: At least 5 of 7 days/Wk (IRF) Estimated Hrs Per Day: 1.5 hours per day Agreement: Yes Rehab Potential: Good Time/GCodes Start Time: 07:30 Stop Time: 09:00 Total Time Billed (hr/min): 90 Billed Treatment Time 1 visit ADL 4 (60 min) EX 2 (30 min) ELAINE RUIZ Dec 07, 2021 09:02
[2021-12-07] MEDS: meTOproloL SUCCINATE 50 MG (TOPROL XL) TAB PO SCH (09:06)
[2021-12-07] MEDS: amLODIPine 2.5MG (NORVASC) TAB PO SCH (09:06)
[2021-12-07] MEDS: ASPIRIN E.C. 81 MG (ECOTRIN) TAB PO SCH (09:06)
[2021-12-07] MEDS: MAGNESIUM OXIDE (MAG-OX)400 MG TAB PO SCH ×2 (09:07→17:50)
[2021-12-07] MEDS: RANOLAZINE ER 500 MG TAB (RANEXA) PO SCH ×2 (09:07→20:21)
[2021-12-07] MEDS: DOCUSATE SODIUM 100 MG (COLACE) CAP PO SCH ×2 (09:08→19:51)
[2021-12-07] MEDS: FLUTICASONE NASAL SPRAY (FLONASE) 16 GM BTL NS SCH (09:08)
[2021-12-07] MEDS: SENNOSIDES 8.6 MG (SENOKOT) TAB PO SCH ×2 (09:09→19:52)
[2021-12-07] MEDS: polyethylene glycoL POWDER 17 GM (MIRALAX) PACK PO SCH ×2 (09:09→19:52)
--- NOTE | 2021-12-07 10:28 | Physical Therapy Daily Note ---
PT Daily Note-Current Subjective Pt. agrees to Rx, wonderful attitude, hard worker. Pt. wants to trial using SPC bc she has one at home and feels her balance is better Pain Location: No Pain Reported Section J - Health Conditions 1. Rarely or not at all 2. Occasionally 3. Frequently 4. Almost constantly 8. Unable to answer Pain Effect on Sleep: 1 Pain Interference with Therapy: 1 Pain Interference w/Day-to-Day: 1 Mental Status Patient Orientation: Normal For Age Transfers SCALE: Activities may be completed with or without assistive devices. 0-Ghahjqmhhd-vaspwsa completes the activity by him/herself with no assistance from a helper. 5-Set-up or Clean-up Assistance-helper sets up or cleans up; patient completes activity. [place] assists only prior to or following the activity. 4-Supervision or Touching Assistance-helper provides verbal cues and/or touching/steadying and/or contact guard assistance as patient completes ac tivity. Assistance may be provided throughout the activity or intermittently. 3-Partial/Moderate Assistance-helper does LESS THAN HALF the effort. [place] lifts, holds or supports trunk or limbs, but provides less than half the effort. 2-Substantial/Maximal Assistance-helper does MORE THAN HALF the effort. [place] lifts or holds trunk or limbs and provides more than half the effort. 4-Mlbnexmni-qxagga does ALL the effort. Patient does none of the effort to complete the activity. Or, the assistance of 2 or more helpers is required for the patient to complete the activity. If activity was not attempted, code reason: 7-Patient Refused. 9-Not Applicable-not attempted and the patient did not perform the activity before the current illness, exacerbation or injury. 10-Not Attempted due to Environmental Limitations-(lack of equipment, weather restraints, etc.). 88-Not Attempted due to Medical Conditions or Safety Concerns. Roll Left & Right (QC): 6 Sit to Lying (QC): 6 Lying to Sitting/Side of Bed(Q: 6 Sit to Stand (QC): 6 Chair/Xfq-ms-Xtvry Xfer(QC): 6 Toilet Transfer (QC): 6 Weight Bearing Full Weight Bearing Full Weight Bearing Gait Training Does the Patient Walk?: Yes Walk 10 feet (QC): 6 Walk 50 ft with 2 Turns(QC): 6 Walk 150 ft (QC): 6 Gait Persons Needed: 0 Gait Assistive Device: Cane Single Point no LOB, good safe sequence and pattern with SPC Exercises Supine Ex: Bridging, Ankle pumps, Quad Set, Rolling, Glut sets, Lower trunk rotation, Heel Slides, Short Arc Quads, Scooting, Straight leg raise, Hip abd/add Supine Reps: 15 Standing: Hip Abduction, Heel/toe raises, Marching, Mini squats Standing Reps: 15 NuStep Minutes: 15 NuStep Workload: 4 Treatments TRFs, stairs, gait with SPC, sit stand and nustep PT Short Term Goals Short Term Goals Time Frame: Dec 10, 2021 Roll Left & Right: 6 Sit to lyin Lying to sitting on side of be: 6 Sit to stand: 4 (SBA) Chair/xbb-zl-gxhkq transfer: 4 (SBA) Walk 10 feet: 4 (SBA) Walk 50 feet with two turns: 4 (SBA) Walk 150 feet: 4 (SBA) PT Derrickman Helper Goals Derrickman Helper Goals PT Derrickman Helper Goals Time Frame: Dec 24, 2021 Roll Left & Right (QC): 6 Sit to Lying (QC): 6 Lying-Sitting on Side/Bed(QC): 6 Sit to Stand (QC): 6 Chair/Dzr-xm-Pxhhc Xfer(QC): 6 Toilet Transfer (QC): 6 Car Transfer (QC): 6 Does the Patient Walk: Yes Walk 10 feet (QC): 6 Walk 50ft with 2 Turns (QC): 6 Walk 150 ft (QC): 6 Walking 10ft on Uneven Surface: 6 1 Step (curb) (QC): 4 (SBA) 4 Steps (QC): 4 (SBA) 12 Steps (QC): 4 (SBA) Picking up an Object (QC): 4 (SBA using jailkeeper) Wheel 50 feet with 2 turns (QC: 9 Wheel 150 feet: 9 PT Plan Treatment/Plan Treatment Plan: Continue Plan of Care Treatment Plan: Bed Mobility, Education, Functional Activity Jase, Functional Strength, Group Therapy, Gait, Safety, Therapeutic Exercise, Transfers Treatment Duration: Dec 24, 2021 Frequency: At least 5 of 7 days/Wk (IRF) Estimated Hrs Per Day: 1.5 hours per day Patient and/or Family Agrees t: Yes Safety Risks/Education Patient Education: Gait Training, Transfer Techniques, Steps, Correct Positioning, Disease Process, Safety Issues Teaching Recipient: Patient Teaching Methods: Demonstration, Discussion Response to Teaching: Verbalize Understanding, Return Demonstration, Maikel nforcement Needed Time/GCodes Time In: 900 Time Out: 1030 Total Billed Treatment Time: 90 Total Billed Treatment 1,GT25m,FA20m,EX45m TYLER GARZA CIVIL DESIGN SPECIALIST Dec 07, 2021 10:28
[2021-12-07] MEDS: diphenhydrAMINE 2% 30 GM CR (ALLERGY CREAM) TOP PRN (10:30)
--- NOTE | 2021-12-07 13:06 | Progress Note - Cardiology ---
Cardiology SOAP Progress Note Subjective: No cp or palp or syncope or shortness of breath No n/v/d Feels well, overall Objective: I&O/Vital Signs 12/07/21 12/07/21 07:33 09:00 Temp 36.3 Pulse 60 Resp 18 B/P (MAP) 121/70 (87) Pulse Ox 97 O2 Delivery Room Air Room Air Constitutional: AAO x 3 Respiratory: No accessory muscle use, No respiratory distress; chest expansion is symmetric, chest is bilaterally symmetric, lungs clear to auscultation Cardiovascular: regular rate-rhythm; No JVD; S1 and S2 Gastrointestional: No tender; soft, round, audible bowel sounds Extremities: no lower extremity edema bilateral Neurologic/Psychiatric: other (moves all limbs equally) Skin: No rash on exposed areas, No ulcerations on exposed areas A/P: Assessment: CVA - management per Dr Samaniego - post status post tPA treatment - She reports still have minimal residual right side weakness (per nurse she reported that her right sided weakness is back to baseline from prior to this event) - Echo on 12-02-21: LVEF 55-60%, PASP WNL - ILR transmissions reviewed on 12-03-21 via [facility] [employer] - transmissions have not shown any a-fib/flutter - NSR with PVC's Palpitations - 24 HR Holter of 08-10-21 showed NSR with av HR 65 bpm. Frequent PVC (PVC burden 0.7%). No VT or SVT or signif trupti - S/P ILR implant on 08-21-21: NSR with isolated PVCs - recent ILR download 12-03-21 shows no evidence of a-fib/flutter - SR with freq PVC's [place] - Sleep study of 08-13-21 showed mild [place] - following with Dr. Mcneil CAD - Card cath and PCI on 03/02/20: Coronary artery disease primarily consisting of 95% ostial stenosis of the left anterior descending to just past origin of large D1 to which successful balloon angioplasty was carried out with reduced the stenosis to less than 30%. Mild plaque in other cors. RCA dominant - Echocardiogram of 03-02-20 showed LVEF 60-65%. PASP 20-25 mmHg - Card cath and PCI on 04/21/20: PTCA for 95% restenosis at site of PTCA in mid LAD, just past D1, reducing the lesion to less than 10% and with normal antegrade flow, LVEDP 12 mmHg, LVEF 50-55% - Cardiac cath on 06-08-[address] Oden: Severe LAD stenosis, transferred to [facility] - Reports cardiac cath with PCI on 06-10-[address] Haywood at [facility] - Card cath on 06/26/20: Patent LAD stent, mild to mod distal CAD, anomalous high origin of RCA and mild diffuse disease of RCA, LVEDP 11 mmHg, LVEF 55-60% - Card cath 12/03/[address] Gomez at [facility] in [place], [place]: showed LAD patent stent in the prox LAD, in the mid LAD there is an 80% stenosis in small vessel not amenable to intervention. Approx 50% stenosis in the prox first diag. LVEF 675%. Medical tx was advised. 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 The vertebral arteries are codominant. The carotid arteries bifurcate midneck without focal stenosis, vessel cut off, or vascular malformation within the neck. The visualized soft tissues are unremarkable. HTN - controlled Scleroderma, - by history - managed by PCP Celiac dz - managed by PCP HLD - statin tx - followed by PCP H/o occular stroke Medication Intolerance/allergy - Reported allergy to ASA (however, she has been taking ASA, per her report, without difficulty) - reports h/o convulsions - Reported shellfish allergy Orthopedic - H/O chronic joint pain d/t arthritis Family h/o - premature CAD (brothers x2 and father) Dizziness and vertigo - managed by pcp Plan: Monitor lab Replace electrolytes as indicated Ok to d/c from cardiac standpoint. F/u with Cardiology in 2 weeks SERENITY NINO [facility] Dec 07, 2021 13:06
--- NOTE | 2021-12-07 13:07 | Physical Therapy Daily Note ---
PT Daily Note-Current Subjective agreeable to Rx. Pain Location: No Pain Reported Section J - Health Conditions 1. Rarely or not at all 2. Occasionally 3. Frequently 4. Almost constantly 8. Unable to answer Pain Effect on Sleep: 1 Pain Interference with Therapy: 1 Pain Interference w/Day-to-Day: 1 Mental Status Patient Orientation: Normal For Age Transfers SCALE: Activities may be completed with or without assistive devices. 1-Ymvkldsxfa-drhligb completes the activity by him/herself with no assistance from a helper. 5-Set-up or Clean-up Assistance-helper sets up or cleans up; patient completes activity. [place] assists only prior to or following the activity. 4-Supervision or Touching Assistance-helper provides verbal cues and/or touching/steadying and/or contact guard assistance as patient completes activity. Assistance may be provided throughout the activity or intermittently. 3-Partial/Moderate Assistance-helper does LESS THAN HALF the effort. [place] lifts, holds or supports trunk or limbs, but provides less than half the effort. 2-Substantial/Maximal Assistance-helper does MORE THAN HALF the effort. [place] lifts or holds trunk or limbs and provides more than half the effort. 2-Txsrujyec-zizpgz does ALL the effort. Patient does none of the effort to complete the activity. Or, the assistance of 2 or more helpers is required for the patient to complete the activity. If activity was not attempted, code reason: 7-Patient Refused. 9-Not Applicable-not attempted and the patient did not perform the activity before the current illness, exacerbation or injury. 10-Not Attempted due to Environmental Limitations-(lack of equipment, weather restraints, etc.). 88-Not Attempted due to Medical Conditions or Safety Concerns. Roll Left & Right (QC): 6 Sit to Lying (QC): 6 Lying to Sitting/Side of Bed(Q: 6 Sit to Stand (QC): 6 Chair/Pps-kv-Ruqrt Xfer(QC): 6 Toilet Transfer (QC): 6 Car Transfer (QC): 6 Weight Bearing Full Weight Bearing Full Weight Bearing Gait Training Does the Patient Walk?: Yes Walk 10 feet (QC): 6 Walk 50 ft with 2 Turns(QC): 6 Walk 150 ft (QC): 6 Walking 10ft/uneven surface-QC: 6 Gait Persons Needed: 0 Gait Assistive Device: Cane Single Point Wheelchair Training Does the Pt Use a Wheelchair?: No Stair Training Stair Training: Handrails/: 1 handrail #of Steps: 12 1 Step (curb) (QC): 6 4 Steps (QC): 6 12 Steps (QC): 6 Stairs: Pattern: Step to Balance Picking up an Object (QC): 6 Treatments QC Assessment Current Status: Good Progress meets goals PT Short Term Goals Short Term Goals Time Frame: Dec 10, 2021 Roll Left & Right: 6 Sit to lyin Lying to sitting on side of be: 6 Sit to stand: 4 (SBA) Chair/dob-va-cezeq transfer: 4 (SBA) Walk 10 feet: 4 (SBA) Walk 50 feet with two turns: 4 (SBA) Walk 150 feet: 4 (SBA) PT Coating Mixer Goals Coating Mixer Goals PT Coating Mixer Goals Time Frame: Dec 24, 2021 Roll Left & Right (QC): 6 Sit to Lying (QC): 6 Lying-Sitting on Side/Bed(QC): 6 Sit to Stand (QC): 6 Chair/Sod-ew-Elnzl Xfer(QC): 6 Toilet Transfer (QC): 6 Car Transfer (QC): 6 Does the Patient Walk: Yes Walk 10 feet (QC): 6 Walk 50ft with 2 Turns (QC): 6 Walk 150 ft (QC): 6 Walking 10ft on Uneven Surface: 6 1 Step (curb) (QC): 4 (SBA) 4 Steps (QC): 4 (SBA) 12 Steps (QC): 4 (SBA) Picking up an Object (QC): 4 (SBA using technology specialist) Wheel 50 feet with 2 turns (QC: 9 Wheel 150 feet: 9 PT Plan Treatment/Plan Treatment Plan: Continue Plan of Care Treatment Plan: Bed Mobility, Education, Functional Activity Jase, Functional Strength, Group Therapy, Gait, Safety, Therapeutic Exercise, Transfers Treatment Duration: Dec 24, 2021 Frequency: At least 5 of 7 days/Wk (IRF) Estimated Hrs Per Day: 1.5 hours per day Patient and/or Family Agrees t: Yes Safety Risks/Education Patient Education: Gait Training, Transfer Techniques, Steps, Correct Positioning, Safety Issues Teaching Recipient: Patient Teaching Methods: Discussion Response to Teaching: Verbalize Understanding, Return Demonstration Time/GCodes Time In: 1250 Time Out: 1305 Total Billed Treatment Time: 15 Total Billed Treatment 1,FA15m TYLER GARZA PTA Dec 07, 2021 13:07
[2021-12-07] MEDS: ISOSORBIDE MONONITRATE 30 MG (IMDUR) TAB PO SCH (15:02)
[2021-12-07 20:14] VITALS: BP 104/69
[2021-12-07] MEDS: traZODone 50 MG (DESYREL) TAB PO SCH (20:21)
[2021-12-07] MEDS: ACETAMINOPHEN 325 MG TABLET PO PRN (20:21)
[2021-12-07] MEDS: ROSUVASTATIN 20 MG (CRESTOR) TABLET PO SCH (20:21)
[2021-12-07] MEDS: eZETimibe 10 MG (ZETIA) TABLET PO SCH (20:21)
[2021-12-07] MEDS: LORATADINE (CLARITIN) 10 MG TAB PO SCH (20:22)
[2021-12-08] MEDS: ENOXAPARIN 100 MG/1 ML (LOVENOX) SYR SC SCH ×2 (03:05→14:44)
[2021-12-08] MEDS: DICLOFENAC 1% GEL 100 GM (VOLTAREN) TUBE TP SCH ×4 (06:16→23:47)
--- NOTE | 2021-12-08 06:24 | PM&R Progress Note ---
Subjective HPI/CC On Admission Date Seen by Provider: Dec 08, 2021 Time Seen by Provider: 10:30 Subjective/Events-last exam 12/08/2021: No issues No pain DC [facility] 12/07/2021: No major issues DC planned for Friday No falls Using cane 12/06/2021: Pt is doing really well No dysphasia No pain is reported No falls 12/05/2021: No major issues Walking around really well No other concerns 12/04/2021: Pt is doing really well No major issues Bowels are moving No falls Checked meds and labs Right sided weakness remains Review of Systems General: Fatigue, Malaise Objective Exam Vital Signs Vital Signs Date Time Temp Pulse Resp B/P (MAP) Pulse Ox O2 Delivery O2 Flow Rate FiO2 12/08/21 09:42 Room Air 12/08/21 07:30 36.6 62 20 126/74 (91) 97 12/03/21 13:32 21 Capillary Refill : General Appearance: No Apparent Distress, WD/WN, Chronically ill, Obese HEENT: PERRL/EOMI, Normal ENT Inspection, Pharynx Normal Neck: Full Range of Motion, Normal Inspection, Non Tender, Supple, Carotid Bruit Respiratory: Chest Non Tender, Lungs Clear, Normal Breath Sounds, No Accessory Muscle Use, No Respiratory Distress Cardiovascular: Regular Rate, Rhythm, No Edema, No Gallop, No JVD, No Murmur, Normal Peripheral Pulses Gastrointestinal: Normal Bowel Sounds, No Organomegaly, No Pulsatile Mass, Non Tender, Soft Back: Normal Inspection, No CVA Tenderness, No Vertebral Tenderness Extremity: Normal Capillary Refill, Normal Inspection, Normal Range of Motion, Non Tender, No Calf Tenderness, No Pedal Edema Neurologic/Psychiatric: Alert, Oriented x3, catering truck driver II-XII Norm as Tested, Abnormal Gait, Depressed Affect, Motor Weakness (Right-sided weakness 4/5 upper extremity and 3/5 lower extremity) Skin: Normal Color, Warm/Dry Lymphatic: No Adenopathy Results/Procedures Lab Patient resulted labs reviewed. FIM Transfers Therapy Code Descriptions/Definitions Functional [place] Measure: 0=Not Assessed/NA 4=Minimal Assistance 1=Total Assistance 5=Supervision or Setup 2=Maximal Assistance 6=Modified [place] 3=Moderate Assistance 7=Complete IndependenceSCALE: Activities may be completed with or without assistive devices. 0-Gbuuasknio-yxqzhyf completes the activity by him/herself with no assistance from a helper. 5-Set-up or Clean-up Assistance-helper sets up or cleans up; patient completes activity. [place] assists only prior to or following the activity. 4-Supervision or Touching Assistance-helper provides verbal cues and/or touching/steadying and/or contact guard assistance as patient completes activity. Assistance may be provided throughout the activity or intermittently. 3-Partial/Moderate Assistance-helper does LESS THAN HALF the effort. [place] lifts, holds or supports trunk or limbs, but provides less than half the effort. 2-Substantial/Maximal Assistance-helper does MORE THAN HALF the effort. [place] lifts or holds trunk or limbs and provides more than half the effort. 1-Cxbpuqwoy-ffwuha does ALL the effort. Patient does none of the effort to complete the activity. Or, the assistance of 2 or more helpers is required for the patient to complete the activity. If activity was not attempted, code reason: 7-Patient Refused. 9-Not Applicable-not attempted and the patient did not perform the activity before the current illness, exacerbation or injury. 10-Not Attempted due to Environmental Limitations-(lack of equipment, weather restraints, etc.). 88-Not Attempted due to Medical Conditions or Safety Concerns. Roll Left to Right (QC): 6 Sit to Lying (QC): 6 Sit to Stand (QC): 6 Chair/Mix-ih-Fevqi Xfer(QC): 6 Car Transfer (QC): 6 Gait Training Does the Patient Walk?: Yes Distance: 350' Walk 10 feet (QC): 6 Walk 50 ft with 2 Turns(QC): 6 Walk 150 ft (QC): 6 Walking 10ft/uneven surface-QC: 6 Gait Persons Needed: 0 Gait Assistive Device: Cane Single Point Wheelchair Training Does the Pt Use a Wheelchair?: No Wheel 50 ft with 2 turns (QC): 9 Wheel 150 ft (QC): 9 Type of Wheelchair: N/A Stair Training Stair Training: Handrails/: 1 handrail #of Steps: 12 1 Step (curb) (QC): 6 4 Steps (QC): 6 12 Steps (QC): 6 Stairs: Pattern: Step to Balance Picking up an Object (QC): 6 ADL-Treatment Eating (QC): 6 Oral Hygiene (QC): 6 Bathing Location: L Arm, R Arm, L Upper Leg, R Upper Leg, L Lower Leg (including foot), R Lower Leg (including foot), Chest, Abdomen, Buttocks, Perineal Area Shower/Bathe Self (QC): 6 Upper Body Dressing (QC): 6 Lower Body Dressing (QC): 4 On/Off Footwear (QC): 6 Toileting Hygiene (QC): 4 Toilet Transfer (QC): 4 Assessment/Plan Assessment and Plan Assess & Plan/Chief Complaint Assessment: 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 Obesity Rheumatoid arthritis Plan: Aggressive rehab Supportive care Pain control MARIBELL Mata 12/04/2021: Tely Monitor closely 12/05/2021: Supportive care 12/06/2021: DC Tely 12/07/2021: Cane used now instead of a walker 12/08/2021: Monitor closely (1) CVA (cerebral vascular accident) (2) History of coronary artery disease Status: Acute (3) HLD (hyperlipidemia) Status: Chronic (4) HTN (hypertension) Status: Chronic (5) Obesity Status: Chronic LULU WAGNER DO Dec 08, 2021 06:24
[2021-12-08] MEDS: MULTIVIT W/MINERALS TAB (THERAGRAN M) PO SCH (06:29)
[2021-12-08] MEDS: LEVOTHYROXINE 50 MCG (LEVOTHROID) TAB PO SCH (06:29)
[2021-12-08 07:30] VITALS: BP 126/74
[2021-12-08] MEDS: ASPIRIN E.C. 81 MG (ECOTRIN) TAB PO SCH (08:21)
[2021-12-08] MEDS: MAGNESIUM OXIDE (MAG-OX)400 MG TAB PO SCH ×2 (08:21→17:15)
[2021-12-08] MEDS: RANOLAZINE ER 500 MG TAB (RANEXA) PO SCH ×2 (08:21→20:49)
[2021-12-08] MEDS: polyethylene glycoL POWDER 17 GM (MIRALAX) PACK PO SCH ×2 (08:22→20:52)
[2021-12-08] MEDS: DOCUSATE SODIUM 100 MG (COLACE) CAP PO SCH ×2 (08:22→20:52)
[2021-12-08] MEDS: FLUTICASONE NASAL SPRAY (FLONASE) 16 GM BTL NS SCH (08:22)
[2021-12-08] MEDS: meTOproloL SUCCINATE 50 MG (TOPROL XL) TAB PO SCH (08:23)
[2021-12-08] MEDS: amLODIPine 2.5MG (NORVASC) TAB PO SCH (08:23)
[2021-12-08] MEDS: SENNOSIDES 8.6 MG (SENOKOT) TAB PO SCH ×2 (08:23→20:52)
--- NOTE | 2021-12-08 11:53 | Physical Therapy Daily Note ---
PT Daily Note-Current Subjective Upon arrival, pt was seated in recliner. Pt states that she slept well and reports no pain. Pt agrees to PT. Pain Section J - Health Conditions 1. Rarely or not at all 2. Occasionally 3. Frequently 4. Almost constantly 8. Unable to answer Pain Effect on Sleep: 1 Pain Interference with Therapy: 1 Pain Interference w/Day-to-Day: 1 Mental Status Patient Orientation: Person, Situation Transfers SCALE: Activities may be completed with or without assistive devices. 9-Oqseizyygg-ffzjbil completes the activity by him/herself with no assistance from a helper. 5-Set-up or Clean-up Assistance-helper sets up or cleans up; patient completes activity. [place] assists only prior to or following the activity. 4-Supervision or Touching Assistance-helper provides verbal cues and/or touching/steadying and/or contact guard assistance as patient completes activity. Assistance may be provided throughout the activity or intermittently. 3-Partial/Moderate Assistance-helper does LESS THAN HALF the effort. [place] lifts, holds or supports trunk or limbs, but provides less than half the effort. 2-Substantial/Maximal Assistance-helper does MORE THAN HALF the effort. [place] lifts or holds trunk or limbs and provides more than half the effort. 5-Kjqurkeda-rggage does ALL the effort. Patient does none of the effort to complete the activity. Or, the assistance of 2 or more helpers is required for the patient to complete the activity. If activity was not attempted, code reason: 7-Patient Refused. 9-Not Applicable-not attempted and the patient did not perform the activity before the current illness, exacerbation or injury. 10-Not Attempted due to Environmental Limitations-(lack of equipment, weather restraints, etc.). 88-Not Attempted due to Medical Conditions or Safety Concerns. Sit to Stand (QC): 6 Toilet Transfer (QC): 6 Pt transfer from sit to stand without assistance, but was SBA. Pt ambulated to BR and was able to toilet without assistance. Weight Bearing Full Weight Bearing Full Weight Bearing Gait Training Does the Patient Walk?: Yes Distance: 300' Walk 10 feet (QC): 6 Walk 50 ft with 2 Turns(QC): 6 Walk 150 ft (QC): 6 Gait Persons Needed: 0 Gait Assistive Device: Cane Single Point Pt ambulated from room, around RN station down trevino and back two times, pt was SBA. Pt ambulated with a steady GT, pt veered off coarse at one pt but self corrected. Treatments Pt ambulated from room, around RN station down trevino and back two times, pt was SBA. Pt ambulated with a steady GT, pt veered off coarse at one pt but self corrected. Once PT was concluded, pt was seated in recliner with call light and tray in reach and all needs met. Assessment Current Status: Good Progress Pt would benefit from continued skilled PT to improve on activity tolerance and strength. PT Short Term Goals Short Term Goals Time Frame: Dec 10, 2021 Roll Left & Right: 6 Sit to lyin Lying to sitting on side of be: 6 Sit to stand: 4 (SBA) Chair/rkm-ov-vopmg transfer: 4 (SBA) Walk 10 feet: 4 (SBA) Walk 50 feet with two turns: 4 (SBA) Walk 150 feet: 4 (SBA) PT Fdc Goals Fdc Goals PT Fdc Goals Time Frame: Dec 24, 2021 Roll Left & Right (QC): 6 Sit to Lying (QC): 6 Lying-Sitting on Side/Bed(QC): 6 Sit to Stand (QC): 6 Chair/Qtk-tm-Fplca Xfer(QC): 6 Toilet Transfer (QC): 6 Car Transfer (QC): 6 Does the Patient Walk: Yes Walk 10 feet (QC): 6 Walk 50ft with 2 Turns (QC): 6 Walk 150 ft (QC): 6 Walking 10ft on Uneven Surface: 6 1 Step (curb) (QC): 4 (SBA) 4 Steps (QC): 4 (SBA) 12 Steps (QC): 4 (SBA) Picking up an Object (QC): 4 (SBA using public health teacher) Wheel 50 feet with 2 turns (QC: 9 Wheel 150 feet: 9 PT Plan Problem List Problem List: Activity Tolerance, Functional Strength Treatment/Plan Treatment Plan: Continue Plan of Care Treatment Plan: Bed Mobility, Education, Functional Activity Jase, Functional Strength, Group Therapy, Gait, Safety, Therapeutic Exercise, Transfers Treatment Duration: Dec 24, 2021 Frequency: At least 5 of 7 days/Wk (IRF) Estimated Hrs Per Day: 1.5 hours per day Patient and/or Family Agrees t: Yes Time/GCodes Time In: 1043 Time Out: 1102 Total Billed Treatment Time: 19 Total Billed Treatment 1,GT ROSI WESTBROOK NANOTECHNOLOGY ENGINEERING TECHNOLOGIST Dec 08, 2021 11:53
[2021-12-08] MEDS: ISOSORBIDE MONONITRATE 30 MG (IMDUR) TAB PO SCH (14:43)
[2021-12-08 19:48] VITALS: BP 101/64
[2021-12-08] MEDS: ROSUVASTATIN 20 MG (CRESTOR) TABLET PO SCH (20:49)
[2021-12-08] MEDS: LORATADINE (CLARITIN) 10 MG TAB PO SCH (20:49)
[2021-12-08] MEDS: eZETimibe 10 MG (ZETIA) TABLET PO SCH (20:49)
[2021-12-08] MEDS: traZODone 50 MG (DESYREL) TAB PO SCH (20:49)
[2021-12-09] MEDS: ENOXAPARIN 100 MG/1 ML (LOVENOX) SYR SC SCH ×2 (04:10→16:07)
[2021-12-09] MEDS: DICLOFENAC 1% GEL 100 GM (VOLTAREN) TUBE TP SCH ×3 (06:21→18:10)
[2021-12-09] MEDS: MULTIVIT W/MINERALS TAB (THERAGRAN M) PO SCH (06:21)
[2021-12-09] MEDS: LEVOTHYROXINE 50 MCG (LEVOTHROID) TAB PO SCH (06:21)
[2021-12-09 08:00] VITALS: BP 113/74
[2021-12-09] MEDS: RANOLAZINE ER 500 MG TAB (RANEXA) PO SCH ×2 (08:29→20:36)
[2021-12-09] MEDS: SENNOSIDES 8.6 MG (SENOKOT) TAB PO SCH ×2 (08:30→19:24)
[2021-12-09] MEDS: DOCUSATE SODIUM 100 MG (COLACE) CAP PO SCH ×2 (08:30→19:23)
[2021-12-09] MEDS: meTOproloL SUCCINATE 50 MG (TOPROL XL) TAB PO SCH (08:30)
[2021-12-09] MEDS: amLODIPine 2.5MG (NORVASC) TAB PO SCH (08:30)
[2021-12-09] MEDS: MAGNESIUM OXIDE (MAG-OX)400 MG TAB PO SCH ×2 (08:30→18:11)
[2021-12-09] MEDS: polyethylene glycoL POWDER 17 GM (MIRALAX) PACK PO SCH ×2 (08:30→19:23)
[2021-12-09] MEDS: ASPIRIN E.C. 81 MG (ECOTRIN) TAB PO SCH (08:30)
[2021-12-09] MEDS: FLUTICASONE NASAL SPRAY (FLONASE) 16 GM BTL NS SCH (08:31)
[2021-12-09 14:20] VITALS: BP 122/61
[2021-12-09 15:00] VITALS: BP 98/53
--- NOTE | 2021-12-09 15:34 | PM&R Progress Note ---
Subjective HPI/CC On Admission Date Seen by Provider: Dec 09, 2021 Time Seen by Provider: 15:00 Subjective/Events-last exam 12/09/2021: Patient doing well Having a few symptoms of facial numbness but it is bilateral and both arms and legs are a bit weak but NIH score is 0 Mild hypotension could be the cause of her symptoms so I am holding the Imdur 12/08/2021: No issues No pain DC [facility] 12/07/2021: No major issues DC planned for Friday No falls Using cane 12/06/2021: Pt is doing really well No dysphasia No pain is reported No falls 12/05/2021: No major issues Walking around really well No other concerns 12/04/2021: Pt is doing really well No major issues Bowels are moving No falls Checked meds and labs Right sided weakness remains Review of Systems General: Fatigue, Malaise Objective Exam Vital Signs Vital Signs Date Time Temp Pulse Resp B/P (MAP) Pulse Ox O2 Delivery O2 Flow Rate FiO2 12/09/21 21:05 Room Air 12/09/21 20:00 36.2 58 18 104/57 (73) 97 Capillary Refill : General Appearance: No Apparent Distress, WD/WN, Chronically ill, Obese HEENT: PERRL/EOMI, Normal ENT Inspection, Pharynx Normal Neck: Full Range of Motion, Normal Inspection, Non Tender, Supple, Carotid Bruit Respiratory: Chest Non Tender, Lungs Clear, Normal Breath Sounds, No Accessory Muscle Use, No Respiratory Distress Cardiovascular: Regular Rate, Rhythm, No Edema, No Gallop, No JVD, No Murmur, Normal Peripheral Pulses Gastrointestinal: Normal Bowel Sounds, No Organomegaly, No Pulsatile Mass, Non Tender, Soft Back: Normal Inspection, No CVA Tenderness, No Vertebral Tenderness Extremity: Normal Capillary Refill, Normal Inspection, Normal Range of Motion, Non Tender, No Calf Tenderness, No Pedal Edema Neurologic/Psychiatric: Alert, Oriented x3, language translator II-XII Norm as Tested, Abnormal Gait, Depressed Affect, Motor Weakness (Right-sided weakness 4/5 upper extremity and 3/5 lower extremity) Skin: Normal Color, Warm/Dry Lymphatic: No Adenopathy Results/Procedures Lab Patient resulted labs reviewed. FIM Transfers Therapy Code Descriptions/Definitions Functional [place] Measure: 0=Not Assessed/NA 4=Minimal Assistance 1=Total Assistance 5=Supervision or Setup 2=Maximal Assistance 6=Modified [place] 3=Moderate Assistance 7=Complete IndependenceSCALE: Activities may be completed with or without assistive devices. 1-Ejeofclweh-pzkszug completes the activity by him/herself with no assistance from a helper. 5-Set-up or Clean-up Assistance-helper sets up or cleans up; patient completes activity. [place] assists only prior to or following the activity. 4-Supervision or Touching Assistance-helper provides verbal cues and/or touching/steadying and/or contact guard assistance as patient completes activity. Assistance may be provided throughout the activity or intermittently. 3-Partial/Moderate Assistance-helper does LESS THAN HALF the effort. [place] lifts, holds or supports trunk or limbs, but provides less than half the effort. 2-Substantial/Maximal Assistance-helper does MORE THAN HALF the effort. [place] lifts or holds trunk or limbs and provides more than half the effort. 4-Vlpmpecox-pxpalb does ALL the effort. Patient does none of the effort to complete the activity. Or, the assistance of 2 or more helpers is required for the patient to complete the activity. If activity was not attempted, code reason: 7-Patient Refused. 9-Not Applicable-not attempted and the patient did not perform the activity before the current illness, exacerbation or injury. 10-Not Attempted due to Environmental Limitations-(lack of equipment, weather restraints, etc.). 88-Not Attempted due to Medical Conditions or Safety Concerns. Roll Left to Right (QC): 6 Sit to Lying (QC): 6 Sit to Stand (QC): 6 Chair/Ewz-uu-Vxflt Xfer(QC): 6 Car Transfer (QC): 6 Gait Training Does the Patient Walk?: Yes Distance: 300' Walk 10 feet (QC): 6 Walk 50 ft with 2 Turns(QC): 6 Walk 150 ft (QC): 6 Walking 10ft/uneven surface-QC: 6 Gait Persons Needed: 0 Gait Assistive Device: Cane Single Point Wheelchair Training Does the Pt Use a Wheelchair?: No Wheel 50 ft with 2 turns (QC): 9 Wheel 150 ft (QC): 9 Type of Wheelchair: N/A Stair Training Stair Training: Handrails/: 1 handrail #of Steps: 12 1 Step (curb) (QC): 6 4 Steps (QC): 6 12 Steps (QC): 6 Stairs: Pattern: Step to Balance Picking up an Object (QC): 6 ADL-Treatment Eating (QC): 6 Oral Hygiene (QC): 6 Bathing Location: L Arm, R Arm, L Upper Leg, R Upper Leg, L Lower Leg (including foot), R Lower Leg (including foot), Chest, Abdomen, Buttocks, Perineal Area Shower/Bathe Self (QC): 6 Upper Body Dressing (QC): 6 Lower Body Dressing (QC): 4 On/Off Footwear (QC): 6 Toileting Hygiene (QC): 4 Toilet Transfer (QC): 4 Assessment/Plan Assessment and Plan Assess & Plan/Chief Complaint Assessment: 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 Obesity Rheumatoid arthritis Plan: Aggressive rehab Supportive care Pain control DC Mata 12/04/2021: Tely Monitor closely 12/05/2021: Supportive care 12/06/2021: DC Tely 12/07/2021: Cane used now instead of a walker 12/08/2021: Monitor closely 12/09/2021: DC home tomorrow (1) CVA (cerebral vascular accident) (2) History of coronary artery disease Status: Acute (3) HLD (hyperlipidemia) Status: Chronic (4) HTN (hypertension) Status: Chronic (5) Obesity Status: Chronic LULU WAGNER DO Dec 09, 2021 15:34
[2021-12-09] MEDS: ISOSORBIDE MONONITRATE 30 MG (IMDUR) TAB PO SCH (16:20)
[2021-12-09 20:00] VITALS: BP 104/57
[2021-12-09] MEDS: eZETimibe 10 MG (ZETIA) TABLET PO SCH (20:36)
[2021-12-09] MEDS: LORATADINE (CLARITIN) 10 MG TAB PO SCH (20:37)
[2021-12-09] MEDS: traZODone 50 MG (DESYREL) TAB PO SCH (20:37)
[2021-12-09] MEDS: ROSUVASTATIN 20 MG (CRESTOR) TABLET PO SCH (20:37)
[2021-12-10] MEDS: DICLOFENAC 1% GEL 100 GM (VOLTAREN) TUBE TP SCH ×3 (00:01→14:01)
[2021-12-10] MEDS: ENOXAPARIN 100 MG/1 ML (LOVENOX) SYR SC SCH (02:14)
[2021-12-10] MEDS ORDERED: FLUT16SP22 NS (05:59)
[2021-12-10] MEDS ORDERED: ISOS30TA82 PO (05:59)
--- NOTE | 2021-12-10 06:00 | Discharge Summary ---
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 Obesity Rheumatoid arthritis Plan: Aggressive rehab Supportive care Pain control DC Mata 12/04/2021: Tely Monitor closely 12/05/2021: Supportive care 12/06/2021: DC Tely 12/07/2021: Cane used now instead of a walker 12/08/2021: Monitor closely 12/09/2021: DC home tomorrow (1) CVA (cerebral vascular accident) (2) History of coronary artery disease Status: Acute (3) HLD (hyperlipidemia) Status: Chronic (4) HTN (hypertension) Status: Chronic (5) Obesity Status: Chronic Discharge Summary Discharge Physical Examination Allergies: Coded Allergies: nitrofurantoin (Verified Allergy, Severe, 03/02/20) shellfish derived (Verified Allergy, Severe, 03/02/20) atorvastatin (Verified Allergy, Intermediate, 03/02/20) pt states it makes her hurt all over/extreme pain Penicillins (Unverified Allergy, Mild, 06/09/08) Proton Pump Inhibitors (Verified Allergy, Unknown, ANGINA, 02/20/21) gluten (Verified Allergy, Unknown, 12/05/21) codeine (Verified Adverse Reaction, Mild, 12/03/21) Night terrors, psych response Vitals & I&Os Vital Signs Date Time Temp Pulse Resp B/P (MAP) Pulse Ox O2 Delivery O2 Flow Rate FiO2 12/10/21 14:02 35.1 76 16 126/63 97 Room Air General Appearance: Alert, Oriented X3, Cooperative Respiratory: Clear to Auscultation Cardiovascular: Regular Rate Neuro: Normal Gait, Normal Speech, Strength at 5/5 X4 Ext Psych/Mental Status: Mental Status NL Hospital Course Was the Problem List Reviewed?: Yes Standard hospital course after admitted following CVA s/p tPA and dramatic improvement in her neuro deficits but she did require aggressive therapy in order to regain residual deficits of right sided weakness especially right leg strength. She was able to graduate to cane from walker. Cardiology did follow her progress during stay and loop recorder showed no evidence of atrial fib. Overall she did well and was ready to DC for outpatient therapy and her Imdur was decreased from 60mg to 30 mg due to hypotension. Labs (last 24 hrs) Laboratory Tests 12/04/21 05:24: White Blood Count 6.6, Red Blood Count 3.92, Hemoglobin 12.7, Hematocrit 36, Mean Corpuscular Volume 92, Mean Corpuscular Hemoglobin 32, Mean Corpuscular Hemoglobin Concent 35, Red Cell Distribution Width 12.5, Platelet Count 200, Mean Platelet Volume 9.2, Immature Granulocyte % (Auto) 0, Neutrophils (%) (Auto) 58, Lymphocytes (%) (Auto) 28, Monocytes (%) (Auto) 12, Eosinophils (%) (Auto) 2, Basophils (%) (Auto) 1, Neutrophils # (Auto) 3.8, Lymphocytes # (Auto) 1.8, Monocytes # (Auto) 0.8, Eosinophils # (Auto) 0.2, Basophils # (Auto) 0.0, Immature Granulocyte # (Auto) 0.0, Sodium Level 138, Potassium Level 4.3, Ch loride Level 106, Carbon Dioxide Level 24, Anion Gap 8, Blood Urea Nitrogen 15, Creatinine 0.84, Estimat Glomerular Filtration Rate 80, BUN/Creatinine Ratio 18, Glucose Level 101, Calcium Level 8.6, Corrected Calcium 9.1, Total Bilirubin 0.6, Aspartate Amino Transf (AST/SGOT) 16, Alanine Aminotransferase (ALT/SGPT) 18, Alkaline Phosphatase 52, Total Protein 5.7L, Albumin 3.4 Pending Labs Laboratory Tests 12/04/21 05:24: White Blood Count 6.6, Red Blood Count 3.92, Hemoglobin 12.7, Hematocrit 36, Mean Corpuscular Volume 92, Mean Corpuscular Hemoglobin 32, Mean Corpuscular Hemoglobin Concent 35, Red Cell Distribution Width 12.5, Platelet Count 200, Mean Platelet Volume 9.2, Immature Granulocyte % (Auto) 0, Neutrophils (%) (Auto) 58, Lymphocytes (%) (Auto) 28, Monocytes (%) (Auto) 12, Eosinophils (%) (Auto) 2, Basophils (%) (Auto) 1, Neutrophils # (Auto) 3.8, Lymphocytes # (Auto) 1.8, Monocytes # (Auto) 0.8, Eosinophils # (Auto) 0.2, Basophils # (Auto) 0.0, Immature Granulocyte # (Auto) 0.0, Sodium Level 138, Potassium Level 4.3, Chloride Level 106, Carbon Dioxide Level 24, Anion Gap 8, Blood Urea Nitrogen 15, Creatinine 0.84, Estimat Glomerular Filtration Rate 80, BUN/Creatinine Ratio 18, Glucose Level 101, Calcium Level 8.6, Corrected Calcium 9.1, Total Bilirubin 0.6, Aspartate Amino Transf (AST/SGOT) 16, Alanine Aminotransferase (ALT/SGPT) 18, Alkaline Phosphatase 52, Total Protein 5.7, Albumin 3.4 Discharge Home Medications: Active Scripts Active Fluticasone Propionate 50 Mcg/Actuation [place].susp 0 [place] NS DAILY 2 puffs daily Isosorbide Mononitrate ER (Isosorbide Mononitrate) 30 Mg Tab.er.24h 30 Mg PO 1500 Reported Chlortabs (Chlorpheniramine Maleate) 4 Mg Tablet 4 Mg PO Q6H PRN Benadryl Allergy (Diphenhydramine HCl) 25 Mg Tablet 75 Mg PO HS TAKES 3 (25MG) TABS Rosuvastatin Calcium 40 Mg Tablet 40 Mg PO HS Ozempic (Semaglutide) 1 Mg/0.75 Ml (4 Mg/3 Ml) Pen.injctr 1 Mg INJ TUES Ranolazine ER (Ranolazine) 1,000 Mg Tab.er.12h 1,000 Mg PO BID Tylenol (Acetaminophen) 325 Mg Capsule 325-650 Mg PO QID PRN Trazodone HCl 50 Mg Tablet 12.5-25 Mg PO HS TAKES TO OF A 50MG TAB Oxymetazoline HCl 0.05 % [place] 2-3 Sprays NSEACH Q12H PRN Mag-Oxide (Magnesium Oxide) 200 Mg Magnesium Tablet 250 Mg PO BID Amlodipine Besylate 2.5 Mg Tablet 2.5 Mg PO DAILY Citalopram HBr (Citalopram Hydrobromide) 20 Mg Tablet 20 Mg PO HS Loratadine 10 Mg Tablet 10 Mg PO BID Ventolin Hfa (Albuterol Sulfate) 90 Mcg Hfa.aer.ad 2 Puff INH Q4H PRN Zetia (Ezetimibe) 10 Mg Tablet 10 Mg PO HS Clopidogrel (Clopidogrel Bisulfate) 75 Mg Tablet 75 Mg PO DAILY Aspirin EC (Aspirin) 81 Mg Tablet.dr 81 Mg PO DAILY Levothyroxine Sodium 50 Mcg Tablet 50 Mcg PO DAILY Nitroglycerin 0.4 Mg Tab.subl 0.4 Mg SL UD PRN Metoprolol Succinate 50 Mg Tab.er.24h 50 Mg PO DAILY Diphenhydramine HCl 25 Mg Capsule 25 Mg PO DAILY Instructions to patient/family Please see electronic discharge instructions given to patient. Diagnosis/Problems Diagnosis/Problems (1) CVA (cerebral vascular accident) (2) History of coronary artery disease Status: Acute (3) HLD (hyperlipidemia) Status: Chronic (4) HTN (hypertension) Status: Chronic (5) Obesity Status: Chronic LULU WAGNER DO Dec 10, 2021 06:00
[2021-12-10] MEDS: LEVOTHYROXINE 50 MCG (LEVOTHROID) TAB PO SCH (06:09)
[2021-12-10] MEDS: MULTIVIT W/MINERALS TAB (THERAGRAN M) PO SCH (06:10)
--- NOTE | 2021-12-10 07:23 | Occupational Ther Daily Note ---
OT Current Status-Daily Note Subjective Pt alert, sitting in recliner. Pt agrees to therapy. No c/o pain. Pt to discharge to home today, QC's gathered. Mental Status/Objective Patient Orientation: Person, Place, Time, Situation Acute change in mental status: 0 Inattention: 0 Disorganized thinkin Altered level of consciousness: 0 ADL-Treatment Pt independent with gathering supplies for dressing. Pt ambulating with SPC independently. Independent with toileting. Sitting on shower bench 100% of the time using grabbars and hand held shower, completes independently. Independent with upper/lower body dressing and footwear. Standing at sink to complete oral care and grooming, independently. Eating independent. No dizziness or LOB noted throughout session. After session, pt sitting in recliner with call light/phone in reach. All needs met. Therapy Code Descriptions/Definitions Functional [place] Measure: 0=Not Assessed/NA 4=Minimal Assistance 1=Total Assistance 5=Supervision or Setup 2=Maximal Assistance 6=Modified [place] 3=Moderate Assistance 7=Complete IndependenceSCALE: Activities may be completed with or without assistive devices. 7-Esbkpneven-rakvrws completes the activity by him/herself with no assistance from a helper. 5-Set-up or Clean-up Assistance-helper sets up or cleans up; patient completes activity. [place] assists only prior to or following the activity. 4-Supervision or Touching Assistance-helper provides verbal cues and/or touching/steadying and/or contact guard assistance as patient completes activity. Assistance may be provided throughout the activity or intermittently. 3-Partial/Moderate Assistance-helper does LESS THAN HALF the effort. [place] lifts, holds or supports trunk or limbs, but provides less than half the effort. 2-Substantial/Maximal Assistance-helper does MORE THAN HALF the effort. [place] lifts or holds trunk or limbs and provides more than half the effort. 1-Vrfudrwuw-spqdro does ALL the effort. Patient does none of the effort to complete the activity. Or, the assistance of 2 or more helpers is required for the patient to complete the activity. If activity was not attempted, code reason: 7-Patient Refused. 9-Not Applicable-not attempted and the patient did not perform the activity before the current illness, exacerbation or injury. 10-Not Attempted due to Environmental Limitations-(lack of equipment, weather restraints, etc.). 88-Not Attempted due to Medical Conditions or Safety Concerns. Eating (QC): 6 Oral Hygiene (QC): 6 Shower/Bathe Self (QC): 6 Upper Body Dressing (QC): 6 Lower Body Dressing (QC): 6 On/Off Footwear: 6 Toileting Hygiene (QC): 6 Toilet Transfer (QC): 6 OT Ironworker Apprentice Goals Longterm Goals Time Frame: Dec 21, 2021 Acute change in mental status: 0 Inattention: 0 Disorganized thinkin Altered level of consciousness: 0 Eating (QC): 6 (met) Oral Hygiene (QC): 6 (met) Toileting Hygiene (QC): 6 (met) Shower/Bathe Self (QC): 6 (met) Upper Body Dressing (QC): 6 (met) Lower Body Dressing (QC): 6 (met) On/Off Footwear (QC): 6 (met) Additional Goals: 1-Demonstrate ADL Tasks, 2-Verbalize Understanding, 3- ImproveStrength/Jase 1=Demonstrate adherence to instructed precautions during ADL tasks. 2=Patient will verbalize/demonstrate understanding of assistive devices/modifications for ADL. 3=Patient will improve strength/tolerance for activity to enable patient to perform ADL's. OT Education/Plan Discharge Recommendations Plan/Recommendations: Discharge/Goals Met (pt to discharge to home today, has all equipment needed) Treatment Plan/Plan of Care Patient would benefit from OT for education, treatment and training to promote independence in ADL's, mobility, safety and/or upper extremity function for ADL's. Plan of Care: ADL Retraining, Functional Mobility, Group Exercise/Act as Ind, UE Funct Exercise/Act Treatment Duration: Dec 21, 2021 Frequency: At least 5 of 7 days/Wk (IRF) Estimated Hrs Per Day: 1.5 hours per day Agreement: Yes Rehab Potential: Good Time/GCodes Start Time: 06:55 Stop Time: 07:45 Total Time Billed (hr/min): 50 Billed Treatment Time 1 visit-ADL 3 (50 min) ELAINE RUIZ Dec 10, 2021 07:23
[2021-12-10] MEDS: DOCUSATE SODIUM 100 MG (COLACE) CAP PO SCH (07:52)
[2021-12-10] MEDS: polyethylene glycoL POWDER 17 GM (MIRALAX) PACK PO SCH (07:53)
[2021-12-10] MEDS: SENNOSIDES 8.6 MG (SENOKOT) TAB PO SCH (07:53)
[2021-12-10 08:00] VITALS: BP 126/63
[2021-12-10] MEDS: RANOLAZINE ER 500 MG TAB (RANEXA) PO SCH (08:19)
[2021-12-10] MEDS: MAGNESIUM OXIDE (MAG-OX)400 MG TAB PO SCH (08:19)
[2021-12-10] MEDS: ASPIRIN E.C. 81 MG (ECOTRIN) TAB PO SCH (08:19)
[2021-12-10] MEDS: meTOproloL SUCCINATE 50 MG (TOPROL XL) TAB PO SCH (08:19)
[2021-12-10] MEDS: amLODIPine 2.5MG (NORVASC) TAB PO SCH (08:19)
[2021-12-10] MEDS: FLUTICASONE NASAL SPRAY (FLONASE) 16 GM BTL NS SCH (08:20)
--- NOTE | 2021-12-10 08:49 | Physical Therapy Daily Note ---
PT Daily Note-Current Subjective Patient sitting in chair upon PT arrival, agreeable to treatment. Rates pain currently at 0/10. Pain Section J - Health Conditions 1. Rarely or not at all 2. Occasionally 3. Frequently 4. Almost constantly 8. Unable to answer Pain Effect on Sleep: 1 Pain Interference with Therapy: 1 Pain Interference w/Day-to-Day: 1 Mental Status Patient Orientation: Person, Place, Time, Situation Transfers SCALE: Activities may be completed with or without assistive devices. 1-Kgyxarmvug-zdektvc completes the activity by him/herself with no assistance from a helper. 5-Set-up or Clean-up Assistance-helper sets up or cleans up; patient completes activity. Rogers assists only prior to or following the activity. 4-Supervision or Touching Assistance-helper provides verbal cues and/or touching/steadying and/or contact guard assistance as patient completes activity. Assistance may be provided throughout the activity or intermittently. 3-Partial/Moderate Assistance-helper does LESS THAN HALF the effort. Rogers lifts, holds or supports trunk or limbs, but provides less than half the effort. 2-Substantial/Maximal Assistance-helper does MORE THAN HALF the effort. Rogers lifts or holds trunk or limbs and provides more than half the effort. 5-Buehspioz-jcegis does ALL the effort. Patient does none of the effort to complete the activity. Or, the assistance of 2 or more helpers is required for the patient to complete the activity. If activity was not attempted, code reason: 7-Patient Refused. 9-Not Applicable-not attempted and the patient did not perform the activity before the current illness, exacerbation or injury. 10-Not Attempted due to Environmental Limitations-(lack of equipment, weather restraints, etc.). 88-Not Attempted due to Medical Conditions or Safety Concerns. Roll Left & Right (QC): 6 Sit to Lying (QC): 6 Lying to Sitting/Side of Bed(Q: 6 Sit to Stand (QC): 6 Chair/Zaa-ss-Jbcsk Xfer(QC): 6 Toilet Transfer (QC): 6 Car Transfer (QC): 6 Weight Bearing Full Weight Bearing Full Weight Bearing Gait Training Does the Patient Walk?: Yes Distance: 300 Walk 10 feet (QC): 6 Walk 50 ft with 2 Turns(QC): 6 Walk 150 ft (QC): 6 Walking 10ft/uneven surface-QC: 6 Gait Persons Needed: 1 Gait Assistive Device: Cane Single Point Wheelchair Training Does the Pt Use a Wheelchair?: No Wheel 50 ft with 2 turns (QC): 9 Wheel 150 ft (QC): 9 Stair Training #of Steps: 12 1 Step (curb) (QC): 6 4 Steps (QC): 6 12 Steps (QC): 6 Stairs: Pattern: Step to Balance Picking up an Object (QC): 4 Assessment Current Status: Excellent Progress Patient tolerated treatment well. Demonstrates good overall improvement in mobility, functional strength and gait. Balance appeared good this treatment session, however patient has reported instances of minimal loss of balance, all of which she was able to self correct. Patient demonstrates complete independence with all bed mobility and transfers. She is able to perform 4 steps x 3 repetitions with cane and right handrail ascending. Patient demonstrates SBA for picking object off of the floor as she requires extra time to perform and while in the down position demonstrates mild difficulty returning to the upright position. Patient in chair post treatment with all needs met, nursing notified, call light in reach. PT Short Term Goals Short Term Goals Time Frame: Dec 10, 2021 Roll Left & Right: 6 Sit to lyin Lying to sitting on side of be: 6 Sit to stand: 4 (SBA) Chair/vrf-zb-llkfl transfer: 4 (SBA) Walk 10 feet: 4 (SBA) Walk 50 feet with two turns: 4 (SBA) Walk 150 feet: 4 (SBA) PT Rag Sorter Goals Detention Goals PT Detention Goals Time Frame: Dec 24, 2021 Roll Left & Right (QC): 6 (MET) Sit to Lying (QC): 6 (MET) Lying-Sitting on Side/Bed(QC): 6 (MET) Sit to Stand (QC): 6 (MET) Chair/Hkd-mz-Nrgfx Xfer(QC): 6 (MET) Toilet Transfer (QC): 6 (MET) Car Transfer (QC): 6 (MET) Does the Patient Walk: Yes Walk 10 feet (QC): 6 (MET) Walk 50ft with 2 Turns (QC): 6 (METMET) Walk 150 ft (QC): 6 (MET) Walking 10ft on Uneven Surface: 6 (MET) 1 Step (curb) (QC): 4 (SBA) 4 Steps (QC): 4 (SBA) 12 Steps (QC): 4 (SBA) Picking up an Object (QC): 4 (SBA using motor hotel manager) Does the Pt use WC or Scooter?: No Wheel 50 feet with 2 turns (QC: 9 Wheel 150 feet: 9 PT Plan Treatment/Plan Treatment Plan: Discontinue PT, goals met, Discontinue PT Treatment Plan: Bed Mobility, Education, Functional Activity Jase, Functional Strength, Group Therapy, Gait, Safety, Therapeutic Exercise, Transfers Treatment Duration: Dec 24, 2021 Frequency: At least 5 of 7 days/Wk (IRF) Estimated Hrs Per Day: 1.5 hours per day Patient and/or Family Agrees t: Yes Safety Risks/Education Patient Education: Gait Training, Transfer Techniques, Steps Teaching Recipient: Patient Teaching Methods: Demonstration, Discussion Response to Teaching: Verbalize Understanding, Return Demonstration Time/GCodes Time In: 0820 Time Out: 0845 Total Billed Treatment Time: 25 Total Billed Treatment Visit, DIETER French JOHN A PT Dec 10, 2021 08:49
--- NOTE | 2021-12-10 08:56 | Therapy Team Discharge Summary ---
Therapy Discharge Summary Discharge Recommendations Date of Discharge 12/10/21 Therapy D/C Recommendations: Physical Therapy Home Care, Physical Therapy Outpatient Physical Therapy Patient tolerated therapy well. Demonstrates good overall improvement in mobility, functional strength and gait. Balance appeared good this treatment session, however patient has reported instances of minimal loss of balance, all of which she was able to self correct. Patient demonstrates complete independence with all bed mobility and transfers. She is able to perform 4 steps x 3 repetitions with cane and right handrail ascending. Patient demonstrates SBA for picking object off of the floor as she requires extra time to perform and while in the down position demonstrates mild difficulty returning to the upright position. Roll Left to Right (QC): 6 Sit to Lying (QC): 6 Lying to Sitting/Side of Bed(Q: 6 Sit to Stand (QC): 6 Chair/Hax-ht-Cahfj Xfer(QC): 6 Toilet Transfer (QC): 6 Car Transfer (QC): 6 Does the Patient Walk: Yes Mode of Locomotion: Walk Anticipated Mode of Locomotion: Walk Walk 10 feet (QC): 6 Walk 50 ft with 2 Turns(QC): 6 Walk 150 ft (QC): 6 Walking 10ft on uneven surface: 6 Distance: 150' Gait Assistive Device: Cane Single Point Does the Pt Use a Wheelchair: No Wheel 50 ft with 2 turns (QC): 9 Wheel 150 ft (QC): 9 Type of Wheelchair: N/A #of Steps: 12 1 Step (curb) (QC): 6 4 Steps (QC): 6 12 Steps (QC): 6 Walking Assistive Device: Walker Balance Sitting Static: Normal Balance Sitting Dynamic: Normal Balance-Standing Static: Good Picking up an Object (QC): 4 Occupational Therapy Decreased Activ Tolerance, Decreased Safety Aware, Decreased UE Strength, Impaired Coordination, Impaired Funct Balance Eating (QC): 6 Oral Hygiene (QC): 6 Shower/Bathe Self (QC): 6 Upper Body Dressing (QC): 6 Lower Body Dressing (QC): 6 On/Off Footwear (QC): 6 Toileting Hygiene (QC): 6 BIMS CAM BIMS IRF JANESSA BIMS: IRF JANESSA BIMS Response (Comments) Value Repitition of Three Words Three 3 Recalls Socks Yes, No Cue Required 2 Recalls Blue Yes, No Cue Required 2 Recalls Bed Yes, No Cue Required 2 Year Correct Month Accurate Within 5 Days Day Correct Total Should Staff Asses. Mental St.: No Memory/Recall Ability: Current Season CAM Mental Status Change/Baseline: 0 Inattention: 0 Disorganized thinkin Altered level of consciousness: 0 PT Assisted Goals Assisted Goals PT Assisted Goals Time Frame: Dec 24, 2021 Scoring Section J - Health Conditions 1. Rarely or not at all 2. Occasionally 3. Frequently 4. Almost constantly 8. Unable to answer Roll Left to Right (QC): 6 (MET) Sit to Lying (QC): 6 (MET) Lying-Sitting on Side/Bed(QC): 6 (MET) Sit to Stand (QC): 6 (MET) Chair/Biw-za-Mykpg Xfer(QC): 6 (MET) Car Transfer (QC): 6 (MET) Does the Patient Walk: Yes Walk 10 feet (QC): 6 (MET) Walk 10ft-Uneven Surface(QC): 6 (MET) Walk 50ft with 2 Turns (QC): 6 (METMET) Walk 150 ft (QC): 6 (MET) Does the Pt use WC or Scooter?: No Wheel 50 feet with 2 turns (QC: 9 1 Step (curb) (QC): 4 (SBA) 4 Steps (QC): 4 (SBA) 12 Steps (QC): 4 (SBA) Picking up an Object (QC): 4 (SBA using factory focus technician) OT Rn Lactation Goals Assisted Goals Time Frame: Dec 21, 2021 Acute change in mental status: 0 Inattention: 0 Disorganized thinkin Altered level of consciousness: 0 Eating (QC): 6 (met) Oral Hygiene (QC): 6 (met) Toileting Hygiene (QC): 6 (met) Shower/Bathe Self (QC): 6 (met) Upper Body Dressing (QC): 6 (met) Lower Body Dressing (QC): 6 (met) On/Off Footwear (QC): 6 (met) Additional Goals: 1-Demonstrate ADL Tasks, 2-Verbalize Understanding, 3- ImproveStrength/Jase 1=Demonstrate adherence to instructed precautions during ADL tasks. 2=Patient will verbalize/demonstrate understanding of assistive devices/modifications for ADL. 3=Patient will improve strength/tolerance for activity to enable patient to perform ADL's. ROSITA JERONIMO PT Dec 10, 2021 08:56
--- NOTE | 2021-12-10 10:19 | IRF PAI BIMS ---
BIMS CAM BIMS Expression of Ideas and Wants: Without Difficulty Understanding Verbal Content: Understands (Discharge BIMS/CAM) IRF JANESSA BIMS: IRF JANESSA BIMS Response (Comments) Value Repitition of Three Words Three 3 Recalls Socks Yes, No Cue Required 2 Recalls Blue Yes, No Cue Required 2 Recalls Bed Yes, No Cue Required 2 Year Correct Month Accurate Within 5 Days Day Correct Total 9 Should Staff Asses. Mental [address].: No Memory/Recall Ability: Current Season CAM Mental Status Change/Baseline: 0 Inattention: 0 Disorganized thinkin Altered level of consciousness: 0 ELAINE RUIZ Dec 10, 2021 10:19
[2021-12-10 14:02] VITALS: BP 126/63
--- NOTE | 2021-12-10 14:13 | Therapy Team Discharge Summary ---
Therapy Discharge Summary Discharge Recommendations Date of Discharge Therapy D/C Recommendations: Physical Therapy Home Care, Physical Therapy Outpatient Physical Therapy Roll Left to Right (QC): 6 Sit to Lying (QC): 6 Lying to Sitting/Side of Bed(Q: 6 Sit to Stand (QC): 6 Chair/Sre-ur-Ahgpi Xfer(QC): 6 Toilet Transfer (QC): 6 Car Transfer (QC): 6 Does the Patient Walk: Yes Mode of Locomotion: Walk Anticipated Mode of Locomotion: Walk Walk 10 feet (QC): 6 Walk 50 ft with 2 Turns(QC): 6 Walk 150 ft (QC): 6 Walking 10ft on uneven surface: 6 Distance: 150' Gait Assistive Device: Cane Single Point Does the Pt Use a Wheelchair: No Wheel 50 ft with 2 turns (QC): 9 Wheel 150 ft (QC): 9 Type of Wheelchair: N/A #of Steps: 12 1 Step (curb) (QC): 6 4 Steps (QC): 6 12 Steps (QC): 6 Walking Assistive Device: Walker Balance Sitting Static: Normal Balance Sitting Dynamic: Normal Balance-Standing Static: Good Picking up an Object (QC): 4 Occupational Therapy Pt admitted to [facility] s/p CVA. At [facility], pt was independent with ADLs and functional mobility, no AD. Upon initial evaluation, pt was independent with eating, set up with oral care and UE dressing, CGA showering, LE dressing and toileting, and SBA footwear. OT tx focused on increasing BUE strength and activity tolerance and increasing safety and independence with ADLs and functional mobility. Pt made good progress towards goals, attaining all LTGs. No further OT recommendations. Pt to discharge home on this date, d/c from OT at this time. Decreased Activ Tolerance, Decreased Safety Aware, Decreased UE Strength, Impaired Coordination, Impaired Funct Balance Eating (QC): 6 Oral Hygiene (QC): 6 Shower/Bathe Self (QC): 6 Upper Body Dressing (QC): 6 Lower Body Dressing (QC): 6 On/Off Footwear (QC): 6 Toileting Hygiene (QC): 6 PT Head Turbine Operator Goals Prison Goals PT Prison Goals Time Frame: Dec 24, 2021 Scoring Section J - Health Conditions 1. Rarely or not at all 2. Occasionally 3. Frequently 4. Almost constantly 8. Unable to answer Roll Left to Right (QC): 6 (MET) Sit to Lying (QC): 6 (MET) Lying-Sitting on Side/Bed(QC): 6 (MET) Sit to Stand (QC): 6 (MET) Chair/Nsw-ja-Qrakw Xfer(QC): 6 (MET) Car Transfer (QC): 6 (MET) Does the Patient Walk: Yes Walk 10 feet (QC): 6 (MET) Walk 10ft-Uneven Surface(QC): 6 (MET) Walk 50ft with 2 Turns (QC): 6 (METMET) Walk 150 ft (QC): 6 (MET) Does the Pt use WC or Scooter?: No Wheel 50 feet with 2 turns (QC: 9 1 Step (curb) (QC): 4 (SBA) 4 Steps (QC): 4 (SBA) 12 Steps (QC): 4 (SBA) Picking up an Object (QC): 4 (SBA using flag football coach) OT Head Turbine Operator Goals Head Turbine Operator Goals Time Frame: Dec 21, 2021 Acute change in mental status: 0 Inattention: 0 Disorganized thinkin Altered level of consciousness: 0 Eating (QC): 6 (met) Oral Hygiene (QC): 6 (met) Toileting Hygiene (QC): 6 (met) Shower/Bathe Self (QC): 6 (met) Upper Body Dressing (QC): 6 (met) Lower Body Dressing (QC): 6 (met) On/Off Footwear (QC): 6 (met) Additional Goals: 1-Demonstrate ADL Tasks, 2-Verbalize Understanding, 3- ImproveStrength/Jase 1=Demonstrate adherence to instructed precautions during ADL tasks. 2=Patient will verbalize/demonstrate understanding of assistive devices/modifications for ADL. 3=Patient will improve strength/tolerance for activity to enable patient to perform ADL's. CHELSEY CASAREZ OT Dec 10, 2021 14:13
[2021-12-10] MEDS ORDERED: ISOSORBIDE MONONITRATE 30 MG (IMDUR) TAB PO SCH (15:00)
== END 2021-12-10 14:00 | disposition home or self-care (01) | DRG 57 ==
PROVIDERS: ADMIT Internal Medicine; ATTEND Internal Medicine
DX: I69.351 Hemiplegia and hemiparesis following cerebral infarction affecting right dominant side (principal); Z68.41 Body mass index [BMI] 40.0-44.9, adult; I25.119 Atherosclerotic heart disease of native coronary artery with unspecified angina pectoris; I10 Essential (primary) hypertension; E78.00 Pure hypercholesterolemia, unspecified; M34.9 Systemic sclerosis, unspecified; I49.3 Ventricular premature depolarization; G47.33 Obstructive sleep apnea (adult) (pediatric); M06.9 Rheumatoid arthritis, unspecified; E03.9 Hypothyroidism, unspecified; F41.9 Anxiety disorder, unspecified; F32.A Depression, unspecified; K90.0 Celiac disease; I25.2 Old myocardial infarction; E66.9 Obesity, unspecified; Z86.73 Personal history of transient ischemic attack (TIA), and cerebral infarction without residual deficits; Z79.01 Long term (current) use of anticoagulants; Z79.85 Long-term (current) use of injectable non-insulin antidiabetic drugs; Z79.82 Long term (current) use of aspirin; Z82.49 Family history of ischemic heart disease and other diseases of the circulatory system; Z88.8 Allergy status to other drugs, medicaments and biological substances; Z88.5 Allergy status to narcotic agent; Z88.0 Allergy status to penicillin; Z91.013 Allergy to seafood
CPT/HCPCS: 36415; 80053; 85025; 93880; 94760

== ENCOUNTER 2022-05-13 19:27 | Emergency (ER) | payer MEDICARE, MEDICAID ==
[~2022-05-13] VITALS: Ht 155 cm; Wt 93.4 kg
[~2022-05-13 19:27] MED LIST changes: +CLOP-31 PO; -CLOP75TA69 PO; +DIPH-1122 PO; -DIPH25CA48 PO; +DIPH25TA65 PO; +FLUT16SP22 NS; +RANO10005 PO; +SEMA1PEN3 INJ
[2022-05-13 19:35] VITALS: BP 110/91
[2022-05-13] MEDS ORDERED: NEOM28.34 TP (19:50)
--- NOTE | 2022-05-13 19:52 | ED Upper Extremity ---
General Stated Complaint: LEFT WRIST BURN Source: patient Exam Limitations: no limitations History of Present Illness Date Seen by Provider: May 13, 2022 Time Seen by Provider: 19:48 Initial Comments Patient is a 56-year-old female presents ED with a potential burn to her left volar wrist. This occurred around 620 this evening when she spilled her soup. This resulted in superficial redness and small blisters. She reports ice helps with pain. Denies of any numbness and tingling or obvious change in range of motion. She is up-to-date on her tetanus. Denies fever, chills, nausea, vomiting, diarrhea Allergies and Home Medications Allergies Coded Allergies: nitrofurantoin (Verified Allergy, Severe, 03/02/20) shellfish derived (Verified Allergy, Severe, 03/02/20) atorvastatin (Verified Allergy, Intermediate, 03/02/20) pt states it makes her hurt all over/extreme pain Penicillins (Unverified Allergy, Mild, 06/09/08) Proton Pump Inhibitors (Verified Allergy, Unknown, ANGINA, 02/20/21) gluten (Verified Allergy, Unknown, 12/05/21) codeine (Verified Adverse Reaction, Mild, 12/03/21) Night terrors, psych response Patient Home Medication List Home Medication List Reviewed: Yes Acetaminophen (Tylenol) 325 Mg Capsule, 325-650 MG PO QID PRN for PAIN-MILD (1- 4), (Reported) Entered as Reported by: CT GATICA on 12/01/21 1719 Albuterol Sulfate (Ventolin Hfa) 90 Mcg Hfa.aer.ad, 2 PUFF INH Q4H PRN for SHORTNESS OF BREATH, (Reported) Entered as Reported by: ISABELLA CARDOZO on 07/18/21 1548 Amlodipine Besylate (Amlodipine Besylate) 2.5 Mg Tablet, 2.5 MG PO DAILY, (Reported) Entered as Reported by: ELIZABETH NOLASCO on 10/01/21 1354 Aspirin (Aspirin EC) 81 Mg Tablet.dr, 81 MG PO DAILY, (Reported) Entered as Reported by: ISABELLA CARDOZO on 02/20/21 1335 Chlorpheniramine Maleate (Chlortabs) 4 Mg Tablet, 4 MG PO Q6H PRN for ALLERGY SYMPTOMS, (Reported) Entered as Reported by: ISABELLA CARDOZO on 12/03/21 1229 Citalopram Hydrobromide (Citalopram HBr) 20 Mg Tablet, 20 MG PO HS, (Reported) Entered as Reported by: ISABELLA CARDOZO on 07/18/21 1548 Clopidogrel Bisulfate (Clopidogrel) 75 Mg Tablet, 75 MG PO DAILY, (Reported) Entered as Reported by: ISABELLA CARDOZO on 02/20/21 1335 Diphenhydramine HCl (Diphenhydramine HCl) 25 Mg Capsule, 25 MG PO DAILY, (Reported) Entered as Reported by: ISABELLA CARDOZO on 03/02/20 1138 Diphenhydramine HCl (Benadryl Allergy) 25 Mg Tablet, 75 MG PO HS, (Reported) Entered as Reported by: ISABELLA CARDOZO on 12/03/21 1229 Ezetimibe (Zetia) 10 Mg Tablet, 10 MG PO HS, (Reported) Entered as Reported by: YENNI WOMACK on 07/18/21 1316 Fluticasone Propionate (Fluticasone Propionate) 50 Mcg/Actuation [place].susp, 0 SPRAY NS DAILY Prescribed by: LULU WAGNER on 12/10/21 05 Isosorbide Mononitrate (Isosorbide Mononitrate ER) 30 Mg Tab.er.24h, 30 MG PO 1500 Prescribed by: LULU WAGNER on 12/10/21 05 Levothyroxine Sodium (Levothyroxine Sodium) 50 Mcg Tablet, 50 MCG PO DAILY, (Reported) Entered as Reported by: ISABELLA CARDOZO on 02/20/21 1335 Loratadine (Loratadine) 10 Mg Tablet, 10 MG PO BID, (Reported) Entered as Reported by: ISABELLA CARDOZO on 07/18/21 1548 Magnesium Oxide (Mag-Oxide) 200 Mg Magnesium Tablet, 250 MG PO BID, (Reported) Entered as Reported by: CT GATICA on 12/01/21 1719 Metoprolol Succinate (Metoprolol Succinate) 50 Mg Tab.er.24h, 50 MG PO DAILY, (Reported) Entered as Reported by: ISABELLA CARDOZO on 04/20/20 1600 Neomycn/Baci Zn/Pmyx Bs/Pramox (Neosporin + Pain Relief Oint) 3.5-10K-10 Oint...g., 28.3 GM TP BID Prescribed by: LEEROY BLEVINS on 05/13/22 1950 Nitroglycerin (Nitroglycerin) 0.4 Mg Tab.subl, 0.4 MG SL UD PRN for CHEST PAIN, (Reported) Entered as Reported by: ISABELLA CARDOZO on 06/27/20 0954 Oxymetazoline HCl (Oxymetazoline HCl) 0.05 % [place], 2-3 SPRAYS NSEACH Q12H PRN for CONGESTION, (Reported) Entered as Reported by: CT GATICA on 12/01/21 171 Ranolazine (Ranolazine ER) 1,000 Mg Tab.er.12h, 1,000 MG PO BID, (Reported) Entered as Reported by: ISABELLA CARDOZO on 12/03/21 1229 Rosuvastatin Calcium (Rosuvastatin Calcium) 40 Mg Tablet, 40 MG PO HS, (Reported) Entered as Reported by: ISABELLA CARDOZO on 12/03/21 1229 Semaglutide (Ozempic) 1 Mg/0.75 Ml (4 Mg/3 Ml) Pen.injctr, 1 MG INJ TUES, (Reported) Entered as Reported by: ISABELLA CARDOZO on 12/03/21 1229 Trazodone HCl (Trazodone HCl) 50 Mg Tablet, 12.5-25 MG PO HS, (Reported) Entered as Reported by: CT GATICA on 12/01/211718 Review of Systems Constitutional: No chills, No diaphoresis, No malaise, No weakness EENTM: No blurred vision, No double vision, No mouth pain, No mouth swelling, No throat pain, No throat swelling Respiratory: No cough, No dyspnea on exertion Cardiovascular: No chest pain, No edema Gastrointestinal: No abdominal pain, No diarrhea, No nausea, No vomiting Genitourinary: No decreased output, No discharge, No dysuria, No frequency Musculoskeletal: No back pain; joint pain, joint swelling Skin: change in color All Other Systems Reviewed Negative Unless Noted: Yes Past Cschzah-Vvbgwh-Etjpnp Hx Immunizations Up To Date Tetanus Booster (TDap): Unknown First/Initial COVID19 Vaccinat: 2020 Second COVID19 Vaccination Tu: 2020 Third COVID19 Vaccination Date: NO Seasonal Allergies Seasonal Allergies: Yes Past Medical History Surgeries: Yes (C-SPINE SURGERY; LEFT ELBOW ULNAR NERVE SURGERY;CARDIAC CATH- STENT X 1) Cardiac, Coronary Stent, Gallbladder, Orthopedic Respiratory: Yes Asthma, Sleep Apnea Currently Using CPAP: Yes Cardiac: Yes (WI X 2 ; STENT X 1, HAS CARDIAC LOOP RECORDER) Atrial Fibrillation, Chronic Edema/Swelling, Coronary Artery Disease, Heart Attack, High Cholesterol, Hypertension, Rheumatic Fever Neurological: Yes (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, L HEARING LOSS, L CHEEK NUMB) 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, 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 Genitourinary: No Gastrointestinal: Yes (S/P CHOLECYSTECTOMY; CELIAC DISEASE) Gall Bladder Disease Musculoskeletal: Yes (SCLERODERMA; C-SPINE SURGERY; LEFT ELBOW ULNAR NERVE SURGERY) Rheumatoid Arthritis Endocrine: Yes Hypothyroidsim HEENT: Yes (SINUS PROBLEMS,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) Cancer: No Psychosocial: Yes Anxiety, Depression Integumentary: Yes Psoriasis Blood Disorders: No Family Medical History Alcoholism G8 BROTHER, Onset:15's - 20 Arthritis 19 MOTHER, Onset:Adolescence G8 BROTHER, Onset:Adolescence G8 SISTER, Onset:25's - 30 Asthma G8 BROTHER Cataracts 19 FATHER, Onset:60 years & older Deafness or hearing loss 19 FATHER Dementia 19 FATHER Diabetes mellitus 19 MOTHER G8 BROTHER Hypertension 19 FATHER G8 BROTHER Myocardial infarction 19 FATHER, Onset:60 years & older G8 BROTHER, Onset:40's - 50 Psychosocial problem G8 BROTHER, Onset:25's - 30 Severe allergy 19 FATHER, Onset: 19 MOTHER, Onset:Childhood PAST SURGICAL HISTORY: -CERVICAL SPINE SURGERY -LEFT ELBOW ULNAR NERVE SURGERY -CHOLECYSTECTOMY -CARDIAC CATHS-- -03/02/[address] NINO: CONCLUSIONS: 1. Coronary artery disease primarily consisting of 95% ostial stenosis of a first diagonal of the left anterior descending to which successful balloon angioplasty was carried out with reduced the stenosis to less than 30%. Elsewhere, the patient exhibits mild to moderate diffuse coronary plaques. 2. Normal global left ventricular systolic function with an ejection fraction of approximately 60%. 3. Elevated left ventricular end-diastolic pressure. -HAD STENT X 1 PLACED 06/10/20 AT [place]. -LAST CARDIAC CATH DONE HERE 06/27/[address] NINO: CONCLUSIONS: 1. Mild coronary artery disease. 2. Patent stent in the mid left anterior descending artery. 3. Normal global left ventricular systolic function with ejection fraction of 55% to 60%. 4. Normal left ventricular end-diastolic pressure. Physical Exam Vital Signs Capillary Refill : Height, Weight, BMI Height: '" Weight: lbs. oz. kg; 43.28 BMI Method:Estimated General Appearance: WD/WN, no apparent distress HEENT: PERRL/EOMI, normal ENT inspection, TMs normal, pharynx normal Neck: non-tender, full range of motion, supple, normal inspection Cardiovascular: regular rate, rhythm, no edema, no gallop, no JVD Respiratory: chest non-tender, lungs clear, normal breath sounds, no respirat ory distress, no accessory muscle use Gastrointestinal: normal bowel sounds, non tender, soft, no organomegaly Back: normal inspection, no CVA tenderness Shoulder: normal inspection, non-tender Elbow/Forearm: normal inspection, non-tender, no evidence of injury, normal ROM Wrist: Yes pain (Left volar wrist) Neurologic/Psychiatric: sheeter helper II-XII nml as tested, no motor/sensory deficits, alert, normal mood/affect, oriented x 3 Skin: other (Very superficial first-degree burn to the left volar wrist. Very small blisters with very small area of erythema) Procedures/Interventions Suture Size: 5-0 Departure Communication (PCP) Patient has very small superficial first-degree burn to the left volar wrist. Small few blisters with very small area of erythema. Normal active range of motion of the left wrist. Up-to-date on her tetanus. Discussed with patient recommend Neosporin twice a day for the next 14 days. Anti-inflammatories for pain. Discussed wound care. Discussed potential blister formation and to not rupture the blisters. Continue with topical antibiotic ointment. Discussed gauze and wound care. Follow-up your PCP in 2 to 3 days for reevaluation. Return precaution were discussed. No evidence of necrosis of the skin Impression Primary Impression: First degree burn Disposition: 01 HOME, SELF-CARE Condition: Stable Departure-Patient Inst. Decision time for Depature: 19:49 Referrals: ISABELLA UREÑA DO (PCP/Family) Primary Care Physician Patient Instructions: [facility] Neomycn/Baci Zn/Pmyx Bs/Pramox (Neosporin + Pain Relief Oint) 3.5-10K-10 Oint...g. 28.3 GM TP BID, #2 EA Prov: PADMA NO 05/13/22 PADMA NO May 13, 2022 19:52
== END 2022-05-13 19:55 | disposition home or self-care (01) ==
LOC: EDUNIT# 19:27 → ER 19:29
DX: T23.272A Burn of second degree of left wrist, initial encounter (principal); G47.30 Sleep apnea, unspecified; Z88.0 Allergy status to penicillin; Z99.89 Dependence on other enabling machines and devices; X10.1XXA Contact with hot food, initial encounter
CPT/HCPCS: 99281

== ENCOUNTER 2022-06-25 06:46 | Day surgery (SDC) | payer MEDICARE, MEDICAID ==
[~2022-06-25] VITALS: Ht 154.9 cm; Wt 92.8 kg
[2022-06-25] VITALS (11 sets, daily range): BP systolic 89–131; BP diastolic 46–76
[~2022-06-25 06:46] MED LIST changes: +NEOM28.34 TP
[2022-06-25] MEDS ORDERED: NS IV 1000 ML 1,000 ML ONE (06:56)
[2022-06-25] MEDS ORDERED: HEParin (CATH LAB) 2,000 ML IV ONE (06:56)
[2022-06-25] MEDS ORDERED: LIDOCAINE 1% INJ 20 ML VIAL ONE ×2 (06:56→09:07)
[2022-06-25] MEDS ORDERED: NS IV 1000 ML 1,000 ML IV SCH ×2 (07:00→09:45)
[2022-06-25] MEDS ORDERED: diphenhydrAMINE 50 MG/ML INJ (BENADRYL) ONE (07:02)
[2022-06-25] MEDS ORDERED: methylPREDNISolone 125 MG (Solu-MEDROL) VIAL ONE (07:02)
[2022-06-25] MEDS ORDERED: [UNRECOGNIZED DRUG - CODE] PO (07:27)
[2022-06-25] MEDS ORDERED: TACR30OI4 TP (07:27)
[2022-06-25] MEDS ORDERED: SIME125C95 PO (07:27)
[2022-06-25] MEDS ORDERED: SENN-109 PO (07:27)
[2022-06-25] MEDS ORDERED: CETI-458 PO (07:27)
[2022-06-25] MEDS ORDERED: MTP100TCR PO (07:27)
[2022-06-25] MEDS ORDERED: MAGN400T7 PO (07:27)
[2022-06-25] MEDS ORDERED: LIRA0.6P3 SQ (07:27)
[2022-06-25] MEDS ORDERED: MULT-1136 PO (07:27)
[2022-06-25] MEDS ORDERED: FURO20TA4 PO (07:27)
[2022-06-25 07:34] LABS: HEMATOCRIT 41 % (35-52); HEMOGLOBIN 14.1 g/dL (11.5-16.0); MEAN CORPUSCULAR HEMOGLOBIN 32 pg (25-34); MEAN CORPUSCULAR HGB CONC 35 g/dL (32-36); MEAN CORPUSCULAR VOLUME 92 fL (80-99); MEAN PLATELET VOLUME 9.2 fL (9.0-12.2); PLATELET COUNT 253 10^3/uL (130-400)
[2022-06-25 07:48] LABS: PROTHROMBIN TIME PATIENT 13.4 SEC (12.2-14.7)
[2022-06-25 07:55] LABS: ALBUMIN 4.1 GM/DL (3.2-4.5); BILIRUBIN,TOTAL 0.4 MG/DL (0.1-1.0); CALCIUM 9.1 MG/DL (8.5-10.1); CREATININE SERUM 0.86 MG/DL (0.60-1.30); POTASSIUM 4.1 MMOL/L (3.6-5.0); TOTAL PROTEIN 6.8 GM/DL (6.4-8.2)
[2022-06-25] MEDS ORDERED: fentaNYL INJ 100 MCG/2 ML AMP ONE (08:15)
[2022-06-25] MEDS ORDERED: MIDAZOLAM 5 MG/5 ML (VERSED) VIAL ONE (08:15)
--- NOTE | 2022-06-25 09:44 | Cardiac Procedure Note-CS/ASA ---
Pre-Procedure Note Pre-Op Procedure Note Date of Available H&P: Jun 13, 2022 Date H&P Reviewed: Jun 25, 2022 Time H&P Reviewed: 08:30 History & Physical: H&P Reviewed, No changes noted Moderate Sedation PreProcedure ASA Score 3 Airway Lungs Heart ASA score ASA 1: a normal healthy patient ASA 2: a patient with a mild systemic disease (mid diabetes, controlled hypertension, obesity ASA 3: a patient with a severe systemic disease that limits activity (angina, COPD, prior Myocardial infarction) ASA 4: a patient with an incapacitating disease that is a constant threat to life (CHF, renal failure) ASA 5: a moribund patient not expected to survive 24 hrs. (ruptured aneurysm) ASA 6: a declared brain- patient whose organs are being harvested. For emergent operations, add the letter E after the classification Mallampati Classification Grade 2 Sedation Plan Analgesia, Amnesia, Plan communicated to team members The patient is an appropriate candidate to undergo the planned procedure, sedation, and anesthesia. The patient immediately re-assessed prior to indication. SERENITY NINO MD FACP FAC CCDS Jun 25, 2022 09:44
[2022-06-25] MEDS ORDERED: PATIENT MAY USE OWN MEDS, ALL PO SCH (09:45)
--- NOTE | 2022-06-25 09:47 | Discharge Inst-Cardiology ---
Discharge Inst-Cardiac Discharge Medications Continued Medications: Acetaminophen (Tylenol) 325 Mg Capsule 325-650 MG PO QID PRN for PAIN-MILD (1-4), CAP Aspirin (Aspirin EC) 81 Mg Tablet.dr 81 MG PO DAILY, TAB Cetirizine HCl (Allergy Relief) 10 Mg Tablet 10 MG PO PRN PRN for ALLERGY, TAB Citalopram Hydrobromide (Citalopram HBr) 20 Mg Tablet 20 MG PO HS, TAB Clopidogrel Bisulfate (Clopidogrel) 75 Mg Tablet 75 MG PO DAILY, TAB Diphenhydramine HCl (Benadryl Allergy) 25 Mg Tablet 75 MG PO HS, TAB TAKES 3 (25MG) TABS Diphenhydramine HCl (Allergy Relief) 25 Mg Tablet 25 MG PO AM AND NOON, TAB Ezetimibe (Zetia) 10 Mg Tablet 10 MG PO HS, TAB Fluticasone Propionate (Fluticasone Propionate) 50 Mcg/Actuation [place].susp 0 SPRAY NS DAILY, #1 EA 2 puffs daily Furosemide (Furosemide) 20 Mg Tablet 20 MG PO PRN PRN for EDEMA, TAB Levothyroxine Sodium (Levothyroxine Sodium) 50 Mcg Tablet 50 MCG PO DAILY, TAB Liraglutide (Victoza 3-Logan) 0.6 Mg/0.1 Ml (18 Mg/3 Ml) Pen.injctr 1.8 MG SQ DAILY, EA Magnesium Oxide (Magnesium Oxide) 400 Mg Tablet 400 MG PO DAILY, TAB Metoprolol Succinate (Metoprolol Succinate) 100 Mg Tab.er.24h 100 MG PO DAILY, TAB Multivitamin (Multivitamin) 1 Each Tablet 1 EACH PO DAILY, TAB Nitroglycerin (Nitroglycerin) 0.4 Mg Tab.subl 0.4 MG SL UD PRN for CHEST PAIN, TAB Ranolazine (Ranolazine ER) 1,000 Mg Tab.er.12h 1000 MG PO BID, TAB Rosuvastatin Calcium (Rosuvastatin Calcium) 40 Mg Tablet 40 MG PO HS, TAB Sennosides/Docusate Sodium (Senna-S Tablet) 8.6 Mg-50 Mg Tablet 1 EACH PO PRN PRN for CONSTIPATION, TAB Simethicone (Gas Relief) 125 Mg Capsule 125 MG PO PRN PRN for GAS, CAP Tacrolimus (Tacrolimus) 0.1 % Oint..gm. 30 GM TP BID PRN for PRN, EA Trazodone HCl (Trazodone HCl) 50 Mg Tablet 25-50 MG PO HS, TAB TAKES 1/2 TO 1 OF A 50MG TAB SERENITY NINO MD FACP FAC CCDS Jun 25, 2022 09:47
--- NOTE | 2022-06-25 09:51 | Discharge Inst-Post CATH ---
Discharge Inst-CATH/EP Post Cardiac Cath/EP D/C Inst Follow Up/Plan F/u with Dr Vora in 2 weeks ACTIVITY * Go Home directly and rest. * Limit activity of the leg (or wrist if it was used) for 7 days including aerobics, swimming, jogging, bicycling, etc. * Restrict stair-climbing for 7 days if possible, if not, climb up with your no n-cath leg, then bring together on the same step. * Avoid lifting, pushing, pulling or excessive movement of the affected ext remity for 7 days. * Customary sexual activity may be resumed after 2 days-use caution not to use a position that strains or causes pain to the affected extremity. * No driving for 24 hours. * NO SMOKING. * Avoid straining for bowel movements for 7 days. * Gentle walking on level ground is allowed. * Returning to work will depend on the type of procedure and the results. Your doctor will discuss this with you. CALL YOUR DOCTOR FOR ANY OF THE FOLLOWING: *If bleeding from the puncture site occurs- Apply gentle pressure to site with clean cloth and call your doctor or EMS. * If a knot or lump forms under the skin, increases in size, or causes pain. * If bruising appears to be worsening or moving further down your leg instead of disappearing. * Temperature above 101 F. CARE OF YOUR GROIN INCISION; * Bruising or purple discoloration of the skin near the puncture site is common. * You may shower only, no bathtub bathing for 5 days. Be careful to avoid slipping as your leg may feel stiff. * If a closure device was used on your femoral artery, please see the attached guide regarding care of the device and your leg. * Leave dressing on FOR 24 hours. CARE OF YOUR WRIST INCISION; * Bruising or purple discoloration of the skin near the puncture site is common. * You may shower. * DO NOT submerge wrist. * Leave dressing on FOR 24 hours. SERENITY VORA MD [facility] CCDS Jun 25, 2022 09:51
--- NOTE | 2022-06-25 09:57 | Cardiac Cath Report ---
CARDIAC CATHETERIZATION DATE OF PROCEDURE: 06-25-22 INDICATION: See below HISTORY: The patient is a 56 year old female with known CAD and a recent equivocal stress test PROCEDURES PERFORMED: 1. [facility] PROCEDURE DESCRIPTION: After informed consent and in the fasting state, left heart catheterization was performed through the R femoral artery utilizing a [] Estonian system by percutaneous approach. Standard [place] catheters were utilized for the diagnostic portion of the procedure. All catheters were exchanged over a guidewire. Post-procedure angiography of the femoral artery through the sheath followed by Mynx closure HEMODYNAMICS: LVEDP 11 mmHg. 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 LVEF 50-55% PERCUTANEOUS CORONARY INTERVENTION: []. IMPRESSION: 1. Moderate CAD, patent stent in the prox LAD 2. LVEDP 10 mmHg 3. LVEF 50-55% SERENITY NINO MD [facility] CCDS Jun 25, 2022 09:57
== END 2022-06-25 13:05 | disposition home or self-care (01) ==
LOC: CATH 06:46 → SDC 10:10 → CATH 13:05
PROVIDERS: ATTEND Internal Medicine Cardiovascular Disease
DX: I25.10 Atherosclerotic heart disease of native coronary artery without angina pectoris (principal); R00.2 Palpitations; G47.33 Obstructive sleep apnea (adult) (pediatric); I10 Essential (primary) hypertension; M34.9 Systemic sclerosis, unspecified; K90.0 Celiac disease; R42 Dizziness and giddiness; E78.2 Mixed hyperlipidemia; I65.23 Occlusion and stenosis of bilateral carotid arteries; I49.3 Ventricular premature depolarization; R94.39 Abnormal result of other cardiovascular function study; Z95.5 Presence of coronary angioplasty implant and graft; Z79.899 Other long term (current) drug therapy; Z79.82 Long term (current) use of aspirin; Z86.73 Personal history of transient ischemic attack (TIA), and cerebral infarction without residual deficits
CPT/HCPCS: 80053; 80061; 85027; 85610; 85730; 87081; 93005; 93458; C1760; C1894; 36415

== ENCOUNTER → 2022-08-26 | Outpatient (CLI) | payer MEDICARE, MEDICAID ==
[~2022-08-26] MED LIST changes: +CETI-458 PO; +FURO20TA4 PO; +LIRA0.6P3 SQ; +MAGN400T7 PO; +MTP100TCR PO; +MULT-1136 PO; +SENN-109 PO; +SIME125C95 PO; +TACR30OI4 TP; +[UNRECOGNIZED DRUG - CODE] PO
== END ==
LOC: CARD 10:00
PROVIDERS: ATTEND Internal Medicine Critical Care Medicine
DX: I27.23 Pulmonary hypertension due to lung diseases and hypoxia (principal); M34.9 Systemic sclerosis, unspecified
CPT/HCPCS: 93306

== ENCOUNTER 2022-09-21 13:52 | Observation (INO) | payer MEDICARE, MEDICAID ==
[~2022-09-21] VITALS: Ht 154 cm; Wt 95.2 kg
--- NOTE | 2022-09-21 14:19 | ED General ---
General Chief Complaint: Neuro-Stroke Like Symptoms Stated Complaint: STROKE LIKE SYMPTOMS Nursing Triage Note: WOKE UP THIS AM AT 0900 WITH BLURRED VISION AND TROUBLE SPEAKING. REPORTS TO EMS SHE IS HAVING CHEST PAIN AND SOA. PT STATES WHEN SHE WENT TO BED LAST NIGHT AT 11 SHE WAS NORMAL. EMS REPORT BLOOD SUGAR OF 99. Source of Information: Patient, EMS History of Present Illness Date Seen by Provider: Sep 21, 2022 Time Seen by Provider: 14:00 Initial Comments Patient is a 57yo female who presents by EMS with a complaint of tremoring all over, "my body isn't working", photophobia, headache, chest pressure. She states she woke up at 9am with all of those symptoms except the chest pressure. The chest pressure started in the ambulance on the way to the hospital - she described it as feeling "like my cat sitting on my chest". No nausea. She was SOB (but also very anxious and tearful). Increased stress this week as she found out her sister who lived in [place] on Friday. She has a history of prior stent to the LAD and stroke a year ago (with right sided deficits). She did do ARU and progressed enough to be able to live at home alone. She states she is compliant with her daily medications including daily baby aspirin and plavix. Is not and has never been a smoker. Denies any recent illnesses. Timing/Duration: 4-6 Hours Severity: Moderate Associated Systoms: Chest Pain, Headaches, Malaise, Weakness, Other ("body hurts" headache - photophobia "the light hurts my eyes") Allergies and Home Medications Allergies Coded Allergies: nitrofurantoin (Verified Allergy, Severe, 03/02/20) shellfish derived (Verified Allergy, Severe, 03/02/20) atorvastatin (Verified Allergy, Intermediate, 03/02/20) pt states it makes her hurt all over/extreme pain Penicillins (Unverified Allergy, Mild, 06/09/08) Proton Pump Inhibitors (Verified Allergy, Unknown, ANGINA, 02/20/21) gluten (Verified Allergy, Unknown, 12/05/21) codeine (Verified Adverse Reaction, Mild, 12/03/21) Night terrors, psych response Patient Home Medication List Home Medication List Reviewed: Yes Acetaminophen (Tylenol) 325 Mg Capsule, 325-650 MG PO QID PRN for PAIN-MILD (1- 4), (Reported) Entered as Reported by: CT GATICA on 12/01/21 1719 Last Action: Held Aspirin (Aspirin EC) 81 Mg Tablet.dr, 81 MG PO DAILY, (Reported) Entered as Reported by: ISABELLA CARDOZO on 02/20/211334 Last Action: Held Citalopram Hydrobromide (Citalopram HBr) 20 Mg Tablet, 20 MG PO HS, (Reported) Entered as Reported by: ISABELLA CARDOZO on 07/18/21 1548 Last Action: Continued Clopidogrel Bisulfate (Clopidogrel) 75 Mg Tablet, 75 MG PO DAILY, (Reported) Entered as Reported by: ISABELLA CARDOZO on 02/20/211334 Last Action: Held Diphenhydramine HCl (Benadryl Allergy) 25 Mg Tablet, 75 MG PO HS, (Reported) Entered as Reported by: ISABELLA CARDOZO on 12/03/21 1229 Last Action: Continued Diphenhydramine HCl (Allergy Relief) 25 Mg Tablet, 25 MG PO AM AND NOON, (Reported) Entered as Reported by: ARTEMIO HOOPER on 06/25/22726 Last Action: Continued Ezetimibe (Zetia) 10 Mg Tablet, 10 MG PO HS, (Reported) Entered as Reported by: YENNI WOMACK on 07/18/21 1316 Last Action: Continued Fluticasone Propionate (Fluticasone Propionate) 50 Mcg/Actuation Perry.susp, 0 SPRAY NS DAILY Prescribed by: LULU WAGNER on 12/10/21 0559 Last Action: Continued Furosemide (Furosemide) 20 Mg Tablet, 20 MG PO PRN PRN for EDEMA, (Reported) Entered as Reported by: ARTEMIO HOOPER on 06/25/22726 Last Action: Continued Levothyroxine Sodium (Levothyroxine Sodium) 50 Mcg Tablet, 50 MCG PO DAILY, (Reported) Entered as Reported by: ISABELLA CARDOZO on 02/20/211334 Last Action: Continued Liraglutide (Victoza 3-Logan) 0.6 Mg/0.1 Ml (18 Mg/3 Ml) Pen.injctr, 1.8 MG SQ DAILY, (Reported) Entered as Reported by: ARTEMIO HOOPER on 06/25/22726 Last Action: Converted Loratadine (Loratadine) 10 Mg Tab.rapdis, 10 MG PO BID, (Reported) Entered as Reported by: VENANCIO ROUSE on 09/22/221133 Last Action: Continued Magnesium Oxide (Magnesium Oxide) 400 Mg Tablet, 400 MG PO DAILY, (Reported) Entered as Reported by: ARTEMIO HOOPER on 06/25/22726 Last Action: Converted Metoprolol Succinate (Metoprolol Succinate) 50 Mg Tab.er.24h, 50 MG PO DAILY, (Reported) Entered as Reported by: VENANCIO ROUSE on 09/22/221136 Last Action: Continued Mexiletine HCl (Mexiletine HCl) 150 Mg Cap, 150 MG PO TID, (Reported) Entered as Reported by: VENANCIO ROUSE on 09/22/22 114 Last Action: Continued Multivitamin (Multivitamin) 1 Each Tablet, 1 EACH PO DAILY, (Reported) Entered as Reported by: ARTEMIO HOOPER on 06/25/22726 Last Action: Converted Nitroglycerin (Nitroglycerin) 0.4 Mg Tab.subl, 0.4 MG SL UD PRN for CHEST PAIN, (Reported) Entered as Reported by: ISABELLA CARDOZO on 06/27/20 0954 Last Action: Continued Ranolazine (Ranolazine ER) 1,000 Mg Tab.er.12h, 1,000 MG PO BID, (Reported) Entered as Reported by: ISABELLA CARDOZO on 12/03/211228 Last Action: Converted Rosuvastatin Calcium (Rosuvastatin Calcium) 40 Mg Tablet, 40 MG PO HS, (Reported) Entered as Reported by: ISABELLA CARDOZO on 12/03/211228 Last Action: Converted Sennosides/Docusate Sodium (Senna-S Tablet) 8.6 Mg-50 Mg Tablet, 1 EACH PO PRN PRN for CONSTIPATION, (Reported) Entered as Reported by: ARTEMIO HOOPER on 06/25/22726 Last Action: Continued Simethicone (Gas Relief) 125 Mg Capsule, 125 MG PO PRN PRN for GAS, (Reported) Entered as Reported by: ARTEMIO HOOPER on 06/25/22726 Last Action: Converted Tacrolimus (Tacrolimus) 0.1 % Oint..gm., 30 GM TP BID PRN for PRN, (Reported) Entered as Reported by: ARTEMIO HOOPER on 06/25/22726 Last Action: Converted Trazodone HCl (Trazodone HCl) 50 Mg Tablet, 25-50 MG PO HS, (Reported) Entered as Reported by: CT GATICA on 12/01/211718 Last Action: Continued Discontinued Medications Cetirizine HCl (Allergy Relief) 10 Mg Tablet, 10 MG PO PRN PRN for ALLERGY, (Reported) Discontinued Reason: No Longer Taking Entered as Reported by: ARTEMIO HOOPER on 06/25/22726 Last Action: Discontinued Metoprolol Succinate (Metoprolol Succinate) 100 Mg Tab.er.24h, 100 MG PO DAILY, (Reported) Discontinued Reason: No Longer Taking Entered as Reported by: ARTEMIO HOOPER on 06/25/22726 Last Action: Discontinued Review of Systems Review of Systems Constitutional: see HPI EENTM: no symptoms reported Respiratory: no symptoms reported Cardiovascular: chest pain Gastrointestinal: no symptoms reported Genitourinary: no symptoms reported Musculoskeletal: other (body aches; "jerking") Skin: no symptoms reported Psychiatric/Neurological: Headache, Weakness All Other Systems Reviewed Negative Unless Noted: Yes Past Fckoorp-Okmrpl-Cwippp Hx Patient Social History Tobacco Use?: No Substance use?: No Alcohol Use?: No Immunizations Up To Date Tetanus Booster (TDap): Unknown First/Initial COVID19 Vaccinat: 2020 Second COVID19 Vaccination Tu: 2020 Third COVID19 Vaccination Date: 2021 Seasonal Allergies Seasonal Allergies: Yes Past Medical History Surgery/Hospitalization HX: SYSTEMIC SCLEROSIS, CELIAC DISEAST, ARTHRITIS, STROKE, CARDIAC STENT Surgeries: Yes (C-SPINE SURGERY; LEFT ELBOW ULNAR NERVE SURGERY;CARDIAC CATH- STENT X 1) Cardiac, Coronary Stent, Gallbladder, Orthopedic Respiratory: Yes Asthma, Sleep Apnea Currently Using CPAP: Yes Cardiac: Yes (HI X 2 ; STENT X 1, HAS CARDIAC LOOP RECORDER) Atrial Fibrillation, Chronic Edema/Swelling, Coronary Artery Disease, Heart Attack, High Cholesterol, Hypertension, Rheumatic Fever Neurological: Yes (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, L HEARING LOSS, L CHEEK NUMB) 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, Stroke ENG[employer]ING [employer] History: Menopausal Genitourinary: No Gastrointestinal: Yes (S/P CHOLECYSTECTOMY; CELIAC DISEASE) Gall Bladder Disease Musculoskeletal: Yes (SCLERODERMA; C-SPINE SURGERY; LEFT ELBOW ULNAR NERVE SURGERY) Rheumatoid Arthritis Endocrine: Yes Hypothyroidsim HEENT: Yes (SINUS PROBLEMS,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) Cancer: No Psychosocial: Yes Anxiety, Depression Integumentary: Yes Psoriasis Blood Disorders: No Family Medical History Alcoholism G8 BROTHER, Onset:15's - 20 Arthritis 19 MOTHER, Onset:Adolescence G8 BROTHER, Onset:Adolescence G8 SISTER, Onset:25's - 30 Asthma G8 BROTHER Cataracts 19 FATHER, Onset:60 years & older Deafness or hearing loss 19 FATHER Dementia 19 FATHER Diabetes mellitus 19 MOTHER G8 BROTHER Hypertension 19 FATHER G8 BROTHER Myocardial infarction 19 FATHER, Onset:60 years & older G8 BROTHER, Onset:40's - 50 Psychosocial problem G8 BROTHER, Onset:25's - 30 Severe allergy 19 FATHER, Onset:[place] 19 MOTHER, Onset:Childhood PAST SURGICAL HISTORY: -CERVICAL SPINE SURGERY -LEFT ELBOW ULNAR NERVE SURGERY -CHOLECYSTECTOMY -CARDIAC CATHS-- -03/02/[address] NINO: CONCLUSIONS: 1. Coronary artery disease primarily consisting of 95% ostial stenosis of a first diagonal of the left anterior descending to which successful balloon angioplasty was carried out with reduced the stenosis to less than 30%. Elsewhere, the patient exhibits mild to moderate diffuse coronary plaques. 2. Normal global left ventricular systolic function with an ejection fraction of approximately 60%. 3. Elevated left ventricular end-diastolic pressure. -HAD STENT X 1 PLACED 06/10/20 AT [facility]. -LAST CARDIAC CATH DONE HERE 06/27/[address] NINO: CONCLUSIONS: 1. Mild coronary artery disease. 2. Patent stent in the mid left anterior descending artery. 3. Normal global left ventricular systolic function with ejection fraction of 55% to 60%. 4. Normal left ventricular end-diastolic pressure. Physical Exam Vital Signs Vital Signs - First Documented 09/21/22 09/21/22 13:53 16:02 Temp 36.3 Pulse 78 Resp 16 B/P (MAP) 130/67 Pulse Ox 98 O2 Delivery Room Air Capillary Refill : Less Than 3 Seconds Height, Weight, BMI Height: '" Weight: lbs. oz. kg; 39.00 BMI Method:Estimated General Appearance: WD/WN, Moderate Distress, Obese, Other (agitated; tearful; tremoring) Eyes: Bilateral Eye Normal Inspection, Bilateral Eye PERRL, Bilateral Eye EOMI HEENT: PERRL/EOMI Neck: Normal Inspection Respiratory: Lungs Clear, Normal Breath Sounds, No Accessory Muscle Use, No Respiratory Distress Cardiovascular: Regular Rate, Rhythm, Normal Peripheral Pulses Gastrointestinal: Normal Bowel Sounds, Non Tender, Soft Extremity: Normal Capillary Refill, Normal Inspection, Normal Range of Motion, No Pedal Edema Neurologic/Psychiatric: Alert, Oriented x3, Other (tearful anxious; global tremors - appears agitated. noted to have a "run" of what appeared to be involuntary left sided lower facial spasms) Skin: Normal Color, Warm/Dry Procedures/Interventions Suture Size: 5-0 Progress/Results/Core Measures Suspected Sepsis SIRS Temperature: Pulse: 78 Respiratory Rate: 16 Laboratory Tests 09/21/22 14:00: White Blood Count 7.3 Blood Pressure / Mean: Laboratory Tests 09/21/22 14:00: Creatinine 0.81, INR Comment 1.0, Platelet Count 271, Total Bilirubin 0.5 Results/Orders Lab Results Laboratory Tests Test 09/21/22 14:00 09/21/22 15:56 Range/Units White Blood Count 7.3 4.3-11.0 10^3/uL Red Blood Count 4.73 3.80-5.11 10^6/uL Hemoglobin 14.9 11.5-16.0 g/dL Hematocrit 43 35-52 % Mean Corpuscular Volume 91 80-99 fL Mean Corpuscular Hemoglobin 32 25-34 pg Mean Corpuscular Hemoglobin Concent 35 32-36 g/dL Red Cell Distribution Width 11.9 10.0-14.5 % Platelet Count 271 130-400 10^3/uL Mean Platelet Volume 8.9 L 9.0-12.2 fL Immature Granulocyte % (Auto) 0 % Neutrophils (%) (Auto) 59 42-75 % Lymphocytes (%) (Auto) 27 12-44 % Monocytes (%) (Auto) 12 0-12 % Eosinophils (%) (Auto) 2 0-10 % Basophils (%) (Auto) 0 0-10 % Neutrophils # (Auto) 4.3 1.8-7.8 10^3/uL Lymphocytes # (Auto) 2.0 1.0-4.0 10^3/uL Monocytes # (Auto) 0.9 0.0-1.0 10^3/uL Eosinophils # (Auto) 0.1 0.0-0.3 10^3/uL Basophils # (Auto) 0.0 0.0-0.1 10^3/uL Immature Granulocyte # (Auto) 0.0 0.0-0.1 10^3/uL Prothrombin Time 13.1 12.2-14.7 SEC INR Comment 1.0 0.8-1.4 Activated Partial Thromboplast Time 30 24-35 SEC Sodium Level 140 135-145 MMOL/L Potassium Level 4.3 3.6-5.0 MMOL/L Chloride Level 108 H 98-107 MMOL/L Carbon Dioxide Level 22 21-32 MMOL/L Anion Gap 10 5-14 MMOL/L Blood Urea Nitrogen 9 7-18 MG/DL Creatinine 0.81 0.60-1.30 MG/DL Estimat Glomerular Filtration Rate 84 BUN/Creatinine Ratio 11 Glucose Level 117 H 70-105 MG/DL Glucometer 118 H 70-110 MG/DL Calcium Level 9.1 8.5-10.1 MG/DL Corrected Calcium 9.0 8.5-10.1 MG/DL Total Bilirubin 0.5 0.1-1.0 MG/DL Aspartate Amino Transf (AST/SGOT) 27 5-34 U/L Alanine Aminotransferase (ALT/SGPT) 29 0-55 U/L Alkaline Phosphatase 67 40-136 U/L Troponin I 0.049 H 0.047 H <0.028 NG/ML Total Protein 6.5 6.4-8.2 GM/DL Albumin 4.1 3.2-4.5 GM/DL My Orders Orders - ARCHANA WHARTON MD Ekg Tracing (09/21/22 13:56) Ed Iv/Invasive Line Start (09/21/22 14:12) Cbc With Automated Diff (09/21/22 14:12) Comprehensive Metabolic Panel (09/21/22 14:12) Ct Head Wo (09/21/22 14:12) Troponin I [place] (09/21/22 14:20) Ekg Tracing (09/21/22 14:57) Protime With Inr (09/21/22 15:25) Partial Thromboplastin Time (09/21/22 15:25) Aspirin Chewable Tablet (Baby Aspirin Ch (09/21/22 15:30) Chest 1 View, Ap/Pa Only (09/21/22 15:33) Troponin I [place] (09/21/22 15:36) Medications Given in ED Vital Signs/I&O 09/21/22 09/21/22 09/21/22 13:53 16:00 16:02 Temp 36.3 36.3 Pulse 78 69 Resp 16 16 B/P (MAP) 130/67 Pulse Ox 98 99 95 O2 Delivery Room Air Room Air Room Air Capillary Refill : Less Than 3 Seconds Point of Care Testing Finger Stick Blood Glucose: 118 Progress Note : Time: 15:49 Progress Note Patient seen and examined by me. Evaluation today includes (initially) physical exam, CBC, BMP, CT head without contrast. Pertinent physical exam findings, WDWN obese female, moderate distress - tearful anxious, agitated and having tremors and jerking movements. Intermittently tearful saying she has body aches and headaches. Heart is regular, Lungs clear, Abdomen is soft and nontender. No LE edema. SHe has equal/symmetric setter cold rolling machine strengths and equal strength and sensation in her LE's bilaterally. PERRLA. no facial droop or dysarthria. NIH zero. Troponin added due to complaint of CP. Notable for LBBB - review of previous medical records show the patient to have never had a LBBB that I could find. I did at the time I recognized this as a new finding ask that her EKG be repeated (patient no longer having chest pressure as well). Her repeat EKG 1 hour after the initial shows resolution of the LBBB - Troponin returned at 0.049. Coags and CXR ordered. DDx based on h/p - ACS,(occluded stent), Takelviebo All labs, ekg, CXR independently reviewed and interpreted by me. Her CBC is normal. BMP is normal. Troponin and EKG's as above. CT head read by radiologist - no acute intracranial abnormalities. When I went back in to ask the patient about her CP she is still remaining asymptomatic. Her tremors are better as long as she "lays quietly". She is no longer agitated or anxious. I explained the findings to her and plan of care. She is agreeable to admission. Case discussed with Dr Wagner and Dr Smith. ECG Initial ECG Impression Date: Sep 21, 2022 Initial ECG Impression Time: 14:00 Initial ECG Rate: 78 Initial ECG Rhythm: Normal Sinus Initial ECG Intervals DC 150 QRS 174 QTc 495 Initial ECG Comparisson: Changed Comment LBBB; no ectopy EKG : EKG Time: 15:00 Rate: 71 Rhythm: Normal Sinus Intervals DC 218 QRS 97 QTc 462 ECG Comparisson: Changed ECG Impression: 1st Degree AV Block Diagnostic Imaging Diagonstic Imaging: Xray Plain Films/CT/US/NM/MRI: chest Comments [facility], [place] NAME: LUCILA BRENNER [facility] REC#: [id number] PT STATUS: REG ER : 1965 PHYSICIAN: ARCHANA WHARTON MD ADMIT DATE: 09/21/22/ER Draft Date of Exam:09/21/22 CT HEAD WO PROCEDURE: CT head without contrast. TECHNIQUE: Multiple contiguous axial images were obtained through the brain without the use of intravenous contrast. Auto Exposure Controls were utilized during the CT exam to meet ALARA standards for radiation dose reduction. INDICATION: Headache. Stroke 1 year ago. COMPARISON: CT head without contrast 12/02/2021. FINDINGS: No intracranial hemorrhage, mass effect, hydrocephalus, or extra-axial fluid collections. No CT evidence of a territorial infarction. Osseous structures are intact. Visualized paranasal sinuses and mastoids are clear. IMPRESSION: No acute intracranial CT findings. Dictated on workstation # [id number] Dict: 09/21/22 1435 Trans: 09/21/22 1440 [id number] Interpreted by: KIMANI CHEW MD Electronically signed by: Diagonstic Imaging: Xray Plain Films/CT/US/NM/MRI: chest Comments Chest xray - independently reviewed and interpreted by [facility] - Linq device left chest - no cardiomegaly; no effusions, no infiltrates Departure Communication (Admissions) Time/Spoke to Admitting Phy: 15:[address] Wagner ([facility] Hospitalist) Time/Spoke to Consulting Phy: 15:[address] Smith - repeat troponin now. Impression Primary Impression: Chest pain Qualified Codes: R07.9 - Chest pain, unspecified Additional Impressions: Elevated troponin Tremors of nervous system Disposition: ADMITTED INPATIENT Condition: Stable Admissions Decision to Admit Reason: Admit from ER (General) Decision to Admit/Date: Sep 21, 2022 Time/Decision to Admit Time: 15:30 Departure-Patient Inst. Referrals: ISABELLA UREÑA DO (PCP/Family) Primary Care Physician Copy Copies To 1: ISABELLA UREÑA DO Copies To 2: SERENITY NINO MD FACP FAC CCDS ARCHANA WHARTON MD Sep 21, 2022 14:19
[2022-09-21 14:22] LABS: BASOPHILS % (AUTO) 0 % (0-10); EOSINOPHILS # (AUTO) 0.1 10^3/uL (0.0-0.3); EOSINOPHILS % (AUTO) 2 % (0-10); HEMATOCRIT 43 % (35-52); HEMOGLOBIN 14.9 g/dL (11.5-16.0); LYMPHOCYTES % (AUTO) 27 % (12-44); MEAN CORPUSCULAR HEMOGLOBIN 32 pg (25-34); MEAN CORPUSCULAR HGB CONC 35 g/dL (32-36); MEAN CORPUSCULAR VOLUME 91 fL (80-99); MEAN PLATELET VOLUME 8.9 fL (9.0-12.2); MONOCYTES # (AUTO) 0.9 10^3/uL (0.0-1.0); MONOCYTES % (AUTO) 12 % (0-12); NEUTROPHILS # (AUTO) 4.3 10^3/uL (1.8-7.8); NEUTROPHILS % (AUTO) 59 % (42-75); PLATELET COUNT 271 10^3/uL (130-400); WHITE BLOOD COUNT 7.3 10^3/uL (4.3-11.0)
[2022-09-21 14:27] LABS: ALBUMIN 4.1 GM/DL (3.2-4.5); POTASSIUM 4.3 MMOL/L (3.6-5.0)
[2022-09-21 14:29] LABS: CALCIUM 9.1 MG/DL (8.5-10.1)
[2022-09-21 14:30] LABS: TOTAL PROTEIN 6.5 GM/DL (6.4-8.2)
[2022-09-21 14:32] LABS: BILIRUBIN,TOTAL 0.5 MG/DL (0.1-1.0)
[2022-09-21 14:33] LABS: CREATININE SERUM 0.81 MG/DL (0.60-1.30)
--- NOTE | 2022-09-21 14:41 | Diagnostic Imaging Report ---
PROCEDURE: CT head without contrast. TECHNIQUE: Multiple contiguous axial images were obtained through the brain without the use of intravenous contrast. Auto Exposure Controls were utilized during the CT exam to meet ALARA standards for radiation dose reduction. INDICATION: Headache. Stroke 1 year ago. COMPARISON: CT head without contrast 12/02/2021. FINDINGS: No intracranial hemorrhage, mass effect, hydrocephalus, or extra-axial fluid collections. No CT evidence of a territorial infarction. Osseous structures are intact. Visualized paranasal sinuses and mastoids are clear. IMPRESSION: No acute intracranial CT findings. Dictated by: Dictated on workstation # [id number]
[2022-09-21] MEDS ORDERED: ASPIRIN 81 MG CHEWABLE TABLET PO ONE (15:30)
[2022-09-21 15:36] LABS: PROTHROMBIN TIME PATIENT 13.1 SEC (12.2-14.7)
--- NOTE | 2022-09-21 15:52 | Diagnostic Imaging Report ---
EXAM: Chest 1 view, AP/PA only INDICATION: Chest pain. COMPARISON: 12/01/2021. FINDINGS: Normal heart size and central pulmonary vascularity. Lungs are clear. No pleural effusion or pneumothorax. Implantable loop recorder. No acute osseous finding. No significant change. IMPRESSION: No acute cardiopulmonary finding. Dictated by: Dictated on workstation # [id number]
[2022-09-21] MEDS ORDERED: polyethylene glycoL POWDER 17 GM (MIRALAX) PACK PO PRN (16:15)
[2022-09-21] MEDS ORDERED: ONDANSETRON 4 MG/2 ML (SDV) Z0FRAN IVP PRN (16:15)
[2022-09-21] MEDS ORDERED: MILK OF MAGNESIA 400 MG/5 ML 30 ML UDC PO PRN (16:15)
[2022-09-21] MEDS ORDERED: LORazepam INJ 2 MG/ML (ATIVAN) VIAL IVP PRN (16:15)
[2022-09-21] MEDS ORDERED: LORazepam 0.5 MG (ATIVAN) TABLET PO PRN (16:15)
[2022-09-21] MEDS ORDERED: ACETAMINOPHEN 325 MG TABLET PO PRN (16:15)
[2022-09-21] MEDS ORDERED: LACTULOSE SYRUP 10GM/15ML (ENULOSE) 30ML UDC PO PRN (16:15)
[2022-09-21] MEDS ORDERED: ONDANSETRON 4 MG/2 ML (SDV) Z0FRAN IV PRN (16:15)
[2022-09-21] MEDS ORDERED: diphenhydrAMINE 25 MG TAB (BENADRYL) PO PRN (16:15)
[2022-09-21] MEDS ORDERED: morphine INJ 4 MG/ML 1 ML (VIAL/SYRINGE) IV PRN (16:15)
[2022-09-21] MEDS ORDERED: PATIENT MAY USE OWN MEDS, ALL PO SCH (16:15)
[2022-09-21] MEDS ORDERED: BISACODYL 10 MG SUPPOSITORY PR PRN (16:15)
[2022-09-21] MEDS ORDERED: diphenhydrAMINE 50 MG/ML INJ (BENADRYL) IVP PRN (16:15)
[2022-09-21] MEDS ORDERED: MELATONIN 3 MG TABLET PO PRN (16:15)
[2022-09-21] MEDS ORDERED: CALCIUM CARBONATE 500 MG CHEW TABLET PO PRN (16:15)
[2022-09-21] MEDS ORDERED: NITROGLYCERIN 0.4 MG SL TABS BTL 25'S SL PRN (16:15)
[2022-09-21] MEDS ORDERED: ANTACID SUSP 30 ML UDC (MYLANTA) PO PRN (16:15)
[2022-09-21] MEDS ORDERED: ONDANSETRON 4 MG (ZOFRAN) ORAL DISSOLVE TAB PO PRN (16:15)
--- NOTE | 2022-09-21 16:16 | Consultation-Cardiology ---
HPI-Cardiology Cardiology Consultation: Date of Consultation 09/21/22 Date of Admission Attending Physician Isabella Whitaker DO Admitting Physician Admitting Physician: Attending Physician: Consulting Physician Elissa MARIANO MD HPI: Time Seen by a Provider: 16:29 Chief Complaint: Borderline troponin This is a 57-year-old lady who has previous history of CAD with PCI to the LAD. Recent coronary angiography done by Dr. Rowland in June 2022 which showed patent stent. She presents with numerous complaints including trembling and chest pressure since 9 AM. She has previous history of CVA as well. She is a non- smoker. She is compliant with aspirin and Plavix. When I saw the patient she was not complaining of any chest pain just trembling Review of Systems-Cardiology Review of Systems Constitutional: As described under HPI Eyes: no symptoms reported Ears/Nose/Throat: no symptoms reported Respiratory: As described under HPI Cardiovascular: chest pain Gastrointestinal: no symptoms reported Genitourinary: no symptoms reported Musculoskeletal: no symptoms reported Skin: no symptoms reported Psychiatric/Neurological: As described under HPI, other (trembling) Hematologic: no symptoms reported All Other Systems Reviewed Negative Unless Noted: Yes EEA-Hbdzdz-Qamanr Hx Patient Social History 2nd Hand Smoke Exposure: Yes Alcohol Use?: No Immunizations Up To Date Tetanus Booster (TDap): Unknown Past Medical History PMH As described under Assessment. Family Medical History Family Medical History: Family h/o father having CAD sisi his 50's. Reports brothers x 2 having CAD and AZ's in thier 40's. Family History: Alcoholism G8 BROTHER, Onset:15's - 20 Arthritis 19 MOTHER, Onset:Adolescence G8 BROTHER, Onset:Adolescence G8 SISTER, Onset:25's - 30 Asthma G8 BROTHER Cataracts 19 FATHER, Onset:60 years & older Deafness or hearing loss 19 FATHER Dementia 19 FATHER Diabetes mellitus 19 MOTHER G8 BROTHER Hypertension 19 FATHER G8 BROTHER Myocardial infarction 19 FATHER, Onset:60 years & older G8 BROTHER, Onset:40's - 50 Psychosocial problem G8 BROTHER, Onset:25's - 30 Severe allergy 19 FATHER, Onset: 19 MOTHER, Onset:Childhood Allergies and Home Medications Allergies Coded Allergies: nitrofurantoin (Verified Allergy, Severe, 03/02/20) shellfish derived (Verified Allergy, Severe, 03/02/20) atorvastatin (Verified Allergy, Intermediate, 03/02/20) pt states it makes her hurt all over/extreme pain Penicillins (Unverified Allergy, Mild, 06/09/08) Proton Pump Inhibitors (Verified Allergy, Unknown, ANGINA, 02/20/21) gluten (Verified Allergy, Unknown, 12/05/21) codeine (Verified Adverse Reaction, Mild, 12/03/21) Night terrors, psych response Patient Home Medication List Home Medication List Reviewed: Yes Acetaminophen (Tylenol) 325 Mg Capsule, 325-650 MG PO QID PRN for PAIN-MILD (1- 4), (Reported) Entered as Reported by: CT GATICA on 12/01/21 1719 Aspirin (Aspirin EC) 81 Mg Tablet.dr, 81 MG PO DAILY, (Reported) Entered as Reported by: ISABELLA CARDOZO on 02/20/21 1335 Cetirizine HCl (Allergy Relief) 10 Mg Tablet, 10 MG PO PRN PRN for ALLERGY, (Reported) Entered as Reported by: ARTEMIO HOOPER on 06/25/22 0727 Citalopram Hydrobromide (Citalopram HBr) 20 Mg Tablet, 20 MG PO HS, (Reported) Entered as Reported by: ISABELLA CARDOZO on 07/18/21 1548 Clopidogrel Bisulfate (Clopidogrel) 75 Mg Tablet, 75 MG PO DAILY, (Reported) Entered as Reported by: ISABELLA CARDOZO on 02/20/21 1335 Diphenhydramine HCl (Benadryl Allergy) 25 Mg Tablet, 75 MG PO HS, (Reported) Entered as Reported by: ISABELLA CARDOZO on 12/03/21 1229 Diphenhydramine HCl (Allergy Relief) 25 Mg Tablet, 25 MG PO AM AND NOON, (Reported) Entered as Reported by: ARTEMIO HOOPER on 06/25/22 0727 Ezetimibe (Zetia) 10 Mg Tablet, 10 MG PO HS, (Reported) Entered as Reported by: YENNI WOMACK on 07/18/21 1316 Fluticasone Propionate (Fluticasone Propionate) 50 Mcg/Actuation [place].susp, 0 SPRAY NS DAILY Prescribed by: LULU WAGNER on 12/10/21 0559 Furosemide (Furosemide) 20 Mg Tablet, 20 MG PO PRN PRN for EDEMA, (Reported) Entered as Reported by: ARTEMIO HOOPER on 06/25/22726 Levothyroxine Sodium (Levothyroxine Sodium) 50 Mcg Tablet, 50 MCG PO DAILY, (Reported) Entered as Reported by: ISABELLA CARDOZO on 02/20/21 1335 Liraglutide (Victoza 3-Logan) 0.6 Mg/0.1 Ml (18 Mg/3 Ml) Pen.injctr, 1.8 MG SQ DAILY, (Reported) Entered as Reported by: ARTEMIO HOOPER on 06/25/22726 Magnesium Oxide (Magnesium Oxide) 400 Mg Tablet, 400 MG PO DAILY, (Reported) Entered as Reported by: ARTEMIO HOOPER on 06/25/22726 Metoprolol Succinate (Metoprolol Succinate) 100 Mg Tab.er.24h, 100 MG PO DAILY, (Reported) Entered as Reported by: ARTEMIO HOOPER on 06/25/22726 Multivitamin (Multivitamin) 1 Each Tablet, 1 EACH PO DAILY, (Reported) Entered as Reported by: ARTEMIO HOOPER on 06/25/22726 Nitroglycerin (Nitroglycerin) 0.4 Mg Tab.subl, 0.4 MG SL UD PRN for CHEST PAIN, (Reported) Entered as Reported by: ISABELLA CARDOZO on 06/27/20 0954 Ranolazine (Ranolazine ER) 1,000 Mg Tab.er.12h, 1,000 MG PO BID, (Reported) Entered as Reported by: ISABELLA CARDOZO on 12/03/21 1229 Rosuvastatin Calcium (Rosuvastatin Calcium) 40 Mg Tablet, 40 MG PO HS, (Reported) Entered as Reported by: ISABELLA CARDOZO on 12/03/21 1229 Sennosides/Docusate Sodium (Senna-S Tablet) 8.6 Mg-50 Mg Tablet, 1 EACH PO PRN PRN for CONSTIPATION, (Reported) Entered as Reported by: ARTEMIO HOOPER on 06/25/22726 Simethicone (Gas Relief) 125 Mg Capsule, 125 MG PO PRN PRN for GAS, (Reported) Entered as Reported by: ARTEMIO HOOPER on 06/25/22726 Tacrolimus (Tacrolimus) 0.1 % Oint..gm., 30 GM TP BID PRN for PRN, (Reported) Entered as Reported by: ARTEMIO HOOPER on 06/25/22 0727 Trazodone HCl (Trazodone HCl) 50 Mg Tablet, 25-50 MG PO HS, (Reported) Entered as Reported by: CT GATICA on 12/01/21 1719 Exam Vital Signs Vital Signs Date Time Temp Pulse Resp B/P (MAP) Pulse Ox O2 Delivery O2 Flow Rate FiO2 09/21/22 16:02 36.3 69 16 130/67 95 Room Air Physical Exam Constitutional: No respiratory distress. Chest: Clear to auscultation bilaterally. CVS: Regular rate and rhythm. No murmur. Neurological: Nonfocal. No pedal edema Labs Laboratory Tests Test 09/21/22 14:00 09/21/22 15:56 Range/Units White Blood Count 7.3 4.3-11.0 10^3/uL Red Blood Count 4.73 3.80-5.11 10^6/uL Hemoglobin 14.9 11.5-16.0 g/dL Hematocrit 43 35-52 % Mean Corpuscular Volume 91 80-99 fL Mean Corpuscular Hemoglobin 32 25-34 pg Mean Corpuscular Hemoglobin Concent 35 32-36 g/dL Red Cell Distribution Width 11.9 10.0-14.5 % Platelet Count 271 130-400 10^3/uL Mean Platelet Volume 8.9 L 9.0-12.2 fL Immature Granulocyte % (Auto) 0 % Neutrophils (%) (Auto) 59 42-75 % Lymphocytes (%) (Auto) 27 12-44 % Monocytes (%) (Auto) 12 0-12 % Eosinophils (%) (Auto) 2 0-10 % Basophils (%) (Auto) 0 0-10 % Neutrophils # (Auto) 4.3 1.8-7.8 10^3/uL Lymphocytes # (Auto) 2.0 1.0-4.0 10^3/uL Monocytes # (Auto) 0.9 0.0-1.0 10^3/uL Eosinophils # (Auto) 0.1 0.0-0.3 10^3/uL Basophils # (Auto) 0.0 0.0-0.1 10^3/uL Immature Granulocyte # (Auto) 0.0 0.0-0.1 10^3/uL Prothrombin Time 13.1 12.2-14.7 SEC INR Comment 1.0 0.8-1.4 Activated Partial Thromboplast Time 30 24-35 SEC Sodium Level 140 135-145 MMOL/L Potassium Level 4.3 3.6-5.0 MMOL/L Chloride Level 108 H 98-107 MMOL/L Carbon Dioxide Level 22 21-32 MMOL/L Anion Gap 10 5-14 MMOL/L Blood Urea Nitrogen 9 7-18 MG/DL Creatinine 0.81 0.60-1.30 MG/DL Estimat Glomerular Filtration Rate 84 BUN/Creatinine Ratio 11 Glucose Level 117 H 70-105 MG/DL Glucometer 118 H 70-110 MG/DL Calcium Level 9.1 8.5-10.1 MG/DL Corrected Calcium 9.0 8.5-10.1 MG/DL Total Bilirubin 0.5 0.1-1.0 MG/DL Aspartate Amino Transf (AST/SGOT) 27 5-34 U/L Alanine Aminotransferase (ALT/SGPT) 29 0-55 U/L Alkaline Phosphatase 67 40-136 U/L Troponin I 0.049 H 0.047 H <0.028 NG/ML Total Protein 6.5 6.4-8.2 GM/DL Albumin 4.1 3.2-4.5 GM/DL ECG Impression ECG Comment First EKG showed sinus rhythm with left bundle branch block. Repeat EKG shows sinus rhythm with no bundle branch block. A/P-Cardiology Assessment/Admission Diagnosis Chest pressure, Transient left bundle branch block. Borderline troponin. History of CAD, History of PCI, History of CVA, Plan Chest pressure, transient left bundle branch block, borderline troponin. Recent coronary angiography done in June [address] Rowland showed patent stent. Serial troponin showed borderline troponin with no significant increasing trend. We will do another troponin tomorrow morning. EKG showed left bundle branch block however repeat EKG in 1 hour showed narrow QRS. When I saw the patient no further chest discomfort. Patient is compliant with aspirin and Plavix. Will likely require nuclear stress test on Friday. Elissa MARIANO MD Sep 21, 2022 16:16
[2022-09-21 16:23] VITALS: BP 142/66
[2022-09-21] MEDS: ENOXAPARIN 40 MG/0.4 ML (LOVENOX) SYR SC SCH (17:57)
[2022-09-21] MEDS: DOCUSATE SODIUM 100 MG (COLACE) CAP PO SCH (20:32)
[2022-09-21] MEDS: SENNOSIDES 8.6 MG (SENOKOT) TAB PO SCH (20:32)
[2022-09-21 23:33] VITALS: BP 104/57
[2022-09-22 03:32] VITALS: BP 105/64
[2022-09-22 06:13] LABS: BASOPHILS % (AUTO) 0 % (0-10); EOSINOPHILS # (AUTO) 0.2 10^3/uL (0.0-0.3); EOSINOPHILS % (AUTO) 3 % (0-10); HEMATOCRIT 40 % (35-52); LYMPHOCYTES # (AUTO) 2.1 10^3/uL (1.0-4.0); LYMPHOCYTES % (AUTO) 31 % (12-44); MEAN CORPUSCULAR HEMOGLOBIN 32 pg (25-34); MEAN CORPUSCULAR HGB CONC 35 g/dL (32-36); MEAN CORPUSCULAR VOLUME 92 fL (80-99); MONOCYTES # (AUTO) 0.7 10^3/uL (0.0-1.0); MONOCYTES % (AUTO) 10 % (0-12); NEUTROPHILS # (AUTO) 3.8 10^3/uL (1.8-7.8); NEUTROPHILS % (AUTO) 56 % (42-75); PLATELET COUNT 214 10^3/uL (130-400); WHITE BLOOD COUNT 6.8 10^3/uL (4.3-11.0)
[2022-09-22 06:27] LABS: POTASSIUM 4.1 MMOL/L (3.6-5.0)
[2022-09-22 06:28] LABS: ALBUMIN 3.8 GM/DL (3.2-4.5)
[2022-09-22 06:29] LABS: CALCIUM 8.8 MG/DL (8.5-10.1)
[2022-09-22 06:32] LABS: BILIRUBIN,TOTAL 0.5 MG/DL (0.1-1.0)
[2022-09-22 06:34] LABS: CREATININE SERUM 0.8 MG/DL (0.60-1.30)
[2022-09-22 07:37] VITALS: BP 114/59
--- NOTE | 2022-09-22 07:41 | Short Stay Summary-Hospitalist ---
History of Present Illness Date Seen 09/22/22 Attending Physician Charles Whitaker DO PCP Admitting Physician: Wandy Samaniego DO Attending Physician: Wandy Samaniego DO Referring Physician Date of Admission Sep 21, 2022 at 16:12 Home Medications & Allergies Home Medications Reviewed patient Home Medication Reconciliation performed by pharmacy medication reconciliations mechatronics technician and/or nursing. Patients Allergies have been reviewed. Allergies Allergies Coded Allergies nitrofurantoin (Verified Allergy, Severe, 03/02/20) shellfish derived (Verified Allergy, Severe, 03/02/20) atorvastatin (Verified Allergy, Intermediate, 03/02/20) pt states it makes her hurt all over/extreme pain Penicillins (Unverified Allergy, Mild, 06/09/08) Proton Pump Inhibitors (Verified Allergy, Unknown, ANGINA, 02/20/21) gluten (Verified Allergy, Unknown, 12/05/21) codeine (Verified Adverse Reaction, Mild, 12/03/21) Night terrors, psych response Past Oeajzbi-Qdggkl-Cqdbba Hx Patient Social History Tobacco Use?: No Substance use?: No Alcohol Use?: No Pt feels they are or have been: No Immunizations Up To Date First/Initial COVID19 Vaccinat: 2020 Second COVID19 Vaccination Tu: 2020 Tetanus Booster (TDap): Unknown Hepatitis A: Yes Hepatitis B: Yes Seasonal Allergies Seasonal Allergies: Yes Current Status Advance Directives: Yes Advance Directive Location: Home Communicates: Verbally Primary Language: Russian Preferred Spoken Language: Russian Is interpretation needed?: No Sensory deficits: Hearing impairment Implanted or Applied Medical D: Orthopedic hardware, Stents Past Medical History Surgeries: Cardiac, Coronary Stent, Gallbladder, Orthopedic Asthma, Sleep Apnea Currently Using CPAP: Yes Atrial Fibrillation, Chronic Edema/Swelling, Coronary Artery Disease, Heart Attack, High Cholesterol, Hypertension, Rheumatic Fever 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, 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: Menopausal Gall Bladder Disease Rheumatoid Arthritis Hypothyroidsim Anxiety, Depression Psoriasis Blood Disorders: No CAD Family Medical History Alcoholism G8 BROTHER, Onset:15's - 20 Arthritis 19 MOTHER, Onset:Adolescence G8 BROTHER, Onset:Adolescence G8 SISTER, Onset:25's - 30 Asthma G8 BROTHER Cataracts 19 FATHER, Onset:60 years & older Deafness or hearing loss 19 FATHER Dementia 19 FATHER Diabetes mellitus 19 MOTHER G8 BROTHER Hypertension 19 FATHER G8 BROTHER Myocardial infarction 19 FATHER, Onset:60 years & older G8 BROTHER, Onset:40's - 50 Psychosocial problem G8 BROTHER, Onset:25's - 30 Severe allergy 19 FATHER, Onset: 19 MOTHER, Onset:Childhood PAST SURGICAL HISTORY: -CERVICAL SPINE SURGERY -LEFT ELBOW ULNAR NERVE SURGERY -CHOLECYSTECTOMY -CARDIAC CATHS-- -03/02/[address] NINO: CONCLUSIONS: 1. Coronary artery disease primarily consisting of 95% ostial stenosis of a first diagonal of the left anterior descending to which successful balloon angioplasty was carried out with reduced the stenosis to less than 30%. Elsewhere, the patient exhibits mild to moderate diffuse coronary plaques. 2. Normal global left ventricular systolic function with an ejection fraction of approximately 60%. 3. Elevated left ventricular end-diastolic pressure. -HAD STENT X 1 PLACED 06/10/20 AT [place]. -LAST CARDIAC CATH DONE HERE 06/27/[address] NINO: CONCLUSIONS: 1. Mild coronary artery disease. 2. Patent stent in the mid left anterior descending artery. 3. Normal global left ventricular systolic function with ejection fraction of 55% to 60%. 4. Normal left ventricular end-diastolic pressure. Physical Exam Physical Exam Vital Signs Vital Signs - First Documented 09/21/22 09/21/22 09/21/22 13:53 16:02 21:19 Temp 36.3 Pulse 78 Resp 16 B/P (MAP) 130/67 Pulse Ox 98 O2 Delivery Room Air FiO2 21 Capillary Refill : Less Than 3 Seconds Height, Weight, BMI Height: '" Weight: lbs. oz. kg; 39.21 BMI Method:Estimated General Appearance: WD/WN, Moderate Distress, Obese, Other (agitated; tearful; tremoring) Eyes: Bilateral Eye Normal Inspection, Bilateral Eye PERRL, Bilateral Eye EOMI HEENT: PERRL/EOMI Neck: Normal Inspection Respiratory: Lungs Clear, Normal Breath Sounds, No Accessory Muscle Use, No Respiratory Distress Cardiovascular: Regular Rate, Rhythm, Normal Peripheral Pulses Gastrointestinal: Normal Bowel Sounds, Non Tender, Soft Extremity: Normal Capillary Refill, Normal Inspection, Normal Range of Motion, No Pedal Edema Neurologic/Psychiatric: Alert, Oriented x3, Other (tearful anxious; global tremors - appears agitated. noted to have a "run" of what appeared to be involuntary left sided lower facial spasms) Skin: Normal Color, Warm/Dry Results Results/Procedures Labs Laboratory Tests 09/21/22 14:00 09/22/22 06:04 Patient resulted labs reviewed. WANDY SAMANIEGO DO Sep 22, 2022 07:41
[2022-09-22] MEDS: DOCUSATE SODIUM 100 MG (COLACE) CAP PO SCH ×2 (07:49→20:58)
[2022-09-22] MEDS: SENNOSIDES 8.6 MG (SENOKOT) TAB PO SCH ×2 (07:49→20:58)
--- NOTE | 2022-09-22 07:49 | History & Physical-Hospitalist ---
ANTELMO RENEE MD 09/22/22 0749: History of Present Illness HPI/Chief Complaint Pt with chest tenderness and pressure 09/21/22. Patient is a 57yo female who presents by EMS with a complaint of tremoring all over, "my body isn't working", photophobia, headache, chest pressure. She states she woke up at 9am with all of those symptoms except the chest pressure. The chest pressure started in the ambulance on the way to the hospital - she described it as feeling "like my cat sitting on my chest". No nausea. She was SOB (but also very anxious and tearful). Increased stress this week as she found out her sister who lived in [place] on Friday. She has a history of prior stent to the LAD and stroke a year ago (with right sided deficits). S he did do ARU and progressed enough to be able to live at home alone. She states she is compliant with her daily medications including daily baby aspirin and plavix. Is not and has never been a smoker. Denies any recent illnesses. Source: patient Date Seen 09/22/22 Attending Physician Charles Whitaker DO PCP Admitting Physician: Wandy Wagner DO Attending Physician: Wandy Wagner DO Referring Physician Date of Admission Sep 21, 2022 at 16:12 Home Medications & Allergies Home Medications Reviewed patient Home Medication Reconciliation performed by pharmacy medication reconciliations paint laboratory technician and/or nursing. Patients Allergies have been reviewed. Allergies Allergies Coded Allergies nitrofurantoin (Verified Allergy, Severe, 03/02/20) shellfish derived (Verified Allergy, Severe, 03/02/20) atorvastatin (Verified Allergy, Intermediate, 03/02/20) pt states it makes her hurt all over/extreme pain Penicillins (Unverified Allergy, Mild, 06/09/08) Proton Pump Inhibitors (Verified Allergy, Unknown, ANGINA, 02/20/21) gluten (Verified Allergy, Unknown, 12/05/21) codeine (Verified Adverse Reaction, Mild, 12/03/21) Night terrors, psych response Past Ytwpxov-Yrgswm-Xkriou Hx Patient Social History Tobacco Use?: No Substance use?: No Alcohol Use?: No Pt feels they are or have been: No Immunizations Up To Date First/Initial COVID19 Vaccinat: 2020 Second COVID19 Vaccination Tu: 2020 Tetanus Booster (TDap): Unknown Hepatitis A: Yes Hepatitis B: Yes Seasonal Allergies Seasonal Allergies: Yes Current Status Advance Directives: Yes Advance Directive Location: Home Communicates: Verbally Primary Language: Hungarian Preferred Spoken Language: Hungarian Is interpretation needed?: No Sensory deficits: Hearing impairment Implanted or Applied Medical D: Orthopedic hardware, Stents Past Medical History Surgeries: Cardiac, Coronary Stent, Gallbladder, Orthopedic Asthma, Sleep Apnea Currently Using CPAP: Yes Atrial Fibrillation, Chronic Edema/Swelling, Coronary Artery Disease, Heart Attack, High Cholesterol, Hypertension, Rheumatic Fever 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, 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: 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 Gall Bladder Disease Rheumatoid Arthritis Hypothyroidsim Anxiety, Depression Psoriasis Blood Disorders: No CAD Family Medical History Alcoholism G8 BROTHER, Onset:15's - 20 Arthritis 19 MOTHER, Onset:Adolescence G8 BROTHER, Onset:Adolescence G8 SISTER, Onset:25's - 30 Asthma G8 BROTHER Cataracts 19 FATHER, Onset:60 years & older Deafness or hearing loss 19 FATHER Dementia 19 FATHER Diabetes mellitus 19 MOTHER G8 BROTHER Hypertension 19 FATHER G8 BROTHER Myocardial infarction 19 FATHER, Onset:60 years & older G8 BROTHER, Onset:40's - 50 Psychosocial problem G8 BROTHER, Onset:25's - 30 Severe allergy 19 FATHER, Onset:[place] 19 MOTHER, Onset:Childhood PAST SURGICAL HISTORY: -CERVICAL SPINE SURGERY -LEFT ELBOW ULNAR NERVE SURGERY -CHOLECYSTECTOMY -CARDIAC CATHS-- -03/02/[address] NINO: CONCLUSIONS: 1. Coronary artery disease primarily consisting of 95% ostial stenosis of a first diagonal of the left anterior descending to which successful balloon angioplasty was carried out with reduced the stenosis to less than 30%. Elsewhere, the patient exhibits mild to moderate diffuse coronary plaques. 2. Normal global left ventricular systolic function with an ejection fraction of approximately 60%. 3. Elevated left ventricular end-diastolic pressure. -HAD STENT X 1 PLACED 06/10/20 AT [place]. -LAST CARDIAC CATH DONE HERE 06/27/[address] NINO: CONCLUSIONS: 1. Mild coronary artery disease. 2. Patent stent in the mid left anterior descending artery. 3. Normal global left ventricular systolic function with ejection fraction of 55% to 60%. 4. Normal left ventricular end-diastolic pressure. Physical Exam Physical Exam Vital Signs Vital Signs - First Documented 09/21/22 09/21/22 09/21/22 13:53 16:02 21:19 Temp 36.3 Pulse 78 Resp 16 B/P (MAP) 130/67 Pulse Ox 98 O2 Delivery Room Air FiO2 21 Capillary Refill : Less Than 3 Seconds Height, Weight, BMI Height: '" Weight: lbs. oz. kg; 39.21 BMI Method:Estimated Results Results/Procedures Labs Laboratory Tests 09/21/22 14:00 09/22/22 06:04 Patient resulted labs reviewed. Assessment/Plan Admission Diagnosis Admission Status: Inpatient Order (span 2 midnights) Diagnosis/Problems Diagnosis/Problems (1) History of CVA (cerebrovascular accident) Status: Chronic Assessment & Plan: - Occurred 2021 - R-sided deficits. PLAN: - head CT WO, no acute intracranial hemorrhage. (2) CAD (coronary artery disease) Status: Acute Assessment & Plan: CAD with previous PCI to LAD; coronary angiogram June 2013 showed patent stent. PLAN: - See cardiology recommendations (3) HTN (hypertension) Status: Chronic (4) Chest pain Status: Acute Assessment & Plan: - PT complaining of chest pressure, tremors, photophobia on presentation to ED PLAN: ACS r/o work-up - EKG, LBBB - Troponin 0.049--> - CXR - CMP - CBC, coag WNL (5) HLD (hyperlipidemia) Status: Chronic WAGNERWANDY BARRETO 09/22/22 1125: History of Present Illness Source: patient Exam Limitations: no limitations Time Seen by a Provider: 11:00 Past Ejqbnek-Nokntu-Rekqsc Hx Family Medical History Alcoholism G8 BROTHER, Onset:15's - 20 Arthritis 19 MOTHER, Onset:Adolescence G8 BROTHER, Onset:Adolescence G8 SISTER, Onset:25's - 30 Asthma G8 BROTHER Cataracts 19 FATHER, Onset:60 years & older Deafness or hearing loss 19 FATHER Dementia 19 FATHER Diabetes mellitus 19 MOTHER G8 BROTHER Hypertension 19 FATHER G8 BROTHER Myocardial infarction 19 FATHER, Onset:60 years & older G8 BROTHER, Onset:40's - 50 Psychosocial problem G8 BROTHER, Onset:25's - 30 Severe allergy 19 FATHER, Onset: 19 MOTHER, Onset:Childhood Review of Systems Constitutional: see HPI Physical Exam Physical Exam General Appearance: No Apparent Distress, Chronically ill Respiratory: Lungs Clear Cardiovascular: Regular Rate, Rhythm Assessment/Plan Admission Diagnosis I performed a history and physical examination of the patient and discussed management. I reviewed the resident's note and agree with the documented findings and plan of care. Admission Status: Observation ANTELMO RENEE MD Sep 22, 2022 07:49 WANDY WAGNER DO Sep 22, 2022 11:25
[2022-09-22] MEDS: CLOPIDOGREL 75 MG (PLAVIX) TABLET PO SCH (11:00)
[2022-09-22] MEDS: ASPIRIN enteric coated 81MG TABLET PO SCH (11:00)
[2022-09-22] MEDS ORDERED: LORA-1389 PO (11:34)
[2022-09-22] MEDS ORDERED: METO50TA7 PO (11:37)
[2022-09-22 11:40] VITALS: BP 99/59
[2022-09-22] MEDS ORDERED: NF-MEXI150 PO (11:40)
[2022-09-22] MEDS ORDERED: TACROLIMUS 30 GM TP PRN (12:00)
[2022-09-22] MEDS ORDERED: NITROGLYCERIN 0.4 MG SL TABS BTL 25'S SL PRN (12:00)
[2022-09-22] MEDS ORDERED: SENNA W/DOCUSATE (SENOKOT S) TABLET PO PRN (12:00)
[2022-09-22] MEDS ORDERED: FUROSEMIDE 20 MG (LASIX) TAB PO PRN (12:00)
[2022-09-22] MEDS: diphenhydrAMINE 25 MG TAB (BENADRYL) PO SCH ×2 (12:00→20:57)
[2022-09-22] MEDS: MEXILETINE 150 MG CAPSULE PO SCH ×2 (13:00→20:59)
[2022-09-22 15:51] VITALS: BP 93/40
--- NOTE | 2022-09-22 16:39 | Cardiology Progress Note ---
Cardiology SOAP Progress Note Subjective: No further symptoms. Objective: I&O/Vital Signs 09/22/22 09/22/22 09/22/22 09/22/22 07:00 07:37 08:00 11:40 Temp 36.0 36.1 Pulse 57 62 71 Resp 15 20 B/P (MAP) 114/59 (77) 99/59 (72) Pulse Ox 99 96 97 O2 Delivery Room Air Room Air Room Air 09/22/22 09/22/22 12:36 15:51 Temp 36.2 Pulse 68 70 Resp 19 B/P (MAP) 93/40 (57) Pulse Ox 99 O2 Delivery Room Air 09/22/22 00:00 Intake Total 240 ml Balance 240 ml Constitutional: AAO x 3 Respiratory: chest is bilaterally symmetric, lungs clear to auscultation Cardiovascular: regular rate-rhythm; No diastolic murmur, No systolic murmur Gastrointestional: soft Neurologic/Psychiatric: alert, normal mood/affect, oriented x 3 Results/Procedures: Labs Laboratory Tests 09/22/22 06:04: White Blood Count 6.8, Red Blood Count 4.38, Hemoglobin 14.0, Hematocrit 40, Mean Corpuscular Volume 92, Mean Corpuscular Hemoglobin 32, Mean Corpuscular Hemoglobin Concent 35, Red Cell Distribution Width 12.2, Platelet Count 214, Mean Platelet Volume 9.0, Immature Granulocyte % (Auto) 0, Neutrophils (%) (Auto) 56, Lymphocytes (%) (Auto) 31, Monocytes (%) (Auto) 10, Eosinophils (%) (Auto) 3, Basophils (%) (Auto) 0, Neutrophils # (Auto) 3.8, Lymphocytes # (Auto) 2.1, Monocytes # (Auto) 0.7, Eosinophils # (Auto) 0.2, Basophils # (Auto) 0.0, Immature Granulocyte # (Auto) 0.0, Sodium Level 137, Potassium Level 4.1, Chloride Level 105, Carbon Dioxide Level 23, Anion Gap 9, Blood Urea Nitrogen 12, Creatinine 0.80, Estimat Glomerular Filtration Rate 85, BUN/Creatinine Ratio 15, Glucose Level 106H, Calcium Level 8.8, Corrected Calcium 9.0, Total Bilirubin 0.5, Aspartate Amino Transf (AST/SGOT) 23, Alanine Aminotransferase (ALT/SGPT) 27, Alkaline Phosphatase 56, Troponin I 0.060H, Total Protein 6.0L, Albumin 3.8, Triglycerides Level 162H, Cholesterol Level 129, LDL Cholesterol Direct 64, VLDL Cholesterol 32, HDL Cholesterol 45 A/P: Assessment/Dx: Chest pressure, Transient left bundle branch block. Borderline troponin. History of CAD, History of PCI, History of CVA, Plan: Chest pressure, transient left bundle branch block, borderline troponin. Recent coronary angiography done in June [address] Rowland showed patent stent. Serial troponin showed borderline troponin with no significant increasing trend. EKG showed left bundle branch block however repeat EKG in 1 hour showed narrow QRS. When I saw the patient no further chest discomfort. Patient is compliant with aspirin and Plavix. Will likely require nuclear stress test on Friday with Dr. Oden. N.p.o. after midnight. No caffeine. Elissa MARIANO MD Sep 22, 2022 16:39
[2022-09-22] MEDS: ENOXAPARIN 40 MG/0.4 ML (LOVENOX) SYR SC SCH (17:26)
[2022-09-22 20:44] VITALS: BP 101/54
[2022-09-22] MEDS: RANOLAZINE ER 500 MG TAB (RANEXA) PO SCH (20:57)
[2022-09-22] MEDS: LORATADINE (CLARITIN) 10 MG TAB PO SCH (20:58)
[2022-09-22] MEDS: ROSUVASTATIN 20 MG (CRESTOR) TABLET PO SCH (20:58)
[2022-09-22] MEDS: eZETimibe 10 MG (ZETIA) TABLET PO SCH (20:58)
[2022-09-22] MEDS: traZODone 50 MG (DESYREL) TAB PO SCH (20:58)
[2022-09-22 22:00] VITALS: BP 92/62
[2022-09-23] VITALS (22 sets, daily range): BP systolic 68–147; BP diastolic 41–76
[2022-09-23 05:03] LABS: BASOPHILS % (AUTO) 0 % (0-10); HEMOGLOBIN 13.7 g/dL (11.5-16.0)
[2022-09-23 05:05] LABS: EOSINOPHILS # (AUTO) 0.2 10^3/uL (0.0-0.3); EOSINOPHILS % (AUTO) 2 % (0-10); HEMATOCRIT 40 % (35-52); LYMPHOCYTES # (AUTO) 1.8 10^3/uL (1.0-4.0); LYMPHOCYTES % (AUTO) 24 % (12-44); MEAN CORPUSCULAR HEMOGLOBIN 32 pg (25-34); MEAN CORPUSCULAR HGB CONC 35 g/dL (32-36); MEAN CORPUSCULAR VOLUME 92 fL (80-99); MEAN PLATELET VOLUME 9.3 fL (9.0-12.2); MONOCYTES # (AUTO) 0.6 10^3/uL (0.0-1.0); MONOCYTES % (AUTO) 9 % (0-12); NEUTROPHILS # (AUTO) 4.6 10^3/uL (1.8-7.8); NEUTROPHILS % (AUTO) 64 % (42-75); PLATELET COUNT 208 10^3/uL (130-400); WHITE BLOOD COUNT 7.2 10^3/uL (4.3-11.0)
[2022-09-23 05:35] LABS: ALBUMIN 3.7 GM/DL (3.2-4.5); BILIRUBIN,TOTAL 0.4 MG/DL (0.1-1.0); CALCIUM 8.6 MG/DL (8.5-10.1); CREATININE SERUM 0.8 MG/DL (0.60-1.30); POTASSIUM 3.9 MMOL/L (3.6-5.0)
[2022-09-23] MEDS: MULTIVIT W/MINERALS TAB (THERAGRAN M) PO SCH ×2 (06:35→10:14)
[2022-09-23] MEDS: LEVOTHYROXINE 50 MCG (LEVOTHROID) TAB PO SCH ×2 (06:35→10:14)
[2022-09-23] MEDS ORDERED: CATHETER FLUSH 10 ML SYR IVP PRN (08:00)
[2022-09-23] MEDS ORDERED: REGADENOSON 0.4 MG/5 ML SYR (LEXISCAN) IV ONE ×2 (08:47→09:45)
[2022-09-23] MEDS ORDERED: NON-FORMULARY MEDICATION 1 EA EA (Liraglutide (Victoza 3-Pak) 1.8 MG) SQ SCH (09:00)
[2022-09-23] MEDS: FLUTICASONE NASAL SPRAY (FLONASE) 16 GM BTL NS SCH (09:00)
[2022-09-23] MEDS: MAGNESIUM OXIDE (MAG-OX)400 MG TAB PO SCH (10:13)
[2022-09-23] MEDS: meTOproloL SUCCINATE 50 MG (TOPROL XL) TAB PO SCH (10:14)
[2022-09-23] MEDS: diphenhydrAMINE 25 MG TAB (BENADRYL) PO SCH ×3 (10:14→20:04)
[2022-09-23] MEDS: ASPIRIN enteric coated 81MG TABLET PO SCH (10:14)
[2022-09-23] MEDS: RANOLAZINE ER 500 MG TAB (RANEXA) PO SCH ×2 (10:14→20:05)
[2022-09-23] MEDS: MEXILETINE 150 MG CAPSULE PO SCH ×3 (10:14→20:04)
[2022-09-23] MEDS: LORATADINE (CLARITIN) 10 MG TAB PO SCH ×2 (10:15→20:05)
[2022-09-23] MEDS: CLOPIDOGREL 75 MG (PLAVIX) TABLET PO SCH (10:15)
[2022-09-23] MEDS: DOCUSATE SODIUM 100 MG (COLACE) CAP PO SCH ×2 (10:26→20:05)
[2022-09-23] MEDS: SENNOSIDES 8.6 MG (SENOKOT) TAB PO SCH ×2 (10:26→20:04)
--- NOTE | 2022-09-23 10:48 | Discharge Summary ---
Discharge Summary Hospital Course Problems/Dx: (1) History of CVA (cerebrovascular accident) Status: Chronic (2) CAD (coronary artery disease) Status: Acute (3) HTN (hypertension) Status: Chronic (4) Chest pain Status: Acute Qualifiers: Qualified Codes: R07.9 - Chest pain, unspecified (5) HLD (hyperlipidemia) Status: Chronic Hospital Course Date of Admission: Sep 21, 2022 at 16:12 Admission Diagnosis : Family Physician/Provider: Charles Whitaker DO Date of Discharge: 09/23/22 Discharge Diagnosis: [ ] Hospital Course: [ ] Labs and Pending Lab Test: Laboratory Tests 09/23/22 04:43: White Blood Count 7.2, Red Blood Count 4.30, Hemoglobin 13.7, Hematocrit 40, Nguyen n Corpuscular Volume 92, Mean Corpuscular Hemoglobin 32, Mean Corpuscular Hemoglobin Concent 35, Red Cell Distribution Width 12.2, Platelet Count 208, Mean Platelet Volume 9.3, Immature Granulocyte % (Auto) 0, Neutrophils (%) (Auto) 64, Lymphocytes (%) (Auto) 24, Monocytes (%) (Auto) 9, Eosinophils (%) (Auto) 2, Basophils (%) (Auto) 0, Neutrophils # (Auto) 4.6, Lymphocytes # (Auto) 1.8, Monocytes # (Auto) 0.6, Eosinophils # (Auto) 0.2, Basophils # (Auto) 0.0, Immature Granulocyte # (Auto) 0.0, Percent Immature Platelet Fraction 1.5, Sodium Level 139, Potassium Level 3.9, Chloride Level 108H, Carbon Dioxide Level 22, Anion Gap 9, Blood Urea Nitrogen 15, Creatinine 0.80, Estimat Glomerular Filtration Rate 85, BUN/Creatinine Ratio 19, Glucose Level 110H, Calcium Level 8.6, Corrected Calcium 8.8, Total Bilirubin 0.4, Aspartate Amino Transf (AST/SGOT) 35H, Alanine Aminotransferase (ALT/SGPT) 45, Alkaline Phosphatase 56, Total Protein 6.0L, Albumin 3.7 Home Meds Active Fluticasone Propionate 50 Mcg/Actuation [place].susp 0 [place] NS DAILY 2 puffs daily Reported Mexiletine HCl 150 Mg Cap 150 Mg PO TID Metoprolol Succinate 50 Mg Tab.er.24h 50 Mg PO DAILY Loratadine 10 Mg Tab.rapdis 10 Mg PO BID Tacrolimus 0.1 % Oint..gm. 30 Gm TP BID PRN Senna-S Tablet (Sennosides/Docusate Sodium) 8.6 Mg-50 Mg Tablet 1 Each PO PRN PRN Gas Relief (Simethicone) 125 Mg Capsule 125 Mg PO PRN PRN Multivitamin 1 Each Tablet 1 Each PO DAILY Victoza 3-Logan (Liraglutide) 0.6 Mg/0.1 Ml (18 Mg/3 Ml) Pen.injctr 1.8 Mg SQ DAILY Furosemide 20 Mg Tablet 20 Mg PO PRN PRN Allergy Relief (Diphenhydramine HCl) 25 Mg Tablet 25 Mg PO AM AND NOON Magnesium Oxide 400 Mg Tablet 400 Mg PO DAILY Benadryl Allergy (Diphenhydramine HCl) 25 Mg Tablet 75 Mg PO HS TAKES 3 (25MG) TABS Rosuvastatin Calcium 40 Mg Tablet 40 Mg PO HS Ranolazine ER (Ranolazine) 1,000 Mg Tab.er.12h 1,000 Mg PO BID Tylenol (Acetaminophen) 325 Mg Capsule 325-650 Mg PO QID PRN Trazodone HCl 50 Mg Tablet 25-50 Mg PO HS TAKES 1/2 TO 1 OF A 50MG TAB Citalopram HBr (Citalopram Hydrobromide) 20 Mg Tablet 20 Mg PO HS Zetia (Ezetimibe) 10 Mg Tablet 10 Mg PO HS Clopidogrel (Clopidogrel Bisulfate) 75 Mg Tablet 75 Mg PO DAILY Aspirin EC (Aspirin) 81 Mg Tablet.dr 81 Mg PO DAILY Levothyroxine Sodium 50 Mcg Tablet 50 Mcg PO DAILY Nitroglycerin 0.4 Mg Tab.subl 0.4 Mg SL UD PRN Discharge Physical Examination Vital Signs Vital Signs Date Time Temp Pulse Resp B/P (MAP) Pulse Ox O2 Delivery O2 Flow Rate FiO2 09/23/22 10:15 61 16 115/53 (73) 99 Room Air 09/22/22 15:51 36.2 09/21/22 21:19 21 Allergies: Coded Allergies: nitrofurantoin (Verified Allergy, Severe, 03/02/20) shellfish derived (Verified Allergy, Severe, 03/02/20) atorvastatin (Verified Allergy, Intermediate, 03/02/20) pt states it makes her hurt all over/extreme pain Penicillins (Unverified Allergy, Mild, 06/09/08) Proton Pump Inhibitors (Verified Allergy, Unknown, ANGINA, 02/20/21) gluten (Verified Allergy, Unknown, 12/05/21) codeine (Verified Adverse Reaction, Mild, 12/03/21) Night terrors, psych response Discharge Summary Date of Admission Sep 21, 2022 at 16:12 Date of Discharge Discharge Date: Sep 23, 2022 Admission Diagnosis I performed a history and physical examination of the patient and discussed management. I reviewed the resident's note and agree with the documented findings and plan of care. Discharge Diagnosis (1) History of CVA (cerebrovascular accident) Status: Chronic Assessment & Plan: - Occurred 2021 - R-sided deficits. PLAN: - head CT WO, no acute intracranial hemorrhage. (2) CAD (coronary artery disease) Status: Acute Assessment & Plan: CAD with previous PCI to LAD; coronary angiogram June 2013 showed patent stent. PLAN: - See cardiology recommendations (3) HTN (hypertension) Status: Chronic (4) Chest pain Status: Acute Assessment & Plan: - PT complaining of chest pressure, tremors, photophobia on presentation to ED PLAN: ACS r/o work-up - EKG, LBBB - Troponin 0.049--> - CXR - CMP - CBC, coag WNL Qualifiers: Qualified Codes: R07.9 - Chest pain, unspecified (5) HLD (hyperlipidemia) Status: Chronic LULU WAGNER DO Sep 23, 2022 10:48
[2022-09-23] MEDS ORDERED: NS IV 1000 ML 1,000 ML ONE (11:04)
[2022-09-23] MEDS ORDERED: LIDOCAINE 1% INJ 20 ML VIAL ONE (11:04)
[2022-09-23] MEDS ORDERED: HEParin (CATH LAB) 2,000 ML IV ONE (11:04)
[2022-09-23] MEDS ORDERED: diphenhydrAMINE 50 MG/ML INJ (BENADRYL) ONE (11:07)
[2022-09-23] MEDS ORDERED: MIDAZOLAM 5 MG/5 ML (VERSED) VIAL ONE (11:07)
[2022-09-23] MEDS ORDERED: methylPREDNISolone 125 MG (Solu-MEDROL) VIAL ONE (11:07)
[2022-09-23] MEDS ORDERED: fentaNYL INJ 100 MCG/2 ML AMP ONE (11:07)
[2022-09-23] MEDS ORDERED: VERAPAMIL 5 MG/2 ML (CALAN) VIAL IV ONE (11:07)
[2022-09-23] MEDS ORDERED: HEParin 1000 UNIT/ML (10ML VIAL) FOR BOLUS ONE (11:08)
[2022-09-23] MEDS ORDERED: NITRO DRIP 25000 MCG/D5W 0 ML IV ONE (11:08)
--- NOTE | 2022-09-23 11:08 | Progress Note - Hospitalist ---
Subjective HPI/CC On Admission Date Seen by Provider: Sep 23, 2022 Time Seen by Provider: 10:00 Pt with chest tenderness and pressure 09/21/22. Patient is a 57yo female who presents by EMS with a complaint of tremoring all over, "my body isn't working", photophobia, headache, chest pressure. She states she woke up at 9am with all of those symptoms except the chest pressure. The chest pressure started in the ambulance on the way to the hospital - she described it as feeling "like my cat sitting on my chest". No nausea. She was S OB (but also very anxious and tearful). Increased stress this week as she found out her sister who lived in [place] on Friday. She has a history of prior stent to the LAD and stroke a year ago (with right sided deficits). She did do ARU and progressed enough to be able to live at home alone. She states she is compliant with her daily medications including daily baby aspirin and plavix. Is not and has never been a smoker. Denies any recent illnesses. Subjective/Events-last exam Doing well EST was abnl so cath will be performed Objective Exam Vital Signs Vital Signs Date Time Temp Pulse Resp B/P (MAP) Pulse Ox O2 Delivery O2 Flow Rate FiO2 09/23/22 20:01 75 89/58 (68) 93 Room Air 09/23/22 19:34 36.6 09/23/22 16:00 18 09/21/22 21:19 21 Capillary Refill : Less Than 3 Seconds General Appearance: No Apparent Distress, WD/WN, Chronically ill Results/Procedures Lab Laboratory Tests 09/23/22 04:43 Patient resulted labs reviewed. Assessment/Plan Assessment and Plan Assess & Plan/Chief Complaint Assessment: Chest pain with abnl EST performing cath today Plan: Appreciate Cards LULU WAGNER DO Sep 23, 2022 11:07
--- NOTE | 2022-09-23 11:51 | Cardiology Progress Note ---
Subjective Date Seen by Provider: Sep 23, 2022 Time Seen by Provider: 11:46 Subjective/Events-last exam Patient was seen at bedside, she was feeling well. No further episodes of chest pain. Objective-Cardiology Exam Last Set of Vital Signs Vital Signs 09/21/22 09/22/22 09/23/22 21:19 15:51 10:15 Temp 36.2 Pulse 61 Resp 16 B/P (MAP) 115/53 (73) Pulse Ox 99 O2 Delivery Room Air FiO2 21 I&O Intake and Output 09/23/22 00:00 Intake Total 680 ml Balance 680 ml Intake Oral 680 ml # Voids 5 General: Alert, Oriented X3, Cooperative HEENT: Atraumatic, PERRLA Neck: Supple, No JVD, No Thyromegaly Lungs: Clear to Auscultation, Normal Air Movement Heart: Regular Rate, Normal S1, Normal S2, No Murmurs Abdomen: Normal Bowel Sounds, Soft, No Tenderness, No Hepatosplenomegaly, No Masses Extremities: No Clubbing, No Cyanosis, No Edema, Normal Pulses, No Tenderness/Swelling Skin: No Rashes, No Breakdown, No Significant Lesion Neuro: Normal Gait, Normal Speech, Strength at 5/5 X4 Ext, Normal Tone, Sensation Intact Psych/Mental Status: Mental Status NL, Mood NL Results Lab Laboratory Tests 09/23/22 04:43 A/P-Cardiology Admission Diagnosis Chest pain Coronary artery disease Hypertension Hyperlipidemia Assessment/Plan Coronary artery disease, chest pain, mildly elevated troponin, Abnormal stress test with anterior wall ischemia, I am planning to proceed with cardiac catheterization Cardiac catheterization done in 02 February 2020 with 95% ostial LAD stenosis, had balloon angioplasty to the LAD. Right coronary artery was dominant Repeat PCI to the LAD was done in April 2020 Repeat PCI done at [facility] in June 2020 Cardiac catheterization done by Dr. Scott in December 2020 had patent stent in the LAD, 80% stenosis in the mid LAD small vessel not amendable to intervention, medical therapy advised Cardiac catheterization done in January 2021 with moderate diffuse disease, nondominant circumflex artery. Cardiac catheterization done in June [address] Ojeda monitoring patent stent in the proximal LAD with moderate disease diffusely. Due to the abnormal stress test and active chest pain and elevated troponin I am planning to proceed with cardiac catheterization Recurrent palpitation, had frequent PVCs. Has been followed by Dr. Rowland has history of loop monitor implant History of CVA, echo done in December 2021 was normal. Obstructive sleep apnea, followed with Dr. Eddy History of carotid stenosis, followed by Dr. Vora Hypertension, monitor blood pressure Scleroderma, followed by primary care physician Hyperlipidemia, monitor lipids History of celiac disease ELIZABETH CHERRY MD Sep 23, 2022 11:51
--- NOTE | 2022-09-23 11:52 | Cardiac Procedure Note-CS/ASA ---
Pre-Procedure Note Pre-Op Procedure Note Date of Available H&P: Sep 23, 2022 Date H&P Reviewed: Sep 23, 2022 Time H&P Reviewed: 11:51 History & Physical: H&P Reviewed, Patient Examed, No changes noted Pre-Operative Diagnosis: CAD Moderate Sedation PreProcedure Time 11:51 ASA Score 3 Airway Lungs Heart ASA score ASA 1: a normal healthy patient ASA 2: a patient with a mild systemic disease (mid diabetes, controlled hypertension, obesity ASA 3: a patient with a severe systemic disease that limits activity (angina, COPD, prior Myocardial infarction) ASA 4: a patient with an incapacitating disease that is a constant threat to life (CHF, renal failure) ASA 5: a moribund patient not expected to survive 24 hrs. (ruptured aneurysm) ASA 6: a declared brain- patient whose organs are being harvested. For emergent operations, add the letter E after the classification Mallampati Classification Grade 3 Sedation Plan Analgesia, Amnesia, Plan communicated to team members, Discussed options with patient/fam, Discussed risks with patient/fam The patient is an appropriate candidate to undergo the planned procedure, sedation, and anesthesia. The patient immediately re-assessed prior to indication. ELIZABETH CHERRY MD Sep 23, 2022 11:51
--- NOTE | 2022-09-23 11:53 | Cardiology Stress Test Report ---
Stress Test Report Date of Procedure/Referring: Date of Procedure: Sep 23, 2022 PCP Charles Whitaker DO Admitting Physician Admitting Physician: Wandy Samaniego DO Attending Physician: Wandy Samaniego DO Indications: CP Baseline Blood Pressure: Blood Pressure Systolic: 115 Blood Pressure Diastolic: 53 Baseline Vitals Vital Signs Date Time Temp Pulse Resp B/P (MAP) Pulse Ox O2 Delivery O2 Flow Rate FiO2 09/21/22 13:53 36.3 78 16 98 Room Air 09/21/22 21:19 21 Baseline EKG: Baseline EKG: NSR Summary After explaining the procedure to the patient, she signed a consent and then brought to the stress nuclear laboratory. Patient received 0.4 mg Lexiscan for stress test, ECG, heart rate and blood pressure were monitored continuously. Resting and stress dose of radio tracer were injected, imaging was acquired and reviewed in short axis, horizontal long axis and vertical long axis views. TID: 1.03 SSS: 12 SDS: 10 EF: 58 Patient tolerated Lexiscan well Reversible ischemia involving the whole anterior wall and anterior apex Normal left ventricular size, ejection fraction 58% ELIZABETH CHERRY MD Sep 23, 2022 11:53
[2022-09-23] MEDS ORDERED: PATIENT MAY USE OWN MEDS, ALL PO SCH (12:15)
--- NOTE | 2022-09-23 12:20 | Cardiac Cath Report ---
Cardiac Cath Report Physician (s)/Snowmobile Mechanic (s) Physician ELIZABETH CHERRY MD Pre-Procedure Diagnosis Pre-Procedure Diagnosis: CAD Post-Procedure Note Procedure Start Date: Sep 23, 2022 Name of Procedure: Left heart catheterization Findings/Procedure Note PROCEDURE NOTE: 57-year-old lady with history of coronary artery disease, admitted with chest pain, had an abnormal stress test with anterior wall ischemia, cardiac catheterization was advised. After explaining the procedure to the patient, all pros and cons were explained, all questions were answered. The patient signed the consent and then she was placed in the cardiac catheterization laboratory. Groin was prepped in SL fashion local anesthesia was used. Sheath placed in the right femoral artery. Milan' right and left catheter were used to access the coronary system. Ju dkins right prolapsed to the left ventricular cavity, pressure was measured, no left ventriculogram was done. At the end of the procedure the sheath was removed. 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 Dominant right coronary artery with no significant obstructive disease Normal left ventricular end-diastolic pressure DISCUSSION AND RECOMMENDATION: Chest pain is probably due to small vessel disease, I will add long-acting nitroglycerin. Conservative management is recommended Anesthesia Type: Conscious Sedation Estimated blood loss (mL): 15 ml Contrast Amount: 30 ml Total Radiation Dose: 323 mGy Post-Procedure Diagnosis Post-operative diagnosis: Chest pain Coronary artery disease Hypertension Hyperlipidemia ELIZABETH CHERRY MD Sep 23, 2022 12:19
[2022-09-23] MEDS ORDERED: ISOSORBIDE MONONITRATE 30 MG (IMDUR) TAB PO SCH (12:30)
[2022-09-23] MEDS: NS IV 1000 ML 1,000 ML IV SCH ×2 (13:42→22:48)
[2022-09-23] MEDS: ENOXAPARIN 40 MG/0.4 ML (LOVENOX) SYR SC SCH (17:54)
[2022-09-23] MEDS: traZODone 50 MG (DESYREL) TAB PO SCH (20:05)
[2022-09-23] MEDS: eZETimibe 10 MG (ZETIA) TABLET PO SCH (20:05)
[2022-09-23] MEDS: ROSUVASTATIN 20 MG (CRESTOR) TABLET PO SCH (20:05)
[2022-09-24 00:01] VITALS: BP 92/56
[2022-09-24 02:01] VITALS: BP 104/62
[2022-09-24 04:01] VITALS: BP 98/56
[2022-09-24 05:17] LABS: ALBUMIN 3.6 GM/DL (3.2-4.5); BILIRUBIN,TOTAL 0.4 MG/DL (0.1-1.0); CALCIUM 8.5 MG/DL (8.5-10.1); CREATININE SERUM 0.77 MG/DL (0.60-1.30); POTASSIUM 4.1 MMOL/L (3.6-5.0); TOTAL PROTEIN 5.8 GM/DL (6.4-8.2)
[2022-09-24 05:30] LABS: BASOPHILS % (AUTO) 0 % (0-10); EOSINOPHILS % (AUTO) 0 % (0-10); HEMATOCRIT 36 % (35-52); HEMOGLOBIN 12.8 g/dL (11.5-16.0); LYMPHOCYTES # (AUTO) 1.1 10^3/uL (1.0-4.0); LYMPHOCYTES % (AUTO) 10 % (12-44); MEAN CORPUSCULAR HEMOGLOBIN 32 pg (25-34); MEAN CORPUSCULAR HGB CONC 36 g/dL (32-36); MEAN CORPUSCULAR VOLUME 89 fL (80-99); MEAN PLATELET VOLUME 9.1 fL (9.0-12.2); MONOCYTES # (AUTO) 0.4 10^3/uL (0.0-1.0); MONOCYTES % (AUTO) 4 % (0-12); NEUTROPHILS # (AUTO) 9.7 10^3/uL (1.8-7.8); NEUTROPHILS % (AUTO) 86 % (42-75); PLATELET COUNT 227 10^3/uL (130-400); WHITE BLOOD COUNT 11.3 10^3/uL (4.3-11.0)
[2022-09-24 06:01] VITALS: BP 94/64
[2022-09-24] MEDS: LEVOTHYROXINE 50 MCG (LEVOTHROID) TAB PO SCH (06:23)
[2022-09-24 07:59] VITALS: BP 90/60
[2022-09-24] MEDS ORDERED: SIMETHICONE 80 MG (MYLICON) CHEW PO PRN (08:15)
--- NOTE | 2022-09-24 08:25 | Cardiology Progress Note ---
Subjective Date Seen by Provider: Sep 24, 2022 Time Seen by Provider: 08:24 Subjective/Events-last exam Patient was seen at bedside, laying down comfortably, no new complaint. Review of Systems General: No Chills, No Night Sweats, No Fatigue, No Malaise, No Appetite, No Other HEENT: No Head Aches, No Visual Changes, No Eye Pain, No Ear Pain, No Dysphasia, No Sinus Congestion, No Post Nasal Drip, No Sore Throat, No Other Pulmonary: No Dyspnea, No Cough, No Pleuritic Chest Pain, No Other Cardiovascular: No: Chest Pain, Palpitations, Orthopnea, Paroxysmal Noc. Dyspnea, Edema, Lt Headedness, Other Objective-Cardiology Exam Last Set of Vital Signs Vital Signs 09/21/22 09/24/22 21:19 07:59 Temp 36.5 Pulse 61 Resp 12 B/P (MAP) 90/60 (70) Pulse Ox 98 O2 Delivery Room Air FiO2 21 I&O Intake and Output 09/24/22 00:00 Intake Total 590 ml Balance 590 ml Intake Oral 590 ml # Voids 6 # Bowel Movements 3 General: Alert, Oriented X3, Cooperative HEENT: Atraumatic, PERRLA Neck: Supple, No JVD, No Thyromegaly Lungs: Clear to Auscultation, Normal Air Movement Heart: Regular Rate, Normal S1, Normal S2, No Murmurs Abdomen: Normal Bowel Sounds, Soft, No Tenderness, No Hepatosplenomegaly, No Masses Extremities: No Clubbing, No Cyanosis, No Edema, Normal Pulses, No Tenderness/Swelling Skin: No Rashes, No Breakdown, No Significant Lesion Neuro: Normal Gait, Normal Speech, Strength at 5/5 X4 Ext, Normal Tone, Sensation Intact Psych/Mental Status: Mental Status NL, Mood NL Results Lab Laboratory Tests 09/24/22 04:37 09/24/22 05:24 A/P-Cardiology Admission Diagnosis Chest pain Coronary artery disease Hypertension Hyperlipidemia Assessment/Plan Coronary artery disease, chest pain, mildly elevated troponin, Abnormal stress test with anterior wall ischemia, I am planning to proceed with cardiac catheterization Cardiac catheterization done in 02 February 2020 with 95% ostial LAD stenosis, had balloon angioplasty to the LAD. Right coronary artery was dominant Repeat PCI to the LAD was done in April 2020 Repeat PCI done at [facility] in June 2020 Cardiac catheterization done by Dr. Scott in December 2020 had patent stent in the LAD, 80% stenosis in the mid LAD small vessel not amendable to intervention, medical therapy advised Cardiac catheterization done in January 2021 with moderate diffuse disease, nondominant circumflex artery. Cardiac catheterization done in June [address] Ojeda monitoring patent stent in the proximal LAD with moderate disease diffusely. Repeat cardiac catheterization done in August 2022 due to recurrent chest pain and elevated troponin and abnormal stress test, moderate disease, small vessel disease distally. Attempt to reintroduce isosorbide resulted in severe hypotension. Patient is intolerant to isosorbide Tolerating [place] Recurrent palpitation, had frequent PVCs. Has been followed by Dr. Vora has history of loop monitor implant History of CVA, echo done in December 2021 was normal. Obstructive sleep apnea, followed with Dr. Eddy History of carotid stenosis, followed by Dr. Vora Hypertension, monitor blood pressure Scleroderma, followed by primary care physician Hyperlipidemia, monitor lipids History of celiac disease Okay for discharge from cardiology standpoint ELIZABETH CHERRY MD Sep 24, 2022 08:25
[2022-09-24] MEDS: CLOPIDOGREL 75 MG (PLAVIX) TABLET PO SCH (09:11)
[2022-09-24] MEDS: meTOproloL SUCCINATE 50 MG (TOPROL XL) TAB PO SCH (09:11)
[2022-09-24] MEDS: MAGNESIUM OXIDE (MAG-OX)400 MG TAB PO SCH (09:12)
[2022-09-24] MEDS: diphenhydrAMINE 25 MG TAB (BENADRYL) PO SCH ×2 (09:12→13:02)
[2022-09-24] MEDS: MEXILETINE 150 MG CAPSULE PO SCH ×2 (09:12→13:02)
[2022-09-24] MEDS: SENNOSIDES 8.6 MG (SENOKOT) TAB PO SCH (09:12)
[2022-09-24] MEDS: ASPIRIN enteric coated 81MG TABLET PO SCH (09:12)
[2022-09-24] MEDS: RANOLAZINE ER 500 MG TAB (RANEXA) PO SCH (09:12)
[2022-09-24] MEDS: MULTIVIT W/MINERALS TAB (THERAGRAN M) PO SCH (09:12)
[2022-09-24] MEDS: DOCUSATE SODIUM 100 MG (COLACE) CAP PO SCH (09:12)
[2022-09-24] MEDS: LORATADINE (CLARITIN) 10 MG TAB PO SCH (09:12)
[2022-09-24] MEDS: FLUTICASONE NASAL SPRAY (FLONASE) 16 GM BTL NS SCH (09:13)
--- NOTE | 2022-09-24 09:21 | Discharge Summary ---
Discharge Summary Hospital Course Was the Problem List Reviewed?: Yes Problems/Dx: (1) History of CVA (cerebrovascular accident) Status: Chronic (2) CAD (coronary artery disease) Status: Acute (3) HTN (hypertension) Status: Chronic (4) Chest pain Status: Acute Qualifiers: Qualified Codes: R07.9 - Chest pain, unspecified (5) HLD (hyperlipidemia) Status: Chronic Hospital Course Date of Admission: Sep 21, 2022 at 16:12 Admission Diagnosis : Family Physician/Provider: Charles Whitaker DO Date of Discharge: 09/24/22 Discharge Diagnosis: [ ] Hospital Course: Uncomplicated course after she was admitted following chest pain and slightly elevated troponin noted so Cardiology performed EST and even though cath was done in 06/2022 she underwent cath revealing small vessel disease and no intervention performed and she was DC in improved condition. Labs and Pending Lab Test: Laboratory Tests 09/24/22 04:37: Sodium Level 137, Potassium Level 4.1, Chloride Level 108H, Carbon Dioxide Level 20L, Anion Gap 9, Blood Urea Nitrogen 16, Creatinine 0.77, Estimat Glomerular Filtration Rate 89, BUN/Creatinine Ratio 21, Glucose Level 149H, Calcium Level 8.5, Corrected Calcium 8.8, Total Bilirubin 0.4, Aspartate Amino Transf (AST/ SGOT) 30, Alanine Aminotransferase (ALT/SGPT) 44, Alkaline Phosphatase 63, Total Protein 5.8L, Albumin 3.6 09/24/22 05:24: White Blood Count 11.3H, Red Blood Count 4.04, Hemoglobin 12.8, Hematocrit 36, Mean Corpuscular Volume 89, Mean Corpuscular Hemoglobin 32, Mean Corpuscular Hemoglobin Concent 36, Red Cell Distribution Width 11.8, Platelet Count 227, Mean Platelet Volume 9.1, Immature Granulocyte % (Auto) 0, Neutrophils (%) (Auto) 86H, Lymphocytes (%) (Auto) 10L, Monocytes (%) (Auto) 4, Eosinophils (%) (Auto) 0, Basophils (%) (Auto) 0, Neutrophils # (Auto) 9.7H, Lymphocytes # (Auto) 1.1, Monocytes # (Auto) 0.4, Eosinophils # (Auto) 0.0, Basophils # (Auto) 0.0, Immature Granulocyte # (Auto) 0.0 Home Meds Active Fluticasone Propionate 50 Mcg/Actuation [place].susp 0 [place] NS DAILY 2 puffs daily Reported Mexiletine HCl 150 Mg Cap 150 Mg PO TID Metoprolol Succinate 50 Mg Tab.er.24h 50 Mg PO DAILY Loratadine 10 Mg Tab.rapdis 10 Mg PO BID Tacrolimus 0.1 % Oint..gm. 30 Gm TP BID PRN Senna-S Tablet (Sennosides/Docusate Sodium) 8.6 Mg-50 Mg Tablet 1 Each PO PRN PRN Gas Relief (Simethicone) 125 Mg Capsule 125 Mg PO PRN PRN Multivitamin 1 Each Tablet 1 Each PO DAILY Victoza 3-Logan (Liraglutide) 0.6 Mg/0.1 Ml (18 Mg/3 Ml) Pen.injctr 1.8 Mg SQ DAILY Furosemide 20 Mg Tablet 20 Mg PO PRN PRN Allergy Relief (Diphenhydramine HCl) 25 Mg Tablet 25 Mg PO AM AND NOON Magnesium Oxide 400 Mg Tablet 400 Mg PO DAILY Benadryl Allergy (Diphenhydramine HCl) 25 Mg Tablet 75 Mg PO HS TAKES 3 (25MG) TABS Rosuvastatin Calcium 40 Mg Tablet 40 Mg PO HS Ranolazine ER (Ranolazine) 1,000 Mg Tab.er.12h 1,000 Mg PO BID Tylenol (Acetaminophen) 325 Mg Capsule 325-650 Mg PO QID PRN Trazodone HCl 50 Mg Tablet 25-50 Mg PO HS TAKES 1/2 TO 1 OF A 50MG TAB Citalopram HBr (Citalopram Hydrobromide) 20 Mg Tablet 20 Mg PO HS Zetia (Ezetimibe) 10 Mg Tablet 10 Mg PO HS Clopidogrel (Clopidogrel Bisulfate) 75 Mg Tablet 75 Mg PO DAILY Aspirin EC (Aspirin) 81 Mg Tablet.dr 81 Mg PO DAILY Levothyroxine Sodium 50 Mcg Tablet 50 Mcg PO DAILY Nitroglycerin 0.4 Mg Tab.subl 0.4 Mg SL UD PRN Assessment/Pt Instructions PCP 1 week Discharge Planning: <30 minutes discharge planning Discharge Instructions Discharge Diet: No Restrictions Discharge Physical Examination Vital Signs Vital Signs Date Time Temp Pulse Resp B/P (MAP) Pulse Ox O2 Delivery O2 Flow Rate FiO2 09/24/22 07:59 36.5 61 12 90/60 (70) 98 Room Air 09/21/22 21:19 21 Allergies: Coded Allergies: nitrofurantoin (Verified Allergy, Severe, 03/02/20) shellfish derived (Verified Allergy, Severe, 03/02/20) atorvastatin (Verified Allergy, Intermediate, 03/02/20) pt states it makes her hurt all over/extreme pain Penicillins (Unverified Allergy, Mild, 06/09/08) Proton Pump Inhibitors (Verified Allergy, Unknown, ANGINA, 02/20/21) gluten (Verified Allergy, Unknown, 12/05/21) codeine (Verified Adverse Reaction, Mild, 12/03/21) Night terrors, psych response Discharge Summary Date of Admission Sep 21, 2022 at 16:12 Date of Discharge Discharge Date: Sep 23, 2022 Admission Diagnosis I performed a history and physical examination of the patient and discussed management. I reviewed the resident's note and agree with the documented findings and plan of care. Discharge Diagnosis Assessment: Chest pain with abnl EST performing cath today Plan: Appreciate Cards (1) History of CVA (cerebrovascular accident) Status: Chronic Assessment & Plan: - Occurred 2021 - R-sided deficits. PLAN: - head CT WO, no acute intracranial hemorrhage. (2) CAD (coronary artery disease) Status: Acute Assessment & Plan: CAD with previous PCI to LAD; coronary angiogram June 2013 showed patent stent. PLAN: - See cardiology recommendations (3) HTN (hypertension) Status: Chronic (4) Chest pain Status: Acute Assessment & Plan: - PT complaining of chest pressure, tremors, photophobia on presentation to ED PLAN: ACS r/o work-up - EKG, LBBB - Troponin 0.049--> - CXR - CMP - CBC, coag WNL Qualifiers: Qualified Codes: R07.9 - Chest pain, unspecified (5) HLD (hyperlipidemia) Status: Chronic LULU WAGNER DO Sep 24, 2022 09:21
[2022-09-24 11:31] VITALS: BP 102/60
== END 2022-09-24 15:40 | disposition home or self-care (01) ==
LOC: EDUNIT# 13:52 → ER 13:53 → CSD 16:12
PROVIDERS: ADMIT Internal Medicine; ATTEND Internal Medicine
DX: I25.10 Atherosclerotic heart disease of native coronary artery without angina pectoris (principal); I44.7 Left bundle-branch block, unspecified; I10 Essential (primary) hypertension; I49.3 Ventricular premature depolarization; E78.5 Hyperlipidemia, unspecified; E66.9 Obesity, unspecified; R77.8 Other specified abnormalities of plasma proteins; R25.1 Tremor, unspecified; G47.33 Obstructive sleep apnea (adult) (pediatric); M34.9 Systemic sclerosis, unspecified; Z87.19 Personal history of other diseases of the digestive system; Z86.73 Personal history of transient ischemic attack (TIA), and cerebral infarction without residual deficits; Z98.61 Coronary angioplasty status; Z79.82 Long term (current) use of aspirin; Z79.01 Long term (current) use of anticoagulants; Z86.79 Personal history of other diseases of the circulatory system
CPT/HCPCS: 70450; 71045; 78452; 80053 ×4; 80061; 82947; 84484 ×2; 85025 ×4; 85610; 85730; 93005 ×3; 93017; 93458; 96372 ×3; 99284; A9502; C1760; C1894; G0378; 36415

== ENCOUNTER 2022-11-26 10:40 | Outpatient (RCR) | payer MEDICARE, MEDICAID ==
[~2022-11-26 10:40] MED LIST changes: -DICL100G13 TP; +DICL100G60 TP; -EZET10TA17 PO; +EZET10TA83 PO; +LORA-1389 PO; +NF-MEXI150 PO
== END 2022-11-30 | disposition home or self-care (01) ==
PROVIDERS: ATTEND Pediatrics
DX: R47.9 Unspecified speech disturbances (principal)

== ENCOUNTER 2022-12-17 21:25 | Observation (INO) | payer MEDICARE, MEDICAID ==
[~2022-12-17] VITALS: Ht 155 cm; Wt 98.7 kg
--- NOTE | 2022-12-17 21:49 | ED Chest Pain ---
General Chief Complaint: Chest Pain Stated Complaint: CHEST PAIN Source: patient Exam Limitations: no limitations (INA WEN) History of Present Illness Date Seen by Provider: Dec 17, 2022 Time Seen by Provider: 21:35 Initial Comments Patient presents today with a 3 day history of chest pain that radiates to her back. She says that the pain feels like a stabbing pain and rates it as a 7/10 at this time. She describes the radiation to her back left scapula. She has shortness of breath upon mild exertion since the beginning of her chest pain. She has a history of CO in 2020 with a stent placement that same year. She has had two strokes within the least year in a half and is currently taking Aspirin and Plavix. She has felt somewhat dizzy and off balance during times over the past 3 days. She denies any fevers, chills, dysuria, nausea or vomiting at this time. 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 Patient specifically describes her pain as worsening with exertion. She has also noted recent significant dyspnea on exertion. Cardiology notes from prior visits were reviewed. In particular, she had angiography performed in August by Dr. Oden. She was noted to have a patent stent in the proximal/ostial LAD followed by 50% stenosis with distal myocardial bridging with 50 to 60% stenosis in the artery that is less than 1 mm in diameter. Her chest pain at that time was thought to be secondary to small vessel disease and she was started on long-acting nitroglycerin. She has developed this pain despite taking Ranexa. Her primary die cutter diamond is Dr. Vora. Her most recent stent placement was performed by Dr. Brewer in [place]. She has also received cardiac care at [facility], presumably electrophysiology evaluation. She is on mexiletine suggesting she has some history of arrhythmia. She has an implanted loop recorder. (KIA REGALADO MD) Allergies and Home Medications Allergies Coded Allergies: nitrofurantoin (Verified Allergy, Severe, 03/02/20) shellfish derived (Verified Allergy, Severe, 03/02/20) atorvastatin (Verified Allergy, Intermediate, 03/02/20) pt states it makes her hurt all over/extreme pain Penicillins (Unverified Allergy, Mild, 06/09/08) Proton Pump Inhibitors (Verified Allergy, Unknown, ANGINA, 02/20/21) gluten (Verified Allergy, Unknown, 12/05/21) codeine (Verified Adverse Reaction, Mild, 12/03/21) Night terrors, psych response Patient Home Medication List Home Medication List Reviewed: Yes (INA WEN) Acetaminophen (Tylenol) 325 Mg Capsule, 325-650 MG PO QID PRN for PAIN-MILD (1- 4), (Reported) Entered as Reported by: CT [place] on 12/01/21 1719 Aspirin (Aspirin EC) 81 Mg Tablet.dr, 81 MG PO DAILY, (Reported) Entered as Reported by: ISABELLA CARDOZO on 02/20/21 1335 Citalopram Hydrobromide (Citalopram HBr) 20 Mg Tablet, 20 MG PO HS, (Reported) Entered as Reported by: ISABELLA CARDOZO on 07/18/21 1548 Clopidogrel Bisulfate (Clopidogrel) 75 Mg Tablet, 75 MG PO DAILY, (Reported) Entered as Reported by: ISABELLA CARDOZO on 02/20/21 1335 Diphenhydramine HCl (Benadryl Allergy) 25 Mg Tablet, 75 MG PO HS, (Reported) Entered as Reported by: ISABELLA CARDOZO on 12/03/21 1229 Diphenhydramine HCl (Allergy Relief) 25 Mg Tablet, 25 MG PO AM AND NOON, (Reported) Entered as Reported by: ARTEMIO HOOPER on 06/25/22 0727 Ezetimibe (Zetia) 10 Mg Tablet, 10 MG PO HS, (Reported) Entered as Reported by: YENNI WOMACK on 07/18/21 1316 Fluticasone Propionate (Fluticasone Propionate) 50 Mcg/Actuation [place].susp, 0 SPRAY NS DAILY Prescribed by: LULU WAGNER on 12/10/21 0559 Furosemide (Furosemide) 20 Mg Tablet, 20 MG PO PRN PRN for EDEMA, (Reported) Entered as Reported by: ARTEMIO HOOPER on 06/25/22726 Levothyroxine Sodium (Levothyroxine Sodium) 50 Mcg Tablet, 50 MCG PO DAILY, (Reported) Entered as Reported by: ISABELLA CARDOZO on 02/20/21 1335 Liraglutide (Victoza 3-Logan) 0.6 Mg/0.1 Ml (18 Mg/3 Ml) Pen.injctr, 1.8 MG SQ DAILY, (Reported) Entered as Reported by: ARTEMIO HOOPER on 06/25/22726 Loratadine (Loratadine) 10 Mg Tab.rapdis, 10 MG PO BID, (Reported) Entered as Reported by: VENANCIO ROUSE on 09/22/22 113 Magnesium Oxide (Magnesium Oxide) 400 Mg Tablet, 400 MG PO DAILY, (Reported) Entered as Reported by: ARTEMIO HOOPER on 06/25/22726 Metoprolol Succinate (Metoprolol Succinate) 50 Mg Tab.er.24h, 50 MG PO DAILY, (Reported) Entered as Reported by: VENANCIO ROUSE on 09/22/22 1137 Mexiletine HCl (Mexiletine HCl) 150 Mg Cap, 150 MG PO TID, (Reported) Entered as Reported by: VENANCIO ROUSE on 09/22/22 114 Multivitamin (Multivitamin) 1 Each Tablet, 1 EACH PO DAILY, (Reported) Entered as Reported by: ARTEMIO HOOPER on 06/25/22726 Nitroglycerin (Nitroglycerin) 0.4 Mg Tab.subl, 0.4 MG SL UD PRN for CHEST PAIN, (Reported) Entered as Reported by: ISABELLA CARDOZO on 06/27/20 0954 Ranolazine (Ranolazine ER) 1,000 Mg Tab.er.12h, 1,000 MG PO BID, (Reported) Entered as Reported by: ISABELLA CARDOZO on 12/03/21 1229 Rosuvastatin Calcium (Rosuvastatin Calcium) 40 Mg Tablet, 40 MG PO HS, (Reported) Entered as Reported by: ISABELLA CARDOZO on 12/03/21 1229 Sennosides/Docusate Sodium (Senna-S Tablet) 8.6 Mg-50 Mg Tablet, 1 EACH PO PRN PRN for CONSTIPATION, (Reported) Entered as Reported by: ARTEMIO HOOPER on 06/25/22726 Simethicone (Gas Relief) 125 Mg Capsule, 125 MG PO PRN PRN for GAS, (Reported) Entered as Reported by: ARTEMIO HOOPER on 06/25/22726 Tacrolimus (Tacrolimus) 0.1 % Oint..gm., 30 GM TP BID PRN for PRN, (Reported) Entered as Reported by: ARTEMIO HOOPER on 06/25/22726 Trazodone HCl (Trazodone HCl) 50 Mg Tablet, 25-50 MG PO HS, (Reported) Entered as Reported by: CT GATICA on 12/01/21 171 Review of Systems Review of Systems Constitutional: No chills, No diaphoresis; dizziness, weakness EENTM: No Symptoms Reported Respiratory: Denies Cough; SOA With Exertion Cardiovascular: Chest Pain, Lightheadedness; Denies Palpitations, Denies Syncope Gastrointestinal: No Symptoms Reported Genitourinary: No Symptoms Reported Musculoskeletal: back pain (INA WEN) Skin: no symptoms reported Psychiatric/Neurological: No Symptoms Reported Endocrine: No Symptoms Reported Hematologic/Lymphatic: No Symptoms Reported (KIA REGALADO MD) All Other Systems Reviewed Negative Unless Noted: Yes (INA WEN) Past Xwpexsq-Xpikjz-Otgacw Hx Patient Social History Tobacco Use?: No Use of E-Cig and/or Vaping dev: No Substance use?: No Alcohol Use?: No (INA WEN) Immunizations Up To Date Tetanus Booster (TDap): Unknown First/Initial COVID19 Vaccinat: 2020 Second COVID19 Vaccination Tu: 2020 Third COVID19 Vaccination Date: 2021 (INA WEN) Seasonal Allergies Seasonal Allergies: Yes (INA WEN) Past Medical History Surgery/Hospitalization HX: SYSTEMIC SCLEROSIS, CELIAC DISEAST, ARTHRITIS, STROKE, CARDIAC STENT Surgeries: Yes (C-SPINE SURGERY; LEFT ELBOW ULNAR NERVE SURGERY;CARDIAC CATH- STENT X 1) Cardiac, Coronary Stent, Gallbladder, Orthopedic Respiratory: Yes Asthma, Sleep Apnea Currently Using CPAP: Yes Cardiac: Yes (CO X 2 ; STENT X 1, HAS CARDIAC LOOP RECORDER) Atrial Fibrillation, Chronic Edema/Swelling, Coronary Artery Disease, Heart Attack, High Cholesterol, Hypertension, Rheumatic Fever Neurological: Yes (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, L HEARING LOSS, L CHEEK NUMB) 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, Stroke 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 Genitourinary: No Gastrointestinal: Yes (S/P CHOLECYSTECTOMY; CELIAC DISEASE) Gall Bladder Disease Musculoskeletal: Yes (SCLERODERMA; C-SPINE SURGERY; LEFT ELBOW ULNAR NERVE S URGERY) Rheumatoid Arthritis Endocrine: Yes Hypothyroidsim HEENT: Yes (SINUS PROBLEMS,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) Cancer: No Psychosocial: Yes Anxiety, Depression Integumentary: Yes Psoriasis Blood Disorders: No (INA WEN) Family Medical History Alcoholism G8 BROTHER, Onset:15's - 20 Arthritis 19 MOTHER, Onset:Adolescence G8 BROTHER, Onset:Adolescence G8 SISTER, Onset:25's - 30 Asthma G8 BROTHER Cataracts 19 FATHER, Onset:60 years & older Deafness or hearing loss 19 FATHER Dementia 19 FATHER Diabetes mellitus 19 MOTHER G8 BROTHER Hypertension 19 FATHER G8 BROTHER Myocardial infarction 19 FATHER, Onset:60 years & older G8 BROTHER, Onset:40's - 50 Psychosocial problem G8 BROTHER, Onset:25's - 30 Severe allergy 19 FATHER, Onset: 19 MOTHER, Onset:Childhood PAST SURGICAL HISTORY: -CERVICAL SPINE SURGERY -LEFT ELBOW ULNAR NERVE SURGERY -CHOLECYSTECTOMY -CARDIAC CATHS-- -03/02/[address] VORA: CONCLUSIONS: 1. Coronary artery disease primarily consisting of 95% ostial stenosis of a first diagonal of the left anterior descending to which successful balloon angioplasty was carried out with reduced the stenosis to less than 30%. Elsewhere, the patient exhibits mild to moderate diffuse coronary plaques. 2. Normal global left ventricular systolic function with an ejection fraction of approximately 60%. 3. Elevated left ventricular end-diastolic pressure. -HAD STENT X 1 PLACED 06/10/20 AT [facility]. -LAST CARDIAC CATH DONE HERE 06/27/[address] VORA: CONCLUSIONS: 1. Mild coronary artery disease. 2. Patent stent in the mid left anterior descending artery. 3. Normal global left ventricular systolic function with ejection fraction of 55% to 60%. 4. Normal left ventricular end-diastolic pressure. (INA WEN) Physical Exam Vital Signs Vital Signs - First Documented 12/17/22 21:26 Temp 36.5 Pulse 75 Resp 12 B/P (MAP) 91/79 (83) Pulse Ox 96 O2 Delivery Room Air (KIA REGALADO MD) Vital Signs Capillary Refill : (INA WEN) Height, Weight, BMI Height: '" Weight: lbs. oz. kg; 40.14 BMI Method:Estimated General Appearance: No Apparent Distress, WD/WN Neck: Supple; No JVD Respiratory: Lungs Clear, Normal Breath Sounds, No Accessory Muscle Use, No Respiratory Distress Cardiovascular: Regular Rate, Rhythm, No JVD, No Murmur, Other (edema to bilateral lower extremties) Gastrointestinal: Non Tender, Soft Extremity: Non Tender, No Calf Tenderness Neurologic/Psychiatric: Alert, Oriented x3, Normal Mood/Affect, baker doughnut II-XII Norm as Tested (INA WEN) Procedures/Interventions Suture Size: 5-0 (INA WEN) Progress/Results/Core Measures Results/Orders Lab Results Laboratory Tests Test 12/17/22 21:40 Range/Units White Blood Count 7.9 4.3-11.0 10^3/uL Red Blood Count 4.48 3.80-5.11 10^6/uL Hemoglobin 14.0 11.5-16.0 g/dL Hematocrit 41 35-52 % Mean Corpuscular Volume 92 80-99 fL Mean Corpuscular Hemoglobin 31 25-34 pg Mean Corpuscular Hemoglobin Concent 34 32-36 g/dL Red Cell Distribution Width 12.0 10.0-14.5 % Platelet Count 262 130-400 10^3/uL Mean Platelet Volume 9.2 9.0-12.2 fL Immature Granulocyte % (Auto) 0 % Neutrophils (%) (Auto) 57 42-75 % Lymphocytes (%) (Auto) 28 12-44 % Monocytes (%) (Auto) 12 0-12 % Eosinophils (%) (Auto) 3 0-10 % Basophils (%) (Auto) 1 0-10 % Neutrophils # (Auto) 4.5 1.8-7.8 10^3/uL Lymphocytes # (Auto) 2.2 1.0-4.0 10^3/uL Monocytes # (Auto) 0.9 0.0-1.0 10^3/uL Eosinophils # (Auto) 0.3 0.0-0.3 10^3/uL Basophils # (Auto) 0.0 0.0-0.1 10^3/uL Immature Granulocyte # (Auto) 0.0 0.0-0.1 10^3/uL Prothrombin Time 13.0 12.2-14.7 SEC INR Comment 1.0 0.8-1.4 Activated Partial Thromboplast Time 32 24-35 SEC Sodium Level 145 135-145 MMOL/L Potassium Level 4.0 3.6-5.0 MMOL/L Chloride Level 99 98-107 MMOL/L Carbon Dioxide Level 21 21-32 MMOL/L Anion Gap 25 H 5-14 MMOL/L Blood Urea Nitrogen 13 7-18 MG/DL Creatinine 0.92 0.60-1.30 MG/DL Estimat Glomerular Filtration Rate 72 BUN/Creatinine Ratio 14 Glucose Level 84 70-105 MG/DL Calcium Level 8.8 8.5-10.1 MG/DL Corrected Calcium 8.8 8.5-10.1 MG/DL Magnesium Level 2.5 H 1.6-2.4 MG/DL Total Bilirubin 0.5 0.1-1.0 MG/DL Aspartate Amino Transf (AST/SGOT) 26 5-34 U/L Alanine Aminotransferase (ALT/SGPT) 31 0-55 U/L Alkaline Phosphatase 63 40-136 U/L Myoglobin 25.8 10.0-92.0 NG/ML Troponin I < 0.028 <0.028 NG/ML Total Protein 6.6 6.4-8.2 GM/DL Albumin 4.0 3.2-4.5 GM/DL (KIA REGALADO MD) My Orders Orders - KIA REGALADO MD Cbc And Automated Diff (12/17/22:) Magnesium (12/17/22:28) Chest 1 View, Ap/Pa Only (12/17/22:) Ekg Tracing (12/17/22:) Comprehensive Metabolic Panel (12/17/22:) Myoglobin Serum (12/17/22:) Protime With Inr (12/17/22:) Partial Thromboplastin Time (12/17/22:) O2 (12/17/22:) Monitor-Rhythm Ecg Trace Only (12/17/22:) Lipid Panel (12/18/22 06:00) Ed Iv/Invasive Line Start (12/17/22 21:28) Troponin I [place] (12/17/22 21:28) Ekg Tracing (12/17/22 21:28) Aspirin Chewable Tablet (Aspirin Chewabl (12/17/22 22:15) Enoxaparin Injection (Enoxaparin Injecti (12/17/22 23:45) Citalopram Tablet (Citalopram Tablet) (12/17/22 23:45) Rosuvastatin Tablet (Rosuvastatin Tablet (12/17/22 23:45) (KIA REGALADO MD) Medications Given in ED Current Medications Medications Dose Ordered Sig/Issa Route Start Time Stop Time Status Last Admin Dose Admin Aspirin 243 mg ONCE ONCE PO 12/17/22 22:15 12/17/22 22:17 DC 12/17/22 22:20 243 MG (KIA REGALADO MD) Vital Signs/I&O 12/17/22 21:26 Temp 36.5 Pulse 75 Resp 12 B/P (MAP) 91/79 (83) Pulse Ox 96 O2 Delivery Room Air (KIA REGALADO MD) Progress Progress Note : Time: 21:35 Progress Note Patient is currently sitting up in the bed. Talking and being cooperative with staff. She has had a 3 day history of chest pain that has radiated her back. She describes the pain as a stabbing pain during this time. She says that taking a deep breath makes it feel somewhat better. Looking back into her history shows that she had a cath done in August of this year as well as a stent placement in 2020 in [place]. She states that she has chronic small vessel disease and was suppose to have a CABG done but was not able to be accomplished due to this condition. She rates her pain as a 7 or 8/10 at this time. (INA WEN) Progress Note : Progress Note Patient was interviewed and examined. Chest pain work-up was pursued. Labs were obtained, reviewed, and interpreted by me in their entirety. CBC and CMP were unremarkable. Troponin was negative. EKG demonstrated no arrhythmia or ischemia as noted in my interpretation below. X-ray was unremarkable and unchanged from prior per my interpretation. Radiologist interpretation also noted as below. Nitroglycerin was not administered to this patient as she is already taking Ranexa and had marginal blood pressures. She would not likely tolerate more nitroglycerin. She continued to have the chest pain. I discussed the case with Dr. Oden who recommended treating with a dose of Lovenox and admitting for observation with consultation to Dr. Vora in the morning. Patient was agreeable to admission. We discussed CODE STATUS, and she wishes to remain full code. Case was discussed with Dr. Wagner who was agreeable to admission. (KIA REGALADO MD) Initial ECG Impression Date: Dec 17, 2022 Initial ECG Impression Time: 21:33 Initial ECG Rate: 70 Initial ECG Rhythm: Normal Sinus Comment Sinus rhythm with no ST elevation or depression. PVCs noted. No abnormal intervals or axis deviation. (KIA REGALADO MD) Diagnostic Imaging Diagonstic Imaging: Xray Plain Films/CT/US/NM/MRI: chest Comments Chest x-ray was viewed by me and compared with prior. Report not yet available. There were no significant adverse changes. There is borderline cardiac size. Report later available as below: NAME: LUCILA BRENNER REC#: [id number] PT STATUS: ADM Moises : 1965 PHYSICIAN: KIA REGALADO MD ADMIT DATE: 12/17/22/ICU Draft Date of Exam:12/17/22 CHEST 1 VIEW, AP/PA ONLY INDICATION: Chest pain COMPARISON: 09/21/2022 FINDINGS: Single frontal view of the chest demonstrates normal heart size and pulmonary vascularity. The lungs are well aerated and clear. No large pleural effusion or pneumothorax is seen. The visualized osseous structures show no acute abnormalities. IMPRESSION: 1. No acute cardiopulmonary process. Dictated on workstation # [id number] Dict: 12/18/22 0451 Trans: 12/18/22 0456 [facility] [id number] Interpreted by: MACIE SALINAS MD (KIA REGALADO MD) Departure Communication (Admissions) Time/Spoke to Admitting Phy: 23:40 Dr. Wagner Time/Spoke to Consulting Phy: 23:26 Dr. Oden (KIA REGALADO MD) Impression Primary Impression: Chest pain Qualified Codes: R07.9 - Chest pain, unspecified Additional Impression: History of coronary artery disease Disposition: ADMITTED INPATIENT Condition: Stable Admissions Decision to Admit Reason: Admit from ER (General) Decision to Admit/Date: Dec 17, 2022 Time/Decision to Admit Time: 23:26 (KIA REGALADO MD) Departure-Patient Inst. Referrals: ISABELLA UREÑA DO (PCP/Family) Primary Care Physician Medical Student Attestation and Attending Note: I have personally interviewed and examined this patient along with DARYA Baron. I have reviewed student documentation including history, physical, and assessments. I agree with the documentation except where otherwise noted. Exam: General: Alert, oriented, no acute distress, well developed HEENT: Normocephalic and atraumatic Heart: Regular rate and rhythm without murmur, chest nontender Lungs: Clear to auscultation bilaterally with normal effort Abdomen: Soft, nontender, nondistended, normal bowel sounds Neuropsych: Alert, oriented, no focal deficits Skin: Warm and dry without rashes (KIA REGALADO MD) Copy Copies To 1: SERENITY VORA MD FACP FACC CCDS Copies To 2: ISABELLA UREÑA BRETT Dec 17, 2022 21:49 KIA REGALADO MD Dec 17, 2022 23:49
[2022-12-17 21:58] LABS: BASOPHILS % (AUTO) 1 % (0-10); EOSINOPHILS # (AUTO) 0.3 10^3/uL (0.0-0.3); EOSINOPHILS % (AUTO) 3 % (0-10); HEMATOCRIT 41 % (35-52); LYMPHOCYTES # (AUTO) 2.2 10^3/uL (1.0-4.0); LYMPHOCYTES % (AUTO) 28 % (12-44); MEAN CORPUSCULAR HEMOGLOBIN 31 pg (25-34); MEAN CORPUSCULAR HGB CONC 34 g/dL (32-36); MEAN CORPUSCULAR VOLUME 92 fL (80-99); MEAN PLATELET VOLUME 9.2 fL (9.0-12.2); MONOCYTES # (AUTO) 0.9 10^3/uL (0.0-1.0); MONOCYTES % (AUTO) 12 % (0-12); NEUTROPHILS # (AUTO) 4.5 10^3/uL (1.8-7.8); NEUTROPHILS % (AUTO) 57 % (42-75); PLATELET COUNT 262 10^3/uL (130-400); WHITE BLOOD COUNT 7.9 10^3/uL (4.3-11.0)
[2022-12-17] MEDS ORDERED: ASPIRIN 81 MG CHEWABLE TABLET PO ONE (22:15)
[2022-12-17 22:17] LABS: ALANINE AMINOTRANSFERASE 31 U/L (0-55); ALKALINE PHOSPHATASE 63 U/L (40-136); BILIRUBIN,TOTAL 0.5 MG/DL (0.1-1.0); BUN/CREATININE RATIO 14; CALCIUM 8.8 MG/DL (8.5-10.1); CARBON DIOXIDE 21 MMOL/L (21-32); CHLORIDE 99 MMOL/L (98-107); CREATININE SERUM 0.92 MG/DL (0.60-1.30); GFR ESTIMATED 72; GLUCOSE 84 MG/DL (70-105); MAGNESIUM 2.5 MG/DL (1.6-2.4); SODIUM 145 MMOL/L (135-145); TOTAL PROTEIN 6.6 GM/DL (6.4-8.2)
[2022-12-17] MEDS ORDERED: CITALOPRAM 20 MG TABLET PO ONE (23:45)
[2022-12-17] MEDS ORDERED: ENOXAPARIN 100 MG/1 ML SYRINGE SC ONE (23:45)
[2022-12-17] MEDS ORDERED: ROSUVASTATIN 20 MG TABLET PO ONE (23:45)
[2022-12-18] VITALS (10 sets, daily range): BP systolic 85–113; BP diastolic 40–63
[2022-12-18] MEDS ORDERED: ONDANSETRON INJECTION 4 MG/2 ML (SDV) IV PRN (01:15)
[2022-12-18] MEDS ORDERED: fentaNYL INJECTION 100 MCG/2 ML VIAL IV PRN (01:15)
[2022-12-18] MEDS ORDERED: CATHETER FLUSH 10 ML SYR IVP PRN (01:15)
[2022-12-18 04:54] LABS: BASOPHILS % (AUTO) 0 % (0-10); EOSINOPHILS # (AUTO) 0.3 10^3/uL (0.0-0.3); EOSINOPHILS % (AUTO) 4 % (0-10); HEMATOCRIT 40 % (35-52); HEMOGLOBIN 13.6 g/dL (11.5-16.0); LYMPHOCYTES # (AUTO) 1.9 10^3/uL (1.0-4.0); LYMPHOCYTES % (AUTO) 27 % (12-44); MEAN CORPUSCULAR HEMOGLOBIN 31 pg (25-34); MEAN CORPUSCULAR HGB CONC 34 g/dL (32-36); MEAN CORPUSCULAR VOLUME 91 fL (80-99); MEAN PLATELET VOLUME 9.7 fL (9.0-12.2); MONOCYTES # (AUTO) 0.8 10^3/uL (0.0-1.0); MONOCYTES % (AUTO) 12 % (0-12); NEUTROPHILS # (AUTO) 4.1 10^3/uL (1.8-7.8); NEUTROPHILS % (AUTO) 57 % (42-75); PLATELET COUNT 216 10^3/uL (130-400); WHITE BLOOD COUNT 7.2 10^3/uL (4.3-11.0)
--- NOTE | 2022-12-18 04:57 | Diagnostic Imaging Report ---
INDICATION: Chest pain COMPARISON: 09/21/2022 FINDINGS: Single frontal view of the chest demonstrates normal heart size and pulmonary vascularity. The lungs are well aerated and clear. No large pleural effusion or pneumothorax is seen. The visualized osseous structures show no acute abnormalities. IMPRESSION: 1. No acute cardiopulmonary process. Dictated by: Dictated on workstation # [id number]
[2022-12-18 05:13] LABS: BUN/CREATININE RATIO 17; CARBON DIOXIDE 22 MMOL/L (21-32); CHLORIDE 105 MMOL/L (98-107); CHOLESTEROL 124 MG/DL (< 200); CREATININE SERUM 0.87 MG/DL (0.60-1.30); GFR ESTIMATED 77; GLUCOSE 101 MG/DL (70-105); HDL CHOLESTEROL 41 MG/DL (40-60); POTASSIUM 3.5 MMOL/L (3.6-5.0); SODIUM 139 MMOL/L (135-145); TRIGLYCERIDES 176 MG/DL (<150); VLDL CHOLESTEROL 35 MG/DL (5-40)
[2022-12-18] MEDS ORDERED: CATHETER FLUSH 10 ML SYR IVP SCH (06:00)
--- NOTE | 2022-12-18 07:53 | Consultation-Cardiology ---
HPI-Cardiology Cardiology Consultation: Date of Consultation 12/18/22 Time Seen by a Provider: 08:15 Date of Admission 12-17-22 Attending Physician Isabella Whitaker DO Admitting Physician Admitting Physician: Lulu Samaniego DO Attending Physician: Lulu Samaniego DO Consulting Physician Mary Vora MD HPI: Chief Complaint: Chest pain Ms. Garcia is a 57 yr old female admitted to ICU 5 from the ED with c/o CP. She reports approx 3 days ago she began to have chest pain, left breast area, radiating through to shoulder blade. She describes it as a sharp stabbing pain the comes on with exertion and is relieved with rest after approx 30 minutes. She reports SOB with the discomfort. She reports occ feeling of nausea with the discomfort. She reports she did not take nitro at home. She denies any LE swelling. No c/o diaphoresis. No c/o vomiting or diarrhea. She is not reporting any c/o CP overnight or at this time. Review of Systems-Cardiology Review of Systems Constitutional: No chills, No fever, No malaise Eyes: No vision change Ears/Nose/Throat: No epistaxis, No recent hearing loss Respiratory: As described under HPI Cardiovascular: As described under HPI Gastrointestinal: As described under HPI Genitourinary: No dysuria, No hematuria Musculoskeletal: no symptoms reported Skin: No rash on exposed areas, No ulcerations on exposed areas Psychiatric/Neurological: No anxiety, No depression, No seizure, No focal weakness, No syncope Hematologic: No bleeding abnormalities All Other Systems Reviewed Negative Unless Noted: Yes IDL-Xzupat-Mijwad Hx Patient Social History 2nd Hand Smoke Exposure: Yes Alcohol Use?: No Pt feels they are or have been: No Immunizations Up To Date Tetanus Booster (TDap): Unknown Past Medical History PMH As described under Assessment. Family Medical History Family Medical History: Family h/o father having CAD sisi his 50's. Reports brothers x 2 having CAD and OR's in thier 40's. Family History: 19 FATHER Myocardial infarction, Onset:60 years & older Cataracts, Onset:60 years & older Deafness or hearing loss Dementia Hypertension Severe allergy, Onset: 19 MOTHER Arthritis, Onset:Adolescence Diabetes mellitus Severe allergy, Onset:Childhood G8 BROTHER Alcoholism, Onset:15's - 20 Myocardial infarction, Onset:40's - 50 Psychosocial problem, Onset:25's - 30 G8 BROTHER Arthritis, Onset:Adolescence Asthma Diabetes mellitus Hypertension G8 SISTER Arthritis, Onset: Allergies and Home Medications Allergies Coded Allergies: nitrofurantoin (Verified Allergy, Severe, 03/02/20) shellfish derived (Verified Allergy, Severe, 03/02/20) atorvastatin (Verified Allergy, Intermediate, 03/02/20) pt states it makes her hurt all over/extreme pain Penicillins (Unverified Allergy, Mild, 06/09/08) Proton Pump Inhibitors (Verified Allergy, Unknown, ANGINA, 02/20/21) gluten (Verified Allergy, Unknown, 12/05/21) codeine (Verified Adverse Reaction, Mild, 12/03/21) Night terrors, psych response Patient Home Medication List Acetaminophen (Tylenol) 325 Mg Capsule, 325-650 MG PO QID PRN for PAIN-MILD (1- 4), (Reported) Entered as Reported by: CT GATICA on 12/01/21 3309 Last Action: Reviewed Amlodipine Besylate (Amlodipine Besylate) 2.5 Mg Tablet, 2.5 MG PO DAILY, (Reported) Entered as Reported by: ISABELLA CARDOZO on 12/18/22 124 Last Action: Reviewed Aspirin (Aspirin EC) 81 Mg Tablet.dr, 81 MG PO DAILY, (Reported) Entered as Reported by: ISABELLA CARDOZO on 02/20/21 133 Last Action: Reviewed Citalopram Hydrobromide (Citalopram HBr) 20 Mg Tablet, 20 MG PO HS, (Reported) Entered as Reported by: ISABELLA CARDOZO on 07/18/21 1548 Last Action: Reviewed Clopidogrel Bisulfate (Clopidogrel) 75 Mg Tablet, 75 MG PO DAILY, (Reported) Entered as Reported by: ISABELLA CARDOZO on 02/20/21 133 Last Action: Reviewed Diclofenac Sodium (Diclofenac Sodium) 1 % Gel..gram., 1 APPLIC TP TID PRN for PAIN-BREAKTHROUGH, (Reported) Entered as Reported by: ISABELLA CARDOZO on 12/18/22 124 Last Action: Reviewed Diphenhydramine HCl (Allergy Relief) 25 Mg Tablet, 25 MG PO QID PRN for ALLERGY SYMPTOMS, (Reported) Entered as Reported by: ARTEMIO HOOPER on 06/25/22 726 Last Action: Reviewed Ezetimibe (Ezetimibe) 10 Mg Tablet, 10 MG PO HS, (Reported) Entered as Reported by: ISABELLA CARDOZO on 12/18/221244 Last Action: Reviewed Levothyroxine Sodium (Levothyroxine Sodium) 50 Mcg Tablet, 50 MCG PO DAILY, (Reported) Entered as Reported by: ISABELLA CARDOZO on 02/20/21 1335 Last Action: Reviewed Liraglutide (Victoza 3-Logan) 0.6 Mg/0.1 Ml (18 Mg/3 Ml) Pen.injctr, 1.8 MG SQ DAILY, (Reported) Entered as Reported by: ARTEMIO HOOPER on 06/25/22726 Last Action: Reviewed Loratadine (Loratadine) 10 Mg Tab.rapdis, 10 MG PO BID, (Reported) Entered as Reported by: VENANCIO ROUSE on 09/22/22 113 Last Action: Reviewed Magnesium Oxide (Magnesium Oxide) 500 Mg Tablet, 500 MG PO BID, (Reported) Entered as Reported by: ISABELLA CARDOZO on 12/18/221244 Last Action: Reviewed Metoprolol Succinate (Metoprolol Succinate) 50 Mg Tab.er.24h, 50 MG PO DAILY, (Reported) Entered as Reported by: VENANCIO ROUSE on 09/22/22 113 Last Action: Reviewed Mexiletine HCl (Mexiletine HCl) 150 Mg Cap, 150 MG PO TID, (Reported) Entered as Reported by: ISABELLA CARDOZO on 12/18/22 125 Last Action: Reviewed Multivitamin (Multivitamin) 1 Each Tablet, 1.5 EACH PO DAILY, (Reported) Entered as Reported by: ARTEMIO HOOPER on 06/25/22726 Last Action: Reviewed Nitroglycerin (Nitroglycerin) 0.4 Mg Tab.subl, 0.4 MG SL UD PRN for CHEST PAIN, (Reported) Entered as Reported by: ISABELLA CARDOZO on 06/27/20 0954 Last Action: Reviewed Oxymetazoline HCl (Oxymetazoline HCl) 0.05 % [place], 2 SPRAY NSEACH UD PRN for CONGESTION, (Reported) Entered as Reported by: ISABELLA CARDOZO on 12/18/221244 Last Action: Reviewed Ranolazine (Ranolazine ER) 1,000 Mg Tab.er.12h, 1,000 MG PO BID, (Reported) Entered as Reported by: ISABELLA CARDOZO on 12/03/211228 Last Action: Reviewed Rosuvastatin Calcium (Rosuvastatin Calcium) 40 Mg Tablet, 40 MG PO HS, (Reported) Entered as Reported by: ISABELLA CARDOZO on 12/03/211228 Last Action: Reviewed Trazodone HCl (Trazodone HCl) 50 Mg Tablet, 50 MG PO HS, (Reported) Entered as Reported by: CT GATICA on 12/01/21 171 Last Action: Reviewed Discontinued Medications Diphenhydramine HCl (Benadryl Allergy) 25 Mg Tablet, 75 MG PO HS, (Reported) Discontinued Reason: No Longer Taking Entered as Reported by: ISABELLA CARDOZO on 12/03/211228 Last Action: Discontinued Ezetimibe (Zetia) 10 Mg Tablet, 10 MG PO HS, (Reported) Discontinued Reason: No Longer Taking Entered as Reported by: YENNI WOMACK on 07/18/21 1316 Last Action: Discontinued Fluticasone Propionate (Fluticasone Propionate) 50 Mcg/Actuation [place].susp, 0 SPRAY NS DAILY Discontinued Reason: No Longer Taking Prescribed by: LULU SAMANIEGO on 12/10/21 0559 Last Action: Discontinued Furosemide (Furosemide) 20 Mg Tablet, 20 MG PO PRN PRN for EDEMA, (Reported) Discontinued Reason: No Longer Taking Entered as Reported by: ARTEMIO HOOPER on 06/25/22726 Last Action: Discontinued Magnesium Oxide (Magnesium Oxide) 400 Mg Tablet, 400 MG PO DAILY, (Reported) Discontinued Reason: Prescription changed Entered as Reported by: ARTEMIO HOOPER on 06/25/22726 Mexiletine HCl (Mexiletine HCl) 150 Mg Cap, 150 MG PO TID, (Reported) Discontinued Reason: No Longer Taking Entered as Reported by: VENANCIO ROUSE on 09/22/22 1140 Last Action: Discontinued Sennosides/Docusate Sodium (Senna-S Tablet) 8.6 Mg-50 Mg Tablet, 1 EACH PO PRN PRN for CONSTIPATION, (Reported) Discontinued Reason: No Longer Taking Entered as Reported by: ARTEMIO HOOPER on 06/25/22726 Last Action: Discontinued Simethicone (Gas Relief) 125 Mg Capsule, 125 MG PO PRN PRN for GAS, (Reported) Discontinued Reason: No Longer Taking Entered as Reported by: ARTEMIO FEDERICOSANFORD on 06/25/22726 Last Action: Discontinued Tacrolimus (Tacrolimus) 0.1 % Oint..gm., 30 GM TP BID PRN for PRN, (Reported) Discontinued Reason: No Longer Taking Entered as Reported by: ARTEMIO TIPSANFORD on 06/25/22726 Last Action: Discontinued Physical Exam-Cardiology Physical Exam Vital Signs/I&O Capillary Refill : Less Than 3 Seconds Constitutional: AAO x 3, well-developed, well-nourished HEENT: PERRL, hearing is well preserved, oral hygience is good Neck: No carotid bruit; carotid pulses are 2 + bilaterally Respiratory: No accessory muscle use, No respiratory distress; chest expansion is symmetric, chest is bilaterally symmetric, lungs clear to auscultation Cardiovascular: regular rate-rhythm, S1 and S2 Gastrointestinal: No tender; soft, round, audible bowel sounds Extremities: no lower extremity edema bilateral Neurologic/Psychiatric: oriented x 3, other (moves all extremities) Skin: No rash on exposed areas, No ulcerations on exposed areas Data Review Labs Radiology NAME: LUCILA GARCIA [employer] REC#: [id number] PT STATUS: ADM Moises : 1965 PHYSICIAN: KIA REGALADO MD ADMIT DATE: 12/17/22/ICU Signed Date of Exam:12/17/22 CHEST 1 VIEW, AP/PA ONLY INDICATION: Chest pain COMPARISON: 09/21/2022 FINDINGS: Single frontal view of the chest demonstrates normal heart size and pulmonary vascularity. The lungs are well aerated and clear. No large pleural effusion or pneumothorax is seen. The visualized osseous structures show no acute abnormalities. IMPRESSION: 1. No acute cardiopulmonary process. Dictated by: Dictated on workstation # [id number] Dict: 12/18/22 0451 Trans: 12/18/2245 TENISHA [id number] Interpreted by: MACIE SALINAS MD Electronically signed by: MACIE SALINAS MD 12/18/2245 ECG Impression ECG Comment SR with PVC A/P-Cardiology Assessment/Admission Diagnosis CAD - Card cath and PCI on 03/02/20: Coronary artery disease primarily consisting of 95% ostial stenosis of the left anterior descending to just past origin of large D1 to which successful balloon angioplasty was carried out with reduced the stenosis to less than 30%. Mild plaque in other cors. RCA dominant - Echocardiogram of 03-02-20 showed LVEF 60-65%. PASP 20-25 mmHg - Card cath and PCI on 04/21/20: PTCA for 95% restenosis at site of PTCA in mid LAD, just past D1, reducing the lesion to less than 10% and with normal antegrade flow, LVEDP 12 mmHg, LVEF 50-55% - Cardiac cath on 06-08-[address] Oden: Severe LAD stenosis, transferred to [facility] - Reports cardiac cath with PCI on 06-10-[address] at [facility] - Card cath on 06/26/20: Patent LAD stent, mild to mod distal CAD, anomalous high origin of RCA and mild diffuse disease of RCA, LVEDP 11 mmHg, LVEF 55-60% - Card cath 12/03/[address] Gomez at [facility] in [place], [place]: showed LAD patent stent in the prox LAD, in the mid LAD there is an 80% stenosis in small vessel not amenable to intervention. Approx 50% stenosis in the prox first diag. LVEF 675%. Medical tx was advised. 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, LVEDP 13 mmHg, LVEF 60% - MPI at [facility] on 05/20/22: Moderate-sized, mild severity, reversible perf defect along basilar to mid anterolateral and distal inferoseptal wall (SSS 5, SRS 1, SDS 4) reported to be indeterminate for ischemia, now RWMA, LVEF 75% at rest and 74% after stress - Cardiac cath of 06-25-22 showed moderate CAD, patent stent in the prox LAD. LVEDP 10 mmHg LVEF 50-55% - Cardiac cath of 09-23-[address] 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 Dominant right coronary artery with no significant obstructive disease. Normal left ventricular end- diastolic pressure - Intolerance to isosorbide mononitrate (low bp) - Echocardiogram of 08-26-22 showed LVEF 55-60% CVA , December 2021 - status post tPA treatment - She reports still have minimal residual right-sided weakness (per nurse she reported that her right sided weakness is back to baseline from prior to this event) - Echo on 12-02-21: LVEF 55-60%, PASP WNL - ILR transmissions reviewed on 12-03-21 via [facility] - transmissions have not shown any a-fib/flutter - only NSR with PVC's Palpitations - . 24 HR Holter of 08-10-21 showed NSR with av HR 65 bpm. Frequent PVC (PVC burden 0.7%). No VT or SVT or signif trupti - S/P ILR implant on 08-21-21: NSR with isolated PVCs - Frequent PVCs (PVC burden 15.4%) on ILR. Followed and treated by his EP Dr Condon at [facility] (mexelitine) [place] - Sleep study of 08-13-21 showed mild [place] - following with Dr. Mcneil Carotid dz - minimal plaque per u/s of 07-06-21 HTN - controlled Scleroderma, - by history - managed by PCP Celiac dz - managed by PCP HLD - statin tx - followed by PCP H/o occular stroke Medication Intolerance/allergy - Reported allergy to ASA (however, she has been taking ASA, per her report, without difficulty) - reports h/o convulsions - Reported shellfish allergy Orthopedic - H/O chronic joint pain d/t arthritis Family h/o - premature CAD (brothers x2 and father) Dizziness and vertigo - managed by pcp Discussion and Recomendations Chest pain of undetermined etiology - no evidence of ACS thus far Continue ASA/Plavix Reports allergy to PPI, add Pepcid to regimen Restart BB, low dose d/t asymptomatic low BP Resume statin tx Monitor lab Further recs will be based on her hospital course We would like to thank medical services for this consult Clinical Quality Measures AMI/AHF: ASA po Prior to arrival: Yes GERARD NOLASCO Dec 18, 2022 07:53
[2022-12-18] MEDS ORDERED: FAMOTIDINE 20 MG TABLET PO SCH (09:00)
[2022-12-18] MEDS ORDERED: ASPIRIN 81 MG CHEWABLE TABLET PO SCH (09:00)
[2022-12-18] MEDS ORDERED: meTOprolol TARTRATE (IR) 25 MG TABLET PO SCH (09:00)
[2022-12-18] MEDS ORDERED: POTASSIUM CHLORIDE 20 MEQ TABLET PO NR (09:00)
[2022-12-18] MEDS ORDERED: CLOPIDOGREL 75 MG TABLET PO SCH (09:00)
--- NOTE | 2022-12-18 09:40 | History & Physical-Hospitalist ---
ANTELMO RENEE MD,RESIDENT 12/18/22 0939: History of Present Illness HPI/Chief Complaint CC: CP, SOB HPI: Pt is a 57 yr old female with a medical history significant for CAD s/p prox LAD stent, HTN, h/o CVA 2021, who presented to the ED with c/o CP and associated SOB. She reports onset about days ago, says she began to have chest pain, left breast area, radiating through to left shoulder. She describes it as a sharp stabbing pain that occurs with exertion and is relieved with rest after approximately 30 minutes. She reports some nausea with the discomfort. She reports she did not take nitro at home. She denies any LE swelling, diaphoresis , vomiting or diarrhea. Admitted to ICU for further management. Date Seen 12/18/22 Time Seen by a Provider: 09:40 Attending Physician Charles Whitaker DO PCP Admitting Physician: Wandy Wagner DO Attending Physician: Wandy Wagner DO Referring Physician Date of Admission Dec 17, 2022 at 23:40 Home Medications & Allergies Home Medications Reviewed patient Home Medication Reconciliation performed by pharmacy medication reconciliations metallurgical lab technician and/or nursing. Patients Allergies have been reviewed. Allergies Allergies Coded Allergies nitrofurantoin (Verified Allergy, Severe, 03/02/20) shellfish derived (Verified Allergy, Severe, 03/02/20) atorvastatin (Verified Allergy, Intermediate, 03/02/20) pt states it makes her hurt all over/extreme pain Penicillins (Unverified Allergy, Mild, 06/09/08) Proton Pump Inhibitors (Verified Allergy, Unknown, ANGINA, 02/20/21) gluten (Verified Allergy, Unknown, 12/05/21) codeine (Verified Adverse Reaction, Mild, 12/03/21) Night terrors, psych response Past Mctmaks-Xtkguo-Rqhqbq Hx Patient Social History Tobacco Use?: No Use of E-Cig and/or Vaping dev: No Substance use?: No Alcohol Use?: No Pt feels they are or have been: No Immunizations Up To Date First/Initial COVID19 Vaccinat: 2020 Second COVID19 Vaccination Tu: 2020 Tetanus Booster (TDap): Unknown Hepatitis A: No Hepatitis B: Yes Seasonal Allergies Seasonal Allergies: Yes Current Status Advance Directives: No Primary Language: Ugandan Preferred Spoken Language: Ugandan Sensory deficits: Vision impairment Additional sensory deficits: READING GLASSES Implanted or Applied Medical D: CPAP, Stents Past Medical History Surgeries: Cardiac, Coronary Stent, Gallbladder, Orthopedic Asthma, Sleep Apnea Currently Using CPAP: Yes Atrial Fibrillation, Chronic Edema/Swelling, Coronary Artery Disease, Heart Attack, High Cholesterol, Hypertension, Rheumatic Fever 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, Stroke 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 History: Menopausal Gall Bladder Disease Rheumatoid Arthritis Hypothyroidsim Anxiety, Depression Psoriasis Blood Disorders: No CAD Family Medical History Alcoholism G8 BROTHER, Onset:15's - 20 Arthritis 19 MOTHER, Onset:Adolescence G8 BROTHER, Onset:Adolescence G8 SISTER, Onset:25's - 30 Asthma G8 BROTHER Cataracts 19 FATHER, Onset:60 years & older Deafness or hearing loss 19 FATHER Dementia 19 FATHER Diabetes mellitus 19 MOTHER G8 BROTHER Hypertension 19 FATHER G8 BROTHER Myocardial infarction 19 FATHER, Onset:60 years & older G8 BROTHER, Onset:40's - 50 Psychosocial problem G8 BROTHER, Onset:25's - 30 Severe allergy 19 FATHER, Onset:[place] 19 MOTHER, Onset:Childhood PAST SURGICAL HISTORY: -CERVICAL SPINE SURGERY -LEFT ELBOW ULNAR NERVE SURGERY -CHOLECYSTECTOMY -CARDIAC CATHS-- -03/02/[address] NINO: CONCLUSIONS: 1. Coronary artery disease primarily consisting of 95% ostial stenosis of a first diagonal of the left anterior descending to which successful balloon angioplasty was carried out with reduced the stenosis to less than 30%. Elsewhere, the patient exhibits mild to moderate diffuse coronary plaques. 2. Normal global left ventricular systolic function with an ejection fraction of approximately 60%. 3. Elevated left ventricular end-diastolic pressure. -HAD STENT X 1 PLACED 06/10/20 AT [facility]. -LAST CARDIAC CATH DONE HERE 06/27/[address] NINO: CONCLUSIONS: 1. Mild coronary artery disease. 2. Patent stent in the mid left anterior descending artery. 3. Normal global left ventricular systolic function with ejection fraction of 55% to 60%. 4. Normal left ventricular end-diastolic pressure. Review of Systems Constitutional: no symptoms reported EENTM: no symptoms reported Respiratory: short of breath Cardiovascular: chest pain Gastrointestinal: nausea Musculoskeletal: no symptoms reported Skin: no symptoms reported Physical Exam Physical Exam Vital Signs Vital Signs - First Documented 12/17/22 21:26 Temp 36.5 Pulse 75 Resp 12 B/P (MAP) 91/79 (83) Pulse Ox 96 O2 Delivery Room Air Capillary Refill : Less Than 3 Seconds Height, Weight, BMI Height: '" Weight: lbs. oz. kg; 41.08 BMI Method:Estimated General Appearance: No Apparent Distress Respiratory: Lungs Clear, Normal Breath Sounds, No Accessory Muscle Use, No Respiratory Distress Cardiovascular: Regular Rate, Rhythm Gastrointestinal: Non Tender, Soft Extremity: Pedal Edema (trace) Neurologic/Psychiatric: Alert, Oriented x3, Normal Mood/Affect Skin: Warm/Dry Results Results/Procedures Labs Laboratory Tests 12/17/22 21:40 12/18/22 04:13 Patient resulted labs reviewed. Assessment/Plan Admission Diagnosis Chest pain Admission Status: Observation Reason for Inpatient Admission: Chest pain Diagnosis/Problems Diagnosis/Problems (1) Chest pain Status: Acute Assessment & Plan: Pt reports experiencing chest pain on exertion PLAN: Cardiology consult ORAL AND MAXILLOFACIAL SURGERY medications EKG - NS PVCs Qualifiers: Chest pain type: unspecified Qualified Codes: R07.9 - Chest pain, unspecified (2) Dyspnea Assessment & Plan: Associated with exertion and during chest pain episodes Currently stable on RA (12/18) PLAN: Supplemental O2 if needed (3) CAD (coronary artery disease) Status: Acute Assessment & Plan: Extensive CAD, s/p stent to proximal LAD PLAN: Telemetry Cardiology consult ORAL AND MAXILLOFACIAL SURGERY ASA/plavix (4) HTN (hypertension) Status: Chronic (5) History of CVA (cerebrovascular accident) Status: Chronic Clinical Quality Measures AMI/AHF: ASA po Prior to arrival: Yes KENNA WAGNERAxel BLOUNT 12/19/22 0414: History of Present Illness HPI/Chief Complaint Chief complaint: Chest pain HPI: This is a 57-year-old female who has a past medical history of CAD previous stent who presented to the ER with chest pain. Troponins have been negative. No ST changes on EKG. Cardiology will evaluate. Source: patient Exam Limitations: no limitations Past Ruaoksf-Khjobl-Rnqpql Hx Patient Social History Marrital Status: single Employed/Student: unemployed Smoking Status: Former Smoker Past Medical History Surgeries: Coronary Stent Coronary Artery Disease, High Cholesterol, Hypertension Family Medical History Alcoholism G8 BROTHER, Onset:15's - 20 Arthritis 19 MOTHER, Onset:Adolescence G8 BROTHER, Onset:Adolescence G8 SISTER, Onset:25's - 30 Asthma G8 BROTHER Cataracts 19 FATHER, Onset:60 years & older Deafness or hearing loss 19 FATHER Dementia 19 FATHER Diabetes mellitus 19 MOTHER G8 BROTHER Hypertension 19 FATHER G8 BROTHER Myocardial infarction 19 FATHER, Onset:60 years & older G8 BROTHER, Onset:40's - 50 Psychosocial problem G8 BROTHER, Onset:25's - 30 Severe allergy 19 FATHER, Onset: 19 MOTHER, Onset:Childhood Review of Systems Constitutional: see HPI Cardiovascular: chest pain Physical Exam Physical Exam General Appearance: No Apparent Distress, Chronically ill Eyes: Right Eye Normal Inspection, Right Eye PERRL HEENT: PERRL/EOMI, Normal ENT Inspection, Pharynx Normal, Moist Mucous Membranes Neck: Full Range of Motion, Normal Inspection, Non Tender Respiratory: Chest Non Tender, Lungs Clear, Normal Breath Sounds, No Accessory Muscle Use, No Respiratory Distress Cardiovascular: Regular Rate, Rhythm, No Edema, No Gallop, No JVD, No Murmur, Normal Peripheral Pulses Gastrointestinal: Normal Bowel Sounds, No Organomegaly, No Pulsatile Mass, Non Tender, Soft Back: Normal Inspection, No CVA Tenderness, No Vertebral Tenderness Extremity: Normal Capillary Refill, Normal Inspection, Normal Range of Motion, Non Tender, No Calf Tenderness, No Pedal Edema Neurologic/Psychiatric: Alert, Oriented x3, No Motor/Sensory Deficits, Normal Mood/Affect Skin: Normal Color, Warm/Dry Lymphatic: No Adenopathy Assessment/Plan Admission Diagnosis Chest pain CAD Hypertension Hyperlipidemia Plan: Cardiology consult Admission Status: Observation ANTELMO RENEE MD,RESIDENT Dec 18, 2022 09:39 WANDY WAGNER DO Dec 19, 2022 04:14
[2022-12-18] MEDS ORDERED: OXYM-12 NSEACH (12:45)
[2022-12-18] MEDS ORDERED: EZET10TA49 PO (12:45)
[2022-12-18] MEDS ORDERED: AMLO2.5T4 PO (12:45)
[2022-12-18] MEDS ORDERED: DICL100G60 TP (12:45)
[2022-12-18] MEDS ORDERED: MAGN500T PO (12:45)
[2022-12-18] MEDS ORDERED: NF-MEXI150 PO (12:50)
--- NOTE | 2022-12-18 17:00 | Consultation-Cardiology ---
HPI-Cardiology Cardiology Consultation: Date of Consultation 12/18/22 Time Seen by a Provider: 16:40 Date of Admission Attending Physician Isabella Whitaker DO Admitting Physician Admitting Physician: Wandy Samaniego DO Attending Physician: Wandy Samaniego DO Consulting Physician SERENITY NINO MD, MA, FACP, FACC, FSCAI, CCDS Physician requesting consult: Dr Samaniego HPI: Chief Complaint: Chest pain Ms. Garcia is a 57 yr old female admitted to ICU 5 from the ED with c/o CP. She reports approx 3 days ago she began to have chest pain, left breast area, radiating through to shoulder blade. She describes it as a sharp stabbing pain the comes on with exertion and is relieved with rest after approx 30 minutes. She reports SOB with the discomfort. She reports occ feeling of nausea with the discomfort. She reports she did not take nitro at home. She denies any LE swelling. No c/o diaphoresis. No c/o vomiting or diarrhea. She is not reporting any c/o CP overnight or at this time. Review of Systems-Cardiology Review of Systems Constitutional: No chills, No fever, No malaise Eyes: No vision change Ears/Nose/Throat: No epistaxis, No recent hearing loss Respiratory: As described under HPI Cardiovascular: As described under HPI Gastrointestinal: As described under HPI Genitourinary: No dysuria, No hematuria Musculoskeletal: no symptoms reported Skin: No rash on exposed areas, No ulcerations on exposed areas Psychiatric/Neurological: No anxiety, No depression, No seizure, No focal weakness, No syncope Hematologic: No bleeding abnormalities All Other Systems Reviewed Negative Unless Noted: Yes EHT-Zuzvom-Pgjgvw Hx Patient Social History 2nd Hand Smoke Exposure: Yes Alcohol Use?: No Pt feels they are or have been: No Immunizations Up To Date Tetanus Booster (TDap): Unknown Past Medical History PMH As described under Assessment. Family Medical History Family Medical History: Family h/o father having CAD sisi his 50's. Reports brothers x 2 having CAD and ID's in thier 40's. Family History: Alcoholism G8 BROTHER, Onset:15's - 20 Arthritis 19 MOTHER, Onset:Adolescence G8 BROTHER, Onset:Adolescence G8 SISTER, Onset:25's - 30 Asthma G8 BROTHER Cataracts 19 FATHER, Onset:60 years & older Deafness or hearing loss 19 FATHER Dementia 19 FATHER Diabetes mellitus 19 MOTHER G8 BROTHER Hypertension 19 FATHER G8 BROTHER Myocardial infarction 19 FATHER, Onset:60 years & older G8 BROTHER, Onset:40's - 50 Psychosocial problem G8 BROTHER, Onset:25's - 30 Severe allergy 19 FATHER, Onset:[place] 19 MOTHER, Onset:Childhood Allergies and Home Medications Allergies Coded Allergies: nitrofurantoin (Verified Allergy, Severe, 03/02/20) shellfish derived (Verified Allergy, Severe, 03/02/20) atorvastatin (Verified Allergy, Intermediate, 03/02/20) pt states it makes her hurt all over/extreme pain Penicillins (Unverified Allergy, Mild, 06/09/08) Proton Pump Inhibitors (Verified Allergy, Unknown, ANGINA, 02/20/21) gluten (Verified Allergy, Unknown, 12/05/21) codeine (Verified Adverse Reaction, Mild, 12/03/21) Night terrors, psych response Patient Home Medication List Home Medication List Reviewed: Yes Acetaminophen (Tylenol) 325 Mg Capsule, 325-650 MG PO QID PRN for PAIN-MILD (1- 4), (Reported) Entered as Reported by: CT GATICA on 12/01/21 1719 Last Action: Reviewed Amlodipine Besylate (Amlodipine Besylate) 2.5 Mg Tablet, 2.5 MG PO DAILY, (R eported) Entered as Reported by: ISABELLA CARDOZO on 12/18/22 1245 Last Action: Reviewed Aspirin (Aspirin EC) 81 Mg Tablet.dr, 81 MG PO DAILY, (Reported) Entered as Reported by: ISABELLA CARDOZO on 02/20/21 133 Last Action: Reviewed Citalopram Hydrobromide (Citalopram HBr) 20 Mg Tablet, 20 MG PO HS, (Reported) Entered as Reported by: ISABELLA CARDOZO on 07/18/21 1548 Last Action: Reviewed Clopidogrel Bisulfate (Clopidogrel) 75 Mg Tablet, 75 MG PO DAILY, (Reported) Entered as Reported by: ISABELLA CARDOZO on 02/20/21 1335 Last Action: Reviewed Diclofenac Sodium (Diclofenac Sodium) 1 % Gel..gram., 1 APPLIC TP TID PRN for PAIN-BREAKTHROUGH, (Reported) Entered as Reported by: ISABELLA CARDOZO on 12/18/22 1245 Last Action: Reviewed Diphenhydramine HCl (Allergy Relief) 25 Mg Tablet, 25 MG PO QID PRN for ALLERGY SYMPTOMS, (Reported) Entered as Reported by: ARTEMIO HOOPER on 06/25/22726 Last Action: Reviewed Ezetimibe (Ezetimibe) 10 Mg Tablet, 10 MG PO HS, (Reported) Entered as Reported by: ISABELLA CARDOZO on 12/18/221244 Last Action: Reviewed Levothyroxine Sodium (Levothyroxine Sodium) 50 Mcg Tablet, 50 MCG PO DAILY, (Reported) Entered as Reported by: ISABELLA CARDOZO on 02/20/21 1335 Last Action: Reviewed Liraglutide (Victoza 3-Logan) 0.6 Mg/0.1 Ml (18 Mg/3 Ml) Pen.injctr, 1.8 MG SQ DAILY, (Reported) Entered as Reported by: ARTEMIO HOOPER on 06/25/22726 Last Action: Reviewed Loratadine (Loratadine) 10 Mg Tab.rapdis, 10 MG PO BID, (Reported) Entered as Reported by: VENANCIO ROUSE on 09/22/22 113 Last Action: Reviewed Magnesium Oxide (Magnesium Oxide) 500 Mg Tablet, 500 MG PO BID, (Reported) Entered as Reported by: ISABELLA CARDOZO on 12/18/221244 Last Action: Reviewed Metoprolol Succinate (Metoprolol Succinate) 50 Mg Tab.er.24h, 50 MG PO DAILY, (Reported) Entered as Reported by: VENANCIO ROUSE on 09/22/22 113 Last Action: Reviewed Mexiletine HCl (Mexiletine HCl) 150 Mg Cap, 150 MG PO TID, (Reported) Entered as Reported by: ISABELLA CARDOZO on 12/18/22 125 Last Action: Reviewed Multivitamin (Multivitamin) 1 Each Tablet, 1.5 EACH PO DAILY, (Reported) Entered as Reported by: ARTEMIO HOOPER on 06/25/22726 Last Action: Reviewed Nitroglycerin (Nitroglycerin) 0.4 Mg Tab.subl, 0.4 MG SL UD PRN for CHEST PAIN, (Reported) Entered as Reported by: SIABELLA CARDOZO on 06/27/20 4749 Last Action: Reviewed Oxymetazoline HCl (Oxymetazoline HCl) 0.05 % [place], 2 SPRAY NSEACH UD PRN for CONGESTION, (Reported) Entered as Reported by: ISABELLA CARDOZO on 12/18/22 1245 Last Action: Reviewed Ranolazine (Ranolazine ER) 1,000 Mg Tab.er.12h, 1,000 MG PO BID, (Reported) Entered as Reported by: ISABELLA CARDOZO on 12/03/21 1229 Last Action: Reviewed Rosuvastatin Calcium (Rosuvastatin Calcium) 40 Mg Tablet, 40 MG PO HS, (Reported) Entered as Reported by: ISABELLA CARDOZO on 12/03/21 122 Last Action: Reviewed Trazodone HCl (Trazodone HCl) 50 Mg Tablet, 50 MG PO HS, (Reported) Entered as Reported by: CT GATICA on 12/01/21 171 Last Action: Reviewed Discontinued Medications Diphenhydramine HCl (Benadryl Allergy) 25 Mg Tablet, 75 MG PO HS, (Reported) Discontinued Reason: No Longer Taking Entered as Reported by: ISABELLA CARDOZO on 12/03/211228 Last Action: Discontinued Ezetimibe (Zetia) 10 Mg Tablet, 10 MG PO HS, (Reported) Discontinued Reason: No Longer Taking Entered as Reported by: YENNI WOMACK on 07/18/21 1316 Last Action: Discontinued Fluticasone Propionate (Fluticasone Propionate) 50 Mcg/Actuation [place].susp, 0 SPRAY NS DAILY Discontinued Reason: No Longer Taking Prescribed by: WANDY SAMANIEGO on 12/10/21 0559 Last Action: Discontinued Furosemide (Furosemide) 20 Mg Tablet, 20 MG PO PRN PRN for EDEMA, (Reported) Discontinued Reason: No Longer Taking Entered as Reported by: ARTEMIO HOOPER on 06/25/22726 Last Action: Discontinued Magnesium Oxide (Magnesium Oxide) 400 Mg Tablet, 400 MG PO DAILY, (Reported) Discontinued Reason: Prescription changed Entered as Reported by: ARTEMIO HOOPER on 06/25/22726 Mexiletine HCl (Mexiletine HCl) 150 Mg Cap, 150 MG PO TID, (Reported) Discontinued Reason: No Longer Taking Entered as Reported by: VENANCIO ROUSE on 09/22/22 1140 Last Action: Discontinued Sennosides/Docusate Sodium (Senna-S Tablet) 8.6 Mg-50 Mg Tablet, 1 EACH PO PRN PRN for CONSTIPATION, (Reported) Discontinued Reason: No Longer Taking Entered as Reported by: ARTEMIO HOOPER on 06/25/22726 Last Action: Discontinued Simethicone (Gas Relief) 125 Mg Capsule, 125 MG PO PRN PRN for GAS, (Reported) Discontinued Reason: No Longer Taking Entered as Reported by: ARTEMIO HOOPER on 06/25/22726 Last Action: Discontinued Tacrolimus (Tacrolimus) 0.1 % Oint..gm., 30 GM TP BID PRN for PRN, (Reported) Discontinued Reason: No Longer Taking Entered as Reported by: ARTEMIO HOOPER on 06/25/22726 Last Action: Discontinued Physical Exam-Cardiology Physical Exam Vital Signs/I&O 12/18/22 12/18/22 12/18/22 12/18/22 07:02 08:00 08:00 11:20 Temp 36.0 35.8 Pulse 63 70 Resp 11 B/P (MAP) 104/53 (70) Pulse Ox 98 98 O2 Delivery Room Air Room Air 12/18/22 12/18/22 12/18/22 12:00 13:00 15:08 Temp 36.3 Pulse 64 72 Resp 18 B/P (MAP) 113/63 (80) Pulse Ox 94 O2 Delivery Room Air Capillary Refill : Less Than 3 Seconds Constitutional: AAO x 3, well-developed, well-nourished HEENT: PERRL, hearing is well preserved, oral hygience is good Neck: No carotid bruit; carotid pulses are 2 + bilaterally Respiratory: No accessory muscle use, No respiratory distress; chest expansion is symmetric, chest is bilaterally symmetric, lungs clear to auscultation Cardiovascular: regular rate-rhythm, S1 and S2 Gastrointestinal: No tender; soft, round, audible bowel sounds Extremities: no lower extremity edema bilateral Neurologic/Psychiatric: oriented x 3, other (moves all extremities) Skin: No rash on exposed areas, No ulcerations on exposed areas Data Review Labs Laboratory Tests 12/17/22 21:40: White Blood Count 7.9, Red Blood Count 4.48, Hemoglobin 14.0, Hematocrit 41, Mean Corpuscular Volume 92, Mean Corpuscular Hemoglobin 31, Mean Corpuscular Hemoglobin Concent 34, Red Cell Distribution Width 12.0, Platelet Count 262, Mean Platelet Volume 9.2, Immature Granulocyte % (Auto) 0, Neutrophils (%) (Auto) 57, Lymphocytes (%) (Auto) 28, Monocytes (%) (Auto) 12, Eosinophils (%) (Auto) 3, Basophils (%) (Auto) 1, Neutrophils # (Auto) 4.5, Lymphocytes # (Auto) 2.2, Monocytes # (Auto) 0.9, Eosinophils # (Auto) 0.3, Basophils # (Auto) 0.0, Immature Granulocyte # (Auto) 0.0, Prothrombin Time 13.0, INR Comment 1.0, Activated Partial Thromboplast Time 32, Sodium Level 145, Potassium Level 4.0, Chloride Level 99, Carbon Dioxide Level 21, Anion Gap 25H, Blood Urea Nitrogen 13, Creatinine 0.92, Estimat Glomerular Filtration Rate 72, BUN/Creatinine Ratio 14, Glucose Level 84, Calcium Level 8.8, Corrected Calcium 8.8, Magnesium Level 2.5H, Total Bilirubin 0.5, Aspartate Amino Transf (AST/SGOT) 26, Alanine Aminotransferase (ALT/SGPT) 31, Alkaline Phosphatase 63, Myoglobin 25.8, Troponin I < 0.028, Total Protein 6.6, Albumin 4.0 12/18/22 04:13: White Blood Count 7.2, Red Blood Count 4.34, Hemoglobin 13.6, Hematocrit 40, Me an Corpuscular Volume 91, Mean Corpuscular Hemoglobin 31, Mean Corpuscular Hemoglobin Concent 34, Red Cell Distribution Width 12.0, Platelet Count 216, Mean Platelet Volume 9.7, Immature Granulocyte % (Auto) 0, Neutrophils (%) (Auto) 57, Lymphocytes (%) (Auto) 27, Monocytes (%) (Auto) 12, Eosinophils (%) (Auto) 4, Basophils (%) (Auto) 0, Neutrophils # (Auto) 4.1, Lymphocytes # (Auto) 1.9, Monocytes # (Auto) 0.8, Eosinophils # (Auto) 0.3, Basophils # (Auto) 0.0, Immature Granulocyte # (Auto) 0.0, Sodium Level 139, Potassium Level 3.5L, Chloride Level 105, Carbon Dioxide Level 22, Anion Gap 12, Blood Urea Nitrogen 15, Creatinine 0.87, Estimat Glomerular Filtration Rate 77, BUN/Creatinine Ratio 17, Glucose Level 101, Calcium Level 9.0, Troponin I < 0.028, Triglycerides Level 176H, Cholesterol Level 124, LDL Cholesterol Direct 63, VLDL Cholesterol 35, HDL Cholesterol 41 Laboratory Tests 12/17/22 21:40 12/18/22 04:13 A/P-Cardiology Assessment/Admission Diagnosis CAD - Card cath and PCI on 03/02/20: Coronary artery disease primarily consisting of 95% ostial stenosis of the left anterior descending to just past origin of large D1 to which successful balloon angioplasty was carried out with reduced the stenosis to less than 30%. Mild plaque in other cors. RCA dominant - Echocardiogram of 03-02-20 showed LVEF 60-65%. PASP 20-25 mmHg - Card cath and PCI on 04/21/20: PTCA for 95% restenosis at site of PTCA in mid LAD, just past D1, reducing the lesion to less than 10% and with normal antegrade flow, LVEDP 12 mmHg, LVEF 50-55% - Cardiac cath on 06-08-[address] Oden: Severe LAD stenosis, transferred to [facility] - Reports cardiac cath with PCI on 06-10-[address] 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 Gomez at [facility] in [place], [place]: showed LAD patent stent in the prox LAD, in the mid LAD there is an 80% stenosis in small vessel not amenable to intervention. Approx 50% stenosis in the prox first diag. LVEF 675%. Medical tx was advised. 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, LVEDP 13 mmHg, LVEF 60% - MPI at [facility] on 05/20/22: Moderate-sized, mild severity, reversible perf defect along basilar to mid anterolateral and distal inferoseptal wall (SSS 5, SRS 1, SDS 4) reported to be indeterminate for ischemia, now RWMA, LVEF 75% at rest and 74% after stress - Cardiac cath of 06-25-22 showed moderate CAD, patent stent in the prox LAD. LVEDP 10 mmHg LVEF 50-55% - Cardiac cath of 09-23-[address] 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 Dominant right coronary artery with no significant obstructive disease. Normal left ventricular end- diastolic pressure - Intolerance to isosorbide mononitrate (low bp) - Echocardiogram of 08-26-22 showed LVEF 55-60% CVA , December 2021 - status post tPA treatment - She reports still have minimal residual right-sided weakness (per nurse she reported that her right sided weakness is back to baseline from prior to this event) - Echo on 12-02-21: LVEF 55-60%, PASP WNL - ILR transmissions reviewed on 12-03-21 via [facility] - transmissions have not shown any a-fib/flutter - only NSR with PVC's Palpitations - . 24 HR Holter of 08-10-21 showed NSR with av HR 65 bpm. Frequent PVC (PVC burden 0.7%). No VT or SVT or signif trupti - S/P ILR implant on 08-21-21: NSR with isolated PVCs - Frequent PVCs (PVC burden 15.4%) on ILR. Followed and treated by his EP Dr Condon at [facility] (m[place]elit[place]) [place] - Sleep study of 08-13-21 showed mild [place] - following with Dr. Mcneil Carotid dz - minimal plaque per u/s of 07-06-21 HTN - controlled Scleroderma, - by history - managed by PCP Celiac dz - managed by PCP HLD - statin tx - followed by PCP H/o occular stroke Medication Intolerance/allergy - Reported allergy to ASA (however, she has been taking ASA, per her report, without difficulty) - reports h/o convulsions - Reported shellfish allergy Orthopedic - H/O chronic joint pain d/t arthritis Family h/o - premature CAD (brothers x2 and father) Dizziness and vertigo - managed by pcp Discussion and Recomendations Chest pain of undetermined etiology - no evidence of ACS thus far Continue ASA/Plavix Reports allergy to PPI, add Pepcid to regimen Restart BB, low dose d/t asymptomatic low BP Resume statin tx Monitor lab At the time of my exam, she feel well and wishes to go home. There is no evidence of ACS. Ok to d/c from cardiac standpoint. Advised to continue previous cardiac regimen. Outpt f/u advised. Advised to return to ER in case of recurrence of symptoms or new symptoms Clinical Quality Measures AMI/AHF: ASA po Prior to arrival: Yes SERENITY NINO MD FACP FAC CCDS Dec 18, 2022 17:00
--- NOTE | 2022-12-18 17:05 | Discharge Summary ---
Discharge Summary Hospital Course Was the Problem List Reviewed?: Yes Problems/Dx: (1) Chest pain Status: Acute Qualifiers: Qualified Codes: R07.9 - Chest pain, unspecified (2) Dyspnea (3) CAD (coronary artery disease) Status: Acute (4) HTN (hypertension) Status: Chronic (5) History of CVA (cerebrovascular accident) Status: Chronic Hospital Course Date of Admission: Dec 17, 2022 at 23:40 Admission Diagnosis : Family Physician/Provider: Charles Whitaker DO Date of Discharge: 12/18/22 Discharge Diagnosis: [ ] Hospital Course: Short overnight course after she was admitted for chest pain due to history of CAD. No evidence of ACS. Cardiology recommended discharge. Labs and Pending Lab Test: Laboratory Tests 12/17/22 21:40: White Blood Count 7.9, Red Blood Count 4.48, Hemoglobin 14.0, Hematocrit 41, Mean Corpuscular Volume 92, Mean Corpuscular Hemoglobin 31, Mean Corpuscular Hemoglobin Concent 34, Red Cell Distribution Width 12.0, Platelet Count 262, Mean Platelet Volume 9.2, Immature Granulocyte % (Auto) 0, Neutrophils (%) (Auto) 57, Lymphocytes (%) (Auto) 28, Monocytes (%) (Auto) 12, Eosinophils (%) (Auto) 3, Basophils (%) (Auto) 1, Neutrophils # (Auto) 4.5, Lymphocytes # (Auto) 2.2, Monocytes # (Auto) 0.9, Eosinophils # (Auto) 0.3, Basophils # (Auto) 0.0, Immature Granulocyte # (Auto) 0.0, Prothrombin Time 13.0, INR Comment 1.0, Activated Partial Thromboplast Time 32, Sodium Level 145, Potassium Level 4.0, Chloride Level 99, Carbon Dioxide Level 21, Anion Gap 25H, Blood Urea Nitrogen 13, Creatinine 0.92, Estimat Glomerular Filtration Rate 72, BUN/Creatinine Ratio 14, Glucose Level 84, Calcium Level 8.8, Corrected Calcium 8.8, Magnesium Level 2.5H, Total Bilirubin 0.5, Aspartate Amino Transf (AST/SGOT) 26, Alanine Aminotransferase (ALT/SGPT) 31, Alkaline Phosphatase 63, Myoglobin 25.8, Troponin I < 0.028, Total Protein 6.6, Albumin 4.0 12/18/22 04:13: White Blood Count 7.2, Red Blood Count 4.34, Hemoglobin 13.6, Hematocrit 40, Mean Corpuscular Volume 91, Mean Corpuscular Hemoglobin 31, Mean Corpuscular Hemoglobin Concent 34, Red Cell Distribution Width 12.0, Platelet Count 216, Mean Platelet Volume 9.7, Immature Granulocyte % (Auto) 0, Neutrophils (%) (Auto) 57, Lymphocytes (%) (Auto) 27, Monocytes (%) (Auto) 12, Eosinophils (%) (Auto) 4, Basophils (%) (Auto) 0, Neutrophils # (Auto) 4.1, Lymphocytes # (Auto) 1.9, Monocytes # (Auto) 0.8, Eosinophils # (Auto) 0.3, Basophils # (Auto) 0.0, Immature Granulocyte # (Auto) 0.0, Sodium Level 139, Potassium Level 3.5L, Chloride Level 105, Carbon Dioxide Level 22, Anion Gap 12, Blood Urea Nitrogen 15, Creatinine 0.87, Estimat Glomerular Filtration Rate 77, BUN/Creatinine Ratio 17, Glucose Level 101, Calcium Level 9.0, Troponin I < 0.028, Triglycerides Level 176H, Cholesterol Level 124, LDL Cholesterol Direct 63, VLDL Cholesterol 35, HDL Cholesterol 41 Home Meds Active Reported Mexiletine HCl 150 Mg Cap 150 Mg PO TID Diclofenac Sodium 1 % Gel..gram. 1 Applic TP TID PRN APPLY TO BOTH KNEES Oxymetazoline HCl 0.05 % [place] 2 [place] NSEACH UD PRN Ezetimibe 10 Mg Tablet 10 Mg PO HS Amlodipine Besylate 2.5 Mg Tablet 2.5 Mg PO DAILY Magnesium Oxide 500 Mg Tablet 500 Mg PO BID Metoprolol Succinate 50 Mg Tab.er.24h 50 Mg PO DAILY Loratadine 10 Mg Tab.rapdis 10 Mg PO BID Multivitamin 1 Each Tablet 1.5 Each PO DAILY TAKES 1 & TABS Victoza 3-Logan (Liraglutide) 0.6 Mg/0.1 Ml (18 Mg/3 Ml) Pen.injctr 1.8 Mg SQ DAILY Allergy Relief (Diphenhydramine HCl) 25 Mg Tablet 25 Mg PO QID PRN Rosuvastatin Calcium 40 Mg Tablet 40 Mg PO HS Ranolazine ER (Ranolazine) 1,000 Mg Tab.er.12h 1,000 Mg PO BID Tylenol (Acetaminophen) 325 Mg Capsule 325-650 Mg PO QID PRN Trazodone HCl 50 Mg Tablet 50 Mg PO HS Citalopram HBr (Citalopram Hydrobromide) 20 Mg Tablet 20 Mg PO HS Clopidogrel (Clopidogrel Bisulfate) 75 Mg Tablet 75 Mg PO DAILY Aspirin EC (Aspirin) 81 Mg Tablet.dr 81 Mg PO DAILY Levothyroxine Sodium 50 Mcg Tablet 50 Mcg PO DAILY Nitroglycerin 0.4 Mg Tab.subl 0.4 Mg SL UD PRN Assessment/Pt Instructions PCP is scheduled Discharge Planning: <30 minutes discharge planning Discharge Physical Examination Vital Signs Vital Signs Date Time Temp Pulse Resp B/P (MAP) Pulse Ox O2 Delivery O2 Flow Rate FiO2 12/18/22 16:00 65 13 98/40 (59) 98 Room Air 12/18/22 15:08 36.3 General Appearance: No Apparent Distress, WD/WN Allergies: Coded Allergies: nitrofurantoin (Verified Allergy, Severe, 03/02/20) shellfish derived (Verified Allergy, Severe, 03/02/20) atorvastatin (Verified Allergy, Intermediate, 03/02/20) pt states it makes her hurt all over/extreme pain Penicillins (Unverified Allergy, Mild, 06/09/08) Proton Pump Inhibitors (Verified Allergy, Unknown, ANGINA, 02/20/21) gluten (Verified Allergy, Unknown, 12/05/21) codeine (Verified Adverse Reaction, Mild, 12/03/21) Night terrors, psych response Discharge Summary Date of Admission Dec 17, 2022 at 23:40 Date of Discharge Discharge Date: Dec 18, 2022 Admission Diagnosis Chest pain Discharge Diagnosis (1) Chest pain Status: Acute Assessment & Plan: Pt reports experiencing chest pain on exertion PLAN: Cardiology consult CONSULTANT EDUCATION medications EKG - NS PVCs Qualifiers: Qualified Codes: R07.9 - Chest pain, unspecified (2) Dyspnea Assessment & Plan: Associated with exertion and during chest pain episodes Currently stable on RA (12/18) PLAN: Supplemental O2 if needed (3) CAD (coronary artery disease) Status: Acute Assessment & Plan: Extensive CAD, s/p stent to proximal LAD PLAN: Telemetry Cardiology consult CONSULTANT EDUCATION ASA/plavix (4) HTN (hypertension) Status: Chronic (5) History of CVA (cerebrovascular accident) Status: Chronic Clinical Quality Measures AMI/AHF: ASA po Prior to arrival: Yes LULU WAGNER DO Dec 18, 2022 17:05
== END 2022-12-18 17:20 | disposition home or self-care (01) ==
LOC: EDUNIT# 21:25 → ER 21:27 → ICU 23:40
PROVIDERS: ADMIT Internal Medicine; ATTEND Internal Medicine
DX: I25.10 Atherosclerotic heart disease of native coronary artery without angina pectoris (principal); I10 Essential (primary) hypertension; E78.5 Hyperlipidemia, unspecified; I63.9 Cerebral infarction, unspecified; I65.29 Occlusion and stenosis of unspecified carotid artery; R53.1 Weakness; G47.33 Obstructive sleep apnea (adult) (pediatric); R00.2 Palpitations; M34.9 Systemic sclerosis, unspecified; K90.0 Celiac disease; M19.90 Unspecified osteoarthritis, unspecified site; R42 Dizziness and giddiness; Z79.899 Other long term (current) drug therapy; Z79.82 Long term (current) use of aspirin; Z79.01 Long term (current) use of anticoagulants; Z86.69 Personal history of other diseases of the nervous system and sense organs
CPT/HCPCS: 71045; 80048; 80053; 80061; 83735; 83874; 84484 ×2; 85025 ×2; 85610; 85730; 93005; 93041; 96372; 99284; G0378; 36415

== ENCOUNTER 2022-12-24 11:30 | Outpatient (RCR) | payer MEDICARE, MEDICAID ==
[~2022-12-24 11:30] MED LIST changes: +EZET10TA49 PO; +MAGN500T PO
== END 2022-12-24 17:00 | disposition home or self-care (01) ==
PROVIDERS: ATTEND Pediatrics
DX: R47.9 Unspecified speech disturbances (principal)